=== PATIENT | female | born 1960 | race Caucasian/White ===

== ENCOUNTER 2022-04-14 08:03 | Outpatient (CLI) | payer OTHER, SELFPAY | END 2022-04-14 08:04 | disposition home or self-care (01) | LOC: WOUND 08:04 | PROVIDERS: PCP Nurse Practitioner; Visit Provider Nurse Practitioner Family | DX: L59.9 Disorder of the skin and subcutaneous tissue related to radiation, unspecified (principal) | CPT/HCPCS: 11042; 97597 ==

== ENCOUNTER 2022-04-28 08:00 | Outpatient (CLI) | payer OTHER, SELFPAY | END 2022-04-28 08:01 | disposition home or self-care (01) | LOC: WOUND 08:00 | PROVIDERS: Visit Provider Nurse Practitioner Family | DX: L59.8 Other specified disorders of the skin and subcutaneous tissue related to radiation (principal); L03.115 Cellulitis of right lower limb | CPT/HCPCS: 11042 ==

== ENCOUNTER 2022-05-05 07:59 | Outpatient (CLI) | payer OTHER, SELFPAY | END 2022-05-05 08:00 | disposition home or self-care (01) | LOC: WOUND 07:59 | PROVIDERS: Visit Provider Nurse Practitioner Family | DX: L59.9 Disorder of the skin and subcutaneous tissue related to radiation, unspecified (principal); L03.115 Cellulitis of right lower limb | CPT/HCPCS: 97597 ==

== ENCOUNTER 2022-05-19 08:28 | Outpatient (CLI) | payer OTHER, SELFPAY | END 2022-05-19 08:29 | disposition home or self-care (01) | LOC: WOUND 08:29 | PROVIDERS: Visit Provider Nurse Practitioner Family | DX: L59.9 Disorder of the skin and subcutaneous tissue related to radiation, unspecified (principal); L03.115 Cellulitis of right lower limb | CPT/HCPCS: 97597 ==

== ENCOUNTER 2022-06-02 08:30 | Outpatient (CLI) | payer OTHER, SELFPAY | END 2022-06-02 08:31 | disposition home or self-care (01) | LOC: WOUND 08:30 | PROVIDERS: Visit Provider Nurse Practitioner Family | DX: L59.9 Disorder of the skin and subcutaneous tissue related to radiation, unspecified (principal); I87.311 Chronic venous hypertension (idiopathic) with ulcer of right lower extremity; L97.812 Non-pressure chronic ulcer of other part of right lower leg with fat layer exposed | CPT/HCPCS: 99212 ==

== ENCOUNTER 2022-06-16 12:28 | Outpatient (CLI) | payer OTHER, SELFPAY | END 2022-06-16 12:29 | disposition home or self-care (01) | LOC: WOUND 12:28 | PROVIDERS: Visit Provider Nurse Practitioner Family | DX: I87.311 Chronic venous hypertension (idiopathic) with ulcer of right lower extremity (principal); L97.812 Non-pressure chronic ulcer of other part of right lower leg with fat layer exposed; L59.9 Disorder of the skin and subcutaneous tissue related to radiation, unspecified | CPT/HCPCS: 99212 ==

== ENCOUNTER 2022-06-30 08:28 | Outpatient (CLI) | payer OTHER, SELFPAY ==
--- OUTSIDE RECORDS SUMMARY | 2022-06-30 08:29 | XMS_ITS | Clinical Summary ---
:1960 Author Organization [facility] Address [address] [place] [address] Care Team Providers Name Role Phone Allyson Resendiz APRN, C.N.P. Primary Care Provider [phone] Source Comments Patient records contain information from all sites at [facility]. For routine questions regarding patient records, call [phone] during business hours, M-F 8:00 AM - 5:00 PM Central Time. Record requests for emergency care only can be directed to [phone] at any time.[facility] Allergies Active Allergy Reactions Severity Noted Date Comments Adhesive Other (see comments) 01/21/2021 Skin it tay, bumpy and skin reddened in are a covered by bandaid Medications Medication Sig Dispensed Refills Start Date End Date Status B complex-vitamins (B Take 1 tablet 0 07/09/2014 Active COMPLEX 1) tablet by mouth daily. FSH/FLX/PRIM/CUR/BOR/OM3,6 Take 1 0 01/21/2014 Active ,9 5 (OMEGA 3-6-9 FATTY capsule by ACIDS ORAL) mouth daily. UNABLE TO FIND daily. 0 09/30/2013 Acti ve Amberen calcium carbonate-vitamin Take 1 tablet 0 04/04/2012 Active D3 (CALCIUM 600 + D,3,) by mouth 600 mg calcium- 200 unit daily. capsule tcniilvcpifm-Gh-adfw-quartz miner blasting Take 1 tablet 0 0 Active als tablet by mouth daily. verapamiL (VERELAN) 180 mg Take 1 30 capsule 1 04/14/2021 Active 24 hr capsuleIndications: capsule (180 Raynaud's Disease mg total) by mouth daily as needed (Reynaud's disease). atorvastatin (LIPITOR) 20 TAKE 1 90 tablet 3 08/29/2021 Active mg tabletIndications: TABLET(20 MG) Hypercholesterolemia BY MOUTH AT BEDTIME Active Problems Patient Care Coordination Note Formatting of this note might be differe nt from the original. 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 Last Assessment & Plan: Amanda is here for wound care of a cancer excision that was removed from her mid tibial shaft of the right leg. The area of the wound is 2 cm x 2 cm. There is no open area. The wound is healed. She has a dark staining on 2% of the wound from s ilver dressing. The wound was cleansed with saline and Hibiclens rinse well and dried. Skin prep was applied with a small medical legs border light. She will keep the area covered so the new skin well r ub on her pants. She is discharged from wound care and wi ll return only if needed Acne Rosacea 09/30/2014 Nodule Thyroid 04/28/2014 Overview: Per chest CT Hyperplasia Complex Endometrial Without Atypia 014 Nodule Pulmonary 01/27/2014 Overview: Right upper lobe /CT: benign appearing c alcification repeat CT in 3 months for stability Depression/Mireya/Bipolar NOS 12/13/2013 Overview: Mood disorder NOS. Hypercholesterolemia 03/23/2010 Raynaud's Disease 03/23/2010 Resolved Problems Problem Noted Date Resolved Date Varicose Vein Lower Extremity 06/11/2010 09/19/2017 Immunizations Name Administration Dates Next Due Influenza, Injectable, Quadrivalent 07/11/2019, 07/13/2017, 07/08/2015 Influenza, Unspecified 07/29/2016, 08/05/2015, 07/22/2014, 08/05/2013, 09/25/2012 Tdap 03/23/2010 influenza vaccine quad 09/18/2018 (FLUZONE/FLUARIX) (6 months and older)(PF) Family History Medical History Relation Name Comments Skin cancer Father Brain Tumor Mother Hyperlipidemia Mother Relation Name Status Comments Father Mother Social History Tobacco Use Types Packs/Day Years Used Date Smoking Tobacco: Never Smokeless Tobacco: Never Tobacco Cessation: Counseling Given: Yes Alcohol Use Standard Drinks/Week Comments Yes 0 (1 standard drink = 0.6 oz pure alcoho l) occassionally Alcohol Habits Answer Date Recorded How often do you have a drink containing alcohol? Never 02/02/2021 How many drinks containing alcohol do you have on a Not aske d typical day when you are drinking? How often do you have six or more drinks on one occasion? No t asked Comment: occassionally 09/19/2017 Social Isolation Answer Date Recorded In a typical week, how many times do you Patient refused 02/02/2021 talk on the phone with family, friends, or neighbors? How often do you get together with friends Patient refused 02/02/2021 or relatives? How often do you attend worship or christianity More than 4 time s per year 02/02/2021 services? Do you belong to any clubs or organizations No 02/02/2021 such as worship groups, unions, fraternal or athletic groups, or school groups? How often do you attend meetings of the Never 02/02/2021 clubs or organizations you belong to? Are you now , , , 02/02/2021 , never or living with a partner? Stress Answer Date Recorded Do you feel stress - tense, restless, nervous, or Only a lit tle 01/14/2021 anxious, or unable to sleep at night because your mind is troubled all the time - these days? Financial Resource Strain Answer Date Recorded How hard is it for you to pay for the very basics like Not h miya at all 02/02/2021 food, housing, medical care, and heating? Intimate Partner Violence Answer Date Recorded Within the last year, have you been afraid of your partner o r No 02/02/2021 ex-partner? Within the last year, have you been humiliated or emotionall y No 02/02/2021 abused in other ways by your partner or ex-partner? Within the last year, have you been kicked, hit, slapped, or No 01/14/2021 otherwise physically hurt by your partner or ex-partner? Within the last year, have you been raped or forced to have any No 02/02/2021 kind of sexual activity by your partner or ex-partner? Food Insecurity Answer Date Recorded Within the past 12 months, you worried that your food would Never true 01/14/2021 run out before you got money to buy more. Within the past 12 months, the food you bought just didn't N ever true 01/14/2021 last and you didn't have money to get more. Transportation Needs Answer Date Recorded In the past 12 months, has lack of transportation kept you f rom No 02/02/2021 medical appointments or from getting medications? In the past 12 months, has lack of transportation kept you f rom No 02/02/2021 meetings, work, or getting things needed for daily living? Housing Stability Answer Date Recorded In the last 12 months, was there a time when you were not No t asked able to pay the mortgage or rent on time? In the last 12 months, how many places have you lived? 1 02/02/2021 In the last 12 months, was there a time when you did not hav e Yes 02/02/[address] or slept in a long term (including now)? Education Answer Date Recorded What is the highest level of school Associate degree: monica patel, 02/02/2021 you have completed or the highest technical, or vocational p dariusz degree you have received? Sex Assigned at Date Recorded Not on file Last Filed Vital Signs Vital Sign Reading Time Taken Comments Blood Pressure 113/65 04/14/2021 2:51 PM CDT Pulse 77 04/14/2021 2:51 PM CDT Temperature 35.8 ??C (96.4 ??F) 04/14/2021 2:51 PM CDT Respiratory Rate 16 04/14/2021 2:51 PM CDT Oxygen Saturation 100% 01/27/2021 11:12 AM CDT Inhaled Oxygen Concentration - - Weight 80.4 kg (177 lb 4 oz) 04/14/2021 2:51 PM CDT Height 179.5 cm (5' 10.67) 04/14/2021 2:51 PM CDT Body Mass Index 24.95 04/14/2021 2:51 PM CDT Plan of Treatment Health Maintenance Due Date Last Done Comments CT Colonography 1960 Cologuard 1960 HIV Screening 1960 Hepatitis B Vaccines (1 of 1960 3 - 3-dose series) Zoster Vaccines (1 of 2) 02/29/2012 DTaP,Tdap,and Td Vaccines 03/23/2020 03/23/2010 (2 - Td or Tdap) Depression Screening 10/16/2021 (Annual PHQ-2) COVID-19 Vaccine (2 - 11/19/2021 10/22/2021 Moderna series) Influenza Vaccine (#1) 2022 07/11/2019, 09/18/2018, 07/13/2017, Additional history exists Colonoscopy 09/25/2022 09/25/2017 (Performed elsewhere), 06/14/2012 Colorectal Cancer 09/25/2022 Surveillance Mammogram 10/26/2022 10/26/2021, 10/20/2020, 10/17/2019, Additional history exists Fasting Glucose for 09/22/2024 09/22/2021, 09/18/2018, Diabetes Screening 10/03/2016, Additional history exists Lipid (Cholesterol) 09/22/2026 09/22/2021, 09/18/2018, Screening 09/19/2017, Additional history exists Pneumococcal vaccine (0-64 Aged Out No lo nger eligible years) based on patient 's age to complete this topic Insurance Payer Benefit Plan / Subscriber ID Effective Phone Address T ype Group Dates [facility] [id number] 2015-Pres [phone] [address] PPO OPEN ACCESS ent [address] [place] [address] Care Teams Automotive Power Electronics Engineer Relationship Specialty Start Date End Date Allyson Resendiz, ASHIA, C.N.P. PCP - General 03/30/17 [address] [facility] [phone] (work)
--- OUTSIDE RECORDS SUMMARY | 2022-06-30 08:29 | XMS_ITS | Encounter Summary ---
:1960 Author Organization [facility] Address [address] [place] [address] Care Team Providers Name Role Phone Allyson Resendiz APRN, C.N.P. Primary Care Provider [phone] Encounter Details Date Type Department Care Team Description 09/22/2021 Orders Only Department of Family Allyson Resendiz APR N, Medicine, [facility], C.N. P. in [facility] [address] [address] [place] [address] [phone] Social History Tobacco Use Types Packs/Day Years Used Date Smoking Tobacco: Never Smokeless Tobacco: Never Alcohol Use Standard Drinks/Week Comments Yes 0 [...] or relatives? How often do you attend caodaism or christian More than 4 time s per year 02/02/2021 services? Do you belong to any clubs or organizations No 02/02/2021 such as caodaism groups, unions, fraternal or athletic groups, or [...] place to sleep or slept in a jail (including now)? Education Answer Date Recorded What is the highest level of school Associate degree: monica patel, 02/02/2021 you have completed or the highest technical, or vocational p dariusz degree you have received? Sex Assigned at Date Recorded Not on file documented as of this encounter Plan of Treatment Not on filedocumented as of this encounter Visit Diagnoses Not on filedocumented in this encounter Care Teams Yard Inspector Relationship Specialty Start Date End Date Allyson Resendiz, ASHIA, C.N.P. PCP - General 03/30/17 [address] [place] [phone] documented as of this encounter
--- OUTSIDE RECORDS SUMMARY | 2022-06-30 08:29 | XMS_ITS | Clinical Summary ---
:1960 Author Organization [facility] [place] [address] Care Team Providers Name Role Phone Ember Hebert GEAR REPAIR SUPERVISOR Unavailable Allyson Resendiz NP Unavailable Allyson Resendiz NP Primary Care Provider Allergies Active Allergy Reactions Severity Noted Date Comments Adhesive Rash 01/21/2021 Skin itchy, bum py and skin reddened in area covered by bandaid Medications Medication Sig Dispensed Refills Start Date End Date Status VERAPAMIL HCL Take 180 mg by 0 A ctive (VERAPAMIL ORAL) mouth once daily. MULTIVITAMIN ORAL Take 1 tablet by 0 Active mouth once daily. CALCIUM Take 1 tablet by 0 Act kenton CARBONATE/VITAMIN D3 mouth once daily. (CALCIUM + D ORAL) MAGNESIUM CITRATE ORAL Take 1 tablet by 0 Active mouth once daily. ibuprofen (ADVIL; Take 1 tablet by 60 tablet 0 07/30/2014 Active MOTRIN) 600 mg tablet mouth 4 times daily if needed. Maximum of 3200 mg in 24 hours. vitamin B complex (B Take 1 tablet by 0 Active COMPLEX 1) tablet mouth once daily. FSH/FLX/PRIM/CUR/BOR/OM Take 1 capsule by 0 Active 3,6,9 5 (OMEGA 3-6-9 mouth. FATTY ACIDS ORAL) atorvastatin (LIPITOR) TAKE 1 TABLET(20 0 09/14/2020 Active 20 mg tablet MG) BY MOUTH AT BEDTIME Active Problems Problem Noted Date Other acne Raynaud's syndrome Family History Medical History Relation Name Comments Cancer-breast Neg. Relation Name Status Comments Neg. Social History Tobacco Use Types Packs/Day Years Used Date Never Smoker Smokeless Tobacco: Never Used Alcohol Use Standard Drinks/Week Comments No 0 (1 standard drink = 0.6 oz pure alcoho l) rarely Alcohol Habits Answer Date Recorded How often do you have a drink containing alcohol? Not asked How many drinks containing alcohol do you have on a typical Not asked day when you are drinking? How often do you have six or more drinks on one occasion? No t asked Comment: rarely 07/29/2014 Sex Assigned at Date Recorded Not on file Obstetrics History Last Filed Vital Signs Vital Sign Reading Time Taken Comments Blood Pressure 122/63 08/19/2021 4:14 PM CDT Pulse 70 08/19/2021 5:37 PM CDT Temperature 37.1 ??C (98.7 ??F) 08/19/2021 4:14 PM CDT Respiratory Rate 16 08/19/2021 4:14 PM CDT Oxygen Saturation 100% 08/19/2021 5:37 PM CDT Inhaled Oxygen Concentration - - Weight 77.1 kg (169 lb 14.4 oz) 08/19/2021 5:37 PM CDT Height 177.8 cm (5' 10) 03/22/2019 1:48 PM CDT Body Mass Index 24.38 03/22/2019 1:48 PM CDT Plan of Treatment Health Maintenance Due Date Last Done Comments COVID-19 vaccine series (#1) 1960 Tdap 1973 Depression screening for age 12+ 1974 Hepatitis C screening for age 18-79 02/29/1980 Tetanus booster 1982 Pap test for age 21-65 1983 Lipids for age 45-75 2007 Mammogram for age 45-75 03/06/2010 03/06/2009, 02/20/2008 Zoster (shingles) series for age 50+ (1 of 02/29/2012 2) BMI (ht and wt on same day) for age 18+ 03/22/2020 03/22/20 19 Influenza for age 50-64 06/16/2022 Colonoscopy through age 75 09/25/2027 09/25/2017 Results Not on filefrom Last 3 Months Insurance Payer Benefit Plan / Subscriber ID Effective Dates Phone Addre ss Type Group [facility] [id number] 2015-en [address] [place] [address] BLUE CROSS BLUE CROSS OF [id number] 2013-Katie [address] [facility] [place] [address] Amanda Osorio Personal/Family Self 1960 [id number] (Home) [place] [id number] Advance Directives Latest Code Status on File Code Status Date Activated Date Inactivated Comments Full Code 09/25/2017 10:29 AM 09/25/2017 4:37 PM Full Code 07/28/2014 6:00 PM 07/30/2014 2:04 PM Care Teams Senior Sales Operations Analyst Relationship Specialty Start Date End Date Allyson Resendiz NP PCP - General Nurse Practitioner 03/17/16 Ember Hebert NP 06/21/[address] [place] [address] Allyson Resendiz NP Nurse Practitioner 12/16/13
--- OUTSIDE RECORDS SUMMARY | 2022-06-30 08:29 | XMS_ITS | Encounter Summary ---
:1960 Author Organization [facility] Address [address] [place] [address] Care Team Providers Name Role Phone Allyson Resendiz APRN C.N.PKarol Primary Care Provider [phone] Reason for Referral Outpatient (Routine) - Closed Specialty Diagnoses / Procedures Referred By Contact Refer red To Contact Diagnoses Screening Mammogram Breast Cancer Allyson Resendiz APRN, [facility] Region Procedures BI Breast Screening Bilateral with Tomosynthesis C.N.P. [address] [phone] Referral ID Status Reason Start Date Expiration Date Visits Requ ested Visits Authorized [id number] Closed 10/05/2021 10/05/2022 1 1 SAFETY COORDINATOR Reason for Visit Outpatient (Routine) - Closed Specialty Diagnoses / Procedures Referred By Contact Refer red To Contact Diagnoses Screening Mammogram Breast Cancer Allyson Resendiz APRN, [facility] Region Procedures BI Breast Screening Bilateral with Tomosynthesis C.N.P. [address] [place] [phone] Referral ID Status Reason Start Date Expiration Date Visits Requ ested Visits Authorized [id number] Closed 10/05/2021 10/05/2022 1 1 Encounter Details Date Type Department Care Team Description 10/26/2021 Hospital Encounter Department of Allyson Resendiz Mammogram Radiology john Luther APRN C.N.P. Breast Cancer [place], [place] [address] [place] [phone] Social History Tobacco Use Types Packs/Day Years [...] or relatives? How often do you attend sikhism or rastafari More than 4 time s per year 02/02/2021 services? Do you belong to any clubs or organizations No 02/02/2021 such as sikhism groups, unions, fraternal or athletic groups, or [...] on file documented as of this encounter Medications at Time of Discharge Medication Sig Dispensed Refills Start Date End Date atorvastatin (LIPITOR) 20 mg TAKE 1 TABLET(20 90 tablet 3 1 10/29/2020 tabletIndications: MG) BY MOUTH AT Hypercholesterolemia BEDTIME B complex-vitamins (B COMPLEX Take 1 tablet by 0 07/09/2014 1) tablet mouth daily. calcium carbonate-vitamin D3 Take 1 tablet by 0 0 04/04/2012 (CALCIUM 600 + D,3,) 600 mg mouth daily. calcium- 200 unit capsule FSH/FLX/PRIM/CUR/BOR/OM3,6,9 5 Take 1 capsule 0 0 01/21/2014 (OMEGA 3-6-9 FATTY ACIDS ORAL) by mouth daily. xwzekwuteenv-Ia-hsgr-minerals Take 1 tablet by 0 01/14/2010 tablet mouth daily. UNABLE TO FIND daily. Amberen 0 09/30/2013 verapamiL (VERELAN) 180 mg 24 Take 1 capsule 30 capsule 1 hr capsuleIndications: (180 mg total) Raynaud's Disease by mouth daily as needed (Reynaud's disease). documented as of this encounter Plan of Treatment Not on filedocumented as of this encounter Procedures Procedure Name Priority Date/Time Associated Comments Diagnosis BI BREAST SCREENING RAD - Routine 10/26/2021 9:53 Screening Resu lts for BILATERAL WITH (most inpatients AM SITE SAFETY COORDINATOR Mammogram Breast this procedure TOMOSYNTHESIS and all Cancer are in the outpatients) results section. documented in this encounter Results BI Breast Screening Bilateral with Tomosynthesis (10/26/2021 9:53 AM SITE SAFETY COORDINATOR) Anatomical Region Laterality Modality Breast, Breast Imaging [facility], Breast Imaging [facility], [place] Bilateral Mammography Imaging [facility] Specimen (Source) Anatomical Collection Method Collection Time Re ceived Time Location / / Volume Laterality 10/26/2021 10:00 AM SITE SAFETY COORDINATOR Impressions 10/26/2021 10:03 AM SITE SAFETY COORDINATOR Negative. RECOMMENDATION: ??Annual Screening Mammo gram ASSESSMENT: ??BI-RADS: 1: Negative. Narrative 10/26/2021 10:03 AM SITE SAFETY COORDINATOR EXAM: ??BI BREAST SCREENING BILATERAL WITH TOMOSYNTHESIS Current study was evaluated with a [employer] Aided Detection (CAD) system. INDICATION: ??Screening mammogram. COMPARISON: ??Prior exam(s) were availab le and reviewed for comparison. DENSITY: ??c. The breast(s) are heteroge neously dense, which may obscure small masses. FINDINGS: ??No findings of malignancy. ? ?No significant change since prior exam. Procedure Note Mark Brush M.D. - 10/26/2021Formattin g of this note might be different from the original. EXAM: BI BREAST SCREENING BILATERAL WITH TOMOSYNTHESIS Current study was evaluated with a [employer] Aided Detection (CAD) system. INDICATION: Screening mammogram. COMPARISON: Prior exam(s) were available and reviewed for comparison. DENSITY: c. The breast(s) are heterogene ously dense, which may obscure small masses. FINDINGS: No findings of malignancy. No significant change since prior exam. IMPRESSION: Negative. RECOMMENDATION: Annual Screening Mammogr am ASSESSMENT: BI-RADS: 1: Negative. Jose Maria Paz APRNNGertrudis IMG BI PROCEDURES documented in this encounter Visit Diagnoses Diagnosis Screening Mammogram Breast Cancer documented in this encounter Care Teams Internet Retailer Relationship Specialty Start Date End Date Allyson Resendiz APRN, C.N.P. PCP - General 03/30/17 [address] [place] [phone] documented as of this encounter
--- OUTSIDE RECORDS SUMMARY | 2022-06-30 08:30 | XMS_ITS | Encounter Summary ---
:1960 Author Organization [facility] Address [address] [place] [address] Care Team Providers Name Role Phone Allyson Resendiz APRN, C.N.P. Primary Care Provider [phone] Reason for Visit Reason Comments Med Refill Encounter Details Date Type Department Care Team Description 10/14/2020 Refill Department of Family Medicine, [place] Resendiz APRN, Med Refill [facility], in C.N.P. [place], [place] [address] [address] [place], [place] [address] [phone] Social History Tobacco Use Types Packs/Day Years [...] or relatives? How often do you attend cheondoism or episcopalian More than 4 time s per year 02/02/2021 services? Do you belong to any clubs or organizations No 02/02/2021 such as cheondoism groups, unions, fraternal or athletic groups, or [...] place to sleep or slept in a fdc (including now)? Sex Assigned at Date Recorded Not on file documented as of this encounter Plan of Treatment Not on filedocumented as of this encounter Visit Diagnoses Diagnosis Raynaud's Disease documented in this encounter Care Teams Manager Pediatric Relationship Specialty Start Date End Date Allyson Resendiz, ASHIA, C.N.P. PCP - General 03/30/[address] [place] [phone] documented as of this encounter
--- OUTSIDE RECORDS SUMMARY | 2022-06-30 08:30 | XMS_ITS | Encounter Summary ---
:1960 Author Organization [facility] Address [address] [place] [address] Care Team Providers Name Role Phone Allyson Resendiz APRN C.N.P. Primary Care Provider [phone] Encounter Details Date Type Department Care Team Description 02/25/2021 Orders Only Department of Replaced By [facility] Internal Medicine in Jose Maria ANGNAlfred Roberson [place], [place] [address] [facility] [address] [place] [phone] (Wo rk) Social History Tobacco Use Types Packs/Day Years [...] or relatives? How often do you attend adventism or pentecostal More than 4 time s per year 02/02/2021 services? Do you belong to any clubs or organizations No 02/02/2021 such as adventism groups, unions, fraternal or athletic groups, or [...] place to sleep or slept in a skilled nursing (including now)? Education Answer Date Recorded What [...] on filedocumented in this encounter Care Teams Inside Sales Person Relationship Specialty Start Date End Date Allyson Resendiz, ASHIA, C.N.P. PCP - General 03/30/17 [address] [place] [phone] documented as of this encounter
--- OUTSIDE RECORDS SUMMARY | 2022-06-30 08:30 | XMS_ITS | Encounter Summary ---
:1960 Author Organization [facility] Address [address] [place] [address] Care Team Providers Name Role Phone Allyson Resendiz APRN, C.N.P. Primary Care Provider [phone] Reason for Visit Reason Comments Med Refill Encounter Details Date Type Department Care Team Description 09/10/2020 Refill Department of Family Medicine, [place] Resendiz APRN, Med Refill [facility], in C.N.P. [place], [place] [address] [address] [place], [place] [phone] [phone] Social History Tobacco Use Types Packs/Day Years [...] How often do you attend worship or mandaen More than 4 time s per year [...] place to sleep or slept in a group home (including now)? Sex Assigned at Date Recorded Not on file documented as of this encounter Plan of Treatment Not on filedocumented as of this encounter Visit Diagnoses Diagnosis Hypercholesterolemia documented in this encounter Care Teams Medical Office Technologist Relationship Specialty Start Date End Date Allyson Resendiz, ASHIA, C.N.P. PCP - General 03/30/[address] [phone] documented as of this encounter
--- OUTSIDE RECORDS SUMMARY | 2022-06-30 08:30 | XMS_ITS | Encounter Summary ---
:1960 Author Organization [facility] Address [address] [place] [address] Care Team Providers Name Role Phone Allyson Resendiz APRN, C.N.P. Primary Care Provider [phone] Reason for Visit Reason Comments Med Refill Encounter Details Date Type Department Care Team Description 08/26/2021 Refill Department of Family Medicine, [place] Resendiz APRN, Med Refill [facility], in [place], [place] [address] [address] [place] [address] [phone] Social History Tobacco Use Types Packs/Day Years [...] or relatives? How often do you attend taoist or temple More than 4 time s per year 02/02/2021 services? Do you belong to any clubs or organizations No 02/02/2021 such as taoist groups, unions, fraternal or athletic groups, or [...] place to sleep or slept in a assisted (including now)? Education Answer Date Recorded What [...] Hypercholesterolemia documented in this encounter Care Teams Parts Designer Relationship Specialty Start Date End Date Allyson Resendiz, ASHIA, C.N.P. PCP - General 03/30/[address] [place] [address] documented as of this encounter
--- OUTSIDE RECORDS SUMMARY | 2022-06-30 08:30 | XMS_ITS | Encounter Summary ---
:1960 Author Organization [facility] Address [address] [place] [address] Care Team Providers Name Role Phone Allyson Resendiz APRN, C.N.P. Primary Care Provider [phone] Reason for Visit Reason Comments Other infection on right lower leg . Appointment Request (Routine) - Closed Specialty Diagnoses / Procedures Referred By Contact Refer red To Contact Family Medicine Referral ID Status Reason Start Date Expiration Date Visits Requ ested Visits Authorized [id number] Closed 01/14/2021 01/14/2022 1 1 Encounter Details Date Type Department Care Team Description 01/14/2021 Office Visit Department of Kimber Coy In[facility] ASHIA, C.N .P. Postoperative Initial Medicine in [address] [place] [address] (Primary Dx) [address] [address] [place], [place] [phone] [address] (Work) [phone] Social History Tobacco Use Types Packs/Day Years [...] or relatives? How often do you attend episcopalian or mu-ism More than 4 time s per year 02/02/2021 services? Do you belong to any clubs or organizations No 02/02/2021 such as episcopalian groups, unions, fraternal or athletic groups, or [...] place to sleep or slept in a retirement (including now)? Sex Assigned at Date Recorded Not on file documented as of this encounter Last Filed Vital Signs Vital Sign Reading Time Taken Comments Blood Pressure 111/55 01/14/2021 3:20 PM CDT Pulse 83 01/14/2021 3:20 PM CDT Temperature 37.2 ??C (99 ??F) 01/14/2021 3:20 PM CDT Respiratory Rate 16 01/14/2021 3:20 PM CDT Oxygen Saturation - - Inhaled Oxygen Concentration - - Weight - - Height - - Body Mass Index - - documented in this encounter Patient Instructions Patient InstructionsDuKimber clemens APRN, C.N.P. - 01/14/2021 3:00 PM CDT 1. Change the wound daily. 2. Cleanse the wound with Hibiclens and water. 3.Rinse well and pat dry. 4.Apply the santyl to the wound bed only and cover with 2 x 2 gauze. 5. Apply the skin prep to the periwound skin and allow to dry. Open over a sink or garbage 6 Apply the telfa island 7. Ok to leave the dressing on when you shower. 8. Go to the ER if the redness travels beyond the skin marker.Flu like symptoms: fever, chills, headache 9. Return in one week. documented in this encounter Progress Notes Kimber Coy APRN, C.N.P. - 01/14/2021 3:00 PM CDT SUBJECTIVE CHIEF COMPLAINT / REASON FOR VISIT Amanda Osorio is a 60 y.o. female who presents for evaluation of Other (infection on right lower leg.). HISTORY OF PRESENT ILLNESS Amanda is here for initial wound care visit. She had been getting wound care at [facility]. She is here for 2nd opinion. 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 She had 21 courses of radiation last July- August. She has had infections and has been on various antibiotics since October and November. She currentlyis on cephalexin starting yesterday as ordered by the patient ambassador. The following portions of the patient's history were reviewed and updated as appropriate: allergies, current medications, family history, medical history, social history, surgical history and problem list. OBJECTIVE BP 111/55 (BP Location: Left arm, Patient Position: Sitting, Cuff Size: Regular) Pulse 83 Temp 37.2 ??C (Temporal) Resp 16 All other systems reviewed and are negative. PHYSICAL EXAMINATION Constitutional: well nourished/hydrated/groomed, no acute distress Skin: See assessment and plan below ASSESSMENT / PLAN #1 Infection Wound Postoperative Initial Assessment & Plan: Amanda had a cancerous lesion removed with 21 radiation treatments. [facility] [place] She has been a a series of antibiotics since October and November. She is currently on cephalexin. She had wound culture done at the patient ambassador yesterday andresults are pending. She had EpiFix applied through the Dermatology office. EpiFix is amniotic tissue which stimulates cell growth. She states it did not do much for healing. The wound on the anterior mid tibial shaft area the right lower leg measures 2.5 cm x 2 cm x 0.1 cm.The wound is mostly slough with to bubbles of red granulating type tissue in the center of the wound. She has a large area of periwound erythema with a red streak running down her medial leg to below her inner malleolus. This area was outlined with a skin marker. The wound was cleansed with saline and Hibiclens, rinsed well with saline and dried. Due to the amount of slough within the wound bed, Santyl was applied to the wound bed only covered with a sterile 2 x 2. Skin prep was applied around the periwound skin allowed to dry and a Telfa island was applied. She was given 1 g Rocephin with lidocaine. She will continue taking her cephalexin oral medication. She will return 1 week for ongoing wound care. She has been experiencing chills. I requested that if the erythema goes beyond the skin markings of today that she present to the emergency department. She has cellulitis and the erythema has advanced quickly per her report today. I also did mention if she has any fevers or chills headaches any flu-like feeling or symptoms she needs to get to the ER for the cellulitis. She verbalized understanding. Orders: - cefTRIAXone 1 g in lidocaine 1%; 1 g, intramuscular, Once, [facility] 01/14/21 at 1615, For 1 doseFOR IM INJECTION ONLY DO NOT GIVE IF PATIENT HAS LIDOCAINE ALLERGY Reconstitute with lidocaine 1% to a concentration of 350 mg/mL: 500 mg vial: add 1 mL 1 g vial: add 2.1 mL 2 g vial: add 4.2 mL Lidocaine volume is the reconstitution volume - draw up appropriate dose Record configured for RN compounding, check math before compounding Drug Monitoring Program: Pharmacist to adjust medication dosing based on indication and drug clearance factors.Indications: Skin and soft tissue infection She will return in 1 week for ongoing wound care documented in this encounter Miscellaneous Notes Assessment & Plan Note - Kimber Coy APRN, C.N.P. - 01/14/2021 6:06 PM CDT Associated Problem(s): Infection Wound Postoperative Subsequent Amanda had a cancerous lesion removed with 21 radiation treatments. [facility] [place]. She has been a a series of antibiotics since October and November. She is currently on cephalexin. She had wound culture done at the patient ambassador yesterday andresults are pending. She had EpiFix applied through the Dermatology office. EpiFix is amniotic tissue which stimulates cell growth. She states it did not do much for healing. The wound on the anterior mid tibial shaft area the right lower leg measures 2.5 cm x 2 cm x 0.1 cm.The wound is mostly slough with to bubbles of red granulating type tissue in the center of the wound. She has a large area of periwound erythema with a red streak running down her medial leg to below her inner malleolus. This area was outlined with a skin marker. The wound was cleansed with saline and Hibiclens, rinsed well with saline and dried. Due to the amount of slough within the wound bed, Santyl was applied to the wound bed only covered with a sterile 2 x 2. Skin prep was applied around the periwound skin allowed to dry and a Telfa island was applied. She was given 1 g Rocephin with lidocaine. She will continue taking her cephalexin oral medication. She will return 1 week for ongoing wound care. She has been experiencing chills. I requested that if the erythema goes beyond the skin markings of today that she present to the emergency department. She has cellulitis and the erythema has advanced quickly per her report today. I also did mention if she has any fevers or chills headaches any flu-like feeling or symptoms she needs to get to the ER for the cellulitis. She verbalized understanding. documented in this encounter Plan of Treatment Not on filedocumented as of this encounter Visit Diagnoses Diagnosis Infection Wound Postoperative Initial - Primary documented in this encounter Administered Medications Inactive Administered Medications - up to 3 most recent administrations Medication Order MAR Action Action Date Dose Rate Site cefTRIAXone 1 g in Given 01/14/2021 4:18 PM 1 g Left Ventrogluteal lidocaine 1% CDT 1 g, intramuscular, Once, [place] 01/14/21 at 1615, For 1 dose, FOR IM INJECTION ONLY DO NOT GIVE IF PATIENT HAS LIDOCAINE ALLERGY Reconstitute with lidocaine 1% to a concentration of 350 mg/mL: 500 mg vial: add 1 mL 1 g vial: add 2.1 mL 2 g vial: add 4.2 mL Lidocaine volume is the reconstitution volume - draw up appropriate dose Record configured for RN compounding, check math before compounding , Drug Monitoring Program: Pharmacist to adjust medication dosing based on indication and drug clearance factors., Indications: Skin and soft tissue infection documented in this encounter Care Teams Buckle Assembler Relationship Specialty Start Date End Date Allyson Resendiz APRN, C.N.P. PCP - General 03/30/170 [address] [facility] [place] [address] documented as of this encounter
--- OUTSIDE RECORDS SUMMARY | 2022-06-30 08:30 | XMS_ITS | Encounter Summary ---
:1960 Author Organization [facility] Address [address] [place] [address] Care Team Providers Name Role Phone Astrid Allyosn Luther APRN, C.N.P. Primary Care Provider [phone] Encounter Details Date Type Department Care Team Description 02/02/2021 Orders Only [facility] PCP TH Sa torri Ramsay M.D. [address] [place], [place] [phone] (Wo rk) Social History Tobacco Use Types [...] or relatives? How often do you attend evangelical or moravian More than 4 time s per year 02/02/2021 services? Do you belong to any clubs or organizations No 02/02/2021 such as evangelical groups, unions, fraternal or athletic groups, or [...] place to sleep or slept in a senior living (including now)? Education Answer Date Recorded What is the highest level of school Associate degree: mnoica patel, 02/02/2021 you have completed or the highest technical, or vocational saeid arzola degree you have received? Sex Assigned at Date Recorded Not on file documented as of this encounter Plan of Treatment Not on filedocumented as of this encounter Visit Diagnoses Not on filedocumented in this encounter Care Teams Oiler Bander Relationship Specialty Start Date End Date Allyson Resendiz, ASHIA, C.N.P. PCP - General 03/30/[address] [address] documented as of this encounter
--- OUTSIDE RECORDS SUMMARY | 2022-06-30 08:30 | XMS_ITS | Encounter Summary ---
:1960 Author Organization [facility] Address [address] [place] [address] Care Team Providers Name Role Phone Allyson Resendiz APRN, C.N.P. Primary Care Provider [phone] Encounter Details Date Type Department Care Team Description 10/05/2017 Hospital Encounter Department of Allyson Resendiz Mammogram Radiology in [place] Luther, C.N.P. Average Risk Patient [place], [place] [address] [address] [phone] Social History Tobacco Use Types Packs/Day Years [...] or relatives? How often do you attend religion or yazidi More than 4 time s per year 02/02/2021 services? Do you belong to any clubs or organizations No 02/02/2021 such as religion groups, unions, fraternal or athletic groups, or [...] place to sleep or slept in a half-way (including now)? Sex Assigned at Date Recorded Not on file documented as of this encounter Medications at Time of Discharge Medication Sig Dispensed Refills Start Date End Date B complex-vitamins (B Take 1 tablet by 0 07/09/20 14 COMPLEX 1) tablet mouth daily. calcium Take 1 tablet by 0 04/04/2012 carbonate-vitamin D3 mouth daily. (CALCIUM 600 + D,3,) 600 mg calcium- 200 unit capsule FSH/FLX/PRIM/CUR/BOR/OM Take 1 capsule by 0 01/21 3,6,9 5 (OMEGA 3-6-9 mouth daily. FATTY ACIDS ORAL) iatqjyjymumx-Ex-pomy-mi Take 1 tablet by 0 2009 nerals tablet mouth daily. UNABLE TO FIND daily. Amberen 0 09/30/2013 atorvastatin Take 1 tablet (20 mg 90 tablet 3 09/19/2017 (for_LIPITOR) 20 mg total) by mouth at tablet bedtime. ketoconazole Apply 1 application 0 09/30/2014 (for_NIZORAL) 2 % topically 2 (two) shampoo times a week. metroNIDAZOLE Apply 1 application 0 09/30/2014 (for_ROSADAN) 0.75 % topically every gel morning. tretinoin (for_RETIN-A) Apply 1 application 0 04/05/2019 0.025 % cream topically at bedtime. verapamil (for_VERELAN) Take 1 capsule (180 90 capsule 3 02/201709/18/2018 180 mg 24 hr capsule mg total) by mouth daily. Uses only in winter months documented as of this encounter Plan of Treatment Not on filedocumented as of this encounter Procedures Procedure Name Priority Date/Time Associated Comments Diagnosis BI BREAST RAD - Routine 10/05/2017 9:06 Screening Results for this SCREENING (most inpatients AM SOLAR INSTALLER TECHNICIAN Mammogram Average proced ure are in BILATERAL and all Risk Patient the results outpatients) section. documented in this encounter Results BI Breast Screening Bilateral (10/05/2017 9:06 AM SOLAR INSTALLER TECHNICIAN) Anatomical Region Laterality Modality Breast Bilateral Mammography Specimen (Source) Anatomical Collection Method Collection Time Re ceived Time Location / / Volume Laterality 10/05/2017 11:07 AM SOLAR INSTALLER TECHNICIAN Impressions 10/05/2017 11:10 AM SOLAR INSTALLER TECHNICIAN IMPRESSION: ??Benign. RECOMMENDATION: ??Annual Screening Mammo gram ASSESSMENT: ??BI-RADS: 2: Benign. Narrative 10/05/2017 11:10 AM SOLAR INSTALLER TECHNICIAN EXAM: ??BI BREAST SCREENING BILATERAL Current study was evaluated with a Compu ter Aided Detection (CAD) system. INDICATION: ??Screening mammogram. COMPARISON: ??Prior exams were available for comparison dating to 2006. DENSITY: ??c. The breast(s) are heteroge neously dense, which may obscure small masses. FINDINGS: ??No findings of malignancy. ? ?No significant change since prior exam. Mole markers are placed on the left je[address]. Stable well-circumscribed asymmetries are also stable. No suspicio us changes are observed. Procedure Note Fredrick Walker [place] - 10/05/2017 EXAM: BI BREAST SCREENING BILATERAL Current study was evaluated with a Compu ter Aided Detection (CAD) system. INDICATION: Screening mammogram. COMPARISON: Prior exams were available f or comparison dating to 2006. DENSITY: c. The breast(s) are heterogene ously dense, which may obscure small masses. FINDINGS: No findings of malignancy. No significant change since prior exam. Mole markers are placed on the left je[address]. Stable well-circumscribed asymmetries are also stable. No suspicio us changes are observed. IMPRESSION: Benign. RECOMMENDATION: Annual Screening Mammogr am ASSESSMENT: BI-RADS: 2: Benign. Allyson Resendiz APRN, C.N.P. IMG BI PROCEDURES documented in this encounter Visit Diagnoses Diagnosis Screening Mammogram Average Risk Patient documented in this encounter Care Teams Mobile Sales Assistant Relationship Specialty Start Date End Date Allyson Resendiz APRN, C.N.P. PCP - General 03/30/17 [address] [place] [address] documented as of this encounter
--- OUTSIDE RECORDS SUMMARY | 2022-06-30 08:30 | XMS_ITS | Encounter Summary ---
:1960 Author Organization [facility] Address [address] [place] [address] Care Team Providers Name Role Phone Allyson Resendiz APRN, C.N.P. Primary Care Provider [phone] Reason for Visit Reason Comments Med Refill Encounter Details Date Type Department Care Team Description 09/30/2019 Refill Department of Family Medicine, [place] Resendiz APRN, Med Refill [facility], in [place], [place] [address] [address] [place], [place] [address] [phone] Social History Tobacco Use Types Packs/Day Years [...] or relatives? How often do you attend gnosticist or restorationist More than 4 time s per year 02/02/2021 services? Do you belong to any clubs or organizations No 02/02/2021 such as gnosticist groups, unions, fraternal or athletic groups, or [...] place to sleep or slept in a [place] [facility] [place] (including now)? Sex Assigned at Date Recorded Not on file documented as of this encounter Plan of Treatment Not on filedocumented as of this encounter Visit Diagnoses Diagnosis Hypercholesterolemia documented in this encounter Care Teams Rn Neonatal Relationship Specialty Start Date End Date Allyson Resendiz, ASHIA, C.N.P. PCP - General 03/30/[address] [address] documented as of this encounter
--- OUTSIDE RECORDS SUMMARY | 2022-06-30 08:30 | XMS_ITS | Encounter Summary ---
:1960 Author Organization [facility] Address [address] [place] [address] Care Team Providers Name Role Phone Allyson Resendiz APRN, C.N.PKarol Primary Care Provider [phone] Encounter Details Date Type Department Care Team Description 08/07/2018 Orders Only Department of Family Allyson Resendiz Scr eening Mammogram Medicine, [place] C.N.PKarol Average Risk Patient Clinic, in [place], [address] (Primary Dx) [address] [address] [place], [place] [phone] [address] (Work) [phone] Social History Tobacco Use Types Packs/Day Years [...] or relatives? How often do you attend bahai or mu-ism More than 4 time s per year 02/02/2021 services? Do you belong to any clubs or organizations No 02/02/2021 such as bahai groups, unions, fraternal or athletic groups, or [...] Not on filedocumented as of this encounter Results BI Breast Screening Bilateral (10/10/2018 9:20 AM TESTING CONSULTANT) Anatomical Region Laterality Modality Breast, Breast Imaging RST LOS, Breast Imaging ARZ LOS, Cee st Bilateral Mammography Imaging FLA LOS Specimen (Source) Anatomical Collection Method Collection Time Re ceived Time Location / / Volume Laterality 10/10/2018 9:58 AM TESTING CONSULTANT Impressions 10/10/2018 10:00 AM TESTING CONSULTANT IMPRESSION: ??Negative. RECOMMENDATION: ??Annual Screening Mammo gram ASSESSMENT: ??BI-RADS: 1: Negative. Narrative 10/10/2018 10:00 AM TESTING CONSULTANT EXAM: ??BI BREAST SCREENING BILATERAL Current study was evaluated with a Compu ter Aided Detection (CAD) system. INDICATION: ??Screening mammogram. COMPARISON: ??Prior exam(s) were availab le and reviewed for comparison. DENSITY: ??c. The breast(s) are heteroge neously dense, which may obscure small masses. FINDINGS: ??No mammographic findings of malignancy. Procedure Note Natalie Powell M.D. - 10/10/2018Forma tting of this note might be different from the original. EXAM: BI BREAST SCREENING BILATERAL Current study was evaluated with a Compu ter Aided Detection (CAD) system. INDICATION: Screening mammogram. COMPARISON: Prior exam(s) were available and reviewed for comparison. DENSITY: c. The breast(s) are heterogene ously dense, which may obscure small masses. FINDINGS: No mammographic findings of ma lignancy. IMPRESSION: Negative. RECOMMENDATION: Annual Screening Mammogr am ASSESSMENT: BI-RADS: 1: Negative. Allyson Resendiz APRN, C.N.P. IMG BI PROCEDURES documented in this encounter Visit Diagnoses Diagnosis Screening Mammogram Average Risk Patient - Primary Screening Mammogram Average Risk Patient documented in this encounter Care Teams Flood Control Engineer Relationship Specialty Start Date End Date Allyson Resendiz APRN, C.N.P. PCP - General 03/30/[address] [facility] [place] [address] documented as of this encounter
--- OUTSIDE RECORDS SUMMARY | 2022-06-30 08:30 | XMS_ITS | Encounter Summary ---
:1960 Author Organization [facility] Address [address] [place] [address] Care Team Providers Name Role Phone Allyson Resendiz APRN C.N.PKarol Primary Care Provider [phone] Reason for Referral Outpatient (Routine) - Closed Specialty Diagnoses / Procedures Referred By Contact Refer red To Contact Diagnoses Screening Mammogram Breast Cancer Allyson Resendiz APRN, [facility] [place] [facility] Procedures BI Breast Screening Bilateral C.N.P. [address] [place] [address] [phone] Referral ID Status Reason Start Date Expiration Date Visits Requ ested Visits Authorized [id number] Closed 09/24/2020 09/24/2021 1 1 CE SUPPORT CLERK Reason for Visit Outpatient (Routine) - Closed Specialty Diagnoses / Procedures Referred By Contact Refer red To Contact Diagnoses Screening Mammogram Breast Cancer Allyson Resendiz APRN, [facility] [place] [facility] Procedures BI Breast Screening Bilateral C.N.P. [address] [place] [address] [phone] Referral ID Status Reason Start Date Expiration Date Visits Requ ested Visits Authorized [id number] Closed 09/24/2020 09/24/2021 1 1 Encounter Details Date Type Department Care Team Description 10/20/2020 Hospital Encounter Department of Allyson Resendiz Mammogram Radiology john Luther APRN C.N.PKarol Breast Cancer [place], [place] [address] [place] [phone] Social History Tobacco Use Types Packs/Day [...] or relatives? How often do you attend alevism or moravian More than 4 time s per year 02/02/2021 services? Do you belong to any clubs or organizations No 02/02/2021 such as alevism groups, unions, fraternal or athletic groups, or [...] slept in a long term (including now)? Sex Assigned at Date Recorded Not on file documented as of this encounter Medications at Time of Discharge Medication Sig Dispensed Refills Start Date End Date B complex-vitamins (B COMPLEX Take 1 tablet 0 1) tablet by mouth daily. calcium carbonate-vitamin D3 Take 1 tablet 0 03/17 (CALCIUM 600 + D,3,) 600 mg by mouth daily. calcium- 200 unit capsule FSH/FLX/PRIM/CUR/BOR/OM3,6,9 Take 1 capsule 0 05/2014 5 (OMEGA 3-6-9 FATTY ACIDS by mouth daily. ORAL) jlwurtetjopj-Ju-pnjk-minerals Take 1 tablet 0 10/2009 tablet by mouth daily. UNABLE TO FIND daily. Amberen 0 09/30/2013 atorvastatin (LIPITOR) 20 mg TAKE 1 90 tablet 3 020 08/27/2021 tabletIndications: TABLET(20 MG) Hypercholesterolemia BY MOUTH AT BEDTIME verapamiL (VERELAN) 180 mg 24 TAKE 1 CAPSULE 90 capsule 3 04/14/2021 hr capsuleIndications: BY MOUTH EVERY Raynaud's Disease DAY documented as of this encounter Plan of Treatment Not on filedocumented as of this encounter Procedures Procedure Name Priority Date/Time Associated Comments Diagnosis BI BREAST RAD - Routine 10/20/2020 8:45 Screening Results for this SCREENING (most inpatients AM OFFICE SUPPORT CLERK Mammogram Breast procedu re are in BILATERAL and all Cancer the results outpatients) section. documented in this encounter Results BI Breast Screening Bilateral (10/20/2020 8:45 AM OFFICE SUPPORT CLERK) Anatomical Region Laterality Modality Breast, Breast Imaging RST LOS, Breast Imaging ARZ LOS, Cee st Bilateral Mammography Imaging FLA LOS Specimen (Source) Anatomical Collection Method Collection Time Re ceived Time Location / / Volume Laterality 10/20/2020 8:50 AM OFFICE SUPPORT CLERK Impressions 10/20/2020 8:51 AM OFFICE SUPPORT CLERK Negative. RECOMMENDATION: ??Annual Screening Mammo gram ASSESSMENT: ??BI-RADS: 1: Negative. Narrative 10/20/2020 8:51 AM OFFICE SUPPORT CLERK EXAM: ??BI BREAST SCREENING BILATERAL Current study was evaluated with a Compu ter Aided Detection (CAD) system. INDICATION: ??Screening mammogram. COMPARISON: ??Prior exam(s) were availab le and reviewed for comparison. DENSITY: ??c. The breast(s) are heteroge neously dense, which may obscure small masses. FINDINGS: ??No mammographic findings of malignancy. Procedure Note Salvador Turcios M.D. - 10/20/2020Forma tting of this note might be different [...] ASSESSMENT: BI-RADS: 1: Negative. Allyson Resendiz APRN, C.N.PKarol IMLeela BI PROCEDURES documented in this encounter Visit Diagnoses Diagnosis Screening Mammogram Breast Cancer documented in this encounter Care Teams Revenue Stamp Cutter Relationship Specialty Start Date End Date Allyson Resendiz, ASHIA, C.N.P. PCP - General 03/30/[address] [place] [address] documented as of this encounter
--- OUTSIDE RECORDS SUMMARY | 2022-06-30 08:30 | XMS_ITS | Encounter Summary ---
:1960 Author Organization [facility] Address [address] [place] [address] Care Team Providers Name Role Phone Allyson Resendiz APRN, C.N.P. Primary Care Provider [phone] Encounter Details Date Type Department Care Team Description 09/18/2018 Hospital Encounter Department of Allyson Resendiz Raynaud 's Disease; Laboratory Medicine ASHIA Luther C.N .PKarol Screening Examination Diabetes Mellitus in [facility] [address] [address] [place], [place] [phone] (Work) [phone] Social History Tobacco Use Types Packs/Day Years [...] or relatives? How often do you attend methodist or christianity More than 4 time s per year 02/02/2021 services? Do you belong to any clubs or organizations No 02/02/2021 such as methodist groups, unions, fraternal or athletic groups, or [...] place to sleep or slept in a mcc (including now)? Sex Assigned at Date Recorded Not on file documented as of this encounter Medications at Time of Discharge Medication Sig Dispensed Refills Start Date End Date B complex-vitamins (B Take 1 tablet by 0 07/09/20 14 COMPLEX 1) tablet mouth daily. calcium carbonate-vitamin Take 1 tablet by 0 03/17 D3 (CALCIUM 600 + D,3,) 600 mouth daily. mg calcium- 200 unit capsule FSH/FLX/PRIM/CUR/BOR/OM3,6, Take 1 capsule by 0 0 01/21/2014 9 5 (OMEGA 3-6-9 FATTY mouth daily. ACIDS ORAL) aiostiwrtiet-Ku-mxrb-minera Take 1 tablet by 0 ls tablet mouth daily. UNABLE TO FIND daily. Amberen 0 09/30/2013 atorvastatin (LIPITOR) 20 Take 1 tablet (20 90 tablet 3 01/201810/01/2019 mg tabletIndications: mg total) by mouth Hypercholesterolemia at bedtime. ketoconazole (for_NIZORAL) Apply 1 0 4 04/05/2019 2 % shampoo application topically 2 (two) times a week. metroNIDAZOLE (for_ROSADAN) Apply 1 0 09/30/20 14 04/05/2019 0.75 % gel application topically every morning. tretinoin (for_RETIN-A) Apply 1 0 02/03/2016 0 04/05/2019 0.025 % cream application topically at bedtime. verapamil (VERELAN) 180 mg Take 1 capsule 90 capsule 3 09/1810/17/2020 24 hr capsuleIndications: (180 mg total) by Raynaud's Disease mouth daily. Uses only in winter months documented as of this encounter Plan of Treatment Not on filedocumented as of this encounter Procedures Procedure Name Priority Date/Time Associated Diagnosis Comme nts GLUCOSE, FASTING, Routine 09/18/2018 8:54 AM Screening Resu lts for this S/P LABEL PRINTING MACHINIST Examination Diabetes procedu re are in Mellitus the results section. BASIC METABOLIC Routine 09/18/2018 8:54 AM Raynaud's Disease R esults for this PANEL, S/P LABEL PRINTING MACHINIST procedure are i n the results section. documented in this encounter Results (ABNORMAL) Glucose, Fasting (09/18/2018 8:54 AM LABEL PRINTING MACHINIST) athologist Signature Glucose, 104 (H) 70 - 99 09/18/2018 [facility] Fasting, S mg/dL 11:06 AM [facility] Specimen Anatomical Collection Method Collection Time Receive d Time (Source) Location / / Volume Laterality Blood (Blood, 09/18/2018 8:54 AM 09/18/20 18 Venous) LABEL PRINTING MACHINIST 10:37 AM LABEL PRINTING MACHINIST Allyson Resendiz APRN, C.N.P. LAB BLOOD NON ADD-ON Performing Organization Address City/State/ZIP Code Phon e Number [facility] [address] [place] [phone] LAB (ABNORMAL) BMP (Basic Metabolic Panel) (09/18/2018 8:54 AM LABEL PRINTING MACHINIST) athologist Signature Potassium, S 5.6 (H) 3.6 - 5.2 09/18/2018 [facility] mmol/L 11:06 AM [facility] Sodium, S 146 (H) 135 - 145 09/18/2018 [facility] mmol/L 11:06 AM [facility] Chloride, S 107 98 - 107 09/18/2018 [facility] mmol/L 11:06 AM [facility] Bicarbonate, S 31 (H) 22 - 29 09/18/2018 [facility] mmol/L 11:06 AM [facility] Anion Gap 8 7 - 15 09/18/2018 [facility] 11:06 AM [facility] BUN (Blood Urea 14 6 - 21 09/18/2018 [facility] Nitrogen), S mg/dL 11:06 AM [facility] Creatinine 0.78 0.59 - 09/18/2018 [facility] 1.04 mg/dL 11:06 AM [facility] eGFR-Non 85 >=60 09/18/2018 [facility] Black/ mL/min/BSA 11:06 AM [facility] LAB Comment: ----ADDITIONAL INFORMATION---- Estimated GFR calculated using the 2009 CKD_EPI creatinine equation. eGFR-Black/ >90 >=60 mL/min/BSA 2017 11:06 [facility] [place] [facility] Comment: ----ADDITIONAL INFORMATION---- Estimated GFR calculated using the 2009 CKD_EPI creatinine equation. Calcium, Total, S 10.5 (H) 8.6 - 10.0 mg/dL 09/18/2018 1 1:06 AM [facility] [place] [facility] Glucose, S CANCELED mg/dL 09/18/2018 10:38 AM [facility] [place] [facility] Comment: Test not performed. See Fasting Glucose result. Result canceled by the ancillary Specimen Anatomical Collection Method Collection Time Receive d Time (Source) Location / / Volume Laterality Blood (Blood, 09/18/2018 8:54 AM 09/18/20 18 Venous) LABEL PRINTING MACHINIST 10:37 AM LABEL PRINTING MACHINIST Allyson Resendiz APRN, C.N.P. LAB BLOOD ADD-ON Performing Organization Address City/State/ZIP Code Phon e Number [facility] [address] [place] [phone] LAB documented in this encounter Visit Diagnoses Diagnosis Raynaud's Disease Screening Examination Diabetes Mellitus documented in this encounter Care Teams Infusion Rn Relationship Specialty Start Date End Date Allyson Resendiz APRN, C.N.P. PCP - General 03/30/[address] [address] documented as of this encounter
--- OUTSIDE RECORDS SUMMARY | 2022-06-30 08:30 | XMS_ITS | Encounter Summary ---
:1960 Author Organization [facility] Address [address] [place] [address] Care Team Providers Name Role Phone Allyson Resendiz APRN, C.N.P. Primary Care Provider [phone] Reason for Visit Reason Comments Sinus Problem Was seen in Urgent care at [facility] on 03/[facility]/19 & prescribed Augmentin Still not getting better. Sore Throat Appointment Request (Routine) - Closed Specialty Diagnoses / Procedures Referred By Contact Refer red To Contact Family Medicine Referral ID Status Reason Start Date Expiration Date Visits Requ ested Visits Authorized [id number] Closed 04/05/2019 04/04/2020 1 Encounter Details Date Type Department Care Team Description 04/05/2019 Office Visit Department of Family Ruma Cason, Nish sawant's Disease (Primary Dx); Medicine, Adan Martin Sinusitis; Clinic, in [address] Other Allergic Rhinitis [place], [place] [address] [address] [place], [place] [phone] [address] (Work) [phone] Social History Tobacco Use Types Packs/Day Years [...] or relatives? How often do you attend congregation or restoration More than 4 time s per year 02/02/2021 services? Do you belong to any clubs or organizations No 02/02/2021 such as congregation groups, unions, fraternal or athletic groups, or [...] or slept in a assisted (including now)? 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 - 04/05/2019 10:00 AM CDT CHIEF COMPLAINT/REASON FOR VISIT Sinus pressure and congestion HISTORY OF PRESENT ILLNESS This 59-year old female presents to clinic secondary to sinus pressure and congestion. She started to become ill 03/13/2019 with a sore throat and a fever. The symptoms persisted and she tried to go towork 03/18/2019 but was sent home. By 03/22/2019 symptoms had progressed and she went to the urgent care clinic and was prescribed a 7 day course of Augmentin. She improved to a degree but the symptomsdid not fully resolve. She feels like there is some postnasal drip and she has had episodic yellowish nasal discharge. She does have a prescription for Flonase for her allergies but she has not utilized the product. She is having no palpitations. She does have a sensation of congestion in her chest with cough. She normally follows with she normally follows with SKarol Jimenezom,CHIEF SERVICE DISPATCHER. She is taking other medications as prescribed. EMR reviewed. CURRENT MEDICATIONS Current Outpatient Medications: ??? atorvastatin (LIPITOR) 20 mg tablet, Take 1 tablet (20 mg total) by mouth at bedtime., Disp: 90 tablet, Rfl: 3 ??? B complex-vitamins (B COMPLEX 1) tablet, Take 1 tablet by mouth daily., Disp: , Rfl: ??? calcium carbonate-vitamin D3 (CALCIUM 600 + D,3,) 600 mg calcium- 200 unit capsule, Take 1 tablet by mouth daily. , Disp: , Rfl: ??? FSH/FLX/PRIM/CUR/BOR/OM3,6,9 5 (OMEGA 3-6-9 FATTY ACIDS ORAL), Take 1 capsule by mouth daily., Disp: , Rfl: ??? UNABLE TO FIND, daily. Alejandra, Disp: , Rfl: ??? verapamil (VERELAN) 180 mg 24 hr capsule, Take 1 capsule (180 mg total) by mouth daily. Uses only in winter months, Disp: 90 capsule, Rfl: 3 ??? amoxicillin-pot clavulanate (AUGMENTIN) 875-125 mg per tablet, Take 1 tablet by mouth 2 (two) times a day for 7 days., Disp: 20 tablet, Rfl: 0 No Known Allergies REVIEW OF SYSTEMS Negative review of major organ systems apart from that noted in the HPI and past medical surgical history. Past Medical History: Diagnosis Date ??? Acne Rosacea 09/30/2014 ??? Hypercholesterolemia 03/23/2010 ??? Nodule Thyroid 04/28/[address] ??? Raynaud's Disease 03/23/2010 Past Surgical History: Procedure Laterality Date ??? BIOPSY THYROID, PERCUTANEOUS CORE NEEDLE.. 06/12/2015 Negative for malignancy, benign thyroid nodule with degenerative changes. [facility] ??? COLONOSCOPY 06/14/2012 ??? COLONOSCOPY 09/25/2017 KIM/Randall Mallory, Wan miralax prep, quality good. repeat in 5yrs ??? COLPOSCOPY 03/31/2010 ??? HYSTERECTOMY ??? LAPAROSCOPIC TOTAL HYSTERECTOMY N/A 07/29/2014 Total laparoscopic hysterectomy ??? REMOVAL OF OVARIAN CYST N/A 03/30/1987 Ovarian cystectomy ??? VARICOSE VEIN STRIPPING N/A 03/30/2006 Varicose vein stripping PREVENTIVE SERVICES Tobacco use: None. Mammogram: 10/10/2018. Pap smear: 04/04/2012 Chlamydia: Non applicable secondary to stated age. Colon screenin09/25/2007 recheck plan for 5 years-Dr. Blas at [address] Depression: No Asthma: No Lipids: 09/18/2018, elevated Tdap booster: 03/23/2010. Influenza 09/18/2018 ?? SOCIAL HISTORY Alcohol monthly. No other social drugs. Caffeine weekly soda. Family History Problem Relation Age of Onset ??? Brain Tumor Mother ??? Hyperlipidemia Mother ??? Skin cancer Father Vitals: 04/05/19 0956 BP: 108/68 Pulse: 82 Resp: 20 Temp: 37.4 ??C TempSrc: Temporal SpO2: 96% Weight: 83.8 kg PHYSICAL EXAM General: Neatly dressed well groomed. HEENT: . Ears: TMs are welch, good visualization of landmarks. Nose: Mucosal membranes pink and moistbut boggy. Oral: No exudates. Teeth in good condition. No pharyngeal erythema. Neck: Range of motionconsistent with patient's stated age body habitus. Trachea midline. Lymph nodes: No cervical adenopathy. Thyroid: No thyroid masses, tenderness or enlargement. Heart: Regular rate and rhythm. No clicks, rubs or murmurs. Lungs: Clear to auscultation. No palpable chest wall masses. ASSESSMENT/PLAN 1. Sinusitis with treatment in process 2. Other allergic rhinitis with treatment to be restarted 3. Raynaud's disease currently stable Supportive measures discussed in detail. Will recommend a repeat course of generic Augmentin and newRx is sent to her pharmacy. Would recommend she restart her Flonase. She does not want a new prescription for this product. She will continue her other's prescription medications. Risks and benefits ofmedications discussed. All questions answered. Signs and symptoms to lead to emergent evaluation arereviewed. See the medication reconciliation and preventive services. She is comfortable with plan. documented in this encounter Plan of Treatment Not on filedocumented as of this encounter Visit Diagnoses Diagnosis Raynaud's Disease - Primary Sinusitis Other Allergic Rhinitis documented in this encounter Care Teams Rock Wool Insulator Relationship Specialty Start Date End Date Allyson Resendiz, ASHIA, C.N.P. PCP - General 03/30/[address] [place] [address] documented as of this encounter
--- OUTSIDE RECORDS SUMMARY | 2022-06-30 08:30 | XMS_ITS | Encounter Summary ---
:1960 Author Organization [facility] Address [address] [place] [address] Care Team Providers Name Role Phone Allyson Resendiz APRN, C.N.P. Primary Care Provider [phone] Reason for Visit Reason Comments Wound Care right lower leg Appointment Request (Routine) - Closed Specialty Diagnoses / Procedures Referred By Contact Refer red To Contact Community Internal Medicine Referral ID Status Reason Start Date Expiration Date Visits Requ ested Visits Authorized [id number] Closed 01/21/2021 01/21/2022 1 1 Encounter Details Date Type Department Care Team Description 01/27/2021 Office Visit Department of Kimber Coy Infection [place] Community Internal V., ASHIA, C.N .P. Postoperative Initial Medicine in [address] [place] [address] (Primary Dx) [address] [address] [place], [place] [phone] [address] (Work) [phone] Social History Tobacco Use Types Packs/Day Years [...] or relatives? How often do you attend anglican or jew More than 4 time s per year 02/02/2021 services? Do you belong to any clubs or organizations No 02/02/2021 such as anglican groups, unions, fraternal or athletic groups, or [...] place to sleep or slept in a custodial (including now)? Sex Assigned at Date Recorded Not on file documented as of this encounter Last Filed Vital Signs Vital Sign Reading Time Taken Comments Blood Pressure 111/61 01/27/2021 11:12 AM CDT Pulse 69 01/27/2021 11:12 AM CDT Temperature 36.7 ??C (98.1 ??F) 01/27/2021 11:12 AM CDT Respiratory Rate 16 01/27/2021 11:12 AM CDT Oxygen Saturation 100% 01/27/2021 11:12 AM CDT Inhaled Oxygen Concentration - - Weight - - Height - - Body Mass Index - - documented in this encounter Patient Instructions Patient InstructionsDuKimber clemens APRN, C.N.P. - 01/27/2021 11:00 AM CDT Continue current wound care documented in this encounter Progress Notes Kimber Coy APRN, C.N.P. - 01/27/2021 11:00 AM CDT SUBJECTIVE CHIEF COMPLAINT / REASON FOR VISIT Amanda Osorio is a 60 y.o. female who presents for evaluation of Wound Care (right lower leg). 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 [facility] [place] She is currently on antibiotic. She also sees chiropractic treatment. The following portions of the patient's history were reviewed and updated as appropriate: allergies,current medications, family history, medical history, social history, surgical history and problem list. OBJECTIVE BP 111/61 (BP Location: Left arm, Patient Position: Sitting, Cuff Size: Regular) Pulse 69 Temp 36.7 ??C (Temporal) Resp 16 SpO2 100% All other systems reviewed and are negative. PHYSICAL EXAMINATION Constitutional: well nourished/hydrated/groomed, no acute distress Skin: See assessment and plan below ASSESSMENT / PLAN #1 Infection Wound Postoperative Initial Assessment & Plan: Wound care of excisional wound right mid tibial shaft for cancerous lesion removal. She is currentlytaking Cipro 500 mg twice a day for 2 weeks. She was under the care of [facility] in [place]. She also sees a chiropractor who does laser treatments to increase circulation. She went on Monday and will go back on . The wound measures 3.5 x 2 x 0.1 deep. The wound bed shows 20% granulation 80% slough. There is a deeper area of erythema in the periwound area. This is not warm to touch. It does not streak. She feelsit is from the laser treatment she is receiving from the chiropractor to stimulate healing The wounds cleansed with saline and Hibiclens rinse well and dried. Santyl was applied to the wound bed covered with sterile 2 x 2 and a Telfa island dressing. She will continue daily dressing changes at home and return 1 week. documented in this encounter Miscellaneous Notes Assessment & Plan Note - Kimber Coy APRN, C.N.P. - 01/27/2021 2:06 PM CDT Associated Problem(s): Infection Wound Postoperative Subsequent Wound care of excisional wound right mid tibial shaft for cancerous lesion removal. She is currentlytaking Cipro 500 mg twice a day for 2 weeks. She was under the care of [facility] in [place]. She also sees a chiropractor who does laser treatments to increase circulation. She went on Monday and will go back on . The wound measures 3.5 x 2 x 0.1 deep. The wound bed shows 20% granulation 80% slough. There is a deeper area of erythema in the periwound area. This is not warm to touch. It does not streak. She feelsit is from the laser treatment she is receiving from the chiropractor to stimulate healing The wounds cleansed with saline and Hibiclens rinse well and dried. Santyl was applied to the wound bed covered with sterile 2 x 2 and a Telfa island dressing. She will continue daily dressing changes at home and return 1 week. documented in this encounter Plan of Treatment Not on filedocumented as of this encounter Visit Diagnoses Diagnosis Infection Wound Postoperative Initial - Primary documented in this encounter Care Teams Chain Pegger Relationship Specialty Start Date End Date Allyson Resendiz APRN, C.N.P. PCP - General 03/30/172[address] [address] documented as of this encounter
--- OUTSIDE RECORDS SUMMARY | 2022-06-30 08:30 | XMS_ITS | Encounter Summary ---
:1960 Author Organization [facility] Address [address] [place] [address] Care Team Providers Name Role Phone Allyson Resendiz APRN, C.N.P. Primary Care Provider [phone] Encounter Details Date Type Department Care Team Description 09/22/2021 Hospital Department of Allyson Resendiz Screening Exa mination Diabetes Mellitus; Encounter Laboratory ASHIA Luther, Hypercholestero lemia Medicine in C.N.P. [place], [address] [phone] Social History Tobacco Use Types Packs/Day Years [...] or relatives? How often do you attend orthodoxy or zoroastrian More than 4 time s per year 02/02/2021 services? Do you belong to any clubs or organizations No 02/02/2021 such as orthodoxy groups, unions, fraternal or athletic groups, or [...] place to sleep or slept in a snf (including now)? Education Answer Date Recorded What [...] 3-6-9 FATTY ACIDS ORAL) by mouth daily. exphjyzprini-Vi-sxtb-minerals Take 1 tablet by 0 01/14/2010 tablet [...] Name Priority Date/Time Associated Diagnosis Comme nts LIPID PANEL, S Routine 09/22/2021 8:16 Hypercholesterolemia Re sults for this AM DIRECTOR CORPORATE SALES procedure are i n the results section. GLUCOSE, FASTING, Routine 09/22/2021 8:16 Screening Examinatio n Results for this S/P AM DIRECTOR CORPORATE SALES Diabetes Mellitus procedure are in the results section. documented in this encounter Results Lipid Panel (09/22/2021 8:16 AM DIRECTOR CORPORATE SALES) P athologist Signature Cholesterol, 162 mg/dL 09/22/2021 OWAT Total 1:50 PM DIRECTOR CORPORATE SALES Comment: ----REFERENCE VALUE---- Desirable: < 200 Borderline high: 200 - 239 High: > or = 240 Triglycerides 70 mg/dL 09/22/2021 1:50 PM DIRECTOR CORPORATE SALES OWA T Comment: ----REFERENCE VALUE---- Normal: <150 Borderline high: 150-199 High: 200-499 Very high: > or =500 Cholesterol, HDL 61 >=50 mg/dL 09/22/2021 1:50 PM DIRECTOR CORPORATE SALES OWAT Calculated LDL 87 mg/dL 09/22/2021 1:50 PM DIRECTOR CORPORATE SALES OW AT Comment: ----REFERENCE VALUE---- Desirable: <100 mg/dL Above Desirable: 100-129 mg/dL Borderline High: 130-159 mg/dL High: 160-189 mg/dL Very High: >=190 mg/dL Cholesterol, Non-HDL, Calculated 101 mg/dL 021 1:50 PM DIRECTOR CORPORATE SALES [place] Comment: ----REFERENCE VALUE---- Desirable: <130 Above Desirable: 130-159 Borderline high: 160-189 High: 190-219 Very high: > or =220 Specimen Anatomical Collection Method Collection Time Receive d Time (Source) Location / / Volume Laterality Blood (Blood, 09/22/2021 8:16 AM 09/22/20 Venous) DIRECTOR CORPORATE SALES 10:39 AM DIRECTOR CORPORATE SALES Allyson Resendiz APRN, C.N.P. LAB BLOOD ADD-ON Performing Organization Address City/State/ZIP Code Phon e Number [facility]- [address] [place] [address] [facility] [place] [address] System in [place] [address] Glucose, Fasting (09/22/2021 8:16 AM DIRECTOR CORPORATE SALES) P athologist Signature Glucose, P 93 70 - 100 09/22/2021 OW[place] mg/dL 2:03 PM DIRECTOR CORPORATE SALES Last Intake 13 hr 09/22/2021 OWAT 10:36 AM DIRECTOR CORPORATE SALES Specimen Anatomical Collection Method Collection Time Receive d Time (Source) Location / / Volume Laterality Blood (Blood, 09/22/2021 8:16 AM 09/22/20 21 Venous) DIRECTOR CORPORATE SALES 10:36 AM DIRECTOR CORPORATE SALES Allyson Resendiz APRN, C.N.P. LAB BLOOD NON ADD-ON Performing Organization Address City/State/ZIP Code Phon e Number [facility]- [address] [place] [address] [place] [place] [address] System in [place] [address] [facility] documented in this encounter Visit Diagnoses Diagnosis Screening Examination Diabetes Mellitus Hypercholesterolemia documented in this encounter Care Teams Hand Presser Relationship Specialty Start Date End Date Allyson Resnediz APRN, C.N.P. PCP - General 03/30/[address]199 [place] [address] documented as of this encounter
--- OUTSIDE RECORDS SUMMARY | 2022-06-30 08:30 | XMS_ITS | Encounter Summary ---
:1960 Author Organization [facility] Address [address] [place] [address] Care Team Providers Name Role Phone Allyson Resendiz APRN, C.N.P. Primary Care Provider [phone] Encounter Details Date Type Department Care Team Description 10/17/2019 Hospital Encounter Department of Allyson Resendiz Mammogram Radiology in ASHIA Luther C.N.PKarol Breast Cancer [place], [place] [address] [phone] Social History Tobacco Use Types Packs/Day Years [...] or relatives? How often do you attend buddhism or amish More than 4 time s per year 02/02/2021 services? Do you belong to any clubs or organizations No 02/02/2021 such as buddhism groups, unions, fraternal or athletic groups, or [...] place to sleep or slept in a longterm (including now)? Sex Assigned at Date Recorded [...] 3-6-9 FATTY ACIDS by mouth daily. ORAL) xyfnavhtvjjs-Zq-bqwj-minerals Take 1 tablet 0 10/2009 tablet by mouth daily. UNABLE TO FIND daily. Amberen 0 09/30/2013 atorvastatin (LIPITOR) 20 mg TAKE 1 90 tablet 3 019 09/14/2020 tabletIndications: TABLET(20 MG) Hypercholesterolemia BY MOUTH AT BEDTIME verapamil (VERELAN) 180 mg 24 Take 1 capsule 90 capsule 3 10/17/2020 hr capsuleIndications: (180 mg total) Raynaud's Disease by mouth daily. Uses only in winter months documented as of this encounter Plan of Treatment Not on filedocumented as of this encounter Procedures Procedure Name Priority Date/Time Associated Comments Diagnosis BI BREAST RAD - Routine 10/17/2019 8:51 Screening Results for this SCREENING (most inpatients AM TRANSPORT ANALYST Mammogram Breast procedu re are in BILATERAL and all Cancer the results outpatients) section. documented in this encounter Results BI Breast Screening Bilateral (10/17/2019 8:51 AM TRANSPORT ANALYST) Anatomical Region Laterality Modality Breast, Breast Imaging RST LOS, Breast Imaging ARZ LOS, Cee st Bilateral Mammography Imaging FLA LOS Specimen (Source) Anatomical Collection Method Collection Time Re ceived Time Location / / Volume Laterality 10/17/2019 8:55 AM TRANSPORT ANALYST Impressions 10/17/2019 8:56 AM TRANSPORT ANALYST Negative. RECOMMENDATION: ??Annual Screening Mammo gram ASSESSMENT: ??BI-RADS: 1: Negative. Narrative 10/17/2019 8:56 AM TRANSPORT ANALYST EXAM: ??BI BREAST SCREENING BILATERAL Current study was evaluated with a Compu ter Aided Detection (CAD) system. INDICATION: ??Screening mammogram. COMPARISON: ??Prior exam(s) were availab le and reviewed for comparison. DENSITY: ??c. The breast(s) are heteroge neously dense, which may obscure small masses. FINDINGS: ??No mammographic findings of malignancy. Procedure Note Salvador Turcios M.D. - 10/17/2019Forma tting of this note might be different from the original. EXAM: BI BREAST SCREENING BILATERAL Current study was evaluated with a NoPaperForms.comu ter Aided Detection (CAD) system. INDICATION: Screening [...] Cancer documented in this encounter Care Teams Biology Tutor Relationship Specialty Start Date End Date Allyson Resendiz APRN, C.N.P. PCP - General 03/30/17 [address] [place] [address] documented as of this encounter
--- OUTSIDE RECORDS SUMMARY | 2022-06-30 08:30 | XMS_ITS | Encounter Summary ---
:1960 Author Organization [facility] Address [address] [place] [address] Care Team Providers Name Role Phone Allyson Resendiz APRN, C.N.P. Primary Care Provider [phone] Encounter Details Date Type Department Care Team Description 07/20/2021 Orders Only [facility] PCP [facility] MNT Allyson Resendiz S creening Examination ASHIA, C.N.P. Diabetes Mellitus [address] [place] [address] Social History Tobacco Use Types Packs/Day Years [...] or relatives? How often do you attend synagogue or mormon More than 4 time s per year 02/02/2021 services? Do you belong to any clubs or organizations No 02/02/2021 such as synagogue groups, unions, fraternal or athletic groups, or [...] place to sleep or slept in a penitentiary (including now)? Education Answer Date Recorded What is the highest level of school Associate degree: monica patel, 02/02/2021 you have completed or the highest technical, or vocational saeid arzola degree you have received? Sex Assigned at Date Recorded Not on file documented as of this encounter Plan of Treatment Not on filedocumented as of this encounter Results Glucose, Fasting (09/22/2021 8:16 AM SECONDARY ART TEACHER) P athologist Signature Glucose, P 93 70 - 100 09/22/2021 OWAT mg/dL 2:03 PM SECONDARY ART TEACHER Last Intake 13 hr 09/22/2021 OWAT 10:36 AM SECONDARY ART TEACHER Specimen Anatomical Collection Method Collection Time Receive d Time (Source) Location / / Volume Laterality Blood (Blood, 09/22/2021 8:16 AM 09/22/20 21 Venous) SECONDARY ART TEACHER 10:36 AM SECONDARY ART TEACHER Allyson Resendiz APRN, C.N.P. LAB BLOOD NON ADD-ON Performing Organization Address City/State/ZIP Code Phon e Number [facility]- [address] [place] [address] [facility] [place] [place] [address] System in [place] [address] [facility] [facility] documented in this encounter Visit Diagnoses Diagnosis Screening Examination Diabetes Mellitus documented in this encounter Care Teams Case Resource Manager Relationship Specialty Start Date End Date Allyson Resendiz APRN, C.N.P. PCP - General 03/30/[address], [place] [phone] documented as of this encounter
--- OUTSIDE RECORDS SUMMARY | 2022-06-30 08:30 | XMS_ITS | Encounter Summary ---
:1960 Author Organization [facility] Address [address] [place] [address] Care Team Providers Name Role Phone Allyson Resendiz APRN, C.N.P. Primary Care Provider [phone] Reason for Visit Reason Comments Ear Drainage Earache Encounter Details Date Type Department Care Team Description 08/19/2021 Nurse Triage Department of [facility] Esperanza Murcia ar Drainage; Earache Medicine, Juliaetta Jus RNatalee [facility], [facility], [address] [place] [address] [place] [address] Social History Tobacco Use Types Packs/Day [...] or relatives? How often do you attend holiness or cheondoism More than 4 time s per year 02/02/2021 services? Do you belong to any clubs or organizations No 02/02/2021 such as holiness groups, unions, fraternal or athletic groups, or [...] or slept in a half-way (including now)? Education Answer Date Recorded What is the highest level of school Associate degree: monica patel, 02/02/2021 you have completed or the highest technical, or vocational p dariusz degree you have received? Sex Assigned at Date Recorded Not on file documented as of this encounter Miscellaneous Notes Telephone Encounter - Esperanza Murcia R.N. - 08/19/2021 3:16 PM CDT Chief Complaint / Reason for Call Patient is a 61 y.o. female calling regarding Ear Drainage and Earache. Assessment Concern: Patient was having ear congestion. She took decongestant. She felt a pop in her ear 3 hoursago. She has develped ear pain for the past 2 hours. She says the pain is a nuisance more than anything with sharp jabs of pain reaching 7/10. She has ear surgery in April 2021. Present for: 3 hours Home cares tried: Applying tissue in ear Calling to request: Appointment The recommended disposition is See a health care provider within 24 hours. Plans on going to [facility] for further assistance. Patient was warm transferred to [facility] at the clinic for further assistance. No appointments available today Reason for Disposition ??? Ear pain Protocols used: EAR - [id number] Care Advice Patient/Caregiver understands and will follow care advice?: Yes, able to teach back SEE PCP WITHIN 24 HOURS: You need to be examined within the next 24 hours. Call your doctor (or ANIMAL HUSBANDRY TEACHER/PA) when the office opens and make an appointment. REASSURANCE AND EDUCATION: * The discharge is probably from a draining ear infection. * The discharge should be wiped away with a wet cotton ball as necessary. (Reason: discharge can cause skin irritation). PAIN MEDICINES: * For pain relief, you can take either acetaminophen, ibuprofen, or naproxen. * They are papq-idv-oobllmo (OTC) pain drugs. You can buy them at the drugstore. CALL BACK IF: * You become worse. documented in this encounter Plan of Treatment Not on filedocumented as of this encounter Visit Diagnoses Not on filedocumented in this encounter Care Teams Equipment Maint Tech Relationship Specialty Start Date End Date Allyson Resendiz, ASHIA, C.N.P. PCP - General [address] [place] [phone] documented as of this encounter
--- OUTSIDE RECORDS SUMMARY | 2022-06-30 08:30 | XMS_ITS | Encounter Summary ---
:1960 Author Organization [facility] Address [address] [place] [address] Care Team Providers Name Role Phone Allyson Resendiz APRN, C.N.P. Primary Care Provider [phone] Encounter Details Date Type Department Care Team Description 10/10/2018 Hospital Encounter Department of Allyson Resendiz Mammogram Radiology in ASHIA Luther, C.N.P. Average Risk Patient [place], [place] [address] [address] [phone] Social History Tobacco Use Types Packs/Day Years [...] or relatives? How often do you attend rastafarian or anabaptism More than 4 time s per year 02/02/2021 services? Do you belong to any clubs or organizations No 02/02/2021 such as rastafarian groups, unions, fraternal or athletic groups, or [...] place to sleep or slept in a care home (including now)? Sex Assigned at Date [...] (OMEGA 3-6-9 FATTY mouth daily. ACIDS ORAL) snqcsnaalzma-Tp-ywmk-minera Take 1 tablet by 0 ls tablet [...] Comments Diagnosis BI BREAST RAD - Routine 10/10/2018 9:20 Screening Results for this SCREENING (most inpatients AM VELVET CUTTER Mammogram Average proced ure are in BILATERAL and all Risk Patient the results outpatients) section. documented in this encounter Results BI Breast Screening Bilateral (10/10/2018 9:20 AM VELVET CUTTER) Anatomical Region Laterality Modality Breast, Breast Imaging RST LOS, Breast Imaging ARZ LOS, Cee st Bilateral Mammography Imaging FLA LOS Specimen (Source) Anatomical Collection Method Collection Time Re ceived Time Location / / Volume Laterality 10/10/2018 9:58 AM VELVET CUTTER Impressions 10/10/2018 10:00 AM VELVET CUTTER IMPRESSION: ??Negative. RECOMMENDATION: ??Annual Screening Mammo gram ASSESSMENT: ??BI-RADS: 1: Negative. Narrative 10/10/2018 10:00 AM VELVET CUTTER EXAM: ??BI BREAST SCREENING BILATERAL Current study was evaluated with a CrossFiberu Quture Aided Detection (CAD) system. INDICATION: ??Screening mammogram. [...] BILATERAL Current study was evaluated with a CrossFiberu Quture Aided Detection (CAD) system. INDICATION: Screening mammogram. [...] Patient documented in this encounter Care Teams Computer Lab Para Professional Relationship Specialty Start Date End Date Allyson Resendiz APRN, C.N.P. PCP - General 03/30/17 [address] [facility] [place] [address] documented as of this encounter
--- OUTSIDE RECORDS SUMMARY | 2022-06-30 08:30 | XMS_ITS | Encounter Summary ---
:1960 Author Organization [facility] Address [address] [place] [address] Care Team Providers Name Role Phone Allyson Resendiz APRN C.N.PKarol Primary Care Provider Reason for Visit Reason Comments Wound Infection Encounter Details Date Type Department Care Team Description 02/25/2021 Clinical Communication Department of [place] [facility], Adan Luther APRN C.N .PKarol Clinic, in [address] [address] [place], [place] [phone] (Work) [phone] Social History Tobacco Use Types Packs/Day Years [...] or relatives? How often do you attend christianity or scientologist More than 4 time s per year 02/02/2021 services? Do you belong to any clubs or organizations No 02/02/2021 such as christianity groups, unions, fraternal or athletic groups, or [...] place to sleep or slept in a fpc (including now)? Education Answer Date Recorded What is the highest level of school Associate degree: mnoica patel, 02/02/2021 you have completed or the highest technical, or vocational p dariusz degree you have received? Sex Assigned at Date Recorded Not on file documented as of this encounter Miscellaneous Notes Telephone Encounter - Nazanin Moreno R.N. - 02/25/2021 11:33 AM CDT Noted. Telephone Encounter - Montserrat Vizcarra - 02/25/2021 11:13 AM CDT Kibmer MORRELL did end up calling in an RX for her, patient is aware. Telephone Encounter - Aura Vu - 02/25/2021 10:11 AM CDT Reason for Communication: Patient called back wanting to speak with a nurse to see if she can get a antibiotic since she is going out of town. There were no open appts today in FB to make for her. Current Phone Number: [phone] Can Nursing/Provider leave a detailed message?: no Did the patient refuse triage through Nurse line? (for symptom based concerns): na Action Needed: Please call Amanda back. Name of Medication (if relevant): antibiotic for her leg documented in this encounter Plan of Treatment Not on filedocumented as of this encounter Visit Diagnoses Not on filedocumented in this encounter Care Teams Meat Hostess Relationship Specialty Start Date End Date Allyson Resendiz, ASHIA, C.N.P. PCP - General 03/30/[address] [place] [phone] documented as of this encounter
--- OUTSIDE RECORDS SUMMARY | 2022-06-30 08:30 | XMS_ITS | Encounter Summary ---
:1960 Author Organization [facility] Address [address] [place] [address] Care Team Providers Name Role Phone Allyson Resendiz APRN, C.N.P. Primary Care Provider [phone] Encounter Details Date Type Department Care Team Description 02/24/2021 Clinical Communication [facility] ASHIA C.N.PKarol [facility], [address] [address] [place], [place] [phone] [address] (Work) [phone] Social History Tobacco Use Types Packs/Day Years [...] How often do you attend worship or anglican More than 4 time s per year [...] place to sleep or slept in a fci (including now)? Education Answer Date Recorded What is the highest level of school Associate degree: monica patel, 02/02/2021 you have completed or the highest technical, or vocational p nicolásram degree you have received? Sex Assigned at Date Recorded Not on file documented as of this encounter Miscellaneous Notes Telephone Encounter - Montserrat Vizcarra - 02/25/2021 11:12 AM CDT Kimber called in an antibiotic to [facility], message was left on patient's phone in regards to that and to schedule an appointment for end of the month. Telephone Encounter - Kimber Coy APRN, C.N.P. - 02/24/2021 4:12 PM CDT Please have her make an appointment with an open proviser Telephone Encounter - Batsheva Walker - 02/24/2021 1:22 PM CDT Reason for Communication: Patient is calling in and stated that her infection is back in her right lower leg. Patient is wanting to see Kimber for wound care. Next available is 03/09/21. Patient is wanting to bee seen before then. Please advise. Current Can Nursing/Provider leave a detailed message?: yes Did the patient refuse triage through Nurse line? (for symptom based concerns): na Action Needed: Please call patient back Name of Medication (if relevant): na documented in this encounter Plan of Treatment Not on filedocumented as of this encounter Visit Diagnoses Not on filedocumented in this encounter Care Teams Incident Response Specialist Relationship Specialty Start Date End Date Allyson Resendiz APRN, C.N.P. PCP - General 03/30/[address] [place] [address] documented as of this encounter
--- OUTSIDE RECORDS SUMMARY | 2022-06-30 08:30 | XMS_ITS | Encounter Summary ---
:[address] [facility] Address [address] [place] [address] Care Team Providers Name Role Phone Allyson Resendiz APRN C.N.PKarol Primary Care Provider [phone] Reason for Visit Reason Comments Form Review [facility] Encounter Details Date Type Department Care Team Description 01/22/2021 Clinical Communication Department of Allyson Resendiz Review ([facility]) Family Medicine, ASHIA Luther, C.N.PKarol [facility], [address] [facility] [phone] [place] [address] [place], [place] (Work) [phone] Social History Tobacco Use Types Packs/Day [...] or relatives? How often do you attend latter day or baptism More than 4 time s per year 02/02/2021 services? Do you belong to any clubs or organizations No 02/02/2021 such as latter day groups, unions, fraternal or athletic groups, or [...] this encounter Miscellaneous Notes Telephone Encounter - Odalys Davis - 01/22/2021 10:57 AM CDT [facility] outside records have been uploaded into patient's chart under Chart Review tab / Encounters - Document Viewer Routed to Allyson Resendiz APRN, C.N.P.. documented in this encounter Plan of Treatment Not on filedocumented as of this encounter Visit Diagnoses Not on filedocumented in this encounter Care Teams Water Filterer Relationship Specialty Start Date End Date Allyson Resendiz APRN, C.N.P. PCP - General 03/30/17 [address] [place] [phone] documented as of this encounter
--- OUTSIDE RECORDS SUMMARY | 2022-06-30 08:30 | XMS_ITS | Encounter Summary ---
:1960 Author Organization [facility] Address [address] [place] [address] Care Team Providers Name Role Phone Allyson Resendiz APRN, C.N.P. Primary Care Provider [phone] Encounter Details Date Type Department Care Team Description 09/06/2021 Clinical Communication Department of [facility] [place] Resendiz, Medicine, [place] ASHIA, C.N.PKarol [facility], in [facility] [address] [address] [place], [place] [phone] (Work) [phone] Social History Tobacco Use Types Packs/Day Years [...] or relatives? How often do you attend baptist or jewish More than 4 time s per year 02/02/2021 services? Do you belong to any clubs or organizations No 02/02/2021 such as baptist groups, unions, fraternal or athletic groups, or [...] a [place] [facility] (including now)? Education Answer Date Recorded What is the highest level of school Associate degree: monica patel, 02/02/2021 you have completed or the highest technical, or vocational saeid arzola degree you have received? Sex Assigned at Date Recorded Not on file documented as of this encounter Plan of Treatment Not on filedocumented as of this encounter Results Lipid Panel (09/22/2021 8:16 AM SURVEY ASSOCIATE) athologist Signature Cholesterol, 162 mg/dL 09/22/2021 OWAT Total 1:50 PM SURVEY ASSOCIATE Comment: ----REFERENCE VALUE---- Desirable: < 200 Borderline high: 200 - 239 High: > or = 240 Triglycerides 70 mg/dL 09/22/2021 1:50 PM SURVEY ASSOCIATE [place] T Comment: ----REFERENCE VALUE---- Normal: <150 Borderline high: 150-199 High: 200-499 Very high: > or =500 Cholesterol, HDL 61 >=50 mg/dL 09/22/2021 1:50 PM SURVEY ASSOCIATE OWAT Calculated LDL 87 mg/dL 09/22/2021 1:50 PM SURVEY ASSOCIATE OW AT Comment: ----REFERENCE VALUE---- Desirable: <100 mg/dL Above Desirable: 100-129 mg/dL Borderline High: 130-159 mg/dL High: 160-189 mg/dL Very High: >=190 mg/dL Cholesterol, Non-HDL, Calculated 101 mg/dL 021 1:50 PM SURVEY ASSOCIATE OWAT Comment: ----REFERENCE VALUE---- Desirable: <130 Above Desirable: 130-159 Borderline high: 160-189 High: 190-219 Very high: > or =220 Specimen Anatomical Collection Method Collection Time Receive d Time (Source) Location / / Volume Laterality Blood (Blood, 09/22/2021 8:16 AM 09/22/20 21 Venous) SURVEY ASSOCIATE 10:39 AM SURVEY ASSOCIATE Allyson Resendiz APRN, C.N.P. LAB BLOOD ADD-ON Performing Organization Address City/State/ZIP Code Phon e Number [facility]- [address] [place] [address] [place] [address] System in [place] [address] documented in this encounter Visit Diagnoses Diagnosis Hypercholesterolemia - Primary documented in this encounter Care Teams Stock Wetter Relationship Specialty Start Date End Date Allyson Resendiz, ASHIA, C.N.P. PCP - General 03/30/[address] [place] [address] documented as of this encounter
--- OUTSIDE RECORDS SUMMARY | 2022-06-30 08:30 | XMS_ITS | Encounter Summary ---
:1960 Author Organization [facility] Address [address] [place] [address] Care Team Providers Name Role Phone Allyson Resendiz APRN, C.N.P. Primary Care Provider [phone] Reason for Visit Reason Comments COVID Inquiry Encounter Details Date Type Department Care Team Description 01/14/2021 Clinical Communication Department of [facility] [place] Resendiz, COVID Inquiry [facility] ASHIA, C.N.PKarol [facility], [facility], [address] [place] [address] [place], [place] [phone] (Work) [phone] Social History Tobacco Use Types Packs/Day Years [...] or relatives? How often do you attend denominational or hoahaoism More than 4 time s per year 02/02/2021 services? Do you belong to any clubs or organizations No 02/02/2021 such as denominational groups, unions, fraternal or athletic groups, or [...] or slept in a jail (including now)? Sex Assigned at Date Recorded Not on file documented as of this encounter Miscellaneous Notes Telephone Encounter - Naya Bustos - 01/14/2021 9:01 AM CDT What is the purpose of the call?: Standard Appointment Process Standard Appointment Process Have you tested positive for COVID-19 in the last 20 days OR do you have a pending COVID-19 test because you had symptoms?: No, neither apply What region is the appointment being requested?: Less than 20 days RST, SW[facility]I or [facility]N In the past 14 days are any of the following symptoms new to you and not related to an existing health condition?: No symptoms noted In the past 14 days have you had close contact* with a person who has a LABORATORY CONFIRMED case ofCOVID-19?: No exposure noted, follow appt process (End Screening) Testing Recommendation Endpoint Is testing recommended? : Not recommended to test Plan: Endpoint recommendation: Followed regional OTG *Reminder if sending patient for testing in [facility] or [facility], route encounter to the correct testing pool. documented in this encounter Plan of Treatment Not on filedocumented as of this encounter Visit Diagnoses Not on filedocumented in this encounter Care Teams Analytic Programmer Relationship Specialty Start Date End Date Allyson Resendiz, ENTERPRISE INTEGRATION ARCHITECT, C.N.P. PCP - General 03/30/[address] [place] [address] documented as of this encounter
--- OUTSIDE RECORDS SUMMARY | 2022-06-30 08:30 | XMS_ITS | Encounter Summary ---
:1960 Author Organization [facility] Address [address] [place] [address] Care Team Providers Name Role Phone Allyson Resendiz APRN, C.N.P. Primary Care Provider [phone] Reason for Visit Reason Comments Annual Exam Fasting. Wants lipids done t linda. Will do flu shot today. States she does not feel right in the vagina l. No discharge or urgency with urination. Appointment Request (Routine) - Closed Specialty Diagnoses / Procedures Referred By Contact Refer red To Contact Family Medicine Referral ID Status Reason Start Date Expiration Date Visits Requ ested Visits Authorized [id number] Closed 09/05/2018 09/05/2019 1 Encounter Details Date Type Department Care Team Description 09/18/2018 Comprehensive Visit Department of Allyson Resendiz Medical Examination Adult (Primary Dx); Family MedicineHoma APRN, C.N.P. Hypercholesterolemia; [facility], [address] Raynaud's Disease; in [place], [place] Vaginitis; [place] [address] Nodule Thyroid; [facility] [address] [phone] Need Vaccine Immunization In [facility]; [place], [place] (Work) Screening Examination Diabetes Mellitus [phone] Social History Tobacco Use Types Packs/Day [...] or relatives? How often do you attend buddhist or quaker More than 4 time s per year 02/02/2021 services? Do you belong to any clubs or organizations No 02/02/2021 such as buddhist groups, unions, fraternal or athletic groups, or [...] Sign Reading Time Taken Comments Blood Pressure 95/55 09/18/2018 7:51 AM HEAD INSPECTOR AND CENTER MARKER Pulse 76 09/18/2018 7:51 AM HEAD INSPECTOR AND CENTER MARKER Temperature 36.7 ??C (98.1 ??F) 09/18/2018 7:51 AM HEAD INSPECTOR AND CENTER MARKER Respiratory Rate 20 09/18/2018 7:51 AM HEAD INSPECTOR AND CENTER MARKER Oxygen Saturation - - Inhaled Oxygen Concentration - - Weight 81.3 kg (179 lb 2 oz) 09/18/2018 7:51 AM HEAD INSPECTOR AND CENTER MARKER Height 179 cm (5' 10.47) 09/18/2018 7:51 AM HEAD INSPECTOR AND CENTER MARKER Body Mass Index 25.36 09/18/2018 7:51 AM HEAD INSPECTOR AND CENTER MARKER documented in this encounter Patient Instructions AttachmentsThe following attachments cannot be sent through Care Everywhere. Eating to Improve Your Cholesterol and Triglyceride Levels (French)documented in this encounter H&P Notes Allyson Resendiz, ASHIA, C.N.P. - 09/18/2018 8:00 AM CST CHIEF COMPLAINT: Chief Complaint Patient presents with ??? Annual Exam Fasting. Wants lipids done today. Will do flu shot today. States she does not feel right in the vaginal. No discharge or urgency with urination. HISTORY OF PRESENT ILLNESS: Amanda is here for health care maintenance exam. She is fasting for lab. She has hyperlipidemia stable on atorvastatin 20 mg daily without adverse effects. Raynaud's disease is treated with verapamil 180 mg daily. She needs refill. She has mammogram scheduled next week. She would like influenza immunization today. She states she has been having some vaginal irritation for the past 2 weeks. She deniesdischarge, minimal itching. MEDICATIONS: Current Outpatient Prescriptions: ??? atorvastatin (LIPITOR) 20 mg tablet, Take [...] months, Disp: 90 capsule, Rfl: 3 ??? ketoconazole (for_NIZORAL) 2 % shampoo, Apply 1 application topically 2 (two) times a week., Disp: , Rfl: ??? metroNIDAZOLE (for_ROSADAN) 0.75 % gel, Apply 1 application topically every morning., Disp: , Rfl: ??? tretinoin (for_RETIN-A) 0.025 % cream, Apply 1 application topically at bedtime., Disp: , Rfl: ALLERGIES: No Known Allergies REVIEW OF SYSTEMS: GENERAL: No weight gain, no weight loss, no fever in past month, no chills, no sweats, no fatigue EENT: No blurred vision, no double vision, no eye pain, no sinus problems, no hoarseness, no difficulty swallowing, no mouth sores, no diminished hearing, no ringing in ears, no enlarged glands PULMONARY: No shortness of breath, no cough, no wheezing, no sputum, no hemoptysis CARDIAC: No valve problems, no Chest pain, no Chest pressure, no rapid beating, no irregular beating, no dependent edema, pain in calves or with walking, no difficulty moving arms and legs GI: No heartburn, no nausea, no vomiting, no stomach trouble, no constipation, no diarrhea, no blood in BM, no change in BM BREAST: No lumps of breast, no nipple discharge, no pain in breast : No vaginal discharge, no burning/pain with urination, no difficulty starting stream, no difficulty emptying bladder, no excessive urination MUSCULOSKELETAL: No joint pain, no joint swelling, no joint stiffness, no muscle pain, no muscle stiffness, no back pain, no back stiffness SKIN: No skin rashes, no skin sores, no change in moles NEURO: No significant headaches, no slurred speech, no seizures, no dizziness, no loss of consciousness, no memory loss ENDOCRINE: No excessive thirst, no excessive bruising Answers for HPI/ROS submitted by the patient on 09/18/2018 No general issues: Yes No eye issues: Yes No ENT issues: Yes No heart issues: Yes No respiratory issues: Yes No GI issues: Yes No muscle/bone issues: Yes No skin issues: Yes No neurologic issues: Yes No mental health issues: Yes No blood/lymph issues: Yes No urinary/reproductive issues: Yes PAST MEDICAL HISTORY: Past Medical History: Diagnosis Date ??? Acne Rosacea 09/30/2014 ??? Hypercholesterolemia 03/23/2010 ??? Nodule Thyroid 04/28/[address] ??? Raynaud's Disease 03/23/2010 PAST SURGICAL HISTORY: Past Surgical History: Procedure Laterality Date ??? BIOPSY THYROID, PERCUTANEOUS CORE NEEDLE.. 06/12/2015 Negative for malignancy, benign thyroid nodule with degenerative changes. [facility] ??? COLONOSCOPY 06/14/2012 ??? COLONOSCOPY 09/25/2017 KIM/Randall Mallory, Wan miralax prep, quality good. repeat in 5yrs ??? COLPOSCOPY 03/31/2010 ??? LAPAROSCOPIC TOTAL HYSTERECTOMY N/A 07/29/2014 Total laparoscopic hysterectomy ??? REMOVAL OF OVARIAN CYST N/A 03/30/1987 Ovarian cystectomy ??? VARICOSE VEIN STRIPPING N/A 03/30/2006 Varicose vein stripping SOCIAL HISTORY: Social History Substance Use Topics ??? Smoking status: Never Smoker ??? Smokeless tobacco: Never Used ??? Alcohol use Yes Comment: occassionally FAMILY HISTORY: Family History Problem Relation Age of Onset ??? Brain Tumor Mother ??? Hyperlipidemia Mother ??? Skin cancer Father VITALS: Temperature: [36.7 ??C] 36.7 ??C Resp Rate: [20] 20 Blood Pressure: (95)/(55) 95/55 Pulse Rate: [76] 76 LABS and DIAGNOSTICS: Results for orders placed or performed in visit on 09/18/18 Vaginitis Panel - [facility] Result Value Ref Range Dejah species, DNA Negative Negative Gardnerella vaginalis, DNA Negative Negative Trichomonas vaginalis, DNA Negative Negative BMP, TSH, Lipids and AST are pending. PHYSICAL EXAM: GENERAL: In general, the patient is a pleasant female who appears her stated age. SKIN: Without lesion. EYES: PERRLA. EOMI intact. Fundi sharp discs. Conjunctiva and lids normal. ENT: Tympanic membranes clear bilaterally. Nasal mucosa without erythema or congestion. Mouth without erythema or exudate. LYMPH NODES: Neck: Supple without adenopathy, no thyromegaly. Carotid pulses are equal bilaterally. BREASTS: No skin or nipple retraction. No palpable mass. No axillary adenopathy. No nipple discharge. PERIPHERAL VESSELS: Femoral, dorsal, pedal and posterior tibial pulses are equal. HEART: Regular rate and rhythm without murmur. LUNGS: Clear to auscultation, good inspiratory effort. ABDOMEN: Soft, nontender, no palpable mass, no hepatosplenomegaly. GENITALIA: Bartholin, urethra, vagina without lesion. Bimanual examination reveals no masses or tenderness in the uterine or adnexal areas. Vaginitis panel obtained. SPINE: Normal range of motion. No CVA tenderness. JOINTS: Normal range of motion. EXTREMITIES: Warm, dry, no cyanosis or peripheral edema. MENTAL: Alert and oriented times three. NEUROLOGIC: Deep tendon reflexes are +2 and symmetrical. ASSESSMENT/PLAN: #1 General Medical Examination Adult Continue to work on healthy diet and regular exercise program. I will contact her with laboratory results. Return for complete physical exam in one year. #2 Hypercholesterolemia Continue atorvastatin 20 mg daily. Checking fasting lipids and AST today. #3 Raynaud's Disease Verapamil 180 mg 24 hr capsule, 1 daily. Refill provided. #4 Vaginitis Vaginitis panel revealed no evidence for yeast or bacterial infection. Watchful waiting. Recheck if symptoms do not improve. #5 Nodule Thyroid Checking TSH today. #6 Need Vaccine Immunization Influenza Influenza immunization given today. HEALTH MAINTENANCE: Up-to-date. INSPECTOR AND CENTER MARKER documented in this encounter Plan of Treatment Not on filedocumented as of this encounter Procedures Procedure Name Priority Date/Time Associated Diagnosis Comme nts LIPID PANEL, S Routine 09/18/2018 8:54 Hypercholesterolemia Re sults for this AM HEAD INSPECTOR AND CENTER MARKER procedure are i n the results section. ASPARTATE Routine 09/18/2018 8:54 Hypercholesterolemia Resu lts for this AMINOTRANSFERASE (AST), AM HEAD INSPECTOR AND CENTER MARKER proc edure are in S/P the results section. THYROID-STIMULATING Routine 09/18/2018 8:54 Nodule Thyroid Res ults for this HORMONE-SENSITIVE AM HEAD INSPECTOR AND CENTER MARKER procedure are in (S-TSH) the results section. VAGINITIS PANEL Routine 09/18/2018 8:14 Vaginitis Results f or this AM HEAD INSPECTOR AND CENTER MARKER procedure are i n the results section. documented in this encounter Results S-TSH (Thyroid-Stimulating Hormone - Sensitive) (09/18/2018 8:54 AM HEAD INSPECTOR AND CENTER MARKER) athologist Signature TSH, Sensitive 0.8 0.3 - 4.2 09/18/2018 [facility] mIU/L 11:13 AM HEAD INSPECTOR AND CENTER MARKER [facility] Comment: Biotin has been identified by the jill moon as a potential interfering substance. ??Higher concentr ations of biotin may be found in multivitamins, hair/nail supple ments, and workout supplements. ??If the result does not ma tch clinical observations, repeat testing after patient refrains fr om the use of supplements for at least 12 hours. Specimen Anatomical Collection Method Collection Time Receive d Time (Source) Location / / Volume Laterality Blood (Blood, 09/18/2018 8:54 AM 09/18/20 18 Venous) HEAD INSPECTOR AND CENTER MARKER 10:39 AM HEAD INSPECTOR AND CENTER MARKER Allyson Resendiz APRN, C.N.P. LAB BLOOD ADD-ON Performing Organization Address City/State/ZIP Code Phon e Number [facility] [address] [place] [address] LAB AST (Aspartate Aminotransferase) (09/18/2018 8:54 AM HEAD INSPECTOR AND CENTER MARKER) Patholo gist Method Time Signature Aspartate 27 8 - 43 09/18/2018 [facility] Aminotransferase U/L 11:13 AM [facility] [place] [facility] Specimen Anatomical Collection Method Collection Time Receive d Time (Source) Location / / Volume Laterality Blood (Blood, 09/18/2018 8:54 AM 09/18/20 18 Venous) HEAD INSPECTOR AND CENTER MARKER 10:39 AM HEAD INSPECTOR AND CENTER MARKER Allyson Resendiz APRN, C.N.P. LAB BLOOD ADD-ON Performing Organization Address City/State/ZIP Code Phon e Number [facility] [address], [place] [address] LAB (ABNORMAL) Lipid Panel (09/18/2018 8:54 AM HEAD INSPECTOR AND CENTER MARKER) P athologist Signature Cholesterol, 212 (H) mg/dL 09/18/2018 [facility] Total 11:13 AM [facility] [place] [facility] Comment: ----REFERENCE VALUE---- Desirable: < 200 Borderline high: 200 - 239 High: > or = 240 Triglycerides 71 mg/dL 09/18/2018 11:13 AM [facility] [place] [facility] Comment: ----REFERENCE VALUE---- Normal: <150 Borderline high: 150-199 High: 200-499 Very high: > or =500 Cholesterol, HDL, S 82 >=50 mg/dL 09/18/2018 11:13 AM [facility] [place] [facility] Calculated LDL 116 mg/dL 09/18/2018 11:13 AM [facility] [place] [facility] Comment: ----REFERENCE VALUE---- Desirable: <100 Above Desirable: 100-129 Borderline high: 130-159 High: 160-189 Very high: > or =190 Cholesterol, Non-HDL, 130 mg/dL 09/18/2018 11:13 A [facility] [place] B Comment: ----REFERENCE VALUE---- Desirable: <130 Above Desirable: 130-159 Borderline high: 160-189 High: 190-219 Very high: > or =220 Specimen Anatomical Collection Method Collection Time Receive d Time (Source) Location / / Volume Laterality Blood (Blood, 09/18/2018 8:54 AM 09/18/20 18 Venous) HEAD INSPECTOR AND CENTER MARKER 10:39 AM HEAD INSPECTOR AND CENTER MARKER Jose Maria Paz APRNNGertrudis LAB BLOOD ADD-ON Performing Organization Address City/[facility]/ZIP Code Phon [facility] Number [facility] [address], [place] [address] LAB (ABNORMAL) Glucose, Fasting (09/18/2018 8:54 AM HEAD INSPECTOR AND CENTER MARKER) athologist Signature Glucose, 104 (H) 70 - 99 09/18/2018 [facility] Fasting, S mg/dL 11:06 AM [facility] LAB Specimen Anatomical Collection Method Collection Time Receive d Time (Source) Location / / Volume Laterality Blood (Blood, 09/18/2018 8:54 AM 09/18/20 18 Venous) HEAD INSPECTOR AND CENTER MARKER 10:37 AM HEAD INSPECTOR AND CENTER MARKER Michael Paz APRNPKarol LAB BLOOD NON ADD-ON Performing Organization Address City/[facility]/ZIP Code [facility] [address], [place] [address] LAB (ABNORMAL) BMP (Basic Metabolic Panel) (09/18/2018 8:54 AM HEAD INSPECTOR AND CENTER MARKER) athologist Signature Potassium, S 5.6 (H) 3.6 - 5.2 09/18/2018 [facility] mmol/L 11:06 AM [facility] LAB Sodium, S 146 (H) 135 - 145 09/18/2018 [facility] mmol/L 11:06 AM [facility] Chloride, S 107 98 - 107 09/18/2018 [facility] mmol/L 11:06 AM [facility] Bicarbonate, S 31 (H) 22 - 29 09/18/2018 [facility] mmol/L 11:06 AM [facility] Anion Gap 8 7 - 15 09/18/2018 [facility] 11:06 AM [facility] BUN (Blood Urea 14 6 - 21 09/18/2018 [facility] Nitrogen), S mg/dL 11:06 AM [facility] Creatinine 0.78 0.59 - 09/18/2018 [facility] 1.04 mg/dL 11:06 AM [facility] LAB eGFR-Non 85 >=60 09/18/2018 [facility] Black/ mL/min/BSA 11:06 AM [facility] [place] [facility] Comment: ----ADDITIONAL INFORMATION---- Estimated GFR calculated using the 2009 CKD_EPI creatinine equation. eGFR-Black/ >90 >=60 mL/min/BSA 2017 11:06 [facility] AM [facility] [place] [facility] Comment: ----ADDITIONAL INFORMATION---- Estimated GFR calculated using the 2009 CKD_EPI creatinine equation. Calcium, Total, S 10.5 (H) 8.6 - 10.0 mg/dL 09/18/2018 1 1:06 AM [facility] [place] [facility] Glucose, S CANCELED mg/dL 09/18/2018 10:38 AM [facility] [place] [facility] Comment: Test not performed. See Fasting Glucose result. Result canceled by the ancillary Specimen Anatomical Collection Method Collection Time Receive d Time (Source) Location / / Volume Laterality Blood (Blood, 09/18/2018 8:54 AM 09/18/20 Venous) HEAD INSPECTOR AND CENTER MARKER 10:37 AM HEAD INSPECTOR AND CENTER MARKER Allyson Resendiz APRN, C.N.P. LAB BLOOD ADD-ON Performing Organization Address City/State/ZIP Code Phon e Number [facility] [address] [place] [address] LAB Vaginitis Panel - [facility] (09/18/2018 8:14 AM HEAD INSPECTOR AND CENTER MARKER) [facility] gist Method Time Signature Dejah species, Negative Negative 09/18/2018 [facility] DNA 9:30 AM [email or web address] Gardnerella Negative Negative 09/18/2018 [facility] vaginalis, DNA 9:30 AM [facility] [employer] LAB Trichomonas Negative Negative 09/18/2018 [facility] vaginalis, DNA 9:30 AM [facility] Specimen Anatomical Collection Method Collection Time Receive d Time (Source) Location / / Volume Laterality Swab (Vagina) 09/18/2018 8:14 AM 09/18/20 18 8:27 HEAD INSPECTOR AND CENTER MARKER AM HEAD INSPECTOR AND CENTER MARKER Allyson Resendiz APRN, C.N.P. LAB MICROBIOLOGY - GENERAL ORDERABLES Performing Organization Address City/State/ZIP Code Phon e Number [facility]- [address] [address] LAB documented in this encounter Visit Diagnoses Diagnosis General Medical Examination Adult - Prim scarlett Hypercholesterolemia Raynaud's Disease Vaginitis Nodule Thyroid Need Vaccine Immunization Influenza Screening Examination Diabetes Mellitus documented in this encounter Care Teams Cras Relationship Specialty Start Date End Date Allyson Resendiz APRN, C.N.P. PCP - General 03/30/17 [address] [place] [phone] documented as of this encounter
--- OUTSIDE RECORDS SUMMARY | 2022-06-30 08:30 | XMS_ITS | Encounter Summary ---
:1960 Author Organization [facility] Address [address] [place] [address] Care Team Providers Name Role Phone Allyson Resendiz APRN, C.N.P. Primary Care Provider [phone] Encounter Details Date Type Department Care Team Description 08/05/2021 Clinical Communication Department of [facility] [place] Resendiz, Medicine, [place] ASHIA, C.N.PKarol [facility], in [facility] [address] [address] [place], [place] [phone] [phone] (Work) [phone] Social History Tobacco Use Types Packs/Day Years [...] or relatives? How often do you attend roman catholic or taoism More than 4 time s per year 02/02/2021 services? Do you belong to any clubs or organizations No 02/02/2021 such as roman catholic groups, unions, fraternal or athletic groups, or [...] slept in a group home (including now)? Education Answer Date Recorded What is the highest level of school Associate degree: monica patel, 02/02/2021 you have completed or the highest technical, or vocational p dariusz degree you have received? Sex Assigned at Date Recorded Not on file documented as of this encounter Miscellaneous Notes Telephone Encounter - Raegan Trevizo L.PKarolN. - 08/05/2021 1:17 PM CDT [facility] form sent to [facility] for scanning. documented in this encounter Plan of Treatment Not on filedocumented as of this encounter Visit Diagnoses Not on filedocumented in this encounter Care Teams Shade Bander Relationship Specialty Start Date End Date Allyson Resendiz, ASHIA, C.N.P. PCP - General 03/30/17 [address], [place] [address] documented as of this encounter
--- OUTSIDE RECORDS SUMMARY | 2022-06-30 08:30 | XMS_ITS | Encounter Summary ---
:1960 Author Organization [facility] Address [address] [place] [address] Care Team Providers Name Role Phone Allyson Resendiz APRN, C.N.P. Primary Care Provider [phone] Reason for Visit Reason Comments Wound Care right lower leg Encounter Details Date Type Department Care Team Description 01/21/2021 Office Visit Department of [facility], Kimber Infection [facility] V., ASHIA, C.N .P. Postoperative Initial Medicine in [facility] [address] (Primary Dx) [place], [place] [address] [address] [place], [place] [phone] (Work) [phone] Social History Tobacco Use Types Packs/Day Years [...] or relatives? How often do you attend jehovah's witness or cheondoism More than 4 time s per year 02/02/2021 services? Do you belong to any clubs or organizations No 02/02/2021 such as jehovah's witness groups, unions, fraternal or athletic groups, or [...] Sign Reading Time Taken Comments Blood Pressure 108/64 01/21/2021 3:41 PM CDT Pulse 75 01/21/2021 3:41 PM CDT Temperature 37.7 ??C (99.9 ??F) 01/21/2021 3:41 PM states richards ving hot CDT flash Respiratory Rate 18 01/21/2021 3:41 PM CDT Oxygen Saturation - - Inhaled Oxygen - - Concentration Weight - - Height - - Body Mass Index - - documented in this encounter Patient Instructions Patient InstructionsDuntKimber lizarraga APRN, C.N.P. - 01/21/2021 3:30 PM CDT Continue santyl for another week. Return in another week documented in this encounter Progress Notes Kimber Coy APRN, C.N.P. - 01/21/2021 3:30 PM CDT SUBJECTIVE CHIEF COMPLAINT / REASON FOR VISIT Amanda Osorio is a 60 y.o. female who presents for evaluation of Wound Care (right lower leg). HISTORY OF PRESENT ILLNESS Amanda is here for wound care of a surgical excision of a cancerous lesion. The lesion was excised inOctober she had radiation treatments. She had been under the care of [facility]. She feels that the wound is ???moving the right direction ???. The following portions of the patient's history were reviewed and updated as appropriate: allergies,current medications, family history, medical history, social history, surgical history and problem list. OBJECTIVE BP 108/64 (BP Location: Left arm, Patient Position: Sitting, Cuff Size: Regular) Pulse 75 Temp 37.7 ??C (Temporal) Comment: states having hot flash Resp 18 All other systems reviewed and are negative. 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 She got the wound culture results from [facility]. The wound is growing Pseudomonas and Serratia. She also has scattered yeast. She was placed on Cipro 500 twice a day for 7 days. She is also seeing the chiropractor who was doing a laser treatment on her leg to promote blood flowand healing. She states he does not touch the wound at all. She has been using Santyl on the wound daily. She presents today with much less erythema in the leg. The wound measures 2.9 cm by 2 cm and superficial. The wound is mostly slough. There is good granulating buds seen at the lower edge at 5:00 o'clock. There is an area in the middle of the wound where the slough is and the wound bed is beefy red. The wound was cleansed with saline and Hibiclens rinse well and dried. Santyl was applied to the wound bed covered with sterile 2 x 2. Skin prep was applied around the periwound skin and a Telfa islanddressing was applied. The plan is to use Santyl for 1 more week and then convert to a silver dressing. She is wearing compression stockings. She has no edema in the leg. She will return in 1 week. documented in this encounter Miscellaneous Notes Assessment & Plan Note - Kimber Coy APRN, C.N.P. 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 She got the wound culture results from [facility]. The wound is growing Pseudomonas and Serratia. She also has scattered yeast. She was placed on Cipro 500 twice a day for 7 days. She is also seeing the chiropractor who was doing a laser treatment on her leg to promote blood flowand healing. She states he does not touch the wound at all. She has been using Santyl on the wound daily. She presents today with much less erythema in the leg. The wound measures 2.9 cm by 2 cm and superficial. The wound is mostly slough. There is good granulating buds seen at the lower edge at 5:00 o'clock. There is an area in the middle of the wound where the slough is and the wound bed is beefy red. The wound was cleansed with saline and Hibiclens rinse well and dried. Santyl was applied to the wound bed covered with sterile 2 x 2. Skin prep was applied around the periwound skin and a Telfa islanddressing was applied. The plan is to use Santyl for 1 more week and then convert to a silver dressing. She is wearing compression stockings. She has no edema in the leg. She will return in 1 week. documented in this encounter Plan of Treatment Not on filedocumented as of this encounter Visit Diagnoses Diagnosis Infection Wound Postoperative Initial - Primary documented in this encounter Care Teams Bleach Maker Relationship Specialty Start Date End Date Allyson Resendiz APRN, C.N.P. PCP - General 03/30/17 [address] [place] [phone] documented as of this encounter
--- OUTSIDE RECORDS SUMMARY | 2022-06-30 08:30 | XMS_ITS | Encounter Summary ---
:1960 Author Organization [facility] Address [address] [place] [address] Care Team Providers Name Role Phone Allyson Resendiz APRN C.N.P. Primary Care Provider [phone] Encounter Details Date Type Department Care Team Description 02/05/2021 [facility] in [facility] [place], [place] [address] [facility] [address] [place] [phone] (Wo rk) Social History Tobacco Use Types [...] How often do you attend holiness or church More than 4 time s per year [...] to sleep or slept in a senior care (including now)? Education Answer Date Recorded What [...] on filedocumented in this encounter Care Teams Conservation Science Officer Relationship Specialty Start Date End Date Allyson Resendiz, ASHIA, C.N.P. PCP - General 03/30/[address] [place] [phone] documented as of this encounter
--- OUTSIDE RECORDS SUMMARY | 2022-06-30 08:30 | XMS_ITS | Encounter Summary ---
:1960 Author Organization [facility] Address [address] [place] [address] Care Team Providers Name Role Phone Allyson Resendiz APRN, C.N.P. Primary Care Provider [phone] Reason for Visit Reason Comments Follow-up 1 week recheck Appointment Request (Routine) - Closed Specialty Diagnoses / Procedures Referred By Contact Refer red To Contact Community Internal Medicine Referral ID Status Reason Start Date Expiration Date Visits Requ ested Visits Authorized [id number] Closed 01/27/2021 01/27/2022 1 1 Encounter Details Date Type Department Care Team Description 02/03/2021 Office Visit Department of Kimber Coy Infection [facility] V., ASHIA, C.N .P. Postoperative Initial Medicine in [address] [place] [address] (Primary Dx) [address] [address] [place], [place] [phone] (Work) [phone] Social History Tobacco Use Types Packs/Day Years [...] or relatives? How often do you attend scientologist or cheondoism More than 4 time s per year 02/02/2021 services? Do you belong to any clubs or organizations No 02/02/2021 such as scientologist groups, unions, fraternal or athletic groups, or [...] place to sleep or slept in a [facility] (including now)? Education Answer Date Recorded What is the highest level of school Associate degree: monica patel, 02/02/2021 you have completed or the highest technical, or vocational p dariusz degree you have received? Sex Assigned at Date Recorded Not on file documented as of this encounter Last Filed Vital Signs Vital Sign Reading Time Taken Comments Blood Pressure 108/66 02/03/2021 11:33 AM CDT Pulse 73 02/03/2021 11:33 AM CDT Temperature 36.8 ??C (98.2 ??F) 02/03/2021 11:33 AM CDT Respiratory Rate - - Oxygen Saturation - - Inhaled Oxygen Concentration - - Weight - - Height - - Body Mass Index - - documented in this encounter Patient Instructions Patient InstructionsDuntKimber lizarraga APRN, C.N.P. - 02/03/2021 11:00 AM CDT Wound culture done. Stop the Santyl. Change the dressing every other day. Apply a thin layer of Mupirocin to the silver and apply to the wound Use skin prep and telfa island dressing documented in this encounter Progress Notes Kimber Coy APRN, C.N.P. - 02/03/2021 11:00 AM CDT SUBJECTIVE CHIEF COMPLAINT / REASON FOR VISIT Amanda Osorio is a 60 y.o. female who presents for evaluation of Follow-up (1 week recheck). 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 The following portions of the patient's history were reviewed and updated as appropriate: allergies,medication, past medical history, past surgical history, social history and family history. OBJECTIVE BP 108/66 (BP Location: Left arm, Patient Position: Sitting, Cuff Size: Regular) Pulse 73 Temp 36.8 ??C (Temporal) REVIEW OF SYSTEMS All other systems reviewed and are negative. PHYSICAL EXAM General: She is well groomed and in no acute distress Skin: See assessment and plan below ASSESSMENT / PLAN #1 Infection Wound Postoperative Initial Assessment & Plan: The wound on her right into mid shaft area from excision for a cancer is healing. She still has erythema in the periwound skin. She visits a chiropractor twice a week who does laser treatments. She states the purposes to increase blood flow to the leg. I asked her to inquire of the chiropractor if it could leave residual redness. The wound measures 2.1 cm x 1.9 cm there is marked epithelialization on the lateral upper edge of the wound from 9-12 on a clock face. The rest of the wound has slough with buds of granulation. The wound was cleansed with saline and dried and wound culture was obtained. This is a follow-up wound culture. The wound culture was also done because of the erythema. The was cleansed with saline and Hibiclens rinse well with saline and dried. KerraCel AG was appliedwith a thin layer of me pie rescind. Skin prep was applied around the periwound skin and Telfa island dressing was applied. She will do every other dressing changes and return in 2 weeks for ongoing wound care Orders: - Bacterial Culture, Aerobic + Susc documented in this encounter Miscellaneous Notes Assessment & Plan Note - Kimber Coy APRN, C.N.P. - 02/03/2021 4:02 PM CDT Associated Problem(s): Infection Wound Postoperative Subsequent The wound on her right into mid shaft area from excision for a cancer is healing. She still has erythema in the periwound skin. She visits a chiropractor twice a week who does laser treatments. She states the purposes to increase blood flow to the leg. I asked her to inquire of the chiropractor if it could leave residual redness. The wound measures 2.1 cm x 1.9 cm there is marked epithelialization on the lateral upper edge of the wound from 9-12 on a clock face. The rest of the wound has slough with buds of granulation. The wound was cleansed with saline and dried and wound culture was obtained. This is a follow-up wound culture. The wound culture was also done because of the erythema. The was cleansed with saline and Hibiclens rinse well with saline and dried. KerraCel AG was appliedwith a thin layer of me pie rescind. Skin prep was applied around the periwound skin and Telfa island dressing was applied. She will do every other dressing changes and return in 2 weeks for ongoing wound care documented in this encounter Plan of Treatment Not on filedocumented as of this encounter Procedures Procedure Name Priority Date/Time Associated Diagnosis Comme nts BACTERIAL CULTURE, Routine 02/03/2021 12:18 Infection Wound Re sults for this AEROBIC + SUSC PM CDT Postoperative Initial proc edure are in the results section. documented in this encounter Results (ABNORMAL) Bacterial Culture, Aerobic + Susc (02/03/2021 12:18 PM CDT) [facility] gist Method Time Signature Bacterial PSEUDOMONAS AERUGINOSA 02/05/2021 MK[facility] Culture, 2+ 8:10 AM CDT Aerobic + (A) Susc Specimen Anatomical Collection Method Collection Time Receive d Time (Source) Location / / Volume Laterality Skin (Leg, [place] 02/03/2021 12:18 02/04/20 6:56 Right) PM CDT PM CDT Comment: Specimen Source Site: Skin Organism Antibiotic Method Susceptibility Pseudomonas aeruginosa Piperacillin + SUSCEPTIBILITY, 8 mcg/mL: Susceptible Tazobactam RICK (MCG/ML) Pseudomonas aeruginosa Ceftazidime SUSCEPTIBILITY, 4 mcg/mL: Susceptible RICK (MCG/ML) Pseudomonas aeruginosa Cefepime SUSCEPTIBILITY, 4 mcg/mL: Susceptible RICK (MCG/ML) Pseudomonas aeruginosa Meropenem SUSCEPTIBILITY, 1 mcg/mL: Susceptible RICK (MCG/ML) Pseudomonas aeruginosa Gentamicin SUSCEPTIBILITY, 4 mcg/mL: Susceptible RICK (MCG/ML) Pseudomonas aeruginosa Tobramycin SUSCEPTIBILITY, <=1 mcg/m L: Susceptible RICK (MCG/ML) Pseudomonas aeruginosa Levofloxacin SUSCEPTIBILITY, 4 mcg/mL: Resistant RICK (MCG/ML) Jose Maria Pham APRNN.P. LAB MICROBIOLOGY - GENERA L ORDERABLES Performing Organization Address City/State/ZIP Code Phon e Number [facility]- [address] [place] [phone] [place] [address] [place] [address] System in [address] documented in this encounter Visit Diagnoses Diagnosis Infection Wound Postoperative Initial - Primary documented in this encounter Care Teams Potato Loader Relationship Specialty Start Date End Date Allyson Resendiz APRN, C.N.P. PCP - General 03/30/17 [address] [place] [phone] documented as of this encounter
--- OUTSIDE RECORDS SUMMARY | 2022-06-30 08:30 | XMS_ITS | Encounter Summary ---
:1960 Author Organization [facility] Address [address] [place] [address] Care Team Providers Name Role Phone Allyson Resendiz APRN, C.N.P. Primary Care Provider [phone] Reason for Visit Reason Comments Results Encounter Details Date Type Department Care Team Description 02/05/2021 Clinical Communication Department of Kimber Coy V., Results [facility] Internal ASHIA, C.N.P. Medicine in [address] [address] [place], [place] [phone] (Work) [phone] Social History Tobacco Use Types Packs/Day Years [...] or relatives? How often do you attend christian or church More than 4 time s per year 02/02/2021 services? Do you belong to any clubs or organizations No 02/02/2021 such as christian groups, unions, fraternal or athletic groups, or [...] this encounter Miscellaneous Notes Telephone Encounter - Mona Warner C.M.A. - 02/05/2021 9:49 AM CDT SUBJECTIVE CHIEF COMPLAINT / REASON FOR CALL Results Information Discussed The patient called the clinic. She was informed of the information as below, per Kimber. She is extremely grateful that Kimber cultured the wound and she is very happy to have found a provider that will take care of her. 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 PLAN Disposition/Recommendation: antibiotics Information/Education: patient/caller able to teach back Caller agreeable to plan of care: yes The following references were used: provider Kimber Coy CNP Telephone Encounter - Mona Warner C.M.A. - 02/05/2021 9:39 AM CDT Images from the original note were not included. Left message for patient to return call to clinic. Does the patient need to speak to nursing? yes Action needed: please inform patient of the following Kimber Coy APRN, C.N.P. 02/05/2021 ??9:15 AM CDT Please call the patient regarding her abnormal result. She still has pseudomonas in her wound. Please tell her to stop the Cipro if she is still taking it. I have ordered Cefdinir 300 mg every 12 hoursfor 10 days. ?? documented in this encounter Plan of Treatment Not on filedocumented as of this encounter Visit Diagnoses Not on filedocumented in this encounter Care Teams Bridge Engineer Relationship Specialty Start Date End Date Allyson Resendiz, AHSIA, C.N.P. PCP - General 03/30/17 [address] [place] [phone] documented as of this encounter
--- OUTSIDE RECORDS SUMMARY | 2022-06-30 08:31 | XMS_ITS | Encounter Summary ---
:1960 Author Organization [facility] Address [address] [place] [address] Care Team Providers Name Role Phone Allyson Resendiz APRN, C.N.P. Primary Care Provider [phone] Encounter Details Date Type Department Care Team Description 09/29/2017 Abstract Department of Family Medicine, Provider, Historical [facility], in [place], [place] [address] [place] [address] Social History Tobacco Use Types Packs/Day Years [...] or relatives? How often do you attend presybeterian or samaritan More than 4 time s per year 02/02/2021 services? Do you belong to any clubs or organizations No 02/02/2021 such as presybeterian groups, unions, fraternal or athletic groups, or [...] place to sleep or slept in a correction (including now)? Sex Assigned at Date Recorded Not on file documented as of this encounter Plan of Treatment Not on filedocumented as of this encounter Visit Diagnoses Not on filedocumented in this encounter Care Teams Bead Wire Insulator Relationship Specialty Start Date End Date Allyson Resendiz, ASHIA, C.N.P. PCP - General 03/30/[address] [place] [phone] documented as of this encounter
--- OUTSIDE RECORDS SUMMARY | 2022-06-30 08:31 | XMS_ITS | Encounter Summary ---
:1960 Author Organization [facility] Address [address] [place] [address] Care Team Providers Name Role Phone Unavailable Primary Care Provider Unavailable Encounter Details Date Type Department Care Team Description 10/02/2015 Hospital Encounter HX [facility] Felix Santos, Alejandra DE LA GARZA, C.N.P. [address] [place], [place] [address] (Wo rk) Social History Tobacco Use Types Packs/Day Years Used Date Smoking Tobacco: Never Assessed Alcohol Habits Answer Date Recorded How often do you have a drink containing alcohol? Never 02/02/2021 How many drinks containing alcohol do you have on a typical Not asked day when you are drinking? How often do you have six or more drinks on one occasion? No t asked Comment: Not asked Social Isolation Answer Date Recorded In a typical week, how many times do you Patient refused 02/02/2021 talk on the phone with family, friends, or neighbors? How often do you get together with friends Patient refused 02/02/2021 or relatives? How often do you attend shinto or yazidism More than 4 time s per year 02/02/2021 services? Do you belong to any clubs or organizations No 02/02/2021 such as shinto groups, unions, fraternal or athletic groups, or [...] place to sleep or slept in a usp (including now)? Sex Assigned at Date Recorded Not on file documented as of this encounter Last Filed Vital Signs Vital Sign Reading Time Taken Comments Blood Pressure - - Pulse - - Temperature - - Respiratory Rate - - Oxygen Saturation - - Inhaled Oxygen Concentration - - Weight - - Height 178 cm (5' 10.08) 10/02/2015 8:26 AM MANAGER REGULATORY Body Mass Index - - documented in this encounter Medications at Time of Discharge Medication Sig Dispensed Refills Start Date End Date B complex-vitamins (B Take 1 tablet by 0 07/09/20 14 COMPLEX 1) tablet mouth daily. calcium Take 1 tablet by 0 04/04/2012 carbonate-vitamin D3 mouth daily. (CALCIUM 600 + D,3,) 600 mg calcium- 200 unit capsule FSH/FLX/PRIM/CUR/BOR/OM3 Take 1 capsule by 0 /05/2014 ,6,9 5 (OMEGA 3-6-9 mouth daily. FATTY ACIDS ORAL) ckqequqtxyxa-Ck-adwq-min Take 1 tablet by 0 01/14 erals tablet mouth daily. UNABLE TO FIND daily. Amberen 0 09/30/2013 ketoconazole Apply 1 application 0 09/30/2014 (for_NIZORAL) 2 % topically 2 (two) shampoo times a week. metroNIDAZOLE Apply 1 application 0 09/30/2014 (for_ROSADAN) 0.75 % gel topically every morning. documented as of this encounter Miscellaneous Notes Telephone Encounter - Conversion, Historical Provider Ser - 09/27/2016 11:29 AM CST *Phone Message Document Contains Addenda Addendum by WHITNEY ZABALA LPN on September 27, 2016 13:04:09 MANAGER REGULATORY Caller is: ( _X) Patient ( _ ) Parent ( _ ) Spouse ( _ ) Child ( ) Other: _ Call back telephone number: _ Reason for Call: -Contacted Yamel and questions answered. Transferred to scheduling to reschedule lab appointment Chief Complaint: _ Disposition of Call/Coordination of Care: ( _ ) Recommend immediate attention call 911 ( _ ) Report to nearest Emergency Department ( _ ) Recommend patient does not drive to the Emergency Department ( _ ) Recommend patient/caller schedule an appointment ( _ ) Transfer patient/caller to the appointment desk ( _ ) Notified Provider _ ( _ ) Awaiting provider recommendations ( _ ) Referral to services or providers: _ ( _ ) Self-care appropriate at this time: _ Patient/Caller response to Education/Information given: ( _ ) Verbalizes understanding of instructions ( _ ) Provide intervention per provider instruction ( _ ) Reinforce information already given ( _ ) Reinforce Plan of Care ( _ ) Provide preprinted information by mail (if applicable) Patient/Caller response to follow the plan of care: ( _ ) Willing and able to follow recommendation (Plan of Care). ( _ ) Not able to follow recommendations. Enter the recommended level of care and patients response to the recommendation: Source/References used (if applicable): _ OK to leave message on voice mail? _ OK to send message via patient portal? _ Patient told to expect return call: ( _ ) today ( _ ) tomorrow ( _ ) next work day Callers preferred language: _ Was an money order clerk used for this call? _ Other ( --_ ) From: CASSANDRA RILEY ([facility] 2W Nurse) To: NORMAN Santos Nurse; Sent: 09/27/2016 11:29:06 MANAGER REGULATORY Subject: *Phone Message Caller is: ( x ) Patient ( ) Mother ( ) Father ( ) Spouse ( ) Daughter ( ) Son ( ) Pharmacy ( ) Other: Physician: Patient MRN #: Reason for Call: Message: Patient would like a call about getting some lab work. She can be reached at [phone] Advice/Action: Source used: ( ) Verbalizes understanding of instructions ( ) Instructed to call back if symptoms worsen or do not resolve ( ) Refused to see provider ( ) Appointment Scheduled ( ) OK to leave message on voice mail ( ) Patient told to expect return call: ( ) today ( ) tomorrow ( ) next work day ( ) Patient's email ( ) Patient told physician out of office, will call upon return call on ( ) ( ) Patient told physician out of office, routed to other physician ( ) Other ( ) Call back telephone number ( ) Call back cell phone number ( ) Source: [facility] POWERCHART Document Id: [id number] Miscellaneous - Felix Santos APRN, C.N.P. - 10/05/2015 8:31 AM CST From: FELIX SANTOS EXECUTIVE COMMUNICATIONS MANAGER To: FOZIAYAMEL RHONDA Sent: 10/05/2015 08:31:43 MANAGER REGULATORY Yamel, Labs are all normal. Felix Results: Date Result Name Ind Value Ref Range 10/02/2015 08:44 Sodium Lvl 141 mmol/L (135 - 145) 10/02/2015 08:44 Potassium Lvl 4.3 mmol/L (3.6 - 5.2) 10/02/2015 08:44 Chloride 102 mmol/L (98 - 107) 10/02/2015 08:44 CO2 (H) 30 mmol/L (22 - 29) 10/02/2015 08:44 AGAP 9 mmol/L (7 - 15) 10/02/2015 08:44 Glucose Fasting (H) 101 mg/dL (70 - 99) 10/02/2015 08:44 Creatinine 0.9 mg/dL (0.6 - 1.1) 10/02/2015 08:44 EGFR (MDRD) >60 mL/min/1.73m2 (>=60 - ) 10/02/2015 08:44 EGFR (MDRD) >60 mL/min/1.73m2 (>=60 - ) 10/02/2015 08:44 BUN 14 mg/dL (6 - 21) 10/02/2015 08:44 Calcium Lvl 10.1 mg/dL (8.0 - 10.3) 10/02/2015 08:44 AST 27 unit/L (8 - 43) 10/02/2015 08:44 Cholesterol 194 mg/dL ( - <=199) 10/02/2015 08:44 Trig 70 mg/dL ( - <=149) 10/02/2015 08:44 HDL 77 mg/dL (>=50 - ) 10/02/2015 08:44 LDL Calculated 103 mg/dL ( - <=129) 10/02/2015 08:44 Chol/HDL Ratio 2.52 10/02/2015 08:44 LDL/HDL 1 10/02/2015 08:44 TSH 0.65 mIU/L (0.27 - 4.20) 10/02/2015 08:44 Hgb 12.3 g/dL (12.0 - 15.5) 10/02/2015 08:44 Hct 38.6 % (34.9 - 44.5) 10/02/2015 08:44 WBC 4.2 x10(9)/L (3.4 - 10.5) 10/02/2015 08:44 RBC 4.17 x10(12)/L (3.90 - 5.03) 10/02/2015 08:44 MCV 92.6 fL (82.0 - 98.0) 10/02/2015 08:44 RDW 13.3 % (11.9 - 15.5) 10/02/2015 08:44 Platelet 152 x10(9)/L (150 - 450) 10/02/2015 08:44 HCV Ab [facility] Negative (Negative - ) Source: [facility] POWERCHART Document Id: [id number] Electronically signed by Conversion, [facility] [employer] Conduit Installer [id number] at 03/13/2017 10:32 AM CDT documented in this encounter Plan of Treatment Not on filedocumented as of this encounter Procedures Procedure Name Priority Date/Time Associated Comments Diagnosis LIPID PANEL, S Routine 10/02/2015 8:44 Results fo r this AM MANAGER REGULATORY procedure are i n the results section. CBC WITHOUT Routine 10/02/2015 8:44 Results for this DIFFERENTIAL, B AM MANAGER REGULATORY procedure ar e in the results section. ASPARTATE Routine 10/02/2015 8:44 Results for this AMINOTRANSFERASE (AST), AM MANAGER REGULATORY proc edure are in S/P the results section. THYROID-STIMULATING Routine 10/02/2015 8:44 Resul ts for this HORMONE-SENSITIVE AM MANAGER REGULATORY procedure are in (S-TSH) the results section. BASIC METABOLIC PANEL, Routine 10/02/2015 8:44 Re sults for this S/P AM MANAGER REGULATORY procedure are i n the results section. documented in this encounter Results CBC without Differential (10/02/2015 8:44 AM MANAGER REGULATORY) P athologist Signature Leukocytes 4.2 3.4 - 10.5 POWERCHART X109L Erythrocytes 4.17 3.90 - 5.03 POWERCHART [id number] Hemoglobin 12.3 12.0 - 15.5 POWERCHART GDL Hematocrit 38.6 34.9 - 44.5 POWERCHART MCV 92.6 82.0 - 98.0 POWERCHART FL Platelet Count 152 150 - 450 POWERCHART X109L HX RDW 13.3 11.9 - 15.5 POWERCHART Specimen (Source) Anatomical Collection Method Collection Time Re ceived Time Location / / Volume Laterality Blood 10/02/2015 8:44 AM MANAGER REGULATORY Felix Luther Astrid ANG, C.N.P. LAB BLOOD ADD-ON Performing Organization Address City/State/ZIP Code Phon e Number POWERCHART Thyroid-Stimulating Hormone-Sensitive (s-TSH) (10/02/2015 8:44 AM MANAGER REGULATORY) athologist Signature TSH 0.65 0.27 - 4.20 POWERCHART (Thyrotropin) MIUL Specimen (Source) Anatomical Collection Method Collection Time Re ceived Time Location / / Volume Laterality Blood 10/02/2015 8:44 AM MANAGER REGULATORY Felix Jimenezzion ANG, C.N.P. LAB BLOOD ADD-ON Performing Organization Address City/State/ZIP Code Phon e Number POWERCHART Lipid Panel (10/02/2015 8:44 AM MANAGER REGULATORY) athologist Signature Calculated LDL 103 <=129 MGDL POWERCHART Comment: 2014 National Lipid Association recommen dations for LDL-C in adults ages 18 and up: Desirable <100 mg/dL Above desirable 100-129 mg/dL Borderline high 130-159 mg/dL High 160-189 mg/dL Very High 190 mg/dL 2014 National Lipid Association recommen dations for LDL-C in children ages 2 to 17. Acceptable <110 mg/dL Borderline High 110-129mg/dL High 130 mg/dL LDL-C >190mg/dL: The markedly elevated LDL level is suggestive of a genetic condition such as familial hypercholesterolemia(FH) or familial defective apolipoprotein B-100 (FDB). Molecular genetic t esting for FH and FDB is available throu [facility]: FH/ADH Genetic Reflex Gonzalez el (test ADHP). Acquired (non-genetic) causes of markedly increased LDL cholesterol include cholestatic liver disease due to the presence of LpX. If a genetic form of hypercholesterolemia is suspected, family studies including biochemical testing fo r lipids (total cholesterol,triglycerides, LDL cholesterol and HDL cholesterol) are recommended. ??Please contact the laboratory at or the on-line test catalog at [facility] for information about how to order these milton ts or to speak with a genetic counselor. Further interpretation would require clinical information. Total Cholesterol/HDL Ratio 2.52 PO WERCHART Cholesterol, Total 194 <=199 MGDL POWERCHART Comment: 2013 National Lipid Association recommen dations for Total Cholesterol in adults ages 18 and up: Desirable <200 mg/dL Borderline high 200-239 mg/dL High 240 mg/dL 2014 National Lipid Association recommen dations for Total Cholesterol in children ages 2 to 17. Acceptable <170 mg/dL Borderline High 170-199 mg/dL High 200 mg/dL HX HDL 77 >=50 MGDL POWERCHART Comment: 2013 National Lipid Association recommen dations for HDL-C in adults ages 18 and up: Low <40 mg/dL (Men) Low <50 mg/dL (Women) 2014 National Lipid Association recommen dations for HDL-C in children ages 2 to 17. Low <40 mg/dL Borderline Low 40-45 mg/dL Acceptable >45 mg/dL Triglycerides 70 <=149 MGDL POWERCHART Comment: 2013 National Lipid Association recommen dations for Triglycerides in adults ages 18 and up: Normal <150 mg/dL Borderline High 150-199 mg/dL High 200-499 mg/dL Very High 500 mg/dL 2014 National Lipid Association recommen dations for Triglycerides in children ages 2 to 9. Acceptable <75 mg/dL Borderline High 75-99 mg/dL High 100 mg/dL 2014 National Lipid Association recommen dations for Triglycerides in children ages 10 to 17. Acceptable <90 mg/dL Borderline High 90-129 mg/dL High 130 mg/dL Trigs >400mg/dL: Triglycerides >400 mg/ dL. Calculated LDL cholesterol is not valid. Non-HDL cholesterol may be used for risk assessment when triglycerides are >400mg/dL. HXLDL/HDL 1 POWERCHART Specimen (Source) Anatomical Collection Method Collection Time Re ceived Time Location / / Volume Laterality Blood 10/02/2015 8:44 AM MANAGER REGULATORY Felix Santos APRN, C.N.P. LAB BLOOD ADD-ON Performing Organization Address City/State/ZIP Code Phon e Number POWERCHART (ABNORMAL) BMP (Basic Metabolic Panel) (10/02/2015 8:44 AM MANAGER REGULATORY) P athologist Signature Anion Gap 9 7 - 15 POWERCHART MMOLL BUN (Blood Urea 14 6 - 21 POWERCHART Nitrogen), S MGDL Chloride, S 102 98 - 107 POWERCHART MMOLL CO2 Total 30 (H) 22 - 29 POWERCHART MMOLL Creatinine 0.9 0.6 - 1.1 POWERCHART MGDL Glucose, 101 (H) 70 - 99 POWERCHART Fasting, S MGDL Calcium, Total, 10.1 8.0 - 10.3 POWERCHART S MGDL Sodium, S 141 135 - 145 POWERCHART MMOLL Potassium, S 4.3 3.6 - 5.2 POWERCHART MMOLL HXeGFR (MDRD) >60 >=60 POWERCHART [id number] eGFR >60 >=60 POWERCHART Black/ [id number] Haitian Specimen (Source) Anatomical Collection Method Collection Time Re ceived Time Location / / Volume Laterality Blood 10/02/2015 8:44 AM MANAGER REGULATORY Felix Santos APRN, C.N.P. LAB BLOOD ADD-ON Performing Organization Address City/State/ZIP Code Phon e Number POWERCHART AST (Aspartate Aminotransferase) (10/02/2015 8:44 AM MANAGER REGULATORY) Patholo gist Method Time Signature Aspartate 27 8 - 43 POWERCHART Aminotransferase UNITL (AST), S Specimen (Source) Anatomical Collection Method Collection Time Re ceived Time Location / / Volume Laterality Blood 10/02/2015 8:44 AM MANAGER REGULATORY Felix Santos APRN, C.N.P. LAB BLOOD ADD-ON Performing Organization Address City/State/ZIP Code Phon e Number POWERCHART documented in this encounter Visit Diagnoses Not on filedocumented in this encounter Additional Health Concerns Assessment Noted Time PHQ-9 Depression Total Score: 3 09/15/2015 10:56 AM CS T documented as of this encounter
--- OUTSIDE RECORDS SUMMARY | 2022-06-30 08:31 | XMS_ITS | Encounter Summary ---
:1960 Author Organization [facility] Address [address] [place] [address] Care Team Providers Name Role Phone Allyson Resendiz APRN, C.N.P. Primary Care Provider [phone] Encounter Details Date Type Department Care Team Description 09/19/2017 Orders Only Department of Family Allyson Resendiz APR N, Medicine, [facility], C.N. P. in [facility] [address] [address] [place], [place] [phone] Social History Tobacco Use Types Packs/Day Years [...] or relatives? How often do you attend yazidism or islam More than 4 time s per year 02/02/2021 services? Do you belong to any clubs or organizations No 02/02/2021 such as yazidism groups, unions, fraternal or athletic groups, or [...] on filedocumented in this encounter Care Teams Ribbon Hand Relationship Specialty Start Date End Date Allyson Resendiz, ASHIA, C.N.P. PCP - General 03/30/[address] [address] documented as of this encounter
--- OUTSIDE RECORDS SUMMARY | 2022-06-30 08:31 | XMS_ITS | Encounter Summary ---
:1960 Author Organization [facility] Address [address] [place] [address] Care Team Providers Name Role Phone Unavailable Primary Care Provider Unavailable Encounter Details Date Type Department Care Team Description 02/03/2016 Hospital Encounter HX [facility] MyrRula donovan, MIXER BLENDER, C.N.P. [address] [place] [address] (Wo rk) Social History Tobacco Use Types [...] How often do you attend bahai or anglican More than 4 time s [...] Sign Reading Time Taken Comments Blood Pressure 102/58 02/03/2016 7:57 AM CDT Pulse 68 02/03/2016 7:57 AM CDT Temperature - - Respiratory Rate 12 02/03/2016 7:57 AM CDT Oxygen Saturation - - Inhaled Oxygen Concentration - - Weight 80.5 kg (177 lb 7.5 oz) 02/03/2016 7:57 AM CDT Height 177 cm (5' 9.69) 02/03/2016 7:57 AM CDT Body Mass Index 25.7 02/03/2016 7:57 AM CDT documented in this encounter Medications at Time of Discharge Medication Sig Dispensed Refills Start Date End Date B complex-vitamins (B Take 1 tablet by 0 07/09/20 14 COMPLEX 1) tablet mouth daily. calcium Take 1 tablet by 0 04/04/2012 carbonate-vitamin D3 mouth daily. (CALCIUM 600 + D,3,) 600 mg calcium- 200 unit capsule FSH/FLX/PRIM/CUR/BOR/OM3 Take 1 capsule by 0 05/2014 ,6,9 5 (OMEGA 3-6-9 mouth daily. FATTY ACIDS ORAL) rwplpdtxflxk-Xg-xcxy-min Take 1 tablet by 0 01/14 erals tablet mouth daily. UNABLE TO FIND daily. Amberen 0 09/30/2013 ketoconazole Apply 1 application 0 09/30/2014 (for_NIZORAL) 2 % topically 2 (two) shampoo times a week. metroNIDAZOLE Apply 1 application 0 09/30/2014 (for_ROSADAN) 0.75 % gel topically every morning. tretinoin (for_RETIN-A) Apply 1 application 0 04/05/2019 0.025 % cream topically at bedtime. documented as of this encounter Progress Notes Felix Santos, ASHIA, C.N.P. - 02/03/2016 8:25 AM CDT Clinic Full Note CHIEF COMPLAINT/REASON FOR VISIT Needs refills of tretinion cream. Has what she thought was a boil on right side of abdomen. Drained. Still red. Recently tested for food allergy. Wants test done because she is not feeling well. HISTORY OF PRESENT ILLNESS Amanda states she developed a sore on her right mid abdomen 3 weeks ago. It got progressively biggerand more painful. She could tell there was pus in it so she opened it with a sterile pin. She removed a significant amount of purulent drainage. It has improved over the past 2 weeks. There is still anarea of scab and induration with minimal redness. She thought she should have it checked. She has acne rosacea. She saw Dr. John in April and has been using metronidazole topical gel with good results. She would like a refill. She has been seeing a chiropractor who recently told her she has food sensitivities based on muscletesting he did. She has a list of labs she is wondering if she should have checked. Reviewing the list we agreed to check a CBC and Sedimentation rate today. She had normal TSH and BMP in September 2015. MEDICATIONS atorvastatin 20 mg oral tablet, 20 mg, 1 tab(s), PO, Bedtime, 3 refills B-Complex 50, 1 tab(s), PO, Daily Calcium 600+D, 1 tab(s), PO, 2xDay Fish Oil 1000 mg oral capsule, 1,000 mg, 1 cap(s), PO, Daily ketoconazole 2% topical shampoo, 1 wayne, Topical, 2xWeek, 3 refills metronidazole 0.75% topical gel, 1 wayne, cheeks, nose folds, and chin 2x daily, Topical, Daily AM, 3refills Misc Prescription, amberen, Daily tretinoin 0.025% topical cream, 1 wayne, forehead, Topical, Bedtime, 5 refills verapamil 180 mg/24 hours oral capsule, extended release, 180 mg, 1 cap(s), for Reynaud's disease, PO, Daily, 3 refills ALLERGIES NKA PAST MEDICAL HISTORY Chronic Acne Rosacea Dermatitis Seborrheic NOS Hypercholesterolemia Hyperplasia Complex Endometrial Without Atypia Lesion Skin Leg Menorrhagia moderately atypical mole left lower leg- Mood disorder NOS. Nodule Lung Nodule Thyroid NOS Perimenopausal Raynaud's disease Sun Damaged Skin Varicose veins Historical Abnormal Pap smear of cervix with low-grade squamous intraepithelial lesion Raynaud's Phenomena Without Gangrene PROCEDURES/SURGICAL HISTORY Total laparoscopic hysterectomy (07/29/2014), CT scan (04/24/2014), Colonoscopy, flexible, proximal to splenic flexure; diagnostic, with or without collection of specimen(s) by brushing or washing, with or without colon decompression (separate procedure).. (06/14/2012), Colposcopy of the entire vagina, with cervix if present;.. (03/31/2010), Cytopathology, cervical or vaginal (any reporting system), collected in preservative fluid, automated thin layer preparation; manual screening under physician supervision.. (03/23/2010), Screening mammography, bilateral (2-view film study of each breast).. (03/23/2010), Skin cancer (01/28/2010), Lipid panel This panel must include the following: Cholesterol, serum, total (78213) Lipoprotein, direct measurement, high density cholesterol (HDL cholesterol) (45027) Triglycerides (60478). (01/15/2010), Varicose vein stripping (03/30/2006), Ovarian cystectomy (03/30/1987). SOCIAL HISTORY Date Time: 02/03/2016 07:57 Tobacco: Smoking Status: Never smoker Exposure: Other: Never Alcohol: Use: No Results Found Recreational Drugs: Use: None Type: No Results Found FAMILY HISTORY Mother ( at 69 year(s)):Positive: Brain tumor; Hyperlipidemia Father:Positive: Skin cancer Sister: Negative: Brother: Negative: Sister: Negative: Brother: Negative: HEALTH MAINTENANCE Up to date. SYSTEMS REVIEW Positive for that mentioned in the History of Present Illness and Past Medical History. All other systems were reviewed and were negative. VITAL SIGNS T: 37.3 ??C (Core) HR: 68 RR: 12 BP: 102 / 58 HT: 177 cm WT: 80.5 kg BMI: 25.7 PHYSICAL EXAMINATION GENERAL: Well-developed, well-nourished, in no acute distress. SKIN: Warm and dry. HEENT: TMs clear. Throat clear. NECK: Supple. No lymphadenopathy or thyromegaly. HEART: Regular rate and rhythm. S1, S2. No murmur. LUNGS: Clear to auscultation. No wheezes or rales. ABDOMEN: Soft, nontender. No hepatosplenomegaly. EXTREMITIES: Warm, dry. No peripheral edema. LAB RESULTS CBC and Sedimentation rate are pending. IMPRESSION/REPORT/PLAN Abscess Abdominal Wall Improving, at this point I do not think an antibiotic is indicated. The abscess is healing following I&D. Warm packs may still be helpful. Continue to observe and recheck if any signs of infectionreturning. Ordered: CBC (includes Auto Differential) OV Est Pt Level 4 - 90807 - 25 min Acne Rosacea Stable on metronidazole topical gel. Refill provided. She will be following up with Dr. John again in April. She can discuss further food sensitivity testing with her at that time. Ordered: OV Est Pt Level 4 - 96731 - 25 min Sedimentation Rate Orders: tretinoin topical, 1 wayne, Topical, Bedtime, wash hands before applying, # 30 gm, 5 Refill(s), Maintenance, Pharmacy: [facility] Electronically Signed By: FELIX SANTOS APRN, CNP On: 02/03/2016 08:35 AM Source: [facility] POWERCHART Document Id: [id number] documented in this encounter Nursing Notes Felix Santos APRN, C.N.P. - 02/03/2016 8:20 AM CDT Ambulatory Patient Education The following Patient Education Materials have been given to the patient: Patient Education Materials: Dermatology (Common Skin Disorders) Treating Rosacea Dermatology (Common Skin Disorders) Treating Rosacea There is no cure for rosacea, but it can be controlled in most cases, particularly with but medical treatment to manage your symptoms. Your health care provider may prescribe one or more topical treatments to apply to your skin daily. You may also be given oral medications (taken by mouth) if you havemore severe rosacea symptoms. To relieve rosacea eye symptoms, you may need prescription eyedrops. Avoid things that can easily cause your rosacea to flare, such as spicy foods, alcohol, getting embarrassed, and going from a cold environment to a warm environment. Surgery can be done to correct the more severe forms of scarring rosacea of the nose, called rhinophyma (when redness and swelling causes the nose to enlarge). Your Role in Medical Treatment How well your treatment works depends partly on you. Follow your health care providers treatment plan. Rosacea symptoms often get better with medications. But they tend to worsen again if medications are stopped. If your symptoms persist or worsen, ask about other treatment options, including combinations of treatments. Rosacea Self-Care Besides sticking with your treatment plan, follow these tips to care for your skin: ?? Wash your face twice a day with a gentle facial cleanser. Rinse your skin well with warm (not hot) water. Pat your skin dry with a cotton towel. ?? Dont scrub your skin or use sponges, brushes, or other abrasive tools. Doing so can irritate yourskin. ?? Avoid harsh scrubs or astringents. These products can irritate your skin. ?? If you shave your face, use an electric razor. ?? Apply sunscreen with at least SPF 15 daily. Sun exposure can make rosacea symptoms worse. ?? Choose skin care products and cosmetics that are nonirritating, oil-free, and fragrance-free. ?? Avoid applying topical steroids to the skin lesions. Steroids can worsen rosacea. Getting Good Results Learning about rosacea is the first step toward controlling this disease. With proper treatment and self-care, you can manage your symptoms and feel better about your skin. The National Rosacea Society is a great resource for patient education. What Causes Rosacea Flare-Ups? Its often hard to pinpoint the factors that cause rosacea flare-ups. Common triggers include weatherextremes, sun exposure, alcoholic or hot beverages, spicy food, physical exertion, stress, illness, some skin products, and medications. To prevent flare-ups, keep a list of things that seem to make your rosacea worse. Then try to avoid these triggers. ?? [phone], [place] [address]. All rights reserved. This information is not intended as a substitute for professional medical care. Always follow your healthcare professional's instructions. This document has images extracted. Please consider using [employer] for all your patient education needs. Source: [facility] POWERCHART Document Id: [id number] documented in this encounter Miscellaneous Notes Telephone Encounter - Conversion, Historical Provider Ser - 09/22/2016 2:03 PM CST *Phone Message Document Contains Addenda Addendum by DAMON GONZALEZ LPN on September 26, 2016 12:44:30 REFRIGERATION TECH Spoke with: ( _ ) Patient ( _ ) Parent ( _ ) Spouse ( _ ) Child ( ) Other: _ Call back telephone number: _ Reason for Call: Left message informing patient that lab orders are in and she can call to schedule. Chief Complaint: _ Patient/Caller response to Education/Information given: ( _ ) Verbalizes understanding of instructions ( _ ) Provide intervention per provider instruction ( _ ) Reinforce information already given ( _ ) Reinforce Plan of Care ( _ ) Provide preprinted information by mail (if applicable) Source/Reference used (if applicable): _ OK to leave message on voice mail? _ OK to send message via patient portal? _ Patient told to expect return call: ( _ ) today ( _ ) tomorrow ( _ ) next work day Callers preferred language for Healthcare discussion: _ Was an academic director used for this call? _ Other ( --_ ) Addendum by FELIX SANTOS APRN, CNP on September 26, 2016 10:58:18 REFRIGERATION TECH From: FELIX SANTOS APRN WATER ATTENDANT To: Astrid Nurse; Sent: 09/26/2016 10:58:18 REFRIGERATION TECH Subject: RE: *Phone Message Let her know orders are in. Addendum by DAMON GONZALEZ LPN on September 22, 2016 14:16:13 REFRIGERATION TECH From: DAMON GONZALEZ LPN ([facility] Nurse) To: FELIX SANTOS APRN WATER ATTENDANT; Sent: 09/22/2016 14:16:13 REFRIGERATION TECH Subject: FW: *Phone Message From: JASON SANCHEZ ([facility] [employer] [facility]) To: Tony Nurse; Sent: 09/22/2016 14:03:49 REFRIGERATION TECH Subject: *Phone Message Caller is: ( x ) Patient ( ) Mother ( ) Father ( ) Spouse ( ) Daughter ( ) Son ( ) Pharmacy ( ) Other: Physician: Patient MRN #: Reason for Call: Message: S: Patient called B: We have scheduled an appointment and would like to do any labs if needed prior to their appointment so you can discuss results at their appointment. A: Patients appointment is on 10-05 R: Patient has been notified that they will receive an automated call when the orders have been entered. Advice/Action: Source used: ( ) Verbalizes understanding [...] back cell phone number ( ) Source: [facility] [employer] Document Id: [id number] Miscellaneous - Felix Santos APRN, C.N.P. - 02/03/2016 1:32 PM CDT From: FELIX SANTOS APRN WATER ATTENDANT To: AMANDA MARCELO Sent: 02/03/2016 13:32:26 CDT Amanda, Complete blood count is stable, no anemia. Sed rate is normal. Felix Results: Date Result Name Ind Value Ref Range 02/03/2016 08:33 Hgb 12.3 g/dL (12.0 - 15.5) 02/03/2016 08:33 Hct 36.8 % (34.9 - 44.5) 02/03/2016 08:33 WBC 4.5 x10(9)/L (3.4 - 10.5) 02/03/2016 08:33 RBC 4.00 x10(12)/L (3.90 - 5.03) 02/03/2016 08:33 MCV 92.0 fL (82.0 - 98.0) 02/03/2016 08:33 RDW 13.7 % (11.9 - 15.5) 02/03/2016 08:33 Platelet (L) 140 x10(9)/L (150 - 450) 02/03/2016 08:33 Neutro Absolute 2.54 10(9)/L (1.70 - 7.00) 02/03/2016 08:33 Lymph Absolute 1.30 x10(9)/L (0.90 - 2.90) 02/03/2016 08:33 [place] Absolute 0.52 x10(9)/L (0.30 - 0.90) 02/03/2016 08:33 Eos Absolute 0.11 x10(9)/L (0.05 - 0.50) 02/03/2016 08:33 Baso Absolute 0.03 x10(9)/L (0.00 - 0.30) 02/03/2016 08:33 Sed Rate 21 mm/hr (0 - 29) Source: [facility] POWERCHART Document Id: [id number] Electronically signed by Conversion, [facility] Care Team Assistant [id number] at 03/11/2017 12:50 PM CDT Miscellaneous - Felix Santos APRN, C.N.P. - 02/03/2016 8:20 AM CDT Ambulatory Patient Summary [address] [id number] Visit Information Name: FOZIAAMANDAN [facility] Number: [id number] Current Date: 02/03/2016 08:20:54 Physicians Attending Provider: FELIX SANTOS APRN WATER ATTENDANT Primary Care Provider: FELIX SANTOS APRN WATER ATTENDANT AMANDA MARCELO has been given the following list of follow-up instructions, medication list, andpatient education materials: Follow-up Instructions Your Medications Here is a list of your medications. It is important to take your medications as directed. Use a pillbox or chart to help remind you to take your medications. Please let your doctor or nurse know if you have problems taking your medications. Medication/Strength How to Take Indications/Special Instructions/Comments/Notes for Patient Medication Changes/Routing atorvastatin (atorvastatin 20 mg oral tablet) 1 Tablet(s), Oral, once a day (at bedtime) calcium-vitamin D (Calcium 600+D) 1 Tablet(s), Oral, two times a day ketoconazole topical (ketoconazole 2% topical shampoo) 1 wayne, Topical, 2 times a week metroNIDAZOLE topical (metroNIDAZOLE 0.75% topical gel) 1 wayne, Topical, once a day (in the morning) cheeks, nose folds, and chin 2x daily Misc Prescription (Misc Prescription) amberen, once a day multivitamin (B-Complex 50) 1 Tablet(s), Oral, once a day omega-3 polyunsaturated fatty acids (Fish Oil 1000 mg oral capsule) 1 cap, Oral, once a day tretinoin topical (tretinoin 0.025% topical cream) 1 wayne, Topical, once a day (at bedtime) wash hands before applying This is a CHANGE Routed to [address] [id number] verapamil (verapamil 180 mg/24 hours oral capsule, extended release) 1 cap, Oral, once a day for Reynaud's disease Stop Taking the Following Medications: Medication list as of 02-03-16 08:20 Attention: If you have any medications at home that are not on this list, DO NOT take them until youcontact your provider for clarification. Give a copy of your medication list to your primary care provider. Update your medication list any time medications or doses are changed and carry your medication list at all times in case of emergency. Electronically Signed By: FELIX SANTOS APRN, CNP Signed On:03-FEB-2016 08:19:57 Your Allergies & Intolerances Substance Reaction Symptoms Category Comments No Known Allergies Drug Your Problem List Problem Status Onset Comments Raynaud's disease Active Hypercholesterolemia Active 03/23/2010 Varicose veins Active Menorrhagia Active moderately atypical mole left lower leg- Active 01/28/2010 06/11/10 left lower leg Perimenopausal Active 12/13/2013 Mood disorder NOS. Active 12/13/2013 Nodule Lung Active 01/24/2014 01/27/14 Right upper lobe /CT: benign appearing calcification repeat CT in 3 months for stability Hyperplasia Complex Endometrial Without Atypia Active Nodule Thyroid NOS Active 04/24/2014 04/28/[address] Dermatitis Seborrheic NOS Active Sun Damaged Skin Active Acne Rosacea Active Lesion Skin Leg Active Your Upcoming Appointments Date Time Location Provider No Appointments found Attention: Contact your local Clinic if further appointment detail needed. Treating Rosacea There is no cure for rosacea, but it can be controlled in most cases, particularly with but medical treatment to manage your symptoms. Your health care provider may prescribe one or more topical treatments to apply to your skin daily. You may also be given oral medications (taken by mouth) if you havemore severe rosacea symptoms. To relieve rosacea eye symptoms, you may need prescription eyedrops. Avoid things that can easily cause your rosacea to flare, such as spicy foods, alcohol, getting embarrassed, and going from a cold environment to a warm environment. Surgery can be done to correct the more severe forms of scarring rosacea of the nose, called rhinophyma (when redness and swelling causes the nose to enlarge). Your Role in Medical Treatment How well your treatment works depends partly on you. Follow your health care providers treatment plan. Rosacea symptoms often get better with medications. But they tend to worsen again if medications are stopped. If your symptoms persist or worsen, ask about other treatment options, including combinations of treatments. Rosacea Self-Care Besides sticking with your treatment plan, follow these tips to care for your skin: ?? Wash your face twice a day with a gentle facial cleanser. Rinse your skin well with warm (not hot) water. Pat your skin dry with a cotton towel. ?? Dont scrub your skin or use sponges, brushes, or other abrasive tools. Doing so can irritate yourskin. ?? Avoid harsh scrubs or astringents. These products can irritate your skin. ?? If you shave your face, use an electric razor. ?? Apply sunscreen with at least SPF 15 daily. Sun exposure can make rosacea symptoms worse. ?? Choose skin care products and cosmetics that are nonirritating, oil-free, and fragrance-free. ?? Avoid applying topical steroids to the skin lesions. Steroids can worsen rosacea. Getting Good Results Learning about rosacea is the first step toward controlling this disease. With proper treatment and self-care, you can manage your symptoms and feel better about your skin. The National Rosacea Society is a great resource for patient education. What Causes Rosacea Flare-Ups? Its often hard to pinpoint the factors that cause rosacea flare-ups. Common triggers include weatherextremes, sun exposure, alcoholic or hot beverages, spicy food, physical exertion, stress, illness, some skin products, and medications. To prevent flare-ups, keep a list of things that seem to make your rosacea worse. Then try to avoid these triggers. ?? [id number] [employer], [address] [place] [address], [place] [address]. All rights reserved. This information is not intended as a substitute for professional medical care. Always follow your healthcare professional's instructions. Consider Using Patient Online Services Patient Online Services is a secure online and Mobile application that lets you: ?? View lab and test results ?? View portions of your medical record including clinical notes, immunizations and discharge summaries ?? Request an appointment or medication refill ?? Review your appointment schedule ?? Send secure messages to your care team Its easy to create an account if you dont have one. Go to [email or web address] and click on Create Your Account. Then, follow the directions to complete the online form. Youll be asked for your [facility] number which you can find at the top of this document. Your Goals/Additional instructions: This document has images extracted. Please consider using [employer] for all your patient education needs. Source: [facility] POWERCHART Document Id: [id number] Miscellaneous - Felix Santos APRN, C.N.P. - 02/03/2016 8:20 AM CDT Ambulatory Discharge Medication List [address] [id number] Visit Information Name: FOZIA AMANDA RHONDA [facility] Number: [id number] Visit Date: 02/03/2016 08:20:54 Attending Provider: FELIX SANTOS APRN WATER ATTENDANT Primary Care Provider: FELIX SANTOS APRN WATER ATTENDANT MARCELINA MARCELOOLIVA HIGGINSN has been given the following list of medications: Your Medications It is important to take your medications as directed. Use a pill box or chart to help remind you to take your medications. Please let your doctor or nurse know if you have problems taking your medications. Medication/Strength How to Take Indications/Special Instructions/Comments/Notes for Patient Medication Changes/Routing atorvastatin (atorvastatin 20 mg oral tablet) 1 Tablet(s), Oral, once a day (at bedtime) calcium-vitamin D (Calcium 600+D) 1 Tablet(s), Oral, two times a day ketoconazole topical (ketoconazole 2% topical shampoo) 1 wayne, Topical, 2 times a week metroNIDAZOLE topical (metroNIDAZOLE 0.75% topical gel) 1 wayne, Topical, once a day (in the morning) cheeks, nose folds, and chin 2x daily Misc Prescription (Misc Prescription) amberen, once a day multivitamin (B-Complex 50) 1 Tablet(s), Oral, once a day omega-3 polyunsaturated fatty acids (Fish Oil 1000 mg oral capsule) 1 cap, Oral, once a day tretinoin topical (tretinoin 0.025% topical cream) 1 wayne, Topical, once a day (at bedtime) wash hands before applying This is a CHANGE Routed to [address] [id number] verapamil (verapamil 180 mg/24 hours oral capsule, extended release) 1 cap, Oral, once a day for Reynaud's disease Stop Taking the Following Medications: Medication list as of 02-03-16 08:20 Attention: If you have any medications at home that are not on this list, DO NOT take them until youcontact your provider for clarification. Give a copy of your medication list to your primary care provider. Update your medication list any time medications or doses are changed and carry your medication list at all times in case of emergency. Electronically Signed By: FELIX SANTOS APRN WATER ATTENDANT Signed On:03-FEB-2016 08:19:57 Additional Information: Source: [facility] POWERCHART Document Id: [id number] Miscellaneous - Dori Zabala L.PKarolNKarol - 02/03/2016 7:57 AM CDT Adult Seat Scooper Machine Intake/History Adult Seat Scooper Machine Intake/History Entered On: 02/03/2016 8:01 CDT Performed On: 02/03/2016 7:57 CDT by DORI ZABALA LPN Intake Chief Complaint : Needs refills of tretinion cream. Has what she thought was a boil on right side ofabdomen. Drained. Still red. Recently tested for food allergy. Wants test done because she is not feeling well. Temperature Core : 37.3 DegC(Converted to: 99.1 DegF) Peripheral Pulse Rate : 68 /min Respiratory Rate : 12 /min (LOW) Heart Rhythm : Regular Systolic Blood Pressure : 102 mmHg Diastolic Blood Pressure : 58 mmHg NIBP Mean : 73 mmHg BP Location : Right upper extremity Blood Pressure Cuff Size : Regular Height : 177 cm(Converted to: 5 ft 10 inch(es), 70 inch(es)) Actual Weight : 80.5 kg(Converted to: 177 lb 8 oz) Weight Source : Standing scale Dosing Weight Clinic : 80.5 kg Clinic BSA : 1.99 Body Mass Index : 25.7 kg/m2 DORI ZABALA LPN - 02/03/2016 7:57 CDT General Info Information Given By : Patient Preferred Communication Mode : Verbal Languages : Mauritanian Is Patient Female and 13-50 no hysterectomy : No DORI ZABALA LPN - 02/03/2016 7:57 CDT Subjective Pain Symptoms : No DORI ZABALA LPN - 02/03/2016 7:57 CDT Dependent Habits Exposure to Tobacco Smoke : Other: Never Smoking Status : Never smoker Tobacco 2A : No Tobacco Use/Currently Using : No Tobacco Use/Last 30 Days : No Tobacco Use/Last 12 months : No DORI ZABALA LPN - 02/03/2016 7:57 CDT Caffeine Use Grid Caffeine Use : Current Type : Soft drinks Frequency : Occasionally DORI ZABALA LPN - 02/03/2016 7:57 CDT Recreational Drug Use Grid Drug Use : None DORI ZABALA LPN - 02/03/2016 7:57 CDT Source: [facility] POWERCHART Document Id: [id number] CDT!40 documented in this encounter Plan of Treatment Not on filedocumented as of this encounter Procedures Procedure Name Priority Date/Time Associated Comments Diagnosis AUTOMATED Routine 02/03/2016 8:33 AM Results f or this DIFFERENTIAL, B CDT procedure ar e in the results section. SEDIMENTATION RATE, B Routine 02/03/2016 8:33 AM Results for this CDT procedure are i n the results section. CBC WITH DIFFERENTIAL, Routine 02/03/2016 8:33 AM Results for this B CDT procedure are i n the results section. documented in this encounter Results Automated Differential (02/03/2016 8:33 AM CDT) athologist Signature Absolute 2.54 1.70 - POWERCHART Neutrophils 7.00 109L Lymphocytes 1.30 0.90 - POWERCHART 2.90 X109L Monocytes 0.52 0.30 - POWERCHART 0.90 X109L Eosinophils 0.11 0.05 - POWERCHART 0.50 X109L Absolute 0.03 0.00 - POWERCHART Basophil 0.30 X109L Specimen Anatomical Collection Method Collection Time Receive d Time (Source) Location / / Volume Laterality Blood 02/03/2016 8:33 AM 6 8:33 CDT AM CDT Felix Santos APRN, C.N.P. LAB BLOOD ADD-ON Performing Organization Address City/State/ZIP Code Phon e Number POWERCHART (ABNORMAL) CBC with Differential (02/03/2016 8:33 AM CDT) athologist Signature Leukocytes 4.5 3.4 - 10.5 POWERCHART X109L Erythrocytes 4.00 3.90 - POWERCHART 5.03 [id number] Hemoglobin 12.3 12.0 - POWERCHART 15.5 GDL Hematocrit 36.8 34.9 - POWERCHART 44.5 MCV 92.0 82.0 - POWERCHART 98.0 FL Platelet Count 140 (L) 150 - 450 POWERCHART X109L HX RDW 13.7 11.9 - POWERCHART 15.5 Specimen (Source) Anatomical Collection Method Collection Time Re ceived Time Location / / Volume Laterality Blood 02/03/2016 8:33 AM CDT Felix J Myrom MIXER BLENDER, C.N.P. LAB BLOOD ADD-ON Performing Organization Address City/State/ZIP Code Phon e Number POWERCHART Sedimentation Rate (02/03/2016 8:33 AM CDT) Analysis Performed At [facility] Time Signature Sedimentation 21 0 - 29 POWERCHART Rate, B MMHR Specimen (Source) Anatomical Collection Method Collection Time Re ceived Time Location / / Volume Laterality Blood 02/03/2016 8:33 AM CDT Felix Santos APRN, C.N.P. LAB BLOOD ADD-ON Performing Organization Address City/[facility] Phon e Number POWERCHART documented in this encounter Visit Diagnoses Not on filedocumented in this encounter Additional Health Concerns Assessment Noted Time PHQ-9 Depression Total Score: 3 09/15/2015 10:56 AM CS T documented as of this encounter
--- OUTSIDE RECORDS SUMMARY | 2022-06-30 08:31 | XMS_ITS | Encounter Summary ---
:1960 Author Organization [facility] Address [address] [place] [address] Care Team Providers Name Role Phone Allyson Resendiz APRN, C.N.P. Primary Care Provider [phone] Encounter Details Date Type Department Care Team Description 09/13/2017 Abstract Department of General Surgery in [facility] , [address] [address] Social History Tobacco Use Types Packs/Day Years Used Date Smoking Tobacco: Never Alcohol Habits Answer Date Recorded How often [...] or relatives? How often do you attend jainism or nondenominational More than 4 time s per year 02/02/2021 services? Do you belong to any clubs or organizations No 02/02/2021 such as jainism groups, unions, fraternal or athletic groups, or [...] on filedocumented in this encounter Care Teams Estate Conservator Relationship Specialty Start Date End Date Allyson Resendiz, ASHIA, C.N.P. PCP - General 03/30/17 [address] [place] [address] documented as of this encounter
--- OUTSIDE RECORDS SUMMARY | 2022-06-30 08:31 | XMS_ITS | Encounter Summary ---
:1960 Author Organization [facility] Address [address] [place] [address] Care Team Providers Name Role Phone Unavailable Primary Care Provider Unavailable Encounter Details Date Type Department Care Team Description 05/12/2015 Hospital Encounter HX NO MAPPING Amador John M.D. [address] [facility], [address] [place], [place] [address] (Wo rk) Social History Tobacco Use Types [...] How often do you attend shinto or restoration More than 4 time s [...] (OMEGA 3-6-9 mouth daily. FATTY ACIDS ORAL) vqnoepwhddqj-Td-nheo-min Take 1 tablet by 0 01/14 erals tablet mouth daily. UNABLE TO FIND daily. Amberen 0 09/30/2013 ketoconazole Apply 1 application 0 09/30/2014 (for_NIZORAL) 2 % topically 2 (two) shampoo times a week. metroNIDAZOLE Apply 1 application 0 09/30/2014 (for_ROSADAN) 0.75 % gel topically every morning. documented as of this encounter Miscellaneous Notes Miscellaneous - Conversion, Historical Provider Ser - 05/12/2015 11:59 PM CDT Coding Summary-Paper Based CODING DATE: 05/28/2015 FINAL [facility] STATUS: * Discharged to Home or Self Care PAYOR: Blue enEvolv ADMIT DX: REASON FOR VISIT DX: FINAL DX: PRINCIPAL: 692.9 Dermatitis / Eczema NOS SECONDARY: PROCEDURES DOCTOR NAME DATE NOTE: The code number assigned matches the documented diagnosis and / or procedure in the patient's chart. However, the narrative phrase printed from the coding software may appear abbreviated, or result in slightly different terminology. Revised Coded By: GILBERTO BURTON Revised Date Saved: 05/26/2015 06:29 pm [facility] Document Id: [id number] documented in this encounter Plan of Treatment Not on filedocumented as of this encounter Visit Diagnoses Not on filedocumented in this encounter
--- OUTSIDE RECORDS SUMMARY | 2022-06-30 08:31 | XMS_ITS | Encounter Summary ---
:1960 Author Organization [facility] Address [address] [place] [address] Care Team Providers Name Role Phone Unavailable Primary Care Provider Unavailable Encounter Details Date Type Department Care Team Description 10/02/2015 Hospital Encounter HX [facility] Allyson Trinh, SALES PERSON, C.N.P. [address] [place], [place] [phone] (Wo rk) Social History [...] How often do you attend jainism or religion More than 4 time s per year [...] - Height 178 cm (5' 10.08) 10/02/2015 8:00 AM AITCHBONE BREAKER Body Mass Index - - documented in [...] (OMEGA 3-6-9 mouth daily. FATTY ACIDS ORAL) hnyuneosbwtd-Px-ylom-min Take 1 tablet by 0 01/14 erals tablet mouth daily. UNABLE TO FIND daily. Amberen 0 09/30/2013 ketoconazole Apply 1 application 0 09/30/2014 (for_NIZORAL) 2 % topically 2 (two) shampoo times a week. metroNIDAZOLE Apply 1 application 0 09/30/2014 (for_ROSADAN) 0.75 % gel topically every morning. documented as of this encounter Plan of Treatment Not on filedocumented as of this encounter Procedures Procedure Name Priority Date/Time Associated Diagnosis Comme nts BI BREAST SCREENING Routine 10/02/2015 8:43 AM Re sults for this BILATERAL AITCHBONE BREAKER procedure are i n the results section. documented in this encounter Results BI Breast Screening Bilateral (10/02/2015 8:43 AM AITCHBONE BREAKER) Anatomical Region Laterality Modality Breast Bilateral Mammography Specimen (Source) Anatomical Collection Method Collection Time Re ceived Time Location / / Volume Laterality 10/02/2015 8:43 AM AITCHBONE BREAKER Impressions 10/02/2015 1:18 PM AITCHBONE BREAKER No mammographic findings for malignancy in either breast. Recommendations: ??I recommend a follow- up mammogram in 1 year, self breast exams at least once per month and clinical breast exam at least once per year. ??Of note, benign f indings should not deter biopsy in the setting of a palpable abno rmality. ??The false negative rate of mammography is approximately 10% . CODE: 1-NEGATIVE Appropriate letter sent. Full field digital mammography is used a nd Computer Aided Detection is performed on the digital mammogram im ages. Narrative 10/02/2015 1:18 PM AITCHBONE BREAKER EXAM: [place] Mammo Screening w/ CADD INDICATION: screen COMPARISON: 10/01/2014, 09/30/2013, 04/04, 03/30/2011, 03/23/2010 FINDINGS: Extremely dense breast parench yma bilaterally. Breast density diminishes mammographic sensitiv ity for detection of malignancy. Procedure Note Salvador Turcios M.D. / Provider, Aimee knowles M.D. - 02/23/2017 EXAM: MA Mammo Screening w/ CADD INDICATION: screen COMPARISON: 10/01/2014, 09/30/2013, 04/04, 03/30/2011, 03/23/2010 FINDINGS: Extremely dense breast parench yma bilaterally. Breast density diminishes mammographic sensitiv ity for detection of malignancy. IMPRESSION: No mammographic findings for malignancy in either breast. Recommendations: I recommend a follow-up mammogram in 1 year, self breast exams at least once per month and clinical breast exam at least once per year. Of note, benign fin dings should not deter biopsy in the setting of a palpable abno rmality. The false negative rate of mammography is approximately 10% . CODE: 1-NEGATIVE Appropriate letter sent. Full field digital mammography is used a nd Computer Aided Detection is performed on the digital mammogram im ages. Historical Provider IMG BI PROCEDURES documented in this encounter Visit Diagnoses Not on filedocumented in this encounter Additional Health Concerns Assessment Noted Time PHQ-9 Depression Total Score: 3 09/15/2015 10:56 AM CS T documented as of this encounter
--- OUTSIDE RECORDS SUMMARY | 2022-06-30 08:31 | XMS_ITS | Encounter Summary ---
:1960 Author Organization [facility] Address [address] [place] [address] Care Team Providers Name Role Phone Allyson Resendiz APRN, C.N.P. Primary Care Provider [phone] Encounter Details Date Type Department Care Team Description 07/31/2017 Orders Only Department of Family Allyson Resendiz, Hypercholesterolemia Medicine, [place] ASHIA C.N.PKarol [facility], in [facility] [address] [address] [place], [place] [phone] [address] (Work) [phone] Social History Tobacco Use Types Packs/Day Years [...] or relatives? How often do you attend religious or shinto More than 4 time s per year 02/02/2021 services? Do you belong to any clubs or organizations No 02/02/2021 such as religious groups, unions, fraternal or athletic groups, or [...] Hypercholesterolemia documented in this encounter Care Teams Child And Family Services Worker Relationship Specialty Start Date End Date Allyson Resendiz, ASHIA, C.N.P. PCP - General [address] [place] [phone] documented as of this encounter
--- OUTSIDE RECORDS SUMMARY | 2022-06-30 08:31 | XMS_ITS | Encounter Summary ---
:1960 Author Organization [facility] Address [address] [place] [address] Care Team Providers Name Role Phone Allyson Resendiz APRN, C.N.P. Primary Care Provider [phone] Reason for Referral Outpatient (Routine) - Closed Specialty Diagnoses / Procedures Referred By Contact Refer red To Contact Family Medicine Allyson Resendiz APRN, [facility] C.N.P. [address] [place] [address] Referral ID Status Reason Start Date Expiration Date Visits Requ ested Visits Authorized [id number] Closed 09/05/2017 03/04/2018 1 1 Scheduling Instructions Preop for Colonoscopy LTER Reason for Visit Reason Comments Communication Encounter Details Date Type Department Care Team Description 09/05/2017 Clinical Communication Department of [place] [facility], [place] ASHIA, C.N.P. [facility], in [facility] [address] [place], [place] [address] [address] [place], [place] [phone] [address] (Work) [phone] Social History Tobacco Use Types Packs/Day Years [...] or relatives? How often do you attend muslim or protestant More than 4 time s per year 02/02/2021 services? Do you belong to any clubs or organizations No 02/02/2021 such as muslim groups, unions, fraternal or athletic groups, or [...] this encounter Miscellaneous Notes Telephone Encounter - Silvia Diamond - 09/05/2017 4:28 PM REMELTER Patient is scheduled. LTER Telephone Encounter - Deirdre Cha CKarolMKarolAKarol - 09/05/2017 3:06 PM REMELTER Order in schedule please. LTER Telephone Encounter - Deirdre Cha CKarolMKarolAKarol - 09/05/2017 1:46 PM REMELTER Please put order in so scheduling can schedule patient for pre op. LTER Telephone Encounter - Silvia Diamond - 09/05/2017 12:44 PM REMELTER I don't see an order for a pre-op. Please have provider order a pre-op. LTER Telephone Encounter - Deirdre Cha C.MAnita - 09/05/2017 10:20 AM REMELTER Please schedule patient. LTER Telephone Encounter - Cheyenne Cutler - 09/05/2017 10:09 AM CST Patient has a colonoscopy on 09/25/[address] Blas. She needs to have a pre-op ordered before we can schedule. LTER documented in this encounter Plan of Treatment Scheduled Referrals Name Type Priority Associated Diagnoses Order S [facility] Family Medicine Outpatient Referral Routine Expec cheryl: office visit 09/05/2017 (clinic) - Self (Approximate ), Expires: 09/05/2020 documented as of this encounter Visit Diagnoses Not on filedocumented in this encounter Care Teams Polishing Pad Mounter Relationship Specialty Start Date End Date Allyson Resendiz, COPY PREPARER, C.N.P. PCP - General [address] [place] [address] documented as of this encounter
--- OUTSIDE RECORDS SUMMARY | 2022-06-30 08:31 | XMS_ITS | Encounter Summary ---
:1960 Author Organization [facility] Address [address] [place] [address] Care Team Providers Name Role Phone Unavailable Primary Care Provider Unavailable Encounter Details Date Type Department Care Team Description 10/03/2016 Hospital Encounter HX [facility] Allyson Resendiz, Alejandra DE LA GARZA, C.N.P. [address] [place], [place] [phone] (Wo rk) Social History [...] How often do you attend religion or pentecostalism More than 4 time s per year [...] or slept in a fpc (including now)? Sex Assigned at Date Recorded Not on file documented as of this encounter Last Filed Vital Signs Vital Sign Reading Time Taken Comments Blood Pressure - - Pulse - - Temperature - - Respiratory Rate - - Oxygen Saturation - - Inhaled Oxygen Concentration - - Weight - - Height 177 cm (5' 9.69) 10/03/2016 8:24 AM OUTSOLE SPLICER Body Mass Index - - documented in [...] (OMEGA 3-6-9 mouth daily. FATTY ACIDS ORAL) gfyshtwftjaj-Pu-nwfn-min Take 1 tablet by 0 01/14 erals [...] at bedtime. documented as of this encounter Plan of Treatment Not on filedocumented as of this encounter Procedures Procedure Name Priority Date/Time Associated Comments Diagnosis LIPID PANEL, S Routine 10/03/2016 8:37 Results fo r this AM OUTSOLE SPLICER procedure are i n the results section. AUTOMATED DIFFERENTIAL, Routine 10/03/2016 8:37 R esults for this B AM OUTSOLE SPLICER procedure are i n the results section. CBC WITH DIFFERENTIAL, B Routine 10/03/2016 8:37 Results for this AM OUTSOLE SPLICER procedure are i n the results section. ASPARTATE Routine 10/03/2016 8:37 Results for this AMINOTRANSFERASE (AST), AM OUTSOLE SPLICER proc edure are in S/P the results section. THYROID-STIMULATING Routine 10/03/2016 8:37 Resul ts for this HORMONE-SENSITIVE AM OUTSOLE SPLICER procedure are in (S-TSH) the results section. documented in this encounter Results Automated Differential (10/03/2016 8:37 AM OUTSOLE SPLICER) P athologist Signature Absolute 3.22 1.70 - POWERCHART Neutrophils 7.00 109L Lymphocytes 1.45 0.90 - POWERCHART 2.90 X109L Monocytes 0.64 0.30 - POWERCHART 0.90 X109L Eosinophils 0.11 0.05 - POWERCHART 0.50 X109L Absolute 0.04 0.00 - POWERCHART Basophil 0.30 X109L Specimen Anatomical Collection Method Collection Time Receive d Time (Source) Location / / Volume Laterality Blood 10/03/2016 8:37 AM 6 8:37 OUTSOLE SPLICER AM OUTSOLE SPLICER Allyson Resendiz APRN, C.N.P. LAB BLOOD ADD-ON Performing Organization Address City/State/ZIP Code Phon e Number POWERCHART CBC with Differential (10/03/2016 8:37 AM OUTSOLE SPLICER) P athologist Signature Leukocytes 5.5 3.4 - 10.5 POWERCHART X109L Erythrocytes 4.09 3.90 - 5.03 POWERCHART [id number] Hemoglobin 12.5 12.0 - 15.5 POWERCHART GDL Hematocrit 38.4 34.9 - 44.5 POWERCHART MCV 93.9 82.0 - 98.0 POWERCHART FL HX RDW 13.3 11.9 - 15.5 POWERCHART Platelet Count 178 150 - 450 POWERCHART X109L Specimen (Source) Anatomical Collection Method Collection Time Re ceived Time Location / / Volume Laterality Blood 10/03/2016 8:37 AM OUTSOLE SPLICER Allyson Resendiz APRN, C.N.P. LAB BLOOD ADD-ON Performing Organization Address City/[facility] Code Phon e Number POWERCHART Thyroid-Stimulating Hormone-Sensitive (s-TSH) (10/03/2016 8:37 AM OUTSOLE SPLICER) P athologist Signature TSH 1.07 0.27 - 4.20 POWERCHART (Thyrotropin) NAYELI Comment: Biotin has been identified by the jill giangurer as a potential interfering substance. Higher concentrations of biotin may be found in multivitamins, hair/nail supplements, and workout supplements. If the result does not match clinical observat ions, repeat testing after patient refrains from the use of supplements for at least 12 hours. Specimen (Source) Anatomical Collection Method Collection Time Re ceived Time Location / / Volume Laterality Blood 10/03/2016 8:37 AM OUTSOLE SPLICER Allyson Resendiz APRN, C.N.P. LAB BLOOD ADD-ON Performing Organization Address City/State/ZIP Code Phon e Number POWERCHART AST (Aspartate Aminotransferase) (10/03/2016 8:37 AM OUTSOLE SPLICER) Patholo gist Method Time Signature Aspartate 25 8 - 43 POWERCHART Aminotransferase UNITL (AST), S Specimen (Source) Anatomical Collection Method Collection Time Re ceived Time Location / / Volume Laterality Blood 10/03/2016 8:37 AM OUTSOLE SPLICER Allyson Homa Klaudia Resendiz APRN.N.P. LAB BLOOD ADD-ON Performing Organization Address City/State/ZIP Code Phon e Number POWERCHART (ABNORMAL) Lipid Panel (10/03/2016 8:37 AM OUTSOLE SPLICER) P athologist Signature Cholesterol, 206 (H) <=199 MGDL POWERCHART Total Comment: 2014 National Lipid Association recommen dations for Total Cholesterol in adults ages 18 and up: Desirable <200 mg/dL Borderline high 200-239 mg/dL High 240 mg/dL 2014 National Lipid Association recommen dations for Total Cholesterol in children ages 2 to 17. Acceptable <170 mg/dL Borderline High 170-199 mg/dL High 200 mg/dL HX HDL 78 >=50 MGDL POWERCHART Comment: 2014 National Lipid Association recommen dations for HDL-C in adults ages 18 and up: Low <40 mg/dL (Men) Low <50 mg/dL (Women) 2014 National Lipid Association recommen dations for HDL-C in children ages 2 to 17. Low <40 mg/dL Borderline Low 40-45 mg/dL Acceptable >45 mg/dL Triglycerides 83 <=149 MGDL POWERCHART Comment: 2014 National Lipid Association [...] for risk assessment when triglycerides are >400mg/dL. Calculated LDL 111 <=129 MGDL POWERCHART Comment: 2013 National Lipid Association recommen dations for LDL-C [...] esting for FH and FDB is available [facility]: FH/ADH Genetic Reflex Gonzalez el (test ADHP). Acquired (non-genetic) causes of markedly increased LDL cholesterol include cholestatic liver disease due to the presence of LpX. If a genetic form of hypercholesterolemia is suspected, family studies including biochemical testing fo r lipids (total cholesterol,triglycerides, LDL cholesterol and HDL cholesterol) are recommended. ??Please contact the laboratory at or the on-line test catalog at [employer] for information about how to order these milton ts or to speak with a genetic counselor. Further interpretation would require clinical information. Total Cholesterol/HDL Ratio 3.00 PO WERCHART HXLDL/HDL 1 POWERCHART Specimen (Source) Anatomical Collection Method Collection Time Re ceived Time Location / / Volume Laterality Blood 10/03/2016 8:37 AM OUTSOLE SPLICER Allyson Resendiz APRN, C.N.P. LAB BLOOD ADD-ON Performing Organization Address City/State/ZIP Code Phon e Number POWERCHART documented in this encounter Visit Diagnoses Not on filedocumented in this encounter Additional Health Concerns Assessment Noted Time PHQ-9 Depression Total Score: 3 09/15/2015 10:56 AM CS T documented as of this encounter
--- OUTSIDE RECORDS SUMMARY | 2022-06-30 08:31 | XMS_ITS | Encounter Summary ---
:1960 Author Organization [facility] Address [address] [place] [address] Care Team Providers Name Role Phone Unavailable Primary Care Provider Unavailable Encounter Details Date Type Department Care Team Description 10/04/2016 Hospital Encounter HX [facility]ALIAO Allyson Resendiz, NECK CUTTER, C.N.P. [address] [place], [place] [address] (Wo rk) Social History [...] or relatives? How often do you attend pentecostal or mu-ism More than 4 time s per year 02/02/2021 services? Do you belong to any clubs or organizations No 02/02/2021 such as pentecostal groups, unions, fraternal or athletic groups, or [...] - - Height 177 cm (5' 9.69) 10/04/2016 8:02 AM ADMINISTRATIVE OFFICE CLERK Body Mass Index - - documented in [...] (OMEGA 3-6-9 mouth daily. FATTY ACIDS ORAL) [id number]-[id number]-min Take 1 tablet by 0 01/14 erals [...] Diagnosis Comme nts BI BREAST SCREENING Routine 10/04/2016 8:10 AM Re sults for this BILATERAL ADMINISTRATIVE OFFICE CLERK procedure are i n the results section. documented in this encounter Results BI Breast Screening Bilateral (10/04/2016 8:10 AM ADMINISTRATIVE OFFICE CLERK) Anatomical Region Laterality Modality Breast Bilateral Mammography Specimen (Source) Anatomical Collection Method Collection Time Re ceived Time Location / / Volume Laterality 10/04/2016 8:10 AM ADMINISTRATIVE OFFICE CLERK Addenda Addendum by Provider, Mario Philip 10/04/2016 8:10 AM ADMINISTRATIVE OFFICE CLERK RAD^^^OW MA Mammo Screening w ??CADD 10/04/2016 08:10:31 Impressions 10/04/2016 9:09 AM ADMINISTRATIVE OFFICE CLERK 1. Negative, heterogeneously dense breas t tissue study. 2. Because of the dense nature of the br easts, yearly mammograms are considered extremely important. BREAST MAMMOGRAPHY-GENERAL OBSERVATIONS: The false negative rate for mammography is 15 to 20%. It cannot be u sed, therefore, to replace regular physical examination. A normal o r noncontributory mammogram report should also not deter the aggress kenton further workup of any suspected palpable masses. ACR Code 1 (negative) Narrative 10/04/2016 9:09 AM ADMINISTRATIVE OFFICE CLERK EXAM: [place] Mammo Screening w/ CADD Bilateral craniocaudal and oblique views of the breasts were obtained digitally, and compared to the patient's prior studies of 10/02/2015 and prior. Computer Aided Detection was utilized during the interpretation of this exam The breasts remain heterogeneously dense , and therefore a noncalcified lesion may easily be obscur ed. However, there are no suspicious groupings of calcifications, dominant nodules, areas of skin thickening or nipple retraction not ed on this study to suggest malignancy. Procedure Note Spencer Bearden D.O. / ProviderPeggy M.D. - 02/18/2017 EXAM: [place] Mammo Screening w/ CADD Bilateral craniocaudal and oblique views of the breasts were obtained digitally, and compared to the patient's prior studies of 10/02/2015 and prior. Computer Aided Detection was utilized during the interpretation of this exam The breasts remain heterogeneously dense , and therefore a noncalcified lesion may easily be obscur ed. However, there are no suspicious groupings of calcifications, dominant nodules, areas of skin thickening or nipple retraction not ed on this study to suggest malignancy. IMPRESSION: 1. Negative, heterogeneously dense breas t tissue study. 2. Because of the dense nature of the br easts, yearly mammograms are considered extremely important. BREAST MAMMOGRAPHY-GENERAL OBSERVATIONS: The false negative rate for mammography is 15 to 20%. It cannot be u sed, therefore, to replace regular physical examination. A normal o r noncontributory mammogram report should also not deter the aggress kenton further workup of any suspected palpable masses. ACR Code 1 (negative) Naya Crowe R.T.(R), R.T.(R)(M) IMG BI PROCEDURES documented in this encounter Visit Diagnoses Not on filedocumented in this encounter Additional Health Concerns Assessment Noted Time PHQ-9 Depression Total Score: 3 09/15/2015 10:56 AM CS T documented as of this encounter
--- OUTSIDE RECORDS SUMMARY | 2022-06-30 08:31 | XMS_ITS | Encounter Summary ---
:1960 Author Organization [facility] Address [address] [place] [address] Care Team Providers Name Role Phone Allyson Resendiz APRN, C.N.PKarol Primary Care Provider [phone] Reason for Visit Reason Onset Date Comments Pre-op Exam 09/19/2017 Faxed pre[facility]op to [facility]. Encounter Details Date Type Department Care Team Description 09/19/2017 Documentation Department of Family Dori Zamorano e-op Exam (Faxed Medicine, Adan Cartagena L.P.N. pre-op to [facility], in [place], [address] [place], [place] [facility].) [address] [address] [place], [place] [phone] [address] (Work) [phone] Social History Tobacco Use Types Packs/Day Years [...] or relatives? How often do you attend judaism or yazidism More than 4 time s per year 02/02/2021 services? Do you belong to any clubs or organizations No 02/02/2021 such as judaism groups, unions, fraternal or athletic groups, or [...] place to sleep or slept in a long-term (including now)? Sex Assigned at Date Recorded Not on file documented as of this encounter Progress Notes Dori Zamorano L.P.N. - 09/19/2017 10:20 AM CST . 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 PCP - General 03/30/[address] [phone] documented as of this encounter
--- OUTSIDE RECORDS SUMMARY | 2022-06-30 08:31 | XMS_ITS | Encounter Summary ---
:1960 Author Organization [facility] Address [address] [place] [address] Care Team Providers Name Role Phone Unavailable Primary Care Provider Unavailable Encounter Details Date Type Department Care Team Description 10/05/2015 Hospital Encounter HX [facility] MyrRula donovan, RETANNED LEATHER ROLLER, C.N.P. [address] [place] [address] (Wo rk) Social History Tobacco [...] or relatives? How often do you attend pentecostalism or pentecostalism More than 4 time s per year 02/02/2021 services? Do you belong to any clubs or organizations No 02/02/2021 such as pentecostalism groups, unions, fraternal or athletic groups, or [...] place to sleep or slept in a intermediate (including now)? Sex Assigned at Date Recorded Not on file documented as of this encounter Last Filed Vital Signs Vital Sign Reading Time Taken Comments Blood Pressure 112/58 10/05/2015 7:53 AM TABLE HAND Pulse 78 10/05/2015 7:53 AM TABLE HAND Temperature - - Respiratory Rate 20 10/05/2015 7:53 AM TABLE HAND Oxygen Saturation - - Inhaled Oxygen Concentration - - Weight 83 kg (182 lb 15.7 oz) 10/05/2015 7:53 AM TABLE HAND Height 178 cm (5' 10.08) 10/05/2015 7:53 AM TABLE HAND Body Mass Index 26.2 10/05/2015 7:53 AM TABLE HAND documented in this encounter Medications at Time [...] (OMEGA 3-6-9 mouth daily. FATTY ACIDS ORAL) nmidamnzqrjn-Qm-sjvq-min Take 1 tablet by 0 01/14 erals tablet mouth daily. UNABLE TO FIND daily. Amberen 0 09/30/2013 ketoconazole Apply 1 application 0 09/30/2014 (for_NIZORAL) 2 % topically 2 (two) shampoo times a week. metroNIDAZOLE Apply 1 application 0 09/30/2014 (for_ROSADAN) 0.75 % gel topically every morning. documented as of this encounter H&P Notes Felix Santos, ASHIA, C.N.P. - 10/05/2015 8:13 AM CST Clinic Full Note CHIEF COMPLAINT/REASON FOR VISIT Physical- Did labs and mammogram last Monday. Needs refill of atorvastatin. HISTORY OF PRESENT ILLNESS Amanda is here for a Health Care Maintenance Exam. She had labs and mammogram done last week. We reviewed labs. She has hypercholesterolemia, lipids are within normal range. Atorvastatin will be refilled for the year. MEDICATIONS atorvastatin 20 mg oral tablet, 20 mg, 1 tab(s), PO, Bedtime, 3 refills B-Complex 50, 1 tab(s), PO, Daily Calcium 600+D, 1 tab(s), PO, 3xDay Fish Oil 1000 mg oral capsule, 1,000 mg, 1 cap(s), PO, Daily ketoconazole 2% topical shampoo, 1 wayne, Topical, 2xWeek, 3 refills magnesium citrate, 300 mL, PO, Once metroNIDAZOLE 0.75% topical gel, 1 wayne, cheeks, nose [...] must include the following: Cholesterol, serum, total (54082) Lipoprotein, direct measurement, high density cholesterol (HDL cholesterol) (48623) Triglycerides (61794). (01/15/2010), Varicose vein stripping (03/30/2006), Ovarian cystectomy (03/30/1987). SOCIAL HISTORY Date Time: 10/05/2015 07:53 Tobacco: Smoking Status: Never smoker Exposure: Other: Never Alcohol: Use: Yes Recreational Drugs: Use: None Type: No Results Found FAMILY HISTORY Mother ( at 69 year(s)):Positive: Brain tumor; Hyperlipidemia Father:Positive: Skin cancer Sister: Negative: Brother: Negative: Sister: Negative: Brother: Negative: HEALTH MAINTENANCE Up to date. SYSTEMS REVIEW GENERAL: No weight gain, no weight loss, [...] no constipation, no diarrhea, no blood in BMs, no change in BMs BREAST: No lumps of breast, no nipple [...] ENDOCRINE: No excessive thirst, no excessive bruising VITAL SIGNS T: 37.2 ??C (Core) HR: 78 RR: 20 BP: 112 / 58 HT: 178 cm WT: 83 kg BMI: 26.2 PHYSICAL EXAMINATION GENERAL: In general, the patient is a pleasant female who appears her stated age. SKIN: Without lesion. EYES: PERRLA. EOMs intact. Fundi sharp discs. Conjunctiva and lids [...] palpable mass, no hepatosplenomegaly. GENITALIA: Bartholin, urethra, Kingfisher's, vagina without lesion. Bimanual examination reveals no masses or tenderness in the uterine or adnexal areas. SPINE: Normal range of motion. No CVA tenderness. JOINTS: Normal range of motion. EXTREMITIES: Warm, dry, no cyanosis or peripheral edema. MENTAL: Alert and oriented times three. NEUROLOGIC: Deep tendon reflexes are +2 and symmetrical. IMPRESSION/REPORT/PLAN Exam General Medical NOS (GME) Continue to work on healthy diet and regular exercise program. Return for complete physical exam and mammogram in one year. Ordered: OV Est Pt Prev 40-64 - 86569 Hypercholesterolemia Well controlled. No change in medication. Atorvastatin refilled. Ordered: OV Est Pt Level 3 - 79700 - 15 min Orders: atorvastatin, 20 mg = 1 tab(s), PO, Bedtime, # 90 tab(s), 3 Refill(s), Maintenance, [facility] Neew dose, does not need refill today. Electronically Signed By: FELIX SANTOS CNP On: 10/05/2015 08:22 AM Source: [facility] POWERCHART Document Id: [id number] E HAND documented in this encounter Nursing Notes Felix Santos APRN, C.N.P. - 10/05/2015 8:11 AM CST Ambulatory Patient Education The following Patient Education Materials have been given to the patient: Patient Education Materials: Ambulatory DIET, Low Cholesterol Ambulatory Diet: Low Cholesterol Cholesterol is needed by the body to build new cells and create certain hormones. There are two kinds of cholesterol in the blood: ?? Good cholesterol prevents fat deposits (plaque) from building up in the arteries. In this way it protects against heart disease and stroke. ?? Bad cholesterol stays in the body and sticks to artery partida. It may eventually block blood flow to the heart and brain causing heart attack or stroke. 75% of the bodys cholesterol is made in the liver. Only 25% of the bodys cholesterol comes from the food you eat. While the amount of cholesterol in your diet should be limited, it is the cholesterol that your body makes that creates the greatest disease risk. The biggest influence on cholesterol madeby your body is the mixture of fat types in your diet. There are two kinds of fats you can eat: ?? Good Fats are the unsaturated fats (mono-saturated and poly-unsaturated). They raise the level ofgood cholesterol and lower the level of bad cholesterol. Good fats are found in vegetable oils such as olive, sunflower, corn and soybean oils, and in nuts and seeds. ?? Bad Fats are the saturated fats (including foods high in cholesterol) and trans fats. These increase the risk of disease. They lower the good cholesterol and raise the level of bad cholesterol. Bad fats are found in meat and whole- milk dairy products. Some plants are also high in bad fats (coconut and palm plants). Trans fats are found in hard (stick) margarines and many fast foods and commercially baked goods. Soft margarine sold in tubs has less trans fats and are safer to use. High blood cholesterol usually is a result of a diet high in saturated fat combined with an inactivelifestyle. In some cases, genetics plays a role in causing high cholesterol. The following tips willhelp you create healthy eating habits that will help lower your blood cholesterol level. Steps To Creating A Diet High In Good Fat, Low In Bad Fats (And Low In Cholesterol) Consult with your doctor before starting a low cholesterol diet or weight loss program. Learn to read nutrition labels and select appropriate portion sizes. When cooking, use plant-based unsaturated vegetable oils (sunflower, corn, soybean, canola, peanut, and olive oils). Avoid saturated oils found in animal products such as meat, dairy (whole-milk, cheese and ice cream), poultry skin, and egg yolks. Plants high in saturated oils include coconut and coconut oil, palm oil and palm kernel oil. If you eat meat, choose smaller portions and lean cuts. Replace meat with fish at least two times a week. Fish is an important source of the unsaturated fatcalled omega-3 fatty acids. This fat has potential to lower the risk of heart disease. Replace whole-milk dairy products with low-fat or nonfat products. Try soy products. Soy helps to reduce total cholesterol. Supplement your diet with protective fibers. Eat nuts, seeds, and whole grains rather than white rice and bread. These foods lower both cholesterol and triglyceride levels. (Triglycerides are another fat found in the blood.) Walnuts are one of the best sources of an omega-3 fatty acid. Eat plenty of fresh fruits and vegetables daily. Avoid fast foods and commercial baked goods. Assume they contain saturated fat unless labeled otherwise. ?? [id number] [facility], [address] [place] [address]. All rights reserved. This information is not intended as a substitute for professional medical care. Always follow your healthcare professional's instructions. This document has images extracted. Please consider using [employer] for all your patient education needs. Source: [facility] POWERCHART Document Id: [id number] E HAND documented in this encounter Miscellaneous Notes Miscellaneous - Felix Santos APRN, C.N.P. - 10/05/2015 8:11 AM CST Ambulatory Patient Summary [address] [id number] Visit Information Name: AMANDA MARCELO RHONDA [facility] Number: [id number] Current Date: 10/05/2015 08:11:55 Physicians Attending Provider: FELIX SANTOS CNP Primary Care Provider: FELIX SANTOS CNP MARCELINA MARCELOOLIVA ELLIS has been given the following list of [...] Tablet(s), Oral, once a day (at bedtime) Routed to [facility] [address] [place], [place] [id number] calcium-vitamin D (Calcium 600+D) 1 Tablet(s), Oral, three times a day ketoconazole topical (ketoconazole 2% topical shampoo) 1 wayne, Topical, 2 times a week magnesium citrate (magnesium citrate) 300 Milliliter, Oral, once metroNIDAZOLE topical (metroNIDAZOLE 0.75% topical gel) 1 [...] wayne, Topical, once a day (at bedtime) forehead verapamil (verapamil 180 mg/24 hours oral capsule, extended release) 1 cap, Oral, once a day for Reynaud's disease Stop Taking the Following Medications: Medication list as of 10-05-15 08:11 Attention: If you have any medications at [...] of emergency. Electronically Signed By: FELIX SANTOS CNP Signed On:05-OCT-2015 08:11:33 Your Allergies & Intolerances Substance Reaction Symptoms [...] local Clinic if further appointment detail needed. Diet: Low Cholesterol Cholesterol is needed by the body to build new cells and create certain hormones. There are two kinds of cholesterol in the blood: ?? Good cholesterol prevents fat deposits (plaque) from building up in the arteries. In this way it protects against heart disease and stroke. ?? Bad cholesterol stays in the body and sticks to artery partida. It may eventually block blood flow to the heart and brain causing heart attack or stroke. 75% of the bodys cholesterol is made in the liver. Only 25% of the bodys cholesterol comes from the food you eat. While the amount of cholesterol in your diet should be limited, it is the cholesterol that your body makes that creates the greatest disease risk. The biggest influence on cholesterol madeby your body is the mixture of fat types in your diet. There are two kinds of fats you can eat: ?? Good Fats are the unsaturated fats (mono-saturated and poly-unsaturated). They raise the level ofgood cholesterol and lower the level of bad cholesterol. Good fats are found in vegetable oils such as olive, sunflower, corn and soybean oils, and in nuts and seeds. ?? Bad Fats are the saturated fats (including foods high in cholesterol) and trans fats. These increase the risk of disease. They lower the good cholesterol and raise the level of bad cholesterol. Bad fats are found in meat and whole- milk dairy products. Some plants are also high in bad fats (coconut and palm plants). Trans fats are found in hard (stick) margarines and many fast foods and commercially baked goods. Soft margarine sold in tubs has less trans fats and are safer to use. High blood cholesterol usually is a result of a diet high in saturated fat combined with an inactivelifestyle. In some cases, genetics plays a role in causing high cholesterol. The following tips willhelp you create healthy eating habits that will help lower your blood cholesterol level. Steps To Creating A Diet High In Good Fat, Low In Bad Fats (And Low In Cholesterol) Consult with your doctor before starting a low cholesterol diet or weight loss program. Learn to read nutrition labels and select appropriate portion sizes. When cooking, use plant-based unsaturated vegetable oils (sunflower, corn, soybean, canola, peanut, and olive oils). Avoid saturated oils found in animal products such as meat, dairy (whole-milk, cheese and ice cream), poultry skin, and egg yolks. Plants high in saturated oils include coconut and coconut oil, palm oil and palm kernel oil. If you eat meat, choose smaller portions and lean cuts. Replace meat with fish at least two times a week. Fish is an important source of the unsaturated fatcalled omega-3 fatty acids. This fat has potential to lower the risk of heart disease. Replace whole-milk dairy products with low-fat or nonfat products. Try soy products. Soy helps to reduce total cholesterol. Supplement your diet with protective fibers. Eat nuts, seeds, and whole grains rather than white rice and bread. These foods lower both cholesterol and triglyceride levels. (Triglycerides are another fat found in the blood.) Walnuts are one of the best sources of an omega-3 fatty acid. Eat plenty of fresh fruits and vegetables daily. Avoid fast foods and commercial baked goods. Assume they contain saturated fat unless labeled otherwise. ?? [id number] [facility], [address] [place] [address]. All rights reserved. This information is not [...] if you dont have one. Go to [email or web address] and click on Create Your Account. Then, follow the directions to complete the online form. Youll be asked for your [facility] number which you can find at the top of this document. Your Goals/Additional instructions: This document has images extracted. Please consider using ProfStream for all your patient education needs. Source: [facility] POWERCHART Document Id: [id number] E HAND Miscellaneous - Felix Santos APRN, C.N.P. - 10/05/2015 8:11 AM CST Ambulatory Discharge Medication List [address], [place] [id number] Visit Information Name: AMANDA MARCELO [facility] Number: [id number] Visit Date: 10/05/2015 08:11:53 Attending Provider: FELIX SANTOS CNP Primary Care Provider: FELIX SANTOS CNP AMANDA MARCELO has been given the following [...] Tablet(s), Oral, once a day (at bedtime) [facility] [address] [facility] [place] [phone] calcium-vitamin D (Calcium 600+D) 1 Tablet(s), Oral, three times a day ketoconazole topical (ketoconazole 2% topical shampoo) 1 wayne, Topical, 2 times a week magnesium citrate (magnesium citrate) 300 Milliliter, Oral, once metroNIDAZOLE topical (metroNIDAZOLE 0.75% topical gel) 1 [...] wayne, Topical, once a day (at bedtime) forehead verapamil (verapamil 180 mg/24 hours oral capsule, extended release) 1 cap, Oral, once a day for Reynaud's disease Stop Taking the Following Medications: Medication list as of 10-05-15 08:11 Attention: If you have any medications at [...] of emergency. Electronically Signed By: FELIX SANTOS CNP Signed On:05-OCT-2015 08:11:33 Additional Information: Source: [facility] POWERCHART Document Id: [id number] E HAND Miscellaneous - Dori Zabala L.P.N. 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 Needs refill of atorvastatin. LMP Date : Hysterectomy Temperature Core : 37.2 DegC(Converted to: 99.0 DegF) Peripheral Pulse Rate : 78 /min Respiratory Rate : 20 /min Heart Rhythm : Regular Systolic Blood Pressure : 112 mmHg Diastolic Blood Pressure : 58 mmHg NIBP Mean : 76 mmHg BP Location : Right upper extremity Blood Pressure Cuff Size : Regular Height : 178 cm(Converted to: 5 ft 10 inch(es), 70 inch(es)) Actual Weight : 83 kg(Converted to: 183 lb 0 oz) Weight Source : Standing scale Dosing Weight Clinic : 83 kg Clinic BSA : 2.03 Body Mass Index : 26.2 kg/m2 DORI ZABALA LPN - 10/05/2015 7:53 TABLE HAND General Info Information Given By : Patient Preferred Communication Mode : Verbal Languages : Botswanan Is Patient Female and 13-50 no hysterectomy : DORI Bateman LPN - 10/05/2015 7:53 TABLE HAND Subjective Pain Symptoms : DORI Bateman LPN - 10/05/2015 7:53 TABLE HAND Dependent Habits Exposure to Tobacco Smoke : Other: Never Smoking Status : Never smoker Tobacco 2A : No DORI ZABALA LPN - 10/05/2015 7:53 TABLE HAND Caffeine Use Grid Caffeine Use : Current Type : Soft drinks Frequency : Occasionally DORI ZABALA AMI KAUR - 10/05/2015 7:53 TABLE HAND Recreational Drug Use Grid Drug Use : None DORI ZABALA NATASHA - 10/05/2015 7:53 TABLE HAND Source: [facility] POWERCHART Document Id: [id number] TABLE HAND!38 E HAND Miscellaneous - Dori Zabala L.P.N. - 10/05/2015 7:52 AM CST Health Assessment Health Assessment Entered On: 10/05/2015 7:53 TABLE HAND Performed On: 10/05/2015 7:52 TABLE HAND by ODRI ZAABLA LPN Health Assessment Complete Health Assessment Complete or Modified : Annual Health Assessment Annual Health Assessment Completed : Yes VJ DORIPAUL MUELLER LPN - 10/05/2015 7:52 TABLE HAND Nutrition Nutrition Risk Factors by History Adult : None EARNESTINEASHLEYDORI Weber AMI KAUR - 10/05/2015 7:52 TABLE HAND Functional Current Daily Living Assistance : None EARNESTINEJEFFCHANDANDORIPAUL MUELLER LPN - 10/05/2015 7:52 TABLE HAND Dependent Habits Exposure to Tobacco Smoke : Other: Never Smoking Status : Never smoker Tobacco 2A : No EARNESTINEASHLEYDORI Weber AMI KAUR - 10/05/2015 7:52 TABLE HAND Caffeine Use Grid Caffeine Use : Current Type : Soft drinks Frequency : Occasionally VJCHANDANDORIPAUL MUELLER LPN - 10/05/2015 7:52 TABLE HAND Alcohol Use : Yes EARNESTINEASHLEYCHANDAN WeberDORIPAUL MUELLER LPN - 10/05/2015 7:52 TABLE HAND Recreational Drug Use Grid Drug Use : None EARNESTINEASHLEYCHANDAN WeberDORIPAUL MUELLER LPN - 10/05/2015 7:52 TABLE HAND AUDIT Tool How Often Do You Have A Drink : Monthly or less How Many Drinks in a Day When Drinking : 1 or 2 Six or More Drinks On One Occassion : Never Audit Phase 1 Score : 1 DORI ZABALA AMI KAUR - 10/05/2015 7:52 TABLE HAND Psychosocial Domestic Abuse Concerns : None Behavioral Health Screen/Safety Assmt : No Denominational Preference : Unknown EARNESTINEASHLEYDORI Weber LPN - 10/05/2015 7:52 TABLE HAND Advance Directive Advanced Directives : No Advance Directive Additional Information : Yes DORI ZABALA LPN - 10/05/2015 7:52 TABLE HAND Educ Needs Learning Style Preference Adult Grid Patient : Printed materials, Verbal explanation Family : Verbal explanation, Printed materials DORI ZABALA LPN - 10/05/2015 7:52 TABLE HAND Source: [facility] POWERCHART Document Id: [id number] TABLE HAND!37 E HAND documented in this encounter Plan of Treatment Not on filedocumented as of this encounter Visit Diagnoses Not on filedocumented in this encounter Additional Health Concerns Assessment Noted Time PHQ-9 Depression Total Score: 3 09/15/2015 10:56 AM CS T documented as of this encounter
--- OUTSIDE RECORDS SUMMARY | 2022-06-30 08:31 | XMS_ITS | Encounter Summary ---
:1960 Author Organization [facility] Address [address] [place] [address] Care Team Providers Name Role Phone Allyson Resendiz APRN, C.N.P. Primary Care Provider [phone] Encounter Details Date Type Department Care Team Description 03/30/2017 Hospital Encounter HX [facility] Misty Bullock APRN, C.N.P., M.S.N. [address] [place] [address] (Wo rk) Social History Tobacco [...] place to sleep or slept in a nursing home (including now)? Sex Assigned at Date Recorded Not on file documented as of this encounter Last Filed Vital Signs Vital Sign Reading Time Taken Comments Blood Pressure 121/56 03/30/2017 3:44 PM CDT Pulse 87 03/30/2017 3:44 PM CDT Temperature - - Respiratory Rate 16 03/30/2017 3:44 PM CDT Oxygen Saturation - - Inhaled Oxygen Concentration - - Weight 77.6 kg (171 lb 1.2 oz) 03/30/2017 3:44 PM CDT Height 180 cm (5' 10.87) 03/30/2017 3:44 PM CDT Body Mass Index 23.95 03/30/2017 3:44 PM CDT documented in this encounter Medications at Time of Discharge Medication Sig Dispensed Refills Start Date End Date B complex-vitamins (B Take 1 tablet by 0 07/09/20 14 COMPLEX 1) tablet mouth daily. calcium Take 1 tablet by 0 04/04/2012 carbonate-vitamin D3 mouth daily. (CALCIUM 600 + D,3,) 600 mg calcium- 200 unit capsule FSH/FLX/PRIM/CUR/BOR/OM3 Take 1 capsule by 0 04/0 05/2014 ,6,9 5 (OMEGA 3-6-9 mouth daily. FATTY ACIDS ORAL) snicbbjiacro-Sa-qqin-min Take 1 tablet by 0 01/14 erals tablet mouth daily. UNABLE TO FIND daily. Amberen 0 09/30/2013 atorvastatin Take 1 tablet by 0 10/05/20162016 (for_LIPITOR) 20 mg mouth at bedtime. tablet ketoconazole Apply 1 application 0 09/30/2014 (for_NIZORAL) 2 % topically 2 (two) shampoo times a week. metroNIDAZOLE Apply 1 application 0 09/30/2014 (for_ROSADAN) 0.75 % gel topically every morning. tretinoin (for_RETIN-A) Apply 1 application 0 04/05/2019 0.025 % cream topically at bedtime. verapamil (for_VERELAN) Take 1 capsule by 0 10/0509/19/2017 180 mg 24 hr capsule mouth daily. Uses only in winter months documented as of this encounter Progress Notes Misty Bullock APRN, M.S.N., R.N. - 03/30/2017 3:38 PM CDT [id number] CHIEF COMPLAINT/REASON FOR VISIT Sinus infection. HISTORY OF PRESENT ILLNESS Amanda is a very pleasant 57-year-old female who presents for concerns with sinus infection. She states that for the past 4 days she has had some pain and sinus pressure. She started with left ear pain with a few little twinging and jabbing pain on the left ear. It has progressed to severe sinus pressure, particularly on the frontal sinuses and feels that her teeth are even painful. Even when she is eating and swallowing she feels some pain. She has a history of allergies and has been using the generic version of Zyrtec and a decongestant that she has tried to relieve some of the congestion. Does not really have anything coming out. Just seems to be more of a postnasal drainage which has caused some throat irritation. Denies any fevers chills, just feels as if she has a head cold and a lot of fullness in her head. She is otherwise doing well. Denies any other concerns today. MEDICATIONS Reviewed per ambulatory workflow in the EMR. ALLERGIES No known drug allergies. VITAL SIGNS Her temperature is 36.8, heart rate is 87, respiratory rate is 16, blood pressure is 121/56. Height is 180, weight is 77.6, BMI is 23.95. Pain intensity 10 out of 10. PHYSICAL EXAMINATION GENERAL: Alert and in no acute distress. Well groomed and appropriately dressed. SKIN: No rashes. EYES: Conjunctivae normal bilaterally. Pupils equal, round, and reactive to light and accommodation. EAR, NOSE, MOUTH AND THROAT: External ears normal bilaterally. TMs slightly distended bilaterally. No erythema. Hearing grossly normal. Nasal mucosa normal. Lips normal. No oropharyngeal exudate or erythema. The patient does have some evidence of postnasal drainage. Patient does also have some pain topalpation over the frontal maxillary sinus. NECK EXAM: Supple. LYMPHATIC EXAM: No anterior or posterior cervical lymphadenopathy. RESPIRATORY: Normal respiratory effort. Lungs clear to auscultation bilaterally. CARDIOVASCULAR: Normal rate. Regular rhythm. EXTREMITIES: No peripheral edema noted. ABDOMINAL EXAM: Soft, nontender, nondistended. No masses, hepatosplenomegaly or hernias noted. PSYCHIATRIC: Oriented to person, place and time. Memory is intact for remote and recent events. IMPRESSION/REPORT/PLAN Allergic sinusitis. PLAN: Discussed with patient that I feel her symptoms are most likely related to allergic sinusitis.She also has some serous otitis media present she feels related to her allergies. I recommend initiating Flonase nasal spray 2 sprays each nostril as well as discontinuing the decongestant and using Zyrtec up to 2 times a day. Given the severity of her pain, I did send a prescription for Augmentin to the pharmacy. Advised patient not to fill this unless her symptoms fail to improve or worsen. She does not have any evidence of anterior cervical lymphadenopathy. She will inform us if she has any concerning symptoms. Otherwise will start the antibiotics if her symptoms persist. Also advised patient touse ibuprofen or Tylenol as needed to help with her pain. PATIENT EDUCATION Ready to learn, no apparent learning barriers were identified; learning preferences include listening. Explained diagnosis and treatment plan; patient expressed understanding of the content. Misty Bullock APRN, M.S.N., R.N./rui Electronically Signed By: MISTY BULLOCK APRN, MSN, RN On: 03/31/2017 02:16 PM Source: [facility] MHSDOLBEYNONRADSYS Document Id: [id number] documented in this encounter Miscellaneous Notes Miscellaneous - Mignon Cedillo, L.P.N. 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 Intake/History Entered On: 03/30/2017 15:47 CDT Performed On: 03/30/2017 15:44 CDT by MIGNON CEDILLO [facility]NAL[facility] Intake Chief Complaint : possible sinus infection started with an ear ache (left ear) moved to sinus Temperature Oral : 36.8 DegC(Converted to: 98.2 DegF) Peripheral Pulse Rate : 87 /min Respiratory Rate : 16 /min Heart Rhythm : Regular Systolic Blood Pressure : 121 mmHg Diastolic Blood Pressure : 56 mmHg NIBP Mean : 78 mmHg BP Location : Right upper extremity Blood Pressure Cuff Size : Regular Height : 180 cm(Converted to: 5 ft 11 inch(es), 71 inch(es)) Actual Weight : 77.6 kg(Converted to: 171 lb 1 oz) Weight Source : Standing scale Dosing Weight Clinic : 77.6 kg Clinic BSA : 1.97 Body Mass Index : 23.95 kg/m2 MIGNON CEDILLO [facility] - 03/30/2017 15:44 CDT General Info Information Given By : Patient Preferred Communication Mode : Verbal Languages : Colombian Is Patient Female and 13-50 no hysterectomy : No MIGNON CEDILLO [facility] 03/30/2017 15:44 CDT Subjective Pain Symptoms : Yes MIGNON CEDILLO [facility] - 03/30/2017 15:44 CDT Pain Scale Pain Scale Verbal 0-10 : Open MIGNON CEDILLO [facility] 03/30/2017 15:44 CDT Pain Pain Assessment Grid Pain 1 Location : Sinus Intensity : 10 MIGNON CEDILLO [facility] 03/30/2017 15:44 CDT Dependent Habits Exposure to Tobacco Smoke : Other: Never Smoking Status : Never smoker Tobacco 2A : No Tobacco Use/Currently Using : No Tobacco Use/Last 30 Days : No Tobacco Use/Last 12 months : No MIGNON CEDILLO [facility] 03/30/2017 15:44 CDT Caffeine Use Grid Caffeine Use : Current Type : Soft drinks Frequency : Occasionally MIGNON CEDILLO [facility] - 03/30/2017 15:44 CDT Recreational Drug Use Grid Drug Use : None MIGNON CEDILLO [facility] 03/30/2017 15:44 CDT Source: [employer] Document Id: [id number]!47 documented in this encounter Plan of Treatment Not on filedocumented as of this encounter Visit Diagnoses Not on filedocumented in this encounter Care Teams Guitar Maker Hand Relationship Specialty Start Date End Date Allyson Resendiz, DOCK ATTENDANT, C.N.P. PCP - General [address] [place] [address] documented as of this encounter
--- OUTSIDE RECORDS SUMMARY | 2022-06-30 08:31 | XMS_ITS | Encounter Summary ---
:1960 Author Organization [facility] Address [address] [place] [address] Care Team Providers Name Role Phone Allyson Resendiz APRN, C.N.P. Primary Care Provider [phone] Reason for Visit Reason Comments Pre-op Exam Colnonoscopy on 09/25/17. Dr Karol arias at [facility]. Outpatient (Routine) - Closed Specialty Diagnoses / Procedures Referred By Contact Refer red To Contact Family Medicine Allyson Resendiz APRN, [facility] C.N.P. [address] [place] [address] Referral ID Status Reason Start Date Expiration Date Visits Requ ested Visits Authorized [id number] Closed 09/05/2017 03/04/2018 1 1 Encounter Details Date Type Department Care Team Description 09/19/2017 Office Visit Department of Family Allyson Resendiz, Pre operative Exam (Primary Dx); [facility] ASHIA, C.N.P. Hypercholesterolemia; Clinic, in [place], [address] Nodule Thyroid; [place], [place] Raynaud's Disease [address] [address] [place], [place] [phone] [address] (Work) [phone] Social History Tobacco Use Types Packs/Day Years [...] or relatives? How often do you attend uatsdin or tenriism More than 4 time s per year 02/02/2021 services? Do you belong to any clubs or organizations No 02/02/2021 such as uatsdin groups, unions, fraternal or athletic groups, or [...] or slept in a penitentiary (including now)? Sex Assigned at Date Recorded Not on file documented as of this encounter Last Filed Vital Signs Vital Sign Reading Time Taken Comments Blood Pressure 116/68 09/19/2017 8:25 AM SIDE SPLITTER Pulse 80 09/19/2017 8:25 AM SIDE SPLITTER Temperature 36.8 ??C (98.2 ??F) 09/19/2017 8:25 AM SIDE SPLITTER Respiratory Rate 16 09/19/2017 8:25 AM SIDE SPLITTER Oxygen Saturation 99% 09/19/2017 8:25 AM SIDE SPLITTER Inhaled Oxygen Concentration - - Weight 82.7 kg (182 lb 6.9 oz) 09/19/2017 8:25 AM SIDE SPLITTER Height 177 cm (5' 9.69) 09/19/2017 8:25 AM SIDE SPLITTER Body Mass Index 26.41 09/19/2017 8:25 AM SIDE SPLITTER documented in this encounter Patient Instructions Patient InstructionsAllyson Resendiz APRN, C.N.P. - 09/19/2017 8:15 AM SIDE SPLITTER It was a pleasure seeing you in the clinic! My goal is to always provide excellent care for my patients. If you receive a clinic survey in the mail and felt you received great care, I would sure appreciate you filling it out and sending it in. Thanks and take care! SPLITTER AttachmentsThe following attachments cannot be sent through Care Everywhere. Eating to Improve Your Cholesterol and Triglyceride Levels (Korean)documented in this encounter H&P Notes Allyson Resendiz, ASHIA, C.N.P. - 09/19/2017 8:15 AM CST SUBJECTIVE CHIEF COMPLAINT: Chief Complaint Patient presents with ??? Pre-op Exam Colnonoscopy on 09/25/17. Dr. Blas doing at [facility]. . Requesting provider: Dr. Blas Diagnosis: Screening colonoscopy Planned Procedure: Colonoscopy Planned Date of Procedure: 09/25/2017 Facility/Hospital for Procedure: [facility] HISTORY OF PRESENT ILLNESS: Amanda is being seen at the request of Dr. lee for medical evaluation prior to surgery. She is scheduled for colonoscopy on 09/25/2017 at [facility]. She has hyperlipidemia stable on atorvastatin without adverse effects. Raynaud's is stable on verapamil 180 mg daily in the winter months. Thyroid nodule, due for ultrasound. REVIEW OF SYSTEMS: GENERAL: No weight gain, [...] ENDOCRINE: No excessive thirst, no excessive bruising ALLERGIES: No Known Allergies MEDICATIONS: Current Outpatient Prescriptions: ??? atorvastatin (for_LIPITOR) 20 mg tablet, Take 1 tablet by mouth at bedtime., Disp: , Rfl: ??? B complex-vitamins (B COMPLEX 1) tablet, [...] daily. Alejandra, Disp: , Rfl: ??? verapamil (for_VERELAN) 180 mg 24 hr capsule, Take 1 capsule (180 mg total) by mouth daily. Usesonly in winter months, Disp: 90 capsule, Rfl: 3 ??? ketoconazole (for_NIZORAL) 2 % shampoo, Apply 1 application topically 2 (two) times a week., Disp: , Rfl: ??? metroNIDAZOLE (for_ROSADAN) 0.75 % gel, Apply 1 application topically every morning., Disp: , Rfl: ??? tretinoin (for_RETIN-A) 0.025 % cream, Apply 1 application topically at bedtime., Disp: , Rfl: PAST MEDICAL/SURGICAL HISTORY: Past Medical History: Diagnosis Date ??? Acne Rosacea 09/30/2014 ??? Hypercholesterolemia 03/23/2010 ??? Nodule Thyroid 04/28/[address] ??? Raynaud's Disease 03/23/2010 Past Surgical History: Procedure Laterality Date ??? COLONOSCOPY 06/14/2012 ??? COLPOSCOPY 03/31/2010 ??? LAPAROSCOPIC TOTAL HYSTERECTOMY N/A 07/29/2014 Total laparoscopic hysterectomy ??? REMOVAL OF OVARIAN CYST N/A 03/30/1987 Ovarian cystectomy ??? VARICOSE VEIN STRIPPING N/A 03/30/2006 Varicose vein stripping FAMILY HISTORY: Family History Problem Relation Age of Onset ??? Brain Tumor Mother ??? Hyperlipidemia Mother ??? Skin cancer Father SOCIAL HISTORY: Social History Substance Use Topics ??? Smoking status: Never Smoker ??? Smokeless tobacco: Never Used ??? Alcohol use Yes Comment: occassionally OBJECTIVE VITALS: Vitals: 09/19/17 0825 BP: 116/68 Pulse: 80 Resp: 16 Temp: 36.8 ??C SpO2: 99% PHYSICAL EXAM: GENERAL: In general, the patient is a pleasant female who appears to be stated age. SKIN: Without lesion. EYES: PERRLA, EOMI. Conjunctiva and lids normal. ENT: Tympanic membranes clear bilaterally. Nasal mucosa without erythema or congestion. Mouth without erythema or exudate. LYMPH NODES: Neck: Supple, without adenopathy, no thyromegaly. Carotid pulses are equal bilaterally. THYROID: No thyromegaly. PERIPHERAL VESSELS: Femoral, dorsal, pedal and posterior tibial pulses are equal. HEART: Regular rate and rhythm without murmur. LUNGS: Clear to auscultation, there is good inspiratory effort. ABDOMEN: Soft, nontender, no palpable mass, no hepatosplenomegaly. SPINE: Back straight without CVA tenderness. No cervical, thoracic or lumbar tenderness. JOINTS: Normal range of motion. EXTREMITIES: Warm, dry, no cyanosis or peripheral edema. MENTAL: Alert and oriented times three. Grossly nonfocal. NEUROLOGIC: Reflexes are +2 and symmetrical. OBSTRUCTIVE SLEEP APNEA SCREEN: Score: 2 ASSESSMENT / PLAN #1 Preoperative Exam Patient's active problems diagnostically and therapeutically optimized for planned procedure. Do not use any aspirin, nonsteroidal antiinflammatory medications or fish oil prior to surgery. NPO after midnight the night before surgery. Restart all medications after surgery. Appropriate paperwork will be completed and faxed to the hospital. All questions were answered. Class [place] [employer]est[employer] 2. #2 Hypercholesterolemia Stable on atorvastatin without adverse effects. #3 Nodule Thyroid Stable, due for ultrasound. We will schedule. #4 Raynaud's Disease Stable on verapamil 180 mg daily in the winter months. SPLITTER documented in this encounter Plan of Treatment Not on filedocumented as of this encounter Procedures Procedure Name Priority Date/Time Associated Diagnosis Comme nts LIPID PANEL, S Routine 09/19/2017 9:02 Hypercholesterolemia Re sults for this AM SIDE SPLITTER procedure are i n the results section. ASPARTATE Routine 09/19/2017 9:02 Hypercholesterolemia Resu lts for this AMINOTRANSFERASE (AST), AM SIDE SPLITTER proc edure are in S/P the results section. documented in this encounter Results US Head Neck Soft Tissue (10/03/2017 3:32 PM SIDE SPLITTER) Anatomical Region Laterality Modality Head and Neck N/A Ultrasound Specimen (Source) Anatomical Collection Method Collection Time Re ceived Time Location / / Volume Laterality 10/03/2017 4:02 PM SIDE SPLITTER Impressions 10/03/2017 4:07 PM SIDE SPLITTER IMPRESSION: 1. Stable multiple thyroid nodules. ?? Narrative 10/03/2017 4:07 PM SIDE SPLITTER EXAM: US HEAD NECK SOFT TISSUE COMPARISON: Ultrasound 05/07/15 FINDINGS: The right thyroid lobe measures: 6.1 x 2 .0 x 2.1 cm The left thyroid lobe measures: 5.3 x 1. 5 x 2.2 cm The isthmus measures: 0.[address] Thyroid parenchymal evaluation shows: Mu ltiple thyroid nodules. A dominant nodule in the right inferior pole towards the isthmus measures unchanged at 3.0 x 2.3 x 2.0 cm. This pr edominantly solid (0) nodule is hypoechoic (1) and parallel (not taller than wide) (0) with smooth margins (0) and no echogenic foci (0). The ultrasoun d score is 1. Based on stability, the nodule has low suspicion for malignancy (1-10%). Several other smaller thyroid nodules ar e stable. Other: No pathologically enlarged or luz marina picious lymph nodes are seen in the vicinity of the thyroid. The thyroid nodule descriptions and leyda gories are based on the Thyroid Nodule Care Process Model established by the [facility] [place]. [email or web address]-answers/[email or web address] Procedure Note Demetrius Quiñones M.D. - 10/03/2017 EXAM: US HEAD NECK SOFT TISSUE COMPARISON: Ultrasound 05/07/15 FINDINGS: The right thyroid lobe measures: 6.1 x 2 .0 x 2.1 cm The left thyroid lobe measures: 5.3 x 1. 5 x 2.2 cm The isthmus measures: 0.[address] Thyroid parenchymal evaluation shows: Mu ltiple thyroid nodules. A dominant nodule in the right inferior pole towards the isthmus measures unchanged at 3.0 x 2.3 x 2.0 cm. This pr edominantly solid (0) nodule is hypoechoic (1) and parallel (not taller than wide) (0) with smooth margins (0) and no echogenic foci (0). The ultrasoun d score is 1. Based on stability, the nodule has low suspicion for malignancy (1-10%). Several other smaller thyroid nodules ar e stable. Other: No pathologically enlarged or luz marina picious lymph nodes are seen in the vicinity of the thyroid. The thyroid nodule descriptions and leyda gories are based on the Thyroid Nodule Care Process Model established by the [facility] [place]. [email or web address]-answers/[email or web address] IMPRESSION: 1. Stable multiple thyroid nodules. Allyson Resendiz APRN, C.N.P. IMG US PROCEDURES AST (Aspartate Aminotransferase) (09/19/2017 9:02 AM SIDE SPLITTER) [facility] gist Method Time Signature Aspartate 28 8 - 43 09/19/2017 [facility] Aminotransferase U/L 12:00 PM SIDE SPLITTER [place] (AST)[facility] Specimen Anatomical Collection Method Collection Time Receive d Time (Source) Location / / Volume Laterality Blood (Blood, 09/19/2017 9:02 AM 09/19/20 17 Venous) SIDE SPLITTER 11:03 AM SIDE SPLITTER Allyson Resendiz APRN, C.N.P. LAB BLOOD ADD-ON Performing Organization Address City/State/ZIP Code Phon e Number [facility] [address] [place] [address] LAB (ABNORMAL) Lipid Panel (09/19/2017 9:02 AM SIDE SPLITTER) athologist Signature Cholesterol, 220 (H) mg/dL 09/19/2017 [facility] Total 12:00 PM [facility] LAB Comment: ----REFERENCE VALUE---- Desirable: < 200 Borderline high: 200 - 239 High: > or = 240 Triglycerides 80 mg/dL 09/19/2017 12:00 PM SIDE SPLITTER [facility] [place] LAB Comment: ----REFERENCE VALUE---- Normal: <150 Borderline high: 150-199 High: 200-499 Very high: > or =500 Cholesterol, HDL, S 77 >=50 mg/dL 09/19/2017 12:00 PM SIDE SPLITTER [facility] [place] [facility] Calculated LDL 127 mg/dL 09/19/2017 12:00 PM SIDE SPLITTER [facility] [place] LAB Comment: ----REFERENCE VALUE---- Desirable: <100 Above Desirable: 100-129 Borderline high: 130-159 High: 160-189 Very high: > or =190 Cholesterol, Non-HDL, 143 mg/dL 09/19/2017 12:00 P M SIDE SPLITTER [facility] [place] [facility] B Comment: ----REFERENCE VALUE---- Desirable: <130 Above Desirable: 130-159 Borderline high: 160-189 High: 190-219 Very high: > or =220 Specimen Anatomical Collection Method Collection Time Receive d Time (Source) Location / / Volume Laterality Blood (Blood, 09/19/2017 9:02 AM 09/19/20 17 Venous) SIDE SPLITTER 11:03 AM SIDE SPLITTER Allyson Resendiz APRN, C.N.P. LAB BLOOD ADD-ON Performing Organization Address City/State/ZIP Code Phon e Number [facility] [address] [place] [address] LAB documented in this encounter Visit Diagnoses Diagnosis Preoperative Exam - Primary Hypercholesterolemia Nodule Thyroid Raynaud's Disease Nodule Thyroid documented in this encounter Care Teams Radiologic Technology Teacher Relationship Specialty Start Date End Date Allyson Resendiz APRN, C.N.P. PCP - General 03/30/17 [address], [place] [address] documented as of this encounter
--- OUTSIDE RECORDS SUMMARY | 2022-06-30 08:31 | XMS_ITS | Encounter Summary ---
:1960 Author Organization [facility] Address [address] [place] [address] Care Team Providers Name Role Phone Felix Santos APRN, C.N.P. Primary Care Provider [phone] Encounter Details Date Type Department Care Team Description 05/04/2017 Hospital Encounter HX [facility] FAMILYPRA Braeden Whalen M.D. [address] [place], [place] [phone] (Wo rk) Social History [...] How often do you attend gnosticist or jewish More than 4 time s [...] Reading Time Taken Comments Blood Pressure 112/58 05/04/2017 3:23 PM CDT Pulse 64 05/04/2017 3:23 PM CDT Temperature - - Respiratory Rate 18 05/04/2017 3:23 PM CDT Oxygen Saturation - - Inhaled Oxygen Concentration - - Weight 78.9 kg (173 lb 15.1 oz) 05/04/2017 3:23 PM CDT Height 180 cm (5' 10.87) 05/04/2017 3:23 PM CDT Body Mass Index 24.35 05/04/2017 3:23 PM CDT documented in this encounter Medications [...] (OMEGA 3-6-9 mouth daily. FATTY ACIDS ORAL) yrildmohudyt-Nw-awdj-min Take 1 tablet by 0 01/14 erals [...] documented as of this encounter Progress Notes Braeden Clement M.D. - 05/04/2017 2:58 PM CDT [id number] CHIEF COMPLAINT/ REASON FOR VISIT Facial pain with pressure and bump on gums. HISTORY OF PRESENT ILLNESS Amanda is a 57 year old female who presents to the clinic today for above concerns. She was seen at the [facility] in [place] on 03/30/2017 for sinus pain and pressure. She was treated for sinusitis with a 7-day course of Augmentin. Amanda completed the course of antibiotics as prescribed however continues to have pain and fullness over her face. On 05/02/2017 she noticed a bump on her gums. Amanda noticed this when she was brushing her teeth and the bump looked similar to a white head. She is not having any dental pain. The patient denies any additional questions or concerns at this time. MEDICATIONS Post-visit Medication Reconciliation Reviewed and are as outlined in the EMR includin. Penicillin V Potassium 500 mg, 1 tablet, PO, b.i.d. for 10 days, prescribed today. ALLERGIES No known drug allergies. SYSTEMS REVIEW Please see HPI for pertinent positives, otherwise rest of ROS negative. PAST MEDICAL/SURGICAL HISTORY Reviewed and updated per the EMR dated 05/04/2017. 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 She is from [place], [place]. She moved to [place] in 2008when she got . PREVENTIVE SERVICES Tobacco use: none, never smoker. VITAL SIGNS HEIGHT: 180 cm. WEIGHT: 78.9 kg. BMI: 24.35 kg/m2. TEMP: 36.8 Deg C. PULSE: 64 /min. RESP: 18 /min. SYSTOLIC: 112 mmHg. DIASTOLIC: 58 mmHg. PHYSICAL EXAMINATION GENERAL: Patient is alert and oriented times three, in no acute distress, good hygiene and is dressed appropriately. MOUTH: On the gumline, just above the 4th upper right tooth (4th from midline) is a yellowish soft nodule. ENT: Tympanic membranes are normal bilaterally. Oropharynx is without erythema or exudate. Nasal mucosa is without injection. Tenderness over frontal sinuses and maxillary sinuses, right greater than left. NECK: Is without lymphadenopathy. HEART: Regular rate and rhythm without murmur. LUNGS: Clear to auscultation. IMPRESSION/REPORT/PLAN 1. Probable mucocele possible intraoral abscess. As I am unable to rule out abscess prescription wasgiven today for Penicillin, as above. If this does not improve I recommended that she have this evaluated by her dentist. 2. Follow up. The patient will contact the clinic with any new or worsening symptoms. This document serves as a record of services personally performed by Braeden Jiang MD. It was created on their behalf by Bee Mohan, a trained medical legal investigator. The creation of this record is based on the scribe's personal observations and the provider's statements to them. This document has been trudy cked and approved by the attending provider. Braeden Maria M.D./ananth Electronically Signed By: BRAEDEN CLEMENT MD On: 05/04/2017 10:41 PM Source: [facility] MHSDOLBEYNONRADSYS Document Id: [id number] documented in this encounter Nursing Notes Hai Zhong L.PKarolN. - 07/11/2017 9:06 AM CDT colonoscopy Second attempt made to schedule colonoscopy Electronically Signed By: HAI ZHONG LPN On: 07/11/2017 09:06 AM Source: [facility] POWERCHART Document Id: [id number] documented in this encounter Miscellaneous Notes Miscellaneous - Mel Baker - 08/03/2017 10:04 AM CDT A message from your Primary Care Provider and your Care Team From: MEL BAKER LPN To: AMANDA MARCELO Sent: 08/03/2017 10:04:16 CDT Subject: A message from your Primary Care Provider and your Care Team Amanda Marcelo [facility] Number: [phone] [id number] [place] [address] : 1960 Mrs. Marcelo, We have developed a six-month overview of preventive and recommended services that apply to your unique health care needs. Some may be past due or may be coming due in the next three months. If youhave already scheduled any or all of these services, thank you. We recognize that this may or may not include all of your individualized health care needs; however, we are happy to help you with any and all primary care concerns you may have. Coming Due (in the next three months) Fasting Lipid Panel (on or soon after Oct 04, 2017) Mammogram for Breast Cancer Screening (on or soon after Oct 05, 2017) It may be possible to bundle some of the above services together to make your visit with us more convenient. Please call [phone] to schedule services that are past due or that may shortly become due (thank you if you have already done so). We will follow up in three to six months should you have more services to schedule at that time. If you have already received any of the listed past due or upcoming services outside of [facility], please call [phone] to add them to your medical record. You may want to consider contacting your health insurance company to make sure these services are covered and find out if there will be any iyi-cv-hrhxgg expense. If you have any questions about the services listed above, or if you are no longer receiving care from [facility], please contact us at [phone]. Thank you for partnering to provide you with the best care possible. Thank you for choosing the Felix Santos APRN, C.N.P. care team for your health care needs! You are receiving this notice based on [facility]'s recommended standard for preventive care and ongoing condition-specific services you may need. If you have completed or do not believe you need these services, please contact your provider or care team to discuss this further. Source: [facility] POWERCHART Document Id: [id number] Miscellaneous - Braeden Clement M.D. - 05/04/2017 10:38 PM CDT Ambulatory Discharge Medication List [address] [id number] Visit Information Name: AMANDA MARCELO [facility] Number: [id number] Current Date: 05/04/2017 22:38:32 Attending Provider: BRAEDEN CLEMENT MD Primary Care Provider: FELIX SANTOS APRN [facility] AMANDA MARCELO has been given the following [...] capsule) 1 cap, Oral, once a day penicillin V potassium (penicillin V potassium 500 mg oral tablet) 1 Tablet(s), Oral, two times a day x 10 day(s) New Routed to [address] [id number] tretinoin topical (tretinoin 0.025% topical cream) 1 [address], Topical, once a day (at bedtime) wash hands before applying verapamil (verapamil 180 mg/24 hours oral capsule, extended release) 1 cap, Oral, once a day for Reynaud's disease Stop Taking the Following Medications: Medication list as of 05-04-17 22:38 Attention: If you have any medications at home that are not on this list, DO NOT take them until youcontact your provider for clarification. Give a copy of your medication list to your primary care provider. Update your medication list any time medications or doses are changed and carry your medication list at all times in case of emergency. Electronically Signed By: BRAEDEN CLEMENT MD Signed On:04-MAY-2017 22:38:29 Additional Information: Source: [facility] POWERCHART Document Id: [id number] Miscellaneous - Braeden Clement M.D. - 05/04/2017 10:38 PM CDT Ambulatory Patient Summary [address] [id number] Visit Information Name: RAHEEMKYLAHAMANDA [facility] Number: [id number] Current Date: 05/04/2017 22:38:33 Physicians Attending Provider: BRAEDEN CLEMENT MD Primary Care Provider: FELIX SANTOS APRN [facility] FOZIA AMANDA ELLIS has been given the following list [...] capsule) 1 cap, Oral, once a day penicillin V potassium (penicillin V potassium 500 mg oral tablet) 1 Tablet(s), Oral, two times a day x 10 day(s) New Routed to [place] [address] [place], [place] [id number] tretinoin topical (tretinoin 0.025% topical cream) 1 [address], Topical, once a day (at bedtime) wash hands before applying verapamil (verapamil 180 mg/24 hours oral capsule, extended release) 1 cap, Oral, once a day for Reynaud's disease Stop Taking the Following Medications: Medication list as of 05-04-17 22:38 Attention: If you have any medications at home that are not on this list, DO NOT take them until youcontact your provider for clarification. Give a copy of your medication list to your primary care provider. Update your medication list any time medications or doses are changed and carry your medication list at all times in case of emergency. Electronically Signed By: BRAEDEN CLEMENT MD Signed On:04-MAY-2017 22:38:29 Your Allergies & Intolerances Substance Reaction Symptoms [...] local Clinic if further appointment detail needed. Consider Using Patient Online Services Patient Online [...] if you dont have one. Go to [email or web address] and click on Create Your Account. Then, follow the directions to complete the online form. Youll be asked for your [facility] number which you can find at the top of this document. Your Goals/Additional instructions: Source: [facility] POWERCHART Document Id: [id number] Miscellaneous - Dom Frank C.M.A. - 05/04/2017 3:23 PM CDT Adult Dump Grader Intake/History Adult Dump Grader Intake/History Entered On: 05/04/2017 15:27 CDT Performed On: 05/04/2017 15:23 CDT by DOM FRANK [facility] Intake Chief Complaint : Sores in mouth x 2 days ago and possible sinus infection Temperature Core : 36.8 DegC(Converted to: 98.2 DegF) Peripheral Pulse Rate : 64 /min Respiratory Rate : 18 /min Heart Rhythm : Regular Systolic Blood Pressure : 112 mmHg Diastolic Blood Pressure : 58 mmHg NIBP Mean : 76 mmHg BP Location : Left upper extremity Blood Pressure Cuff Size : Regular Height : 180 cm(Converted to: 5 ft 11 inch(es), 71 inch(es)) Actual Weight : 78.90 kg(Converted to: 173 lb 15 oz) Weight Source : Standing scale Dosing Weight Clinic : 78.9 kg Clinic BSA : 1.99 Body Mass Index : 24.35 kg/m2 DOM FRANK [facility] - 05/04/2017 15:23 CDT General Info Information Given By : Patient Preferred Communication Mode : Verbal Languages : Cameroonian Is Patient Female and 13-50 no hysterectomy : No DOM FRANK [facility] - 05/04/2017 15:23 CDT Subjective Pain Symptoms : Yes DOM FRANK [facility] - 05/04/2017 15:23 CDT Pain Scale Pain Scale Verbal 0-10 : Open DOM FRANK [facility] 05/04/2017 15:23 CDT Pain Pain Assessment Grid Pain 1 Location : Frontal Laterality : Bilateral Intensity : 4 DOM FRANK [facility] - 05/04/2017 15:23 CDT Dependent Habits Exposure to Tobacco Smoke : Other: Never Smoking Status : Never smoker Tobacco 2A : No Tobacco Use/Currently Using : No Tobacco Use/Last 30 Days : No Tobacco Use/Last 12 months : No ZACDOM [facility] - 05/04/2017 15:23 CDT Caffeine Use Grid Caffeine Use : Current Type : Soft drinks Frequency : Occasionally DOM FRANK [facility] - 05/04/2017 15:23 CDT Recreational Drug Use Grid Drug Use : None DOM FRANK [facility] 05/04/2017 15:23 CDT Source[facility] Document Id: [id number] documented in this encounter Plan of Treatment Not on filedocumented as of this encounter Visit Diagnoses Not on filedocumented in this encounter Care Teams Rope Making Machine Operator Relationship Specialty Start Date End Date Felix Santos APRN, C.N.P. PCP - General 03/30/17 [address] [place] [phone] documented as of this encounter
--- OUTSIDE RECORDS SUMMARY | 2022-06-30 08:31 | XMS_ITS | Encounter Summary ---
:1960 Author Organization [facility] Address [address] [place] [address] Care Team Providers Name Role Phone Unavailable Primary Care Provider Unavailable Encounter Details Date Type Department Care Team Description 10/02/2015 Hospital Encounter HX [facility] Allyson Resendiz, Alejandra DE LA GARZA, C.N.P. [address] [place], [place] [phone] (Wo rk) Social History [...] or relatives? How often do you attend baptism or shinto More than 4 time s per year 02/02/2021 services? Do you belong to any clubs or organizations No 02/02/2021 such as baptism groups, unions, fraternal or athletic groups, or [...] - Height 178 cm (5' 10.08) 10/02/2015 8:25 AM ACID CUTTER Body Mass Index - - documented in [...] (OMEGA 3-6-9 mouth daily. FATTY ACIDS ORAL) pvowfadxkztr-Qy-bamj-min Take 1 tablet by 0 01/14 erals [...] Name Priority Date/Time Associated Diagnosis Comme nts HCV AB W/REFLEX TO Routine 10/02/2015 8:44 AM Res ults for this HCV PCR, S ACID CUTTER procedure are i n the results section. documented in this encounter Results HCV Ab w/Reflex to HCV PCR, S (10/02/2015 8:44 AM ACID CUTTER) athologist Signature HXHCV Ab Negative Negative POWERCHART [facility] Comment: Ebwhyk-hr-oinhnj ratio is <1.00. Test Performed by: [place] [address] Store Clerk Checker: Oscar Minor II, M.D., Ph.D. Specimen (Source) Anatomical Collection Method Collection Time Re ceived Time Location / / Volume Laterality Blood 10/02/2015 8:44 AM ACID CUTTER Allyson Resendiz APRN C.N.P. LAB MICROBIOLOGY - BLOOD O RDERABLES Performing Organization Address City/State/ZIP Code Phon e Number POWERCHART documented in this encounter Visit Diagnoses Not on filedocumented in this encounter Additional Health Concerns Assessment Noted Time PHQ-9 Depression Total Score: 3 09/15/2015 10:56 AM CS T documented as of this encounter
--- OUTSIDE RECORDS SUMMARY | 2022-06-30 08:31 | XMS_ITS | Encounter Summary ---
:1960 Author Organization [facility] Address [address] [place] [address] Care Team Providers Name Role Phone Allyson Resendiz APRN, C.NKarolPKarol Primary Care Provider [phone] Encounter Details Date Type Department Care Team Description 10/03/2017 Hospital Encounter Department of Allyson Resendiz [facility] Thyroid Radiology in [place], [place] [address] [facility] [address] [phone] Social History Tobacco Use Types Packs/Day Years [...] How often do you attend sikhism or hoahaoism More than 4 time s [...] (OMEGA 3-6-9 mouth daily. FATTY ACIDS ORAL) ujpvwklrklcx-Wn-cfnp-mi Take 1 tablet by 0 2009 nerals [...] Procedure Name Priority Date/Time Associated Comments Diagnosis US HEAD NECK SOFT RAD - Routine 10/03/2017 3:32 Nodule Thyroid Resu lts for this TISSUE (most inpatients PM ORNAMENTER procedure a re in and all the results outpatients) section. documented in this encounter Results US Head Neck Soft Tissue (10/03/2017 3:32 PM ORNAMENTER) Anatomical Region Laterality Modality Head and Neck N/A Ultrasound Specimen (Source) Anatomical Collection Method Collection Time Re ceived Time Location / / Volume Laterality 10/03/2017 4:02 PM ORNAMENTER Impressions 10/03/2017 4:07 PM ORNAMENTER IMPRESSION: 1. Stable multiple thyroid nodules. ?? Narrative 10/03/2017 4:07 PM ORNAMENTER EXAM: US HEAD NECK SOFT TISSUE COMPARISON: [...] Nodule Care Process Model established by the [facility] [place]. [email or web address].[email or web address]/top ic/clinical-answers/[email or web address]/sec-203 7778 Procedure Note Demetrius Quiñones M.D. - [...] Nodule Care Process Model established by the [facility] [place]. [email or web address]://askmayoexpert.[email or web address].org/top ic/clinical-answers/cnt-53737816/sec-203 7778 IMPRESSION: 1. Stable multiple thyroid nodules. Allyson Resendiz APRN C.N.PKarol IMG US PROCEDURES documented in this encounter Visit Diagnoses Diagnosis Nodule Thyroid documented in this encounter Care Teams Stock Counter Relationship Specialty Start Date End Date Allyson Resendiz APRN, C.N.P. PCP - General 03/30/17 [address], [place] [address] documented as of this encounter
--- OUTSIDE RECORDS SUMMARY | 2022-06-30 08:31 | XMS_ITS | Encounter Summary ---
:1960 Author Organization [facility] Address [address] [place] [address] Care Team Providers Name Role Phone Unavailable Primary Care Provider Unavailable Encounter Details Date Type Department Care Team Description 10/03/2016 Hospital Encounter HX [facility] Felix Santos, Alejandra DE LA GARZA, C.N.P. [address] [place], [place] [phone] (Wo rk) Social History [...] or relatives? How often do you attend zoroastrianism or restoration More than 4 time s per year 02/02/2021 services? Do you belong to any clubs or organizations No 02/02/2021 such as zoroastrianism groups, unions, fraternal or athletic groups, or [...] place to sleep or slept in a alf (including now)? Sex Assigned at Date Recorded Not on file documented as of this encounter Last Filed Vital Signs Vital Sign Reading Time Taken Comments Blood Pressure - - Pulse - - Temperature - - Respiratory Rate - - Oxygen Saturation - - Inhaled Oxygen Concentration - - Weight - - Height 177 cm (5' 9.69) 10/03/2016 8:24 AM MATRIX BATH ATTENDANT Body Mass Index - - documented in [...] (OMEGA 3-6-9 mouth daily. FATTY ACIDS ORAL) olfmdqkpcquv-Ga-utrk-min Take 1 tablet by 0 01/14 erals [...] at bedtime. documented as of this encounter Miscellaneous Notes Miscellaneous - Felix Santos APRN, C.N.P. - 10/03/2016 12:53 PM MATRIX BATH ATTENDANT From: FELIX SANTOS APRN WOOL HAT FORMING MACHINE TENDER To: YAMEL MARCELO Sent: 10/03/2016 12:53:27 MATRIX BATH ATTENDANT [facility] Labs are stable. I'll see you at your upcoming appointment. Felix Results: Date Result Name Ind Value Ref Range 10/03/2016 08:37 Sodium Lvl 144 mmol/L (135 - 145) 10/03/2016 08:37 Potassium Lvl (H) 5.6 mmol/L (3.6 - 5.2) 10/03/2016 08:37 Chloride 104 mmol/L (98 - 107) 10/03/2016 08:37 CO2 29 mmol/L (22 - 29) 10/03/2016 08:37 AGAP 11 mmol/L (7 - 15) 10/03/2016 08:37 Glucose Fasting (H) 106 mg/dL (70 - 99) 10/03/2016 08:37 Creatinine 0.87 mg/dL (0.60 - 1.10) 10/03/2016 08:37 EGFR (MDRD) >60 mL/min/1.73m2 (>=60 - ) 10/03/2016 08:37 EGFR (MDRD) >60 mL/min/1.73m2 (>=60 - ) 10/03/2016 08:37 BUN 17 mg/dL (6 - 21) 10/03/2016 08:37 Calcium Lvl 10.0 mg/dL (8.0 - 10.3) 10/03/2016 08:37 AST 25 unit/L (8 - 43) 10/03/2016 08:37 Cholesterol (H) 206 mg/dL ( - <=199) 10/03/2016 08:37 Trig 83 mg/dL ( - <=149) 10/03/2016 08:37 HDL 78 mg/dL (>=50 - ) 10/03/2016 08:37 LDL Calculated 111 mg/dL ( - <=129) 10/03/2016 08:37 Chol/HDL Ratio 3.00 10/03/2016 08:37 LDL/HDL 1 10/03/2016 08:37 TSH 1.07 mIU/L (0.27 - 4.20) 10/03/2016 08:37 Hgb 12.5 g/dL (12.0 - 15.5) 10/03/2016 08:37 Hct 38.4 % (34.9 - 44.5) 10/03/2016 08:37 WBC 5.5 x10(9)/L (3.4 - 10.5) 10/03/2016 08:37 RBC 4.09 x10(12)/L (3.90 - 5.03) 10/03/2016 08:37 MCV 93.9 fL (82.0 - 98.0) 10/03/2016 08:37 RDW 13.3 % (11.9 - 15.5) 10/03/2016 08:37 Platelet 178 x10(9)/L (150 - 450) 10/03/2016 08:37 Neutro Absolute 3.22 10(9)/L (1.70 - 7.00) 10/03/2016 08:37 Lymph Absolute 1.45 x10(9)/L (0.90 - 2.90) 10/03/2016 08:37 Churchill Absolute 0.64 x10(9)/L (0.30 - 0.90) 10/03/2016 08:37 Eos Absolute 0.11 x10(9)/L (0.05 - 0.50) 10/03/2016 08:37 Baso Absolute 0.04 x10(9)/L (0.00 - 0.30) Source: [facility] POWERCHART Document Id: [id number] Electronically signed by Conversion, [facility] Senior Pensions Administrator [id number] at 03/12/2017 12:39 PM CDT documented in this encounter Plan of Treatment Not on filedocumented as of this encounter Procedures Procedure Name Priority Date/Time Associated Diagnosis Comme nts BASIC METABOLIC Routine 10/03/2016 8:37 AM Result s for this PANEL, S/P MATRIX BATH ATTENDANT procedure are i n the results section. documented in this encounter Results (ABNORMAL) BMP (Basic Metabolic Panel) (10/03/2016 8:37 AM MATRIX BATH ATTENDANT) P athologist Signature Sodium, S 144 135 - 145 POWERCHART [facility] Potassium, S 5.6 (H) 3.6 - 5.2 POWERCHART [facility] Chloride, S 104 98 - 107 POWERCHART [facility] CO2 Total 29 22 - 29 POWERCHART [facility] Glucose, 106 (H) 70 - 99 POWERCHART Fasting, S MGDL BUN (Blood Urea 17 6 - 21 POWERCHART Nitrogen), S MGDL Creatinine 0.87 0.60 - POWERCHART 1.10 MGDL Calcium, Total, 10.0 8.0 - 10.3 POWERCHART S MGDL Anion Gap 11 7 - 15 POWERCHART [facility] HXeGFR (MDRD) >60 >=60 POWERCHART [id number] eGFR >60 >=60 POWERCHART Black/ [id number] Gambian Specimen (Source) Anatomical Collection Method Collection Time Re ceived Time Location / / Volume Laterality Blood 10/03/2016 8:37 AM MATRIX BATH ATTENDANT Felix Santos APRN, C.N.P. LAB BLOOD ADD-ON Performing Organization Address City/State/ZIP Code Phon e Number POWERCHART documented in this encounter Visit Diagnoses Not on filedocumented in this encounter Additional Health Concerns Assessment Noted Time PHQ-9 Depression Total Score: 3 09/15/2015 10:56 AM CS T documented as of this encounter
--- OUTSIDE RECORDS SUMMARY | 2022-06-30 08:31 | XMS_ITS | Encounter Summary ---
:1960 Author Organization [facility] Address [address] [place] [address] Care Team Providers Name Role Phone Allyson Resendiz APRN, C.N.P. Primary Care Provider [phone] Encounter Details Date Type Department Care Team Description 08/25/2017 Orders Only Department of General Em Boyle S creening Cancer Colon Surgery in [place] (Primary Dx) [address] [phone] Social History Tobacco Use Types Packs/Day Years [...] How often do you attend pentecostalism or baptist More than 4 time s per year [...] slept in a senior care (including now)? Sex Assigned at Date Recorded Not on file documented as of this encounter Plan of Treatment Not on filedocumented as of this encounter Visit Diagnoses Diagnosis Screening Cancer Colon - Primary documented in this encounter Care Teams Mutuel Department Manager Relationship Specialty Start Date End Date Allyson Resendiz, ASHIA, C.N.P. PCP - General 03/30/[address] [phone] documented as of this encounter
--- OUTSIDE RECORDS SUMMARY | 2022-06-30 08:31 | XMS_ITS | Encounter Summary ---
:1960 Author Organization [facility] Address [address] [place] [address] Care Team Providers Name Role Phone Unavailable Primary Care Provider Unavailable Encounter Details Date Type Department Care Team Description 10/05/2016 Hospital Encounter HX [facility]ILY[facility] MyrFelix donoavn, RN TRAVEL, C.N.P. [address] [place], [place] [phone] (Wo rk) Social History [...] How often do you attend congregation or quaker More than 4 time s [...] Reading Time Taken Comments Blood Pressure 102/58 10/05/2016 8:24 AM MULTIFOCAL BUTTON INSPECTOR Pulse 68 10/05/2016 8:24 AM MULTIFOCAL BUTTON INSPECTOR Temperature - - Respiratory Rate 18 10/05/2016 8:24 AM MULTIFOCAL BUTTON INSPECTOR Oxygen Saturation - - Inhaled Oxygen Concentration - - Weight 77.5 kg (170 lb 13.7 oz) 10/05/2016 8:24 AM MULTIFOCAL BUTTON INSPECTOR Height 180 cm (5' 10.87) 10/05/2016 8:24 AM MULTIFOCAL BUTTON INSPECTOR Body Mass Index 23.92 10/05/2016 8:24 AM MULTIFOCAL BUTTON INSPECTOR documented in this encounter Medications at Time of Discharge Medication Sig Dispensed Refills Start Date End Date B complex-vitamins (B Take 1 tablet by 0 07/09/20 14 COMPLEX 1) tablet mouth daily. calcium Take 1 tablet by 0 04/04/2012 carbonate-vitamin D3 mouth daily. (CALCIUM 600 + D,3,) 600 mg calcium- 200 unit capsule FSH/FLX/PRIM/CUR/BOR/OM3 Take 1 capsule by 0 04/05/2014 ,6,9 5 (OMEGA 3-6-9 mouth daily. FATTY ACIDS ORAL) drepgdkvnsqc-Qf-cmcu-min Take 1 tablet by 0 01/14 erals [...] winter months documented as of this encounter H&P Notes Felix Santos, RN TRAVEL, C.N.P. - 10/05/2016 9:46 AM CST Clinic Full Note CHIEF COMPLAINT/REASON FOR VISIT Physical HISTORY OF PRESENT ILLNESS Yamel is here for Health Care Maintenance Exam. She was in for fasting labs last week. We reviewed those. Mammogram was done yesterday and was normal. She has Raynaud's disease, she takes Verapamil 180 mg XR daily in the Winter. Lipids are stable on atorvastatin without adverse effects. MEDICATIONS atorvastatin 20 mg oral tablet, 20 mg, 1 tab(s), PO, Bedtime, 3 refills B-Complex 50, 1 tab(s), PO, Daily Calcium 600+D, 1 tab(s), PO, 2xDay Fish Oil 1000 mg oral capsule, 1,000 mg, 1 cap(s), PO, Daily ketoconazole 2% topical shampoo, 1 wayne, Topical, 2xWeek, 3 refills metroNIDAZOLE 0.75% topical gel, 1 wayne, cheeks, nose folds, and chin 2x daily, Topical, Daily AM, 3refills Misc Prescription, amberen, Daily tretinoin 0.025% topical cream, 1 wayne, wash hands before applying, Topical, Bedtime, 5 refills verapamil 180 mg/24 [...] must include the following: Cholesterol, serum, total (05982) Lipoprotein, direct measurement, high density cholesterol (HDL cholesterol) (36262) Triglycerides (99610). (01/15/2010), Varicose vein stripping (03/30/2006), Ovarian cystectomy (03/30/1987). SOCIAL HISTORY Date Time: 10/05/2016 08:27 Tobacco: Smoking Status: Never smoker Exposure: Other: Never Alcohol: Use: No Recreational Drugs: Use: None Type: No Results Found FAMILY HISTORY Mother ( at 69 year(s)):Positive: Brain tumor; Hyperlipidemia Father:Positive: Skin cancer Sister: Negative: Brother: Negative: Sister: Negative: Brother: Negative: HEALTH MAINTENANCE up to date. SYSTEMS REVIEW GENERAL: No weight [...] thirst, no excessive bruising VITAL SIGNS T: 37.0 ??C (Core) HR: 68 RR: 18 BP: 102 / 58 HT: 180 cm WT: 77.50 kg BMI: 23.92 PHYSICAL EXAMINATION GENERAL: In general, the patient [...] tendon reflexes are +2 and symmetrical. IMPRESSION/REPORT/PLAN General Medical Exam Adult (GME) Continue to work on healthy diet and regular exercise program. I will mail laboratory results. Return for complete physical exam and mammogram in one year. Ordered: OV Est Pt Prev 40-64 - 73391 Hypercholesterolemia Stable on atorvastatin without adverse effects. Ordered: OV Est Pt Level 3 - 23444 - 15 min Raynaud's disease Stable, continue Verapamil. Refill provided. Ordered: OV Est Pt Level 3 - 05040 - 15 min Orders: atorvastatin, 20 mg = 1 tab(s), PO, Bedtime, # 90 tab(s), 3 Refill(s), Maintenance, Pharmacy: [email or web address] [id number], Neew dose, does not need refill today. 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 - 10/05/2016 8:41 AM CST Ambulatory Patient Education The following [...] contain saturated fat unless labeled otherwise. ?? [id number] [place] [address]. All rights reserved. This information is not intended as a substitute for professional medical care. Always follow your healthcare professional's instructions. This document has images extracted. Please consider using [employer] for all your patient education needs. Source: [facility] POWERCHART Document Id: [id number] IFOCAL BUTTON INSPECTOR documented in this encounter Miscellaneous Notes Miscellaneous - Dom Lewis, C.M.A. - 10/05/2016 8:43 AM CST PHQ-9 PHQ-9 Entered On: 10/05/2016 8:44 MULTIFOCAL BUTTON INSPECTOR Performed On: 10/05/2016 8:43 MULTIFOCAL BUTTON INSPECTOR by DOM FRANK CMA PHQ-9 Little interest or pleasure in doing things : Not at all Feeling down, depressed, or hopeless : Not at all Trouble falling or staying asleep, or sleeping too much : Not at all Feeling tired or having little energy : Not at all Poor appetite or overeating : Not at all Feeling bad about yourself or that you are a failure : Not at all Trouble concentrating on things : Not at all Moving or speaking slowly; restless or fidgety : Not at all Thoughts that you would be better off /hurting self : Not at all PHQ-9 Calculated Score : 0 Problems make work, home, or dealing with others : Not difficult at all DOM FRANK [facility] - 10/05/2016 8:43 MULTIFOCAL BUTTON INSPECTOR [facility] Document Id: [id number] MULTIFOCAL BUTTON INSPECTOR!13 IFOCAL BUTTON INSPECTOR Miscellaneous - Felix Santos APRN, C.N.P. - 10/05/2016 8:41 AM CST Ambulatory Patient Summary [address] [id number] Visit Information Name: YAMEL MARCELO [facility] Number: [id number] Current Date: 10/05/2016 08:41:54 Physicians Attending Provider: FELIX SANTOS APRN, CNP Primary Care Provider: FELIX SANTOS APRN [facility] MARCELINA MARCELOOLIVA ELLIS has been given the [...] once a day (at bedtime) Routed to [address] [id number] calcium-vitamin D (Calcium 600+D) 1 Tablet(s), Oral, [...] Oral, once a day for Reynaud's disease Routed to [address] [id number] Stop Taking the Following Medications: Medication list as of 10-05-16 08:41 Attention: If you have any medications at [...] Signed By: FELIX SANTOS APRN, CNP Signed On:05-OCT-2016 08:41:41 Your Allergies & Intolerances Substance Reaction Symptoms [...] contain saturated fat unless labeled otherwise. ?? [id number] [place] [address]. All rights reserved. This information is not [...] if you dont have one. Go to [email or web address] and click on Create Your Account. Then, follow the directions to complete the online form. Youll be asked for your [facility] number which you can find at the top of this document. Your Goals/Additional instructions: This document has images extracted. Please consider using [employer] for all your patient education needs. Source: [facility] POWERCHART Document Id: [id number] IFOCAL BUTTON INSPECTOR Miscellaneous - Felix Santos APRN, C.N.P. - 10/05/2016 8:41 AM CST Ambulatory Discharge Medication List [address], [place] [id number] Visit Information Name: YAMEL MARCELO [facility] Number: [id number] Current Date: 10/05/2016 08:41:53 Attending Provider: FELIX SANTOS APRN, CNP Primary Care Provider: FELIX SANTOS APRN [employer] YAMEL MARCELO has been given the following list [...] once a day (at bedtime) Routed to [address] [id number] calcium-vitamin D (Calcium 600+D) 1 Tablet(s), Oral, [...] Oral, once a day for Reynaud's disease Routed to [address] [id number] Stop Taking the Following Medications: Medication list as of 10-05-16 08:41 Attention: If you have any medications at [...] emergency. Electronically Signed By: FELIX SANTOS APRN [employer] Signed On:05-OCT-2016 08:41:41 Additional Information: Source: [facility] POWERCHART Document Id: [id number] IFOCAL BUTTON INSPECTOR Miscellaneous - Dom Lewis C.MAnita - 10/05/2016 8:27 AM CST Health Assessment Health Assessment Entered On: 10/05/2016 8:27 MULTIFOCAL BUTTON INSPECTOR Performed On: 10/05/2016 8:27 MULTIFOCAL BUTTON INSPECTOR by DOM FRANK [facility] Health Assessment Complete Health Assessment Complete or Modified : Annual Health Assessment Annual Health Assessment Completed : Yes DOM FRANK [facility] 10/05/2016 8:27 MULTIFOCAL BUTTON INSPECTOR Nutrition Nutrition Risk Factors by History Adult : None DOM FRANK [facility] 10/05/2016 8:27 MULTIFOCAL BUTTON INSPECTOR Functional Current Daily Living Assistance : None DOM FRANK [facility] 10/05/2016 8:27 MULTIFOCAL BUTTON INSPECTOR Dependent Habits Exposure to Tobacco Smoke : Other: Never Smoking Status : Never smoker Tobacco 2A : No Tobacco Use/Currently Using : No Tobacco Use/Last 30 Days : No Tobacco Use/Last 12 months : No Alcohol Use : No DOM FRANK [facility] 10/05/2016 8:27 MULTIFOCAL BUTTON INSPECTOR Caffeine Use Grid Caffeine Use : Current Type : Soft drinks Frequency : Occasionally DOM FRANK [facility] 10/05/2016 8:27 MULTIFOCAL BUTTON INSPECTOR Recreational Drug Use Grid Drug Use : None DOM FRANK [facility] 10/05/2016 8:27 MULTIFOCAL BUTTON INSPECTOR Psychosocial Domestic Abuse Concerns : None Behavioral Health Screen/Safety Assmt : No Sikhism Preference : Unknown DOM FRANK [facility] 10/05/2016 8:27 MULTIFOCAL BUTTON INSPECTOR Advance Directive Advanced Directives : No Advance Directive Additional Information : No DOM FRANK [facility] 10/05/2016 8:27 MULTIFOCAL BUTTON INSPECTOR Educ Needs Learning Style Preference Adult Grid Patient : Verbal explanation Family : None ZAC, DOM M [facility] - 10/05/2016 8:27 MULTIFOCAL BUTTON INSPECTOR Source: [facility] POWERCHART Document Id: [id number] MULTIFOCAL BUTTON INSPECTOR!35 IFOCAL BUTTON INSPECTOR Miscellaneous - Dom Lewis, C.M.A. - 10/05/2016 8:24 AM CST Adult Concrete Pointer Intake/History Adult [place] [employer] Intake/History Entered On: 10/05/2016 8:27 MULTIFOCAL BUTTON INSPECTOR Performed On: 10/05/2016 8:24 MULTIFOCAL BUTTON INSPECTOR by DOM FRANK [facility] Intake Chief Complaint : Physical Temperature Core : 37.0 DegC(Converted to: 98.6 DegF) Peripheral Pulse Rate : 68 /min Respiratory Rate : 18 /min Heart Rhythm : Regular Systolic Blood Pressure : 102 mmHg Diastolic Blood Pressure : 58 mmHg NIBP Mean : 73 mmHg BP Location : Right upper extremity Blood Pressure Cuff Size : Regular Height : 180 cm(Converted to: 5 ft 11 inch(es), 71 inch(es)) Actual Weight : 77.50 kg(Converted to: 170 lb 14 oz) Dosing Weight Clinic : 77.5 kg Clinic BSA : 1.97 Body Mass Index : 23.92 kg/m2 ZACROYA BORJABrandyn Cartagena [facility] 10/05/2016 8:24 MULTIFOCAL BUTTON INSPECTOR General Info Information Given By : Patient Preferred Communication Mode : Verbal Languages : Gren[place] Is Patient Female and 13-50 no hysterectomy : No DOM FRANK [facility] 10/05/2016 8:24 MULTIFOCAL BUTTON INSPECTOR Subjective Pain Symptoms : No DOM FRANK [facility] 10/05/2016 8:24 MULTIFOCAL BUTTON INSPECTOR Dependent Habits Exposure to Tobacco Smoke : Other: Never Smoking Status : Never smoker Tobacco 2A : No Tobacco Use/Currently Using : No Tobacco Use/Last 30 Days : No Tobacco Use/Last 12 months : No DOM FRANK [facility] 10/05/2016 8:24 MULTIFOCAL BUTTON INSPECTOR Caffeine Use Grid Caffeine Use : Current Type : Soft drinks Frequency : Occasionally DOM FRANK [facility] 10/05/2016 8:24 MULTIFOCAL BUTTON INSPECTOR Recreational Drug Use Grid Drug Use : None DOM FRANK [employer] - 10/05/2016 8:24 MULTIFOCAL BUTTON INSPECTOR Source: [facility] POWERCHART Document Id: [id number] MULTIFOCAL BUTTON INSPECTOR!39 IFOCAL BUTTON INSPECTOR documented in this encounter Plan of Treatment Not on filedocumented as of this encounter Visit Diagnoses Not on filedocumented in this encounter
--- OUTSIDE RECORDS SUMMARY | 2022-06-30 08:31 | XMS_ITS | Encounter Summary ---
:1960 Author Organization [facility] Address [address] [place] [address] Care Team Providers Name Role Phone Unavailable Primary Care Provider Unavailable Encounter Details Date Type Department Care Team Description 09/15/2015 Hospital Encounter HX [facility] MyrRula donovan, WATERPROOFER, C.N.P. [address] [place] [address] (Wo rk) Social History Tobacco [...] How often do you attend yazidism or congregational More than 4 time s per year [...] Sign Reading Time Taken Comments Blood Pressure 110/74 09/15/2015 10:31 AM EXTENSION PROFESSOR Pulse 80 09/15/2015 10:31 AM EXTENSION PROFESSOR Temperature - - Respiratory Rate 16 09/15/2015 10:31 AM EXTENSION PROFESSOR Oxygen Saturation - - Inhaled Oxygen Concentration - - Weight 82.8 kg (182 lb 8.7 oz) 09/15/2015 10:31 AM EXTENSION PROFESSOR Height 178 cm (5' 10.08) 09/15/2015 10:31 AM EXTENSION PROFESSOR Body Mass Index 26.13 09/15/2015 10:31 AM EXTENSION PROFESSOR documented in this encounter Medications at Time [...] (OMEGA 3-6-9 mouth daily. FATTY ACIDS ORAL) srenumnoudpq-Td-ogya-min Take 1 tablet by 0 01/14 erals tablet mouth daily. UNABLE TO FIND daily. Amberen 0 09/30/2013 ketoconazole Apply 1 application 0 09/30/2014 (for_NIZORAL) 2 % topically 2 (two) shampoo times a week. metroNIDAZOLE Apply 1 application 0 09/30/2014 (for_ROSADAN) 0.75 % gel topically every morning. documented as of this encounter Progress Notes Felix Santos, ASHIA, CKarolNKarolP. - 09/15/2015 10:53 AM CST Clinic Full Note CHIEF COMPLAINT/REASON FOR VISIT Both ears hurts. left one has a shooting pain and right one has a throbbing. Started about 10 days ago. Having facial pain. Monday night had issues with sinus but ok now. Needs refill on verapamil. Wants order for labs for upcoming physical. HISTORY OF PRESENT ILLNESS Amanda states she has had pressure and pain in her ears for the past week. She has nasal congestion and has been using an OTC sinus medication. She has Raynaud's disease and is on Verapamil. She feels symptoms are pretty well controlled. She needs refill. She plans to come in later in the month for delfino taylor, physical exam and labs. She would like orders placed. MEDICATIONS atorvastatin 20 mg oral tablet, 20 [...] extended release, 180 mg, 1 cap(s), for Raynaud's disease, PO, Daily, 3 refills ALLERGIES NKA [...] must include the following: Cholesterol, serum, total (85375) Lipoprotein, direct measurement, high density cholesterol (HDL cholesterol) (22112) Triglycerides (77480). (01/15/2010), Varicose vein stripping (03/30/2006), Ovarian cystectomy (03/30/1987). SOCIAL HISTORY Date Time: 09/15/2015 10:31 Tobacco: Smoking Status: No Results Found Exposure: No Results Found Alcohol: Use: No Results Found Recreational Drugs: Use: None Type: No Results Found FAMILY HISTORY Mother ( at 69 year(s)):Positive: Brain tumor; Hyperlipidemia Father:Positive: Skin cancer Sister: Negative: Brother: Negative: Sister: Negative: Brother: Negative: HEALTH MAINTENANCE Will check Hepatitis C screen with next lab draw. SYSTEMS REVIEW Positive for that mentioned in the History of Present Illness and Past Medical History. All other systems were reviewed and were negative. VITAL SIGNS T: 36.7 ??C (Core) HR: 80 RR: 16 BP: 110 / 74 HT: 178 cm WT: 82.8 kg BMI: 26.13 PHYSICAL EXAMINATION GENERAL: Well-developed, well-nourished, in no acute distress. SKIN: Warm and dry. HEENT: TMs dull with serous fluid in the middle ear. Throat clear. Nares congested with yellow mucus. NECK: Supple. Mild anterior cervical lymphadenopathy. No thyromegaly. HEART: Regular rate and rhythm. S1, S2. No murmur. LUNGS: Clear to auscultation. No wheezes or rales. ABDOMEN: Soft, nontender. No hepatosplenomegaly. EXTREMITIES: Warm, dry. No peripheral edema. IMPRESSION/REPORT/PLAN Hypercholesterolemia Stable on atorvastatin. Will return for fasting lipids and AST. Ordered: OV Est Pt Level 4 - 56152 - 25 min Nodule Thyroid NOS Stable. Will check TSH with next lab draw. Ordered: OV Est Pt Level 4 - 05133 - 25 min Otitis Media (OM) Serous Blake Take antibiotic as prescribed. Encourage fluids, acetaminophen or ibuprofen for fever and discomfort. Rest. Recheck if symptoms do not improve. Ordered: OV Est Pt Level 4 - 89773 - 25 min Raynaud's disease Well controlled on verapamil. Refill provided. 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 - 09/15/2015 10:49 AM CST Ambulatory Patient Education The following Patient Education Materials have been given to the patient: Patient Education Materials: Ambulatory OTITIS MEDIA, Abx Tx (Adult) Ambulatory Middle Ear Infection (Adult) You have an infection of the middle ear (the space behind the eardrum). It can occur as a result of the common cold. This is because congestion can block the internal passage (eustachian tube) that drains fluid from the middle ear. When the middle ear fills with fluid, bacteria can grow there and cause an infection. Oral antibiotics are used to treat this illness, not ear drops. Symptoms usually start to improve within 1-2 days of treatment. Home Care: ?? Finish all of the antibiotic medicine prescribed, even though you may feel better after the firstfew days. ?? You may use acetaminophen (Tylenol) or ibuprofen (Motrin, Advil) to control pain, unless something else was prescribed. [NOTE: If you have chronic liver or kidney disease or have ever had a stomach ulcer or GI bleeding, talk with your doctor before using these medicines.] (Do not give aspirin to anyone under 18 years of age who is ill with a fever. It may cause severe liver damage.) Follow Up with your doctor or this facility in two weeks if all symptoms have not cleared, or if hearing does not return to normal within one month. Get Prompt Medical Attention if any of the following occur: ?? Ear pain gets worse or does not improve after three days of treatment ?? Unusual drowsiness or confusion ?? Neck pain, stiff neck or headache ?? Fluid or blood draining from the ear canal ?? Fever of 100.4??F (38??C) or higher after 3 days of antibiotics, or as directed by your healthcare provider ?? Convulsion (seizure) ?? [id number] [facility], [address] [place] [address], [place] [address]. All rights reserved. This information is not intended as a substitute for professional medical care. Always follow your healthcare professional's instructions. This document has images extracted. Please consider using [employer] for all your patient education needs. Source: [facility] POWERCHART Document Id: [id number] NSION PROFESSOR documented in this encounter Miscellaneous Notes Miscellaneous - Dori Zabala L.P.N. - 09/15/2015 10:56 AM CST PHQ-9 PHQ-9 Entered On: 09/15/2015 10:57 EXTENSION PROFESSOR Performed On: 09/15/2015 10:56 EXTENSION PROFESSOR by DORI ZABALA LPN PHQ-9 Little interest or pleasure in doing things : Several days Feeling down, depressed, or hopeless : Several days Trouble falling or staying asleep, or sleeping too much : Not at all Feeling tired or having little energy : Not at all Poor appetite or overeating : Several days Feeling bad about yourself or that you are a failure : Not at all Trouble concentrating on things : Not at all Moving or speaking slowly; restless or fidgety : Not at all Thoughts that you would be better off /hurting self : Not at all PHQ-9 Calculated Score : 3 Problems make work, home, or dealing with others : Somewhat difficult DORI ZABALA LPN - 09/15/2015 10:56 EXTENSION PROFESSOR Source: [facility] POWERCHART Document Id: [id number] EXTENSION PROFESSOR!13 NSION PROFESSOR Miscellaneous - Felix Santos APRN, C.N.P. - 09/15/2015 10:49 AM EXTENSION PROFESSOR Ambulatory Patient Summary [place] [id number] [facility] [place] [id number] Visit Information Name: AMANDA MARCELO [facility] Number: [id number] Current Date: 09/15/2015 10:49:49 Physicians Attending Provider: FELIX SANTOS CNP Primary Care Provider: FELIX SANTOS CNP RAHEEMAMANDA MONTERO has been given the following list of [...] 1 Tablet(s), Oral, three times a day cefuroxime (cefuroxime 500 mg oral tablet) 1 Tablet(s), Oral, two times a day x 10 day(s) [facility] [place] [address] [place] [id number] *fluorouracil topical (fluorouracil 5% topical cream) [address], Topical, once a day (at bedtime) 4 weeks to the chest (apply with gloves) ketoconazole topical (ketoconazole 2% topical shampoo) 1 [...] a day for Reynaud's disease Routed to [place] [address] [place], [place] [phone] * You have let us know that you are not taking this medication as listed. Please talk with your primary care provider or the health care provider who prescribed the medication as soon as possible. Stop Taking the Following Medications: Medication list as of 09-15-15 10:49 Attention: If you have any medications at [...] Electronically Signed By: FELIX SANTOS CNP Signed On:15-SEP-2015 10:49:11 Your Allergies & Intolerances Substance Reaction Symptoms [...] local Clinic if further appointment detail needed. Middle Ear Infection (Adult) You have an infection of the middle ear (the space behind the eardrum). It can occur as a result of the common cold. This is because congestion can block the internal passage (eustachian tube) that drains fluid from the middle ear. When the middle ear fills with fluid, bacteria can grow there and cause an infection. Oral antibiotics are used to treat this illness, not ear drops. Symptoms usually start to improve within 1-2 days of treatment. Home Care: ?? Finish all of the antibiotic medicine prescribed, even though you may feel better after the firstfew days. ?? You may use acetaminophen (Tylenol) or ibuprofen (Motrin, Advil) to control pain, unless something else was prescribed. [NOTE: If you have chronic liver or kidney disease or have ever had a stomach ulcer or GI bleeding, talk with your doctor before using these medicines.] (Do not give aspirin to anyone under 18 years of age who is ill with a fever. It may cause severe liver damage.) Follow Up with your doctor or this facility in two weeks if all symptoms have not cleared, or if hearing does not return to normal within one month. Get Prompt Medical Attention if any of the following occur: ?? Ear pain gets worse or does not improve after three days of treatment ?? Unusual drowsiness or confusion ?? Neck pain, stiff neck or headache ?? Fluid or blood draining from the ear canal ?? Fever of 100.4?F (38?C) or higher after 3 days of antibiotics, or as directed by your healthcare provider ?? Convulsion (seizure) ?? [id number] [place] [address]. All rights reserved. This information is not [...] if you dont have one. Go to [email or web address] and click on Create Your Account. Then, follow the directions to complete the online form. Youll be asked for your [facility] number which you can find at the top of this document. Your Goals/Additional instructions: This document has images extracted. Please consider using [employer] for all your patient education needs. Source: [facility] POWERCHART Document Id: [id number] NSION PROFESSOR Miscellaneous - Felix Santos APRN, C.N.P. - 09/15/2015 10:49 AM EXTENSION PROFESSOR Ambulatory Discharge Medication List [address] [phone] Visit Information Name: AMANDA MARCELO [facility] Number: [id number] Visit Date: 09/15/2015 10:49:48 Attending Provider: FELIX SANTOS CNP Primary Care Provider: FELIX SANTOS CNP FOZIA AMANDA ELLIS has been given the [...] 1 Tablet(s), Oral, three times a day cefuroxime (cefuroxime 500 mg oral tablet) 1 Tablet(s), Oral, two times a day x 10 day(s) [facility] [address] [place], [place] [phone] *fluorouracil topical (fluorouracil 5% topical cream) 1 wayne, Topical, once a day (at bedtime) 4 weeks to the chest (apply with gloves) ketoconazole topical (ketoconazole 2% topical shampoo) 1 [...] a day for Reynaud's disease Routed to [address] [id number] * You have let us know that you are not taking this medication as listed. Please talk with your primary care provider or the health care provider who prescribed the medication as soon as possible. Stop Taking the Following Medications: Medication list as of 09-15-15 10:49 Attention: If you have any medications at [...] of emergency. Electronically Signed By: FELIX SANTOS JACKSCREW MAN Signed On:15-SEP-2015 10:49:11 Additional Information: Source: [facility] POWERCHART Document Id: [id number] NSION PROFESSOR Miscellaneous - Dori Zabala L.P.N. - 09/15/2015 10:31 AM CST Adult Administrator Pesticide Intake/History Adult Administrator Pesticide Intake/History Entered On: 09/15/2015 10:35 EXTENSION PROFESSOR Performed On: 09/15/2015 10:31 EXTENSION PROFESSOR by DORI ZABALA LPN Intake Chief Complaint : Both ears hurts. left one has a shooting pain and right one has a throbbing. Started about 10 days ago. Having facial pain. Monday night had issues with sinus but ok now. Needs refillon verapamil. Wants order for labs for upcoming physical. Temperature Core : 36.7 DegC(Converted to: 98.1 DegF) Peripheral Pulse Rate : 80 /min Respiratory Rate : 16 /min Heart Rhythm : Regular Systolic Blood Pressure : 110 mmHg Diastolic Blood Pressure : 74 mmHg NIBP Mean : 86 mmHg BP Location : Left upper extremity Blood Pressure Cuff Size : Regular Height : 178 cm(Converted to: 5 ft 10 inch(es), 70 inch(es)) Actual Weight : 82.8 kg(Converted to: 182 lb 9 oz) Weight Source : Standing scale Dosing Weight Clinic : 82.8 kg Clinic BSA : 2.02 Body Mass Index : 26.13 kg/m2 DORI ZABALA LPN - 09/15/2015 10:31 EXTENSION PROFESSOR General Info Information Given By : Patient Preferred Communication Mode : Verbal Languages : Greek Is Patient Female and 13-50 no hysterectomy : No DORI ZABALA LPN - 09/15/2015 10:31 EXTENSION PROFESSOR Subjective Pain Symptoms : Yes DORI ZABALA LPN - 09/15/2015 10:31 EXTENSION PROFESSOR Pain Scale Pain Scale Verbal 0-10 : Open DORI ZABALA LPN - 09/15/2015 10:31 EXTENSION PROFESSOR Pain Pain Assessment Grid Pain 1 Location : Ear Laterality : Bilateral Intensity : 9 Time Pattern : Intermittent DORI ZABALA LPN - 09/15/2015 10:31 EXTENSION PROFESSOR Dependent Habits Exposure to Tobacco Smoke : Other: Never Smoking Status : Never smoker Tobacco 2A : No DORI ZABALA LPN - 09/15/2015 10:31 EXTENSION PROFESSOR Caffeine Use Grid Caffeine Use : Current Type : Soft drinks Frequency : Occasionally DORI ZABALA LPN - 09/15/2015 10:31 EXTENSION PROFESSOR Recreational Drug Use Grid Drug Use : None DORI ZABALA LPN - 09/15/2015 10:31 EXTENSION PROFESSOR [facility] POWERCHART Document Id: [id number] EXTENSION PROFESSOR!46 NSION PROFESSOR documented in this encounter Plan of Treatment Not on filedocumented as of this encounter Visit Diagnoses Not on filedocumented in this encounter Additional Health Concerns Assessment Noted Time PHQ-9 Depression Total Score: 3 09/15/2015 10:56 AM CS T documented as of this encounter
--- OUTSIDE RECORDS SUMMARY | 2022-06-30 08:32 | XMS_ITS | Encounter Summary ---
:1960 Author Organization [facility] Address [address] [place] [address] Care Team Providers Name Role Phone Unavailable Primary Care Provider Unavailable Encounter Details Date Type Department Care Team Description 10/27/2014 Hospital Encounter HX [facility] Rell Fields M.D. [address], [place] [phone] (Wo rk) Social History [...] How often do you attend rastafarian or samaritan More than 4 time s [...] slept in a senior living (including now)? Sex Assigned at Date Recorded Not on file documented as of this encounter Last Filed Vital Signs Vital Sign Reading Time Taken Comments Blood Pressure 116/82 10/27/2014 4:20 PM NUMERICAL CONTROL MACHINE MACHINIST Pulse 76 10/27/2014 4:20 PM NUMERICAL CONTROL MACHINE MACHINIST Temperature - - Respiratory Rate 16 10/27/2014 4:20 PM NUMERICAL CONTROL MACHINE MACHINIST Oxygen Saturation - - Inhaled Oxygen Concentration - - Weight 82 kg (180 lb 12.4 oz) 10/27/2014 4:20 PM NUMERICAL CONTROL MACHINE MACHINIST Height 178 cm (5' 10.08) 10/27/2014 4:20 PM NUMERICAL CONTROL MACHINE MACHINIST Body Mass Index 25.88 10/27/2014 4:20 PM NUMERICAL CONTROL MACHINE MACHINIST documented in this encounter Medications at Time [...] (OMEGA 3-6-9 mouth daily. FATTY ACIDS ORAL) hwcqezzhelnk-Wg-puwk-min Take 1 tablet by 0 01/14 erals tablet mouth daily. UNABLE TO FIND daily. Amberen 0 09/30/2013 ketoconazole Apply 1 application 0 09/30/2014 (for_NIZORAL) 2 % topically 2 (two) shampoo times a week. metroNIDAZOLE Apply 1 application 0 09/30/2014 (for_ROSADAN) 0.75 % gel topically every morning. documented as of this encounter Progress Notes Kina Barber M.D. - 10/27/2014 4:16 PM CST [id number] CHIEF COMPLAINT/REASON FOR VISIT Postop check. HISTORY OF PRESENT ILLNESS Yamel is a 54-year-old nulliparous female who is 12 weeks postop status post total laparoscopic hysterectomy, bilateral salpingectomy and cystoscopy who presents for postop followup today. Yamel has done well overall except that she has had occasional vaginal bleeding in the postoperative period. WhenI saw her last on 10/06/2014 she continued to have brownish colored discharge requiring her to wear a pad each day. It seemed to be gradually decreasing and she reports that over the last 3 weeks she has had no vaginal bleeding. Otherwise, she is voiding, ambulating, and tolerating a regular diet without difficulty and having normal bowel movements. MEDICATIONS See EMR. ALLERGIES See EMR. SYSTEMS REVIEW GENERAL: No fevers, chills, fatigue, unintentional weight loss or weight gain. HEENT: No changes in vision or hearing, no sore throat or nasal congestion. CARDIOVASCULAR: No chest pain, irregular heartbeat or racing heart. RESPIRATORY: No shortness of breath, cough or wheeze. GASTROINTESTINAL: No nausea, vomiting, diarrhea, constipation or abdominal pain. GENITOURINARY: No pain or burning with urination, no irregular vaginal bleeding, heavy periods, painful periods, abnormal vaginal discharge, leaking urine, leaking stool or gas. SKIN: No rashes or skin lesions. BREASTS: No masses or lumps, no discharge from the nipples. NEUROLOGIC: No difficulty with memory, numbness, tingling, falls. PSYCHIATRIC: No anxiety, depression, or difficulty sleeping. ENDOCRINE: No heat intolerance, cold intolerance, excessive thirst or hair loss. VITAL SIGNS See EMR. PHYSICAL EXAMINATION GENERAL: Well-nourished female, in no acute distress. PELVIC: Normal pubic hair distribution. Urethral meatus normal location and appearance without masses. Vaginal mucosa pink and moist with a small amount of thin white discharge present at the vaginal cuff apex with absolutely no evidence of bleeding noted at this time. The vaginal cuff apex appears maggie healed well. On there are no lesions or nodularity. Externally there is a 4 x 4 mm elevated acrochordon on the right posterior labium majus. This is stable in appearance. LOWER EXTREMITIES: Nontender, no edema. IMPRESSION/REPORT/PLAN A 54-year-old nulliparous female who is 12 weeks postop status post total laparoscopic hysterectomy,bilateral salpingectomy and cystoscopy, who presents for postop check as she had prolonged vaginal bleeding post procedure. 1. Postoperative progress: The patient has made excellent postoperative progress and her vaginal bleeding has resolved at this time. The vaginal cuff apex appears to be healed well. She was counseled that she can resume her normal activities. 2. Followup: As needed. Kina Barber M.D./rui Electronically Signed By: KINA BARBER MD On: 10/28/2014 10:57 AM Source: [facility] MHSDOLBEYNONRADSYS Document Id: [id number] RICAL CONTROL MACHINE MACHINIST documented in this encounter Miscellaneous Notes Miscellaneous - Kina Barber M.D. - 10/27/2014 5:38 PM CST Ambulatory Patient Summary [address] [id number] Visit Information Name: YAMEL MARCELO [facility] Number: [id number] Visit Date: 10/27/2014 17:38:00 Attending Provider: KINA BARBER MD Primary Care Provider: FELIX SANTOS FLIGHT SURGEON YAMEL MARCELO has been given the following [...] 1 Tablet(s), Oral, three times a day fluorouracil topical (fluorouracil 5% topical cream) 1 wayne, Topical, once a day (at bedtime) 4 weeksto the chest (apply with gloves) ketoconazole topical (ketoconazole 2% topical shampoo) 1 wayne, Topical, 2 times a week magnesium citrate (magnesium citrate) 300 Milliliter, Oral, once metroNIDAZOLE topical (metroNIDAZOLE 0.75% topical gel) 1 wayne, Topical, once a day (in the morning) to whole face Misc Prescription (Misc Prescription) amberen, once a day multivitamin (B-Complex 50) 1 Tablet(s), Oral, once a day omega-3 polyunsaturated fatty acids (Fish Oil 1000 mg oral capsule) 1 cap, Oral, once a day tretinoin topical (tretinoin 0.025% topical cream) 1 wayne, Topical, once a day (at bedtime) triamcinolone topical (triamcinolone 0.1% topical ointment) 1 wayne, Topical, two times a day as needed for Itching to itchy areas during flourouracil treatment verapamil (verapamil 180 mg/24 hours oral capsule, extended release) 1 cap, Oral, once a day for Reynaud's disease Stop Taking the Following Medications: Medication list as of 10-27-14 17:38 Attention: If you have any medications at home that are not on this list, DO NOT take them until youcontact your provider for clarification. Give a copy of your medication list to your primary care provider. Update your medication list any time medications or doses are changed and carry your medication list at all times in case of emergency. Electronically Signed By: KINA BARBER MD Signed On:27-OCT-2014 17:37:50 Additional Information: Source: [facility] POWERCHART Document Id: [id number] RICAL CONTROL MACHINE MACHINIST Miscellaneous - Kina Barber M.D. - 10/27/2014 5:37 PM CST Ambulatory Discharge Medication List [address] [id number] Visit Information Name: YAMEL MARCELO [facility] Number: [id number] Visit Date: 10/27/2014 17:37:58 Attending Provider: KINA BARBER MD Primary Care Provider: FELIX SANTOS FLIGHT SURGEON MARCELINA MARCELOOLIVA HIGGINSN has been given the [...] 1 Tablet(s), Oral, three times a day fluorouracil topical (fluorouracil 5% topical cream) 1 wayne, Topical, once a day (at bedtime) 4 weeksto the chest (apply with gloves) ketoconazole topical (ketoconazole 2% topical shampoo) 1 wayne, Topical, 2 times a week magnesium citrate (magnesium citrate) 300 Milliliter, Oral, once metroNIDAZOLE topical (metroNIDAZOLE 0.75% topical gel) 1 wayne, Topical, once a day (in the morning) to whole face Misc Prescription (Misc Prescription) amberen, once a day multivitamin (B-Complex 50) 1 Tablet(s), Oral, once a day omega-3 polyunsaturated fatty acids (Fish Oil 1000 mg oral capsule) 1 cap, Oral, once a day tretinoin topical (tretinoin 0.025% topical cream) 1 wayne, Topical, once a day (at bedtime) triamcinolone topical (triamcinolone 0.1% topical ointment) 1 wayne, Topical, two times a day as needed for Itching to itchy areas during flourouracil treatment verapamil (verapamil 180 mg/24 hours oral capsule, extended release) 1 cap, Oral, once a day for Reynaud's disease Stop Taking the Following Medications: Medication list as of 10-27-14 17:37 Attention: If you have any medications at home that are not on this list, DO NOT take them until youcontact your provider for clarification. Give a copy of your medication list to your primary care provider. Update your medication list any time medications or doses are changed and carry your medication list at all times in case of emergency. Electronically Signed By: KINA BARBER MD Signed On:27-OCT-2014 17:37:50 Additional Information: Source: [facility] POWERCHART Document Id: [id number] RICAL CONTROL MACHINE MACHINIST Miscellaneous - Griselda Fishman L.P.N. 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 Warehouse Consultant Intake/History Adult Data Warehouse Consultant Intake/History Entered On: 10/27/2014 16:22 NUMERICAL CONTROL MACHINE MACHINIST Performed On: 10/27/2014 16:20 NUMERICAL CONTROL MACHINE MACHINIST by GRISELDA FISHMAN Intake Chief Complaint : post op visit Peripheral Pulse Rate : 76 /min Respiratory Rate : 16 /min Heart Rhythm : Regular Systolic Blood Pressure : 116 mmHg Diastolic Blood Pressure : 82 mmHg NIBP Mean : 93 mmHg BP Location : Left upper extremity Blood Pressure Cuff Size : Regular Height : 178 cm(Converted to: 5 ft 10 inch(es), 70 inch(es)) Actual Weight : 82.0 kg(Converted to: 180 lb 12 oz) Weight Source : Standing scale Dosing Weight Clinic : 82 kg Clinic BSA : 2.01 Body Mass Index : 25.88 kg/m2 GRISELDA FISHMAN 10/27/2014 16:20 NUMERICAL CONTROL MACHINE MACHINIST General Info Languages : Filipino Is Patient Female and 13-50 no hysterectomy : No GRISELDA FISHMAN 10/27/2014 16:20 NUMERICAL CONTROL MACHINE MACHINIST Subjective Pain Symptoms : No GRISELDA IFSHMAN 10/27/2014 16:20 NUMERICAL CONTROL MACHINE MACHINIST Dependent Habits Tobacco Use/Currently Using : No Exposure to Tobacco Smoke : Other: Never Smoking Status : Never smoker GRISELDA FISHMAN 10/27/2014 16:20 NUMERICAL CONTROL MACHINE MACHINIST Caffeine Use Grid Caffeine Use : Current Type : Soft drinks Frequency : Occasionally GRISELDA FISHMAN 10/27/2014 16:20 NUMERICAL CONTROL MACHINE MACHINIST Recreational Drug Use Grid Drug Use : None GRISELDA FISHMAN 10/27/2014 16:20 NUMERICAL CONTROL MACHINE MACHINIST ID Screen Travel Within Last 21 Days : No GRISELDA FISHMAN 10/27/2014 16:20 NUMERICAL CONTROL MACHINE MACHINIST Source: [facility] Document Id: [id number] NUMERICAL CONTROL MACHINE MACHINIST!36 RICAL CONTROL MACHINE MACHINIST documented in this encounter Plan of Treatment Not on filedocumented as of this encounter Visit Diagnoses Not on filedocumented in this encounter
--- OUTSIDE RECORDS SUMMARY | 2022-06-30 08:32 | XMS_ITS | Encounter Summary ---
:1960 Author Organization [facility] Address [address] [place] [address] Care Team Providers Name Role Phone Unavailable Primary Care Provider Unavailable Encounter Details Date Type Department Care Team Description 04/28/2015 Hospital Encounter HX [facility] FAMILYPRA Shana John M.D. [address] [facility], [address] [place], [place] [address] (Wo rk) Social History [...] or relatives? How often do you attend sikh or church More than 4 time s per year 02/02/2021 services? Do you belong to any clubs or organizations No 02/02/2021 such as sikh groups, unions, fraternal or athletic groups, or [...] Sign Reading Time Taken Comments Blood Pressure 124/74 04/28/2015 3:29 PM CDT Pulse 80 04/28/2015 3:29 PM CDT Temperature - - Respiratory Rate 12 04/28/2015 3:29 PM CDT Oxygen Saturation - - Inhaled Oxygen Concentration - - Weight 81 kg (178 lb 9.2 oz) 04/28/2015 3:29 PM CDT Height 178 cm (5' 10.08) 04/28/2015 3:23 PM CDT Body Mass Index 25.56 04/28/2015 3:23 PM CDT documented in this encounter [...] (OMEGA 3-6-9 mouth daily. FATTY ACIDS ORAL) cehrdyqqnmxm-Yy-qivk-min Take 1 tablet by 0 01/14 erals tablet mouth daily. UNABLE TO FIND daily. Amberen 0 09/30/2013 ketoconazole Apply 1 application 0 09/30/2014 (for_NIZORAL) 2 % topically 2 (two) shampoo times a week. metroNIDAZOLE Apply 1 application 0 09/30/2014 (for_ROSADAN) 0.75 % gel topically every morning. documented as of this encounter Progress Notes Toni John M.D. - 04/28/2015 3:34 PM CDT Clinic Full Note CHIEF COMPLAINT/REASON FOR VISIT Spot on L leg, below knee HISTORY OF PRESENT ILLNESS She has had some dry spot on the face, mainly in the posterior right cheek and some flaking in the right nasal labial fold. Her skin in general well is quite oily. She uses xael-spm-qfckzfj clearasil.She has not been consistently using the metronidazole gel or tretinoin. Left masters - inflamed round circular area for 3 to 4 months. At first it felt dry, then it became red and inflamed with raised edges. MEDICATIONS atorvastatin 20 mg oral tablet, 20 mg, 1 tab(s), PO, Bedtime, 3 refills B-Complex 50, 1 tab(s), PO, Daily Calcium 600+D, 1 tab(s), PO, 3xDay Fish Oil 1000 mg oral capsule, 1,000 mg, 1 cap(s), PO, Daily fluorouracil 5% topical cream, 1 wayne, 4 weeks to the chest (apply with gloves), Topical, Bedtime, 0refills, * ketoconazole 2% topical shampoo, 1 wayne, Topical, 2xWeek, 3 refills magnesium citrate, 300 mL, PO, Once metroNIDAZOLE 0.75% topical gel, 1 wayne, to whole face, Topical, Daily AM, 3 refills Misc Prescription, amberen, Daily tretinoin 0.025% topical cream, 1 wayne, Topical, Bedtime, 5 refills verapamil 180 mg/24 hours oral capsule, extended release, 180 mg, 1 cap(s), for Reynaud's disease, PO, Daily, 3 refills * indicates non-compliance ALLERGIES NKA PAST MEDICAL HISTORY Chronic Acne Rosacea Dermatitis Seborrheic NOS Hypercholesterolemia 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 (01/15/2010), Varicose vein stripping (03/30/2006), Ovarian cystectomy (03/30/1987). SOCIAL HISTORY Date Time: 04/28/2015 15:29 Tobacco: Smoking Status: No Results Found Exposure: No Results Found Alcohol: Use: No Results Found Recreational Drugs: Use: None Type: No Results Found FAMILY HISTORY Mother ( at 69 year(s)):Positive: Brain tumor; Hyperlipidemia Father:Positive: Skin cancer Sister: Negative: Brother: Negative: Sister: Negative: Brother: Negative: SYSTEMS REVIEW otherwise negative VITAL SIGNS T: 37.2 ??C (Core) HR: 80 RR: 12 BP: 124 / 74 HT: 178 cm WT: 81 kg PHYSICAL EXAMINATION General- No Acute Distress Skin- cracked skin crease of right ear closed comedones on the forehead- left leg- 15mmx 9mm raised red edged lesion with normal skin in the middle- IMPRESSION/REPORT/PLAN Acne Rosacea For cracked skin on the ear or around it- use aquaphor for a couple days. Avoid metronidazole gel in those areas when irritated. AM: Metronidazole to the whole face (including forehead). BEDTIME: Tretinoin to forehead and metronidazole to the rest of the face. Ordered: OV Est Pt Level 3 - 72827 - 15 min Lesion Skin Leg Leg- try lotrisone for 2 weeks. See me if not gone- ask for 30 min. biopsy time Ordered: OV Est Pt Level 3 - 77277 - 15 min Orders: clotrimazole-betamethasone topical, 1 wayne, Topical, 2xDay, 2 weeks to spot on left leg, # 15 gm, 0 Refill(s), Acute, Pharmacy: [facility] [id number] metroNIDAZOLE topical, 1 wayne, Topical, Daily AM, cheeks, nose folds, and chin 2x daily, # 1 bottle(s), 3 Refill(s), Maintenance, Pharmacy: [facility] [address] tretinoin topical, 1 wayne, Topical, Bedtime, forehead, # 30 gm, 5 Refill(s), Maintenance, Pharmacy: [facility] [id number] Electronically Signed By: TONI JOHN MD On: 04/28/2015 03:55 PM Source: [facility] POWERCHART Document Id: [id number] documented in this encounter Nursing Notes Whitney Zabala L.P.N. - 05/07/2015 12:03 PM CDT On line referral to [facility] Completed on line referral to [facility] to Endocrinology for fine needle aspiration right thyroid nodule. Electronically Signed By: WHITNEY ZABALA LPN On: 05/07/2015 12:05 PM Source: [facility] POWERCHART Document Id: [id number] documented in this encounter Miscellaneous Notes Miscellaneous - Toni John M.D. - 04/28/2015 3:51 PM CDT Ambulatory Patient Summary [address] [id number] Visit Information Name: YAMEL MARCELO [facility] Number: [id number] Current Date: 04/28/2015 15:51:48 Physicians Attending Provider: TONI JOHN MD Primary Care Provider: FELIX SANTOS [facility] YAMEL MARCELO has been given the following [...] 1 Tablet(s), Oral, three times a day clotrimazole-betamethasone topical (Lotrisone 1%-0.05% topical cream) 1 wayne, Topical, two times a day 2 weeks to spot on left leg New Routed to [facility] [address] [place], [place] [phone] *fluorouracil topical (fluorouracil 5% topical cream) 1 [...] cheeks, nose folds, and chin 2x daily This is a CHANGE Misc Prescription (Mis Prescription) amberen, once a day multivitamin (B-Complex 50) 1 Tablet(s), Oral, once a day omega-3 polyunsaturated fatty acids (Fish Oil 1000 mg oral capsule) 1 cap, Oral, once a day tretinoin topical (tretinoin 0.025% topical cream) 1 wayne, Topical, once a day (at bedtime) forehead This is a CHANGE verapamil (verapamil 180 mg/24 hours oral capsule, extended release) 1 cap, Oral, once a day for Reynaud's disease * You have let us know that you are not taking this medication as listed. Please talk with your primary care provider or the health care provider who prescribed the medication as soon as possible. Stop Taking the Following Medications: Medication list as of 04-28-15 15:51 Attention: If you have any medications at home that are not on this list, DO NOT take them until youcontact your provider for clarification. Give a copy of your medication list to your primary care provider. Update your medication list any time medications or doses are changed and carry your medication list at all times in case of emergency. Electronically Signed By: TONI JOHN MD Signed On:28-APR-2015 15:42:58 Your Allergies & Intolerances Substance Reaction Symptoms [...] Sun Damaged Skin Active Acne Rosacea Active Your Upcoming Appointments Date Time Location Provider 05/07/2015 08:15 [facility] Lab [facility] Lab 05/07/2015 08:30 [facility] Ultrasound [facility] US Room 1 Attention: Contact your local Clinic if further [...] if you dont have one. Go to [email or web address] and click on Create Your Account. Then, follow the directions to complete the online form. Youll be asked for your [facility] number which you can find at the top of this document. Your Goals/Additional instructions: Source: [facility] POWERCHART Document Id: [id number] Miscellaneous - Toni John M.D. - 04/28/2015 3:51 PM CDT Ambulatory Discharge Medication List [address] [id number] Visit Information Name: YAMEL MARCELO [facility] Number: [id number] Visit Date: 04/28/2015 15:51:46 Attending Provider: TONI JOHN MD Primary Care Provider: FELIX SANTOS CNP [facility] YAMEL ELLIS has been given the following list [...] 1 Tablet(s), Oral, three times a day clotrimazole-betamethasone topical (Lotrisone 1%-0.05% topical cream) 1 wayne, Topical, two times a day 2 weeks to spot on left leg New Routed to [address] [phone] *fluorouracil topical (fluorouracil 5% topical cream) 1 [...] cheeks, nose folds, and chin 2x daily This is a CHANGE Misc Prescription (Misc Prescription) amberen, once a day multivitamin (B-Complex 50) 1 Tablet(s), Oral, once a day omega-3 polyunsaturated fatty acids (Fish Oil 1000 mg oral capsule) 1 cap, Oral, once a day tretinoin topical (tretinoin 0.025% topical cream) 1 wayne, Topical, once a day (at bedtime) forehead This is a CHANGE verapamil (verapamil 180 mg/24 hours oral capsule, extended release) 1 cap, Oral, once a day for Reynaud's disease * You have let us know that you are not taking this medication as listed. Please talk with your primary care provider or the health care provider who prescribed the medication as soon as possible. Stop Taking the Following Medications: Medication list as of 04-28-15 15:51 Attention: If you have any medications at home that are not on this list, DO NOT take them until youcontact your provider for clarification. Give a copy of your medication list to your primary care provider. Update your medication list any time medications or doses are changed and carry your medication list at all times in case of emergency. Electronically Signed By: TONI JOHN MD Signed On:28-APR-2015 15:42:58 Additional Information: 1. For cracked skin on the ear or around it- use aquaphor for a couple days.Avoid metronidazole gel in those areas when irritated. 2. AM: Metronidazole to the whole face (including forehead). BEDTIME: Tretinoin to forehead and metronidazole to the rest of the face. 3. Leg- try lotrisone for 2 weeks. See me if not gone- ask for 30 min. 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 Intake/History Adult Fuel Handler Intake/History Entered On: 04/28/2015 15:31 CDT Performed On: 04/28/2015 15:29 CDT by EM ZHONG LPN Intake Chief Complaint : Spot on L leg, below knee Temperature Core : 37.2 DegC(Converted to: 99.0 DegF) Peripheral Pulse Rate : 80 /min Respiratory Rate : 12 /min (LOW) Systolic Blood Pressure : 124 mmHg Diastolic Blood Pressure : 74 mmHg NIBP Mean : 91 mmHg BP Location : Right upper extremity Blood Pressure Cuff Size : Regular Actual Weight : 81 kg(Converted to: 178 lb 9 oz) Weight Source : Standing scale Dosing Weight Clinic : 81 kg EM ZHONG LPN - 04/28/2015 15:29 CDT General Info Information Given By : Patient Languages : Lao Is Patient Female and 13-50 no hysterectomy : No EM ZHONG LPN - 04/28/2015 15:29 CDT Subjective Pain Symptoms : No EM ZHONG LPN - 04/28/2015 15:29 CDT Dependent Habits Tobacco Use/Currently Using : No Exposure to Tobacco Smoke : Other: Never Smoking Status : Never smoker EM ZHONG LPN - 04/28/2015 15:29 CDT Caffeine Use Grid Caffeine Use : Current Type : Soft drinks Frequency : Occasionally EM ZHONG LPN - 04/28/2015 15:29 CDT Recreational Drug Use Grid Drug Use : None EM ZHONG LPN - 04/28/2015 15:29 CDT Source: [facility] [employer] Document Id: [id number] CDT!32 documented in this encounter Plan of Treatment Not on filedocumented as of this encounter Visit Diagnoses Not on filedocumented in this encounter
--- OUTSIDE RECORDS SUMMARY | 2022-06-30 08:32 | XMS_ITS | Encounter Summary ---
:1960 Author Organization [facility] Address [address] [place] [address] Care Team Providers Name Role Phone Unavailable Primary Care Provider Unavailable Encounter Details Date Type Department Care Team Description 08/15/2014 Hospital Encounter HX [facility] Rell Fields M.D. [address], [place] [phone] (Wo rk) Social History [...] How often do you attend scientologist or latter-day More than 4 time s per year [...] Sign Reading Time Taken Comments Blood Pressure 98/62 08/15/2014 11:03 AM CDT Pulse 58 08/15/2014 11:03 AM CDT Temperature - - Respiratory Rate 14 08/15/2014 11:03 AM CDT Oxygen Saturation - - Inhaled Oxygen Concentration - - Weight 81.5 kg (179 lb 10.8 oz) 08/15/2014 11:03 AM CDT Height 179 cm (5' 10.47) 08/15/2014 11:03 AM CDT Body Mass Index 25.44 08/15/2014 11:03 AM CDT documented in this encounter Medications at Time of Discharge Medication Sig Dispensed Refills Start Date End Date B complex-vitamins (B Take 1 tablet by mouth 0 COMPLEX 1) tablet daily. calcium carbonate-vitamin Take 1 tablet by mouth 0 04/04/2012 D3 (CALCIUM 600 + D,3,) daily. 600 mg calcium- 200 unit capsule FSH/FLX/PRIM/CUR/BOR/OM3, Take 1 capsule by 0 05/2014 6,9 5 (OMEGA 3-6-9 FATTY mouth daily. ACIDS ORAL) xzxyeipdolql-Gx-nzav-mine Take 1 tablet by mouth 0 01/14/2010 rals tablet daily. UNABLE TO FIND daily. Amberen 0 09/30/2013 documented as of this encounter Progress Notes Raven Barber M.D. - 08/15/2014 10:51 AM CDT [id number] CHIEF COMPLAINT/REASON FOR VISIT Vaginal bleeding posthysterectomy. HISTORY OF PRESENT ILLNESS Amanda is a 54-year-old, nulliparous female, who is postoperative day #17, status post total laparoscopic hysterectomy, bilateral salpingectomy and cystoscopy, who presents for evaluation of vaginal bleeding in the postoperative period. Amanda reports that she had an episode of bleeding 2 nights ago, inwhich she passed a clot per her vagina but was unable to see the size of it. She has had fairly persistent vaginal bleeding since that time, but has been able to wear a pad all day each day. She has had no increasing pain. She denies fevers or chills, and otherwise she is doing well. She is voiding, ambulating, and having normal bowel movements without difficulty. This did occur after she had gone bal[place] k to work for half a day. MEDICATIONS See EMR. ALLERGIES See EMR. SYSTEMS [...] Well-nourished female, in no acute distress. PELVIC: External genitalia without lesions or abnormalities. Normal pubic hair distribution. Urethral meatus normal in location and appearance, without masses. Vaginal mucosa pink and moist with a small amount of bright red blood noted at the vaginal cuff apex. When examined with a speculum, there is a small amount of mucosal separation with a small amount of bleeding noted from the anterior aspect of the separation in the midline. I cannot see into the right corner. There also appears to be a smallamount of bleeding from the right corner. Once the area was swabbed, silver nitrate was applied to the mucosal edge in the midline. However, this could not be applied into the right corner because it co uld not be visualized completely. Following application of silver nitrate in the midline, the bleeding was extremely scant. A dime-sized amount of Premarin cream was applied to the vaginal cuff apex with a Q-tip. Prior to that application, the vaginal cuff apex was probed and was noted to be intact. ABDOMEN: Soft, nondistended, nontender. Normoactive bowel sounds. Infraumbilical and right lower quadrant port sites are healing well. LOWER EXTREMITIES: Nontender, no edema. IMPRESSION/REPORT/PLAN A 54-year-old, nulliparous female, who is postoperative day #17, status post total laparoscopic hysterectomy, bilateral salpingectomy and cystoscopy, who presents for followup of vaginal bleeding todayand was noted to have a small amount of mucosal edge separation at the vaginal cuff apex, in which silver nitrate was applied to control the bleeding. 1. Vaginal bleeding posthysterectomy. As noted above, there is a small amount of bleeding noted fromthe mucosal edge. Where this could be visualized in the midline, silver nitrate was applied. Premarin cream was then applied to the vaginal cuff apex. The bleeding is very minimal. At this point, I recommend that the patient apply Estrace cream 0.5 g nightly until I am in contact with her again on Monday, which is in 3 days. I will plan probably a week-long course at minimum, possibly 2 weeks. Once Daniel in touch with her on Monday to find out how the bleeding is going, we will figure out a followup plan at that point. If the bleeding gets heavier prior to that time, to the point where she is passing large clots as she did two nights ago and this is persistent, then she will need to come in over the weekend. However, I do not anticipate this. The vaginal cuff was probed and noted to be intact. Otherwise, the patient is doing well postoperatively. 2. Followup. The patient will call my nurse in 3 days to let us know how she is doing. Raven Barber M.D./rui Electronically Signed By: RAVEN BARBER MD On: 08/19/2014 02:32 PM Source: [facility] MHSDOLBEYNONRADSYS Document Id: [id number] ER GRADER documented in this encounter Miscellaneous Notes Telephone Encounter - Forrest Fishman LKarolPKarolN. - 08/26/2014 10:52 AM OYSTER GRADER *Phone Message Document Contains Addenda Addendum by FORREST FISHMAN on 26 August 2014 13:19:41 OYSTER GRADER Patient notified. Addendum by RAVEN BARBER MD on 26 August 2014 13:00:04 OYSTER GRADER From: RAVEN BARBER MD To: Obstetrics/Gynecology Nurse; Sent: 08/26/2014 13:00:04 OYSTER GRADER Subject: RE: *Phone Message Please let Amanda know that as long as the bleeding is light, it is not worry some. Occasional bleeding from the top of the vagina where it was stitched together and is healing can occur as the stitchesstart to dissolve. If the bleeding becomes heavy like a period, she has associated pain, or fevers or chills, then I would need to know about this immediately. From: FORREST FISHMAN ( Obstetrics/Gynecology Nurse) To: RAVEN BARBER MD; Sent: 08/26/2014 10:52:04 OYSTER GRADER Subject: *Phone Message Caller is: ( X ) Patient ( ) Mother ( ) Father ( ) Spouse ( ) Daughter ( ) Son ( ) Pharmacy ( ) Other: Physician: Patient MRN #: Reason for Call: Patient called and stated that on Monday afternoon, she had some bleeding that was bright red and it was not heavy. She stated that the only thing she did that day was a load of laundry. She stated that Monday there was no bleeding and none since. She wanted to know if this was normal and what could of caused this? Her follow up appt. is 09/09/14. Ok to leave a message. Message: Advice/Action: Source used: ( ) Verbalizes understanding [...] back cell phone number ( ) Source: [facility] POWERCHART Document Id: [id number] Electronically signed by [facility] Driver License Technician [id number] at 03/14/2017 3:01 AM CDT Telephone Encounter - Forrest Fishman LKarolPKarolN. - 08/18/2014 8:46 AM OYSTER GRADER *Phone Message Document Contains Addenda Addendum by FORREST FISHMAN on 18 August 2014 14:32:50 OYSTER GRADER Patient notified. Addendum by FORREST FISHMAN on 18 August 2014 13:12:59 OYSTER GRADER Left message for patient to return call. Addendum by RAVEN BARBER MD on 18 August 2014 13:06:33 OYSTER GRADER From: RAVEN BARBER MD To: Obstetrics/Gynecology Nurse; Sent: 08/18/2014 13:06:33 OYSTER GRADER Subject: RE: *Phone Message She can go back to work now, but only for half days until she is sure she will do OK with that. Then, she can go to full days. I would like to see her in 2 weeks and she should continue to use the estrogen cream nightly until then. From: FORREST FISHMAN ( Obstetrics/Gynecology Nurse) To: RAVEN BARBER MD; Sent: 08/18/2014 08:46:20 OYSTER GRADER Subject: *Phone Message Caller is: ( X ) Patient ( ) Mother ( ) Father ( ) Spouse ( ) Daughter ( ) Son ( ) Pharmacy ( ) Other: Physician: Patient MRN #: Reason for Call: Patient called and wanted to update you on her status. Pt. stated that the only bleeding she has had since Monday was light spotting on Sat. and nothing on Monday. Pt. wanted to know when you would like to see her next and when she is able to go back to work. Message: Advice/Action: Source used: ( ) Verbalizes understanding [...] back cell phone number ( ) Source: [facility] POWERCHART Document Id: [id number] Electronically signed by Sven [facility] Driver License Technician [id number] at 03/14/2017 3:01 AM CDT Miscellaneous - Raven Barber M.D. - 08/17/2014 12:13 PM CST Ambulatory Patient Summary [address] [id number] Visit Information Name: AMANDA MARCELO [facility] Number: [id number] Visit Date: 08/17/2014 12:13:27 Attending Provider: RAVEN BARBER MD Primary Care Provider: FELIX SANTOS COMMUNICATION SIGNALS INTELLIGENCE AMANDA MARCELO has been given the following list of medications: Your Medications It is important to take your medications as directed. Use a pill box or chart to help remind you to take your medications. Please let your doctor or nurse know if you have problems taking your medications. Medication/Strength How to Take Indications/Special Instructions/Comments/Notes for Patient Medication Changes/Routing atorvastatin (atorvastatin 10 mg oral tablet) 1 Tablet(s), Oral, once a day (at bedtime) calcium-vitamin D (Calcium 600+D) 1 Tablet(s), Oral, three times a day estradiol topical (Estrace Vaginal 0.1 mg/g vaginal cream) 0.5 gram, Vaginal, once a day (at bedtime) New Routed to [address] [id number] ibuprofen (ibuprofen 600 mg oral tablet) 1 Tablet(s), Oral, four times a day as needed for Pain magnesium citrate (magnesium citrate) 300 Milliliter, Oral, once metroNIDAZOLE topical (metroNIDAZOLE 0.75% topical gel) 1 wayne, Topical, two times a day to whole face Misc Prescription (Misc Prescription) amberen, once a day multivitamin (Vitamin B Complex oral tablet) 1 Tablet(s), Oral, once a day multivitamin (B-Complex 50) 1 Tablet(s), Oral, once a day ofloxacin otic (Floxin Otic 0.3% otic solution) 5 Drops, Ear(Right), two times a day omega-3 polyunsaturated fatty acids (Fish Oil 1000 mg oral capsule) 1 cap, Oral, once a day spironolactone (spironolactone 25 mg oral tablet) 1 Tablet(s), Oral, two times a day verapamil (verapamil 180 mg/24 hours oral capsule, extended release) 1 cap, Oral, once a day for Reynaud's disease Stop Taking the Following Medications: Medication list as of 08-17-14 12:13 Attention: If you have any medications at home that are not on this list, DO NOT take them until youcontact your provider for clarification. Give a copy of your medication list to your primary care provider. Update your medication list any time medications or doses are changed and carry your medication list at all times in case of emergency. Electronically Signed By: RAVEN BARBER MD Signed On:17-AUG-2014 12:13:17 Additional Information: Source: [facility] POWERCHART Document Id: [id number] ER GRADER Miscellaneous - Raven Barber M.D. - 08/17/2014 12:13 PM CST Ambulatory Discharge Medication List [address] [id number] Visit Information Name: FOZIA AMANDA ELLIS [facility] Number: [id number] Visit Date: 08/17/2014 12:13:25 Attending Provider: RAVEN BARBER MD Primary Care Provider: FELIX SANTOS COMMUNICATION SIGNALS INTELLIGENCE AMANDA MARCELO has been given the following list of medications: Your Medications It is important to take your medications as directed. Use a pill box or chart to help remind you to take your medications. Please let your doctor or nurse know if you have problems taking your medications. Medication/Strength How to Take Indications/Special Instructions/Comments/Notes for Patient Medication Changes/Routing atorvastatin (atorvastatin 10 mg oral tablet) 1 Tablet(s), Oral, once a day (at bedtime) calcium-vitamin D (Calcium 600+D) 1 Tablet(s), Oral, three times a day estradiol topical (Estrace Vaginal 0.1 mg/g vaginal cream) 0.5 gram, Vaginal, once a day (at bedtime) New Routed to [place] [address] [place], [place] [phone] ibuprofen (ibuprofen 600 mg oral tablet) 1 Tablet(s), Oral, four times a day as needed for Pain magnesium citrate (magnesium citrate) 300 Milliliter, Oral, once metroNIDAZOLE topical (metroNIDAZOLE 0.75% topical gel) 1 wayne, Topical, two times a day to whole face Misc Prescription (Misc Prescription) amberen, once a day multivitamin (Vitamin B Complex oral tablet) 1 Tablet(s), Oral, once a day multivitamin (B-Complex 50) 1 Tablet(s), Oral, once a day ofloxacin otic (Floxin Otic 0.3% otic solution) 5 Drops, Ear(Right), two times a day omega-3 polyunsaturated fatty acids (Fish Oil 1000 mg oral capsule) 1 cap, Oral, once a day spironolactone (spironolactone 25 mg oral tablet) 1 Tablet(s), Oral, two times a day verapamil (verapamil 180 mg/24 hours oral capsule, extended release) 1 cap, Oral, once a day for Reynaud's disease Stop Taking the Following Medications: Medication list as of 08-17-14 12:13 Attention: If you have any medications at home that are not on this list, DO NOT take them until youcontact your provider for clarification. Give a copy of your medication list to your primary care provider. Update your medication list any time medications or doses are changed and carry your medication list at all times in case of emergency. Electronically Signed By: RAVEN BARBER MD Signed On:17-AUG-2014 12:13:17 Additional Information: [facility] POWER[facility] Document Id: [id number] ER GRADER Miscellaneous - Forrest Fishman L.PKarolNKarol - 08/15/2014 11:03 AM CDT Adult Loading Dock Helper Intake/History Adult Loading Dock Helper Intake/History Entered On: 08/15/2014 11:04 CDT Performed On: 08/15/2014 11:03 CDT by FORREST FISHMAN Intake Chief Complaint : Recheck- post op vaginal bleeding Peripheral Pulse Rate : 58 /min (LOW) Respiratory Rate : 14 /min Heart Rhythm : Regular Systolic Blood Pressure : 98 mmHg Diastolic Blood Pressure : 62 mmHg NIBP Mean : 74 mmHg BP Location : Left upper extremity Blood Pressure Cuff Size : Regular Height : 179 cm(Converted to: 5 ft 10 inch(es), 70 inch(es)) Actual Weight : 81.5 kg(Converted to: 179 lb 11 oz) Weight Source : Standing scale Dosing Weight Clinic : 81.5 kg Clinic BSA : 2.01 Body Mass Index : 25.44 kg/m2 KADIMARIFORREST L - 08/15/2014 11:03 CDT General Info Languages : Sinhala Is Patient Female and 13-50 no hysterectomy : No FORREST FISHMAN - 08/15/2014 11:03 CDT Subjective Pain Symptoms : No FORREST FISHMAN - 08/15/2014 11:03 CDT Dependent Habits Tobacco Use/Currently Using : No Exposure to Tobacco Smoke : Other: Never Smoking Status : Never smoker FORREST FISHMAN - 08/15/2014 11:03 CDT Caffeine Use Grid Caffeine Use : Current Type : Soft drinks Frequency : Occasionally FORREST FISHMAN 08/15/2014 11:03 CDT Recreational Drug Use Grid Drug Use : None FORREST FISHMAN 08/15/2014 11:03 CDT ID Screen Travel Within Last 21 Days : No FORREST FISHMAN 08/15/2014 11:03 CDT [facility] POWERCH[facility] Document Id: [id number] CDT!36 documented in this encounter Plan of Treatment Not on filedocumented as of this encounter Visit Diagnoses Not on filedocumented in this encounter
--- OUTSIDE RECORDS SUMMARY | 2022-06-30 08:32 | XMS_ITS | Encounter Summary ---
:1960 Author Organization [facility] Address [address] [place] [address] Care Team Providers Name Role Phone Unavailable Primary Care Provider Unavailable Encounter Details Date Type Department Care Team Description 08/28/2014 Hospital Encounter [facility]X [facility] Shana John M.D. [address] [facility], [address] [place], [place] [address] (Wo rk) Social History [...] or relatives? How often do you attend catholic or jainism More than 4 time s per year 02/02/2021 services? Do you belong to any clubs or organizations No 02/02/2021 such as catholic groups, unions, fraternal or athletic groups, [...] place to sleep or slept in a halfway (including now)? Sex Assigned at Date Recorded Not on file documented as of this encounter Last Filed Vital Signs Vital Sign Reading Time Taken Comments Blood Pressure - - Pulse - - Temperature - - Respiratory Rate - - Oxygen Saturation - - Inhaled Oxygen Concentration - - Weight - - Height 179 cm (5' 10.47) 08/28/2014 9:15 AM HAND SEWER Body Mass Index - - documented in [...] (OMEGA 3-6-9 FATTY mouth daily. ACIDS ORAL) kqmpfifxnfsj-Yv-taza-mine Take 1 tablet by mouth 0 01/14/2010 rals tablet daily. UNABLE TO FIND daily. Amberen 0 09/30/2013 documented as of this encounter Miscellaneous Notes Miscellaneous - Toni John M.D. - 08/29/2014 3:08 PM CST lab From: TONI JOHN MD To: YAMEL MARCELO Sent: 08/29/2014 15:08:56 HAND SEWER Subject: lab normal potassium Results: Date Result Name Value Ref Range 08/28/2014 09:20 Potassium Lvl 4.8 mmol/L (3.5 - 4.8) Source: [facility] POWERCHART Document Id: [id number] Electronically signed by Conversion, [facility] Assistant Passenger Locomotive Engineer [id number] at 03/15/2017 12:05 AM CDT documented in this encounter Plan of Treatment Not on filedocumented as of this encounter Procedures Procedure Name Priority Date/Time Associated Diagnosis Comme nts POTASSIUM, S/P Routine 08/28/2014 9:20 AM Results for this HAND SEWER procedure are i n the results section . documented in this encounter Results Potassium (08/28/2014 9:20 AM HAND SEWER) P athologist Signature Potassium, S 4.8 3.5 - 4.8 POWERCHART MMOLL Specimen (Source) Anatomical Collection Method Collection Time Re ceived Time Location / / Volume Laterality Blood 08/28/2014 9:20 AM HAND SEWER Toni John M.D. LAB BLOOD ADD-ON Performing Organization Address City/State/ZIP Code Phon e Number POWERCHART documented in this encounter Visit Diagnoses Not on filedocumented in this encounter
--- OUTSIDE RECORDS SUMMARY | 2022-06-30 08:32 | XMS_ITS | Encounter Summary ---
:1960 Author Organization [facility] Address [address] [place] [address] Care Team Providers Name Role Phone Unavailable Primary Care Provider Unavailable Encounter Details Date Type Department Care Team Description 11/28/2014 Hospital Encounter HX [facility] Felix Santos, Alejandra DE LA GARZA, C.N.P. [address] [place], [place] [phone] (Wo rk) Social History [...] or relatives? How often do you attend mosque or temple More than 4 time s per year 02/02/2021 services? Do you belong to any clubs or organizations No 02/02/2021 such as mosque groups, unions, fraternal or athletic groups, or [...] - - Height 178 cm (5' 10.08) 11/28/2014 8:19 AM TECHNICAL ILLUSTRATIONS MAP INKER Body Mass Index - - documented in [...] (OMEGA 3-6-9 mouth daily. FATTY ACIDS ORAL) wstpmipsxbom-Ka-hfxu-min Take 1 tablet by 0 01/14 erals tablet mouth daily. UNABLE TO FIND daily. Amberen 0 09/30/2013 ketoconazole Apply 1 application 0 09/30/2014 (for_NIZORAL) 2 % topically 2 (two) shampoo times a week. metroNIDAZOLE Apply 1 application 0 09/30/2014 (for_ROSADAN) 0.75 % gel topically every morning. documented as of this encounter Miscellaneous Notes Miscellaneous - Felix Santos, ASHIA, C.N.P. - 12/02/2014 9:20 AM CST Normal Results Letter 02 December 2014 YAMEL MARCELO [address] [facility] [id number] Dear YAMEL MARCELO, I am pleased to report that your results from the following diagnostic test(s) are normal. Please follow up with us as we discussed during your visit or sooner if you have any concerns. If you have questions or concerns, please do not hesitate to call our office. Result Name Current Result Previous Result Normal Range AST (unit/L) 25 11/28/2014 24 09/29/2014 8 - 43 Cholesterol (mg/dL) 195 11/28/2014 194 09/29/2014 0 - 200 Trig (mg/dL) 91 11/28/2014 72 09/29/2014 0 - 150 HDL (mg/dL) (H) 63.0 11/28/2014 (H) 66.0 09/29/2014 40.0 - 60.0 LDL Calculated (mg/dL) (H) 114 11/28/2014 (H) 114 09/29/2014 0 - 100 Chol/HDL Ratio 3 11/28/2014 3 09/29/2014 Sincerely, FELIX SANTOS [address] [place], [place] [phone] Electronic Signature Electronically Signed By: FELIX SANTOS EDITOR & CO FOUNDER On: 02 December 2014 This document has images extracted. Source: [facility] NetIQ Document Id: [id number] Electronically signed by Conversion, [facility] Project Development Engineer [id number] at 03/12/2017 9:02 PM CDT Miscellaneous - Felix Santos, ASHIA, C.N.P. - 12/02/2014 9:19 AM CST From: FELIX SANTOS EDITOR & CO FOUNDER To: YAMEL MARCELO Sent: 12/02/2014 09:19:52 TECHNICAL ILLUSTRATIONS MAP INKER Yamel, Cholesterol looks good. Felix Results: Date Result Name Ind Value Ref Range 11/28/2014 08:38 AST 25 unit/L (8 - 43) 11/28/2014 08:38 Cholesterol 195 mg/dL (0 - 200) 11/28/2014 08:38 Trig 91 mg/dL (0 - 150) 11/28/2014 08:38 HDL (H) 63.0 mg/dL (40.0 - 60.0) 11/28/2014 08:38 LDL Calculated (H) 114 mg/dL (0 - 100) 11/28/2014 08:38 Chol/HDL Ratio 3 Source: [facility] NetIQ Document Id: [id number] Electronically signed by Conversion, [facility] Project Development Engineer [id number] at 03/12/2017 9:02 PM CDT documented in this encounter Plan of Treatment Not on filedocumented as of this encounter Procedures Procedure Name Priority Date/Time Associated Comments Diagnosis LIPID PANEL, S Routine 11/28/2014 8:38 Results fo r this AM TECHNICAL ILLUSTRATIONS MAP INKER procedure are i n the results section. ASPARTATE Routine 11/28/2014 8:38 Results for this AMINOTRANSFERASE (AST), AM TECHNICAL ILLUSTRATIONS MAP INKER proc edure are in S/P the results section. documented in this encounter Results AST (Aspartate Aminotransferase) (11/28/2014 8:38 AM TECHNICAL ILLUSTRATIONS MAP INKER) [facility] gist Method Time Signature Aspartate 25 8 - 43 POWERCHART Aminotransferase UNITL (AST), S Specimen (Source) Anatomical Collection Method Collection Time Re ceived Time Location / / Volume Laterality Blood 11/28/2014 8:38 AM TECHNICAL ILLUSTRATIONS MAP INKER Klaudia Paz APRN.N.P. LAB BLOOD ADD-ON Performing Organization Address City/State/ZIP Code Phon e Number POWERCHART (ABNORMAL) Lipid Panel (11/28/2014 8:38 AM TECHNICAL ILLUSTRATIONS MAP INKER) [facility] gist Method Time Signature Cholesterol, 195 0 - 200 POWERCHART Total MGDL HX HDL 63.0 (H) 40.0 - POWERCHART 60.0 MGDL Triglycerides 91 0 - 150 POWERCHART MGDL Calculated LDL 114 (H) 0 - 100 POWERCHART MGDL Total 3 POWERCHART Cholesterol/HDL Ratio Specimen (Source) Anatomical Collection Method Collection Time Re ceived Time Location / / Volume Laterality Blood 11/28/2014 8:38 AM TECHNICAL ILLUSTRATIONS MAP INKER Felix Santos APRN, C.N.P. LAB BLOOD ADD-ON Performing Organization Address City/State/ZIP Code Phon e Number POWERCHART documented in this encounter Visit Diagnoses Not on filedocumented in this encounter
--- OUTSIDE RECORDS SUMMARY | 2022-06-30 08:32 | XMS_ITS | Encounter Summary ---
:1960 Author Organization [facility] Address [address] [place] [address] Care Team Providers Name Role Phone Unavailable Primary Care Provider Unavailable Encounter Details Date Type Department Care Team Description 08/12/2014 Hospital Encounter HX [facility] Rell Fields M.D. [address] [place], [place] [phone] (Wo rk) Social History [...] or relatives? How often do you attend hoahaoism or tenriism More than 4 time s per year 02/02/2021 services? Do you belong to any clubs or organizations No 02/02/2021 such as hoahaoism groups, unions, fraternal or athletic groups, or [...] slept in a skilled nursing (including now)? Sex Assigned at Date Recorded Not on file documented as of this encounter Last Filed Vital Signs Vital Sign Reading Time Taken Comments Blood Pressure 82/50 08/12/2014 4:06 PM CDT Pulse 62 08/12/2014 4:06 PM CDT Temperature - - Respiratory Rate 14 08/12/2014 4:06 PM CDT Oxygen Saturation - - Inhaled Oxygen Concentration - - Weight 82.6 kg (182 lb 1.6 oz) 08/12/2014 4:06 PM CDT Height 179 cm (5' 10.47) 08/12/2014 4:06 PM CDT Body Mass Index 25.78 08/12/2014 4:06 PM CDT documented in this encounter Medications [...] (OMEGA 3-6-9 FATTY mouth daily. ACIDS ORAL) qqpnnoirvuif-Uy-jtab-mine Take 1 tablet by mouth 0 01/14/2010 rals tablet daily. UNABLE TO FIND daily. Amberen 0 09/30/2013 documented as of this encounter Progress Notes Kina Barber M.D. - 08/12/2014 3:53 PM CDT [id number] CHIEF COMPLAINT/REASON FOR VISIT Postop incision check. HISTORY OF PRESENT ILLNESS Yamel is a 54-year-old, nulliparous female, who is postoperative day #14 status post total laparoscopic hysterectomy, bilateral salpingectomy, cystoscopy, who presents for incision check today. Yamel is doing very well. She is voiding, ambulating, and tolerating a regular diet without difficulty and having normal bowel movements. She denies any incisional pain or pain otherwise. She has had occasional minimal vaginal spotting since the surgery. MEDICATIONS See EMR. ALLERGIES See EMR. SYSTEMS [...] GENERAL: Well-nourished female, in no acute distress. ABDOMEN: Soft, nondistended, nontender, normoactive bowel sounds. The infraumbilical and right lowerquadrant port sites are clean, dry, intact, and healing well and they are without erythema, drainage, or other signs of infection. LOWER EXTREMITIES: Nontender, no edema. IMPRESSION/REPORT/PLAN A 54-year-old year old nulliparous female, who is postoperative day #14 status post total laparoscopic hysterectomy, bilateral salpingectomy and cystoscopy, who presents for incision check today. 1. Postoperative progress: The patient is making excellent postoperative progress. 2. Followup: One month. Kina Barber M.D./rui Electronically Signed By: KINA BARBER MD On: 08/17/2014 02:00 PM Source: [facility] MHSDOLBEYNONRADSYS Document Id: [id number] SING MACHINE TENDER documented in this encounter Miscellaneous Notes Telephone Encounter - Conversion, Historical Provider Ser - 08/14/2014 9:54 AM CDT *Phone Message/dr barber Document Contains Addenda Addendum by GRISELDA FISHMAN on 15 August 2014 09:06:28 CDT Patient added to schedule. Addendum by KINA BARBER MD on 14 August 2014 18:46:42 CDT From: KINA BARBER MD To: Obstetrics/Gynecology Nurse; Sent: 08/14/2014 18:46:42 CDT Subject: RE: *Phone Message/dr barber Please add her in at 11:00 am for a visit to assess the bleeding. Addendum by GRISELDA FISHMAN on 14 August 2014 10:20:57 CDT From: GRISELDA FISHMAN ( Obstetrics/Gynecology Nurse) To: KINA BARBER MD; Sent: 08/14/2014 10:20:57 CDT Subject: FW: *Phone Message/dr barber Spoke with patient. She stated that last night around 8pm, she felt a gush come out of her vagina. She stated that a lot of bright red blood came out along with a couple of blood clots. She also c/o blood in her stool. Along with the bleeding, she had some sharp pains in her stomach. 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 She also walked up some stairs at work. Pt. wanted to know what could have caused this and to see if she can still go back to work. She stated that she would like to go in tomorrow for a couple of hours but if you suggest that she stays home to rest she will. Please advise. From: AYAAN DE LA TORRE ( [place] [employer] Technician) To: Obstetrics/Gynecology Nurse; Sent: 08/14/2014 09:54:01 CDT Subject: *Phone Message/dr barber Caller is: ( x ) Patient ( ) Mother ( ) Father ( ) Spouse ( ) Daughter ( ) Son ( ) Pharmacy ( ) Other: Physician: Patient MRN #: Reason for Call: S had hysterectomy a couple of weeks ago B started bleeding last night A R please [phone] Message: Advice/Action: Source used: ( ) Verbalizes [...] back cell phone number ( ) Source: [facility] POWERCHART Document Id: [id number] Miscellaneous - Kina Barber M.D. - 08/12/2014 4:25 PM CDT Ambulatory Patient Summary [address] [id number] Visit Information Name: YAMEL MARCELO [facility] Number: [id number] Visit Date: 08/12/2014 16:25:21 Attending Provider: KINA BARBER MD Primary Care Provider: FELIX SANTOS [facility] FOZIA YAMEL ELLIS has been given the following [...] 1 Tablet(s), Oral, three times a day ibuprofen (ibuprofen 600 mg oral tablet) 1 [...] the Following Medications: Medication list as of 08-12-14 16:25 Attention: If you have any medications at [...] Electronically Signed By: KINA BARBER MD Signed On:12-AUG-2014 16:25:12 Additional Information: Source: [facility] POWERCHART Document Id: [id number] Miscellaneous - Kina Barber M.D. - 08/12/2014 4:25 PM CDT Ambulatory Discharge Medication List [address] [id number] Visit Information Name: FOZIA YAMEL ELLIS [facility] Number: [id number] Visit Date: 08/12/2014 16:25:19 Attending Provider: KINA BARBER MD Primary Care Provider: FELIX SANTOS CNP FOZIA YAMEL ELLIS has been given the following [...] 1 Tablet(s), Oral, three times a day ibuprofen (ibuprofen 600 mg oral tablet) 1 [...] the Following Medications: Medication list as of 08-12-14 16:25 Attention: If you have any medications at [...] Electronically Signed By: KINA BARBER MD Signed On:12-AUG-2014 16:25:12 Additional Information: Source: [facility] POWERCHART Document Id: [id number] Miscellaneous - Griselda Fishman, L.P.N. - 08/12/2014 4:06 PM CDT Adult Patient Safety Officer Intake/History Adult Patient Safety Officer Intake/History Entered On: 08/12/2014 16:07 CDT Performed On: 08/12/2014 16:06 CDT by GRISELDA FISHMAN Intake Chief Complaint : 2 week post op check Peripheral Pulse Rate : 62 /min Respiratory Rate : 14 /min Heart Rhythm : Regular Systolic Blood Pressure : 82 mmHg (<LLOW) Diastolic Blood Pressure : 50 mmHg (LOW) NIBP Mean : 61 mmHg BP Location : Right upper extremity Blood Pressure Cuff Size : Regular Height : 179 cm(Converted to: 5 ft 10 inch(es), 70 inch(es)) Actual Weight : 82.6 kg(Converted to: 182 lb 2 oz) Weight Source : Standing scale Dosing Weight Clinic : 82.6 kg Clinic BSA : 2.03 Body Mass Index : 25.78 kg/m2 GRISELDA FISHMAN Brandyn 08/12/2014 16:06 CDT General Info Languages : [place] Rican Is Patient Female and 13-50 no hysterectomy : No GRISELDA FISHMAN Brandyn 08/12/2014 16:06 CDT Subjective Pain Symptoms : No GRISELDA FISHMAN Brandyn 08/12/2014 16:06 CDT Dependent Habits Tobacco Use/Currently Using : No Exposure to Tobacco Smoke : Other: Never Smoking Status : Never smoker GRISELDA FISHMAN Brandyn 08/12/2014 16:06 CDT Caffeine Use Grid Caffeine Use : Current Type : Soft drinks Frequency : Occasionally GRISELDA FISHMAN Brandyn 08/12/2014 16:06 CDT Recreational Drug Use Grid Drug Use : None GRISELDA FISHMAN Brandyn 08/12/2014 16:06 CDT ID Screen Travel Within Last 21 Days : No GRISELDA FISHMAN Brandyn 08/12/2014 16:06 CDT Source: [employer] Document Id: [id number] CDT!36 documented in this encounter Plan of Treatment Not on filedocumented as of this encounter Visit Diagnoses Not on filedocumented in this encounter
--- OUTSIDE RECORDS SUMMARY | 2022-06-30 08:32 | XMS_ITS | Encounter Summary ---
:1960 Author Organization [facility] Address [address] [place] [address] Care Team Providers Name Role Phone Unavailable Primary Care Provider Unavailable Encounter Details Date Type Department Care Team Description 09/30/2014 Hospital Encounter HX [facility] FAMILYPRA Shana John M.D. [address] [facility], [address] [place], [place] [address] (Wo rk) Social History [...] How often do you attend scientologist or rastafarian More than 4 time s per year [...] Sign Reading Time Taken Comments Blood Pressure 98/64 09/30/2014 4:00 PM COPY LATHE OPERATOR Pulse 68 09/30/2014 4:00 PM COPY LATHE OPERATOR Temperature - - Respiratory Rate 16 09/30/2014 4:00 PM COPY LATHE OPERATOR Oxygen Saturation - - Inhaled Oxygen Concentration - - Weight 83 kg (182 lb 15.7 oz) 09/30/2014 4:00 PM COPY LATHE OPERATOR Height 179 cm (5' 10.47) 09/30/2014 4:00 PM COPY LATHE OPERATOR Body Mass Index 25.9 09/30/2014 4:00 PM COPY LATHE OPERATOR documented in this encounter Medications at Time [...] (OMEGA 3-6-9 mouth daily. FATTY ACIDS ORAL) refjapzxujpx-Cz-igmw-min Take 1 tablet by 0 01/14 erals tablet mouth daily. UNABLE TO FIND daily. Amberen 0 09/30/2013 ketoconazole Apply 1 application 0 09/30/2014 (for_NIZORAL) 2 % topically 2 (two) shampoo times a week. metroNIDAZOLE Apply 1 application 0 09/30/2014 (for_ROSADAN) 0.75 % gel topically every morning. documented as of this encounter Progress Toni Chowdhury M.D. - 09/30/2014 4:12 PM CST Clinic Full Note CHIEF COMPLAINT/REASON FOR VISIT no change with oily skin HISTORY OF PRESENT ILLNESS From last visit: Nose- nirmal hyperplasia- large pores scalp- flakey MEDICATIONS atorvastatin 20 mg oral tablet, 20 mg, 1 tab(s), PO, Bedtime, 3 refills B-Complex 50, 1 tab(s), PO, Daily Calcium 600+D, 1 tab(s), PO, 3xDay Estrace Vaginal 0.1 mg/g vaginal cream, 0.5 gm, Vaginal, Bedtime, 0 refills Fish Oil 1000 mg oral capsule, 1,000 mg, 1 cap(s), PO, Daily Floxin Otic 0.3% otic solution, 5 drop(s), Ear(Right), 2xDay, 0 refills, * ibuprofen 600 mg oral tablet, 600 mg, 1 tab(s), PO, 4xDay, PRN, * magnesium citrate, 300 mL, PO, Once metroNIDAZOLE 0.75% topical gel, 1 wayne, to whole face, Topical, 2xDay, 0 refills Misc Prescription, amberen, Daily spironolactone 25 mg oral tablet, 25 mg, 1 tab(s), PO, 2xDay, 0 refills, * verapamil 180 mg/24 hours oral capsule, extended release, 180 mg, 1 cap(s), for Reynaud's disease, PO, Daily, 3 refills Vitamin B Complex oral tablet, 1 tab(s), PO, Daily * indicates non-compliance ALLERGIES NKA PAST MEDICAL HISTORY Chronic Dermatitis Seborrheic NOS Hypercholesterolemia 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 Nodule Lung Nodule Thyroid NOS Perimenopausal Raynaud's disease Varicose veins Historical Abnormal Pap smear of cervix with low-grade squamous intraepithelial lesion Raynaud's Phenomena Without Gangrene PROCEDURES/SURGICAL HISTORY Total laparoscopic hysterectomy (07/29/2014), CT scan (04/24/2014), Colonoscopy, flexible, proximal to splenic flexure; diagnostic, with or without collection of specimen(s) by brushing or washing, with or without colon decompression (separate procedure) (06/14/2012), Colposcopy of the entire vagina, with cervix if present; (03/31/2010), Cytopathology, cervical or vaginal (any reporting system), collected in preservative fluid, automated thin layer preparation; manual screening under physician supervision (03/23/2010), Screening mammography, bilateral (2-view film study of each breast) (03/23/2010), Skin cancer (01/28/2010), Lipid panel This panel must include the following: Cholesterol, serum, total (04449) Lipoprotein, direct measurement, high density cholesterol (HDL cholesterol) (36270) Triglycerides (82653). (01/15/2010), Varicose vein stripping (03/30/2006), Ovarian cystectomy (03/30/1987). SOCIAL HISTORY Date Time: 09/30/2014 16:00 Tobacco: Smoking Status: Never smoker Exposure: Other: Never Alcohol: Use: No Results Found Recreational Drugs: Use: None Type: No Results Found FAMILY HISTORY Mother ( at 69 year(s)):Positive: Brain tumor; Hyperlipidemia Father:Positive: Skin cancer Sister: Negative: Brother: Negative: Sister: Negative: Brother: Negative: SYSTEMS REVIEW otherwise negative VITAL SIGNS T: 37.4 ??C (Core) RR: 16 BP: 98 / 64 HT: 179 cm WT: 83 kg BMI: 25.9 PHYSICAL EXAMINATION General: No acute distress Skin: + inflammatory acne noted on the forehead, large pores scalp- no flaking today Chest- sun damaged skin noted. IMPRESSION/REPORT/PLAN Dermatitis Seborrheic NOS 1. Recheck scalp and face- 3-6 months. 2. Yearly skin checks- Sunblock spf 30 every 2 hours to skinwhile in the sun. moderately atypical mole left lower leg- [1] IMPRESSION/REPORT/PLAN Acne Rosacea . Face: Start with every other night (tretinoin) for a couple weeks, then it not itchy or really red it is ok to try nightly. Ordered: OV Est Pt Level 4 - 59840 - 25 min Dermatitis Seborrheic NOS continue ketoconazole shampoo 2x weekly Ordered: OV Est Pt Level 4 - 25235 - 25 min Sun Damaged Skin, Sun Damaged Skin 25 minutes spent with patient more than half of that on counseling on medications and plan on flourouracil, 1. Chest: Recheck 2 weeks after starting medication and at 4 weeks after. Orders: fluorouracil topical, 1 wayne, Topical, Bedtime, 4 weeks to the chest (apply with gloves), # 40 gm, 0Refill(s), Maintenance, Pharmacy: [facility] [address] ketoconazole topical, 1 wayne, Topical, 2xWeek, # 120 mL, 3 Refill(s), Maintenance, Pharmacy: [facility] [address] metroNIDAZOLE topical, 1 wayne, Topical, Daily AM, to whole face, # 1 bottle(s), 3 Refill(s), Maintenance, Pharmacy: [facility] [address] tretinoin topical, 1 wayne, Topical, Bedtime, # 30 gm, 5 Refill(s), Maintenance, Pharmacy: [facility] [address] triamcinolone topical, 1 wayne, Topical, 2xDay, PRN Itching, to itchy areas during flourouracil treatment, # 60 gm, 0 Refill(s), Acute, Pharmacy: [facility] [address] Return Visit Fam Med 15 Min Return Visit Fam Med 15 Min FOOTNOTES [1] Clinic Progress Note; TONI JOHN MD 07/09/2014 17:18 CDT Electronically Signed By: TONI JOHN MD On: 09/30/2014 04:49 PM Source: [facility] POWERCHART Document Id: [id number] LATHE OPERATOR documented in this encounter Miscellaneous Notes Miscellaneous - Toni John M.D. - 09/30/2014 4:47 PM CST Ambulatory Patient Summary [address] [id number] Visit Information Name: YAMEL MARCELO [facility] Number: [id number] Current Date: 09/30/2014 16:47:52 Physicians Attending Provider: TONI JOHN MD Primary Care Provider: FELIX SANTOS SLIP COVER MAKER YAMEL MARCELO has been given the [...] gram, Vaginal, once a day (at bedtime) fluorouracil topical (fluorouracil 5% topical cream) 1 wayne, Topical, once a day (at bedtime) 4 weeksto the chest (apply with gloves) New Routed to [address] [phone] ketoconazole topical (ketoconazole 2% topical shampoo) 1 wayne, Topical, 2 times a week New Routed to [address] [phone] magnesium citrate (magnesium citrate) 300 Milliliter, Oral, once metroNIDAZOLE topical (metroNIDAZOLE 0.75% topical gel) 1 wayne, Topical, once a day (in the morning) to whole face This is a CHANGE Routed to [address] [phone] [facility] Prescription ([facility] Prescription) amberen, once a day multivitamin (Vitamin B Complex oral tablet) 1 Tablet(s), Oral, once a day multivitamin (B-Complex 50) 1 Tablet(s), Oral, once a day omega-3 polyunsaturated fatty acids (Fish Oil 1000 mg oral capsule) 1 cap, Oral, once a day tretinoin topical (tretinoin 0.025% topical cream) 1 wayne, Topical, once a day (at bedtime) New Routed to [facility] [address] [place], [place] [phone] triamcinolone topical (triamcinolone 0.1% topical ointment) 1 wayne, Topical, two times a day as needed for Itching to itchy areas during flourouracil treatment New Routed to [facility] [address] [place], [place] [phone] verapamil (verapamil 180 mg/24 hours oral capsule, extended release) 1 cap, Oral, once a day for Reynaud's disease Stop Taking the Following Medications: ibuprofen (ibuprofen 600 mg oral tablet) ofloxacin otic (Floxin Otic 0.3% otic solution) spironolactone (spironolactone 25 mg oral tablet) Medication list as of 09-30-14 16:47 Attention: If you have any medications at [...] Electronically Signed By: TONI JOHN MD Signed On:30-SEP-2014 16:36:46 Your Allergies & Intolerances Substance Reaction Symptoms [...] Your Upcoming Appointments Date Time Location Provider 10/01/2014 08:00 [facility] Mammo FB MA Room 1 10/01/2014 08:30 [facility] FamilyPrac Felix Santos CNP 10/06/2014 16:15 FBCV SCROLL SHEAR OPERATOR Lydia LUNATatianaa 10/13/2014 09:15 [facility] Toni Crespo MD 10/29/2014 15:45 [facility] Toni Crespo MD 11/28/2014 08:30 FB[facility] Lab [facility] Lab Attention: Contact your local Clinic if further appointment detail needed. Your Goals/Additional instructions: Source: [facility] POWERCHART Document Id: [id number] LATHE OPERATOR Miscellaneous - Toni John M.D. - 09/30/2014 4:47 PM CST Ambulatory Discharge Medication List [address] [id number] Visit Information Name: YAMEL MARCELO [facility] Number: [id number] Visit Date: 09/30/2014 16:47:50 Attending Provider: TONI JOHN MD Primary Care Provider: FELIX SANTOS SLIP COVER MAKER YAMEL MARCELO has been given the [...] gram, Vaginal, once a day (at bedtime) fluorouracil topical (fluorouracil 5% topical cream) 1 wayne, Topical, once a day (at bedtime) 4 weeksto the chest (apply with gloves) New Routed to [address] [phone] ketoconazole topical (ketoconazole 2% topical shampoo) 1 wayne, Topical, 2 times a week New Routed to [address] [phone] magnesium citrate (magnesium citrate) 300 Milliliter, Oral, once metroNIDAZOLE topical (metroNIDAZOLE 0.75% topical gel) 1 wayne, Topical, once a day (in the morning) to whole face This is a CHANGE Routed to [address] [phone] [facility] Prescription ([facility] Prescription) amberen, once a day multivitamin (Vitamin B Complex oral tablet) 1 Tablet(s), Oral, once a day multivitamin (B-Complex 50) 1 Tablet(s), Oral, once a day omega-3 polyunsaturated fatty acids (Fish Oil 1000 mg oral capsule) 1 cap, Oral, once a day tretinoin topical (tretinoin 0.025% topical cream) 1 wayne, Topical, once a day (at bedtime) New Routed to [address] [phone] triamcinolone topical (triamcinolone 0.1% topical ointment) 1 wayne, Topical, two times a day as needed for Itching to itchy areas during flourouracil treatment New Routed to [address] [phone] verapamil (verapamil 180 mg/24 hours oral capsule, extended release) 1 cap, Oral, once a day for Reynaud's disease Stop Taking the Following Medications: ibuprofen (ibuprofen 600 mg oral tablet) ofloxacin otic (Floxin Otic 0.3% otic solution) spironolactone (spironolactone 25 mg oral tablet) Medication list as of 09-30-14 16:47 Attention: If you have any medications at [...] Electronically Signed By: TONI JOHN MD Signed On:30-SEP-2014 16:36:46 Additional Information: 1. Chest: Recheck 2 weeks after starting medication and at 4 weeks after. 2.Face: Start with every other night (tretinoin) for a couple weeks, then it not itchy or really red it is ok to try nightly. Source: [facility] POWERCHART Document Id: [id number] LATHE OPERATOR Miscellaneous - Ramila Paul L.PKarolN. - 09/30/2014 4:00 PM CST Adult Garbage Man Intake/History Adult Garbage Man Intake/History Entered On: 09/30/2014 16:03 COPY LATHE OPERATOR Performed On: 09/30/2014 16:00 COPY LATHE OPERATOR by RAMILA PAUL Intake Chief Complaint : no change with oily skin Temperature Core : 37.4 DegC(Converted to: 99.3 DegF) Peripheral Pulse Rate : 68 /min Respiratory Rate : 16 /min Systolic Blood Pressure : 98 mmHg Diastolic Blood Pressure : 64 mmHg NIBP Mean : 75 mmHg BP Location : Right upper extremity Height : 179 cm(Converted to: 5 ft 10 inch(es), 70 inch(es)) Actual Weight : 83 kg(Converted to: 183 lb 0 oz) Weight Source : Standing scale Dosing Weight Clinic : 83 kg Clinic BSA : 2.03 Body Mass Index : 25.9 kg/m2 RAMILA PAUL - 09/30/2014 16:00 COPY LATHE OPERATOR General Info Information Given By : Patient Languages : Nepali Is Patient Female and 13-50 no hysterectomy : No RAMILA PAUL - 09/30/2014 16:00 COPY LATHE OPERATOR Subjective Pain Symptoms : No RAMILA PAUL - 09/30/2014 16:00 COPY LATHE OPERATOR Dependent Habits Tobacco Use/Currently Using : No Exposure to Tobacco Smoke : Other: Never Smoking Status : Never smoker RAMILA PAUL - 09/30/2014 16:00 COPY LATHE OPERATOR Caffeine Use Grid Caffeine Use : Current Type : Soft drinks Frequency : Occasionally RAMILA PAUL - 09/30/2014 16:00 COPY LATHE OPERATOR Recreational Drug Use Grid Drug Use : None RAMILA PAUL - 09/30/2014 16:00 COPY LATHE OPERATOR ID Screen Travel Within Last 21 Days : No RAMILA PAUL - 09/30/2014 16:00 COPY LATHE OPERATOR Source: [facility] POWERCHART Document Id: [id number] COPY LATHE OPERATOR!36 LATHE OPERATOR documented in this encounter Plan of Treatment Not on filedocumented as of this encounter Visit Diagnoses Not on filedocumented in this encounter
--- OUTSIDE RECORDS SUMMARY | 2022-06-30 08:32 | XMS_ITS | Encounter Summary ---
:1960 Author Organization [facility] Address [address] [place] [address] Care Team Providers Name Role Phone Unavailable Primary Care Provider Unavailable Encounter Details Date Type Department Care Team Description 10/01/2014 Hospital Encounter HX [facility]ILY[facility] MyrRula donovan, SKIFF OPERATOR, C.N.P. [address] [place] [address] (Wo rk) Social History Tobacco [...] or relatives? How often do you attend episcopal or synagogue More than 4 time s per year 02/02/2021 services? Do you belong to any clubs or organizations No 02/02/2021 such as episcopal groups, unions, fraternal or athletic groups, or [...] place to sleep or slept in a residential (including now)? Sex Assigned at Date Recorded Not on file documented as of this encounter Last Filed Vital Signs Vital Sign Reading Time Taken Comments Blood Pressure 108/60 10/01/2014 8:36 AM VENEER DRIER Pulse 72 10/01/2014 8:36 AM VENEER DRIER Temperature - - Respiratory Rate 20 10/01/2014 8:36 AM VENEER DRIER Oxygen Saturation - - Inhaled Oxygen Concentration - - Weight 82 kg (180 lb 12.4 oz) 10/01/2014 8:36 AM VENEER DRIER Height 177.5 cm (5' 9.88) 10/01/2014 8:36 AM VENEER DRIER Body Mass Index 26.03 10/01/2014 8:36 AM VENEER DRIER documented in this encounter Medications at Time [...] (OMEGA 3-6-9 mouth daily. FATTY ACIDS ORAL) bqbhkwnxfdud-Zh-srtc-min Take 1 tablet by 0 01/14 erals tablet mouth daily. UNABLE TO FIND daily. Amberen 0 09/30/2013 ketoconazole Apply 1 application 0 09/30/2014 (for_NIZORAL) 2 % topically 2 (two) shampoo times a week. metroNIDAZOLE Apply 1 application 0 09/30/2014 (for_ROSADAN) 0.75 % gel topically every morning. documented as of this encounter H&P Notes Felix Santos, ASHIA, C.N.P. - 10/01/2014 8:25 AM CST [id number] CHIEF COMPLAINT/REASON FOR VISIT 1. Healthcare maintenance exam. 2. Hypercholesterolemia. 3. Follow up lung nodule. 4. Raynaud's disease. 5. Follow up thyroid nodule. HISTORY OF PRESENT ILLNESS 1. Amanda is here for physical exam. She had mammogram performed this morning. She had fasting labs last week. 2. Hypercholesterolemia. LDL came back elevated at 114. She is currently on atorvastatin 10 mg daily. We are going to increase that to 20 mg daily and plan to recheck fasting lipids again in 2 months. 3. She has history of lung nodules being followed by CT scan. She had CT on 09/24/2014 at [facility]. Radiologist notes no change in the bilateral apical nodular densities and surrounding areas of fibrosis. Again, this most likely represents scarring associated with the old granulomatous dis ease. However followup CT in 1 year is recommended. That will be scheduled for her. 4. Raynaud's disease. She has problems primarily in the winter and uses verapamil. She needs refill.It works well. 5. She has history of thyroid nodule and she will be due for repeat thyroid ultrasound for followup for stability. Orders are in for that for her to schedule. MEDICATIONS See depart summary from today. ALLERGIES None. SYSTEMS REVIEW Positive for that mentioned in the history of present illness and noted in the past medical history in the EMR. All other systems were reviewed and were negative. PAST MEDICAL/SURGICAL HISTORY PAST MEDICAL HISTORY: Acne rosacea. Raynaud's disease. Menorrhagia. Seborrheic dermatitis. Hypercholesterolemia. Lung nodule. Thyroid nodule. PAST SURGICAL HISTORY: Varicose vein stripping. Ovarian cystectomy. Colposcopy. Total laparoscopic hysterectomy. PREVENTATIVE: Up to date. SOCIAL HISTORY She does not smoke. FAMILY HISTORY Reviewed per EMR on 10/01. VITAL SIGNS See EMR. PHYSICAL EXAMINATION GENERAL: In general, the patient is a pleasant female appears her stated age. SKIN: Without lesion. [...] palpable mass, no hepatosplenomegaly. GENITALIA: Bartholin, urethra, Skenes, vagina without lesion. Bimanual examination reveals no massesor tenderness in the uterine or adnexal areas. SPINE: Normal range of motion. No CVA tenderness. JOINTS: Normal range of motion. EXTREMITIES: Warm, dry, no cyanosis or peripheral edema. MENTAL: Alert and oriented times three. NEUROLOGIC: Deep tendon reflexes are +2 and symmetrical. SKIN: Multiple seborrheic keratoses on chest. IMPRESSION/REPORT/PLAN 1. Healthcare maintenance exam, encouraged to continue working on healthy diet and regular exercise program. 2. Hypercholesterolemia. Increase Lipitor to 20 mg daily. Recheck fasting lipids and AST in 2 months. 3. Lung nodule. Follow up CT scan in 1 year. 4. Raynaud's disease. Refill on verapamil. 5. Thyroid nodules. She will be due for followup ultrasound in April. 6. Return for physical exam and mammogram in 1 year. Felix Santos CNP/rui Electronically Signed By: FELIX SANTOS CNP On: 10/01/2014 11:00 AM Source: [facility] MHSDOLBEYNONRADSYS Document Id: [id number] ER DRIER documented in this encounter Nursing Notes Felix Santos APRN, C.N.P. - 10/01/2014 8:45 AM CST Ambulatory Patient Education The following [...] contain saturated fat unless labeled otherwise. ?? 3398-7819 [employer], [address] [place] [address], [place] [address]. All rights reserved. This information is not intended as a substitute for professional medical care. Always follow your healthcare professional's instructions. This document has images extracted. Please consider using [employer] for all your patient education needs. Source: [employer] Document Id: [id number] ER DRIER Dori Zabala L.P.N. - 09/17/2014 12:[address] of chest PA completed and routed to Arely Coy for insurance approval. Order form filled out for CT of chest for right upper lobe nodule. Electronically Signed By: DORI ZABALA LPN On: 09/17/2014 12:04 PM Source: [employer] Document Id: [id number] ER DRIER documented in this encounter Miscellaneous Notes Miscellaneous - Dori Zabala L.P.N. - 10/01/2014 10:12 AM CST PHQ-9 PHQ-9 Entered On: 10/01/2014 10:12 VENEER DRIER Performed On: 10/01/2014 10:12 VENEER DRIER by DORI ZABALA LPN PHQ-9 Little interest [...] at all PHQ-9 Calculated Score : 0 DORI ZABALA LPN - 10/01/2014 10:12 VENEER DRIER Source: [employer] Document Id: [id number] VENEER DRIER!12 ER DRIER Miscellaneous - Felix Santos APRN, C.NAlfred. - 10/01/2014 8:45 AM CST Ambulatory Patient Summary [address] [id number] Visit Information Name: AMANDA MARCELO [facility] Number: [id number] Current Date: 10/01/2014 08:45:21 Physicians Attending Provider: FELIX SANTOS CNP Primary [...] a day for Reynaud's disease Routed to [facility] [address] [place], [place] [id number] Stop Taking the Following Medications: estradiol topical (Estrace Vaginal 0.1 mg/g vaginal cream) multivitamin (Vitamin B Complex oral tablet) Medication list as of 10-01-14 08:45 Attention: If you have any medications at [...] Electronically Signed By: FELIX SANTOS CNP Signed On:01-OCT-2014 08:44:59 Your Allergies & Intolerances Substance Reaction Symptoms [...] Your Upcoming Appointments Date Time Location Provider 10/06/2014 16:15 [facility] BONDING AGENT Raven Freeman MD 10/13/2014 09:15 [facility] Kellie Crespo MD 10/29/2014 15:45 FBKellie Castro MD 11/28/2014 08:30 [facility] Lab [facility] Lab [...] contain saturated fat unless labeled otherwise. ?? 2034-0524 [facility], [address] [place] [address]. All rights reserved. This information is not intended as a substitute for professional medical care. Always follow your healthcare professional's instructions. Your Goals/Additional instructions: This document has images extracted. Please consider using [employer] for all your patient education needs. Source: [facility] POWERCHART Document Id: [id number] ER DRIER Miscellaneous - Felix Santos APRN, C.N.P. - 10/01/2014 8:45 AM CST Ambulatory Discharge Medication List [address] [id number] Visit Information Name: FOZIAMARCELINANE RHONDA [facility] Number: [id number] Visit Date: 10/01/2014 08:45:19 Attending Provider: FELIX SANTOS CNP Primary Care Provider: FELIX SANTOS CNP FOZIA AMANDA HIGGINSN has been given the following list [...] a day for Reynaud's disease Routed to [address] [id number] Stop Taking the Following Medications: estradiol topical (Estrace Vaginal 0.1 mg/g vaginal cream) multivitamin (Vitamin B Complex oral tablet) Medication list as of 10-01-14 08:45 Attention: If you have any medications at [...] Electronically Signed By: FELIX SANTOS CNP Signed On:01-OCT-2014 08:44:59 Additional Information: Source: [facility] POWERCHART Document Id: [id number] ER DRIER Miscellaneous - SarahtiaDori L.P.N. - 10/01/2014 8:36 AM CST Adult Embossing Calender Operator Intake/History Adult Embossing Calender Operator Intake/History Entered On: 10/01/2014 8:38 VENEER DRIER Performed On: 10/01/2014 8:36 VENEER DRIER by DORI ZABALA LPN Intake Chief Complaint : Physical-No concerns. Had mammogram. Had labs done on Monday. Temperature Core : 37.0 DegC(Converted to: 98.6 DegF) Peripheral Pulse Rate : 72 /min Respiratory Rate : 20 /min Heart Rhythm : Regular Systolic Blood Pressure : 108 mmHg Diastolic Blood Pressure : 60 mmHg NIBP Mean : 76 mmHg BP Location : Right upper extremity Blood Pressure Cuff Size : Regular Height : 177.5 cm(Converted to: 5 ft 10 inch(es), 70 inch(es)) Actual Weight : 82 kg(Converted to: 180 lb 12 oz) Weight Source : Standing scale Dosing Weight Clinic : 82 kg Clinic BSA : 2.01 Body Mass Index : 26.03 kg/m2 DORI ZABALA AMI KAUR - 10/01/2014 8:36 VENEER DRIER General Info Information Given By : Patient Preferred Communication Mode : Verbal Languages : Nepalese Is Patient Female and 13-50 no hysterectomy : No DORI ZABALA AMI KAUR - 10/01/2014 8:36 VENEER DRIER Subjective Pain Symptoms : No VJCHANDANDORIPAUL MUELLER LPN - 10/01/2014 8:36 VENEER DRIER Dependent Habits Tobacco Use/Currently Using : No Exposure to Tobacco Smoke : Other: Never Smoking Status : Never smoker DORI ZABALA AMI KAUR - 10/01/2014 8:36 VENEER DRIER Caffeine Use Grid Caffeine Use : Current Type : Soft drinks Frequency : Occasionally DORI ZABALA LPN - 10/01/2014 8:36 VENEER DRIER Recreational Drug Use Grid Drug Use : None DORI ZABALA LPN - 10/01/2014 8:36 VENEER DRIER ID Screen Travel Within Last 21 Days : No VJCHANDANDORIPAUL MUELLER LPN - 10/01/2014 8:36 VENEER DRIER Source: [employer] Document Id: [id number] VENEER DRIER!39 ER DRIER Miscellaneous - Dori Zabala L.PKarolNKarol - 10/01/2014 8:34 AM CST Health Assessment Health Assessment Entered On: 10/01/2014 8:36 VENEER DRIER Performed On: 10/01/2014 8:34 VENEER DRIER by DORI ZABALA LPN Health Assessment Complete Health Assessment Complete or Modified : Annual Health Assessment Annual Health Assessment Completed : Yes DORI ZABALA LPN - 10/01/2014 8:34 VENEER DRIER Nutrition Nutrition Risk Factors by History Adult : None DORI ZABALA LPN - 10/01/2014 8:34 VENEER DRIER Functional Current Daily Living Assistance : None DORI ZABALA LPN - 10/01/2014 8:34 VENEER DRIER Dependent Habits Tobacco Use/Currently Using : No Exposure to Tobacco Smoke : Other: Never Smoking Status : Never smoker DORI ZABALA LPN - 10/01/2014 8:34 VENEER DRIER Caffeine Use Grid Caffeine Use : Current Type : Soft drinks Frequency : Occasionally DORI ZABALA LPN - 10/01/2014 8:34 VENEER DRIER Recreational Drug Use Grid Drug Use : None DORI ZABALA LPN - 10/01/2014 8:34 VENEER DRIER Psychosocial Domestic Abuse Concerns : None Taoism Preference : Unknown EARNESTINEASHLEYTia DORIPAUL MUELLER LPN - 10/01/2014 8:34 VENEER DRIER Advance Directive Advanced Directives : No Advance Directive Additional Information : Yes VJ DORIPAUL MUELLER LPN - 10/01/2014 8:34 VENEER DRIER Educ Needs Learning Style Preference Adult Grid Patient : Printed materials, Verbal explanation Family : Verbal explanation, Printed materials VJDORI AMI KAUR - 10/01/2014 8:34 VENEER DRIER Source: [facility] POWERCHART Document Id: [id number] VENEER DRIER!30 ER DRIER documented in this encounter Plan of Treatment Not on filedocumented as of this encounter Visit Diagnoses Not on filedocumented in this encounter
--- OUTSIDE RECORDS SUMMARY | 2022-06-30 08:32 | XMS_ITS | Encounter Summary ---
:1960 Author Organization [facility] Address [address] [place] [address] Care Team Providers Name Role Phone Unavailable Primary Care Provider Unavailable Encounter Details Date Type Department Care Team Description 10/01/2014 Hospital Encounter HX [facility] Allyson Trinh, METER INSTALLER, C.N.P. [address] [place], [place] [address] (Wo rk) Social History [...] How often do you attend baptist or voodoo More than 4 time s per year [...] - - Height 179 cm (5' 10.47) 10/01/2014 7:58 AM PORTER SAMPLE CASE Body Mass Index - - documented in [...] (OMEGA 3-6-9 mouth daily. FATTY ACIDS ORAL) uwhocxncgkfd-Ww-fgsb-min Take 1 tablet by 0 01/14 erals [...] Diagnosis Comme nts BI BREAST SCREENING Routine 10/01/2014 8:00 AM Re sults for this BILATERAL PORTER SAMPLE CASE procedure are i n the results section. documented in this encounter Results BI Breast Screening Bilateral (10/01/2014 8:00 AM PORTER SAMPLE CASE) Anatomical Region Laterality Modality Breast Bilateral Mammography Specimen (Source) Anatomical Collection Method Collection Time Re ceived Time Location / / Volume Laterality 10/01/2014 8:00 AM PORTER SAMPLE CASE Impressions 10/01/2014 9:57 AM PORTER SAMPLE CASE Benign findings, BIRADS 2. Yearly mammograms are recommended. MAMMOGRAPHY - GENERAL OBSERVATIONS: The reported false negative rate for mammography is 15-20%. It cannot be used, therefore, to replace the regular physical examination. A norm al or noncontributory mammogram report also should not deter t he aggressive further workup of any suspected palpable masses. Narrative 10/01/2014 9:57 AM PORTER SAMPLE CASE HISTORY: Screening mammogram. Technique: Bilateral digital mammograms were obtained in the CC and MLO projections. COMPARISON: 09/30/2013 and prior. FINDINGS: There has been no significant interval change (mild diffuse bilateral but left more than right benig n microcalcifications are once again observed). The breast parench ymal pattern remains heterogeneously dense which decreases ma mmographic sensitivity while increasing the importance of physical ex ams. There is no definite evidence of a new dominant spiculated ma ss, concerning clustered pleomorphic microcalcifications, or arch itectural distortion. No new skin thickening or nipple retraction / i nversion. No other definite concerning mammogram findings. CAD was utilized. Procedure Note Jerman Calvillo M.D. / Provider, Baldemar cordoba M.D. - 02/25/2017 HISTORY: Screening mammogram. Technique: Bilateral digital mammograms were obtained in the CC and MLO projections. COMPARISON: 09/30/2013 and prior. FINDINGS: There has been no significant interval change (mild diffuse bilateral but left more than right benig n microcalcifications are once again observed). The breast parench ymal pattern remains heterogeneously dense which decreases ma mmographic sensitivity while increasing the importance of physical ex ams. There is no definite evidence of a new dominant spiculated ma ss, concerning clustered pleomorphic microcalcifications, or arch itectural distortion. No new skin thickening or nipple retraction / i nversion. No other definite concerning mammogram findings. CAD was utilized. IMPRESSION: Benign findings, BIRADS 2. Yearly mammograms are recommended. MAMMOGRAPHY - GENERAL OBSERVATIONS: The reported false negative rate for mammography is 15-20%. It cannot be used, therefore, to replace the regular physical examination. A norm al or noncontributory mammogram report also should not deter t he aggressive further workup of any suspected palpable masses. Historical Provider IMG BI PROCEDURES documented in this encounter Visit Diagnoses Not on filedocumented in this encounter
--- OUTSIDE RECORDS SUMMARY | 2022-06-30 08:32 | XMS_ITS | Encounter Summary ---
:1960 Author Organization [facility] Address [address] [place] [address] Care Team Providers Name Role Phone Unavailable Primary Care Provider Unavailable Encounter Details Date Type Department Care Team Description 09/09/2014 Hospital Encounter [facility]X [facility] Rell Fields M.D. [address], [place] [phone] (Wo rk) Social History [...] How often do you attend evangelical or tenriism More than 4 time s [...] Sign Reading Time Taken Comments Blood Pressure 98/60 09/09/2014 4:09 PM ASPHALT RAKER Pulse 74 09/09/2014 4:09 PM ASPHALT RAKER Temperature - - Respiratory Rate 16 09/09/2014 4:09 PM ASPHALT RAKER Oxygen Saturation - - Inhaled Oxygen Concentration - - Weight 81.5 kg (179 lb 10.8 oz) 09/09/2014 4:09 PM ASPHALT RAKER Height 179 cm (5' 10.47) 09/09/2014 4:09 PM ASPHALT RAKER Body Mass Index 25.44 09/09/2014 4:09 PM ASPHALT RAKER documented in this encounter Medications at Time [...] (OMEGA 3-6-9 FATTY mouth daily. ACIDS ORAL) sklxqqkbjkit-Uf-krac-mine Take 1 tablet by mouth 0 01/14/2010 rals tablet daily. UNABLE TO FIND daily. Raeganen 0 09/30/2013 documented as of this encounter Progress Notes Raven Barber M.D. - 09/09/2014 4:04 PM CST [id number] CHIEF COMPLAINT/REASON FOR VISIT Postop check. HISTORY OF PRESENT ILLNESS Amanda is a 54-year-old, nulliparous female, who is 6 weeks postop, status post total laparoscopic hysterectomy, bilateral salpingectomy, and cystoscopy, who presents for postop check today. Amanda has had some occasional vaginal bleeding in the postoperative period and she continues to have brownish colored thin discharge requiring her to wear a pad each day. This does not seem to be decreasing significantly. Otherwise, she is voiding, ambulating, and having normal bowel movements. She is tolerating a regular diet without difficulty. 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 She does occasionally feel a twinge at her infraumbilical incision, but this is not persistent or frequent. MEDICATIONS See EMR. ALLERGIES See EMR. SYSTEMS [...] GENERAL: Well-nourished female, in no acute distress. HEAD: Normocephalic, atraumatic. EENT: Vision and hearing grossly intact. CARDIOVASCULAR: Regular rate and rhythm. No murmurs, rubs, or gallops. CHEST: Clear to auscultation bilaterally. No wheezes or rales. ABDOMEN: Soft, nondistended, and nontender. Normoactive bowel sounds. Infraumbilical and right lowerquadrant port sites are well healed and without surrounding erythema, increased warmth, or purulent drainage. PELVIC EXAMINATION: External genitalia without lesions or abnormalities. Normal pubic hair distribution. Urethral meatus normal location in appearance without masses. Vaginal mucosa pink and moist witha moderate amount of thin brownish discharge noted in the vagina and at the vaginal cuff apex. When examined with a speculum, there is a very minute mucosal separation just to the left of the midline with a very tiny amount of bright red blood present at the anterior aspect. I cannot see into the corners. The vaginal cuff apex appears to be healing well and without signs of separation or dehiscence. The vaginal cuff apex was probed and noted to be intact. LOWER EXTREMITIES: Nontender. No edema. IMPRESSION/REPORT/PLAN A 54-year-old, nulliparous female, who is 6 weeks postop, status post total laparoscopic hysterectomy, bilateral salpingectomy, and cystoscopy, who presents for postop check today and continues to havea moderate amount of brownish- colored discharge. 1. Postoperative progress: Other than the vaginal discharge, the patient has made excellent postoperative progress and has nearly made a full recovery. 2. Brownish discharge: There is a very small area at the vaginal cuff apex, where it may be a very small amount of bleeding. I assume that over the next several weeks this will resolve and heal spontaneously. The patient has used Estrace cream and has used it for about 3 weeks and has stopped using it. The vaginal mucosa appears healthy and so I think she can discontinue use of the Estrace cream at this time. 3. Followup: Two weeks. Raven Barber M.D./rui Electronically Signed By: RAVEN BARBER MD On: 09/13/2014 05:14 PM Source: [facility] MHSDOLBEYNONRADSYS Document Id: [id number] ALT RAKER documented in this encounter Miscellaneous Notes Telephone Encounter - Conversion, Historical Provider Ser - 09/16/2014 11:41 AM CST *Phone Message Document Contains Addenda Addendum by WHITNEY ZABALA LPN on 16 September 2014 14:23:53 ASPHALT RAKER Noted. Addendum by FELIX SANTOS CNP on 16 September 2014 14:12:43 ASPHALT RAKER From: FELIX SANTOS CNP To: NORMAN Santos Nurse; Sent: 09/16/2014 14:12:43 ASPHALT RAKER Subject: RE: *Phone Message Orders for lipids are in. Addendum by WHITNEY ZABALA LPN on 16 September 2014 14:01:04 ASPHALT RAKER From: WHITNEY ZABALA LPN (FB Astrid Nurse) To: FELIX SANTOS CNP; Sent: 09/16/2014 14:01:04 ASPHALT RAKER Subject: FW: *Phone Message Addendum by WHITNEY ZABALA LPN on 16 September 2014 14:00:57 ASPHALT RAKER Would like orders in for lipids and also needs to schedule a [address] scan for nodule in lung. Informed her to call back in a day to schedule appointment for lab and that [facility] will contact her with appointment for CT Scan. Addendum by SHANDRA CORONA on 16 September 2014 12:08:39 ASPHALT RAKER patient returned call - try her at work at [phone] or her cell at [phone] Addendum by WHITNEY ZABALA LPN on 16 September 2014 11:52:42 ASPHALT RAKER Attempted to contact Amanda. Message left to return my call. From: SHANDRA CORONA ( Myr Nurse) To: Astrid Nurse; Sent: 09/16/2014 11:41:40 ASPHALT RAKER Subject: *Phone Message Caller is: ( x ) Patient ( ) Mother ( ) Father ( ) Spouse ( ) Daughter ( ) Son ( ) Pharmacy ( ) Other: Physician: Patient MRN #: Reason for Call: Message: s: patient called to talk to nurse b: has a physical scheduled for 10/01/14 and wants to have her labs done before that appointment a: wants call back r: [phone] Advice/Action: Source used: ( ) Verbalizes understanding [...] back cell phone number ( ) Source: [facility] [employer] Document Id: [id number] Miscellaneous - Raven Barber M.D. - 09/09/2014 7:21 PM CST Ambulatory Patient Summary [address] [id number] Visit Information Name: AMANDA MARCELO [facility] Number: [id number] Visit Date: 09/09/2014 19:21:46 Attending Provider: RAVEN BARBER MD Primary Care Provider: FELIX SANTOS MACHINE CAPTAIN AMANDA MARCELO has been given the following [...] gram, Vaginal, once a day (at bedtime) ibuprofen (ibuprofen 600 mg oral tablet) 1 [...] the Following Medications: Medication list as of 09-09-14 19:21 Attention: If you have any medications at [...] Electronically Signed By: RAVEN BARBER MD Signed On:09-SEP-2014 19:21:36 Additional Information: Source: [facility] POWERCHART Document Id: [id number] ALT RAKER Miscellaneous - Raven Barber M.D. - 09/09/2014 7:21 PM CST Ambulatory Discharge Medication List [address] [id number] Visit Information Name: AMANDA MARCELO [facility] Number: [id number] Visit Date: 09/09/2014 19:21:44 Attending Provider: RAVEN BARBER MD Primary Care Provider: FELIX SANTOS CNP AMANDA MARCELO RHONDA has been given the following list of [...] gram, Vaginal, once a day (at bedtime) ibuprofen (ibuprofen 600 mg oral tablet) 1 [...] the Following Medications: Medication list as of 09-09-14 19:21 Attention: If you have any medications at [...] Electronically Signed By: RAVEN BARBER MD Signed On:09-SEP-2014 19:21:36 Additional Information: Source: [facility] POWERCHART Document Id: [id number] ALT RAKER Miscellaneous - Forrest Fishman LKarolP.N. - 09/09/2014 4:09 PM CST Adult Websphere Consultant Intake/History Adult Websphere Consultant Intake/History Entered On: 09/09/2014 16:11 ASPHALT RAKER Performed On: 09/09/2014 16:09 ASPHALT RAKER by FORREST FISHMAN Intake Chief Complaint : post op Peripheral Pulse Rate : 74 /min Respiratory Rate : 16 /min Heart Rhythm : Regular Systolic Blood Pressure : 98 mmHg Diastolic Blood Pressure : 60 mmHg NIBP Mean : 73 mmHg BP Location : Left upper extremity Blood Pressure Cuff Size : Regular Height : 179 cm(Converted to: 5 ft 10 inch(es), 70 inch(es)) Actual Weight : 81.5 kg(Converted to: 179 lb 11 oz) Weight Source : Standing scale Dosing Weight Clinic : 81.5 kg Clinic BSA : 2.01 Body Mass Index : 25.44 kg/m2 FORREST FISHMAN - 09/09/2014 16:09 ASPHALT RAKER General Info Languages : Mongolian Is Patient Female and 13-50 no hysterectomy : No FORREST FISHMAN - 09/09/2014 16:09 ASPHALT RAKER Subjective Pain Symptoms : No FORREST FISHMAN 09/09/2014 16:09 ASPHALT RAKER Dependent Habits Tobacco Use/Currently Using : No Exposure to Tobacco Smoke : Other: Never Smoking Status : Never smoker FORREST FISHMAN 09/09/2014 16:09 ASPHALT RAKER Caffeine Use Grid Caffeine Use : Current Type : Soft drinks Frequency : Occasionally FORREST FISHMAN 09/09/2014 16:09 ASPHALT RAKER Recreational Drug Use Grid Drug Use : None FORREST FISHMAN 09/09/2014 16:09 ASPHALT RAKER ID Screen Travel Within Last 21 Days : No FORREST FISHMAN 09/09/2014 16:09 ASPHALT RAKER [facility] Document Id: [id number] ASPHALT RAKER!36 ALT RAKER documented in this encounter Plan of Treatment Not on filedocumented as of this encounter Visit Diagnoses Not on filedocumented in this encounter
--- OUTSIDE RECORDS SUMMARY | 2022-06-30 08:32 | XMS_ITS | Encounter Summary ---
:1960 Author Organization [facility] Address [address] [place] [address] Care Team Providers Name Role Phone Unavailable Primary Care Provider Unavailable Encounter Details Date Type Department Care Team Description 08/07/2014 Hospital Encounter HX [facility] Allyson Resendiz, Alejandra DE LA GARZA, C.N.P. [address] [place], [place] [phone] (Wo rk) Social History [...] or relatives? How often do you attend anabaptist or congregational More than 4 time s per year 02/02/2021 services? Do you belong to any clubs or organizations No 02/02/2021 such as anabaptist groups, unions, fraternal or athletic groups, or [...] - - Height 179 cm (5' 10.47) 08/07/2014 1:55 PM CDT Body Mass Index - - documented in [...] (OMEGA 3-6-9 FATTY mouth daily. ACIDS ORAL) uadloxwyvags-Op-zbfj-mine Take 1 tablet by mouth 0 01/14/2010 rals tablet daily. UNABLE TO FIND daily. Amberen 0 09/30/2013 documented as of this encounter Miscellaneous Notes Miscellaneous - Toni John M.D. - 08/08/2014 9:55 AM CDT Spironolactone labs From: TONI JOHN MD To: YAMEL MARCELO Sent: 08/08/2014 09:55:01 CDT Subject: Spironolactone labs Labs february start meds Results: Date Result Name Ind Value Ref Range 08/07/2014 14:00 Sodium Lvl 144 mmol/L (135 - 145) 08/07/2014 14:00 Potassium Lvl 4.6 mmol/L (3.5 - 4.8) 08/07/2014 14:00 Chloride 102 mmol/L (100 - 108) 08/07/2014 14:00 CO2 (H) 31 mmol/L (22 - 30) 08/07/2014 14:00 Glucose Lvl 106 08/07/2014 14:00 Creatinine 0.8 mg/dL (0.7 - 1.2) 08/07/2014 14:00 EGFR (MDRD) >60 mL/min 08/07/2014 14:00 EGFR (MDRD) >60 mL/min 08/07/2014 14:00 BUN 19 mg/dL (6 - 20) 08/07/2014 14:00 Calcium Lvl 9.6 mg/dL (8.5 - 10.5) Source: [facility] POWERCHART Document Id: [id number] Electronically signed by Conversion, [facility] Whiskey Regauger [id number] at 03/14/2017 3:01 AM CDT documented in this encounter Plan of Treatment Not on filedocumented as of this encounter Procedures Procedure Name Priority Date/Time Associated Diagnosis Comme nts BASIC METABOLIC Routine 08/07/2014 2:00 PM Result s for this PANEL, S/P CDT procedure are i n the results section. documented in this encounter Results (ABNORMAL) BMP (Basic Metabolic Panel) (08/07/2014 2:00 PM CDT) P athologist Signature BUN (Blood Urea 19 6 - 20 POWERCHART Nitrogen), S MGDL Creatinine 0.8 0.7 - 1.2 POWERCHART MGDL Glucose 106 POWERCHART Potassium, S 4.6 3.5 - 4.8 POWERCHART MMOLL Sodium, S 144 135 - 145 POWERCHART MMOLL Chloride, S 102 100 - 108 POWERCHART MMOLL CO2 Total 31 (H) 22 - 30 POWERCHART MMOLL Calcium, Total, 9.6 8.5 - 10.5 POWERCHART S MGDL HXeGFR (MDRD) >60 MLMIN POWERCHART eGFR >60 MLMIN POWERCHART Black/ Specimen (Source) Anatomical Collection Method Collection Time Re ceived Time Location / / Volume Laterality Blood 08/07/2014 2:00 PM CDT Toni John M.D. LAB BLOOD ADD-ON Performing Organization Address City/State/ZIP Code Phon e Number POWERCHART documented in this encounter Visit Diagnoses Not on filedocumented in this encounter
--- OUTSIDE RECORDS SUMMARY | 2022-06-30 08:32 | XMS_ITS | Encounter Summary ---
:1960 Author Organization [facility] Address [address] [place] [address] Care Team Providers Name Role Phone Unavailable Primary Care Provider Unavailable Encounter Details Date Type Department Care Team Description 09/29/2014 Hospital Encounter HX [facility] Felix Santos, Alejandra DE LA GARZA, C.N.P. [address] [place], [place] [phone] (Wo rk) Social History [...] or relatives? How often do you attend mormon or pentecostal More than 4 time s per year 02/02/2021 services? Do you belong to any clubs or organizations No 02/02/2021 such as mormon groups, unions, fraternal or athletic groups, or [...] place to sleep or slept in a chcf (including now)? Sex Assigned at Date Recorded Not on file documented as of this encounter Last Filed Vital Signs Vital Sign Reading Time Taken Comments Blood Pressure - - Pulse - - Temperature - - Respiratory Rate - - Oxygen Saturation - - Inhaled Oxygen Concentration - - Weight - - Height 179 cm (5' 10.47) 09/29/2014 8:09 AM ASSISTANT PROFESSOR IN FAMILY STUDIES Body Mass Index - - documented in [...] (OMEGA 3-6-9 FATTY mouth daily. ACIDS ORAL) yvlybqwhllnf-Rb-zrht-mine Take 1 tablet by mouth 0 01/14/2010 rals tablet daily. UNABLE TO FIND daily. Amberen 0 09/30/2013 documented as of this encounter Miscellaneous Notes Miscellaneous - Felix Santos APRN, C.N.P. - 09/29/2014 12:16 PM ASSISTANT PROFESSOR IN FAMILY STUDIES From: FELIX SANTOS DRY SAND MOLDER To: YAMEL MARCELO Sent: 09/29/2014 12:16:30 ASSISTANT PROFESSOR IN FAMILY STUDIES CHRISTIANO Patel is elevated. Increase attorvastatin to 20mg daily and recheck fastin lipids in 2 months. Results: Date Result Name Ind Value Ref Range 09/29/2014 08:12 AST 24 unit/L (8 - 43) 09/29/2014 08:12 Cholesterol 194 mg/dL (0 - 200) 09/29/2014 08:12 Trig 72 mg/dL (0 - 150) 09/29/2014 08:12 HDL (H) 66.0 mg/dL (40.0 - 60.0) 09/29/2014 08:12 LDL Calculated (H) 114 mg/dL (0 - 100) 09/29/2014 08:12 Chol/HDL Ratio 3 Source: [facility] POWERCHART Document Id: [id number] Electronically signed by Conversion, [facility] Restaurant Crew [id number] at 03/14/2017 9:42 PM CDT Miscellaneous - Felix Santos APRN, C.N.P. - 09/29/2014 12:15 PM ASSISTANT PROFESSOR IN FAMILY STUDIES From: FELIX SANTOS CNP Sent: 09/29/2014 12:15:36 ASSISTANT PROFESSOR IN FAMILY STUDIES Phone call with lipid results. LDL elevated. Increase atorvastatin to 20mg daily. Receck fasting lipids and ast in 2 months. Source: [facility] POWERCHART Document Id: [id number] Electronically signed by Conversion, [facility] Restaurant Crew [id number] at 03/14/2017 9:42 PM CDT documented in this encounter Plan of Treatment Not on filedocumented as of this encounter Procedures Procedure Name Priority Date/Time Associated Comments Diagnosis LIPID PANEL, S Routine 09/29/2014 8:12 Results fo r this AM ASSISTANT PROFESSOR IN FAMILY STUDIES procedure are i n the results section. ASPARTATE Routine 09/29/2014 8:12 Results for this AMINOTRANSFERASE (AST), AM ASSISTANT PROFESSOR IN FAMILY STUDIES proc edure are in S/P the results section. documented in this encounter Results AST (Aspartate Aminotransferase) (09/29/2014 8:12 AM ASSISTANT PROFESSOR IN FAMILY STUDIES) [facility] gist Method Time Signature Aspartate 24 8 - 43 POWERCHART Aminotransferase UNITL (AST), S Specimen (Source) Anatomical Collection Method Collection Time Re ceived Time Location / / Volume Laterality Blood 09/29/2014 8:12 AM ASSISTANT PROFESSOR IN FAMILY STUDIES Felix Santos APRN, C.N.P. LAB BLOOD ADD-ON Performing Organization Address City/State/ZIP Code Phon e Number POWERCHART (ABNORMAL) Lipid Panel (09/29/2014 8:12 AM ASSISTANT PROFESSOR IN FAMILY STUDIES) [facility] gist Method Time Signature Cholesterol, 194 0 - 200 POWERCHART Total MGDL HX HDL 66.0 (H) 40.0 - POWERCHART 60.0 MGDL Triglycerides 72 0 - 150 POWERCHART MGDL Calculated LDL 114 (H) 0 - 100 POWERCHART MGDL Total 3 POWERCHART Cholesterol/HDL Ratio Specimen (Source) Anatomical Collection Method Collection Time Re ceived Time Location / / Volume Laterality Blood 09/29/2014 8:12 AM ASSISTANT PROFESSOR IN FAMILY STUDIES Felix Santos APRN, C.N.P. LAB BLOOD ADD-ON Performing Organization Address City/State/ZIP Code Phon e Number POWERCHART documented in this encounter Visit Diagnoses Not on filedocumented in this encounter
--- OUTSIDE RECORDS SUMMARY | 2022-06-30 08:32 | XMS_ITS | Encounter Summary ---
:1960 Author Organization [facility] Address [address] [place] [address] Care Team Providers Name Role Phone Unavailable Primary Care Provider Unavailable Encounter Details Date Type Department Care Team Description 10/13/2014 Hospital Encounter HX [facility] FAMILY[facility] Shana John M.D. [address] [facility], [address] [place], [place] [address] (Wo rk) Social History [...] or relatives? How often do you attend sabianism or gnosticism More than 4 time s per year 02/02/2021 services? Do you belong to any clubs or organizations No 02/02/2021 such as sabianism groups, unions, fraternal or athletic groups, or [...] Sign Reading Time Taken Comments Blood Pressure 106/52 10/13/2014 9:21 AM TRANSFORMER MAKER Pulse 72 10/13/2014 9:21 AM TRANSFORMER MAKER Temperature - - Respiratory Rate 16 10/13/2014 9:21 AM TRANSFORMER MAKER Oxygen Saturation - - Inhaled Oxygen Concentration - - Weight - - Height 178 cm (5' 10.08) 10/13/2014 9:21 AM TRANSFORMER MAKER Body Mass Index - - documented in [...] (OMEGA 3-6-9 mouth daily. FATTY ACIDS ORAL) llempqosleum-Gu-hjwt-min Take 1 tablet by 0 01/14 erals tablet mouth daily. UNABLE TO FIND daily. Amberen 0 09/30/2013 ketoconazole Apply 1 application 0 09/30/2014 (for_NIZORAL) 2 % topically 2 (two) shampoo times a week. metroNIDAZOLE Apply 1 application 0 09/30/2014 (for_ROSADAN) 0.75 % gel topically every morning. documented as of this encounter Progress Notes Tnoi John M.D. - 10/13/2014 9:24 AM CST Clinic Full Note CHIEF COMPLAINT/REASON FOR VISIT follow up HISTORY OF PRESENT ILLNESS She started the Carac treatment on October 01. has had a nice, erythematous reaction on the chest.It is not as strong as when she treated her forehead. has used the Tcm ointment a few times- necklaces bother the area on chest being treated and some shirts. Discomfort a 1/10 Her forehead is still oily- we did add the 0.025% tretinoin last time (2 weeks ago). So needs more time to work. MEDICATIONS atorvastatin 20 mg oral tablet, 20 mg, 1 tab(s), PO, Bedtime, 3 refills B-Complex 50, 1 tab(s), PO, Daily Calcium 600+D, 1 tab(s), PO, 3xDay Fish Oil 1000 mg oral capsule, 1,000 mg, 1 cap(s), PO, Daily fluorouracil 5% topical cream, 1 wayne, 4 weeks to the chest (apply with gloves), Topical, Bedtime, 0refills ketoconazole 2% topical shampoo, 1 wayne, Topical, 2xWeek, 3 refills magnesium citrate, 300 mL, PO, Once metroNIDAZOLE 0.75% topical gel, 1 wayne, to whole face, Topical, Daily AM, 3 refills Misc Prescription, amberen, Daily tretinoin 0.025% topical cream, 1 wayne, Topical, Bedtime, 5 refills triamcinolone 0.1% topical ointment, 1 wayne, to itchy areas during flourouracil treatment, Topical, 2xDay, PRN, 0 refills verapamil 180 mg/24 hours oral capsule, [...] must include the following: Cholesterol, serum, total (88045) Lipoprotein, direct measurement, high density cholesterol (HDL cholesterol) (31660) Triglycerides (05516). (01/15/2010), Varicose vein stripping (03/30/2006), Ovarian cystectomy (03/30/1987). SOCIAL HISTORY No Data Available FAMILY HISTORY Mother ( at 69 year(s)):Positive: Brain tumor; Hyperlipidemia Father:Positive: Skin cancer Sister: Negative: Brother: Negative: Sister: Negative: Brother: Negative: SYSTEMS REVIEW otherwise negative VITAL SIGNS T: 37.0 ??C (Core) RR: 16 BP: 106 / 52 HT: 178 cm PHYSICAL EXAMINATION General: No acute distress Skin: Chest- erythematous patches- see Pictures taken of this skin lesion and will be uploaded to [facility] IMPRESSION/REPORT/PLAN Acne Rosacea continue meds-= give tretinoin a couple months to work Sun Damaged Skin 1. For now, use something unscented and hypoallergenic for a soap such as Dove. Continue another 2 weeks and recheck then. Electronically Signed By: TONI JOHN MD On: 10/13/2014 09:38 AM Source: [facility] POWERCHART Document Id: [id number] SFORMER MAKER documented in this encounter Miscellaneous Notes Miscellaneous - Toni John M.D. - 10/13/2014 9:37 AM CST Ambulatory Patient Summary [address] [id number] Visit Information Name: YAMEL MARCELO [facility] Number: [id number] Current Date: 10/13/2014 09:37:58 Physicians Attending Provider: TONI JOHN MD Primary Care Provider: FELIX SANTOS BOTTOM SANDER FOZIA YAMEL ELLIS has been given the [...] the Following Medications: Medication list as of 10-13-14 09:37 Attention: If you have any medications at [...] Electronically Signed By: TONI JOHN MD Signed On:13-OCT-2014 09:29:38 Your Allergies & Intolerances Substance Reaction Symptoms [...] Your Upcoming Appointments Date Time Location Provider 10/20/2014 16:00 [facility] GLASS MAKER Raven Freeman MD 10/29/2014 15:45 [facility] FamilyPrac Toni John MD 11/28/2014 08:30 [facility] Lab Attention: Contact your local Clinic if further appointment detail needed. Your Goals/Additional instructions: Source: [facility] POWERCHART Document Id: [id number] SFORMER MAKER Miscellaneous - Toni John M.D. - 10/13/2014 9:37 AM CST Ambulatory Discharge Medication List [address] [id number] Visit Information Name: YAMEL MARCELO [facility] Number: [id number] Visit Date: 10/13/2014 09:37:57 Attending Provider: TONI JOHN MD Primary Care Provider: FELIX SANTOS BOTTOM SANDER MARCELINA MARCELOOLIVA HIGGINSN has been given the [...] the Following Medications: Medication list as of 10-13-14 09:37 Attention: If you have any medications at [...] Electronically Signed By: TONI JOHN MD Signed On:13-OCT-2014 09:29:38 Additional Information: 1. For now, use something unscented and hypoallergenic for a soap such as Dove. Continue another 2 weeks and recheck then. Source: [facility] POWERCHART Document Id: [id number] SFORMER MAKER Miscellaneous - Ramila Paul, LKarolP.N. - 10/13/2014 9:21 AM CST Adult Line Decorator Intake/History Adult Line Decorator Intake/History Entered On: 10/13/2014 9:24 TRANSFORMER MAKER Performed On: 10/13/2014 9:21 TRANSFORMER MAKER by RAMILA PAUL Intake Chief Complaint : follow up Temperature Core : 37.0 DegC(Converted to: 98.6 DegF) Peripheral Pulse Rate : 72 /min Respiratory Rate : 16 /min Systolic Blood Pressure : 106 mmHg Diastolic Blood Pressure : 52 mmHg NIBP Mean : 70 mmHg BP Location : Left upper extremity Blood Pressure Cuff Size : Regular Height : 178 cm(Converted to: 5 ft 10 inch(es), 70 inch(es)) Weight Source : Other: refused RAMILA PAUL - 10/13/2014 9:21 TRANSFORMER MAKER General Info Information Given By : Patient Languages : Belarusian Is Patient Female and 13-50 no hysterectomy : No RAMILA PUAL - 10/13/2014 9:21 TRANSFORMER MAKER Subjective Pain Symptoms : No RAMILA PAUL - 10/13/2014 9:21 TRANSFORMER MAKER Dependent Habits Tobacco Use/Currently Using : No Exposure to Tobacco Smoke : Other: Never Smoking Status : Never smoker RAMILA PAUL - 10/13/2014 9:21 TRANSFORMER MAKER Caffeine Use Grid Caffeine Use : Current Type : Soft drinks Frequency : Occasionally RAMILA PAUL - 10/13/2014 9:21 TRANSFORMER MAKER Recreational Drug Use Grid Drug Use : None RAMILA PAUL - 10/13/2014 9:21 TRANSFORMER MAKER ID Screen Travel Within Last 21 Days : No RAMILA PAUL 10/13/2014 9:21 TRANSFORMER MAKER Source: [facility] POWERCHART Document Id: [id number] TRANSFORMER MAKER!33 SFORMER MAKER documented in this encounter Plan of Treatment Not on filedocumented as of this encounter Visit Diagnoses Not on filedocumented in this encounter
--- OUTSIDE RECORDS SUMMARY | 2022-06-30 08:32 | XMS_ITS | Encounter Summary ---
:1960 Author Organization [facility] Address [address] [place] [address] Care Team Providers Name Role Phone Unavailable Primary Care Provider Unavailable Encounter Details Date Type Department Care Team Description 05/12/2015 Hospital Encounter HX [facility] FAMILYPRA Shana John M.D. [address] [facility], [address] [place], [place] [address] (Wo rk) Social History [...] or relatives? How often do you attend mandaen or baptist More than 4 time s per year 02/02/2021 services? Do you belong to any clubs or organizations No 02/02/2021 such as mandaen groups, unions, fraternal or athletic groups, or [...] Sign Reading Time Taken Comments Blood Pressure 96/62 05/12/2015 4:56 PM CDT Pulse 76 05/12/2015 4:56 PM CDT Temperature - - Respiratory Rate 16 05/12/2015 4:56 PM CDT Oxygen Saturation - - Inhaled Oxygen Concentration - - Weight 80.4 kg (177 lb 4 oz) 05/12/2015 4:56 PM CDT Height 178 cm (5' 10.08) 05/12/2015 4:56 PM CDT Body Mass Index 25.38 05/12/2015 4:56 PM CDT documented in this encounter Medications [...] (OMEGA 3-6-9 mouth daily. FATTY ACIDS ORAL) poyrflldjjuj-Ne-swrb-min Take 1 tablet by 0 01/14 erals tablet mouth daily. UNABLE TO FIND daily. Amberen 0 09/30/2013 ketoconazole Apply 1 application 0 09/30/2014 (for_NIZORAL) 2 % topically 2 (two) shampoo times a week. metroNIDAZOLE Apply 1 application 0 09/30/2014 (for_ROSADAN) 0.75 % gel topically every morning. documented as of this encounter Progress Notes Toni John M.D. - 05/12/2015 4:57 PM CDT Clinic Full Note CHIEF COMPLAINT/REASON FOR VISIT biopsy of the left lower leg. HISTORY OF PRESENT ILLNESS Here for a biopsy if the topical medication did not resolve the lesion on her left masters. IT did not. She also has an irritated lesion on her back. IT bled. From last visit: --- left leg- 15mmx 9mm raised red edged lesion with normal skin in the middle- [1] Lesion Skin Leg Leg- try lotrisone for 2 weeks. See me if not gone- ask for 30 min. biopsy time [2] Left masters - inflamed round circular area for 3 to 4 months. At first it felt dry, then it became red and inflamed with raised edges. [3] MEDICATIONS atorvastatin 20 mg oral tablet, 20 [...] shampoo, 1 wayne, Topical, 2xWeek, 3 refills Lotrisone 1%-0.05% topical cream, 1 wayne, 2 weeks to spot on left leg, Topical, 2xDay, 0 refills magnesium citrate, 300 mL, PO, Once [...] must include the following: Cholesterol, serum, total (51332) Lipoprotein, direct measurement, high density cholesterol (HDL cholesterol) (31978) Triglycerides (19460). (01/15/2010), Varicose vein stripping (03/30/2006), Ovarian cystectomy (03/30/1987). SOCIAL HISTORY Date Time: 05/12/2015 16:56 Tobacco: Smoking Status: No Results Found Exposure: No Results Found Alcohol: Use: No Results Found Recreational Drugs: Use: None Type: No Results Found FAMILY HISTORY Mother ( at 69 year(s)):Positive: Brain tumor; Hyperlipidemia Father:Positive: Skin cancer Sister: Negative: Brother: Negative: Sister: Negative: Brother: Negative: SYSTEMS REVIEW otherwise negative VITAL SIGNS T: 37.5 ??C (Core) HR: 76 RR: 16 BP: 96 / 62 HT: 178 cm WT: 80.4 kg BMI: 25.38 PHYSICAL EXAMINATION General- No Acute Distress Skin - left masters circular area about 15mm x 9mm Area prepped with alcohol, and injected with 5 milliliters of lidocaine with epinephrine mixed withsodium bicarbonate in 9:1 ratio. Lesion then prepped with hibiclens, steriley draped, and a 3 mm punch biopsy was obtained of part of the lesion at medial edge. 2 suture of 4.0 ethilon placed. Bacitracin and a bandaid applied. Estimated blood loss less than 1 cc. also irritated SK left back- Area frozen with liquid nitrogen for 10 seconds x 2. IMPRESSION/REPORT/PLAN Keratosis Seborrheic Inflamed Post biopsy/lesion removal instructions: Gently wash with an unscented soap like Dove and pat area dry daily. Then apply vaseline or bacitracin and a bandaid daily. Keep the area moist- we want it to heal from the inside out. No pools, hot tubs or lakes until sutures out. Showers are fine. Return for suture removal in 10-14 days (If on face, then 5 days max). We discussed we may need to do a wider excision depending on the results. We will call you with results if we see them before your scheduled suture removal Post-surgical areas may be left with a little scarring. Sun will deepen and chica the scars. Avoidsun and use a good sunscreen with titanium or zinc on these areas for 6-12 months to help this. Lesion Skin Leg FOOTNOTES [1]Clinic Full Note; TONI JOHN MD 04/28/2015 15:34 CDT [2]Clinic Full Note; TONI JOHN MD 04/28/2015 15:34 CDT [3]Clinic Full Note; TONI JOHN MD 04/28/2015 15:34 CDT Electronically Signed By: TONI JOHN MD On: 05/13/2015 05:33 PM Source: [facility] POWERCHART Document Id: [id number] documented in this encounter Miscellaneous Notes Telephone Encounter - Dori Zabala L.PKarolNKarol - 06/15/2015 3:17 PM CDT *Phone Message Document Contains Addenda Addendum by DORI ZABALA LPN on 15 June 2015 15:42:33 CDT Noted Addendum by FELIX RESENDIZ CNP on 15 June 2015 15:38:50 CDT From: FELIX RESENDIZ CNP To: NORMAN Resendiz Nurse; Sent: 06/15/2015 15:38:50 CDT Subject: RE: *Phone Message Confirmed, results were sent to Dr. John who did the biopsy. From: DORI ZABALA LPN ( Tony Nurse) To: FELIX RESENDIZ CNP; Sent: 06/15/2015 15:17:25 CDT Subject: *Phone Message Caller is: ( ) Patient ( ) Mother ( ) Father ( ) Spouse ( ) Daughter ( ) Son ( ) Pharmacy ( [facility] ) Other: Physician: Patient MRN #: Reason for Call: Message: They need confirmation that you have received biopsy results. Call back to confirm [phone]. Advice/Action: Source used: ( ) Verbalizes understanding [...] back cell phone number ( ) Source: [facility] POWERCHART Document Id: [id number] Miscellaneous - Toni John M.D. - 05/19/2015 11:36 AM CDT Results Notification Document Contains Addenda Addendum by WESLEY PAUL on 19 May 2015 14:19:28 CDT Patient was called and notified. From: TONI JOHN MD To: NORMAN John Nurse; Sent: 05/19/2015 11:36:05 CDT Show up: 05/19/2015 11:36:00 CDT Subject: Results Notification Biopsy of leg is benign- no cancer! Area shows inflamed skin called stasis dermatitis and also is negativ for fungal testing. There was a blister there. Would recommend good moisturization 2x daily SKIN, LEFT LOWER LEG, BIOPSY: --- BENIGN SKIN WITH FEATURES OF STASIS DERMATITIS WITH SUBEPIDERMAL BLISTER. --- PAS STAIN FOR FUNGAL ORGANISMS IS NEGATIVE. Results: Date Result Type Result Name 05/14/2015 14:25 Document - DOC Pathology-Surg Path Source: [facility] POWERCHART Document Id: [id number] Electronically signed by Conversion, [facility] [employer] [id number] at 03/12/2017 11:50 PM CDT Miscellaneous - Toni John M.D. - 05/13/2015 5:33 PM CDT Ambulatory Patient Summary [address] [id number] Visit Information Name: MARCELINA MARCELOOLIVA HIGGINSN [facility] Number: [id number] Current Date: 05/13/2015 17:33:25 Physicians Attending Provider: TONI JOHN MD Primary Care Provider: FELIX RESENDIZ [facility] AMANDA MARCELO RHONDA has been given the [...] the Following Medications: Medication list as of 05-13-15 17:33 Attention: If you have any medications at [...] Electronically Signed By: TONI JOHN MD Signed On:12-MAY-2015 17:05:18 Your Allergies & Intolerances Substance Reaction Symptoms [...] if you dont have one. Go to [email or web address] and click on Create Your Account. Then, follow the directions to complete the online form. Youll be asked for your [facility] number which you can find at the top of this document. Your Goals/Additional instructions: Source: [facility] POWERCHART Document Id: [id number] Miscellaneous - Toni John M.D. - 05/13/2015 5:33 PM CDT Ambulatory Discharge Medication List [address] [id number] Visit Information Name: FOZIAAMANDAN [facility] Number: [id number] Visit Date: 05/13/2015 17:33:24 Attending Provider: TONI JOHN MD Primary Care Provider: FELIX RESENDIZ CNP AMANDA MARCELO has been given the [...] the Following Medications: Medication list as of 05-13-15 17:33 Attention: If you have any medications at [...] Electronically Signed By: TONI JOHN MD Signed On:12-MAY-2015 17:05:18 Additional Information: Post biopsy/lesion removal instructions: Gently wash with an unscented soap like Dove and pat area dry daily. Then apply vaseline or bacitracin and a bandaid daily. Keep the area moist- we want it to heal from the inside out. No pools, hot tubs or lakes until sutures out. Showers are fine. Return for suture removal in 10-14 days (If on face, then 5 days max). We discussed we may need to do a wider excision depending on the results. We will call you with results if we see them before your scheduled suture removal Post-surgical areas may be left with a little scarring. Sun will deepen and chica the scars. Avoidsun and use a good sunscreen with titanium or zinc on these areas for 6-12 months to help this. Source: [facility] POWERCHART Document Id: [id number] Miscellaneous - Wesley Paul L.PKarolNKarol - 05/12/2015 4:56 PM CDT Adult Director Learning Services Intake/History Document Has Been Updated Adult Director Learning Services Intake/History Entered On: 05/12/2015 16:57 CDT Performed On: 05/12/2015 16:56 CDT by WESLEY PAUL Intake Chief Complaint : biopsy of the left lower leg. WESLEY PAUL - 05/12/2015 16:59 CDT Temperature Core : 37.5 DegC(Converted to: 99.5 DegF) Peripheral Pulse Rate : 76 /min Respiratory Rate : 16 /min Systolic Blood Pressure : 96 mmHg Diastolic Blood Pressure : 62 mmHg NIBP Mean : 73 mmHg BP Location : Left upper extremity Blood Pressure Cuff Size : Regular Height : 178 cm(Converted to: 5 ft 10 inch(es), 70 inch(es)) Actual Weight : 80.4 kg(Converted to: 177 lb 4 oz) Weight Source : Standing scale Dosing Weight Clinic : 80.4 kg Clinic BSA : 1.99 Body Mass Index : 25.38 kg/m2 WESLEY PAUL - 05/12/2015 16:56 CDT General Info Information Given By : Patient Languages : Senegalese Is Patient Female and 13-50 no hysterectomy : No WESLEY PAUL - 05/12/2015 16:56 CDT Subjective Pain Symptoms : No WESLEY PAUL - 05/12/2015 16:56 CDT Dependent Habits Tobacco Use/Currently Using : No Exposure to Tobacco Smoke : Other: Never Smoking Status : Never smoker WESLEY PAUL - 05/12/2015 16:56 CDT Caffeine Use Grid Caffeine Use : Current Type : Soft drinks Frequency : Occasionally WESLEY PAUL - 05/12/2015 16:56 CDT Recreational Drug Use Grid Drug Use : None WESLEY PAUL - 05/12/2015 16:56 CDT [facility] POWER[facility] Document Id: [id number] CDT!3 documented in this encounter Plan of Treatment Not on filedocumented as of this encounter Procedures Procedure Name Priority Date/Time Associated Diagnosis Comme nts SURGICAL PATHOLOGY Routine 05/12/2015 11:47 AM Re sults for this CDT procedure are i n the results section. documented in this encounter Results Pathology Surgical Pathology (05/12/2015 11:47 AM CDT) Specimen (Source) Anatomical Collection Method Collection Time Re ceived Time Location / / Volume Laterality 05/12/2015 11:47 AM CDT Narrative [facility] - 05/14/2015 2:25 PM CDT [facility] in [address] [place] [address] Patient Name: AMANDA MARCELO Patient ID #: [id number] Collected: 05/12/2015 Address: [facility]/State/Zip: [address] [place], [place] ??[id number] Received: Reported: 05/13/2015 05/14/2015 Soc. Sec. #: ?/Age/Sex 1960 (Age: 55) ??F Physician(s): WM JOHN Copy To: ? [facility] ??[id number] [address] [place] [address], ??[place] ??[id number] SURGICAL PATHOLOGY REPORT FINAL DIAGNOSIS: SKIN, LEFT LOWER LEG, BIOPSY: --- BENIGN SKIN WITH FEATURES OF STASIS DERMATITIS WITH SUBEPIDERMAL BLISTER. --- PAS STAIN FOR FUNGAL ORGANISMS IS NE GATJENNIFER. [facility]/05/14/2015 NEGRO OROZCO M.D. Report electronically released. Interpretation by NEGRO OROZCO M.D. SPECIMEN(S) RECEIVED: LEFT LOWER LEG CLINICAL HISTORY: RED LESION UNRESPONSIVE TO LOTRISONE ??R ULE OUT BASAL CELL CARCINOMA GROSS DESCRIPTION: Consists of a 2 mm skin punch. Sectioned . ESB, one cassette. ([id number], [id number]) DDG/DEIDRE/05/13/2015 MICROSCOPIC DESCRIPTION: CONTROLS REVIEWED; RESULTS ACCEPTABLE Reviewed by Negro Orozco M.D.; Path ologist DEIDRE/05/14/2015 Toni John M.D. LAB SURG PATH ORDERABLES Performing Organization Address [facility] Code Phon e Number [facility] documented in this encounter Visit Diagnoses Not on filedocumented in this encounter
--- OUTSIDE RECORDS SUMMARY | 2022-06-30 08:32 | XMS_ITS | Encounter Summary ---
:1960 Author Organization [facility] Address [address] [place] [address] Care Team Providers Name Role Phone Unavailable Primary Care Provider Unavailable Encounter Details Date Type Department Care Team Description 07/29/2014 Hospital Encounter HX NO MAPPING Marty Freeman M.D. [address] [place], [place] [phone] (Wo rk) Social History [...] or relatives? How often do you attend hindu or confucianist More than 4 time s per year 02/02/2021 services? Do you belong to any clubs or organizations No 02/02/2021 such as hindu groups, unions, fraternal or athletic groups, or [...] (OMEGA 3-6-9 FATTY mouth daily. ACIDS ORAL) kzmcbefwpuai-Gd-zeig-mine Take 1 tablet by mouth 0 01/14/2010 rals tablet daily. UNABLE TO FIND daily. Raeganen 0 09/30/2013 documented as of this encounter Plan of Treatment Not on filedocumented as of this encounter Visit Diagnoses Not on filedocumented in this encounter
--- OUTSIDE RECORDS SUMMARY | 2022-06-30 08:32 | XMS_ITS | Encounter Summary ---
:1960 [facility] Address [address] [place] [address] Care Team Providers Name Role Phone Unavailable Primary Care Provider Unavailable Encounter Details Date Type Department Care Team Description 05/07/2015 Hospital Encounter [facility]X [facility] ULTRASOUN Rula Santos, UPHOLSTERER ASSEMBLY LINE, C.N.P. [address] [place] [address] (Wo rk) Social History Tobacco [...] How often do you attend jainism or zoroastrianism More than 4 time s per year [...] - - Height 178 cm (5' 10.08) 05/07/2015 8:28 AM CDT Body Mass Index - - documented [...] (OMEGA 3-6-9 mouth daily. FATTY ACIDS ORAL) kdacotjcijkl-Nj-bnxx-min Take 1 tablet by 0 01/14 erals tablet mouth daily. UNABLE TO FIND daily. Amberen 0 09/30/2013 ketoconazole Apply 1 application 0 09/30/2014 (for_NIZORAL) 2 % topically 2 (two) shampoo times a week. metroNIDAZOLE Apply 1 application 0 09/30/2014 (for_ROSADAN) 0.75 % gel topically every morning. documented as of this encounter Miscellaneous Notes Miscellaneous - Felix Santos, ASHIA, C.N.P. - 05/07/2015 10:51 AM CDT From: FELIX SANTOS COMMUNITY ARTIST Sent: 05/07/2015 10:51:58 CDT Phone call with thyroid ultrasound results. Radiologist recommends biopsy. Patient would like to go to [place]. Online referral will be sent. Source: [facility] POWERCHART Document Id: [id number] Electronically signed by Conversion, [facility] Flux Core Welder [id number] at 03/12/2017 11:50 PM CDT documented in this encounter Plan of Treatment Not on filedocumented as of this encounter Procedures Procedure Name Priority Date/Time Associated Diagnosis Comme nts US THYROID Routine 05/07/2015 8:35 AM Results f or this CDT procedure are i n the results section . documented in this encounter Results Ultrasound thyroid (05/07/2015 8:35 AM CDT) Anatomical Region Laterality Modality Head and Neck Ultrasound Specimen (Source) Anatomical Collection Method Collection Time Re ceived Time Location / / Volume Laterality 05/07/2015 8:35 AM CDT Impressions 05/07/2015 10:37 AM CDT Multinodular thyroid. Dominant inferior medial right thyroid lobe/isthmus nodule with solid and cysti c components as well as internal vascular flow and questionable punctate echogenic calcification measuring up to 2.8 cm. Gi araceli size, fine needle aspiration should be considered. If this is not performed, six-month followup ultrasound recommended. Narrative 05/07/2015 10:37 AM CDT Sonographic evaluation of the thyroid pe rformed utilizing color Doppler and grayscale imaging. COMPARISON: May 06, 2014 FINDINGS: Right lobe of the thyroid measures 5.8 x 1.4 x 2.0 cm providing a volume of 8.5 cc. Left lobe of the thyroid measures 5.5 x 1.4 x 2.2 cm providing a volume of 8.9 cc. Isthmus measures 4 mm in thickness. Multiple bilateral partially cystic thyr oid lobe nodules. Some containing thin septation. Nodules withi n the right lobe measuring less than 1 cm. Multiple left lobe nodul es measuring between 1.3-1.4 cm maximal dimension. These are nearly c ompletely cystic with thin septations. Involving the inferior medial right lobe and right isthmus is a heterogeneous predominantly solid nodule with cystic components. This measures 2.1 x 2.8 x 1.8 cm. Vascular fl ow present. This nodule was not present or was not clearly delineate d on the prior comparison examination. Procedure Note Thomas Keyes M.D. / Provider, Aimee knowles M.D. - 02/22/2017 Sonographic evaluation of the thyroid pe rformed utilizing color Doppler and grayscale imaging. COMPARISON: May 06, 2014 FINDINGS: Right lobe of the thyroid measures 5.8 x 1.4 x 2.0 cm providing a volume of 8.5 cc. Left lobe of the thyroid measures 5.5 x 1.4 x 2.2 cm providing a volume of 8.9 cc. Isthmus measures 4 mm in thickness. Multiple bilateral partially cystic thyr oid lobe nodules. Some containing thin septation. Nodules withi n the right lobe measuring less than 1 cm. Multiple left lobe nodul es measuring between 1.3-1.4 cm maximal dimension. These are nearly c ompletely cystic with thin septations. Involving the inferior medial right lobe and right isthmus is a heterogeneous predominantly solid nodule with cystic components. This measures 2.1 x 2.8 x 1.8 cm. Vascular fl ow present. This nodule was not present or was not clearly delineate d on the prior comparison examination. IMPRESSION: Multinodular thyroid. Dominant inferior medial right thyroid lobe/isthmus nodule with solid and cysti c components as well as internal vascular flow and questionable punctate echogenic calcification measuring up to 2.8 cm. Gi araceli size, fine needle aspiration should be considered. If this is not performed, six-month followup ultrasound recommended. Delaney Jasso R.V.T., R.Alis.M.S. IMG US PROCEDURES documented in this encounter Visit Diagnoses Not on filedocumented in this encounter
--- OUTSIDE RECORDS SUMMARY | 2022-06-30 08:32 | XMS_ITS | Encounter Summary ---
:1960 Author Organization [facility] Address [address] [place] [address] Care Team Providers Name Role Phone Unavailable Primary Care Provider Unavailable Encounter Details Date Type Department Care Team Description 10/06/2014 Hospital Encounter HX [facility] Rell Fields M.D. [address], [place] [address] (Wo rk) Social History [...] or relatives? How often do you attend hinduism or sikhism More than 4 time s per year 02/02/2021 services? Do you belong to any clubs or organizations No 02/02/2021 such as hinduism groups, unions, fraternal or athletic groups, or [...] [place] Time Taken Comments Blood Pressure 108/60 10/06/2014 4:21 PM COMPLIANCE MGR Pulse 78 10/06/2014 4:21 PM COMPLIANCE MGR Temperature - - Respiratory Rate 16 10/06/2014 4:21 PM COMPLIANCE MGR Oxygen Saturation - - Inhaled Oxygen Concentration - - Weight 82 kg (180 lb 12.4 oz) 10/06/2014 4:21 PM COMPLIANCE MGR Height 178 cm (5' 10.08) 10/06/2014 4:21 PM COMPLIANCE MGR Body Mass Index 25.88 10/06/2014 4:21 PM COMPLIANCE MGR documented in this encounter Medications at Time [...] (OMEGA 3-6-9 mouth daily. FATTY ACIDS ORAL) llputvykfjav-Mx-sveb-min Take 1 tablet by 0 01/14 erals tablet mouth daily. UNABLE TO FIND daily. Amberen 0 09/30/2013 ketoconazole Apply 1 application 0 09/30/2014 (for_NIZORAL) 2 % topically 2 (two) shampoo times a week. metroNIDAZOLE Apply 1 application 0 09/30/2014 (for_ROSADAN) 0.75 % gel topically every morning. documented as of this encounter Progress Notes Raven Barber M.D. - 10/06/2014 4:10 PM CST [id number] CHIEF COMPLAINT/REASON FOR VISIT Postop check HISTORY OF PRESENT ILLNESS Amanda is a 54-year-old, nulliparous female, who is approximately 10 weeks postop status post total laparoscopic hysterectomy, bilateral salpingectomy and cystoscopy, who presents for postop follow up today. Amanda has had occasional bleeding in the postoperative period and continues have brownish colored discharge requiring her wear a pad each day. This does seem to be gradually decreasing and she reports that over the last week it has decreased a lot more so than in the past. Otherwise, she is voiding, ambulating, and tolerating a regular diet without difficulty and having normal bowel movements. She does report that her last episode of bright red bleeding occurred on 09/23/2014 but twice now in September she has had this bright red bleeding lasting for about 12 hours. This is usually followed with the typical brownish discharge. Each time she was either bending or reaching. MEDICATIONS See EMR. ALLERGIES See EMR. SYSTEMS [...] GENITOURINARY: No pain or burning with urination, heavy periods, painful periods, abnormal vaginal discharge, leaking urine, leaking stool or gas.Positive for irregular vaginal bleeding SKIN: No rashes or skin lesions. BREASTS: No masses or lumps, no discharge from the nipples. NEUROLOGIC: No difficulty with memory, numbness, tingling, falls. PSY CHIATRIC: No anxiety, depression, or difficulty sleeping. ENDOCRINE: No heat intolerance, cold intolerance, excessive thirst or hair loss. VITAL SIGNS See EMR. PHYSICAL EXAMINATION GENERAL: Well-nourished female, in no acute distress. PELVIC EXAM: External genitalia without lesions or abnormalities, normal pubic hair distribution, urethral meatus normal location and appearance, without masses. Vaginal mucosa pink and moist with a small amount of thin, brownish discharge noted at the vaginal cuff apex. The mucosal separation just tothe left of the midline, but I had noted the bright red blood present at the time of the last examination was no longer present. I could not see any evidence of bright red bleeding at this time. The vaginal cuff has excellent support and appears to be healing well and without signs of separation or dehiscence. Externally there is an approximately 4 x 4 mm, elevated skin tag in the right groin posteriorly. LOWER EXTREMITIES: Nontender, no edema. IMPRESSION/REPORT/PLAN A 54-year-old, nulliparous female, who is approximately 10 weeks postop status post total laparoscopic hysterectomy, bilateral salpingectomy and cystoscopy, who presents for follow up postoperatively and continues to have brownish discharge and has had 2 episodes of bright red bleeding in September. 1. Postoperative progress: Other than this bleeding issue the patient has made excellent postoperative progress. 2. Brownish discharge: This has gradually improved. I note no areas of active bleeding today and no bright red blood. I think the area is healing slowly. I am not able to visualize any evidence of separation today. I will see the patient back in 2 weeks and would expect this to be mostly resolved in that time. 3. Followup: Two weeks. Raven Barber M.D./rui Electronically Signed By: RAVEN BARBER MD On: 10/11/2014 12:03 PM Modified by and Electronically Signed by: RAVEN BARBER MD On: 10/11/2014 12:03 PM Source: [facility] MHSDOLBEYNONRADSYS Document Id: [id number] LIANCE MGR documented in this encounter Miscellaneous Notes Miscellaneous - Raven Barber M.D. - 10/06/2014 4:39 PM CST Ambulatory Patient Summary [address] [id number] Visit Information Name: AMANDA MARCELO [facility] Number: [id number] Visit Date: 10/06/2014 16:39:37 Attending Provider: RAVEN BARBER MD Primary Care Provider: FELIX SANTOS TELECASTING ENGINEER AMANDA MARCELO has been given the following [...] the Following Medications: Medication list as of 10-06-14 16:39 Attention: If you have any medications at [...] Electronically Signed By: RAVEN BARBER MD Signed On:06-OCT-2014 16:39:27 Additional Information: Source: [facility] POWERCHART Document Id: [id number] LIANCE MGR Miscellaneous - Raven Barber M.D. - 10/06/2014 4:39 PM CST Ambulatory Discharge Medication List [address] [id number] Visit Information Name: AMANDA MARCELO [facility] Number: [id number] Visit Date: 10/06/2014 16:39:35 Attending Provider: RAVEN BARBER MD Primary Care Provider: FELIX SANTOS TELECASTING ENGINEER FOZIA AMANDA RHONDA has been given the following list [...] the Following Medications: Medication list as of 10-06-14 16:39 Attention: If you have any medications at [...] Electronically Signed By: RAVEN BARBER MD Signed On:06-OCT-2014 16:39:27 Additional Information: Source: [facility] Elastic IntelligenceCHART Document Id: [id number] LIANCE MGR Miscellaneous - Forrest Fishman LKarolP.N. - 10/06/2014 4:21 PM CST Adult Scale Balancer Intake/History Adult Scale Balancer Intake/History Entered On: 10/06/2014 16:23 COMPLIANCE MGR Performed On: 10/06/2014 16:21 COMPLIANCE MGR by FORREST FISHMAN Intake Chief Complaint : Post op Peripheral Pulse Rate : 78 /min Respiratory Rate : 16 /min Heart [...] 2.01 Body Mass Index : 25.88 kg/m2 KADIMARIFORREST L - 10/06/2014 16:21 COMPLIANCE MGR General Info Languages : [place]ese Is Patient Female and 13-50 no hysterectomy : Yes Status : Patient denies Are you ? : No KADIMARIFORREST L - 10/06/2014 16:21 COMPLIANCE MGR Subjective Pain Symptoms : No KADIMARIFORREST L - 10/06/2014 16:21 COMPLIANCE MGR Dependent Habits Tobacco Use/Currently Using : No Exposure to Tobacco Smoke : Other: Never Smoking Status : Never smoker KADI FORREST Ahumada - 10/06/2014 16:21 COMPLIANCE MGR Caffeine Use Grid Caffeine Use : Current Type : Soft drinks Frequency : Occasionally KADIMARIFORREST L - 10/06/2014 16:21 COMPLIANCE MGR Recreational Drug Use Grid Drug Use : None FORREST FISHMAN - 10/06/2014 16:21 COMPLIANCE MGR ID Screen Travel Within Last 21 Days : No KADIMARIFORREST L 10/06/2014 16:21 COMPLIANCE MGR Source: [facility] POWERCHART Document Id: [id number] COMPLIANCE MGR!38 LIANCE MGR documented in this encounter Plan of Treatment Not on filedocumented as of this encounter Visit Diagnoses Not on filedocumented in this encounter
--- OUTSIDE RECORDS SUMMARY | 2022-06-30 08:32 | XMS_ITS | Encounter Summary ---
:1960 Author Organization [facility] Address [address] [place] [address] Care Team Providers Name Role Phone Unavailable Primary Care Provider Unavailable Encounter Details Date Type Department Care Team Description 08/21/2014 Hospital Encounter HX [facility] LAB Shana John M.D. [address] [facility], [address] [place], [place] [address] (Wo rk) Social [...] or relatives? How often do you attend confucianism or latter day More than 4 time s per year 02/02/2021 services? Do you belong to any clubs or organizations No 02/02/2021 such as confucianism groups, unions, fraternal or athletic groups, or [...] place to sleep or slept in a prison (including now)? Sex Assigned at Date Recorded Not on file documented as of this encounter Last Filed Vital Signs Vital Sign Reading Time Taken Comments Blood Pressure - - Pulse - - Temperature - - Respiratory Rate - - Oxygen Saturation - - Inhaled Oxygen Concentration - - Weight - - Height 179 cm (5' 10.47) 08/21/2014 9:22 AM GRINDING MACHINE OPERATOR Body Mass Index - - documented in [...] (OMEGA 3-6-9 FATTY mouth daily. ACIDS ORAL) qxwavfwuouac-Bi-gmum-mine Take 1 tablet by mouth 0 01/14/2010 rals tablet daily. UNABLE TO FIND daily. Amberen 0 09/30/2013 documented as of this encounter Miscellaneous Notes Miscellaneous - Toni John M.D. - 08/22/2014 5:33 PM CST meds From: TONI JOHN MD To: YAMEL MARCELO Sent: 08/22/2014 17:33:36 GRINDING MACHINE OPERATOR Subject: meds Tried calling you but no answer- Your potassium is high- this can cause heart rhythm issues if it goes higher- recommend you stop thespironolactone. We should recheck potassium Monday then at a lab visit. Source: [facility] Viss Document Id: [id number] Electronically signed by Conversion, [facility] Infantry Assaultman [id number] at 03/15/2017 12:05 AM CDT documented in this encounter Plan of Treatment Not on filedocumented as of this encounter Procedures Procedure Name Priority Date/Time Associated Diagnosis Comme nts BASIC METABOLIC Routine 08/21/2014 9:43 AM Result s for this PANEL, S/P GRINDING MACHINE OPERATOR procedure are i n the results section. documented in this encounter Results (ABNORMAL) BMP (Basic Metabolic Panel) (08/21/2014 9:43 AM GRINDING MACHINE OPERATOR) P athologist Signature BUN (Blood Urea 16 6 - 20 POWERCHART Nitrogen), S MGDL Creatinine 0.9 0.7 - 1.2 POWERCHART MGDL Glucose 111 POWERCHART Potassium, S 5.5 (H) 3.5 - 4.8 POWERCHART MMOLL Sodium, S 144 135 - 145 POWERCHART MMOLL Chloride, S 102 100 - 108 POWERCHART MMOLL CO2 Total 30 22 - 30 POWERCHART MMOLL Calcium, Total, 10.0 8.5 - 10.5 POWERCHART S MGDL HXeGFR (MDRD) >60 MLMIN POWERCHART eGFR >60 MLMIN POWERCHART Black/ Specimen (Source) Anatomical Collection Method Collection Time Re ceived Time Location / / Volume Laterality Blood 08/21/2014 9:43 AM GRINDING MACHINE OPERATOR Toni John M.D. LAB BLOOD ADD-ON Performing Organization Address City/State/ZIP Code Phon e Number POWERCHART documented in this encounter Visit Diagnoses Not on filedocumented in this encounter
--- OUTSIDE RECORDS SUMMARY | 2022-06-30 08:32 | XMS_ITS | Encounter Summary ---
:1960 Author Organization [facility] Address [address] [place] [address] Care Team Providers Name Role Phone Unavailable Primary Care Provider Unavailable Encounter Details Date Type Department Care Team Description 11/12/2014 Hospital Encounter HX [facility] FAMILYPRA Shana John M.D. [address] [facility], [address] [place], [place] [address] (Wo rk) Social History [...] How often do you attend sabianism or confucianism More than 4 time s per year [...] - - Height 178 cm (5' 10.08) 11/12/2014 3:57 PM FILM CASTING OPERATOR Body Mass Index - - documented [...] (OMEGA 3-6-9 mouth daily. FATTY ACIDS ORAL) euxvbewabaxm-By-umjm-min Take 1 tablet by 0 01/14 erals tablet mouth daily. UNABLE TO FIND daily. Amberen 0 09/30/2013 ketoconazole Apply 1 application 0 09/30/2014 (for_NIZORAL) 2 % topically 2 (two) shampoo times a week. metroNIDAZOLE Apply 1 application 0 09/30/2014 (for_ROSADAN) 0.75 % gel topically every morning. documented as of this encounter Progress Notes Toni John M.D. - 11/12/2014 4:07 PM CST Clinic Full Note HISTORY OF PRESENT ILLNESS She started the [...] must include the following: Cholesterol, serum, total (45143) Lipoprotein, direct measurement, high density cholesterol (HDL cholesterol) (99734) Triglycerides (92184). (01/15/2010), Varicose vein stripping (03/30/2006), Ovarian cystectomy (03/30/1987). SOCIAL HISTORY No Data Available FAMILY HISTORY Mother ( at 69 year(s)):Positive: Brain tumor; Hyperlipidemia Father:Positive: Skin cancer Sister: Negative: Brother: Negative: Sister: Negative: Brother: Negative: SYSTEMS REVIEW otherwise negative SYSTEMS REVIEW otherwise negative VITAL SIGNS T: 37.0 ??C (Core) RR: 16 BP: 106 / 52 HT: 178 cm VITAL SIGNS HT: 178 cm PHYSICAL EXAMINATION General: No acute distress Skin: Chest- erythematous patches- see Pictures taken of this skin lesion and will be uploaded to [employer] PHYSICAL EXAMINATION General- No Acute Distress SKin- chest erythematous in spots- Pictures taken of this skin lesion and will be uploaded to [employer] Noted a 3 mm area on the left upper arm IMPRESSION/REPORT/PLAN Acne Rosacea continue meds-= give tretinoin a couple months to work Sun Damaged Skin 1. For now, use something unscented and hypoallergenic for a soap such as Dove. Continue another 2 weeks and recheck then. [1] TODAY: completed 2.5 weeks carac then had quite a reaction and took a week break. Then did 10 more days. Still red, sometimes itchy, TCM helps has a new spot on left upper arm- IMPRESSION/REPORT/PLAN Lesion Skin Arm recheck 6 months Sun Damaged Skin recheck carack treated chest in 6 months Orders: Return Visit [facility] Med 15 Min FOOTNOTES [1] Clinic Full Note; TONI JOHN MD 10/13/2014 09:24 FILM CASTING OPERATOR Electronically Signed By: TONI JOHN MD On: 11/12/2014 04:19 PM Source: [facility] POWERCHART Document Id: [id number] CASTING OPERATOR documented in this encounter Plan of Treatment Not on filedocumented as of this encounter Visit Diagnoses Not on filedocumented in this encounter
--- OUTSIDE RECORDS SUMMARY | 2022-06-30 08:33 | XMS_ITS | Encounter Summary ---
:1960 Author Organization [facility] Address [address] [place] [address] Care Team Providers Name Role Phone Unavailable Primary Care Provider Unavailable Encounter Details Date Type Department Care Team Description 01/27/2014 Hospital Encounter HX [facility] MyrRula donovan, GEOPHYSICS TEACHER, C.N.P. [address] [place] [address] (Wo rk) Social History Tobacco [...] or relatives? How often do you attend advent or rastafari More than 4 time s per year 02/02/2021 services? Do you belong to any clubs or organizations No 02/02/2021 such as advent groups, unions, fraternal or athletic groups, or [...] Sign Reading Time Taken Comments Blood Pressure 102/68 01/27/2014 10:30 AM CDT Pulse 68 01/27/2014 10:30 AM CDT Temperature - - Respiratory Rate 16 01/27/2014 10:30 AM CDT Oxygen Saturation - - Inhaled Oxygen Concentration - - Weight 84.8 kg (186 lb 15.2 oz) 01/27/2014 10:30 AM CDT Height - - Body Mass Index 26.47 01/21/2014 8:13 AM CDT documented in this encounter Medications at Time of Discharge Medication Sig Dispensed Refills Start Date End Date calcium carbonate-vitamin Take 1 tablet by mouth 0 04/04/2012 D3 (CALCIUM 600 + D,3,) daily. 600 mg calcium- 200 unit capsule FSH/FLX/PRIM/CUR/BOR/OM3, Take 1 capsule by 0 05/2014 6,9 5 (OMEGA 3-6-9 FATTY mouth daily. ACIDS ORAL) bdmyzcgvftgk-Cf-fcsc-mine Take 1 tablet by mouth 0 01/14/2010 rals tablet daily. UNABLE TO FIND daily. Amberen 0 09/30/2013 documented as of this encounter Progress Notes Felix Santos, ASHIA, C.N.P. - 01/27/2014 10:20 AM CDT [id number] CHIEF COMPLAINT/REASON FOR VISIT CT scan results. HISTORY OF PRESENT ILLNESS Yamel was in for a preop. Chest x-ray showed right lung nodule with radiologist recommending a CT scan which she had on 01/24 at [facility]. Results appear benign, however radiologist is recommending a followup again in 3 months for stability and that will be ordered. Otherwise she should be fine for her planned surgery. MEDICATIONS See depart summary from today. ALLERGIES None. REVIEW OF SYSTEMS Positive for that mentioned. PREVENTIVE: Up to date. VITAL SIGNS See EMR. PHYSICAL EXAMINATION GENERAL: Well-developed, well-nourished female, in no acute distress. SKIN: Warm and dry. HEART: Regular rate and rhythm. LUNGS: Clear to auscultation. IMPRESSION/REPORT/PLAN CT scan chest results appear negative however we will be following up with a CT again in 3 months for the stability per radiology's recommendation, and she has that on her calendar and a put a reminderin the EMR. Felix Santos CNP/rui Electronically Signed By: FELIX SANTOS CNP On: 01/28/2014 10:19 AM Source: [facility] MHSDOLBEYNONRADSYS Document Id: [id number] documented in this encounter Miscellaneous Notes Miscellaneous - Felix Santos APRN, C.N.P. - 04/28/2014 2:11 PM CDT From: FELIX SANTOS CNP Sent: 04/28/2014 14:11:22 CDT Phone call with chest CT results. Radiologist recommends follow up CT in 6 months to assess stability of left apex nodule. Also found a new 6mm thyroid nodule on the right. Recommends thyroid US. Orders put in for her to schedule US. Source: [facility] POWERCHART Document Id: [id number] Electronically signed by Sven [facility] [employer] Team Member [id number] at 03/14/2017 10:43 AM CDT Miscellaneous - Felix Santos APRN, C.N.P. - 01/27/2014 11:47 AM CDT Ambulatory Patient Summary [address] [id number] Visit Information Name: YAMEL MARCELO [facility] Number: [id number] Current Date: 01/27/2014 11:47:46 Physicians Attending Provider: FELIX SANTOS CNP Primary Care Provider: FELIX SANTOS CNP FOZIAYAMEL has been given the following list of [...] 1 Tablet(s), Oral, three times a day magnesium citrate (magnesium citrate) 300 Milliliter, Oral, once Misc Prescription (Misc Prescription) amberen, once a day multivitamin (Vitamin B Complex oral tablet) 1 Tablet(s), Oral, once a day omega-3 polyunsaturated fatty acids (Fish Oil 1000 mg oral capsule) 1 cap, Oral, once a day verapamil (verapamil 180 mg/24 hours oral capsule, extended release) 1 cap, Oral, once a day for Reynaud's disease Stop Taking the Following Medications: Medication list as of 01-27-14 11:47 Attention: If you have any medications at [...] Electronically Signed By: FELIX SANTOS CNP Signed On:27-JAN-2014 11:47:14 Your Allergies & Intolerances Substance Reaction Symptoms Category Comments No Known Allergies Drug Your Problem List Problem Status Onset Comments Raynaud's disease Active Hypercholesterolemia Active 03/23/2010 Varicose veins Active Menorrhagia Active Skin cancer Active 01/28/2010 06/11/10 left lower leg Perimenopausal Active 12/13/2013 Mood disorder NOS. Active 12/13/2013 Nodule Lung Active 01/24/2014 01/27/14 Right upper lobe /CT: benign appearing calcification repeat CT in 3 months for stability Your Upcoming Appointments Date Time Location Reason Provider No Appointments found Attention: Contact your local Clinic if further appointment detail needed. [id number] PULMONARY NODULE A pulmonary nodule is a finding on a chest x-ray. It is usually found on an x- ray taken for other reasons. It is a single lesion up to about an inch in size, surrounded by normal lung tissue. Most nodules are benign (non-cancerous). However, a nodule could be an early stage of primary lung cancer; or, it may be a sign of cancer that has spread from another part of the body (metastatic). Once a nodule is found on a chest x- ray, further testing is needed to determine if it is benign or malignant (cancerous). The following studies may be scheduled as an outpatient to diagnose your nodule. ?? Comparison of todays x-ray to prior x-rays ?? Chest CT scan ?? Bronchoscopy (a procedure that allows the doctor to see the air passages inside the lung) ?? Needle biopsy Test Results: ?? If your nodule proves to be benign, continued follow up over the next five years is usually advised. ?? If the tests cannot tell if your nodule is benign or malignant, then, surgery may be advised. ?? If your tests show your nodule is definitely malignant, surgery will probably be advised. The best survival rates from lung cancer occur when the primary tumor is small (less than one inch).Follow your doctor's advice regarding the timing of further testing. Prompt treatment gives the bestchance for curing lung cancer. Prevention Smoking remains one of the greatest risk factors for lung cancer. If you smoke, it is essential thatyou quit in order to lower your risk of lung cancer. Talk to your doctor about ways to help you quit. Visit the following links for more information: ?? www.smokefree.gov/pubs/clearing_the_air.pdf ?? www.smokefree.gov ?? www.quitnet.com HOME CARE: Most patients with a pulmonary nodule will have no symptoms. Therefore, no special home care is required. You may resume your usual activities and diet. FOLLOW UP with your doctor or as advised by our staff. Keep your appointments for further testing. You can get more information about lung cancer from the following: ?? [place] Lung Association 949-716-8475 lung.org ?? National Cancer [place] 808-434-0227 www.cancer.gov RETURN PROMPTLY or contact your doctor if any of the following occur: ?? Fever of 100.4??F (38??C) or higher, or as directed by your healthcare provider ?? Coughing up blood ?? Chest pain or shortness of breath Unintended weight change ?? [id number] [facility], [address] [place] [address], [place] [address]. All rights reserved. This information is not intended as a substitute for professional medical care. Always follow your healthcare professional's instructions. Your Goals/Additional instructions: Source: [facility] POWERCHART Document Id: [id number] Miscellaneous - Felix Santos APRN, C.N.P. - 01/27/2014 11:47 AM CDT Ambulatory Discharge Medication List [id number] [place], [place] [phone] Visit Information Name: YAMEL MARCELO [facility] Number: [id number] Visit Date: 01/27/2014 11:47:44 Attending Provider: FELIX SANTOS CNP Primary Care Provider: FELIX SANTOS CNP YAMEL MARCELO has been given the following [...] 1 Tablet(s), Oral, three times a day magnesium citrate (magnesium citrate) 300 Milliliter, Oral, once Misc Prescription (Misc Prescription) amberen, once a day multivitamin (Vitamin B Complex oral tablet) 1 Tablet(s), Oral, once a day omega-3 polyunsaturated fatty acids (Fish Oil 1000 mg oral capsule) 1 cap, Oral, once a day verapamil (verapamil 180 mg/24 hours oral capsule, extended release) 1 cap, Oral, once a day for Reynaud's disease Stop Taking the Following Medications: Medication list as of 01-27-14 11:47 Attention: If you have any medications at [...] Electronically Signed By: FELIX SANTOS CNP Signed On:27-JAN-2014 11:47:14 Additional Information: Source: [facility] POWERCHART Document Id: [id number] Miscellaneous - Felix Santos APRN, C.N.P. - 01/27/2014 10:56 AM CDT Reminder Msg Document Contains Addenda Addendum by WHITNEY ZABALA LPN on 22 April 2014 10:20:43 CDT Creatinine completed today was 0.9. Results called to [facility] scheduling. Will have CT scan of chest done on 04/24/14. Addendum by WHITNEY ZABALA LPN on 15 April 2014 13:26:50 CDT Informed Yamel to schedule a lab only appointment for BUN and creatinine. scheduled for 04/22/14. Prior Auth has been approved for CT of the chest. Addendum by WHITNEY ZABALA LPN on 14 April 2014 14:28:15 CDT Noted. Addendum by FELIX SANTOS CNP on 14 April 2014 13:54:24 CDT From: FELIX SANTOS CNP To: WHITNEY ZABALA LPN; Sent: 04/14/2014 13:54:24 CDT Show up: 04/14/2014 13:53:00 CDT Subject: RE: Reminder Msg done Addendum by WHITNEY ZABALA LPN on 14 April 2014 13:30:45 CDT Felix Ulloa completed the Diagnostic requisition and Prior Auth. for CT of the chest. Please put orderin for BUN and creatinine. From: FELIX SANTOS CNP To: WHITNEY ZABALA LPN; Sent: 01/27/2014 10:56:38 CDT Show up: 04/14/2014 10:56:00 CDT Subject: Reminder Msg Due Date/Time: 04/25/2014 10:55:00 CDT Please Remember to: Needs follow up CT chest for right lung nodule / order BUN and creatinine. 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 [employer] Document Id: [id number] Electronically signed by [facility] [employer] Agent Team Member [id number] at 03/14/2017 10:43 AM CDT Miscellaneous - Whitney Zabala L.P.N. 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 Temperature Core : 36.7 DegC(Converted to: 98.1 DegF) Peripheral Pulse Rate : 68 /min Respiratory Rate : 16 /min Heart Rhythm : Regular Systolic Blood Pressure : 102 mmHg Diastolic Blood Pressure : 68 mmHg NIBP Mean : 79 mmHg BP Location : Left upper extremity Blood Pressure Cuff Size : Regular Actual Weight : 84.8 kg(Converted to: 186 lb 15 oz) Weight Source : Standing scale Dosing Weight Clinic : 84.8 kg WHITNEY ZABALA LPN - 01/27/2014 10:30 CDT General Info Information Given By : Patient Languages : Japanese CHANDAN ZABALAPAUL MUELLER LPN - 01/27/2014 10:30 CDT Subjective Pain Symptoms : No WHITNEY ZABALA LPN - 01/27/2014 10:30 CDT Dependent Habits Tobacco Use/Currently Using : No Smoking Status : Never smoker WHITNEY ZABALA LPN - 01/27/2014 10:30 CDT Caffeine Use Grid Caffeine Use : Current Type : Soft drinks Frequency : Occasionally WHITNEY ZABALA LPN - 01/27/2014 10:30 CDT Recreational Drug Use Grid Drug Use : None WHITNEY ZABALA LPN - 01/27/2014 10:30 CDT Source: [facility] [employer] Document Id: [id number] CDT!31 documented in this encounter Plan of Treatment Not on filedocumented as of this encounter Procedures Procedure Name Priority Date/Time Associated Diagnosis Comme nts SURGICAL PATHOLOGY Routine 01/28/2014 12:00 AM Re sults for this CDT procedure are i n the results section. documented in this encounter Results Pathology Surgical Pathology (01/28/2014 12:00 AM CDT) Specimen (Source) Anatomical Location Collection Method / Collectio n Time Received Time / Laterality Volume 01/28/2014 Narrative [facility] - 01/31/20 14 1:24 PM CDT PATIENT IMAGES Choose the Image button to view related documents. Historical Provider LAB SURG PATH ORDERABLES Performing Organization Address City/State/ZIP Code Phon e Number [facility] documented in this encounter Visit Diagnoses Not on filedocumented in this encounter
--- OUTSIDE RECORDS SUMMARY | 2022-06-30 08:33 | XMS_ITS | Encounter Summary ---
:1960 Author Organization [facility] Address [address] [place] [address] Care Team Providers Name Role Phone Unavailable Primary Care Provider Unavailable Encounter Details Date Type Department Care Team Description 12/25/2013 Hospital Encounter HX [facility] Rell Fields M.D. [address], [place] [phone] (Wo rk) Social History [...] How often do you attend orthodoxy or mu-ism More than 4 time s [...] Sign Reading Time Taken Comments Blood Pressure 100/62 12/25/2013 3:37 PM CDT Pulse 72 12/25/2013 3:37 PM CDT Temperature - - Respiratory Rate - - Oxygen Saturation - - Inhaled Oxygen Concentration - - Weight 79 kg (174 lb 2.6 oz) 12/25/2013 3:37 PM CDT Height - - Body Mass Index 24.38 09/30/2013 7:49 AM TEACHER ADVISOR documented in this encounter Medications at Time of Discharge Medication Sig Dispensed Refills Start Date End Date calcium carbonate-vitamin Take 1 tablet by mouth 0 04/04/2012 D3 (CALCIUM 600 + D,3,) daily. 600 mg calcium- 200 unit capsule xjkftetojfbt-Xi-bxbx-mine Take 1 tablet by mouth 0 01/14/2010 rals tablet daily. UNABLE TO FIND daily. Raeganen 0 09/30/2013 documented as of this encounter Progress Notes Raven Barber M.D. - 12/25/2013 3:34 PM CDT [id number] CHIEF COMPLAINT/REASON FOR VISIT Follow up of pelvic ultrasound and endometrial biopsy. HISTORY OF PRESENT ILLNESS Amanda is a 53-year-old nulliparous female who presented in consultation for menorrhagia on 12/13/2013 as well as with some mood symptoms over the last few years. Amanda has had menstrual irregularities over the last several months going for 3 months at a time without a period and then having an extremely heavy period with passage of clots lasting 9 days. Following that she had frequent menses. The bleeding at times has been heavy enough to require her to change a super tampon and a pad every hour. Amanda was on oral contraceptive pills from age 40 to 51 for regulation of menses and she did well with that until she went off the oral contraceptive pills. However she also states that during that time she had mood symptoms including symptoms of depression. She also has a history of going to a hormone replacement clinic in [place] and going on a 1-year program with pellets inserted into her body. She did that after stopping the oral contraceptive pills. At the last visit I ordered a pelvic ultrasound to evaluate her uterus given her symptoms. Her uterus was normal in size and the endometrium measured 13mm. The myometrium was homogeneous. She had a 3.6 cm right ovarian cyst. Essentially, the ultrasound did not reveal an etiology for this bleeding. MEDICATIONS See EMR. ALLERGIES See EMR. SYSTEMS REVIEW GENERAL: No fevers, chills, fatigue, unintentional weight loss or weight gain. HEENT: No changes in vision or hearing, no sore throat or nasal congestion. CARDIOVASCULAR: No chest pain, irregular heartbeat or racing heart. RESPIRATORY: No shortness of breath, cough or wheeze. GASTROINTESTINAL: No nausea, vomiting, diarrhea, constipation or abdominal pain. GENITOURINARY: Positive for irregular vaginalbleeding, heavy periods, painful periods and abnormal vaginal discharge - see HPI. No pain or burning with urination, leaking urine, leaking stool or gas. SKIN: No rashes or skin lesions. BREASTS: No masses or lumps, no discharge from the nipples. NEURO: No difficulty with memory, numbness, tingling, falls. PSYCHE: Positive for anxiety, depression, and difficulty sleeping - see HPI. ENDOCRINE: Positive for cold intolerance. No heat intolerance, excessive thirst or hair loss. VITAL SIGNS See EMR. GENERAL: Well-nourished female in no acute distress. PELVIC EXAM: External genitalia with normal pubic hair distribution, the patient has a 1 x 1 cm fleshy colored lesion on the left inner groin that is slightly raised, no other lesions or abnormalities are noted, urethral meatus is normal in location and appearance, without masses. The vaginal mucosa is pink and moist with a small amount of thin clear discharge present in the posterior vaginal fornix,the cervix appears nulliparous and is without lesions or abnormalities. On bimanual examination the uterus is retroverted and normal in size, no adnexal masses or tenderness are noted. LOWER EXTREMITIES: Nontender, no edema. IMPRESSION/REPORT/PLAN Nzbxa-jme-djmd-old nulliparous female with irregular menses, menorrhagia and mood symptoms. 1. Perimenopausal symptoms: The patient has abnormal bleeding and mood symptoms as well as vasomotorsymptoms. Given the bleeding abnormalities endometrial biopsy was recommended. This was performed today without difficulty. See the procedure note. Pelvic ultrasound was essentially normal other than the ovarian cyst but did not reveal an etiology for the patient's abnormal bleeding. Given this history of hormone therapy I think ruling out hyperplasia or malignancy is important. Patient's hemoglobin was checked at the last visit and was normal. Patient's thyroid was last checked in September and it was within normal limits as well. If biopsy returns benign we could consider initiating oral contracept kenton pills for management of the bleeding, possibly for the mood symptoms and for the vasomotor symptoms. Also, hysteroscopy and endometrial ablation could be considered for the bleeding abnormalities. As far as the mood symptoms are concerned, I have discussed increasing exercise. Thirty minutes most days is recommended. Patient states that she has a history of a very active lifestyle but over the last year this has decreased significantly. We also discussed the option of therapy. We will discuss this further at the next visit. The patient is hesitant to proceed with any sort of medication to treather mood symptoms. 2. Right ovarian cyst: This is a simple likely follicular cyst. We will repeat ultrasound in 6 to 8 weeks to assess this cyst. The patient was counseled that usually cysts resolve over this time. 3. Followup: Patient will return in 2 weeks for followup of the biopsy result and for treatment planning. She will return for pelvic ultrasound in 5-1/2 weeks. If she has any questions or concerns prior to that time she should call the clinic. Raven Barber M.D./[employer]ar Electronically Signed By: RAVEN BARBER MD On: 01/04/2014 04:27 PM Source: [facility] MHSDOLBEYNONRADSYS Document Id: [id number] documented in this encounter Procedure Notes Raven Barber M.D. - 12/25/2013 12:00 AM CDT 2RPT INDICATIONS: A 53-year-old nulliparous female with irregular menses and menorrhagia. She also has a history of hormone therapy with pellets at an [facility], [place]. Given this history, I have recommended endometrial biopsy to rule out hyperplasia or malignancy. PROCEDURE: Patient was placed on the examination table in the dorsolithotomy position. A speculum was inserted into her vagina and the cervix visualized. The cervix was swabbed 3 times with Betadine. The endometrial biopsy Pipelle was advanced through the cervix to 9cm without difficulty to the uterine fundus. The suction was activated and the device rotated in a clockwise fashion and removed. A second pass was made in a similar fashion. An adequate sample was obtained. The speculum was then removedfrom the patient's vagina. The patient tolerated the procedure well. Raven Barber M.D./[facility] Electronically Signed By: RAVEN BARBRE MD On: 01/04/2014 04:27 PM Source: [facility] MHSDOLBEYNONRADSYS Document Id: [id number] documented in this encounter Miscellaneous Notes Miscellaneous - Raven Barber M.D. - 12/25/2013 4:30 PM CDT Ambulatory Patient Summary [address] [id number] Visit Information Name: AMANDA MARCELO [facility] Number: [id number] Visit Date: 12/25/2013 16:30:25 Attending Provider: RAVEN BARBER MD Primary Care Provider: FELIX SANTOS DIVISION MANAGER AMANDA MARCELO has been given the following [...] tablet) 1 Tablet(s), Oral, once a day verapamil (verapamil 180 mg/24 hours oral capsule, extended release) 1 cap, Oral, once a day for Reynaud's disease Stop Taking the Following Medications: Medication list as of 12-25-13 16:30 Attention: If you have any medications at home that are not on this list, DO NOT take them until youcontact your provider for clarification. Give a copy of your medication list to your primary care provider. Update your medication list any time medications or doses are changed and carry your medication list at all times in case of emergency. Additional Information: Source: [facility] POWERCHART Document Id: [id number] Miscellaneous - Raven Barber M.D. - 12/25/2013 4:30 PM CDT Ambulatory Discharge Medication List [address] [id number] Visit Information Name: FOZIA AMANDA ELLIS [facility] Number: [id number] Visit Date: 12/25/2013 16:30:23 Attending Provider: RAVEN BARBER MD Primary Care Provider: FELIX SANTOS [facility] AMANDA MARCELO RHONDA has been given the [...] tablet) 1 Tablet(s), Oral, once a day verapamil (verapamil 180 mg/24 hours oral capsule, extended release) 1 cap, Oral, once a day for Reynaud's disease Stop Taking the Following Medications: Medication list as of 12-25-13 16:30 Attention: If you have any medications at home that are not on this list, DO NOT take them until youcontact your provider for clarification. Give a copy of your medication list to your primary care provider. Update your medication list any time medications or doses are changed and carry your medication list at all times in case of emergency. 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 Intake/History Adult Ceramic Worker Intake/History Entered On: 12/25/2013 15:38 CDT Performed On: 12/25/2013 15:37 CDT by SANDER ROBB Intake Chief Complaint : ultrasound results and EMB Peripheral Pulse Rate : 72 /min Systolic Blood Pressure : 100 mmHg Diastolic Blood Pressure : 62 mmHg NIBP Mean : 75 mmHg BP Location : Left upper extremity Blood Pressure Cuff Size : Regular Actual Weight : 79.0 kg(Converted to: 174 lb 3 oz) Dosing Weight Clinic : 79 kg SANDER ROBB - 12/25/2013 15:37 CDT General Info Languages : Persian SANDER ROBB - 12/25/2013 15:37 CDT Subjective Pain Symptoms : No SANDER ROBB - 12/25/2013 15:37 CDT Dependent Habits Tobacco Use/Currently Using : No Smoking Status : Unknown if ever smoke SANDER ROBB - 12/25/2013 15:37 CDT Caffeine Use Grid Caffeine Use : Current Type : Soft drinks Frequency : Occasionally SANDER ROBB - 12/25/2013 15:37 CDT Recreational Drug Use Grid Drug Use : None SANDER ROBB - 12/25/2013 15:37 CDT [facility] Document Id: [id number] CDT!26 documented in this encounter Plan of Treatment Not on filedocumented as of this encounter Procedures Procedure Name Priority Date/Time Associated Diagnosis Comme nts SURGICAL PATHOLOGY Routine 12/25/2013 4:00 PM Res ults for this CDT procedure are i n the results section. documented in this encounter Results Pathology Anatpath Wet Tissue (12/25/2013 4:00 PM CDT) [facility] gist Method Time Signature HXSurg IV [id number] POWERCHART [facility] HXSurg IV See Comment POWERCHART [facility] Comment: RESULT: Kyung Stewart HXSurg IV [facility] See Comment POWERCHA RT Comment: [facility] [address] [place] [address] SLIDE DISPOSITION: HXSurg IV [facility] See Comment POWER CHART Comment: [id number] A1 A. ??Received in formalin labeled with t he patients name and and lab eled as endometrium are multiple oliavs-brown soft tissue fragments admixed with mucus, 2.8 x 2.5 x 0.3 cm in aggregate. The specimens are submitted en toto in cassette A1. Part A: ??Endometrium Biopsy 1 Endometrium XRSR Path [facility] See Comment POWER CHART Comment: Endometrium, biopsy: ??Polypoid fragment s of proliferative endometrium. Participated in interpretation: ??HECTOR Saini [phone]. [facility] See Comment POWER CHART Comment: RESULT: 12/30/2013 15:47 Interpreted by: Adiel Hopper M.D. Report electronically signed by Adiel Esquivel M.D. Transcribed by: [email or web address] 12/30/2013 15:39:10 Test Performed by: [facility] [address] [place] [address] Legal Manager: Mikael quinonez III, M.D. Specimen (Source) Anatomical Collection Method Collection Time Re ceived Time Location / / Volume Laterality Tissue 12/25/2013 4:00 PM CDT Raven Barber M.D. LAB SURG PATH ORDERABLES Performing Organization Address City/State/ZIP Code Phon e Number POWERCHART documented in this encounter Visit Diagnoses Not on filedocumented in this encounter
--- OUTSIDE RECORDS SUMMARY | 2022-06-30 08:33 | XMS_ITS | Encounter Summary ---
:1960 Author Organization [facility] Address [address] [place] [address] Care Team Providers Name Role Phone Unavailable Primary Care Provider Unavailable Encounter Details Date Type Department Care Team Description 02/24/2014 Hospital Encounter HX [facility] Rell Fields M.D. [address] [phone] (Wo rk) Social History Tobacco [...] or relatives? How often do you attend mormonism or jew More than 4 time s per year 02/02/2021 services? Do you belong to any clubs or organizations No 02/02/2021 such as mormonism groups, unions, fraternal or athletic groups, or [...] or slept in a [facility] (including now)? Sex Assigned at Date Recorded Not on file documented as of this encounter Last Filed Vital Signs Vital Sign Reading Time Taken Comments Blood Pressure 98/62 02/24/2014 11:03 AM CDT Pulse - - Temperature - - Respiratory [...] (OMEGA 3-6-9 FATTY mouth daily. ACIDS ORAL) wsxgbykawfoc-Lw-qomr-mine Take 1 tablet by mouth 0 01/14/2010 rals tablet daily. UNABLE TO FIND daily. Amberen 0 09/30/2013 documented as of this encounter Progress Notes Kina Barber M.D. - 02/24/2014 10:58 AM CDT OBGYN-SV CHIEF COMPLAINT/REASON FOR VISIT Postoperative check and followup with pathology results. HISTORY OF PRESENT ILLNESS Yamel is a 53-year-old, nulliparous female, who underwent hysteroscopy, D&C, and endometrial polypectomy and endometrial ablation on 01/28/2014 for menorrhagia and endometrial polyp. The pathology from the procedure returned showing complex hyperplasia without atypia in fragments of endometrial polyp, and in the background endometrium there was focal simple mucinous papillary proliferation (Nuccitype A lesion). Comment on this mucinous papillary proliferation within the pathology report states In addition to the fragments of proliferative endometrium, the sample contains rare tissue demonstrating a proliferation of mucinous glands with micropapillary architecture in small deric.) No cribrifor neha or complex structural changes are seen. Such lesions were termed by Suki et al (reference 1) as type A proliferative mucinous lesions. Due to low number of reported cases in the literature, the precise significance of such lesions is not clear. However, the little data suggests that such lesionsmay carry a very small risk of progression to carcinoma (in the range of 1% to 2%). Therefore, closesurveillance and consideration for interval repeat endometrial tissue sampling is advised. These results were discussed with the patient. The patient states that she has done well postprocedure thoughshe states that she did need to recover after the procedure as it took a lot out of her. She has also had discharge and states that this has decreased over the last couple of days. Otherwise, at this time, she is voiding, ambulating and tolerating a regular diet without difficulty, and she is having normal bowel movements. She also has a history of a 3.6 cm cyst on her right ovary that appeared simple. Ultrasound was repeated 7 days ago, and the right ovary contained a cyst that measured 1.5 x 1.6 x2 cm. Overall, Yamel is doing well at this time. MEDICATIONS See EMR. ALLERGIES See EMR. SYSTEMS [...] GENERAL: Well-nourished female, in no acute distress. HEENT: Head: Normocephalic, atraumatic. EENT: Vision and hearing grossly intact. CARDIOVASCULAR: Regular rate and rhythm, no murmurs, rubs, or gallops. CHEST: Clear to auscultation bilaterally, no wheezes or rales. ABDOMEN: Soft, nondistended, nontender, normoactive bowel sounds. PELVIC: External genitalia with normal pubic hair distribution, she has a 1 x 1 cm fleshy colored lesion on the left inner groin that is slightly raised, no other lesions or abnormalities are noted. The urethral meatus is normal in location and appearance, without masses. The vaginal mucosa is pink and moist with a small amount of thin, clear discharge present in the posterior vaginal fornix. The cervix appears nulliparous and is without lesions or abnormalities. On bimanual examination, the uterus is retroverted, nontender and normal in size, no adnexal masses or tenderness are noted. LOWER EXTREMITIES: Nontender, no edema. IMPRESSION/REPORT/PLAN A 53-year-old, nulliparous female, who is 3 weeks 6 days postoperative, status post hysteroscopy, D&C, endometrial polypectomy, and endometrial ablation who presents for postoperative check and followup of ultrasound today and has abnormal pathology noted. 1. Postoperative progress: The patient has made excellent postoperative progress and is doing well at this time. 2. Abnormal pathology: Pathology results are as noted in HPI. Given these results, I have offered tosend an eConsult to [facility] at [place] in [place]. The patient is in agreement with this. Once Ihave these results back, we will discuss the recommendations and move forward. At this time, I am leaning towards recommending hysterectomy given the difficulty following the endometrium postablation, but I will wait for recommendations from IMPLEMENTATION ANALYST Oncology to make further recommendations. 3. Ovarian cyst: Resolved. The small cyst noted 1 week ago does not need to be followed. 4. Followup: I will be in touch with the patient at [phone] once I receive the recommendations from the eConsult. The patient has given me permission to leave a message. ADMINISTRATIVE BILLING: Greater than 50% of this 30-minute visit was spent in counseling the patient. Kina Barber M.D./rui Electronically Signed By: KINA BARBER MD On: 04/29/2014 01:46 PM Source: [facility] MHSDOLBEYNONRADSYS Document Id: [id number] documented in this encounter Miscellaneous Notes Miscellaneous - Kina Barber M.D. - 03/07/2014 1:39 PM CDT Ambulatory Patient Summary [address] [id number] Visit Information Name: YAMEL MARCELO [facility] Number: [id number] Visit Date: 03/07/2014 13:39:51 Attending Provider: KINA BARBER MD Primary Care Provider: FELIX SANTOS CNP YAMEL MARCELO has been given the following list of medications: Your Medications It is important to take your medications as directed. Use a pill box or chart to help remind you to take your medications. Please let your doctor or nurse know if you have problems taking your medications. 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 - 03/07/2014 1:39 PM CDT Ambulatory Discharge Medication List [address] [id number] Visit Information Name: FOZIA YAMELOLIVA ELLIS [facility] Number: [id number] Visit Date: 03/07/2014 13:39:50 Attending Provider: KINA BARBER MD Primary Care Provider: FELIX SANTOS TIPPING MACHINE OPERATOR AUTOMATIC FOZIA YAMEL RHONDA has been given the following list of medications: Your Medications It is important to take your medications as directed. Use a pill box or chart to help remind you to take your medications. Please let your doctor or nurse know if you have problems taking your medications. 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 Intake/History Entered On: 02/24/2014 11:05 CDT Performed On: 02/24/2014 11:03 CDT by DALIA JURADO Intake Chief Complaint : 2 week post op Ambulatory Intake Additional Information : refulsed Systolic Blood Pressure : 98 mmHg Diastolic Blood Pressure : 62 mmHg NIBP Mean : 74 mmHg DALIA JURADO - 02/24/2014 11:03 CDT General Info Information Given By : Patient Languages : Turkmen DALIA JURADO - 02/24/2014 11:03 CDT Subjective Pain Symptoms : No DALIA JURADO - 02/24/2014 11:03 CDT Dependent Habits Tobacco Use/Currently Using : No Smoking Status : Never smoker DALIA JURADO - 02/24/2014 11:03 CDT Caffeine Use Grid Caffeine Use : Current Type : Soft drinks Frequency : Occasionally DALIA JURADO - 02/24/2014 11:03 CDT Recreational Drug Use Grid Drug Use : None DALIA JURADO - 02/24/2014 11:03 CDT [facility] Document Id: [id number] CDT!23 documented in this encounter Plan of Treatment Not on filedocumented as of this encounter Visit Diagnoses Not on filedocumented in this encounter
--- OUTSIDE RECORDS SUMMARY | 2022-06-30 08:33 | XMS_ITS | Encounter Summary ---
:1960 Author Organization [facility] Address [address] [place] [address] Care Team Providers Name Role Phone Unavailable Primary Care Provider Unavailable Encounter Details Date Type Department Care Team Description 04/17/2014 Hospital Encounter HX [facility] Rell Fields M.D. [address], [place] [phone] (Wo rk) Social History [...] How often do you attend congregation or jewish More than 4 time s [...] or slept in a fci (including now)? Sex Assigned at Date Recorded Not on file documented as of this encounter Last Filed Vital Signs Vital Sign Reading Time Taken Comments Blood Pressure 100/58 04/17/2014 4:16 PM CDT Pulse 66 04/17/2014 4:16 PM CDT Temperature - - Respiratory Rate - - Oxygen Saturation - - Inhaled Oxygen Concentration - - Weight - - Height 179 cm (5' 10.47) 04/17/2014 4:16 PM CDT Body Mass Index - - documented in this encounter Medications at Time of Discharge Medication Sig Dispensed Refills Start Date End Date calcium carbonate-vitamin Take 1 tablet by mouth 0 04/04/2012 D3 (CALCIUM 600 + D,3,) daily. 600 mg calcium- 200 unit capsule FSH/FLX/PRIM/CUR/BOR/OM3, Take 1 capsule by 0 05/2014 6,9 5 (OMEGA 3-6-9 FATTY mouth daily. ACIDS ORAL) cwksmllekurs-Gb-tlbr-mine Take 1 tablet by mouth 0 01/14/2010 rals tablet daily. UNABLE TO FIND daily. Amberen 0 09/30/2013 documented as of this encounter Progress Notes Kina Barber M.D. - 04/17/2014 3:53 PM CDT OBGYN-SV CHIEF COMPLAINT/REASON FOR VISIT Surgery planning. HISTORY OF PRESENT ILLNESS Yamel is a 54-year-old, nulliparous female, who underwent hysteroscopy, D and C, endometrial polypectomy, and endometrial ablation on 01/28/2014 for menorrhagia and endometrial polyp, and pathology returned showing complex hyperplasia without atypia in fragments of the endometrial polyp and in the background endometrium, there was focal, simple, mucinous papillary proliferation (nucci- type A lesion). A consult was obtained given these abnormalities and due to a history of ablation and lack of ability to follow the patient appropriately, hysterectomy is recommended. Yamel presents for hysterectomy planning today. We discussed that this is not urgent since we have recently evaluated her endometrium and does not need to be performed in the next several days. However, it should be performed in the near future. Yamel is thinking mid July since that would be a good time for her to be off of work, as well as a nice time of the year for her to recover. I think this is appropriate. MEDICATIONS See EMR. ALLERGIES See EMR. SYSTEMS [...] cold intolerance, excessive thirst or hair loss. PHYSICAL EXAMINATION VITAL SIGNS: See EMR. GENERAL: Well-nourished female, in no acute distress. IMPRESSION/REPORT/PLAN A 54-year-old, nulliparous female, who is planning a total laparoscopic hysterectomy in mid July due to a history of endometrial pathology abnormalities that were obtained on hysteroscopy D and C, endometrial polypectomy prior to endometrial ablation. 1. Abnormal uterine pathology: Due to the ablation that was performed, the patient will not be able to be followed appropriately for these abnormalities. Therefore, we will plan hysterectomy. Given hernulliparity and fairly normal sized uterus, we will plan total laparoscopic hysterectomy. This procedure was discussed with the patient today and the recovery expectations discussed. Given these expectations, the patient would like to proceed with surgery in mid July. 2. Followup: The patient will return at the end of June for preoperative planning. Kina Barber M.D./rui Electronically Signed By: KINA BARBER MD On: 04/29/2014 02:00 PM Modified by and Electronically Signed by: KINA BARBER MD On: 04/29/2014 02:00 PM Source: [facility] MHSDOLBEYNONRADSYS Document Id: [id number] documented in this encounter Miscellaneous Notes Miscellaneous - Kina Barber M.D. - 04/27/2014 8:16 PM CDT Ambulatory Patient Summary [place] [facility] [address] [place], [place] [phone] Visit Information Name: YAMEL MARCELO [facility] Number: [id number] Visit Date: 04/27/2014 20:16:08 Attending Provider: KINA BARBER MD; KINA BARBER MD Primary Care Provider: FELIX SANTOS SEATING CAPTAIN YAMEL MARCELO has been given the following [...] Electronically Signed By: KINA BARBER MD Signed On:27-APR-2014 20:16:01 Additional Information: Source: [facility] POWER[facility] Document Id: [id number] Miscellaneous - Kina Barber M.D. - 04/27/2014 8:16 PM CDT Ambulatory Discharge Medication List [address] [id number] Visit Information Name: YAMEL MARCELO [facility] Number: [id number] Visit Date: 04/27/2014 20:16:07 Attending Provider: KINA BARBER MD; KINA BARBER MD Primary Care Provider: FELIX SANTOS SEATING CAPTAIN YAMEL MARCELO has been given the following [...] Electronically Signed By: KINA BARBER MD Signed On:27-APR-2014 20:16:01 Additional Information: Source: [facility] POWER[facility] Document Id: [id number] Xenacellkareen - Batsheva Kuo R.N. - 04/17/2014 4:16 PM CDT Adult Demo Coordinator Intake/History Adult Demo Coordinator Intake/History Entered On: 04/17/2014 16:16 CDT Performed On: 04/17/2014 16:16 CDT by BATSHEVA ROBB Intake Chief Complaint : hysterectomy planning Peripheral Pulse Rate : 66 /min Systolic Blood Pressure : 100 mmHg Diastolic Blood Pressure : 58 mmHg NIBP Mean : 72 mmHg BP Location : Left upper extremity Blood Pressure Cuff Size : Regular Height : 179 cm(Converted to: 5 ft 10 inch(es), 70 inch(es)) BATSHEVA ROBB - 04/17/2014 16:16 CDT General Info Languages : Gibraltarian BATSHEVA ROBB - 04/17/2014 16:16 CDT Subjective Pain Symptoms : No BATSHEVA ROBB - 04/17/2014 16:16 CDT Dependent Habits Tobacco Use/Currently Using : No Smoking Status : Never smoker BATSHEVA ROBB - 04/17/2014 16:16 CDT Caffeine Use Grid Caffeine Use : Current Type : Soft drinks Frequency : Occasionally BATSHEVA ROBB - 04/17/2014 16:16 CDT Recreational Drug Use Grid Drug Use : None BATSHEVA ROBB - 04/17/2014 16:16 CDT Source: [email or web address] Document Id: [id number] CDT!25 documented in this encounter Plan of Treatment Not on filedocumented as of this encounter Visit Diagnoses Not on filedocumented in this encounter
--- OUTSIDE RECORDS SUMMARY | 2022-06-30 08:33 | XMS_ITS | Encounter Summary ---
:1960 Author Organization [facility] Address [address] [place] [address] Care Team Providers Name Role Phone Unavailable Primary Care Provider Unavailable Encounter Details Date Type Department Care Team Description 09/30/2013 Hospital Encounter HX [facility] MyrRula donovan, DIELECTRIC EMBOSSING MACHINE OPERATOR, C.N.P. [address] [place] [address] (Wo rk) Social History Tobacco [...] often do you attend jehovah's witness or oriental orthodox More than 4 time s per year [...] Sign Reading Time Taken Comments Blood Pressure 104/62 09/30/2013 7:49 AM PRODUCT LINE MANAGER Pulse 80 09/30/2013 7:49 AM PRODUCT LINE MANAGER Temperature - - Respiratory Rate 20 09/30/2013 7:49 AM PRODUCT LINE MANAGER Oxygen Saturation - - Inhaled Oxygen Concentration - - Weight 79 kg (174 lb 2.6 oz) 09/30/2013 7:49 AM PRODUCT LINE MANAGER Height 180 cm (5' 10.87) 09/30/2013 7:49 AM PRODUCT LINE MANAGER Body Mass Index 24.38 09/30/2013 7:49 AM PRODUCT LINE MANAGER documented in this encounter Medications at Time of Discharge Medication Sig Dispensed Refills Start Date End Date calcium carbonate-vitamin Take 1 tablet by mouth 0 04/04/2012 D3 (CALCIUM 600 + D,3,) daily. 600 mg calcium- 200 unit capsule buqxukbvvamp-Tf-sqqi-mine Take 1 tablet by mouth 0 01/14/2010 rals tablet daily. UNABLE TO FIND daily. Amberen 0 09/30/2013 documented as of this encounter H&P Notes Felix Santos, ASHIA, CKarolN.P. - 09/30/2013 7:35 AM CST [id number] CHIEF COMPLAINT/REASON FOR VISIT 1. Healthcare maintenance exam. 2. Hypercholesterolemia. 3. Raynaud's syndrome. 4. Menorrhagia. 5. Keratoses. HISTORY OF PRESENT ILLNESS Amanda is here for physical exam. She came in a few days ago for labs. CBC and electrolytes were all within normal limits . She does have elevated cholesterol with total cholesterol 247 and LDL 167. TSHwas normal. She has had an elevated cholesterol in the past. We did discuss options today. She is going to start atorvastatin 10 mg and we will have her come back in 2 months for fasting lipids. She has a history of Raynaud's symptoms. She takes verapamil 180 mg extended release daily in the winter. She needs a refill on that. She states she went 3 months with no period and then had an extremely heavy period with clots a few weeks ago. We talked about irregular periods during perimenopause being norm al. However, if she has another extremely heavy period I would have her see SUPERVISOR WINTER for a consultation and possible endometrial ablation. She has multiple keratoses on her back. She has had them examined by Dermatology approximately a year and a half ago when she lived in [place]. She can see Dr. Kellie John here for reevaluation. MEDICATIONS See depart summary from today. ALLERGIES None. SYSTEMS REVIEW Positive for that mentioned in the history present illness and noted in the past medical history in the EMR. All other systems reviewed and are negative. PAST MEDICAL/SURGICAL HISTORY Hypercholesterolemia. Menorrhagia. Raynaud's disease. Skin cancer left lower leg. Varicose veins. Keratosis on the back. PAST SURGICAL HISTORY Varicose vein stripping. Ovarian cystectomy. Colposcopy. Excision of skin cancer left lower leg. PREVENTIVE: Up-to-date. Mammogram will be done today. SOCIAL HISTORY She is . She has 6 stepchildren. 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 She does not smoke. Rare alcohol. FAMILY HISTORY See EMR. VITAL SIGNS See EMR. PHYSICAL EXAMINATION GENERAL: In general, the patient is a pleasant female appears her stated age. SKIN: Multiple seborrheic keratoses on back and chest. EYES: PERRLA. EOMs intact. Fundi sharp discs. [...] palpable mass, no hepatosplenomegaly. GENITALIA: Bartholin, urethra, [place]-Bacavi's, vagina and cervix are without lesion. Bimanual examination reveals uterus is midline, mobile, nontender. No adnexal masses. SPINE: Normal range of motion. No CVA tenderness. JOINTS: Normal range of motion. EXTREMITIES: Warm, dry, no cyanosis or peripheral edema. MENTAL: Alert and oriented times three. NEURO: Deep tendon reflexes are +2 and symmetrical. IMPRESSION/REPORT/PLAN 1. Healthcare maintenance exam. Encouraged to continue working on healthy diet and regular exercise program. Mammogram was done today; she will be mailed results. She should return for physical exam and mammogram in 1 year. 2. Hypercholesterolemia. Starting Atorvastatin 10 mg 1 daily. Recheck fasting lipids in 2 months. 3. Raynaud's syndrome. Refill on verapamil 180 mg extended release 1 daily in the winter. 4. Menorrhagia. She is going to wait another month and see how period is. If it is extremely heavy we will have her do a consult with SUPERVISOR WINTER. 5. Seborrheic keratoses on back with history of skin cancer on leg. I am going to have her see Dr. John for skin evaluation. Felix Santos CNP/danika Electronically Signed By: FELIX SANTOS CNP On: 10/01/2013 08:58 AM Source: [facility] MHSDOLBEYNONRADSYS Document Id: [id number] UCT LINE MANAGER documented in this encounter Miscellaneous Notes Miscellaneous - Felix Santos APRN, C.N.P. - 09/30/2013 8:08 AM CST Ambulatory Patient Summary [address] [id number] Visit Information Name: AMANDA MARCELO [facility] Number: [id number] Current Date: 09/30/2013 08:08:04 Physicians Attending Provider: FELIX SANTOS CNP Primary [...] Tablet(s), Oral, once a day (at bedtime) New Routed to [facility] , calcium-vitamin D (Calcium 600+D) 1 Tablet(s), Oral, three times a day magnesium citrate (magnesium citrate) 300 Milliliter, Oral, once Misc Prescription (Misc Prescription) amberen, once a day multivitamin (multivitamin) Oral, once a day multivitamin (Vitamin B Complex oral tablet) 1 Tablet(s), Oral, once a day verapamil (verapamil 180 mg/24 hours oral capsule, extended release) 1 cap, Oral, once a day for Reynaud's disease Routed to [facility] , Stop Taking the Following Medications: Medication list as of 09-30-13 08:08 Attention: If you have any medications at home that are not on this list, DO NOT take them until youcontact your provider for clarification. Give a copy of your medication list to your primary care provider. Update your medication list any time medications or doses are changed and carry your medication list at all times in case of emergency. Your Allergies & Intolerances Substance Reaction Symptoms Category Comments No Known Allergies Drug Your Problem List Problem Status Onset Comments Raynaud's disease Active Hypercholesterolemia Active 03/23/2010 Varicose veins Active Menorrhagia Active Skin cancer Active 01/28/2010 06/11/10 left lower leg Your Upcoming Appointments Date Time Location Reason Provider 09/30/2013 08:30 [facility] Attention: Contact your local Clinic if further appointment detail needed. Your Goals/Additional instructions: Source: [facility] POWERCHART Document Id: [id number] UCT LINE MANAGER Miscellaneous - Felix Santos APRN, C.N.P. - 09/30/2013 8:08 AM CST Ambulatory Depart Summary [address] [id number] Visit Information Name: AMANDA MARCELO [facility] Number: [id number] Visit Date: 09/30/2013 08:07:31 Attending Provider: FELIX SANTOS CNP Primary Care [...] Tablet(s), Oral, once a day (at bedtime) New Routed to [facility] [address] [place], [place] [phone] calcium-vitamin D (Calcium 600+D) 1 Tablet(s), Oral, three times a day magnesium citrate (magnesium citrate) 300 Milliliter, Oral, once Misc Prescription (Misc Prescription) amberen, once a day multivitamin (multivitamin) Oral, once a day multivitamin (Vitamin B Complex oral tablet) 1 Tablet(s), Oral, once a day verapamil (verapamil 180 mg/24 hours oral capsule, extended release) 1 cap, Oral, once a day for Reynaud's disease Routed to [facility] , Stop Taking the Following Medications: Medication list as of 09-30-13 08:08 Attention: If you have any medications at home that are not on this list, DO NOT take them until youcontact your provider for clarification. Give a copy of your medication list to your primary care provider. Update your medication list any time medications or doses are changed and carry your medication list at all times in case of emergency. Additional Information: Source: [facility] POWERCHART Document Id: [id number] UCT LINE MANAGER Miscellaneous - Sixto Bentley L.PKarolN. - 09/30/2013 7:51 AM CST Health Assessment Health Assessment Entered On: 09/30/2013 7:51 PRODUCT LINE MANAGER Performed On: 09/30/2013 7:51 PRODUCT LINE MANAGER by SIXTO BENTLEY LPN Health Assessment Complete Health Assessment Complete or Modified : Annual Health Assessment Annual Health Assessment Completed : Yes SIXTO BENTLEY LPN - 09/30/2013 7:51 PRODUCT LINE MANAGER Nutrition Nutrition Risk Factors by History Adult : None SIXTO BENTLEY LPN - 09/30/2013 7:51 PRODUCT LINE MANAGER Functional Current Daily Living Assistance : None SIXTO BENTLEY LPN - 09/30/2013 7:51 PRODUCT LINE MANAGER Dependent Habits Tobacco Use/Currently Using : No Smoking Status : Never smoker FRIEDA BENTLEYRUDOLPH BETH LPN - 09/30/2013 7:51 PRODUCT LINE MANAGER Caffeine Use Grid Caffeine Use : Current Type : Soft drinks Frequency : Occasionally SIXTO BENTLEY IGNACIA KAUR - 09/30/2013 7:51 PRODUCT LINE MANAGER Recreational Drug Use Grid Drug Use : None SIXTO BENTLEY IGNACIA KAUR - 09/30/2013 7:51 PRODUCT LINE MANAGER Psychosocial Domestic Abuse Concerns : None FRIEDA BENTELYRUDOLPH BETH LPN - 09/30/2013 7:51 PRODUCT LINE MANAGER Advance Directive Advanced Directives : No SIXTO BENTLEY IGNACIA KAUR - 09/30/2013 7:51 PRODUCT LINE MANAGER Educ Needs Learning Style Preference Adult Grid Patient : Verbal explanation, Printed materials Family : Verbal explanation, Printed materials DEMIANFRIEDASIXTORUDOLPH BETH LPN - 09/30/2013 7:51 PRODUCT LINE MANAGER Source: [facility] POWERCHART Document Id: [id number] PRODUCT LINE MANAGER!27 UCT LINE MANAGER Miscellaneous - Sixto Bentley L.PKarolNKarol - 09/30/2013 7:49 AM CST Adult Commercial Maintenance Technician Intake/History Adult Commercial Maintenance Technician Intake/History Entered On: 09/30/2013 7:51 PRODUCT LINE MANAGER Performed On: 09/30/2013 7:49 PRODUCT LINE MANAGER by SIXTO BENTLEY LPN Intake Chief Complaint : annual exam Temperature Core : 37 DegC(Converted to: 98.6 DegF) Peripheral Pulse Rate : 80 /min Respiratory Rate : 20 /min Heart Rhythm : Regular Systolic Blood Pressure : 104 mmHg Diastolic Blood Pressure : 62 mmHg NIBP Mean : 76 mmHg BP Location : Left upper extremity Blood Pressure Cuff Size : Large Height : 180 cm(Converted to: 5 ft 11 inch(es), 70.87 inch(es)) Actual Weight : 79 kg(Converted to: 174 lb 3 oz) Weight Source : Standing scale Dosing Weight Clinic : 79 kg Clinic BSA : 1.99 Body Mass Index : 24.38 kg/m2 SIXTO BENTLEY LPN - 09/30/2013 7:49 PRODUCT LINE MANAGER General Info Information Given By : Patient Languages : Maltese SIXTO BENTLEY MODERN LANGUAGES PROFESSOR - 09/30/2013 7:49 PRODUCT LINE MANAGER Subjective Pain Symptoms : No SIXTO BENTLEY MODERN LANGUAGES PROFESSOR - 09/30/2013 7:49 PRODUCT LINE MANAGER Dependent Habits Tobacco Use/Currently Using : No Smoking Status : Never smoker Alcohol Use : Yes SIXTO BENTLEY MODERN LANGUAGES PROFESSOR - 09/30/2013 7:49 PRODUCT LINE MANAGER Caffeine Use Grid Caffeine Use : Current Type : Soft drinks Frequency : Occasionally SIXTO BENTLEY MODERN LANGUAGES PROFESSOR - 09/30/2013 7:49 PRODUCT LINE MANAGER Recreational Drug Use Grid Drug Use : None SIXTO BENTLEY MODERN LANGUAGES PROFESSOR - 09/30/2013 7:49 PRODUCT LINE MANAGER [facility] Document Id: [id number] PRODUCT LINE MANAGER!35 UCT LINE MANAGER documented in this encounter Plan of Treatment Not on filedocumented as of this encounter Visit Diagnoses Not on filedocumented in this encounter
--- OUTSIDE RECORDS SUMMARY | 2022-06-30 08:33 | XMS_ITS | Encounter Summary ---
:1960 Author Organization [facility] Address [address] [place] [address] Care Team Providers Name Role Phone Unavailable Primary Care Provider Unavailable Encounter Details Date Type Department Care Team Description 07/29/2014 Hospital Encounter HX NO MAPPING David Khan Jr., M.D. [address] [place], [place] [phone] (Wo rk) Social History [...] or relatives? How often do you attend oriental orthodox or presybeterian More than 4 time s per year 02/02/2021 services? Do you belong to any clubs or organizations No 02/02/2021 such as oriental orthodox groups, unions, fraternal or athletic groups, or [...] (OMEGA 3-6-9 FATTY mouth daily. ACIDS ORAL) fbkhoeehrtas-Ug-rukg-mine Take 1 tablet by mouth 0 01/14/2010 rals tablet daily. UNABLE TO FIND daily. Amberen 0 09/30/2013 documented as of this encounter Plan of Treatment Not on filedocumented as of this encounter Visit Diagnoses Not on filedocumented in this encounter
--- OUTSIDE RECORDS SUMMARY | 2022-06-30 08:33 | XMS_ITS | Encounter Summary ---
:1960 Author Organization [facility] Address [address] [place] [address] Care Team Providers Name Role Phone Unavailable Primary Care Provider Unavailable Encounter Details Date Type Department Care Team Description 07/07/2014 Hospital Encounter HX [facility] Rell Fields M.D. [address], [place] [phone] (Wo rk) Social History [...] How often do you attend synagogue or anabaptism More than 4 time s [...] Reading Time Taken Comments Blood Pressure 108/60 07/07/2014 4:02 PM CDT Pulse 78 07/07/2014 4:02 PM CDT Temperature - - Respiratory Rate 16 07/07/2014 4:02 PM CDT Oxygen Saturation - - Inhaled Oxygen Concentration - - Weight 85.7 kg (188 lb 15 oz) 07/07/2014 4:02 PM CDT Height 179 cm (5' 10.47) 07/07/2014 4:02 PM CDT Body Mass Index 26.75 07/07/2014 4:02 PM CDT documented in this encounter Medications at Time of Discharge Medication Sig Dispensed Refills Start Date End Date calcium carbonate-vitamin Take 1 tablet by mouth 0 04/04/2012 D3 (CALCIUM 600 + D,3,) daily. 600 mg calcium- 200 unit capsule FSH/FLX/PRIM/CUR/BOR/OM3, Take 1 capsule by 0 05/2014 6,9 5 (OMEGA 3-6-9 FATTY mouth daily. ACIDS ORAL) jiswytwoldlg-Kn-sopg-mine Take 1 tablet by mouth 0 01/14/2010 rals tablet daily. UNABLE TO FIND daily. Amberen 0 09/30/2013 documented as of this encounter Progress Notes Kina Barber M.D. - 07/07/2014 3:58 PM CDT [id number] CHIEF COMPLAINT/REASON FOR VISIT Preop planning. 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 Yamel did not want to proceed with hysterectomy in the spring or summer, and therefore returns today for hysterectomy planning. She would like her surgery on July 29. MEDICATIONS See EMR. ALLERGIES See EMR. SYSTEMS [...] loss. VITAL SIGNS See EMR. PHYSICAL EXAMINATION Well-nourished female, no acute distress. IMPRESSION/REPORT/PLAN A 54-year-old, nulliparous female with history of complex endometrial hyperplasia and a focal simplemucinous papillary proliferation, with a history of endometrial ablation, therefore we cannot followher endometrial stripe and hysterectomy is recommended. 1. Abnormal uterine pathology. The patient desires hysterectomy on 07/29/2014. The risks, benefits and alternatives of the procedure were discussed with her and informed consent was obtained. Felix Santos CNP, will perform her preoperative history and physical. Will plan for surgery on 07/29/2014. 2. Followup. With Felix Santos CNP, in the near future and on July 29 for hysterectomy. Kina Barber M.D./rui Electronically Signed By: KIAN BARBER MD On: 07/08/2014 12:23 PM Source: [facility] MHSDOLBEYNONRADSYS Document Id: [id number] documented in this encounter Miscellaneous Notes Miscellaneous - Kina Barber M.D. - 08/01/2014 2:14 PM CDT Results Notification Document Contains Addenda Addendum by GRISELDA FISHMAN on 01 August 2014 15:48:57 CDT Patient notified. From: KINA BARBER MD Sent: 08/01/2014 14:14:14 CDT ! Show up: 08/01/2014 14:14:14 CDT Subject: Results Notification Actions: Note to Nurse Reminder Comments: Please call Yamel and let her know that the path from her hysterectomy returned completely benign. Results: Date Result Type Result Name 07/31/2014 9:22 Document - mdoc Surgical Pathology Report Source: [facility] POWERCHART Document Id: [id number] Electronically signed by Conversion, [facility] Sales Receptionist [id number] at 03/14/2017 7:23 PM CDT Miscellaneous - Kina Barber M.D. - 07/07/2014 4:34 PM CDT Ambulatory Patient Summary [address] [id number] Visit Information Name: YAMEL MARCELO [facility] Number: [id number] Visit Date: 07/07/2014 16:34:47 Attending Provider: KINA BARBER MD Primary Care Provider: FELIX SANTOS [employer] OPERATOR YAMEL MARCELO has been given the following [...] tablet) 1 Tablet(s), Oral, once a day ofloxacin otic (Floxin Otic 0.3% otic solution) 5 Drops, Ear(Right), two times a day omega-3 polyunsaturated fatty acids (Fish Oil 1000 mg oral capsule) 1 cap, Oral, once a day verapamil (verapamil 180 mg/24 hours oral capsule, extended release) 1 cap, Oral, once a day for Reynaud's disease Stop Taking the Following Medications: Medication list as of 07-07-14 16:34 Attention: If you have any medications at [...] Electronically Signed By: KINA BARBER MD Signed On:07-JUL-2014 16:34:42 Additional Information: Source: [facility] POWERCHART Document Id: [id number] Miscellaneous - Kina Barber M.D. - 07/07/2014 4:34 PM CDT Ambulatory Discharge Medication List [address] [id number] Visit Information Name: YAMEL MARCELO [facility] Number: [id number] Visit Date: 07/07/2014 16:34:45 Attending Provider: KINA BARBER MD Primary Care Provider: FELIX SANTOS [facility] YAMEL MARCELO has been given the [...] tablet) 1 Tablet(s), Oral, once a day ofloxacin otic (Floxin Otic 0.3% otic solution) 5 Drops, Ear(Right), two times a day omega-3 polyunsaturated fatty acids (Fish Oil 1000 mg oral capsule) 1 cap, Oral, once a day verapamil (verapamil 180 mg/24 hours oral capsule, extended release) 1 cap, Oral, once a day for Reynaud's disease Stop Taking the Following Medications: Medication list as of 07-07-14 16:34 Attention: If you have any medications at [...] Electronically Signed By: KINA BARBER MD Signed On:07-JUL-2014 16:34:42 Additional Information: Source: [facility] POWERCHART Document Id: [id number] Miscellaneous - Griselda Fishman, L.P.N. - 07/07/2014 4:02 PM CDT Adult Cheese Packer Intake/History Document Has Been Updated Adult Cheese Packer Intake/History Entered On: 07/07/2014 16:03 CDT Performed On: 07/07/2014 16:02 CDT by GRISELDA FISHMAN Intake Chief Complaint : TLH planning Peripheral Pulse Rate : 78 /min Respiratory Rate : 16 /min Heart Rhythm : Regular Systolic Blood Pressure : 108 mmHg Diastolic Blood Pressure : 60 mmHg NIBP Mean : 76 mmHg BP Location : Right upper extremity Blood Pressure Cuff Size : Regular Height : 179 cm(Converted to: 5 ft 10 inch(es), 70 inch(es)) Actual Weight : 85.7 kg(Converted to: 188 lb 15 oz) Weight Source : Standing scale Dosing Weight Clinic : 85.7 kg Clinic BSA : 2.06 Body Mass Index : 26.75 kg/m2 GRISELDA FISHMAN - 07/07/2014 16:02 CDT General Info Languages : Turkish Is Patient Female and 13-50 no hysterectomy : No GRISELDA FISHMAN - 07/07/2014 16:02 CDT Subjective Pain Symptoms : No GRISELDA FISHMAN - 07/07/2014 16:02 CDT Dependent Habits Tobacco Use/Currently Using : No Exposure to Tobacco Smoke : Other: Never Smoking Status : Never smoker GRISELDA FISHMAN - 07/07/2014 16:02 CDT Caffeine Use Grid Caffeine Use : Current Type : Soft drinks Frequency : Occasionally GRISELDA FISHMAN - 07/07/2014 16:02 CDT Recreational Drug Use Grid Drug Use : None GRISELDA FISHMAN - 07/07/2014 16:02 CDT Allergy (As Of: 07/07/2014 16:03:42 CDT) Allergies (Active) NKA Estimated Onset Date: Unspecified ; Created By: JAMIE LOMAS LPN; Reaction Status: Active ; Category: Drug ; Substance: NKA ; Type: Allergy ; Updated By: JAMIE LOMAS LPN; Source: Patient ; Reviewed Date: 07/07/2014 16:01 CDT Source: [employer] Document Id: [id number] documented in this encounter Plan of Treatment Not on filedocumented as of this encounter Procedures Procedure Name Priority Date/Time Associated Diagnosis Comme [facility] SURGICAL PATHOLOGY Routine 07/29/2014 12:00 AM Re sults for this CDT procedure are i n the results section. documented in this encounter Results Pathology Surgical Pathology (07/29/2014 12:00 AM CDT) Specimen (Source) Anatomical Location Collection Method / Collectio n Time Received Time / Laterality Volume 07/29/2014 Narrative [facility] - 08/01/20 14 2:14 PM CDT PATIENT IMAGES Choose the Image button to view related documents. Historical Provider LAB SURG PATH ORDERABLES Performing Organization Address City/State/ZIP Code Phon e Number [facility] documented in this encounter Visit Diagnoses Not on filedocumented in this encounter
--- OUTSIDE RECORDS SUMMARY | 2022-06-30 08:33 | XMS_ITS | Encounter Summary ---
:1960 Author Organization [facility] Address [address] [place] [address] Care Team Providers Name Role Phone Unavailable Primary Care Provider Unavailable Encounter Details Date Type Department Care Team Description 09/30/2013 Hospital Encounter HX [facility] Allyson Trinh, INSULATION HELPER, C.N.P. [address] [place], [place] [phone] (Wo rk) Social History [...] or relatives? How often do you attend restorationism or latter-day More than 4 time s per year 02/02/2021 services? Do you belong to any clubs or organizations No 02/02/2021 such as restorationism groups, unions, fraternal or athletic groups, or [...] daily. 600 mg calcium- 200 unit capsule wbekfwgjqzmp-Dr-gdgk-mine Take 1 tablet by mouth 0 01/14/2010 rals tablet daily. UNABLE TO FIND daily. Amberen 0 09/30/2013 documented as of this encounter Plan of Treatment Not on filedocumented as of this encounter Procedures Procedure Name Priority Date/Time Associated Diagnosis Comme nts BI BREAST SCREENING Routine 09/30/2013 8:56 AM Re sults for this BILATERAL AUTO DAMAGE APPRAISER procedure are i n the results section. documented in this encounter Results BI Breast Screening Bilateral (09/30/2013 8:56 AM AUTO DAMAGE APPRAISER) Anatomical Region Laterality Modality Breast Bilateral Mammography Specimen (Source) Anatomical Collection Method Collection Time Re ceived Time Location / / Volume Laterality 09/30/2013 8:56 AM AUTO DAMAGE APPRAISER Impressions 09/30/2013 10:13 AM AUTO DAMAGE APPRAISER BI-RADS 1. ??NEGATIVE. RECOMMENDATION: Routine yearly mammogram . BREAST MAMMOGRAPHY - GENERAL OBSERVATION S: ??The false negative rate for mammography is 15-20%. ??It cannot b e used, therefore, to replace the regular physical examination. ??A no rmal or noncontributory mammogram report also should not deter t he aggressive further workup of any suspected palpable masses. Narrative 09/30/2013 10:13 AM AUTO DAMAGE APPRAISER Bilateral digital screening Mammography with computer-aided detection, CAD. COMPARISON: 04/04/2012. HISTORY: 53 -year-old female with no brenda ast complaints or breast problems on today's screening mammogram. FINDINGS: Tissue density is extremely de nse. There has been no interval change. Procedure Note Alvaro Arevalo M.D. / Provider, Daniella harris M.D. - 03/03/2017 Bilateral digital screening Mammography with computer-aided detection, CAD. COMPARISON: 04/04/2012. HISTORY: 53 -year-old female with no brenda ast complaints or breast problems on today's screening mammogram. FINDINGS: Tissue density is extremely de nse. There has been no interval change. IMPRESSION: BI-RADS 1. NEGATIVE. RECOMMENDATION: Routine yearly mammogram . BREAST MAMMOGRAPHY - GENERAL OBSERVATION S: The false negative rate for mammography is 15-20%. It cannot be used, therefore, to replace the regular physical examination. A norm al or noncontributory mammogram report also should not deter t he aggressive further workup of any suspected palpable masses. Geovanna L Corey RKarolT.(R), R.TKarol(R)(M) [facility] documented in this encounter Visit Diagnoses Not on filedocumented in this encounter
--- OUTSIDE RECORDS SUMMARY | 2022-06-30 08:33 | XMS_ITS | Encounter Summary ---
:1960 Author Organization [facility] Address [address] [place] [address] Care Team Providers Name Role Phone Unavailable Primary Care Provider Unavailable Encounter Details Date Type Department Care Team Description 05/27/2014 Hospital Encounter HX [facility] MyrRula donovan, FUR PLUCKER, C.N.P. [address] [place] [address] (Wo rk) Social History Tobacco [...] How often do you attend mormon or methodist More than 4 time s per year [...] Sign Reading Time Taken Comments Blood Pressure 118/68 05/27/2014 4:28 PM CDT Pulse 64 05/27/2014 4:28 PM CDT Temperature - - Respiratory Rate 16 05/27/2014 4:28 PM CDT Oxygen Saturation - - Inhaled Oxygen Concentration - - Weight 85.7 kg (188 lb 15 oz) 05/27/2014 4:28 PM CDT Height 179 cm (5' 10.47) 05/27/2014 4:28 PM CDT Body Mass Index 26.75 05/27/2014 4:28 PM CDT documented in this encounter Medications at Time of Discharge Medication Sig Dispensed Refills Start Date End Date calcium carbonate-vitamin Take 1 tablet by mouth 0 04/04/2012 D3 (CALCIUM 600 + D,3,) daily. 600 mg calcium- 200 unit capsule FSH/FLX/PRIM/CUR/BOR/OM3, Take 1 capsule by 0 05/2014 6,9 5 (OMEGA 3-6-9 FATTY mouth daily. ACIDS ORAL) ujgefziislmr-Ur-izuf-mine Take 1 tablet by mouth 0 01/14/2010 rals tablet daily. UNABLE TO FIND daily. Amberen 0 09/30/2013 documented as of this encounter Progress Notes Felix Santos, ASHIA, C.N.P. - 05/27/2014 4:18 PM CDT [id number] CHIEF COMPLAINT/REASON FOR VISIT Right ear drainage. HISTORY OF PRESENT ILLNESS Yamel states she wears ear plugs to bed. Yesterday when she woke up, she had blood in her ear canal.She states it took several Q-tips to remove the blood. She now has some discomfort in the right ear and down into her neck. No fever. No other upper respiratory symptoms. MEDICATIONS See depart summary from today. ALLERGIES None. SYSTEMS REVIEW Positive for that mentioned in the history of present illness and noted in the past medical history in the EMR. All other systems were reviewed and were negative. PREVENTIVE Up to date. VITAL SIGNS See EMR. PHYSICAL EXAMINATION GENERAL: Well-developed, well-nourished female in no acute distress. SKIN: Warm and dry. ENT: Left TM clear. Right ear canal, no evidence of blood. Serous fluid in the middle ear. Nares congested with clear mucous. Throat clear. NECK: Supple. No lymphadenopathy. HEART: Regular rate and rhythm. LUNGS: Clear to auscultation. IMPRESSION/REPORT/PLAN Right otitis externa. Floxin Otic 5 drops to right ear 2 times daily for 7 to 10 days, and recheck if symptoms do not improve. Felix Santos CNP/rui Electronically Signed By: FELIX SANTOS CNP On: 05/28/2014 07:51 AM Source: [facility] [id number] Document Id: [id number] documented in this encounter Nursing Notes Felix Santos APRN C.N.P. - 05/27/2014 4:36 PM CDT Ambulatory Patient Education The following Patient Education Materials have been given to the patient: Patient Education Materials: Ambulatory EXTERNAL EAR INFECTION (Adult) Ambulatory External Ear Infection [Adult] This is an infection in the ear canal due to an overgrowth of bacteria or fungus. This often occurs a few days after water gets trapped in the ear canal (swimming or bathing). It may also occur after cleaning too deeply in the ear canal with a cotton swab or other object. Sometimes hair care products get into the ear canal and cause this problem. There may be itching, redness, drainage, or swelling of the ear canal and temporary loss of hearing. Home Care: ?? Do not try to clean the ear canal. That could push pus and bacteria deeper into the canal. ?? Use the drops prescribed to reduce swelling and fight the infection. If an EAR WICK was placed inthe ear canal, apply drops right onto the end of the wick. The wick will draw the medicine into the ear canal even if it is swollen closed. ?? Do not allow water to get into your ear when bathing. No swimming during this time. ?? A cotton ball may be loosely placed in the outer ear to absorb any drainage. ?? You may use acetaminophen (Tylenol) or ibuprofen (Motrin, Advil) to control pain, unless another medicine was prescribed. [NOTE: If you have chronic liver or kidney disease or ever had a stomach ulcer or GI bleeding, talk with your doctor before using these medicines.] Preventing Future Infections: You can usually avoid this problem by using an eardrop that removes the water from your ear canal when you feel there is water trapped there. You can get these drops over the counter (Swim Ear, Aqua Ear and other brands). Follow Up with your doctor or this facility in one week or as instructed by our staff. Get Prompt Medical Attention if any of the following occur: ?? Ear pain becomes worse or does not begin to improve after 3 days of treatment ?? Redness or swelling of the outer ear occurs or gets worse ?? Headache, painful or stiff neck, ?? Feeling drowsy or confused ?? Fever of 100.4??F (38??C) or higher, or as directed by your healthcare provider ?? Seizure ?? [phone] [facility], [address] [place] [address], [place] [address]. All rights reserved. This information is not intended as a substitute for professional medical care. Always follow your healthcare professional's instructions. This document has images extracted. Please consider using [employer] for all your patient education needs. Source: [facility] POWERCHART Document Id: [id number] documented in this encounter Miscellaneous Notes Miscellaneous - Felix Santos APRN, C.N.P. - 05/27/2014 4:36 PM CDT Ambulatory Patient Summary [address] [id number] Visit Information Name: YAMEL MARCELO [facility] Number: [id number] Current Date: 05/27/2014 16:36:48 Physicians Attending Provider: FELIX SANTOS CNP Primary [...] 5 Drops, Ear(Right), two times a day New Routed to [facility] [address] [place], [place] [id number] omega-3 polyunsaturated fatty acids (Fish Oil 1000 mg oral capsule) 1 cap, Oral, once a day *verapamil (verapamil 180 mg/24 hours oral capsule, extended release) 1 cap, Oral, once a day for Reynaud's disease * You have let us know that you are not taking this medication as listed. Please talk with your primary care provider or the health care provider who prescribed the medication as soon as possible. Stop Taking the Following Medications: Medication list as of 05-27-14 16:36 Attention: If you have any medications at [...] Electronically Signed By: FELIX SANTOS CNP Signed On:27-MAY-2014 16:35:47 Your Allergies & Intolerances Substance Reaction Symptoms [...] NOS Active 04/24/2014 04/28/[address] Your Upcoming Appointments Date Time Location Reason Provider 07/18/2014 16:00 [facility] [employer] [facility] planning Raven Freeman MD Attention: Contact your local Clinic if further appointment detail needed. External Ear Infection [Adult] This is an infection in the ear canal due to an overgrowth of bacteria or fungus. This often occurs a few days after water gets trapped in the ear canal (swimming or bathing). It may also occur after cleaning too deeply in the ear canal with a cotton swab or other object. Sometimes hair care products get into the ear canal and cause this problem. There may be itching, redness, drainage, or swelling of the ear canal and temporary loss of hearing. Home Care: ?? Do not try to clean the ear canal. That could push pus and bacteria deeper into the canal. ?? Use the drops prescribed to reduce swelling and fight the infection. If an EAR WICK was placed inthe ear canal, apply drops right onto the end of the wick. The wick will draw the medicine into the ear canal even if it is swollen closed. ?? Do not allow water to get into your ear when bathing. No swimming during this time. ?? A cotton ball may be loosely placed in the outer ear to absorb any drainage. ?? You may use acetaminophen (Tylenol) or ibuprofen (Motrin, Advil) to control pain, unless another medicine was prescribed. [NOTE: If you have chronic liver or kidney disease or ever had a stomach ulcer or GI bleeding, talk with your doctor before using these medicines.] Preventing Future Infections: You can usually avoid this problem by using an eardrop that removes the water from your ear canal when you feel there is water trapped there. You can get these drops over the counter (Swim Ear, Aqua Ear and other brands). Follow Up with your doctor or this facility in one week or as instructed by our staff. Get Prompt Medical Attention if any of the following occur: ?? Ear pain becomes worse or does not begin to improve after 3 days of treatment ?? Redness or swelling of the outer ear occurs or gets worse ?? Headache, painful or stiff neck, ?? Feeling drowsy or confused ?? Fever of 100.4?F (38?C) or higher, or as directed by your healthcare provider ?? Seizure ?? [phone] [facility], [address] [place] [address], [place] [address]. All rights reserved. This information is not intended as a substitute for professional medical care. Always follow your healthcare professional's instructions. Your Goals/Additional instructions: This document has images extracted. Please consider using [employer] for all your patient education needs. Source: [facility] POWERCHART Document Id: [id number] Miscellaneous - Felix Santos APRN, C.N.P. - 05/27/2014 4:36 PM CDT Ambulatory Discharge Medication List [address] [id number] Visit Information Name: FOZIAYAMELN [facility] Number: [id number] Visit Date: 05/27/2014 16:36:46 Attending Provider: FELIX SANTOS CNP Primary Care [...] 5 Drops, Ear(Right), two times a day New Routed to [facility] [address] [place], [place] [phone] omega-3 polyunsaturated fatty acids (Fish Oil 1000 mg oral capsule) 1 cap, Oral, once a day *verapamil (verapamil 180 mg/24 hours oral capsule, extended release) 1 cap, Oral, once a day for Reynaud's disease * You have let us know that you are not taking this medication as listed. Please talk with your primary care provider or the health care provider who prescribed the medication as soon as possible. Stop Taking the Following Medications: Medication list as of 05-27-14 16:36 Attention: If you have any medications at [...] Electronically Signed By: FELIX SANTOS CNP Signed On:27-MAY-2014 16:35:47 Additional Information: Source: [facility] POWERCHART Document Id: [id number] Miscellaneous - Whitney Zabala L.PKarolN. - 05/27/2014 4:28 PM CDT Adult Service Desk Analyst Intake/History Adult Service Desk Analyst Intake/History Entered On: 05/27/2014 16:30 CDT Performed On: 05/27/2014 16:28 CDT by WHITNEY ZABALA LPN Intake Chief Complaint : Right ear pain. Started bothering last night. Bloody drainage. Temperature Core : 36.7 DegC(Converted to: 98.1 DegF) Peripheral Pulse Rate : 64 /min Respiratory Rate : 16 /min Heart Rhythm : Regular Systolic Blood Pressure : 118 mmHg Diastolic Blood Pressure : 68 mmHg NIBP Mean : 85 mmHg BP Location : Right upper extremity Blood Pressure Cuff Size : Regular Height : 179 cm(Converted to: 5 ft 10 inch(es), 70 inch(es)) Actual Weight : 85.7 kg(Converted to: 188 lb 15 oz) Weight Source : Standing scale Dosing Weight Clinic : 85.7 kg Clinic BSA : 2.06 Body Mass Index : 26.75 kg/m2 WHITNEY ZABALA LPN - 05/27/2014 16:28 CDT General Info Information Given By : Patient Languages : Slovak Is Patient Female and 13-50 no hysterectomy : No WHITNEY ZABALA BASIC ACOUSTIC ANALYST - 05/27/2014 16:28 CDT Subjective Pain Symptoms : Yes WHITNEY ZABALA BASIC ACOUSTIC ANALYST - 05/27/2014 16:28 CDT Pain Pain Assessment Grid Pain 1 Location : Ear Laterality : Right Intensity : 7 WHITNEY ZABALA [facility] - 05/27/2014 16:28 CDT Dependent Habits Tobacco Use/Currently Using : No Exposure to Tobacco Smoke : Other: Never Smoking Status : Never smoker WHITNEY ZABALA [facility] - 05/27/2014 16:28 CDT Caffeine Use Grid Caffeine Use : Current Type : Soft drinks Frequency : Occasionally WHITNEY ZABALA [facility] - 05/27/2014 16:28 CDT Recreational Drug Use Grid Drug Use : None WHITNEY ZABALA [facility] - 05/27/2014 16:28 CDT Source: [employer] Document Id: [id number] CDT!42 documented in this encounter Plan of Treatment Not on filedocumented as of this encounter Visit Diagnoses Not on filedocumented in this encounter
--- OUTSIDE RECORDS SUMMARY | 2022-06-30 08:33 | XMS_ITS | Encounter Summary ---
:1960 Author Organization [facility] Address [address] [place] [address] Care Team Providers Name Role Phone Unavailable Primary Care Provider Unavailable Encounter Details Date Type Department Care Team Description 01/21/2014 Hospital Encounter HX [facility]ILY[facility] MyrRula donovan, R AND D LAB TECHNICIAN, C.N.P. [address] [place] [address] (Wo rk) Social History Tobacco [...] or relatives? How often do you attend quaker or mandaen More than 4 time s per year 02/02/2021 services? Do you belong to any clubs or organizations No 02/02/2021 such as quaker groups, unions, fraternal or athletic groups, or [...] Sign Reading Time Taken Comments Blood Pressure 112/74 01/21/2014 8:13 AM CDT Pulse 68 01/21/2014 8:13 AM CDT Temperature - - Respiratory Rate 16 01/21/2014 8:13 AM CDT Oxygen Saturation - - Inhaled Oxygen Concentration - - Weight 84.5 kg (186 lb 4.6 oz) 01/21/2014 8:13 AM CDT Height 179 cm (5' 10.47) 01/21/2014 8:13 AM CDT Body Mass Index 26.37 01/21/2014 8:13 AM CDT documented in this encounter Medications at Time of Discharge Medication Sig Dispensed Refills Start Date End Date calcium carbonate-vitamin Take 1 tablet by mouth 0 04/04/2012 D3 (CALCIUM 600 + D,3,) daily. 600 mg calcium- 200 unit capsule FSH/FLX/PRIM/CUR/BOR/OM3, Take 1 capsule by 0 05/2014 6,9 5 (OMEGA 3-6-9 FATTY mouth daily. ACIDS ORAL) shubargeunmm-Bp-voud-mine Take 1 tablet by mouth 0 01/14/2010 rals tablet daily. UNABLE TO FIND daily. Amberen 0 09/30/2013 documented as of this encounter H&P Notes Felix Santos, ASHIA, C.N.P. - 01/21/2014 8:00 AM CDT [id number] CHIEF COMPLAINT/REASON FOR VISIT Preop for hysteroscopy, D&C, and endometrial ablation. HISTORY OF PRESENT ILLNESS Amanda is being seen at request of Dr. Freeman, for medical evaluation prior to surgery. She is scheduled for hysteroscopy, D&C with endometrial ablation at [facility] on 01/28/2014. She has no history of bleeding tendency or blood transfusions. MEDICATIONS Lipitor 10 mg 1 every day Verapamil 180 mg 24 hour capsule 1 daily for Raynaud disease. Multivitamin 1 daily. Calcium with vitamin D 1 daily. Magnesium citrate 1 daily. ALLERGIES None. SYSTEMS REVIEW The patient denies any visual changes. Denies any changes in hearing. No nasal discharge. No sores in the mouth or difficulty swallowing. No adenopathy in the neck or elsewhere. Denies shortness of breath or palpitations. No angina or pressure in the chest. No nausea or vomiting. No change in bowel orbladder habits. No blood in urine or stool. No pelvic symptoms or complaints. No significant arthritis. No neurologic symptoms. No concern about any skin lesions. PAST MEDICAL/SURGICAL HISTORY MEDICAL HISTORY: Hypercholesterolemia. Menorrhagia. Mood disorder. Perimenopausal symptoms. Raynaud's disease. Basal cell skin cancer, left lower leg. Varicose veins. SURGICAL HISTORY: Varicose vein stripping. Ovarian cystectomy. Excision of skin cancer left leg. PREVENTIVE Up to date. SOCIAL HISTORY She does not smoke. Rare alcohol. FAMILY HISTORY Mother age 69, cause of brain tumor. VITAL SIGNS Temperature 37.1, pulse 68, respirations 16, blood pressure 112/74, O2 saturation 98%, height 179 cm, weight 84.5 kg, BMI 26.37. PHYSICAL EXAMINATION GENERAL: The patient is a pleasant female who appears her stated age. SKIN: Without lesion. EYES: PERRLA, EOMs intact. Fundi sharp discs. Conjunctiva and [...] nonfocal. NEUROLOGIC: Reflexes are +2 and symmetrical. IMPRESSION/REPORT/PLAN Preoperative medical evaluation. Patient's active problems diagnostically and therapeutically optimized for planned procedure. Preanesthesia screening for obstructive sleep apnea completed; she is low risk with a score of 1. She will not use any aspirin, NSAIDs or fish oil prior to surgery. She will be nothing by mouth after midnight the night before surgery. She will resume all of her medications after surgery. LABORATORY: CBC and BMP. DIAGNOSTICS: Chest x-ray shows a right upper lobe nodule. CT scan ordered. EKG: Normal sinus rhythm Appropriate paperwork will be completed and faxed to [facility]. All of her questions were answered. She is class ASA 1. Felix Santos, SONIA/aos Electronically Signed By: FELIX SANTOS CNP On: 01/21/2014 10:12 AM Modified by and Electronically Signed by: FELIX SANTOS CNP On: 01/21/2014 10:12 AM Source: [facility] MHSDOLBEYNONRADSYS Document Id: [id number] documented in this encounter Miscellaneous Notes Miscellaneous - Felix Santos APRN, C.N.P. - 01/21/2014 9:17 AM CDT General Message From: FELIX SANTOS CNP Sent: 01/21/2014 09:17:50 CDT Subject: General Message Pre-op chest x-ray shows a right upper lobe nodule. CT scan ordered. Source: [facility] POWERCHART Document Id: [id number] Electronically signed by [facility] Clothing Sales Assistant [id number] at 03/14/2017 10:43 AM CDT Miscellaneous - Felix Santos APRN, C.N.P. - 01/21/2014 8:18 AM CDT Ambulatory Patient Summary [address] [id number] Visit Information Name: AMANDA MARCELO [facility] Number: [id number] Current Date: 01/21/2014 08:18:56 Physicians Attending Provider: FELIX SANTOS CNP Primary [...] the Following Medications: Medication list as of 01-21-14 08:18 Attention: If you have any medications at [...] Electronically Signed By: FELIX SANTOS CNP Signed On:21-JAN-2014 08:18:35 Your Allergies & Intolerances Substance Reaction Symptoms Category Comments No Known Allergies Drug Your Problem List Problem Status Onset Comments Raynaud's disease Active Hypercholesterolemia Active 03/23/2010 Varicose veins Active Menorrhagia Active Skin cancer Active 01/28/2010 06/11/10 left lower leg Perimenopausal Active 12/13/2013 Mood disorder NOS. Active 12/13/2013 Your Upcoming Appointments Date Time Location Reason Provider No Appointments found Attention: Contact your local Clinic if further appointment detail needed. [id number] HEAVY MENSTRUAL BLEEDING In this condition (also called menorrhagia), the menstrual periods are heavier or longer than usual. You may pass large, dark clots. If you have frequent, heavy periods, you may become anemic (low blood count). Severe anemia may cause you to look pale and feel weak or fatigued. You might become short of breath with minimal exertion. Heavy or prolonged bleeding may be due to female hormones being out of balance. Other causes includepelvic infection, benign fibroid tumors, use of an IUD or low thyroid function. It may occur in girls soon after they start to have their periods. Older women close to the age of menopause may also have this type of bleeding. If heavy bleeding does not stop, further evaluation will be needed to find out the exact cause. HOME CARE: 1. If you tire easily, get plenty of rest. Avoid heavy exertion. 2. Do not take aspirin-containing products and anti-inflammatory medicines like ibuprofen (Advil, Motrin), which thin the blood and may cause more bleeding. You may take acetaminophen (Tylenol) for pain unless another pain medicine was prescribed. 3. If iron was prescribed for anemia, it will take about 4-6 weeks to rebuild your blood and correctthe anemia. Take the iron as directed. 4. If hormones were prescribed to control your bleeding, take them just as instructed. If you stop too soon or miss doses, the bleeding may begin again. If you were prescribed a medicine called Provera(medroxyprogesterone), the bleeding should stop while you are taking it. Another period will start afew days after you finish the medicine. FOLLOW UP: You should see your doctor within the next 1-2 days if your bleeding does not begin to improve. Otherwise, schedule an appointment within the next 1- 2 weeks. GET PROMPT MEDICAL ATTENTION if any of the following occur: ?? Heavier bleeding (soaking one pad an hour for three hours) ?? Heavy bleeding for more than one week ?? Fever of 100.4??F (38??C) or higher, or as directed by your healthcare provider ?? Increase in abdominal pain Feeling weak or dizzy, fainting ?? [id number] [place] [address]. All rights reserved. This information is not intended as a substitute for professional medical care. Always follow your healthcare professional's instructions. Your Goals/Additional instructions: This document has images extracted. Please consider using [employer] for all your patient education needs. Source: [facility] POWERCHART Document Id: [id number] Miscellaneous - Felix Santos APRN, C.N.P. - 01/21/2014 8:18 AM CDT Ambulatory Discharge Medication List [address] [id number] [facility] [place] [phone] Visit Information Name: AMANDA MARCELO [facility] Number: [id number] Visit Date: 01/21/2014 08:18:55 Attending Provider: FELIX SANTOS CNP Primary Care [...] the Following Medications: Medication list as of 01-21-14 08:18 Attention: If you have any medications at [...] Electronically Signed By: FELIX SANTOS CNP Signed On:21-JAN-2014 08:18:35 Additional Information: Source: [facility] POWERCHART Document Id: [id number] Miscellaneous - Dori Zabala L.P.N. - 01/21/2014 8:14 AM CDT Obstructive Sleep Apnea Obstructive Sleep Apnea Entered On: 01/21/2014 8:15 CDT Performed On: 01/21/2014 8:14 CDT by DORI ZABALA LPN GREGORY Screening Known Obstructive Sleep Apnea : No - NOT diagnosed with GREGORY DORI ZABALA LPN - 01/21/2014 8:14 CDT GREGORY Assessment Do you have high blood pressure or have you been told to take medication for high blood pressure? : No Frequency of Snoring : Often (1-2 times per week) Frequency of Gasping, Choking, Snorting : Often (1-2 times per week) Total Number of Historical Features : 0 Neck Circumference (cm) : 36/37 Total Sleep Apnea Clinical Score Calc : 1 DORI ZABALA LPN - 01/21/2014 8:14 CDT Source: [place] Document Id: [id number] CDT!10 Miscellaneous - Dori Zabala L.P.N. - 01/21/2014 8:13 AM CDT Adult Tomography Technologist Intake/History Adult Tomography Technologist Intake/History Entered On: 01/21/2014 8:14 CDT Performed On: 01/21/2014 8:13 CDT by DORI ZABALA LPN Intake Chief Complaint : Pre-op on 01/28/2014. Lydia doing ablation. Temperature Core : 37.1 DegC(Converted to: 98.8 DegF) Peripheral Pulse Rate : 68 /min Respiratory Rate : 16 /min Heart Rhythm : Regular Systolic Blood Pressure : 112 mmHg Diastolic Blood Pressure : 74 mmHg NIBP Mean : 87 mmHg BP Location : Right upper extremity Blood Pressure Cuff Size : Regular SpO2 : 98 % Oxygen Therapy : Room air Height : 179 cm(Converted to: 5 ft 10 inch(es), 70 inch(es)) Actual Weight : 84.5 kg(Converted to: 186 lb 5 oz) Weight Source : Standing scale Dosing Weight Clinic : 84.5 kg Clinic BSA : 2.05 Body Mass Index : 26.37 kg/m2 DORI ZABALA SENIOR FINANCIAL ANALYST - 01/21/2014 8:13 CDT General Info Information Given By : Patient Languages : Ukrainian DORI ZABALA [facility] - 01/21/2014 8:13 CDT Subjective Pain Symptoms : No DORI ZABALA SENIOR FINANCIAL ANALYST - 01/21/2014 8:13 CDT Dependent Habits Tobacco Use/Currently Using : No Smoking Status : Never smoker DORI ZABALA [facility] - 01/21/2014 8:13 CDT Caffeine Use Grid Caffeine Use : Current Type : Soft drinks Frequency : Occasionally DORI ZABALA [facility] - 01/21/2014 8:13 CDT Recreational Drug Use Grid Drug Use : None DORI ZABALA [facility] - 01/21/2014 8:13 CDT Source: [place] Document Id: [id number] CDT!36 documented in this encounter Plan of Treatment Not on filedocumented as of this encounter Procedures Procedure Name Priority Date/Time Associated Diagnosis Comme nts AUTOMATED Routine 01/21/2014 9:15 AM Results f or this DIFFERENTIAL, B CDT procedure ar e in the results section. CBC WITH Routine 01/21/2014 9:15 AM Results f or this DIFFERENTIAL, B CDT procedure ar e in the results section. BASIC METABOLIC Routine 01/21/2014 9:15 AM Result s for this PANEL, S/P CDT procedure are i n the results section. DX CHEST AP OR PA Routine 01/21/2014 8:15 AM Resu lts for this AND LATERAL 2 VIEWS CDT procedur e are in the results section. documented in this encounter Results Automated Differential (01/21/2014 9:15 AM CDT) P athologist Signature Neutro % 59.3 34.0 - POWERCHART 71.1 Lymphocytes % 26.9 19.3 - POWERCHART 51.7 HX [place] % 10.3 4.7 - 12.5 POWERCHART HX Eos % 3.0 0.7 - 5.8 POWERCHART HX Baso % 0.5 0.1 - 1.2 POWERCHART Absolute 2.53 1.70 - POWERCHART Neutrophils 7.00 109L Lymphocytes 1.15 0.90 - POWERCHART 2.90 X109L Monocytes 0.44 0.30 - POWERCHART 0.90 X109L Eosinophils 0.13 0.05 - POWERCHART 0.50 X109L Absolute 0.02 0.00 - POWERCHART Basophil 0.30 X109L Specimen Anatomical Collection Method Collection Time Receive d Time (Source) Location / / Volume Laterality Blood 01/21/2014 9:15 AM 4 9:15 CDT AM CDT Felix Santos APRN, C.N.P. LAB BLOOD ADD-ON Performing Organization Address City/State/ZIP Code Phon e Number POWERCHART CBC with Differential (01/21/2014 9:15 AM CDT) athologist Signature Leukocytes 4.3 3.4 - 10.5 POWERCHART X109L Erythrocytes 4.40 3.90 - POWERCHART 5.03 [id number] Hemoglobin 13.3 12.0 - POWERCHART 15.5 GDL Hematocrit 40.7 34.9 - POWERCHART 44.5 MCV 92.5 82.0 - POWERCHART 98.0 FL Platelet Count 154 150 - 450 POWERCHART X109L HX RDW 12.8 11.9 - POWERCHART 15.5 HXDifferential? Auto POWERCHART Specimen (Source) Anatomical Collection Method Collection Time Re ceived Time Location / / Volume Laterality Blood 01/21/2014 9:15 AM CDT Felix Santos APRN, C.N.P. LAB BLOOD ADD-ON Performing Organization Address City/State/ZIP Code Phon e Number POWERCHART (ABNORMAL) BMP (Basic Metabolic Panel) (01/21/2014 9:15 AM CDT) P athologist Signature BUN (Blood Urea 18 6 - 20 POWERCHART Nitrogen), S MGDL Creatinine 0.8 0.7 - 1.2 POWERCHART MGDL Glucose 98 POWERCHART Potassium, S 5.5 (H) 3.5 - 4.8 POWERCHART MMOLL Sodium, S 141 135 - 145 POWERCHART MMOLL Chloride, S 103 100 - 108 POWERCHART MMOLL CO2 Total 28 22 - 30 POWERCHART MMOLL Calcium, Total, 9.5 8.5 - 10.5 POWERCHART S MGDL HXeGFR (MDRD) >60 MLMIN POWERCHART eGFR >60 MLMIN POWERCHART Black/ Specimen (Source) Anatomical Collection Method Collection Time Re ceived Time Location / / Volume Laterality Blood 01/21/2014 9:15 AM CDT Felix Santos APRN, C.N.P. LAB BLOOD ADD-ON Performing Organization Address City/State/ZIP Code Phon e Number POWERCHART DX Chest AP or PA and Lateral 2 Views (01/21/2014 8:15 AM CDT) Anatomical Region Laterality Modality Chest N/A Radiographic Imaging Specimen (Source) Anatomical Collection Method Collection Time Re ceived Time Location / / Volume Laterality 01/21/2014 8:15 AM CDT Impressions 01/21/2014 8:47 AM CDT Right upper lobe nodule. Would recommend a chest CT scan for further evaluation. Narrative 01/21/2014 8:47 AM CDT EXAM: XR Chest 2 Views INDICATION: Pre-Op COMPARISON: None. FINDINGS: The heart is normal in size. T here is a 8.6 x 8 18 mm uncalcified nodule in the right apex. Th e lungs are otherwise clear. Procedure Note Demetrius Ramos M.D. / Provider, Aimee knowles M.D. - 02/24/2017 EXAM: XR Chest 2 Views INDICATION: Pre-Op COMPARISON: None. FINDINGS: The heart is normal in size. T here is a 8.6 x 8 18 mm uncalcified nodule in the right apex. Th e lungs are otherwise clear. IMPRESSION: Right upper lobe nodule. Wou ld recommend a chest CT scan for further evaluation. Anibal Joaquin(Tia)(M) IMG DIAGNOSTIC IMAGING PROCE DURES documented in this encounter Visit Diagnoses Not on filedocumented in this encounter
--- OUTSIDE RECORDS SUMMARY | 2022-06-30 08:33 | XMS_ITS | Encounter Summary ---
:1960 Author Organization [facility] Address [address] [place] [address] Care Team Providers Name Role Phone Unavailable Primary Care Provider Unavailable Encounter Details Date Type Department Care Team Description 01/09/2014 Hospital Encounter HX [facility] Rell Fields M.D. [address], [place] [address] (Wo rk) Social History [...] How often do you attend advent or episcopal More than 4 time s per year [...] or slept in a snf (including now)? 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 600 mg calcium- 200 unit capsule epyczfmyffoe-Tl-lftj-mine Take 1 tablet by mouth 0 01/14/2010 rals tablet daily. UNABLE TO FIND daily. Amberen 0 09/30/2013 documented as of this encounter Progress Notes Kina Barber M.D. - 01/09/2014 3:50 PM CDT [id number] CHIEF COMPLAINT/REASON FOR VISIT Followup of endometrial biopsy results and treatment planning. HISTORY OF PRESENT ILLNESS Amanda is a 53-year-old nulliparous female, who presented in consultation initially on 12/13/2013 formenorrhagia and mood symptoms. Her menstrual irregularity had been going on over the last several months, and she had gone for 3 months at a time without having a period and then had extremely heavy ble eding with passage of clots lasting for 9 days. She had been on oral contraceptive pills from age 32to 51 for regulation of menses and did well with that until she went off the oral contraceptive pills. She does state that she had mood symptoms during that time, including symptoms of depression. She also was seen at a hormone replacement clinic in [place] and was on a 1-year program of inserting pellets into her body. She did that after stopping the oral contraceptive pills. She underwent pelvic ultrasound to evaluate her uterus, and this showed a normal-appearing uterus with an endometriumthat measured 13 mm. The myometrium was homogeneous, and she had a 3.6 cm cyst on her right ovary jonathan t appeared simple. Endometrial biopsy was performed at the time of her last visit and showed polypoid fragments of proliferative endometrium. MEDICATIONS See EMR. ALLERGIES See EMR. SYSTEMS REVIEW GENERAL: No fevers, chills, fatigue, unintentional weight loss or weight gain. HEENT: No changes in vision or hearing, no sore throat or nasal congestion. CARDIOVASCULAR: No chest pain, irregular heartbeat or racing heart. RESPIRATORY: No shortness of breath, cough or wheeze. GASTROINTESTINAL: No nausea, vomiting, diarrhea, constipation or abdominal pain. GENITOURINARY: Positive for irregular vaginalbleeding and heavy periods/see HPI. No pain or burning with urination, abnormal vaginal discharge, leaking urine, leaking stool or gas. SKIN: No rashes or skin lesions. BREASTS: No masses or lumps, no discharge from the nipples. NEURO: No difficulty with memory, numbness, tingling, falls. PSYCHIATRIC:No anxiety, depression, or difficulty sleeping. ENDOCRINE: No heat intolerance, cold intolerance, excessive thirst or hair loss. VITAL SIGNS See EMR. PHYSICAL EXAMINATION GENERAL: Well-nourished female, in no acute distress. IMPRESSION/REPORT/PLAN A 53-year-old, nulliparous female with irregular menses, menorrhagia and mood symptoms, with polypoid endometrium on endometrial biopsy. 1. Menorrhagia: The patient has polypoid endometrium on biopsy and her endometrial stripe was quite thick early in her cycle at 13 mm. Therefore, at this time I have recommended hysteroscopy, D&C, and endometrial polypectomy. We have also discussed the option of endometrial ablation during the hysteroscopy. The patient would like to proceed with this. The risks, benefits, and alternatives of the procedure were discussed with the patient, and informed consent was obtained. We will plan to proceedwith this procedure on January 21. The patient's partner has had a vasectomy and, therefore, she is not in need of another permanent method of contraception. The patient's thyroid was last checked in September and it was within normal limits, and her hemoglobin was normal at the time of the last check as well. 2. Perimenopausal symptoms: The patient has had mood symptoms associated with this abnormal bleeding. However, her mood symptoms seem to have preceded this. She also complains of vasomotor symptoms. Following her procedure, we could consider initiation of oral contraceptive pills for 1 year to see howshe does with this in terms of her vasomotor symptoms and mood symptoms. 3. Right ovarian cyst. This is a simple, likely follicular cyst. We will plan to repeat the ultrasound 6 to 8 weeks after the initial ultrasound to assess for resolution. The patient has been counseledthat these cysts usually resolve over time. 4. Followup: The patient will see her primary provider, Felix Santos, in the near future for a preoperative history and physical. She will return on January 21, to [facility] for hysteroscopy, D&C, and hydrothermal endometrial ablation. If she has any questions prior to that time, she should call the clinic. Administrative Billing: Please note that greater than 50% of this 30-minute visit was spent in counseling the patient. Kina Barber M.D./rui cc: Felix Santos CNP Electronically Signed By: KINA BARBER MD On: 01/26/2014 02:49 PM Source: [facility] MHSDOLBEYNONRADSYS Document Id: [id number] documented in this encounter Miscellaneous Notes Miscellaneous - Kina Barber M.D. - 01/11/2014 5:05 PM CDT Ambulatory Patient Summary [address] [id number] Visit Information Name: AMANDA MARCELO [facility] Number: [id number] Visit Date: 01/11/2014 17:05:20 Attending Provider: KINA BARBER MD Primary Care [...] the Following Medications: Medication list as of 01-11-14 17:05 Attention: If you have any medications at home that are not on this list, DO NOT take them until youcontact your provider for clarification. Give a copy of your medication list to your primary care provider. Update your medication list any time medications or doses are changed and carry your medication list at all times in case of emergency. Additional Information: Source: [facility] POWERCHART Document Id: [id number] Miscellaneous - Kina Barber M.D. - 01/11/2014 5:05 PM CDT Ambulatory Discharge Medication List [address] [id number] Visit Information Name: AMANDA MARCELO [facility] Number: [id number] Visit Date: 01/11/2014 17:05:19 Attending Provider: KINA BARBER MD Primary Care [...] the Following Medications: Medication list as of 01-11-14 17:05 Attention: If you have any medications at [...] emergency. Additional Information: [facility] Document Id: [id number] Miscellaneous - Batsheva Kuo, R.N. - 01/09/2014 3:59 PM CDT Adult Sap Bpc Architect Intake/History Adult Sap Bpc Architect Intake/History Entered On: 01/09/2014 16:01 CDT Performed On: 01/09/2014 15:59 CDT by BATSHEVA ROBB Intake Chief Complaint : results and planning Peripheral Pulse Rate : 63 /min Systolic Blood Pressure : 100 mmHg Diastolic Blood Pressure : 64 mmHg NIBP Mean : 76 mmHg BP Location : Left upper extremity Blood Pressure Cuff Size : Regular Actual Weight : 79.0 kg(Converted to: 174 lb 3 oz) Dosing Weight Clinic : 79 kg BATSHEVA ROBB - 01/09/2014 15:59 CDT General Info Languages : Surinamese BATSHEVA ROBB - 01/09/2014 15:59 CDT Subjective Pain Symptoms : No BATSHEVA ROBB - 01/09/2014 15:59 CDT Dependent Habits Tobacco Use/Currently Using : No Smoking Status : Unknown if ever smoke BATSHEVA ROBB - 01/09/2014 15:59 CDT Caffeine Use Grid Caffeine Use : Current Type : Soft drinks Frequency : Occasionally BATSHEVA ROBB - 01/09/2014 15:59 CDT Recreational Drug Use Grid Drug Use : None BATSHEVA ROBB - 01/09/2014 15:59 CDT [facility] Document Id: [id number] CDT!26 documented in this encounter Plan of Treatment Not on filedocumented as of this encounter Visit Diagnoses Not on filedocumented in this encounter
--- OUTSIDE RECORDS SUMMARY | 2022-06-30 08:33 | XMS_ITS | Encounter Summary ---
:1960 Author Organization [facility] Address [address] [place] [address] Care Team Providers Name Role Phone Unavailable Primary Care Provider Unavailable Encounter Details Date Type Department Care Team Description 04/22/2014 Hospital Encounter [facility]X [facility] Allyson Resendiz, Alejandra DE LA GARZA, C.N.P. [address] [place], [place] [phone] (Wo rk) Social History [...] How often do you attend denominational or mormonism More than 4 time s per year [...] - - Height 179 cm (5' 10.47) 04/22/2014 8:37 AM CDT Body Mass Index - - documented in this encounter Medications at Time of Discharge Medication Sig Dispensed Refills Start Date End Date calcium carbonate-vitamin Take 1 tablet by mouth 0 04/04/2012 D3 (CALCIUM 600 + D,3,) daily. 600 mg calcium- 200 unit capsule FSH/FLX/PRIM/CUR/BOR/OM3, Take 1 capsule by 0 05/2014 6,9 5 (OMEGA 3-6-9 FATTY mouth daily. ACIDS ORAL) puiltkbywisb-Mq-ruek-mine Take 1 tablet by mouth 0 01/14/2010 rals tablet daily. UNABLE TO FIND daily. Amberen 0 09/30/2013 documented as of this encounter Plan of Treatment Not on filedocumented as of this encounter Procedures Procedure Name Priority Date/Time Associated Comments Diagnosis BUN (BLOOD UREA Routine 04/22/2014 8:38 AM Result s for this NITROGEN), S/P CDT procedure are in the results section. CREATININE WITH Routine 04/22/2014 8:38 AM Result s for this EGFR, S/P CDT procedure are i n the results section. documented in this encounter Results Creatinine with eGFR (04/22/2014 8:38 AM CDT) P athologist Signature Creatinine 0.9 0.7 - 1.2 POWERCHART MGDL eGFR >60 MLMIN POWERCHART Black/ HXeGFR (MDRD) >60 MLMIN POWERCHART Specimen (Source) Anatomical Collection Method Collection Time Re ceived Time Location / / Volume Laterality Blood 04/22/2014 8:38 AM CDT Allyson Resendiz APRN, C.N.P. LAB BLOOD ADD-ON Performing Organization Address City/State/ZIP Code Phon e Number POWERCHART BUN (Blood Urea Nitrogen) (04/22/2014 8:38 AM CDT) P athologist Signature BUN (Blood Urea 12 6 - 20 MGDL POWERCHART Nitrogen), S Specimen (Source) Anatomical Collection Method Collection Time Re ceived Time Location / / Volume Laterality Blood 04/22/2014 8:38 AM CDT Allyson Resendiz APRN, C.N.P. LAB BLOOD ADD-ON Performing Organization Address City/State/ZIP Code Phon e Number POWERCHART documented in this encounter Visit Diagnoses Not on filedocumented in this encounter
--- OUTSIDE RECORDS SUMMARY | 2022-06-30 08:33 | XMS_ITS | Encounter Summary ---
:1960 Author Organization [facility] Address [address] [place] [address] Care Team Providers Name Role Phone Unavailable Primary Care Provider Unavailable Encounter Details Date Type Department Care Team Description 01/28/2014 Hospital Encounter HX NO MAPPING Marty Freeman M.D. [address] [employer], [place] [phone] (Wo rk) Social History [...] or relatives? How often do you attend samaritan or religion More than 4 time s per year 02/02/2021 services? Do you belong to any clubs or organizations No 02/02/2021 such as samaritan groups, unions, fraternal or athletic groups, or [...] (OMEGA 3-6-9 FATTY mouth daily. ACIDS ORAL) qmpqifyhqlam-Rp-ybry-mine Take 1 tablet by mouth 0 01/14/2010 rals tablet daily. UNABLE TO FIND daily. Amberen 0 09/30/2013 documented as of this encounter Plan of Treatment Not on filedocumented as of this encounter Visit Diagnoses Not on filedocumented in this encounter
--- OUTSIDE RECORDS SUMMARY | 2022-06-30 08:33 | XMS_ITS | Encounter Summary ---
:1960 Author Organization [facility] Address [address] [place] [address] Care Team Providers Name Role Phone Unavailable Primary Care Provider Unavailable Encounter Details Date Type Department Care Team Description 11/29/2013 Hospital Encounter [facility]X [facility] Felix Santos, Alejandra DE LA GARZA, C.N.P. [address] [place], [place] [phone] (Wo rk) Social History [...] How often do you attend methodist or baptist More than 4 time s [...] daily. 600 mg calcium- 200 unit capsule vrdpjjrwzofo-Zj-sblw-mine Take 1 tablet by mouth 0 01/14/2010 rals tablet daily. UNABLE TO FIND daily. Amberen 0 09/30/2013 documented as of this encounter Miscellaneous Notes Miscellaneous - Felix Santos, ASHIA, C.N.P. - 12/03/2013 8:27 AM CST General Message From: FELIX SANTOS COPPERSMITH APPRENTICE To: YAMEL MARCELO Sent: 12/03/2013 08:27:12 INFORMATION SYSTEMS MANAGER Subject: General Message Yamel, Lipid panel and liver test look great. Felix Results: Date Result Name Ind Value Ref Range 11/29/2013 08:36 AST 24 unit/L (8 - 43) 11/29/2013 08:36 Cholesterol 177 mg/dL (0 - 200) 11/29/2013 08:36 Trig 83 mg/dL (0 - 150) 11/29/2013 08:36 HDL (H) 61.0 mg/dL (40.0 - 60.0) 11/29/2013 08:36 LDL Calculated 99 mg/dL (0 - 100) Source: [facility] [employer] Document Id: [id number] Electronically signed by Conversion, [facility] Blacksmith Apprentice [id number] at 03/14/2017 5:23 PM CDT documented in this encounter Plan of Treatment Not on filedocumented as of this encounter Procedures Procedure Name Priority Date/Time Associated Comments Diagnosis LIPID PANEL, S Routine 11/29/2013 8:36 Results fo r this AM INFORMATION SYSTEMS MANAGER procedure are i n the results section. ASPARTATE Routine 11/29/2013 8:36 Results for this AMINOTRANSFERASE (AST), AM INFORMATION SYSTEMS MANAGER proc edure are in S/P the results section. documented in this encounter Results (ABNORMAL) Lipid Panel (11/29/2013 8:36 AM INFORMATION SYSTEMS MANAGER) [facility] Method Time Signature Cholesterol, 177 0 - 200 POWERCHART Total MGDL HX HDL 61.0 (H) 40.0 - POWERCHART 60.0 MGDL Triglycerides 83 0 - 150 POWERCHART MGDL Calculated LDL 99 0 - 100 POWERCHART MGDL Specimen (Source) Anatomical Collection Method Collection Time Re ceived Time Location / / Volume Laterality Blood 11/29/2013 8:36 AM INFORMATION SYSTEMS MANAGER Felix Santos APRN C.N.P. LAB BLOOD ADD-ON Performing Organization Address City/State/ZIP Code Phon e Number POWERCHART AST (Aspartate Aminotransferase) (11/29/2013 8:36 AM INFORMATION SYSTEMS MANAGER) [facility] gist Method Time Signature Aspartate 24 8 - 43 POWERCHART Aminotransferase UNITL (AST), S Specimen (Source) Anatomical Collection Method Collection Time Re ceived Time Location / / Volume Laterality Blood 11/29/2013 8:36 AM INFORMATION SYSTEMS MANAGER Felix Santos APRN, C.N.P. LAB BLOOD ADD-ON Performing Organization Address City/State/ZIP Code Phon e Number POWERCHART documented in this encounter Visit Diagnoses Not on filedocumented in this encounter
--- OUTSIDE RECORDS SUMMARY | 2022-06-30 08:33 | XMS_ITS | Encounter Summary ---
:1960 Author Organization [facility] Address [address] [place] [address] Care Team Providers Name Role Phone Unavailable Primary Care Provider Unavailable Encounter Details Date Type Department Care Team Description 12/13/2013 Hospital Encounter HX [facility] Rell Fields M.D. [address], [place] [phone] (Wo rk) Social History [...] or relatives? How often do you attend moravian or hinduism More than 4 time s per year 02/02/2021 services? Do you belong to any clubs or organizations No 02/02/2021 such as moravian groups, unions, fraternal or athletic groups, or [...] Sign Reading Time Taken Comments Blood Pressure 110/60 12/13/2013 3:28 PM ADULT HEALTH CLINICAL NURSE SPECIALIST Pulse 72 12/13/2013 3:28 PM ADULT HEALTH CLINICAL NURSE SPECIALIST Temperature - - Respiratory Rate - - [...] daily. 600 mg calcium- 200 unit capsule mvgkazmqbpyx-Nf-pcck-mine Take 1 tablet by mouth 0 01/14/2010 rals tablet daily. UNABLE TO FIND daily. Amberen 0 09/30/2013 documented as of this encounter Procedure Notes Forrest Fishman L.PKarolN. - 12/13/2013 4:56 PM CST Hemoglobin POC Hemoglobin POC Entered On: 12/13/2013 16:56 ADULT HEALTH CLINICAL NURSE SPECIALIST Performed On: 12/13/2013 16:56 ADULT HEALTH CLINICAL NURSE SPECIALIST by FORREST FISHMAN Hemoglobin POC Hgb POC : 13.4 gm/dL Site : Finger, Left FORREST FISHMAN - 12/13/2013 16:56 ADULT HEALTH CLINICAL NURSE SPECIALIST [facility] Document Id: [id number] ADULT HEALTH CLINICAL NURSE SPECIALIST!4 T HEALTH CLINICAL NURSE SPECIALIST documented in this encounter Consult Notes Raven Barber M.D. - 12/13/2013 3:24 PM CST [id number] CHIEF COMPLAINT/REASON FOR VISIT Patient was seen in consultation at the request of her primary provider Felix Santos, certified nurse practitioner, for menorrhagia. HISTORY OF PRESENT ILLNESS Amanda is a 53-year-old nulliparous female who presents in consultation for menorrhagia. Amanda was seen by her primary provider Felix Santos in September 2013 and at that time she described going for 3 months without a period and then she had an extremely heavy period with passage of clots. That period lasted for 9 days. Since then she had a period again at the end of September that lasted for 3 days. OnNovember 11 and on November 30 she had onset of bleeding, and on November 30 that period lasted for 7days with 4 days of heavy bleeding. She wore a super tampon and a pad and was soaking through that every hour. Amanda states that she was on oral contraceptive pills from age 40 until age 51 for regulation of menses. She has a history of heavy and painful periods. She did well until that time. Then shewent off of the oral contraceptive pills and went to a [facility] in [place].She states that her hormones were checked and that she was started on a 1-year program of hormonal pellets that were inserted into her body. She is unsure of what hormones were in the pellets but stated that she felt better initially but her hormones were initially very low and once she started the pellets they went very high. She states that they were really never in the normal range. By the end of a year's time on this program she was not feeling any better and so she stopped the program. Amanda rep orts that she has had night sweats since her early 30s. She also complains of mood swings and symptoms of depression. Currently, she describes feeling like she used to feel just before her period wouldstart, as far as her mood is concerned. She states that she has decreased energy and that it is a big effort for her to even do things with her family. This is very frustrating to her. She also describes bleeding between her periods recently. MEDICATIONS 1. Atorvastatin 10 mg by mouth at bedtime. 2. Verapamil 180 mg by mouth daily. 3. Calcium plus vitamin D 1 tablet by mouth 3 times a day. 4. Magnesium citrate 300 mg by mouth once. 5. Vitamin B complex 1 tablet by mouth daily. ALLERGIES No known drug allergies. SYSTEMS REVIEW GENERAL: Positive for fatigue. No fevers, chills, unintentional weight loss or weight gain. HEENT: No changes in vision or hearing, no sore throat or nasal congestion. CARDIOVASCULAR: No chest pain, irregular heartbeat or racing heart. RESPIRATORY: No shortness of breath, cough or wheeze. GASTROINTESTINAL: No nausea, vomiting, diarrhea, constipation or abdominal pain. GENITOURINARY: Positive for irregular vaginal bleeding, heavy and painful periods and abnormal vaginal discharge that is blood tingedbetween menses - see HPI. No pain or burning with urination, leaking urine, leaking stool or gas. SKIN: No rashes or skin lesions. BREASTS: No masses or lumps, no discharge from the nipples. NEURO: No difficulty with memory, numbness, tingling, falls. PSYCHE: Positive for anxiety, depression, and difficulty sleeping related to these perimenopausal symptoms - see HPI. ENDOCRINE: Positive for cold intolerance. No heat intolerance, excessive thirst or hair loss. PAST MEDICAL / SURGICAL HISTORY 1. Varicose veins. 2. Raynaud's phenomenon. 3. Hypercholesterolemia. 4. Atypical nevus. 5. Menorrhagia. 6. Seborrheic keratoses on her back. PAST MEDICAL/SURGICAL HISTORY 1. Varicose vein stripping. 2. Ovarian cystectomy. 3. Excision of atypical nevus on left lower leg. MOLD SHEET CLEANER HISTORY Patient is nulliparous, she underwent menarche at approximately age 14. She has no history of sexually transmitted diseases and a remote history of 1 abnormal Pap smear but no abnormal since and no treatment was required. She is sexually active and has no issues with intercourse. SOCIAL HISTORY The patient is and has 6 stepchildren. 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 No tobacco or drug use, rare alcohol use. FAMILY HISTORY Mother with hyperlipidemia and brain cancer. Father with partial colectomy though the reason for this is unclear. No breast, ovarian or colon cancer in the family. VITAL SIGNS Pulse 72, BLOOD PRESSURE: 110/60. PHYSICAL EXAMINATION GENERAL: Well-nourished female in no acute distress. HEAD: Normocephalic, atraumatic. ENT: Vision and hearing grossly intact. THYROID: No thyromegaly or nodularity. CARDIOVASCULAR: Regular rate and rhythm, no murmurs, rubs or gallops. CHEST: Clear to auscultation bilaterally, no wheezes or rales. ABDOMEN: Soft, nondistended, nontender, normoactive bowel sounds. LOWER EXTREMITIES: Nontender, trace edema bilateral lower extremities. SKIN: The patient has a hypopigmented area on the left knee inner aspect of her lower leg where she underwent excision of the atypical nevus, the area is well healed at this time. IMPRESSION/REPORT/PLAN A 53-year-old nulliparous female who presents in consultation for perimenopausal symptoms including menorrhagia. 1. Perimenopausal symptoms: The patient has abnormal bleeding and mood symptoms, as well as vasomotor symptoms. We discussed at length today that all of these symptoms are fairly common in the perimenopausal period. She recently had her thyroid checked in September and it was within normal limits. Alsohemoglobin was checked at that time and it was normal as well. The patient describes this history ofhormone therapy with pellets. We discussed at length that compounding pharmacies are not monitored the same as commercial pharmacies. The patient is not sure of what hormones were in the pellets but she states that her hormone levels went way above normal while she was on the pellets. The patient is having heavy bleeding and intermenstrual bleeding. An order to evaluate this at this time, particularly given this history of hormone therapy with compounded hormones, I would like to pelvic ultrasound to evaluate for structural abnormalities with the uterus that could be contributing to this bleeding, as well as to evaluate her endometrium. I also think endometrial biopsy is necessary given her age and symptoms. She will return for this. We have discussed the possible etiologies of these bleeding abnormalities include hormonal imbalances related to the perimenopause, structural etiologies such as fibroids or polyps. We will be able to talk in more detail about treatment once we have excluded hyperplasia or malignancy or other structural causes of abnormal bleeding. The patient also complains of mood symptoms. We discussed that mood symptoms are quite common in the perimenopausal period but they us ually improve once menopausal. However, in the meantime we could consider management with oral contraceptive pills once we have excluded hyperplasia or malignancy. The patient states that she does not want to go on an antidepressant for treating this. I will also discuss the option of psychotherapy and increasing her exercise at her next visit. Finally, the patient does have vasomotor symptoms as well, particularly night sweats. These could be addressed hormonally as well. I have checked the patient's hemoglobin with a finger stick check today and is normal at 13.4. 2. Followup: The patient will be seen for pelvic ultrasound in the near future and I would like to see her a day or two after that for endometrial biopsy. We should be able to begin discussing treatment plan once I have the pelvic ultrasound results but we will not be able to plan anything definitive until the biopsy results have returned. Raven Barber M.D./maricruz cc: Felix Santos, PRODUCTION TEAM MANAGER Electronically Signed By: RAVEN BARBER MD On: 01/04/2014 05:26 PM Modified by and Electronically Signed by: RAVEN BARBER MD On: 01/04/2014 05:26 PM Source: [facility] Document Id: [id number] documented in this encounter Miscellaneous Notes Miscellaneous - Raven Barber M.D. - 12/13/2013 6:45 PM CST Ambulatory Patient Summary [address] [id number] Visit Information Name: AMANDA MARCELO [facility] Number: [id number] Visit Date: 12/13/2013 18:45:31 Attending Provider: RAVEN BARBER MD Primary Care [...] the Following Medications: Medication list as of 12-13-13 18:45 Attention: If you have any medications at home that are not on this list, DO NOT take them until youcontact your provider for clarification. Give a copy of your medication list to your primary care provider. Update your medication list any time medications or doses are changed and carry your medication list at all times in case of emergency. Additional Information: Source: [facility] POWERCHART Document Id: [id number] T HEALTH CLINICAL NURSE SPECIALIST Miscellaneous - Raven Barber M.D. - 12/13/2013 6:45 PM CST Ambulatory Discharge Medication List [address] [id number] Visit Information Name: AMANDA MARCELO [facility] Number: [id number] Visit Date: 12/13/2013 18:45:29 Attending Provider: RAVEN BARBER MD Primary Care [...] the Following Medications: Medication list as of 12-13-13 18:45 Attention: If you have any medications at home that are not on this list, DO NOT take them until youcontact your provider for clarification. Give a copy of your medication list to your primary care provider. Update your medication list any time medications or doses are changed and carry your medication list at all times in case of emergency. Additional Information: Source: [facility] [employer] Document Id: [id number] T HEALTH CLINICAL NURSE SPECIALIST Miscellaneous - Alberto Andrade L.P.N. - 12/13/2013 3:28 PM CST Adult Veterinary Radiologist Intake/History Adult Veterinary Radiologist Intake/History Entered On: 12/13/2013 15:32 ADULT HEALTH CLINICAL NURSE SPECIALIST Performed On: 12/13/2013 15:28 ADULT HEALTH CLINICAL NURSE SPECIALIST by ALBERTO ANDRADE Intake Chief Complaint : gets period every 2 weeks LMP Date : 10/30/13 Peripheral Pulse Rate : 72 /min Systolic Blood Pressure : 110 mmHg Diastolic Blood Pressure : 60 mmHg NIBP Mean : 77 mmHg ALBERTO ANDRADE - 12/13/2013 15:28 ADULT HEALTH CLINICAL NURSE SPECIALIST General Info Information Given By : Patient Preferred Communication Mode : Verbal Languages : Tunisian ALBERTO ANDRADEYL - 12/13/2013 15:28 ADULT HEALTH CLINICAL NURSE SPECIALIST Subjective Pain Symptoms : Yes ALBERTO ANDRADE - 12/13/2013 15:28 ADULT HEALTH CLINICAL NURSE SPECIALIST Pain Pain Assessment Grid Pain 1 Location : Pelvic ALBERTO ANDRADE - 12/13/2013 15:28 ADULT HEALTH CLINICAL NURSE SPECIALIST Dependent Habits Tobacco Use/Currently Using : No Smoking Status : Never smoker ALBERTO ANDRADE - 12/13/2013 15:28 ADULT HEALTH CLINICAL NURSE SPECIALIST Caffeine Use Grid Caffeine Use : Current Type : Soft drinks Frequency : Occasionally [place]AUNA[place]icoALBERTO - 12/13/2013 15:28 ADULT HEALTH CLINICAL NURSE SPECIALIST Recreational Drug Use Grid Drug Use : None ALBERTO ANDRADE - 12/13/2013 15:28 ADULT HEALTH CLINICAL NURSE SPECIALIST Source: [facility] Document Id: [id number] ADULT HEALTH CLINICAL NURSE SPECIALIST!29 T HEALTH CLINICAL NURSE SPECIALIST documented in this encounter Plan of Treatment Not on filedocumented as of this encounter Procedures Procedure Name Priority Date/Time Associated Comments Diagnosis HEMOGLOBIN (HGB), Routine 12/13/2013 4:56 PM Resu lts for this POCT, B ADULT HEALTH CLINICAL NURSE SPECIALIST procedure are i n the results section. documented in this encounter Results Hemoglobin (HGB), POCT (12/13/2013 4:56 PM ADULT HEALTH CLINICAL NURSE SPECIALIST) P athologist Signature Hemoglobin 13.4 12.0 - 15.5 POWERCHART GMDL Specimen (Source) Anatomical Collection Method Collection Time Re ceived Time Location / / Volume Laterality 12/13/2013 4:56 PM ADULT HEALTH CLINICAL NURSE SPECIALIST Raven Barber M.D. LAB POCT ORDERABLES - DEVICE Performing Organization Address City/State/ZIP Code Phon e Number POWERCHART documented in this encounter Visit Diagnoses Not on filedocumented in this encounter
--- OUTSIDE RECORDS SUMMARY | 2022-06-30 08:33 | XMS_ITS | Encounter Summary ---
:1960 Author Organization [facility] Address [address] [place] [address] Care Team Providers Name Role Phone Unavailable Primary Care Provider Unavailable Encounter Details Date Type Department Care Team Description 05/06/2014 Hospital Encounter HX [facility] ULTRASOUN Rula Resendiz, FRONT END APPLICATION DEVELOPER, C.N.P. [address] [place] [phone] (Wo rk) Social History Tobacco [...] How often do you attend mandaen or episcopal More than 4 time s [...] - - Height 179 cm (5' 10.47) 05/06/2014 8:28 AM CDT Body Mass Index - - documented in this encounter Medications at Time of Discharge Medication Sig Dispensed Refills Start Date End Date calcium carbonate-vitamin Take 1 tablet by mouth 0 04/04/2012 D3 (CALCIUM 600 + D,3,) daily. 600 mg calcium- 200 unit capsule FSH/FLX/PRIM/CUR/BOR/OM3, Take 1 capsule by 0 05/2014 6,9 5 (OMEGA 3-6-9 FATTY mouth daily. ACIDS ORAL) nghzsubzalhv-Ux-hwqa-mine Take 1 tablet by mouth 0 01/14/2010 rals tablet daily. UNABLE TO FIND daily. Amberen 0 09/30/2013 documented as of this encounter Plan of Treatment Not on filedocumented as of this encounter Procedures Procedure Name Priority Date/Time Associated Diagnosis Comme nts US THYROID Routine 05/06/2014 8:30 AM Results f or this CDT procedure are i n the results section . documented in this encounter Results Ultrasound thyroid (05/06/2014 8:30 AM CDT) Anatomical Region Laterality Modality Head and Neck Ultrasound Specimen (Source) Anatomical Collection Method Collection Time Re ceived Time Location / / Volume Laterality 05/06/2014 8:30 AM CDT Impressions 05/06/2014 9:42 AM CDT Multinodular thyroid as detailed. If pat ient is considered high risk, 12 month followup ultrasound can be obta ined to document stability. Narrative 05/06/2014 9:42 AM CDT Sonographic evaluation of the thyroid pe rformed utilizing color Doppler and grayscale imaging. COMPARISON: No prior. FINDINGS: Right lobe of the thyroid measures 5.6 x 2.1 x 1.3 cm providing a volume of 8.0 cc. Left lobe of the thyroid measures 5.2 x 1.8 x 1.7 cm providing a volume of 8.3 cc. Isthmus measures 4 mm in thickness. Multiple bilateral hypoechoic primarily cystic nodules. Echogenic foci with suggested ringdown artifact fa voring colloid nodules. Largest on the right measuring 1.1 cm. L argest on the left measuring 1.0 cm. No associated vascularity within the nod ules. Procedure Note Thomas Keyes M.D. / Provider, Aimee knowles M.D. - 02/24/2017 Sonographic evaluation of the thyroid pe rformed utilizing color Doppler and grayscale imaging. COMPARISON: No prior. FINDINGS: Right lobe of the thyroid measures 5.6 x 2.1 x 1.3 cm providing a volume of 8.0 cc. Left lobe of the thyroid measures 5.2 x 1.8 x 1.7 cm providing a volume of 8.3 cc. Isthmus measures 4 mm in thickness. Multiple bilateral hypoechoic primarily cystic nodules. Echogenic foci with suggested ringdown artifact fa voring colloid nodules. Largest on the right measuring 1.1 cm. L argest on the left measuring 1.0 cm. No associated vascularity within the nod ules. IMPRESSION: Multinodular thyroid as detailed. If pat ient is considered high risk, 12 month followup ultrasound can be obta ined to document stability. August Nam Jr. RRene.M.S. IMG US PROCEDURES documented in this encounter Visit Diagnoses Not on filedocumented in this encounter
--- OUTSIDE RECORDS SUMMARY | 2022-06-30 08:33 | XMS_ITS | Encounter Summary ---
:1960 Author Organization [facility] Address [address] [place] [address] Care Team Providers Name Role Phone Unavailable Primary Care Provider Unavailable Encounter Details Date Type Department Care Team Description 07/09/2014 Hospital Encounter HX [facility] Shana John M.D. [address] [facility], [address] [place], [place] [address] (Wo rk) Social [...] or relatives? How often do you attend mandaeism or shinto More than 4 time s per year 02/02/2021 services? Do you belong to any clubs or organizations No 02/02/2021 such as mandaeism groups, unions, fraternal or athletic groups, or [...] Sign Reading Time Taken Comments Blood Pressure 100/66 07/09/2014 4:02 PM CDT Pulse 68 07/09/2014 4:02 PM CDT Temperature - - Respiratory Rate 16 07/09/2014 4:02 PM CDT Oxygen Saturation - - Inhaled Oxygen Concentration - - Weight 85.5 kg (188 lb 7.9 oz) 07/09/2014 4:02 PM CDT Height 179 cm (5' 10.47) 07/09/2014 3:54 PM CDT Body Mass Index 26.68 07/09/2014 3:54 PM CDT documented in this encounter Medications [...] (OMEGA 3-6-9 FATTY mouth daily. ACIDS ORAL) [id number]-Hb-bbfy-mine Take 1 tablet by mouth 0 01/14/2010 rals tablet daily. UNABLE TO FIND daily. Amberen 0 09/30/2013 documented as of this encounter Progress Notes Toni John M.D. - 07/09/2014 5:18 PM CDT Clinic Progress Note CHIEF COMPLAINT/REASON FOR VISIT full skin exam. Family Hx of skin cancer HISTORY OF PRESENT ILLNESS oily skin- since a teen. She has been on spironolactone and BenzaClin for oily skin past. She reports dry and cracking redness of the ears. Also, her scalp itches had a Moderately atypical mole on her left lower leg removed. Her father had melanoma. MEDICATIONS atorvastatin 10 mg oral tablet, 10 mg, 1 tab(s), PO, Bedtime, 3 refills B-Complex 50, 1 tab(s), PO, Daily Calcium 600+D, 1 tab(s), PO, 3xDay Fish Oil 1000 mg oral capsule, 1,000 mg, 1 cap(s), PO, Daily Floxin Otic 0.3% otic solution, 5 drop(s), Ear(Right), 2xDay, 0 refills, Not taking ketoconazole 2% topical shampoo, 1 wayne, Topical, 2xWeek, 0 refills magnesium citrate, 300 mL, PO, Once MetroLotion 0.75% topical lotion, 1 wayne, Topical, 2xDay, 0 refills Misc Prescription, amberen, Daily verapamil 180 mg/24 hours oral capsule, extended release, 180 mg, 1 cap(s), for Reynaud's disease, PO, Daily, 3 refills Vitamin B Complex oral tablet, 1 tab(s), PO, Daily ALLERGIES NKA PAST MEDICAL HISTORY Chronic Hypercholesterolemia 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 Nodule Lung Nodule Thyroid NOS Perimenopausal Raynaud's disease Varicose veins Historical Abnormal Pap smear of cervix with low-grade squamous intraepithelial lesion PROCEDURES/SURGICAL HISTORY CT scan (04/24/2014), Colonoscopy, flexible, proximal to [...] must include the following: Cholesterol, serum, total (86044) Lipoprotein, direct measurement, high density cholesterol (HDL cholesterol) (43496) Triglycerides (36514). (01/15/2010), Varicose vein stripping (03/30/2006), Ovarian cystectomy (03/30/1987). SOCIAL HISTORY Date Time: 07/09/2014 16:02 Tobacco: Smoking Status: Never smoker Exposure: Other: Never Alcohol: Use: No Results Found Recreational Drugs: Use: None Type: No Results Found FAMILY HISTORY Mother ( at 69 year(s)):Positive: Brain tumor; Hyperlipidemia Father:Positive: Skin cancer Sister: Negative: Brother: Negative: Sister: Negative: Brother: Negative: IMMUNIZATIONS --> SYSTEMS REVIEW otherwise negative VITAL SIGNS T: 37.6 ??C (Core) HR: 68 RR: 16 BP: 100/66 HT: 179 cm WT: 85.5 kg PHYSICAL EXAMINATION General: No acute distress Eyes- no abnormal pigmentation Oropharnyx- no oral lesions or changes in pigmentation Skin: Full skin check today of the scalp, face, neck, chest, breasts, back, arms, legs, buttocks, groin, hands and feet. Several scattered Seborrheic Keratoses with classic stuck on/waxy appearances Nose- nirmal hyperplasia- large pores scalp- flakey IMPRESSION/REPORT/PLAN Dermatitis Seborrheic NOS 1. Recheck scalp and face- 3-6 months. 2. Yearly skin checks- Sunblock spf 30 every 2 hours to skinwhile in the sun. moderately atypical mole left lower leg- Orders: ketoconazole topical, 1 wayne, Topical, 2xWeek, # 120 mL, 0 Refill(s), Maintenance, Pharmacy: [facility] [id number] metroNIDAZOLE topical, 1 wayne, Topical, 2xDay, # 60 mL, 0 Refill(s), Maintenance, Pharmacy: [facility] [id number] Billing Diagnoses --> Electronically Signed By: TONI JOHN MD On: 07/09/2014 05:21 PM [facility] Document Id: [id number] documented in this encounter Nursing Notes Toni John M.D. - 07/09/2014 4:33 PM CDT Ambulatory Patient Education The following Patient Education Materials have been given to the patient: Patient Education Materials: Oncology Recognizing Skin Cancer Oncology Recognizing Skin Cancer Doing monthly skin checkups is the best way to find new biswas or skin changes. During your skin checkups, be sure to follow the ABCDEs of skin checks. This means checking moles or growths for Asymmetry, Border, Color, Diameter, and Evolving (changing). Note, too, if your growths bleed, itch, or are painful. The ABCDEs of Skin Checks Check your moles or growths for signs of melanoma using ABCDE: ?? Asymmetry: the sides of the mole or growth dont match ?? Border: the edges are ragged, notched, or blurred ?? Color: the color within the mole or growth varies ?? Diameter: the mole or growth is larger than 6 mm (size of a pencil eraser) ?? Evolving: the size, shape, or color of the mole or growth is changing (evolving is not shown below.) Whos At Risk? Anyone can get skin cancer. But you are at greater risk if you have: ?? Fair skin, light-colored hair, or light-colored eyes ?? Many moles on your skin ?? A history of sunburns from sunlight or tanning beds ?? A family history of skin cancer ?? A history of exposure to radiation or chemicals ?? A weakened immune system Also, a personal history of skin cancer puts you at risk for recurring skin cancer. How to Check Your Skin Do your monthly skin checkups in front of a full-length mirror. Check all parts of your body, including your: ?? Head (ears, face, neck, and scalp) ?? Torso (front, back, and sides) ?? Arms (tops, undersides, upper, and lower) ?? Hands (palms, backs, and fingers) ?? Buttocks and genitals ?? Legs (front, back, and sides) ?? Feet (tops, soles, toes, and between toes) If you have a lot of moles, take digital photos of them each month. Make sure to take photos both upclose and from a distance. These can help you see if any moles change lead time. When to Seek Medical Treatment Most skin changes are not cancer. But if you see any changes in your skin, call your doctor right away. Only he or she can diagnose a problem. If you have skin cancer, seeing your doctor can be the first step toward getting the treatment that could save your life. ?? [phone], [place] [address]. All rights reserved. This information is not intended as a substitute for professional medical care. Always follow your healthcare professional's instructions. This document has images extracted. Please consider using [address] for all your patient education needs. Source: [facility] POWERCHART Document Id: [id number] documented in this encounter Miscellaneous Notes Miscellaneous - Toni John M.D. - 07/09/2014 4:33 PM CDT Ambulatory Patient Summary [place] [address] [facility] [place] [id number] Visit Information Name: YAMEL MARCELO [facility] Number: [id number] Current Date: 07/09/2014 16:33:49 Physicians Attending Provider: TONI JOHN MD Primary [...] 2 times a week New Routed to [address] [phone] magnesium citrate (magnesium citrate) 300 Milliliter, Oral, once metroNIDAZOLE topical (MetroLotion 0.75% topical lotion) 1 wayne, Topical, two times a day New Routed to [address] [phone] Mis Prescription ([facility] Prescription) amberen, once a day multivitamin (Vitamin B Complex oral tablet) 1 Tablet(s), Oral, once a day multivitamin (B-Complex 50) 1 Tablet(s), Oral, once a day *ofloxacin otic (Floxin Otic 0.3% otic solution) 5 [...] the Following Medications: Medication list as of 07-09-14 16:33 Attention: If you have any medications at [...] Electronically Signed By: TONI JOHN MD Signed On:09-JUL-2014 16:32:26 Your Allergies & Intolerances Substance Reaction Symptoms [...] CT Your Upcoming Appointments Date Time Location Provider 07/22/2014 08:00 [facility] Daniela LUNA, Cyril Rudolph Attention: Contact your local Clinic if further appointment detail needed. Recognizing Skin Cancer Doing monthly skin checkups is the best way to find new biswas or skin changes. During your skin checkups, be sure to follow the ABCDEs of skin checks. This means checking moles or growths for Asymmetry, Border, Color, Diameter, and Evolving (changing). Note, too, if your growths bleed, itch, or are painful. The ABCDEs of Skin Checks Check your moles or growths for signs of melanoma using ABCDE: ?? Asymmetry: the sides of the mole or growth dont match ?? Border: the edges are ragged, notched, or blurred ?? Color: the color within the mole or growth varies ?? Diameter: the mole or growth is larger than 6 mm (size of a pencil eraser) ?? Evolving: the size, shape, or color of the mole or growth is changing (evolving is not shown below.) Whos At Risk? Anyone can get skin cancer. But you are at greater risk if you have: ?? Fair skin, light-colored hair, or light-colored eyes ?? Many moles on your skin ?? A history of sunburns from sunlight or tanning beds ?? A family history of skin cancer ?? A history of exposure to radiation or chemicals ?? A weakened immune system Also, a personal history of skin cancer puts you at risk for recurring skin cancer. How to Check Your Skin Do your monthly skin checkups in front of a full-length mirror. Check all parts of your body, including your: ?? Head (ears, face, neck, and scalp) ?? Torso (front, back, and sides) ?? Arms (tops, undersides, upper, and lower) ?? Hands (palms, backs, and fingers) ?? Buttocks and genitals ?? Legs (front, back, and sides) ?? Feet (tops, soles, toes, and between toes) If you have a lot of moles, take digital photos of them each month. Make sure to take photos both upclose and from a distance. These can help you see if any moles change lead time. When to Seek Medical Treatment Most skin changes are not cancer. But if you see any changes in your skin, call your doctor right away. Only he or she can diagnose a problem. If you have skin cancer, seeing your doctor can be the first step toward getting the treatment that could save your life. ?? [phone] [facility], [address] [place] [address], [place] [address]. All rights reserved. This information is not intended as a substitute for professional medical care. Always follow your healthcare professional's instructions. Your Goals/Additional instructions: 1. Recheck scalp and face- 3-6 months. 2. Yearly skin checks- Sunblock spf 30 every 2 hours to skin while in the sun. This document has images extracted. Please consider using [address] for all your patient education needs. Source: [facility] POWERCHART Document Id: [id number] Miscellaneous - Toni John M.D. - 07/09/2014 4:33 PM CDT Ambulatory Discharge Medication List [address] [place], [place] [phone] Visit Information Name: YAMEL MARCELO [facility] Number: [id number] Visit Date: 07/09/2014 16:33:48 Attending Provider: TONI JOHN MD Primary Care Provider: FELIX SANTOS [employer] YAMEL MARCELO has been given the following [...] 2 times a week New Routed to [address] [phone] magnesium citrate (magnesium citrate) 300 Milliliter, Oral, once metroNIDAZOLE topical (MetroLotion 0.75% topical lotion) 1 wayne, Topical, two times a day New Routed to [address] [phone] [facility] Prescription ([facility] Prescription) amberen, once a day multivitamin (Vitamin B Complex oral tablet) 1 Tablet(s), Oral, once a day multivitamin (B-Complex 50) 1 Tablet(s), Oral, once a day *ofloxacin otic (Floxin Otic 0.3% otic solution) 5 [...] the Following Medications: Medication list as of 07-09-14 16:33 Attention: If you have any medications at [...] Electronically Signed By: TONI JOHN MD Signed On:09-JUL-2014 16:32:26 Additional Information: Source: [facility] POWERCHART Document Id: [id number] Miscellaneous - Ramila Paul L.P.N. - 07/09/2014 4:02 PM CDT Adult Chronic Care Nurse Intake/History Adult Chronic Care Nurse Intake/History Entered On: 07/09/2014 16:04 CDT Performed On: 07/09/2014 16:02 CDT by RAMILA APUL Intake Temperature Core : 37.6 DegC(Converted to: 99.7 DegF) RAMILA PAUL - 07/09/2014 16:06 CDT Chief Complaint : full skin exam. Family Hx of skin cancer Peripheral Pulse Rate : 68 /min Respiratory Rate : 16 /min Systolic Blood Pressure : 100 mmHg Diastolic Blood Pressure : 66 mmHg NIBP Mean : 77 mmHg BP Location : Right upper extremity Blood Pressure Cuff Size : Regular Actual Weight : 85.5 kg(Converted to: 188 lb 8 oz) Weight Source : Standing scale Dosing Weight Clinic : 85.5 kg RAMILA PAUL - 07/09/2014 16:02 CDT General Info Information Given By : Patient Languages : Belgian Is Patient Female and 13-50 no hysterectomy : No RAMILA PAUL - 07/09/2014 16:02 CDT Subjective Pain Symptoms : No RAMILA PAUL - 07/09/2014 16:02 CDT Dependent Habits Tobacco Use/Currently Using : No Exposure to Tobacco Smoke : Other: Never Smoking Status : Never smoker RAMILA PAUL - 07/09/2014 16:02 CDT Caffeine Use Grid Caffeine Use : Current Type : Soft drinks Frequency : Occasionally RAMILA PAUL - 07/09/2014 16:02 CDT Recreational Drug Use Grid Drug Use : None RAMILA PAUL - 07/09/2014 16:02 CDT Source: [facility] Document Id: [id number] CDT!3 documented in this encounter Plan of Treatment Not on filedocumented as of this encounter Visit Diagnoses Not on filedocumented in this encounter
--- OUTSIDE RECORDS SUMMARY | 2022-06-30 08:33 | XMS_ITS | Encounter Summary ---
:1960 Author Organization [facility] Address [address] [place] [address] Care Team Providers Name Role Phone Unavailable Primary Care Provider Unavailable Encounter Details Date Type Department Care Team Description 07/22/2014 Hospital Encounter HX [facility] FAMILY[facility]A Myles Suarez M.D. [address] [place], [place] [address] (Wo rk) Social History Tobacco Use Types [...] or relatives? How often do you attend spiritism or rastafari More than 4 time s per year 02/02/2021 services? Do you belong to any clubs or organizations No 02/02/2021 such as spiritism groups, unions, fraternal or athletic groups, or [...] Reading Time Taken Comments Blood Pressure 110/60 07/22/2014 8:01 AM CDT Pulse 90 07/22/2014 8:01 AM CDT Temperature - - Respiratory Rate - - Oxygen Saturation - - Inhaled Oxygen Concentration - - Weight 85 kg (187 lb 6.3 oz) 07/22/2014 8:01 AM CDT Height 179 cm (5' 10.47) 07/22/2014 8:01 AM CDT Body Mass Index 26.53 07/22/2014 8:01 AM CDT documented in this encounter Medications [...] (OMEGA 3-6-9 FATTY mouth daily. ACIDS ORAL) bqyahwndjjeh-Iu-wdkh-mine Take 1 tablet by mouth 0 01/14/2010 rals tablet daily. UNABLE TO FIND daily. Amberen 0 09/30/2013 documented as of this encounter H&P Notes Cyril Suarez M.D. - 07/22/2014 7:56 AM CDT [id number] A 54-year-old female, referred by Dr. Freeman for preoperative evaluation and approval prior to proposed hysterectomy July 29, 2014, at [facility]. This nulliparous female has, as of this year, undergone hysteroscopy, dilatation and curettage, endometrial polypectomy and endometrial ablation for menorrhagia. Return biopsies have shown endometrial polyp on pathology showing complex hyperplasia without atypia in fragments of the endometrial polyp and in the background endometrium there was focal simple mucinous papillary proliferation (NUICCI type A lesion) and due to the inability to follow this given the history of endometrial ablation, hysterectomy was recommended and accepted per patient. She had deferred hysterectomy during initial recommendation around January of thisyear until the summer was over. PAST MEDICAL/SURGICAL HISTORY PAST MEDICAL HISTORY: 1. Abnormal Pap smear with low-grade squamous intraepithelial lesion noted March 2010. 2. History of nontoxic single thyroid goiter. 3. Notation of pulmonary nodule, right upper lobe, with benign features on CT appearing to be calcified. Current plan is to repeat CT at 3 and then 6-month intervals to ensure stability. 4. Raynaud's syndrome. PAST SURGICAL HISTORY: 1. Status post colposcopy 2009. 2. Status post ovarian cystectomy in March of 1987. 3. Status post excision localized skin cancer January 2010. 4. Status post varicose vein stripping March 2006. 5. Status post colonoscopy June 14, 2012, with recommendation to rescope based on surveillance andfindings in 5 years. FAMILY HISTORY 1. Mother with brain tumor. 2. Father with a history of skin cancer. 3. Mother with history of hyperlipidemia. MEDICATIONS 1. Lipitor 10 mg by mouth at bedtime. 2. Ketoconazole topical liquid 1 application applied twice a week to the scalp. 3. Metronidazole lotion 0.75% strength applied twice a day. 4. Floxin otic solution 5 drops to the ear twice a day. 5. Verapamil 180 mg capsule daily as needed for Raynaud's phenomenon. 6. Calcium and vitamin D supplement. 7. Magnesium citrate as needed for constipation. 8. B complex vitamin daily. 9. Brewer-3 polyunsaturated fat 1000 mg daily. ALLERGIES No known drug allergies. SYSTEMS REVIEW GENERAL: Patient baseline medical status is noted for patient claiming to be in state of generally good baseline health. Review of systems today include the following: EYES: Patient wears contacts. Sheis told these on day of surgery and to use her regular glasses. EAR, NOSE, MOUTH, THROAT: Negative although there is some suspicion that the patient may benefit from a sleep apnea assessment. PULMONARY: Negative. CARDIOVASCULAR: Negative. GASTROINTESTINAL: Negative. NEUROLOGIC: Negative. MUSCULOSKELETAL: Some question in the past regarding whether or not the patient may qualify diagnostically for fibromyalgia. UROLOGIC: Negative. HEMATOLOGIC: Negative. PSYCHIATRIC: Negative. The patient denies any personal history of bleeding tendencies or prior history of blood clots. She also denies any family history of the same. The patient denies any personal or family history of adverse reaction to general anesthesia. Finally, patient also, when questioned, specifically denies any history of allergies to iodine/shellfish, latex, or adhesives. PHYSICAL EXAMINATION VITAL SIGNS: Patient afebrile at 37.4 degrees centigrade. Heart rate 90 beats per minute and regular. Blood pressure 110/60 for this patient with room air oxygen saturation at 98%, standing 179 cm, weighing 85 kg.Patient is a nonuser of tobacco. Total sleep apnea scoring done for this patient was a 1.0 today. HEENT: Head: Normocephalic and atraumatic. Pupils equal and reactive to light and accommodation. Posterior oropharynx is somewhat narrow due to a long hard palate, though she does not have any apparenttonsillar hypertrophy. Tongue is midline without lesion or deviations from midline. NECK: Supple. No palpable thyroid. No lymphadenopathy. CHEST: Lungs clear to auscultation. HEART: Regular rate and rhythm. Normal 1st and 2nd heart sounds are heard. No murmur or rub is appreciated. ABDOMEN: Soft, nontender, nondistended. There is no suprapubic fullness. There is no CVA tenderness. EXTREMITIES: There is no clubbing, cyanosis or edema. Capillary refill between 1 and 2 seconds throughout both upper and lower extremities, which is well within normal limits. NEUROLOGIC: Patient aware and oriented x3. Cranial nerves II through XII grossly intact and nonfocal. PSYCHIATRIC: Patient is euthymic. No psychomotor agitation present. There are no delusions or hallucinations. The patient does not express any violent ideation. Her insight is good. DIAGNOSTICS A 12-lead EKG performed for patient today; EKG noted to be in normal sinus rhythm, rate of 73 beats per minute with a normal corrected QT interval. There are no EKG changes suggestive for any acute, subacute or chronic coronary ischemia. IMPRESSION/REPORT/PLAN A 54-year-old female here with the following active medical issues: 1. Normal preoperative exam. Patient may proceed with proposed hysterectomy including up to the use of general anesthesia as proposed by Dr. Rody Freeman of [facility] at [facility] July 29, 2014. Patient has in the past used aspirin for headaches but has withheld aspirin for the last week and will continue to do so at this point. Patient otherwise to follow up postoperatively as directed. 2. At patient request, she receives an annual flu vaccination today, which was applied and toleratedwithout complication. Cyril Suarez M.D./rui Electronically Signed By: CYRIL SUAREZ MD On: 07/22/2014 10:17 AM Source: [facility] MHSDOLBEYNONRADSYS Document Id: [id number] documented in this encounter Nursing Notes Cyril Suarez M.D. - 07/22/2014 8:38 AM CDT Ambulatory Patient Education The following Patient Education Materials have been given to the patient: Patient Education Materials: ED/Trauma Pain Management ED/Trauma Pain Management Special Note: Be sure to follow any specific post-op instructions from your surgeon or nurse. Once youre home, you may have some pain, since even minor surgery causes swelling and breakdown of tissue. When it comes to effective pain management, the tips you learned in the hospital also work at home. To get the best pain relief possible, remember these points: Use your medication only as directed ?? If your pain is not relieved or if it gets worse, call your doctor. ?? If pain lessens, try taking your medication less often. Remember that medications need time to work ?? Most pain relievers taken by mouth need at least 20-30 minutes to take effect. ?? Take pain medication at regular times as directed. Dont wait until the pain gets bad to take it. Time your medication ?? Try to time your medication so that you take it before beginning an activity, such as dressing orsitting at the table for dinner. ?? Taking your medication at night may help you get a good nights rest. Eat lots of fruit and vegetables ?? Constipation is a common side effect with some pain medications. Eating fruit and vegetables can help. ?? Drink lots of fluids. ?? Talk to your doctor about taking a preventive bowel regiment. Avoid drinking alcohol while taking pain medication ?? Mixing alcohol and pain medication can cause dizziness and slow your respiratory system. It can even be fatal. ?? Avoid driving or operating machinery while taking pain medication. Avoid driving or operating machinery while taking pain medications that can cause drowsiness. ?? 4515-7559 [facility], [address] [place] [address], [place] [address]. All rights reserved. This information is not intended as a substitute for professional medical care. Always follow your healthcare professional's instructions. This document has images extracted. Please consider using [employer] for all your patient education needs. Source: [facility] POWERCHART Document Id: [id number] Cyril Suarez M.D. - 07/22/2014 8:38 AM CDT Ambulatory Patient Education The following Patient Education Materials have been given to the patient: Patient Education Materials: ED/Trauma Pain Management ED/Trauma Pain Management Special Note: Be sure to follow any specific post-op instructions from your surgeon or nurse. Once youre home, you may have some pain, since even minor surgery causes swelling and breakdown of tissue. When it comes to effective pain management, the tips you learned in the hospital also work at home. To get the best pain relief possible, remember these points: Use your medication only as directed ?? If your pain is not relieved or if it gets worse, call your doctor. ?? If pain lessens, try taking your medication less often. Remember that medications need time to work ?? Most pain relievers taken by mouth need at least 20-30 minutes to take effect. ?? Take pain medication at regular times as directed. Dont wait until the pain gets bad to take it. Time your medication ?? Try to time your medication so that you take it before beginning an activity, such as dressing orsitting at the table for dinner. ?? Taking your medication at night may help you get a good nights rest. Eat lots of fruit and vegetables ?? Constipation is a common side effect with some pain medications. Eating fruit and vegetables can help. ?? Drink lots of fluids. ?? Talk to your doctor about taking a preventive bowel regiment. Avoid drinking alcohol while taking pain medication ?? Mixing alcohol and pain medication can cause dizziness and slow your respiratory system. It can even be fatal. ?? Avoid driving or operating machinery while taking pain medication. Avoid driving or operating machinery while taking pain medications that can cause drowsiness. ?? [id number] [facility], [address] [place] [address]. All rights reserved. This information is not intended as a substitute for professional medical care. Always follow your healthcare professional's instructions. This document has images extracted. Please consider using [employer] for all your patient education needs. Source: [facility] POWERCHART Document Id: [id number] documented in this encounter Miscellaneous Notes Miscellaneous - Alberto Andrade L.P.N. - 07/22/2014 10:42 AM CDT pre op From: ALBERTO ANDRADE ( Daniela Nurse) Sent: 07/22/2014 10:42:49 CDT Subject: pre op Pre-op for 07/29/14 hysterectomy has been faxed. Source: [facility] POWERCHART Document Id: [id number] Miscellaneous - Cyril Suarez M.D. - 07/22/2014 8:38 AM CDT Ambulatory Patient Summary [address] [id number] Visit Information Name: AMANDA MARCELO [facility] Number: [id number] Current Date: 07/22/2014 08:38:14 Physicians Attending Provider: CYRIL SUAREZ MD Primary Care Provider: FELIX SANTOS CNP AMANDA MARCELO has been given the following list of follow-up instructions, medication list, andpatient education materials: Follow-up Instructions With: Address: When: Follow up with primary care provider , only if needed Comments: Your Medications Here is a list of [...] 1 wayne, Topical, two times a day Misc Prescription (Misc Prescription) amberen, once a [...] the Following Medications: Medication list as of 07-22-14 08:38 Attention: If you have any medications at home that are not on this list, DO NOT take them until youcontact your provider for clarification. Give a copy of your medication list to your primary care provider. Update your medication list any time medications or doses are changed and carry your medication list at all times in case of emergency. Electronically Signed By: CYRIL SUAREZ MD Signed On:22-JUL-2014 08:37:08 Your Allergies & Intolerances Substance Reaction Symptoms [...] Per chest CT Dermatitis Seborrheic NOS Active Your Upcoming Appointments Date Time Location Provider No Appointments found Attention: Contact your local Clinic if further appointment detail needed. Pain Management Special Note: Be sure to follow any specific post-op instructions from your surgeon or nurse. Once youre home, you may have some pain, since even minor surgery causes swelling and breakdown of tissue. When it comes to effective pain management, the tips you learned in the hospital also work at home. To get the best pain relief possible, remember these points: Use your medication only as directed ?? If your pain is not relieved or if it gets worse, call your doctor. ?? If pain lessens, try taking your medication less often. Remember that medications need time to work ?? Most pain relievers taken by mouth need at least 20--30 minutes to take effect. ?? Take pain medication at regular times as directed. Dont wait until the pain gets bad to take it. Time your medication ?? Try to time your medication so that you take it before beginning an activity, such as dressing orsitting at the table for dinner. ?? Taking your medication at night may help you get a good nights rest. Eat lots of fruit and vegetables ?? Constipation is a common side effect with some pain medications. Eating fruit and vegetables can help. ?? Drink lots of fluids. ?? Talk to your doctor about taking a preventive bowel regiment. Avoid drinking alcohol while taking pain medication ?? Mixing alcohol and pain medication can cause dizziness and slow your respiratory system. It can even be fatal. ?? Avoid driving or operating machinery while taking pain medication. Avoid driving or operating machinery while taking pain medications that can cause drowsiness. ?? 5734-1472 [place] [address]. All rights reserved. This information is not intended as a substitute for professional medical care. Always follow your healthcare professional's instructions. Your Goals/Additional instructions: This document has images extracted. Please consider using [employer] for all your patient education needs. Source: [facility] POWERCHART Document Id: [id number] Miscellaneous - Cyril Suarez M.D. - 07/22/2014 8:38 AM CDT Ambulatory Discharge Medication List [address] [id number] Visit Information Name: AMANDA MARCELO [facility] Number: [id number] Visit Date: 07/22/2014 08:38:12 Attending Provider: CYRIL SUAREZ MD Primary Care Provider: FELIX SANTOS CNP [...] 1 wayne, Topical, two times a day Misc Prescription (Misc Prescription) amberen, once a [...] the Following Medications: Medication list as of 07-22-14 08:38 Attention: If you have any medications at home that are not on this list, DO NOT take them until youcontact your provider for clarification. Give a copy of your medication list to your primary care provider. Update your medication list any time medications or doses are changed and carry your medication list at all times in case of emergency. Electronically Signed By: CYRIL SUAREZ MD Signed On:22-JUL-2014 08:37:08 Additional Information: Source: [facility] POWERCHART Document Id: [id number] Miscellaneous - Alberto Andrade L.P.N. - 07/22/2014 8:03 AM CDT Obstructive Sleep Apnea Obstructive Sleep Apnea Entered On: 07/22/2014 8:05 CDT Performed On: 07/22/2014 8:03 CDT by ALBERTO ANDRADE GREGORY Screening Known Obstructive Sleep Apnea : No - NOT diagnosed with GREGORY ALBERTO ANDRADE - 07/22/2014 8:03 CDT GREGORY Assessment Do you have high blood pressure or have you been told to take medication for high blood pressure? 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 Freeman. Temperature Core : 37.4 DegC(Converted to: 99.3 DegF) Peripheral Pulse Rate : 90 /min Heart Rhythm : Regular Systolic Blood Pressure : 110 mmHg Diastolic Blood Pressure : 60 mmHg NIBP Mean : 77 mmHg BP Location : Left upper extremity Blood Pressure Cuff Size : Regular SpO2 : 98 % Oxygen Therapy : Room air Height : 179 cm(Converted to: 5 ft 10 inch(es), 70 inch(es)) Actual Weight : 85.0 kg(Converted to: 187 lb 6 oz) Weight Source : Standing scale Dosing Weight Clinic : 85 kg Clinic BSA : 2.06 Body Mass Index : 26.53 kg/m2 ALBERTO ANDRADE - 07/22/2014 8:01 CDT General Info Information Given By : Patient Preferred Communication Mode : Verbal Languages : Botswanan Is Patient Female and 13-50 no hysterectomy : No ALBERTO ANDRADE - 07/22/2014 8:01 CDT Subjective Pain Symptoms : No ALBERTO ANDRADE - 07/22/2014 8:01 CDT Dependent Habits Tobacco Use/Currently Using : No Exposure to Tobacco Smoke : Other: Never Smoking Status : Never smoker ALBERTO ANDRADE - 07/22/2014 8:01 CDT Caffeine Use Grid Caffeine Use : Current Type : Soft drinks Frequency : Occasionally ALBERTO ANDRADE - 07/22/2014 8:01 CDT Recreational Drug Use Grid Drug Use : None ALBERTO ANDRADE - 07/22/2014 8:01 CDT Source: [facility] POWERCHART Document Id: [id number] CDT!38 documented in this encounter Plan of Treatment Not on filedocumented as of this encounter Procedures Procedure Name Priority Date/Time Associated Diagnosis Comme nts AUTOMATED Routine 07/22/2014 8:59 AM Results f or this DIFFERENTIAL, B CDT procedure ar e in the results section. CBC WITH Routine 07/22/2014 8:59 AM Results f or this DIFFERENTIAL, B CDT procedure ar e in the results section. documented in this encounter Results Automated Differential (07/22/2014 8:59 AM CDT) P athologist Signature Absolute 2.55 1.70 - POWERCHART Neutrophils 7.00 109L Lymphocytes 1.16 0.90 - POWERCHART 2.90 X109L Monocytes 0.53 0.30 - POWERCHART 0.90 X109L Eosinophils 0.11 0.05 - POWERCHART 0.50 X109L Absolute 0.02 0.00 - POWERCHART Basophil 0.30 X109L Specimen Anatomical Collection Method Collection Time Receive d Time (Source) Location / / Volume Laterality Blood 07/22/2014 8:59 AM 4 8:59 CDT AM CDT Cyril Suarez M.D. LAB BLOOD ADD-ON Performing Organization Address City/State/ZIP Code Phon e Number POWERCHART (ABNORMAL) CBC with Differential (07/22/2014 8:59 AM CDT) Analysis Performed At Patho logist Time Signature Leukocytes 4.4 3.4 - 10.5 POWERCHART X109L Erythrocytes 4.20 3.90 - POWERCHART 5.03 [id number] Hemoglobin 12.8 12.0 - POWERCHART 15.5 GDL Hematocrit 39.2 34.9 - POWERCHART 44.5 MCV 93.3 82.0 - POWERCHART 98.0 FL Platelet Count 144 (L) 150 - 450 POWERCHART X109L HX RDW 12.7 11.9 - POWERCHART 15.5 HXDifferential? Auto POWERCHART Specimen (Source) Anatomical Collection Method Collection Time Re ceived Time Location / / Volume Laterality Blood 07/22/2014 8:59 AM CDT Cyril Suarez M.D. LAB BLOOD ADD-ON Performing Organization Address City/State/ZIP Code Phon e Number POWERCHART documented in this encounter Visit Diagnoses Not on filedocumented in this encounter
--- OUTSIDE RECORDS SUMMARY | 2022-06-30 08:34 | XMS_ITS | Encounter Summary ---
:1960 Author Organization [facility] Address [address] [place] [address] Care Team Providers Name Role Phone Unavailable Primary Care Provider Unavailable Encounter Details Date Type Department Care Team Description 04/05/2012 Hospital Encounter HX [facility] ULTRASOUN Rula Resendiz, PEDIATRIC ALLERGIST, C.N.P. [address] [place] [address] (Wo rk) Social History Tobacco [...] How often do you attend caodaism or advent More than 4 time s per year [...] Date calcium carbonate-vitamin Take 1 tablet by 0 03/17 D3 (CALCIUM 600 + D,3,) mouth daily. 600 mg calcium- 200 unit capsule cmzlaserfeso-Wa-fazw-mineral engineer Take 1 tablet by 0 10/2009 als tablet mouth daily. documented as of this encounter Plan of Treatment Not on filedocumented as of this encounter Procedures Procedure Name Priority Date/Time Associated Comments Diagnosis BI ULTRASOUND BREAST Routine 04/05/2012 2:32 PM R esults for this FOCUSED RIGHT CDT procedure are in the results section. documented in this encounter Results BI Ultrasound Breast Focused Right (04/05/2012 2:32 PM CDT) Anatomical Region Laterality Modality Breast Right Ultrasound Specimen (Source) Anatomical Collection Method Collection Time Re ceived Time Location / / Volume Laterality 04/05/2012 2:32 PM CDT Narrative 04/05/2012 2:52 PM CDT History: New right breast mass, persiste nt on diagnostic mammography. Technique: Grayscale and Doppler imaging of the lateral right breast was performed at the site of the mammogr aphic abnormality. Findings: An 11 mm anechoic simple cyst with excellent through transmission and absence of Doppler vasc ularity explains the mammograms. There is no sonographic evid ence of a solid mass. There is no shadowing or abnormal Doppler bloo d flow. No other definite concerning findings. Impression: BIRADS 2, benign findings. R esume annual mammography. Procedure Note Jerman Calvillo M.D. / Provider, Baldemar cordoba M.D. - 03/08/2017 History: New right breast mass, persiste nt on diagnostic mammography. Technique: Grayscale and Doppler imaging of the lateral right breast was performed at the site of the mammogr aphic abnormality. Findings: An 11 mm anechoic simple cyst with excellent through transmission and absence of Doppler vasc ularity explains the mammograms. There is no sonographic evid ence of a solid mass. There is no shadowing or abnormal Doppler bloo d flow. No other definite concerning findings. Impression: BIRADS 2, benign findings. R esume annual mammography. August Nam Jr., RBridgetMKarolS. IMG BI PROCEDURES documented in this encounter Visit Diagnoses Not on filedocumented in this encounter
--- OUTSIDE RECORDS SUMMARY | 2022-06-30 08:34 | XMS_ITS | Encounter Summary ---
:1960 Author Organization [facility] Address [address] [place] [address] Care Team Providers Name Role Phone Unavailable Primary Care Provider Unavailable Encounter Details Date Type Department Care Team Description 04/04/2012 Hospital Encounter HX [facility] MyrRula donovan, SENIOR SALES ASSISTANT, C.N.P. [address] [place] [address] (Wo rk) Social History Tobacco [...] How often do you attend religious or methodist More than 4 time s [...] Sign Reading Time Taken Comments Blood Pressure 112/64 04/04/2012 10:47 AM CDT Pulse 76 04/04/2012 10:47 AM CDT Temperature - - Respiratory Rate 16 04/04/2012 10:47 AM CDT Oxygen Saturation - - Inhaled Oxygen Concentration - - Weight 81.5 kg (179 lb 10.8 oz) 04/04/2012 10:47 AM CDT Height 176.5 cm (5' 9.49) 04/04/2012 10:47 AM CDT Body Mass Index 26.16 04/04/2012 10:47 AM CDT documented in this encounter Medications at Time of Discharge Medication Sig Dispensed Refills Start Date End Date calcium carbonate-vitamin Take 1 tablet by 0 03/17 D3 (CALCIUM 600 + D,3,) mouth daily. 600 mg calcium- 200 unit capsule dbcpfbbcesyt-Um-estq-ampoule examiner Take 1 tablet by 0 10/2009 als tablet mouth daily. documented as of this encounter H&P Notes Felix Santos, ASHIA, CKarolN.P. - 04/04/2012 12:00 AM CDT [id number] CHIEF COMPLAINT/ REASON FOR VISIT 1. Health care maintenance. 2. History of abnormal Pap smear. 3. Hypercholesterolemia. 4. Nosebleeds from right nostril. HISTORY OF PRESENT ILLNESS 1. Amanda is here for physical exam. She had mammogram performed this morning. She is fasting. Will check screening labs. 2. She is due for a Pap smear. She has had abnormal Pap smear in the past. 3. She has history of hypercholesterolemia. She is not currently on medication. She has been trying to work on diet. She is fasting. Will check lipids today. 4. Nosebleeds. She states she occasionally gets nosebleeds from the right nostril. It feels like it starts quite high up in the nose. She does not think her nose is really dry. Nosebleeds subside quickly. CURRENT MEDICATIONS See depart summary from today. ALLERGIES None. SYSTEMS REVIEW Positive for that mentioned in history of present illness and noted in the past medical history in the EMR. All other systems were reviewed and were negative. PAST MEDICAL / SURGICAL HISTORY PAST MEDICAL HISTORY 1. Abnormal Pap smear. 2. Hypercholesterolemia. 3. Menorrhagia. 4. Raynaud's disease. 5. Skin cancer. 6. Varicose veins. PAST SURGICAL HISTORY 1. Ovarian cystectomy. 2. Excision of skin cancer. 3. Varicose vein stripping. PREVENTIVE: Due for colonoscopy; message sent to Dr. Blas's office to call and schedule. She is up-to-date on pertussis immunization. SOCIAL HISTORY She is with six step-children and works at [employer]. FAMILY HISTORY Mother: at age 69; cause of brain cancer. Mother also had hyperlipidemia. Father and siblings: Healthy. VITAL SIGNS See EMR. PHYSICAL EXAM GENERAL: In general, the patient is a pleasant female appears her stated age. SKIN: Without lesion. EYES: PERRLA. EOMs intact. Fundi sharp discs. Conjunctiva and lids normal. ENT: Tympanic membranes clear bilaterally. Nasal mucosa without erythema or congestion. Nares clear bilaterally. No evidence of bleeding. Mouth without erythema or exudate. LYMPH NODES: [...] Soft, nontender, no palpable mass, no hepatosplenomegaly. RECTUM: Normal perirectal area without skin tags or external hemorrhoids. Internal examination reveals a smooth rectal vault, no tenderness. Good rectal tone. GENITALIA: Bartholin, urethra, [place]'s, vagina and cervix are without lesion. Pap smear done with spatula and cytobrush. Bimanual examination reveals uterus is midline, mobile, nontender. No adnexal masses. SPINE: Normal range of motion. No CVA tenderness. JOINTS: Normal range of motion. EXTREMITIES: Warm, dry, no cyanosis or peripheral edema. MENTAL: Alert and oriented times three. NEURO: Deep tendon reflexes are +2 and symmetrical. IMPRESSION/REPORT/PLAN 1. Health care maintenance. Encouraged to continue working on healthy diet and regular exercise program. 2. Abnormal Pap smear. Pap was performed today. I will contact her with results. 3. Hypercholesterolemia. Will check fasting lipids today and make recommendations accordingly. 4. Epistaxis. Recommend using a very tiny amount of Vaseline on a Q-tip to the inside of the nostril daily to see if that helps with nosebleeds; if not, will have her see ENT. KARIN/andres Signed Felix Santos, MSN, MENTAL HEALTH CASE MANAGER, CDE Family Nurse Practitioner Electronically Signed By: FELIX SANTOS CNP On: 04/10/2012 07:58 AM Source: [facility] MHSDOLBEYNONRADSYS Document Id: [id number] documented in this encounter Nursing Notes Shyla Greenfield R.N. - 05/09/2012 8:55 AM CDT Colonoscopy rescheduled DATE: 05-09-12 SCHEDULED FOR: Colonoscopy (rescheduled) AT [facility] WITH DR. BLAS DATE of Procedure: 06-14-12 TIME of Procedure: 9am PER: DR. PEGUERO ORDERS. Electronically Signed By: SHYLA GREENFIELD On: 05/09/2012 08:56 AM Source: [facility] POWERCHART Document Id: [id number] Shyla Greenfield R.N. - 04/30/2012 11:10 AM CDT Prior Authorization [facility] [place] [address] Referral Authorization: Procedure or visit authorized for: Colonoscopy-screening Referred by: Felix Santos Contact Location: [facility] Contact Referred to: Dr. Blas Contact Location: [facility] Contact No Authorization Needed: yes or ___x___ no If yes, Referral valid: From: To: Number of visits approved for: Authorized by: [facility] pre-certification web page. Contact Number: [phone] Date Authorized: 04-30-12 Reference Number: or ___x__ not applicable per Assistant Professor Of Biochemistry. Individual that received the Referral Authorization: RC Electronically Signed By: SHYLA GREENFIELD On: 04/30/2012 11:11 AM Source: [facility] [employer]ore A/S Document Id: [id number] Forrest Wallis L.P.N. - 04/05/2012 9:09 AM CDT Colonoscopy scheduled DATE: 04-05-12 SCHEDULED FOR: Colonoscopy AT [facility] WITH DR. BLAS DATE OF PROCEDURE: 05-10-12 TIME OF PROCEDURE: 8:15am PER: Felix Santos CNP / DR. PEGUERO ORDERS - PREP INSTRUCTIONS HAVE BEEN SENT TO THE PATIENT. - PATIENT ADVISED TO NOT TAKE ASPIRIN OR IBUPROFEN FOR 10 DAYS PRIOR TO THE SCHEDULED PROCEDURE. - INSURANCE REFFERAL DONE _X__YES ___NO - COPIES OF REFERRING HEALTHCARE PROVIDER NOTES SENT TO [facility]. Electronically Signed By: FORREST WALLIS On: 04/05/2012 09:10 AM Source: [facility] [employer] A/S Document Id: [id number] documented in this encounter Miscellaneous Notes Miscellaneous - Felix Santos APRN, C.N.PKarol - 04/11/2012 8:46 AM CDT Results Notification From: FELIX SANTOS CNP To: COLTON HOLM Sent: 04/11/2012 08:46:20 CDT ! Show up: 04/11/2012 13:46:20 [facility] Subject: Results Notification Actions: Notify patient of results Source: [facility] [employer] A[employer]S Document Id: [id number] Miscellaneous - Felix Santos APRN, C.N.P. - 04/05/2012 5:15 PM CDT Results Notification From: FELIX SANTOS CNP To: COLTON HOLM Sent: 04/05/2012 17:15:02 CDT ! Show up: 04/05/2012 22:15:02 [facility] Subject: Results Notification Actions: Notify patient of results Source: [facility] [employer] A/S Document Id: [id number] Electronically signed by Conversion, [facility] Spray Gun Striper [id number] at 03/18/2017 7:10 PM CDT Miscellaneous - Felix Santos APRN, C.N.P. - 04/04/2012 1:11 PM CDT Results Notification From: FELIX SANTOS CNP To: COLTON HOLM Sent: 04/04/2012 13:11:15 CDT ! Show up: 04/04/2012 18:11:15 [facility] Subject: Results Notification Actions: Notify patient of results Source: [facility] DigitingCHART Document Id: [id number] Electronically signed by Conversion, [facility] Spray Gun Striper [id number] at 03/18/2017 7:10 PM CDT Miscellaneous - Felix Santos APRN, C.N.P. - 04/04/2012 11:45 AM CDT Results Notification From: FELIX SANTOS CNP To: COLTON HOLM Sent: 04/04/2012 11:45:19 CDT ! Show up: 04/04/2012 16:45:19 [facility] Subject: Results Notification Actions: Notify patient of results Source: [facility] POWERCHART Document Id: [id number] Electronically signed by [facility] Spray Gun Striper [id number] at 03/18/2017 7:10 PM CDT Miscellaneous - Felix Santos APRN, C.N.P. - 04/04/2012 11:02 AM CDT Ambulatory Depart Summary [address] [address] Visit Information Name: AMANDA OSORIO Visit Date: 04/04/2012 11:02:34 Attending Provider: FELIX SANTOS CNP Primary Care Provider: FELIX SANTOS CNP AMANDA OSORIO has been given the following list of medications: Your Medications It is important to take your medications as directed. Use a pill box or chart to help remind you to take your medications. Please let your doctor or nurse know if you have problems taking your medications. Medication/Strength Dose Route Frequency Indications/Special Instructions/Comments magnesium citrate (magnesium citrate) 300 mL Oral once multivitamin (Vitamin B Complex oral tablet) 1 tab(s) Oral once a day calcium-vitamin D (Calcium 600+D) 1 tab(s) Oral three times a day multivitamin (multivitamin) Oral once a day spironolactone (spironolactone 25 mg oral tablet) 25 mg Oral two times a day progesterone (progesterone 200 mg oral capsule) 200 mg Oral once a day verapamil (verapamil 180 mg/24 hours oral capsule, extended release) 180 mg Oral once a day for Reynaud's disease Attention: If you have any medications at home that are not on this list, DO NOT take them until youcontact your provider for clarification. Additional Information: Source: [facility] POWERCHART Document Id: [id number] Miscellaneous - Felix Santos APRN, C.N.P. - 04/04/2012 11:02 AM CDT Ambulatory Patient Summary [address] [address] Visit Information Name: AMANDA OSORIO Current Date: 04/04/2012 11:02:35 Physicians Attending Provider: FELIX SANTOS CNP Primary Care Provider: FELIX SANTOS CNP Your Medications Here is a list of your medications. It is important to take your medications as directed. Use a pillbox or chart to help remind you to take your medications. Please let your doctor or nurse know if you have problems taking your medications. Medication/Strength Dose Route Frequency Indications/Special Instructions/Comments magnesium citrate (magnesium citrate) 300 mL Oral once multivitamin (Vitamin B Complex oral tablet) 1 tab(s) Oral once a day calcium-vitamin D (Calcium 600+D) 1 tab(s) Oral three times a day multivitamin (multivitamin) Oral once a day spironolactone (spironolactone 25 mg oral tablet) 25 mg Oral two times a day progesterone (progesterone 200 mg oral capsule) 200 mg Oral once a day verapamil (verapamil 180 mg/24 hours oral capsule, extended release) 180 mg Oral once a day for Reynaud's disease Attention: If you have any medications at home that are not on this list, DO NOT take them until youcontact your provider for clarification. Your Allergies & Intolerances Substance Reaction Symptoms Category Comments No Known Allergies Drug Your Problem List Problem Status Onset Comments Raynaud's disease Active Hypercholesterolemia Active 03/23/2010 Abnormal Pap smear of cervix with low-grade squamous intraepithelial lesion Active 03/23/2010 Varicose veins Active Menorrhagia Active Skin cancer Active 01/28/2010 06/11/10 left lower leg Your Upcoming Appointments Date Time Location Reason Provider No Appointments found Your Goals/Additional instructions: Source: [facility] POWERCHART Document Id: [id number] Miscellaneous - Colton Holm L.P.N. - 04/04/2012 10:50 AM CDT Health Assessment Health Assessment Entered On: 04/04/2012 10:51 CDT Performed On: 04/04/2012 10:50 CDT by COLTON HOLM Health Assessment Complete Health Assessment Complete or Modified : Annual Health Assessment Annual Health Assessment Completed : Yes COLTON HOLM - 04/04/2012 10:50 CDT Nutrition Nutrition Risk Factors by History Adult : None COLTON HOLM - 04/04/2012 10:50 CDT Functional Current Daily Living Assistance : None COLTON HOLM - 04/04/2012 10:50 CDT Dependent Habits Tobacco Use/Currently Using : No Smoking Status : Never smoker COLTON HOLM - 04/04/2012 10:50 CDT Caffeine Use Grid Caffeine Use : Current Type : Soft drinks Frequency : Occasionally COLTON HOLM - 04/04/2012 10:50 CDT Recreational Drug Use Grid Drug Use : None COLTON HOLM - 04/04/2012 10:50 CDT Psychosocial Domestic Abuse Concerns : None COLTON HOLM - 04/04/2012 10:50 CDT Advance Directive Advanced Directives : No COLTON HOLM - 04/04/2012 10:50 CDT Educ Needs Learning Style Preference Adult Grid Patient : Verbal explanation Family : Verbal explanation COLTON HOLM - 04/04/2012 10:50 CDT Source: [facility] [employer] Document Id: [id number] Miscellaneous - Colton Holm L.P.N. 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 Operator Intake/History Entered On: 04/04/2012 10:50 CDT Performed On: 04/04/2012 10:47 CDT by COLTON HOLM Intake Chief Complaint : Physical LMP Date : 03/23/12 Temperature Core : 37.1C(Converted to: 98.8DegF) Peripheral Pulse Rate : 76/min Respiratory Rate : 16/min Systolic Blood Pressure : 112mmHg Diastolic Blood Pressure : 64mmHg NIBP Mean : 80mmHg Height : 176.5cm(Converted to: 5ft 9inch(es), 69.49inch(es)) Actual Weight : 81.5kg(Converted to: 179lb 11oz) Dosing Weight Clinic : 81.50kg Clinic BSA : 2.00 Body Mass Index : 26.16kg/m2 COLTON HOLM - 04/04/2012 10:47 CDT Subjective Pain Symptoms : No COLTON HOLM - 04/04/2012 10:47 CDT Dependent Habits Tobacco Use/Currently Using : No Smoking Status : Never smoker COLTON HOLM - 04/04/2012 10:47 CDT Caffeine Use Grid Caffeine Use : Current Type : Soft drinks Frequency : Occasionally COLTON HOLM - 04/04/2012 10:47 CDT Recreational Drug Use Grid Drug Use : None COLTON HOLM - 04/04/2012 10:47 CDT Allergy Allergies (Active) NKA Estimated Onset Date: Unspecified ; Created By: JAMIE LOMAS LPN; Reaction Status: Active ; Category: Drug ; Substance: NKA ; Type: Allergy ; Updated By: JAMIE LOMAS LPN; Source: Patient ; Reviewed Date: 03/31/2010 13:58 CDT Source: [facility] POWERCHART Document Id: [id number] documented in this encounter Plan of Treatment Not on filedocumented as of this encounter Procedures Procedure Name Priority Date/Time Associated Diagnosis Comme nts THINPREP SCREEN HPV Routine 04/04/2012 11:39 AM R esults for this REFLEX CDT procedure are i n the results section. LIPID PANEL, S Routine 04/04/2012 11:29 AM Result s for this CDT procedure are i n the results section. AUTOMATED Routine 04/04/2012 11:29 AM Results for this DIFFERENTIAL, B CDT procedure ar e in the results section. 25-HYDROXYVITAMIN Routine 04/04/2012 11:29 AM Res ults for this D2 AND D3, S CDT procedure are i n the results section. CBC WITH Routine 04/04/2012 11:29 AM Results for this DIFFERENTIAL, B CDT procedure ar e in the results section. BASIC METABOLIC Routine 04/04/2012 11:29 AM Resul ts for this PANEL, S/P CDT procedure are i n the results section. documented in this encounter Results Pathology ThinPrep Screen HPV Reflex (04/04/2012 11:39 AM CDT) [facility] Time Signature Interpretation [id number] POWERCHART HXThPrep Scrn See Comment POWERCHART [facility] Comment: A. ??ThinPrep Pap Test Screen (Cervical/ Endocervical HPV Reflex): Satisfactory for evaluation. Negative for intraepithelial lesion or m alignancy. Fungal organisms morphologically consist ent with Dejah species HXThPrep Scrn [facility] See Comment KERI RCHART Comment: Report electronically signed by COSME Stock (ASCP) 04/11/2012 08:27 Interpreted by: COSME Stock (ASCP) HX Spec [facility] See Comment POWERCHART Comment: A. ??ThinPrep Pap Test Screen (Cervical/ Endocervical HPV Reflex): Received cloudy specimen in ThinPrep via l. Test Performed by: [place] [address] Sewing Machine Bobbin Winder: Mikael quinonez III, M.D. Specimen (Source) Anatomical Collection Method Collection Time Re ceived Time Location / / Volume Laterality Cervix/Endocervix 04/04/2012 11:39 AM CDT Felix Santos APRN, C.N.P. LAB PAP PATHDX ORDERABLES Performing Organization Address City/State/ZIP Code Phon e Number POWERCHART Automated Differential (04/04/2012 11:29 AM CDT) athologist Signature Neutro % 66.3 34.0 - 71.1 POWERCHART Lymphocytes % 19.9 19.3 - 51.7 POWERCHART HX Martin % 11.3 4.7 - 12.5 POWERCHART HX Eos % 1.9 0.7 - 5.8 POWERCHART HX Baso % 0.6 0.1 - 1.2 POWERCHART Specimen Anatomical Collection Method Collection Time Receive d Time (Source) Location / / Volume Laterality Blood 04/04/2012 11:29 04/04/2012 AM CDT 11:29 AM CDT Jose Maria Paz APRNNGertrudis LAB BLOOD ADD-ON Performing Organization Address City/[facility]/ZIP Code Phon e Number POWERCHART CBC with Differential (04/04/2012 11:29 AM CDT) P athologist Signature Leukocytes 4.7 3.4 - 10.5 POWERCHART X109L Erythrocytes 4.54 3.90 - POWERCHART 5.03 [id number] Hemoglobin 13.9 12.0 - POWERCHART 15.5 GDL Hematocrit 41.5 34.9 - POWERCHART 44.5 MCV 91.4 82.0 - POWERCHART 98.0 FL Platelet Count 162 150 - 450 POWERCHART X109L HX RDW 13.4 11.9 - POWERCHART 15.5 HXDifferential? Auto POWERCHART Specimen (Source) Anatomical Collection Method Collection Time Re ceived Time Location / / Volume Laterality Blood 04/04/2012 11:29 AM CDT Jose Maria Paz APRNN.P. LAB BLOOD ADD-ON Performing Organization Address City/[facility] Code Phon e Number POWERCHART (ABNORMAL) Lipid Panel (04/04/2012 11:29 AM CDT) Patholo gist Method Time Signature Cholesterol, Total 203 (H) 0 - 200 POWERCHART MGDL HX HDL 59.0 40.0 - POWERCHART 60.0 MGDL Triglycerides 89 0 - 150 POWERCHART MGDL Calculated LDL 126 (H) 0 - 100 POWERCHART MGDL Specimen (Source) Anatomical Collection Method Collection Time Re ceived Time Location / / Volume Laterality Blood 04/04/2012 11:29 AM CDT Jose Maria Paz APRNN.P. LAB BLOOD ADD-ON Performing Organization Address City/[facility] Code Phon e Number POWERCHART BMP (Basic Metabolic Panel) (04/04/2012 11:29 AM CDT) P athologist Signature BUN (Blood Urea 13 6 - 20 POWERCHART Nitrogen), S MGDL Creatinine 0.8 0.7 - 1.2 POWERCHART MGDL Potassium, S 4.7 3.5 - 4.8 POWERCHART MMOLL Sodium, S 141 135 - 145 POWERCHART MMOLL Chloride, S 106 100 - 108 POWERCHART MMOLL CO2 Total 27 22 - 29 POWERCHART MMOLL Calcium, Total, 9.1 8.5 - 10.5 POWERCHART S MGDL BUN/Creatinine 16 POWERCHART Ratio HXeGFR (MDRD) >60 MLMIN POWERCHART eGFR >60 MLMIN POWERCHART Black/ Glucose, 97 70 - 99 POWERCHART Fasting, S MGDL Specimen (Source) Anatomical Collection Method Collection Time Re ceived Time Location / / Volume Laterality Blood 04/04/2012 11:29 AM CDT Felix Santos APRN, C.N.P. LAB BLOOD ADD-ON Performing Organization Address City/[facility]/ZIP Code Phon e Number POWERCHART 25-Hydroxyvitamin D2 and D3 (04/04/2012 11:29 AM CDT) athologist Signature HX25 HYDROXY D2 <4.0 NGML POWERCHART 25-Hydroxy D3 42 NGML POWERCHART Vitamin D, S 42 NGML POWERCHART Comment: -- REFERENCE VALUE -- 25-HYDROXY D TOTAL (D2+D3) Optimum levels in the normal population are 25-80 Test Performed by: [place] [address] [employer]ing Machine Bobbin Winder: Mikael quinonez III, M.D. Specimen (Source) Anatomical Collection Method Collection Time Re ceived Time Location / / Volume Laterality Blood 04/04/2012 11:29 AM CDT Felix Santos APRN, C.N.P. LAB BLOOD ADD-ON Performing Organization Address City/State/ZIP Code Phon e Number POWERCHART documented in this encounter Visit Diagnoses Not on filedocumented in this encounter
--- OUTSIDE RECORDS SUMMARY | 2022-06-30 08:34 | XMS_ITS | Encounter Summary ---
:1960 Author Organization [facility] Address [address] [place] [address] Care Team Providers Name Role Phone Unavailable Primary Care Provider Unavailable Encounter Details Date Type Department Care Team Description 03/30/2011 Hospital Encounter HX [facility] FAMILY[facility] MyrRula donovan, DRAGGER OUT, C.N.P. [address] [place] [address] (Wo rk) Social History Tobacco [...] or relatives? How often do you attend mu-ism or mandaen More than 4 time s per year 02/02/2021 services? Do you belong to any clubs or organizations No 02/02/2021 such as mu-ism groups, unions, fraternal or athletic groups, or [...] Sig Dispensed Refills Start Date End Date uypwdivuxjxk-Bh-shko-lead miner Take 1 tablet by 0 10/2009 als tablet mouth daily. documented as of this encounter H&P Notes Felix Santos APRN CKarolNKarolP. - 03/30/2011 12:00 AM CDT [id number] CHIEF COMPLAINT/ REASON FOR VISIT 1. Health care maintenance 2. Abnormal Pap. 3. Hypercholesterolemia HISTORY OF PRESENT ILLNESS 1. Yamel is here for physical exam she had mammogram done this morning. 2. She has history of abnormal Pap and Pap will be repeated today. 3. Hypercholesterolemia. Will check fasting lipids. CURRENT MEDICATIONS See depart summary from today ALLERGIES None SYSTEMS REVIEW Constitutional: no weight loss, fever, night sweats Nutrition: eats regular diet with adequate water intake Integumentary: no rashes, pigmentation changes or lesions of concern Head; eyes; ears; nose; throat: denies headache, ear pain or loss of hearing, blurred or double vision, nasal discharge or sore throat Breasts: denies breast pain, tenderness, discharge, lumps Respiratory: no cough or shortness of breath Cardiovascular: history of hypercholesterolemia Endocrine: no history of polyuria, polydipsia, skin or hair changes, heat or cold intolerance Lymphatic: denies lymph node tenderness or swelling Gastrointestinal: no dysphagia, abdominal pain, nausea, vomiting, change in bowel habits, melena, hematochezia Genitourinary: no change in urination or blood in urine Gynecology: no abnormal vaginal bleeding, pelvic pain or vaginal discharge, history of abnormal Pap smear Musculoskeletal: no joint pain or swelling Neuro: no history of focal neurological symptoms, spells, memory changes Psych: no significant anxiety, depression, or panic PAST MEDICAL/SURGICAL HISTORY Abnormal Pap smear, hypercholesterolemia, menorrhagia, Reynaud's disease, skin cancer, varicose veins PAST SURGICAL HISTORY: Colposcopy in March 2010, ovarian cyst cystectomy 1986, excision skin cancer left leg the 2009, varicose vein stripping 2005 PREVENTIVE: Up to date see EMR SOCIAL HISTORY She is with six step children and 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 SKIN Without lesion. EYES PERRLA. EOMs intact. Fundi sharp discs. Conjunctiva and lids normal. ENT Tympanic membranes clear bilaterally. Nasal mucosa without erythema or congestion. Mouth without erythema or exudate. LYMPH NODES Neck: Supple without adenopathy, no thyromegaly. Carotid pulses are equal bilaterally. BREASTS No skin or nipple retraction. No palpable mass. No axillary adenopathy. No nipple discharge. PERIPHERAL Femoral, dorsal, pedal and posterior tibial pulses are VESSELS equal. HEART Regular rate and rhythm without murmur. LUNGS Clear to auscultation, good inspiratory effort. ABDOMEN Soft, nontender, no palpable mass, no hepatosplenomegaly. RECTUM Normal perirectal area without skin tags or external hemorrhoids. Internal examination reveals a smooth rectal vault, no tenderness. Good rectal tone. GENITALIA Bartholin, urethra, Sekiu's, vagina and cervix are without lesion. Thin prep Pap smear done with spatula and cytobrush. Bimanual examination reveals uterus is midline, mobile, nontender. No adnexal masses. SPINE Normal range of motion. No CVA tenderness. JOINTS Normal range of motion. EXTREMITIES Warm, dry, no cyanosis or peripheral edema. MENTAL Alert and oriented times three. NEURO Deep tendon reflexes are +2 and symmetrical. IMPRESSION/REPORT/PLAN 1. Health care maintenance. Encouraged to work on healthy diet and regular exercise program. 2. History of abnormal Pap smear. Pap smear was repeated today and I will mail her results. 3. Hypercholesterolemia. Will check fasting lipids today SJM/clf Signed Felix Luther. Astrid, MSN, POWER TRANSFORMER REPAIRER, CDE Family Nurse Practitioner Electronically Signed By: FELIX SANTOS CNP On: 03/30/2011 03:35 PM Source: [facility] MHSDOLBEYNONILDA Document Id: [id number] documented in this encounter Miscellaneous Notes Miscellaneous - Felix Sanots APRN, C.N.P. - 03/30/2011 8:56 AM CDT Ambulatory Patient Summary [address] [id number] Visit Information Name: YAMEL MARCELON Current Date: 03/30/2011 08:56:38 Primary Care Provider: FELIX SANTOS CNP Your Medications Here is a list of your medications. It is important to take your medications as directed. Use a pillbox or chart to help remind you to take your medications. Please let your doctor or nurse know if you have problems taking your medications. Medication/Strength Dose Route Frequency Indications/Special Instructions/Comments levonorgestrel-ethinyl estradiol (Triphasil-28 oral tablet) 1 tab(s) Oral once a day Your Allergies & Intolerances Substance Reaction Symptoms Category Comments NKA Drug Your Problem List Problem Status Onset Comments Raynaud's disease Active Hypercholesterolemia Active 03/23/2010 Abnormal Pap smear of cervix with low-grade squamous intraepithelial lesion Active 03/23/2010 Varicose veins Active Menorrhagia Active Skin cancer Active 01/28/2010 left lower leg Your Recommendations We want to make sure you get the tests, immunizations, and guidance you need to stay healthy. Here is a customized list of recommendations, based on information we have in your medical record. Your doctor may have additional recommendations for you, based on your personal medical history and risk factors. You can help us by calling us to make an appointment when you are due for your tests. Additional information regarding recommendations: Test/Treatment Last Done Next Due Additional Information Vaccine: Tetanus every 10 years 03/23/2010 03/20/2020 Immunization to help prevent you from getting the serious disease Tetanus (Lockjaw). Your Upcoming Appointments Date Time Location Reason Provider No Appointments found Your Goals/Additional instructions: Source: [facility] POWERCHART Document Id: [id number] Miscellaneous - Felix Santos APRN, C.N.P. - 03/30/2011 8:56 AM CDT Ambulatory Depart Summary [address] [address] Visit Information Name: YAMEL MARCELO Current Date: 03/30/2011 08:56:37 Primary Care Provider: FELIX SANTOS POWER TRANSFORMER REPAIRER YAMEL MARCELO has been given the following list of medications: Your Medications It is important to take your medications as directed. Use a pill box or chart to help remind you to take your medications. Please let your doctor or nurse know if you have problems taking your medications. Medication/Strength Dose Route Frequency Indications/Special Instructions/Comments levonorgestrel-ethinyl estradiol (Triphasil-28 oral tablet) 1 tab(s) Oral once a day Additional Information: Yes - Current list of reconciled medications is provided and explained to the patient and/or family, guardian/caregiver. Source: [facility] Mint Document Id: [id number] Electronically signed by Conversion, [facility] Cloth Spreader [id number] at 03/19/2017 9:30 PM CDT Miscellaneous - Conversion, Historical Provider Ser - 03/30/2011 8:30 AM CDT Health Assessment Health Assessment Entered On: 03/30/2011 8:30 CDT Performed On: 03/30/2011 8:30 CDT by JAMIE LOMAS LPN Nutrition Nutrition Risk Factors by History Adult: None JAMIE LOMAS LPN - 03/30/2011 8:30 CDT Functional Current Daily Living Assistance: None JAMIE LOMAS LPN - 03/30/2011 8:30 CDT Dependent Habits Tobacco Use/Currently Using: No JAMIE LOMAS LPN - 03/30/2011 8:30 CDT Caffeine Use Grid Caffeine Use: Current Type: Soft drinks Frequency: Occasionally JAMIE LOMAS LPN - 03/30/2011 8:30 CDT Recreational Drug Use Grid Drug Use: None JAMIE LOMAS LPN - 03/30/2011 8:30 CDT Psychosocial Domestic Abuse Concerns: None JAMIE LOMAS LPN - 03/30/2011 8:30 CDT Advance Directive Advanced Directives: No JAMIE LOMAS LPN - 03/30/2011 8:30 CDT Educ Needs Learning Style Preference Adult Grid Patient: Verbal explanation Family: Verbal explanation JAMIE LOMAS LPN - 03/30/2011 8:30 CDT Source: [facility] Mint Document Id: [id number] CDT!23 Miscellaneous - Conversion, Historical Provider Ser - 03/30/2011 8:29 AM CDT Adult Route Jumper Intake/History Adult Route Jumper Intake/History Entered On: 03/30/2011 8:30 CDT Performed On: 03/30/2011 8:29 CDT by JAMIE LOMAS LPN Intake Chief Complaint: physical Temperature Core: 37.0C(Converted to: 98.6DegF) Peripheral Pulse Rate: 76/min Systolic Blood Pressure: 88mmHg (<LLOW) Diastolic Blood Pressure: 60mmHg NIBP Mean: 69mmHg BP Location: Right upper extremity Height: 175.00cm(Converted to: 5ft 9in, 68.90in) Actual Weight: 80.000kg(Converted to: 176lb 6oz) Dosing Weight Clinic: 80.00kg Clinic BSA: 1.97 Body Mass Index: 26.12kg/m2 JAMIE LOMAS LPN - 03/30/2011 8:29 CDT Subjective Pain Symptoms: No JAMIE LOMAS LPN - 03/30/2011 8:29 CDT Dependent Habits Tobacco Use/Currently Using: No Alcohol Use: No JAMIE LOMAS LPN - 03/30/2011 8:29 CDT Caffeine Use Grid Caffeine Use: Current Type: Soft drinks Frequency: Occasionally JAMIE LOMAS LPN - 03/30/2011 8:29 CDT Recreational Drug Use Grid Drug Use: None JAMIE LOMAS LPN - 03/30/2011 8:29 CDT Allergy Allergies (Active) NKA Estimated Onset Date: Unspecified ; Created By: JAMIE LOMAS LPN; Reaction Status: Active ; Category: Drug ; Substance: NKA ; Type: Allergy ; Updated By: JAMIE LOMAS LPN; Source: Patient ; Reviewed Date: 03/31/2010 13:58 CDT Source: [facility] [employer] Document Id: [id number] CDT!27 documented in this encounter Plan of Treatment Not on filedocumented as of this encounter Procedures Procedure Name Priority Date/Time Associated Diagnosis Comme nts THINPREP SCREEN HPV Routine 03/30/2011 8:53 AM Re sults for this REFLEX CDT procedure are i n the results section. documented in this encounter Results ThinPrep Screen HPV Reflex (03/30/2011 8:53 AM CDT) [facility] Method Time Signature Interpretation [id number] [facility] See [facility] POWERCHART [facility] Comment: A. ??ThinPrep Pap Test Screen (Cervical/ Endocervical HPV Reflex): Satisfactory for evaluation. Negative for intraepithelial lesion or m alignancy. Screened at [facility] Cytology Analysi s Office [address] [place] [address] [facility] See Comment KERI RCHART Comment: Report electronically signed by COSME Bourgeois(ASCP) 04/04/2011 14:22 Interpreted by: COSME Bourgeois(ASCP) HX Spec [facility] See Comment POWERCHART Comment: A. ??ThinPrep Pap Test Screen (Cervical/ Endocervical HPV Reflex): Received cloudy specimen in ThinPrep via l. Test Performed by: [facility] Dpt of Lab Med and Pathology [address] [place], [place] [id number] House Mover Helper: Mikael quinonez III, M.D. Specimen (Source) Anatomical Collection Method Collection Time Re ceived Time Location / / Volume Laterality Cervix/Endocervix 03/30/2011 8:53 AM CDT Felix Santos APRN C.NKarolP. LAB PAP PATHDX ORDERABLES Performing Organization Address City/State/ZIP Code Phon e Number POWERCHART documented in this encounter Visit Diagnoses Not on filedocumented in this encounter
--- OUTSIDE RECORDS SUMMARY | 2022-06-30 08:34 | XMS_ITS | Encounter Summary ---
:1960 Author Organization [facility] Address [address] [place] [address] Care Team Providers Name Role Phone Unavailable Primary Care Provider Unavailable Encounter Details Date Type Department Care Team Description 09/29/2011 Hospital Encounter HX [facility] NURSE ONRula Alvarenga, MEDICAL ASSISTING INSTRUCTOR, C.N.P. [address] [place] [address] (Wo rk) Social History Tobacco [...] or relatives? How often do you attend nondenominational or zoroastrianism More than 4 time s per year 02/02/2021 services? Do you belong to any clubs or organizations No 02/02/2021 such as nondenominational groups, unions, fraternal or athletic groups, or [...] Sig Dispensed Refills Start Date End Date pgduvrztuova-Ag-ghkv-textile examiner Take 1 tablet by 0 10/2009 als tablet mouth daily. documented as of this encounter Procedure Notes Conversion, Historical Provider Ser - 09/29/2011 3:40 PM CST PPD Reading PPD Reading Entered On: 09/29/2011 15:40 MEAT CARVER Performed On: 09/29/2011 15:40 MEAT CARVER by ELENO SHAIKH PPD Reading MM of Induration : 0mm PPD Interpretation : Negative PPD Placed On : Right inner forearm PPD Date/Time Administered : 09/27/2011 13:56 MEAT CARVER ELENO SHAIKH - 09/29/2011 15:40 MEAT CARVER Source: [facility] POWERCHART Document Id: [id number] MEAT CARVER!6 documented in this encounter Plan of Treatment Not on filedocumented as of this encounter Visit Diagnoses Not on filedocumented in this encounter
--- OUTSIDE RECORDS SUMMARY | 2022-06-30 08:34 | XMS_ITS | Encounter Summary ---
:1960 Author Organization [facility] Address [address] [place] [address] Care Team Providers Name Role Phone Unavailable Primary Care Provider Unavailable Encounter Details Date Type Department Care Team Description 06/14/2012 Hospital Encounter HX NO MAPPING Calvin Blas M. D. Social History Tobacco Use Types Packs/Day Years [...] How often do you attend hoahaoism or scientology More than 4 time s per year [...] daily. 600 mg calcium- 200 unit capsule hamlkitotuht-Zd-wfwj-salvage determiner Take 1 tablet by 0 10/2009 als tablet mouth daily. documented as of this encounter Plan of Treatment Not on filedocumented as of this encounter Visit Diagnoses Not on filedocumented in this encounter
--- OUTSIDE RECORDS SUMMARY | 2022-06-30 08:34 | XMS_ITS | Encounter Summary ---
:1960 Author Organization [facility] Address [address] [place] [address] Care Team Providers Name Role Phone Unavailable Primary Care Provider Unavailable Encounter Details Date Type Department Care Team Description 03/30/2011 Hospital Encounter HX [facility] Allyson Trinh, FRANKFURTER INSPECTOR, C.N.P. [address] [place], [place] [address] (Wo rk) Social History [...] or relatives? How often do you attend lutheran or jew More than 4 time s per year 02/02/2021 services? Do you belong to any clubs or organizations No 02/02/2021 such as lutheran groups, unions, fraternal or athletic groups, or [...] Sig Dispensed Refills Start Date End Date zapyfovrqiun-Xk-uyag-blasting miner Take 1 tablet by 0 10/2009 als tablet mouth daily. documented as of this encounter Plan of Treatment Not on filedocumented as of this encounter Procedures Procedure Name Priority Date/Time Associated Diagnosis Comme nts BI BREAST SCREENING Routine 03/30/2011 7:56 AM Re sults for this BILATERAL CDT procedure are i n the results section. documented in this encounter Results BI Breast Screening Bilateral (03/30/2011 7:56 AM CDT) Anatomical Region Laterality Modality Breast Bilateral Mammography Specimen (Source) Anatomical Collection Method Collection Time Re ceived Time Location / / Volume Laterality 03/30/2011 7:56 AM CDT Impressions 03/30/2011 11:52 AM CDT BI-RADS 1. Negative. Recommend routine s creening mammogram. ? BREAST MAMMOGRAPHY-GENERAL OBSERVATION: The false negative rate for mammography it is 15 to 20%. It cannot b e used, therefore, to replace regular physical examination. A normal o r noncontributory mammogram report should also not deter the aggress kenton further workup of any suspected palpable masses. Narrative 03/30/2011 11:52 AM CDT Screening Digital Mammogram MLO and CC v iews ? Clinical history: No current complaints ?? Comparison: 03/23/2010, 03/06/2009, 8, 01/19/2007, 12/19/2006. ?? Findings: The breast parenchyma is heter ogeneously dense. There is no suspicious microcalcification, ??focal m ass, or architectural distortion. ??There is no significant ch cathryn. ?? Computer Aided Detection was utilized du ring the interpretation of this exam. ?? Procedure Note Hasmukh Scott M.D. / ProviderMicheal M.D. - 03/08/2017 Screening Digital Mammogram MLO and CC v iews Clinical history: No current complaints Comparison: 03/23/2010, 03/06/2009, 8, 01/19/2007, 12/19/2006. Findings: The breast parenchyma is heter ogeneously dense. There is no suspicious microcalcification, focal mas s, or architectural distortion. There is no significant roman ge. Computer Aided Detection was utilized du ring the interpretation of this exam. IMPRESSION: BI-RADS 1. Negative. Recommend routine s creening mammogram. BREAST MAMMOGRAPHY-GENERAL OBSERVATION: The false negative rate for mammography it is 15 to 20%. It cannot b e used, therefore, to replace regular physical examination. A normal o r noncontributory mammogram report should also not deter the aggress kenton further workup of any suspected palpable masses. Anibal Joaquin(R)(M) IMG BI PROCEDURES documented in this encounter Visit Diagnoses Not on filedocumented in this encounter
--- OUTSIDE RECORDS SUMMARY | 2022-06-30 08:34 | XMS_ITS | Encounter Summary ---
:1960 Author Organization [facility] Address [address] [place] [address] Care Team Providers Name Role Phone Unavailable Primary Care Provider Unavailable Encounter Details Date Type Department Care Team Description 05/14/2012 Hospital Encounter [facility]X [facility] MyrRula donovan, FIRST CALENDER WORKER, C.N.P. [address] [place] [address] (Wo rk) Social History Tobacco [...] How often do you attend pentecostalism or quaker More than 4 time s [...] Sign Reading Time Taken Comments Blood Pressure 110/64 05/14/2012 1:09 PM CDT Pulse 88 05/14/2012 1:09 PM CDT Temperature - - Respiratory Rate 16 05/14/2012 1:09 PM CDT Oxygen Saturation - - Inhaled Oxygen Concentration - - Weight 81.6 kg (179 lb 14.3 oz) 05/14/2012 1:09 PM CDT Height 175 cm (5' 8.9) 05/14/2012 1:09 PM CDT Body Mass Index 26.64 05/14/2012 1:09 PM CDT documented in this encounter Medications at Time of Discharge Medication Sig Dispensed Refills Start Date End Date calcium carbonate-vitamin Take 1 tablet by 0 03/17 D3 (CALCIUM 600 + D,3,) mouth daily. 600 mg calcium- 200 unit capsule vhsfbxjjsmtm-Tn-mzky-lightout examiner Take 1 tablet by 0 10/2009 als tablet mouth daily. documented as of this encounter Progress Notes Felix Santos, ASHIA, C.N.P. - 05/14/2012 12:00 AM CDT [id number] CHIEF COMPLAINT/REASON FOR VISIT Preop for bilateral varicose vein stripping HISTORY OF PRESENT ILLNESS Amanda is being seen at the request of Dr. Hilario Stallings from [facility] for medical evaluation prior to surgery. She is scheduled for bilateral varicose vein stripping with Dr. Stallings at [facility] on 05/18/2012. She has no history of bleeding tendencyor blood transfusions. CURRENT MEDICATIONS 1. Calcium 600 mg with vitamin D 1 three times a day 2. Verapamil 180 mg extended release 1 daily for Raynaud's disease 3. Multivitamin 1 daily 4. Magnesium citrate 1 daily 5. Multivitamin B complex 1 daily 6. Spironolactone 25 mg 1 twice daily 7. Progesterone 20 mg 1 daily. ALLERGIES None. SYSTEMS REVIEW The patient denies any visual pain or blurring, no diplopia. Denies any changes in hearing or disequilibrium. No nosebleeds or nasal discharge. No sores in the mouth or difficulty swallowing. No adenopathy in the neck or elsewhere. Denies any shortness of breath or palpitation. No angina or pressure in the chest. No nausea or vomiting. No change in bowel or bladder habits. No blood in the urine or stool. No significant arthritis. No neurologic symptoms. No concern about any skin lesions. PAST MEDICAL HISTORY Abnormal Pap smear in 2009, hypercholesterolemia, menorrhagia, Raynaud's disease, skin cancer, varicose veins. PAST SURGICAL HISTORY: Colposcopy 2009, ovarian cystectomy 1986, excision of skin cancer left leg January 2010, varicose vein stripping 2005 PREVENTIVE: Up-to-date. SOCIAL HISTORY She is with 6 step children and works for [employer] services. She does not smoke rare alcohol. FAMILY HISTORY Mother age 69 cause of brain cancer. She also has hyperlipidemia. Father and siblingshealthy. VITAL SIGNS TEMPERATURE 37.6 PULSE 88 RESPIRATIONS 16 BLOOD PRESSURE 110/64 O2 sat 97% HEIGHT 175 cm WEIGHT 81.6 kg PHYSICAL EXAM GENERAL: In general, the patient [...] tenderness. JOINTS: Normal range of motion. EXTREMITIES: Erythematous and edematous hang nail, lateral aspect left thumb nail. MENTAL: Alert and oriented times three. Grossly nonfocal. NEURO: Reflexes are +2 and symmetrical. IMPRESSION/REPORT/PLAN 1. Preoperative medical evaluation. Patient's active problems diagnostically and therapeutically optimized for planned procedure. Preanesthesia screening completed for obstructive sleep apnea. She is low risk with a score of 0. She will not use any aspirin fish oil NSAIDs prior to surgery. She will beNPO after midnight the night before surgery. She will resume all medications after surgery. Appropriate paperwork will be completed and faxed to [facility] fax number [phone]. All of her questions were answered. She is class ASA 1 2. Infected hang nail left thumb. Cephalexin 500 mg 1 three times daily for 10 days warm Dreft soakstwice daily and recheck if symptoms are not improved in the next couple of days Felix Santos CNP/kwame Electronically Signed By: FELIX SANTOS CNP On: 05/14/2012 02:22 PM Source: [facility] MHSDOLBEYNCARLOSSYS Document Id: [id number] documented in this encounter Miscellaneous Notes Miscellaneous - Shyla Fu, RFrances. - 06/19/2012 11:02 AM CDT Reminder Msg for colonoscopy Document Contains Addenda Addendum by JENNIFER RO on May 29, 2017 09:29:07 CDT Letter mailed to patient to call back to schedule. Addendum by CARRI NIXON LPN on May 24, 2017 11:14:42 CDT Patient stated that she will check on her insurance and call us back. From: SHYLA FU To: FELIX SANTOS CNP; SHYLA FU; Sent: 06/19/2012 11:02:04 CDT Show up: 05/14/2017 11:01:00 CDT Subject: Reminder Msg for colonoscopy Due Date/Time: 06/14/2017 11:03:00 CDT Please Remember to: Call patient to schedule a colonoscopy. Last done on 06-14-12 rescope [place] [address] Blas. PATIENT: ( ) Call Patient ( ) Ask Patient to ( ) ( ) Call Relative ( ) Schedule Patient ( ) ( ) Call for Slope Hoist Operator ( ) Follow up on Results ( ) Other: PROVIDER: ( ) Call Physician ( ) Call Pharmacist ( ) Call Lab ( ) Other: Special Instructions: Comments: Source: [facility] POWERCHART Document Id: [id number] ORATE INTERN Miscellaneous - Felix Santos APRN, C.N.P. - 05/14/2012 1:26 PM CDT Obstructive Sleep Apnea Obstructive Sleep Apnea Entered On: 05/14/2012 13:28 CDT Performed On: 05/14/2012 13:26 CDT by FELIX SANTOS CNP GREGORY Screening Known Obstructive Sleep Apnea : No Risk for Sleep Apnea : No FELIX SANTOS CNP - 05/14/2012 13:26 CDT GREGORY Assessment Do you have high blood pressure or have you been told to take medication for high blood pressure? : No Frequency of Snoring : Rarely (1-2 times per year) Frequency of Gasping, Choking, Snorting : Never Neck Circumference (cm) : 32/33 Total Sleep Apnea Clinical Score : 0 Total Number of Historical Features : 0 FELIX SANTOS CNP - 05/14/2012 13:26 CDT [facility] Document Id: [id number] Miscellaneous - Felix Santos APRN, C.N.P. - 05/14/2012 1:21 PM CDT Ambulatory Patient Summary [address] [address] Visit Information Name: AMANDA MARCELO Current Date: 05/14/2012 13:21:28 Physicians Attending Provider: FELIX SANTOS CNP Primary [...] No Appointments found Your Goals/Additional instructions: Source: [facility] POWERCHART Document Id: [id number] Miscellaneous - Felix Santos APRN, C.N.P. - 05/14/2012 1:21 PM CDT Ambulatory Depart Summary [address] [address] Visit Information Name: AMANDA MARCELO Visit Date: 05/14/2012 13:21:27 Attending Provider: FELIX SANTOS CNP Primary Care [...] your provider for clarification. Additional Information: Source: [facility] POWERCHART Document Id: [id number] Miscellaneous - Colton Molina L.P.N. - 05/14/2012 1:09 PM CDT Adult Histology Tech Intake/History Adult Histology Tech Intake/History Entered On: 05/14/2012 13:13 CDT Performed On: 05/14/2012 13:09 CDT by COLTON MOLINA Intake Chief Complaint : Pre-op Temperature Core : 37.6C(Converted to: 99.7DegF) Peripheral Pulse Rate : 88/min Respiratory Rate : 16/min Systolic Blood Pressure : 110mmHg Diastolic Blood Pressure : 64mmHg NIBP Mean : 79mmHg SpO2 : 97% Height : 175cm(Converted to: 5ft 9inch(es), 68.90inch(es)) Actual Weight : 81.6kg(Converted to: 179lb 14oz) Dosing Weight Clinic : 81.60kg Clinic BSA : 1.99 Body Mass Index : 26.64kg/m2 COLTON MOLINA - 05/14/2012 13:09 CDT Subjective Pain Symptoms : No COLTON MOLINA - 05/14/2012 13:09 CDT Dependent Habits Tobacco Use/Currently Using : No Smoking Status : Never smoker COLTON MOLINA - 05/14/2012 13:09 CDT Caffeine Use Grid Caffeine Use : Current Type : Soft drinks Frequency : Occasionally COLTON MOLINA - 05/14/2012 13:09 CDT Recreational Drug Use Grid Drug Use : None COLTON MOLINA - 05/14/2012 13:09 CDT Allergy Allergies (Active) NKA Estimated Onset Date: Unspecified ; Created By: JAMIE LOMAS LPN; Reaction Status: Active ; Category: Drug ; Substance: NKA ; Type: Allergy ; Updated By: JAMIE LOMAS LPN; Source: Patient ; Reviewed Date: 04/04/2012 11:02 CDT [facility] Document Id: [id number] documented in this encounter Plan of Treatment Not on filedocumented as of this encounter Visit Diagnoses Not on filedocumented in this encounter
--- OUTSIDE RECORDS SUMMARY | 2022-06-30 08:34 | XMS_ITS | Encounter Summary ---
:1960 Author Organization [facility] Address [address] [place] [address] Care Team Providers Name Role Phone Unavailable Primary Care Provider Unavailable Encounter Details Date Type Department Care Team Description 06/11/2010 Hospital Encounter HX [facility] MyrRula donovan, POLICE AIDE, C.N.P. [address] [place] [address] (Wo rk) Social History Tobacco [...] How often do you attend episcopal or mandaeism More than 4 time s per year [...] Sig Dispensed Refills Start Date End Date ctwdctwvaebs-Hr-jxwl-sample examiner Take 1 tablet by 0 10/2009 als tablet mouth daily. documented as of this encounter Progress Notes Felix Santos APRN, CKarolNKarolP. - 06/11/2010 12:00 AM CDT [id number] IMPRESSION / REPORT / PLAN Preoperative medical evaluation. Patient's active problems diagnostically and therapeutically optimized for planned procedure. She will not use any aspirin or NSAID products prior to surgery. She will take her control pill on the morning of surgery. Will get EKG, CBC, and BMP. Also checking screening vitamin D per patient's request. Appropriate paperwork completed and faxed to [facility] phone number [phone]. All of her questions were answered. She is class ASA I. CHIEF COMPLAINT / REASON FOR VISIT Left leg varicose vein HISTORY OF PRESENT ILLNESS Yamel is being seen at the request of Dr. Raul Sosa for medical evaluation prior to surgery. She is scheduled for left varicose vein procedure with Dr. Sosa at [facility] on 06-28-10. CURRENT MEDICATIONS 1. Triphasil oral contraceptive pill 1 daily ALLERGIES None SYSTEMS REVIEW The patient denies any visual changes. Denies any changes in hearing. No nasal discharge. No sores in the mouth or difficulty swallowing. No adenopathy in the neck or elsewhere. Denies shortness of breath or palpitations. No angina or pressure in the chest. No nausea or vomiting. No change in bowel or bladder habits. No blood in urine or stool. No pelvic symptoms or complaints. No significant arthritis. No neurologic symptoms. Cancerous skin lesion left lower extremity. PAST MEDICAL / SURGICAL HISTORY 1. Hypercholesterolemia 2. Reynaud's disease 3. Varicose veins 4. Cancerous skin lesion left lower extremity Past surgical history 1. Excision cancerous skin lesion left lower extremity 2. Ovarian cystectomy 3. Varicose vein stripping 2005 PREVENTIVE SERVICES Up to date see EMR SOCIAL HISTORY FAMILY HISTORY Negative VITAL SIGNS See EMR PHYSICAL EXAM AREA EXAM TEXT GENERAL In general, the patient is a pleasant female who appears her stated age. SKIN Without lesion. EYES PERRLA, EOMs intact. Fundi sharp discs. Conjunctiva and lids normal. ENT Tympanic membranes clear bilaterally. Nasal mucosa without erythema or congestion. Mouth without erythema or exudate. LYMPH NODES Neck: Supple, without adenopathy, no thyromegaly. Carotid pulses are equal bilaterally. THYROID No thyromegaly. PERIPHERAL Femoral, dorsal, pedal and posterior tibial pulses are equal. VESSELS HEART Regular rate and rhythm without murmur. LUNGS Clear to auscultation, there is good inspiratory effort. ABDOMEN Soft, nontender, no palpable mass, no hepatosplenomegaly. SPINE Back straight without CVA tenderness. No cervical, thoracic or lumbar tenderness. JOINTS Normal range of motion. EXTREMITIES Warm, dry, no cyanosis or peripheral edema. MENTAL Alert and oriented times three. Grossly nonfocal. NEURO Reflexes are +2 and symmetrical. SJM/clf Signed Felix Luther. Astrid, MSN, TRADE UNION SECRETARY, CDE Family Nurse Practitioner Electronically Signed By:FELIX SANTOS CNP On 06/15/2010 08:28 AM Source: [facility] Document Id: [id number] documented in this encounter Miscellaneous Notes Miscellaneous - Felix Santos APRN, C.N.P. - 06/11/2010 10:26 AM CDT [place] [address] Visit Information Name: YAMEL MARCELO Current Date: 06/11/2010 10:26:51 Primary Care Provider: FELIX SANTOS CNP [id number] MARCELINA MARCELOOLIVA HIGGINSN has been given the following list of medications: Your Medications It is important to take your medications as directed. Use a pill box or chart to help remind you to take your medications. Please let your doctor or nurse know if you have problems taking your medications. Medication/Strength Dose Route Frequency Indications/Special Instructions/Comments ethinyl estradiol-levonorgestrel (Triphasil-28 oral tablet) 1 tab(s) Oral once a day Additional Information: Yes - Current list of reconciled medications is provided and explained to the patient and/or family, guardian/caregiver. Source: [facility] POWERCHART Document Id: [id number] Electronically signed by Sven [facility] Scoring Machine Operator [id number] at 03/20/2017 2:47 AM CDT Miscellaneous - Conversion, Historical Provider Ser - 06/11/2010 9:47 AM CDT Adult Ui Architect Intake/History Adult Ui Architect Intake/History Entered On: 06/11/2010 9:48 CDT Performed On: 06/11/2010 9:47 CDT by JAMIE LOMAS LPN Intake Chief Complaint: pre op for vein surgery left leg at [facility] Dr. Raul philip [facility] LMP Date: 06/02/2010 Temperature Core: 37.6DegC(Converted to: 99.7DegF) Peripheral Pulse Rate: 80bpm Respiratory Rate: 24br/min (HI) Systolic Blood Pressure: 94mmHg Diastolic Blood Pressure: 60mmHg NIBP Mean: 71mmHg BP Location: Left upper extremity Height: 177.00cm(Converted to: 5ft 10in, 5.81ft, 69.69in) Clinic BSA: 1.96 Actual Weight: 78.500kg(Converted to: 173.063lb) Body Mass Index: 25kg/m2 Dosing Weight Clinic: 78.50kg JAMIE LOMAS LPN - 06/11/2010 9:47 CDT Subjective Pain Symptoms: No JAMIE LOMAS LPN - 06/11/2010 9:47 CDT Dependent Habits Tobacco Use/Currently Using: No Alcohol Use: No JAMIE LOMAS LPN - 06/11/2010 9:47 CDT Caffeine Use Grid Caffeine Use: Current Type: Soft drinks Frequency: Occasionally JAMIE LOMAS LPN - 06/11/2010 9:47 CDT Recreational Drug Use Grid Drug Use: None JAMIE LOMAS LPN - 06/11/2010 9:47 CDT Allergies Latex Screening: No FELIX SANTOS CNP - 06/11/2010 10:34 CDT Allergies (Active) NKA Estimated Onset Date: Unspecified ; Created By: JAMIE LOMAS LPN; Reaction Status: Active ; Category: Drug ; Substance: NKA ; Type: Allergy ; Updated By: JAMIE LOMAS LPN; Source: Patient ; Reviewed Date: 03/31/2010 13:58 CDT Health History I Cardiovascular Past Medical History Grid Heart Attack: Grandparents High Cholesterol: Self FELIX SANTOS CNP - 06/11/2010 10:34 CDT Health History II Endocrine/Metabolic Past Med Hx Grid Diabetes: Grandparents FELIX SANTOS TRADE UNION SECRETARY - 06/11/2010 10:34 CDT Oncologic Past Medical History Grid Lymphoma: Mother Skin Cancer: Self FELIX SANTOS CNP - 06/11/2010 10:34 CDT Source: [facility] [employer] Document Id: [id number]!13 documented in this encounter Plan of Treatment Not on filedocumented as of this encounter Visit Diagnoses Not on filedocumented in this encounter
--- OUTSIDE RECORDS SUMMARY | 2022-06-30 08:34 | XMS_ITS | Encounter Summary ---
:1960 Author Organization [facility] Address [address] [place] [address] Care Team Providers Name Role Phone Unavailable Primary Care Provider Unavailable Encounter Details Date Type Department Care Team Description 10/06/2011 Hospital Encounter HX [facility] NURSE ONRula Alvarenga, CLINICAL LABORATORY DIRECTOR, C.N.P. [address] [place] [address] (Wo rk) Social History Tobacco [...] or relatives? How often do you attend islam or yazidism More than 4 time s per year 02/02/2021 services? Do you belong to any clubs or organizations No 02/02/2021 such as islam groups, unions, fraternal or athletic groups, or [...] Sig Dispensed Refills Start Date End Date lfleampfodsr-Wk-jfov-wrapper layer and examiner soft work Take 1 tablet by 0 10/2009 als tablet mouth daily. documented as of this encounter Procedure Notes Conversion, Historical Provider Ser - 10/06/2011 2:40 PM CST PPD Reading PPD Reading Entered On: 10/06/2011 14:41 ROTOR COIL TAPER Performed On: 10/06/2011 14:40 ROTOR COIL TAPER by ELENO SHAIKH PPD Reading MM of Induration : 0mm PPD Interpretation : Negative PPD Placed On : Right inner forearm PPD Date/Time Administered : 10/04/2011 13:40 ROTOR COIL TAPER PPD Reading Comment : Form for work signed and given to patient. ELENO SHAIKH - 10/06/2011 14:40 ROTOR COIL TAPER Source: [facility] [employer] Interactive Document Id: [id number] ROTOR COIL TAPER!7 documented in this encounter Plan of Treatment Not on filedocumented as of this encounter Visit Diagnoses Not on filedocumented in this encounter
--- OUTSIDE RECORDS SUMMARY | 2022-06-30 08:34 | XMS_ITS | Encounter Summary ---
:1960 Author Organization [facility] Address [address] [place] [address] Care Team Providers Name Role Phone Unavailable Primary Care Provider Unavailable Encounter Details Date Type Department Care Team Description 10/19/2012 Hospital Encounter HX [facility] FAMILYPRA Roberth Peace P.A.-C. [address] [place] [phone] (Wo rk) Social History Tobacco Use Types [...] or relatives? How often do you attend scientology or episcopalian More than 4 time s per year 02/02/2021 services? Do you belong to any clubs or organizations No 02/02/2021 such as scientology groups, unions, fraternal or athletic groups, or [...] Sign Reading Time Taken Comments Blood Pressure 102/62 10/19/2012 12:59 PM METAL BONDER Pulse 96 10/19/2012 12:59 PM METAL BONDER Temperature - - Respiratory Rate 16 10/19/2012 12:59 PM METAL BONDER Oxygen Saturation - - Inhaled Oxygen Concentration - - Weight 80 kg (176 lb 5.9 oz) 10/19/2012 12:59 PM METAL BONDER Height 180 cm (5' 10.87) 10/19/2012 12:59 PM METAL BONDER Body Mass Index 24.69 10/19/2012 12:59 PM METAL BONDER documented in this encounter Medications at Time of Discharge Medication Sig Dispensed Refills Start Date End Date calcium carbonate-vitamin Take 1 tablet by 0 03/17 D3 (CALCIUM 600 + D,3,) mouth daily. 600 mg calcium- 200 unit capsule jojoytmhxkif-Gy-acyl-mica miner blasting Take 1 tablet by 0 10/2009 als tablet mouth daily. documented as of this encounter Progress Notes Joseph Peace P.A.-C. - 10/19/2012 1:06 PM CST [id number] CHIEF COMPLAINT/REASON FOR VISIT Sinus congestion and ear pain. HISTORY OF PRESENT ILLNESS Yamel is a very pleasant 52-year-old female who has had some sinus congestion for about the last week. She thought this was going to get better on its own. Yesterday she blew her nose and since that time has had some fairly significant ear pain on the right side. VITAL SIGNS Noted in the electronic medical record. PHYSICAL EXAM GENERAL: She appears in no acute distress. ENT: TMs are nonerythematous bilaterally. Sinuses are tender to percussion in the maxillary sinus region. Throat no erythema. HEART: Regular rate and rhythm, no murmurs. LUNGS: Clear to auscultation. IMPRESSION/REPORT/PLAN 1. Sinusitis with eustachian tube dysfunction. PLAN: At this time I told her that her sinuses may be secondary to a viral etiology. They seem to beimproving but I think she has plugged up her eustachian tubes when she blew her nose yesterday. I recommend she use a nasal saline spray as a decongestant. She could also try some Sudafed. I would likeher to push fluids. If her symptoms worsen or do not improve with this therapy I gave her a prescription for amoxicillin to hang onto over the weekend and if her symptoms worsen or do not improve within the next 3 to 5 days she will get it filled, otherwise I will have her discard the prescription andfollow up as needed. Joseph Peace PA-C/andres Electronically Signed By: JOSEPH PEAEC PA-C On: 10/24/2012 09:51 AM Source: [facility] [id number] Document Id: [id number] L BONDER documented in this encounter Miscellaneous Notes Miscellaneous - Joseph Peace P.A.-C. - 10/19/2012 1:24 PM CST Ambulatory Patient Summary [address] [address] Visit Information Name: YAMEL MARCELO [facility] Number: [id number] Current Date: 10/19/2012 13:24:52 Physicians Attending Provider: JOSEPH PEACE PA-C Primary Care Provider: FELIX SANTOS SINGING WAITER OR WAITRESS Your Medications Here is a list of your medications. It is important to take your medications as directed. Use a pillbox or chart to help remind you to take your medications. Please let your doctor or nurse know if you have problems taking your medications. Medication/Strength Dose Route Frequency Indications/Special Instructions/Comments sodium chloride nasal (Nasal Saline 0.65% spray) two sprays Nostrils(Both) every 1-2 hours amoxicillin (amoxicillin 875 mg oral tablet) 875 mg Oral two times a day for 10 Days magnesium citrate (magnesium citrate) 300 mL Oral once multivitamin (Vitamin B Complex oral tablet) 1 tab(s) Oral once a day calcium-vitamin D (Calcium 600+D) 1 tab(s) Oral three times a day multivitamin (multivitamin) Oral once a day *spironolactone (spironolactone 25 mg oral tablet) 25 mg Oral two times a day progesterone (progesterone 200 mg oral capsule) 200 mg Oral once a day verapamil (verapamil 180 mg/24 hours oral capsule, extended release) 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 Please talk with your primary care provider or the health care provider who prescribed the medication as soon as possible. Attention: If you have any medications at [...] No Appointments found Your Goals/Additional instructions: Source: [facility] POWERCHART Document Id: [id number] L BONDER Miscellaneous - Joseph Peace P.A.-C. - 10/19/2012 1:24 PM CST Ambulatory Depart Summary [address] [address] Visit Information Name: YAMEL MARCELO [facility] Number: [id number] Visit Date: 10/19/2012 13:24:51 Attending Provider: JOSEPH PEACE PA-C Primary Care Provider: FELIX SANTOS SINGING WAITER OR WAITRESS YAMEL MARCELO RHONDA has been given the following list of medications: Your Medications It is important to take your medications as directed. Use a pill box or chart to help remind you to take your medications. Please let your doctor or nurse know if you have problems taking your medications. Medication/Strength Dose Route Frequency Indications/Special Instructions/Comments sodium chloride nasal (Nasal Saline 0.65% spray) two sprays Nostrils(Both) every 1-2 hours amoxicillin (amoxicillin 875 mg oral tablet) 875 mg Oral two times a day for 10 Days magnesium citrate (magnesium citrate) 300 mL Oral once multivitamin (Vitamin B Complex oral tablet) 1 tab(s) Oral once a day calcium-vitamin D (Calcium 600+D) 1 tab(s) Oral three times a day multivitamin (multivitamin) Oral once a day *spironolactone (spironolactone 25 mg oral tablet) 25 mg Oral two times a day progesterone (progesterone 200 mg oral capsule) 200 mg Oral once a day verapamil (verapamil 180 mg/24 hours oral capsule, extended release) 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 Please talk with your primary care provider or the health care provider who prescribed the medication as soon as possible. Attention: If you have any medications at home that are not on this list, DO NOT take them until youcontact your provider for clarification. Additional Information: Source: [facility] POWERCHART Document Id: [id number] L BONDER Miscellaneous - Gianna Moser L.P.N. - 10/19/2012 12:59 PM CST Adult Senior Service Aide Intake/History Adult Senior Service Aide Intake/History Entered On: 10/19/2012 13:04 METAL BONDER Performed On: 10/19/2012 12:59 METAL BONDER by GIANNA MOSER Intake Chief Complaint : both ears ache, mostly R ear and sinus Temperature Core : 37.4C(Converted to: 99.3DegF) Peripheral Pulse Rate : 96/min Respiratory Rate : 16/min Systolic Blood Pressure : 102mmHg Diastolic Blood Pressure : 62mmHg NIBP Mean : 75mmHg BP Location : Right upper extremity Blood Pressure Cuff Size : Regular Height : 180cm(Converted to: 5ft 11inch(es), 70.87inch(es)) Actual Weight : 80kg(Converted to: 176lb 6oz) Weight Source : Standing scale Dosing Weight Clinic : 80.00kg Clinic BSA : 2.00 Body Mass Index : 24.69kg/m2 GIANNA MOSER - 10/19/2012 12:59 METAL BONDER Subjective Pain Symptoms : Yes GIANNA MOSER - 10/19/2012 12:59 METAL BONDER Pain Pain Assessment Grid Pain 1 Location : Ear GIANNA MOSER - 10/19/2012 12:59 METAL BONDER Dependent Habits Tobacco Use/Currently Using : No Smoking Status : Never smoker GIANNA MOSER - 10/19/2012 12:59 METAL BONDER Caffeine Use Grid Caffeine Use : Current Type : Soft drinks Frequency : Occasionally GIANNA MOSER - 10/19/2012 12:59 METAL BONDER Recreational Drug Use Grid Drug Use : None GIANNA MOSER - 10/19/2012 12:59 METAL BONDER Allergy Allergies (Active) NKA Estimated Onset Date: Unspecified ; Created By: JAMIE LOMAS LPN; Reaction Status: Active ; Category: Drug ; Substance: NKA ; Type: Allergy ; Updated By: JAMIE LOMAS LPN; Source: Patient ; Reviewed Date: 10/19/2012 12:57 METAL BONDER Source: [facility] POWERCHART Document Id: [id number] L BONDER documented in this encounter Plan of Treatment Not on filedocumented as of this encounter Visit Diagnoses Not on filedocumented in this encounter
--- OUTSIDE RECORDS SUMMARY | 2022-06-30 08:34 | XMS_ITS | Encounter Summary ---
:1960 Author Organization [facility] Address [address] [place] [address] Care Team Providers Name Role Phone Unavailable Primary Care Provider Unavailable Encounter Details Date Type Department Care Team Description 03/23/2010 Hospital Encounter HX [facility] FBHB FAMILYPRA MyrRula donovan, PALLIATIVE CARE PHYSICIAN, C.N.P. 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 documented as of this encounter Miscellaneous Notes Miscellaneous - Myrom, Felix J, PALLIATIVE CARE PHYSICIAN, C.NGertrudis - 03/23/2010 9:12 AM CDT Ambulatory Depart Summary [address] [address] Visit Information Name: AMANDA MARCELO Current Date: 03/23/2010 09:12:47 Primary Care Provider: FELIX SANTOS [facility] [phone] AMANDA MARCELO has been given the following [...] to the patient and/or family, guardian/caregiver. Source: [facility] POWERCHART Document Id: [id number] Miscellaneous - Sven, Cedrick Provider Ser - 03/23/2010 8:35 AM CDT Health Assessment Health Assessment Entered On: 03/23/2010 8:36 CDT Performed On: 03/23/2010 8:35 CDT by JAMIE LOMAS LPN Nutrition Weight Change > 10lbs in 6 Months: No JAMIE LOMAS LPN - 03/23/2010 8:35 CDT Functional Current Daily Living Assistance: None JAMIE LOMAS LPN - 03/23/2010 8:35 CDT Dependent Habits Tobacco Use/Currently Using: No Alcohol Use: No JAMIE LOMAS LPN - 03/23/2010 8:35 CDT Caffeine Use Grid Caffeine Use: Current Type: Soft drinks Frequency: Occasionally JAMIE LOMAS LPN - 03/23/2010 8:35 CDT Psychosocial Domestic Concerns: None JAMIE LOMAS LPN - 03/23/2010 8:35 CDT Advance Directive Advanced Directives: No JAMIE LOMAS LPN - 03/23/2010 8:35 CDT Educ Needs Learning Style Preference Adult Grid Patient: Verbal explanation Family: Verbal explanation JAMIE LOMAS LPN - 03/23/2010 8:35 CDT Source: [facility] POWERCHART Document Id: [id number]!21 Miscellaneous - Conversion, Historical Provider Ser - 03/23/2010 8:34 AM CDT Adult Digital Strategy Specialist Intake/History Adult Digital Strategy Specialist Intake/History Entered On: 03/23/2010 8:35 CDT Performed On: 03/23/2010 8:34 CDT by JAMIE LOMAS LPN Intake Chief Complaint: est. care and pap LMP Date: Temperature Core: 37.4DegC(Converted to: 99.3DegF) Peripheral Pulse Rate: 72bpm Systolic Blood Pressure: 102mmHg Diastolic Blood Pressure: 70mmHg NIBP Mean: 81mmHg BP Location: Right upper extremity Height: 176.00cm(Converted to: 5ft 9in, 5.77ft, 69.29in) Clinic BSA: 1.96 Actual Weight: 78.500kg(Converted to: 173.063lb) Body Mass Index: 25kg/m2 Dosing Weight Clinic: 78.50kg JAMIE LOMAS LPN - 03/23/2010 8:34 CDT Subjective Pain Symptoms: No JAMIE LOMAS LPN - 03/23/2010 8:34 CDT Dependent Habits Tobacco Use/Currently Using: No Alcohol Use: Yes JAMIE LOMAS LPN - 03/23/2010 8:34 CDT Caffeine Use Grid Caffeine Use: Current Type: Soft drinks Frequency: Occasionally JAMIE LOMAS LPN - 03/23/2010 8:34 CDT Allergies Latex Screening: No FELIX SANTOS MANAGER OF DRILLING - 03/23/2010 8:48 CDT Allergies (Active) NKA Estimated Onset Date: Unspecified ; Created By: JAMIE LOMAS LPN; Reaction Status: Active ; Category: Drug ; Substance: NKA ; Type: Allergy ; Updated By: JAMIE LOMAS LPN; Source: Patient ; Reviewed Date: 03/23/2010 8:33 CDT Health History I Cardiovascular Past Medical History Grid High Cholesterol: Self FELIX SANTOS [facility] - 03/23/2010 8:48 CDT Health History II Endocrine/Metabolic Past Med Hx Grid Diabetes: Grandparents FELIX SANTOS [facility] - 03/23/2010 8:48 CDT Oncologic Past Medical History Grid Lymphoma: Mother FELIX SANTOS [facility] - 03/23/2010 8:48 CDT Source: [facility] POWERCHART Document Id: [id number]!11 documented in this encounter Plan of Treatment Not on filedocumented as of this encounter Procedures Procedure Name Priority Date/Time Associated Diagnosis Comme nts HXPHYS INTERP OF Routine 03/23/2010 11:55 AM Resu lts for this THIN PREP, PAP CDT procedure are in the results section. THINPREP SCREEN HPV Routine 03/23/2010 11:55 AM R esults for this REFLEX CDT procedure are i n the results section. documented in this encounter Results HX Hx phys Interp of Thin Prep, Pap (03/23/2010 11:55 AM CDT) [facility] [employer] Method Time Signature Interpretation Performed POWERCHART Comment: Test Performed by: [facility] Dpt of Lab Med and Pathology [address] [place] [address] Cloth Printing Inspector: Mikael quinonez III, M.D. Specimen Anatomical Collection Method Collection Time Receive d Time (Source) Location / / Volume Laterality Cervix/Endocervi 03/23/2010 11:55 010 6:31 x AM CDT PM CDT Historical Provider LAB HISTORICAL ORDERS Performing Organization Address City/State/ZIP Code Phon e Number POWERCHART ThinPrep Screen HPV Reflex (03/23/2010 11:55 AM CDT) [facility] [employer] Method Time Signature Interpretation [id number] POWERCHART HXThPrep Scrn See Comment POWERCHART [facility] Comment: A. ??ThinPrep Pap Test Screen (Cervical/ Endocervical HPV Reflex): Satisfactory for evaluation. Squamous epithelial cell abnormality Low grade squamous intraepithelial lesio n. 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 Fungal organisms morphologically consist ent with Dejah species HXThPrep Scrn [place] See Comment KERI MCKEON Comment: RESULT: Damaris Elder, CT( ASCP) [facility]Prep [facility] See Comment KERI MCKEON Comment: RESULT: 03/26/2010 14:44 Interpreted by: Oscar Villela M.D. Report electronically signed by Oscar Villela M.D. Transcribed by: zahira ??03/26/2010 11:51:50 HX Spec [place] See Comment POWERCHART Comment: A. ??ThinPrep Pap Test Screen (Cervical/ Endocervical HPV Reflex): Received cloudy specimen in ThinPrep via l. Test Performed by: [facility] Dpt of Lab Med and Pathology [address] [place] [address] Cloth Printing Inspector: Mikael quinonez III, M.D. Specimen (Source) Anatomical Collection Method Collection Time Re ceived Time Location / / Volume Laterality Cervix/Endocervix 03/23/2010 11:55 AM CDT Felix Santos APRN C.N.P. LAB PAP PATHDX ORDERABLES Performing Organization Address City/State/ZIP Code Phon e Number POWERCHART documented in this encounter Visit Diagnoses Not on filedocumented in this encounter
--- OUTSIDE RECORDS SUMMARY | 2022-06-30 08:34 | XMS_ITS | Encounter Summary ---
:1960 Author Organization [facility] Address [address] [place] [address] Care Team Providers Name Role Phone Unavailable Primary Care Provider Unavailable Encounter Details Date Type Department Care Team Description 04/05/2012 Hospital Encounter HX [facility] Allyson Trinh, SYSTEM SAFETY MANAGER, C.N.P. [address] [place], [place] [phone] (Wo rk) Social History [...] How often do you attend pentecostal or restorationist More than 4 time s [...] daily. 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 documented as of this encounter Plan of Treatment Not on filedocumented as of this encounter Procedures Procedure Name Priority Date/Time Associated Comments Diagnosis BI BREAST DIAGNOSTIC Routine 04/05/2012 1:57 PM R esults for this RIGHT WITH COMPUTER CDT procedur e are in AIDED DETECTION the results section. documented in this encounter Results BI Breast Diagnostic Right with Computer Aided Detection (04/05/2012 1:57 PM CDT) Anatomical Region Laterality Modality Breast Right Mammography Specimen (Source) Anatomical Collection Method Collection Time Re ceived Time Location / / Volume Laterality 04/05/2012 1:57 PM CDT Narrative 04/05/2012 2:41 PM CDT History: New round right breast mass on screening mammography. Technique: A digital diagnostic right br east mammogram was performed. Comparison: Screening mammograms from and prior. Findings: The round right breast mass (n ear 9:00) persists on diagnostic mammography, therefore sonogr aphic characterization is required. Impression: BIRADS 0, incomplete, needs additional imaging evaluation. Procedure Note Jerman Calvillo M.D. / Provider, Baldemar cordoba M.D. - 03/08/2017 History: New round right breast mass on screening mammography. Technique: A digital diagnostic right br east mammogram was performed. Comparison: Screening mammograms from and prior. Findings: The round right breast mass (n ear 9:00) persists on diagnostic mammography, therefore sonogr aphic characterization is required. Impression: BIRADS 0, incomplete, needs additional imaging evaluation. Anibal Joaquin(R)(M) IMG BI PROCEDURES documented in this encounter Visit Diagnoses Not on filedocumented in this encounter
--- OUTSIDE RECORDS SUMMARY | 2022-06-30 08:34 | XMS_ITS | Encounter Summary ---
:1960 Author Organization [facility] Address [address] [place] [address] Care Team Providers Name Role Phone Unavailable Primary Care Provider Unavailable Encounter Details Date Type Department Care Team Description 09/25/2013 Hospital Encounter [facility]X [facility] Felix Santos, Alejandra DE LA GARZA, C.N.P. [address] [place], [place] [phone] (Wo rk) Social History [...] How often do you attend worship or congregational More than 4 time s [...] daily. 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 documented as of this encounter Miscellaneous Notes Miscellaneous - Felix Santos APRN, C.N.P. - 09/29/2013 6:23 PM CST Schedule Follow-Up Visit 29 September 2013 YAMEL MARCELO [id number] [facility] [id number] Dear YAMEL MARCELO, Thank you for choosing [facility] for your health care needs. You recently had laboratory work performed to assess your overall health. This letter contains the results of your testing and standard ranges to help explain the results. If you have questions prior to our appointment, please contact our office. Result Name Current Result Normal Range Sodium Lvl (mmol/L) 144 09/25/2013 135 - 145 Potassium Lvl (mmol/L) 4.5 09/25/2013 3.5 - 4.8 Chloride (mmol/L) 106 09/25/2013 100 - 108 CO2 (mmol/L) 29 09/25/2013 22 - 30 Glucose Fasting (mg/dL) 94 09/25/2013 70 - 99 Creatinine (mg/dL) 0.8 09/25/2013 0.7 - 1.2 EGFR (MDRD) (mL/min) >60 09/25/2013 EGFR (MDRD) (mL/min) >60 09/25/2013 BUN (mg/dL) 16 09/25/2013 6 - 20 Calcium Lvl (mg/dL) 9.6 09/25/2013 8.5 - 10.5 Cholesterol (mg/dL) (H) 247 09/25/2013 0 - 200 Trig (mg/dL) 77 09/25/2013 0 - 150 HDL (mg/dL) (H) 65.0 09/25/2013 40.0 - 60.0 LDL Calculated (mg/dL) (H) 167 09/25/2013 0 - 100 TSH, Sensitive-Macy (mIU/L) 0.6 09/25/2013 0.3-5.0 - Hgb (g/dL) 13.1 09/25/2013 12.0 - 15.5 Hct (%) 39.9 09/25/2013 34.9 - 44.5 WBC (x10(9)/L) 4.2 09/25/2013 3.4 - 10.5 RBC (x10(12)/L) 4.33 09/25/2013 3.90 - 5.03 MCV (fL) 92.1 09/25/2013 82.0 - 98.0 RDW (%) 12.9 09/25/2013 11.9 - 15.5 60Platelet (x10(9)/L) 155 09/25/2013 150 - 450 Neutro % (%) 55.1 09/25/2013 34.0 - 71.1 Lymph % (%) 28.6 09/25/2013 19.3 - 51.7 Crane % (%) 12.4 09/25/2013 4.7 - 12.5 Eos % (%) 2.9 09/25/2013 0.7 - 5.8 Baso % (%) 1.0 09/25/2013 0.1 - 1.2 Neutro Absolute (10(9)/L) 2.32 09/25/2013 1.70 - 7.00 Lymph Absolute (x10(9)/L) 1.20 09/25/2013 0.90 - 2.90 Crane Absolute (x10(9)/L) 0.52 09/25/2013 0.30 - 0.90 Eos Absolute (x10(9)/L) 0.12 09/25/2013 0.05 - 0.50 Baso Absolute (x10(9)/L) 0.04 09/25/2013 0.00 - 0.30 Differential? Auto 09/25/2013 Sincerely, FELIX SANTOS [address] [place], [place] [id number] Electronic Signature Electronically Signed By: FELIX SANTOS CNP On: 29 September 2013 This document has images extracted. Source: [facility] POWERCHART Document Id: [id number] Electronically signed by Sven, [facility] Judicial Reporter [id number] at 03/15/2017 4:15 PM CDT documented in this encounter Plan of Treatment Not on filedocumented as of this encounter Procedures Procedure Name Priority Date/Time Associated Diagnosis Comme nts LIPID PANEL, S Routine 09/25/2013 8:29 AM Results for this INTERNET TECHNOLOGY MANAGER procedure are i n the results section. AUTOMATED Routine 09/25/2013 8:29 AM Results f or this DIFFERENTIAL, B INTERNET TECHNOLOGY MANAGER procedure ar e in the results section. CBC WITH Routine 09/25/2013 8:29 AM Results f or this DIFFERENTIAL, B INTERNET TECHNOLOGY MANAGER procedure ar e in the results section. THYROID-STIMULATING Routine 09/25/2013 8:29 AM Re sults for this HORMONE-SENSITIVE INTERNET TECHNOLOGY MANAGER procedure are in (S-TSH) the results section. BASIC METABOLIC Routine 09/25/2013 8:29 AM Result s for this PANEL, S/P INTERNET TECHNOLOGY MANAGER procedure are i n the results section. documented in this encounter Results Automated Differential (09/25/2013 8:29 AM INTERNET TECHNOLOGY MANAGER) athologist Signature Neutro % 55.1 34.0 - POWERCHART 71.1 Lymphocytes % 28.6 19.3 - POWERCHART 51.7 HX Crane % 12.4 4.7 - 12.5 POWERCHART HX Eos % 2.9 0.7 - 5.8 POWERCHART HX Baso % 1.0 0.1 - 1.2 POWERCHART Absolute 2.32 1.70 - POWERCHART Neutrophils 7.00 109L Lymphocytes 1.20 0.90 - POWERCHART 2.90 X109L Monocytes 0.52 0.30 - POWERCHART 0.90 X109L Eosinophils 0.12 0.05 - POWERCHART 0.50 X109L Absolute 0.04 0.00 - POWERCHART Basophil 0.30 X109L Specimen Anatomical Collection Method Collection Time Receive d Time (Source) Location / / Volume Laterality Blood 09/25/2013 8:29 AM 3 8:29 INTERNET TECHNOLOGY MANAGER AM INTERNET TECHNOLOGY MANAGER Felix Santos APRN, C.N.P. LAB BLOOD ADD-ON Performing Organization Address City/State/ZIP Code Phon e Number POWERCHART CBC with Differential (09/25/2013 8:29 AM INTERNET TECHNOLOGY MANAGER) athologist Signature Leukocytes 4.2 3.4 - 10.5 POWERCHART X109L Erythrocytes 4.33 3.90 - POWERCHART 5.03 [id number] Hemoglobin 13.1 12.0 - POWERCHART 15.5 GDL Hematocrit 39.9 34.9 - POWERCHART 44.5 MCV 92.1 82.0 - POWERCHART 98.0 FL Platelet Count 155 150 - 450 POWERCHART X109L HX RDW 12.9 11.9 - POWERCHART 15.5 HXDifferential? Auto POWERCHART Specimen (Source) Anatomical Collection Method Collection Time Re ceived Time Location / / Volume Laterality Blood 09/25/2013 8:29 AM INTERNET TECHNOLOGY MANAGER Felix Santos APRN C.N.P. LAB BLOOD ADD-ON Performing Organization Address City/State/ZIP Code Phon e Number POWERCHART Thyroid-Stimulating Hormone-Sensitive (s-TSH) (09/25/2013 8:29 AM INTERNET TECHNOLOGY MANAGER) P athologist Signature TSH, Sensitive 0.6 0.3 - 5.0 POWERCHART MIUL Comment: Test Performed by: [place] [address] Parts Advisor: Mikael quinonez III, M.D. Specimen (Source) Anatomical Collection Method Collection Time Re ceived Time Location / / Volume Laterality Blood 09/25/2013 8:29 AM INTERNET TECHNOLOGY MANAGER Felix Santos APRN, C.N.P. LAB BLOOD ADD-ON Performing Organization Address City/State/ZIP Code Phon e Number POWERCHART (ABNORMAL) Lipid Panel (09/25/2013 8:29 AM INTERNET TECHNOLOGY MANAGER) [facility] Method Time Signature Cholesterol, 247 (H) 0 - 200 POWERCHART Total MGDL HX HDL 65.0 (H) 40.0 - POWERCHART 60.0 MGDL Triglycerides 77 0 - 150 POWERCHART MGDL Calculated LDL 167 (H) 0 - 100 POWERCHART MGDL Specimen (Source) Anatomical Collection Method Collection Time Re ceived Time Location / / Volume Laterality Blood 09/25/2013 8:29 AM INTERNET TECHNOLOGY MANAGER Felix Santos APRN, C.N.P. LAB BLOOD ADD-ON Performing Organization Address City/State/ZIP Code Phon e Number POWERCHART BMP (Basic Metabolic Panel) (09/25/2013 8:29 AM INTERNET TECHNOLOGY MANAGER) P athologist Signature BUN (Blood Urea 16 6 - 20 POWERCHART Nitrogen), S MGDL Creatinine 0.8 0.7 - 1.2 POWERCHART MGDL Potassium, S 4.5 3.5 - 4.8 POWERCHART MMOLL Sodium, S 144 135 - 145 POWERCHART MMOLL Chloride, S 106 100 - 108 POWERCHART MMOLL Calcium, Total, 9.6 8.5 - 10.5 POWERCHART S MGDL HXeGFR (MDRD) >60 MLMIN POWERCHART eGFR >60 MLMIN POWERCHART Black/ Glucose, 94 70 - 99 POWERCHART Fasting, S MGDL CO2 Total 29 22 - 30 POWERCHART MMOLL Specimen (Source) Anatomical Collection Method Collection Time Re ceived Time Location / / Volume Laterality Blood 09/25/2013 8:29 AM INTERNET TECHNOLOGY MANAGER Felix Santos APRN, C.N.P. LAB BLOOD ADD-ON Performing Organization Address City/State/ZIP Code Phon e Number POWERCHART documented in this encounter Visit Diagnoses Not on filedocumented in this encounter
--- OUTSIDE RECORDS SUMMARY | 2022-06-30 08:34 | XMS_ITS | Encounter Summary ---
:[address] [facility] Address [address] [place] [address] Care Team Providers Name Role Phone Unavailable Primary Care Provider Unavailable Encounter Details Date Type Department Care Team Description 03/31/2010 Hospital Encounter HX [facility] [place] M .D. 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 documented as of this encounter Consult Roney Denise M.D. - 03/31/2010 12:00 AM CDT [id number] IMPRESSION/REPORT/PLAN Low grade MARK Pap smear 03/23/2010. Plan: 1. I discussed cervical dysplasia and abnormal Pap smear with the patient. I discussed low grade MARK and JOHN 1. I discussed human papilloma virus with the patient. 2. I briefly discussed management options for cervical dysplasia and HPV with the patient. 3. I reviewed the colposcopy findings with the patient showing normal cervix. ECC specimen is obtained. 4. I will contact the patient next week with the results of the ECC specimen. I will discuss specific management plan at that point after reviewing the pathology. 5. If the ECC specimen is benign I recommend a repeat Pap smear in 6 months. The patient agrees with this course of action. 6. STD prevention is discussed with the patient. 7. [place] protocol form is completed for this visit. PROCEDURE I reviewed the risks, benefits, alternatives and indications of colposcopy and possible biopsy with the patient. The patient verbalized understanding and desires to proceed. I performed colposcopy, which is satisfactory and adequate for evaluation. I cleaned the cervix with acetic acid solution. Squamocolumnar junction is visualized. Transformation zone is visualized at 360 degrees. There is no acetowhite epithelium. No mosaicism. No punctation. No abnormal blood vessels. An ECC specimen is obtained and this is sent to pathology for evaluation. The patient tolerated the procedure well. CHIEF COMPLAINT/REASON FOR VISIT Abnormal Pap smear HISTORY OF PRESENT ILLNESS This patient is a 50-year-old, G0, P0 female with LMP 03/10/2010 who presents for Parquetry Floor Layer consult from Allyson Resendiz. The patient had her first abnormal Pap smear on 03/23/2010. This returned as low grade MARK Pap with JOHN 1. The patient reports that she had an abnormal Pap smear when she was 22 with a repeat Pap smear 3 months later with normal findings. Otherwise, this is her first abnormal Pap smear. The patient reports regular menses every 28 days on control pills that last for 2-3 days. No menorrhagia. No intermenstrual bleeding. No dysmenorrhea. No dyspareunia or postcoital spotting. No vaginal itching, irritation or discharge. No difficulty urinating, dysuria, hematuria or flank pain. No nausea, vomiting, diarrhea, or change in bowel habits. The patient denies tobacco abuse. She reports history of gonorrhea at age 27, which was treated. She denies history of PID. No history of condyloma or sexual partner with condyloma. She denies high risk sexual behavior. She reports less than 10 lifetime sexual partners. CURRENT MEDICATIONS Post-visit Medication Reconciliation Trivora control pill 1 p.o. daily ALLERGIES No known drug allergies. PAST MEDICAL/SURGICAL HISTORY 1. Hypercholesterolemia 2. Raynaud's disease Past Surgical History: 1. Ovarian cystectomy 1986 2. Varicose vein stripping 2005 Past Obstetrical History: None PREVENTIVE SERVICES Tobacco use: None Pap smear: 03/23/2010 Mammogram: 03/23/2010 Bone density: Not indicated due to age. Colon screening: Not indicated due to age. Tetanus booster: 03/23/2010 Gardasil: Not indicated due to age. Depression: Denied Asthma: Denied Cholesterol: 01/15/2010 SOCIAL HISTORY The patient is . She denies tobacco or drug use. She reports rare alcohol use. No history of PID. No prior history of cervical dysplasia as mentioned above. No history of abuse. VITAL SIGNS DATE/TIME 03/31/10 WEIGHT 78.3 kg PULSE 72 SYSTOLIC 106 DIASTOLIC 64 PHYSICAL EXAM AREA EXAM TEXT GENERAL Well-developed, well-nourished female in no apparent distress. Alert and oriented x3. ABDOMEN Soft, nontender and nondistended. Positive bowel sounds. No hepatosplenomegaly. No rebound. No guarding. GENITALIA Normal external female genitalia. Normal BUS. Normal vaginal rugae without lesions. Normal nulliparous cervical os without lesions. No cervical motion tenderness. Uterus normal size, shape, consistency, midposition, mobile and nontender. No adnexal masses or tenderness bilaterally. EXTREMITIES No clubbing, cyanosis or edema. Nontender bilaterally. JTS/mgd Signed Roney Torres M.D. Obstetrics & Gynecology Electronically Signed By:RONEY TORRES MD On 04/01/2010 11:06 AM Source: [facility] MHSDOLBEYNCARLOSSYS Document Id: [id number] documented in this encounter Miscellaneous Notes Miscellaneous - Conversion, Historical Provider Ser - 04/09/2010 7:46 AM CDT Reminder Msg From: ANDERSON MOLINA LPN To: ANDERSON MOLINA LPN; Sent: 04/09/2010 07:46:17 CDT Show up: 09/29/2010 07:46:00 PROPOSAL LEAD WRITER Subject: Reminder Msg Please Remember to: repeat pap smear due 10-05-10 PATIENT: ( x) Call Patient ( ) Ask Patient to ( ) ( ) Call Relative ( ) Schedule Patient ( ) ( ) Call for Builder'S Labourer ( ) Follow up on Results ( ) Other: PROVIDER: ( ) Call Physician ( ) Call Pharmacist ( ) Call Lab ( ) Other: Special Instructions: Comments: [facility] Document Id: [id number] Miscellaneous - Roney Torres M.D. - 04/05/2010 8:18 AM CDT Reminder Msg From: RONEY TORRES MD To: ANDERSON MOLINA; Sent: 04/05/2010 08:18:18 CDT Show up: 04/05/2010 08:17:00 CDT Subject: Reminder Msg Please Remember to: PATIENT: ( ) Call Patient ( ) Ask Patient to ( ) ( ) Call Relative ( ) Schedule Patient ( ) ( ) Call for Builder'S Labourer ( x ) Follow up on Results ( ) Other: PROVIDER: ( ) Call Physician ( ) Call Pharmacist ( ) Call Lab ( ) Other: Special Instructions: Comments: ECC specimen is benign ( Fragments of benign endocervical mucosa and benign squamous epithelium ). See dictated note. I recommend repeat Pap in 6 months. Results: 03/31/2010 13:58 Surg IV [facility] [id number] 03/31/2010 13:58 Surg IV Addr[facility] See Comment 03/31/2010 13:58 Surg IV FnlDiag-[place] See Comment 03/31/2010 13:58 Surg IV Ref-[place] See Comment 03/31/2010 13:58 Surg IV SgnPath-[place] See Comment 03/31/2010 13:58 Surg IV Ts Desc-[place] See Comment Source: [facility] POWERCHART Document Id: [id number] Telephone Encounter - Roney Torres M.D. - 04/05/2010 12:00 AM CDT [id number] Phone number: [phone] I am calling the patient to discuss her test results. She is a 50-year-old female who had her first abnormal Pap smear on 03/23/2010 that returned as low grade MARK with JOHN 1. The patient then underwent a colposcopy evaluation, which was satisfactory and adequate for evaluation. There is no acetowhite epithelium or evidence of dysplasia. An ECC specimen was obtained and this returned as benign endocervical tissue. No evidence of dysplasia or abnormalities. I reviewed the findings of the colposcopy, as well as, the ECC specimen with the patient. She has normal colposcopy and benign ECC specimen. This does not explain the low grade MARK Pap from earlier this month. I recommend a repeat Pap smear in 6 months. I discussed this with the patient. She agrees with this course of action. The patient may go see her primary provider for this Pap smear in 6 months or I will be happy to see her if she would prefer to see me. If the repeat Pap smear in 6 months is normal then I feel the patient can return to regular screening. JTS/mgd Signed Roney Torres M.D. Obstetrics & Gynecology Source: [facility] MHSDOLBEYNONRADSYS Document Id: [id number] Miscellaneous - Conversion, Historical Provider Ser - 03/31/2010 1:29 PM CDT Adult Can Handler Intake/History Adult Can Handler Intake/History Entered On: 03/31/2010 13:30 CDT Performed On: 03/31/2010 13:29 CDT by ANDERSON MOLINA LPN Intake Chief Complaint: colposcopy LMP Date: Peripheral Pulse Rate: 72bpm Heart Rhythm: Regular Oxygen Therapy: Room air Systolic Blood Pressure: 106mmHg Diastolic Blood Pressure: 64mmHg NIBP Mean: 78mmHg BP Location: Left upper extremity Actual Weight: 78.300kg(Converted to: 172.622lb) Dosing Weight Clinic: 78.30kg ANDERSON MOLINA LPN - 03/31/2010 13:29 CDT Subjective Pain Symptoms: No ANDERSON MOLINA LPN - 03/31/2010 13:29 CDT Dependent Habits Tobacco Use/Currently Using: No ANDERSON MOLINA LPN - 03/31/2010 13:29 CDT Caffeine Use Grid Caffeine Use: Current Type: Soft drinks Frequency: Occasionally ANDERSON MOLINA LPN - 03/31/2010 13:29 CDT Allergies Allergies (Active) NKA Estimated Onset Date: Unspecified ; Created By: JAMIE LOMAS LPN; Reaction Status: Active ; Category: Drug ; Substance: NKA ; Type: Allergy ; Updated By: JAMIE LOMAS LPN; Source: Patient ; Reviewed Date: 03/31/2010 13:29 CDT Source: [email or web address] Document Id: [id number] documented in this encounter Plan of Treatment Not on filedocumented as of this encounter Procedures Procedure Name Priority Date/Time Associated Diagnosis Comme nts SURGICAL PATHOLOGY Routine 03/31/2010 1:58 PM Res ults for this CDT procedure are i n the results section. documented in this encounter Results Pathology Surgical Pathology, [facility] (03/31/2010 1:58 PM CDT) [facility] Method Time Signature HXSurg IV [id number] POWERCHART [facility] HXSurg IV See Comment POWERCHART [facility] Comment: RESULT: Roney Torres M.D. HXSurg IV [facility] See Comment POWERCHA RT Comment: [facility] [address] [place] [address] SLIDE DISPOSITION: HXSurg IV [facility] See Comment POWER CHART Comment: [id number] A1 A. Received in formalin labeled endocer vical curettings is a 0.2 x 0.2 x 0.1 cm area of olivas-brown soft tiss ue and mucus. Specimens are submitted in toto in cassette A1. Part A: ??Endocervical Curettings 1 Endocervical Curettings Oscar Villela M.D. XRSR Path [facility] See Comment POWER CHART Comment: A. ??Endocervix, curettage: ??Fragments of benign endocervical mucosa and benign squamous epithelium. Seen in consultation with Dr. MR Villela. HXSurg IV [facility] See Comment POWER CHART Comment: RESULT: 04/02/2010 14:59 Interpreted by: Jacqueline Damian M.D. Report electronically signed by Jacqueline Damian M.D. Transcribed by: [email or web address] 04/02/2010 14:47:35 Test Performed by: [facility] Dpt of Lab Med and Pathology [address] [place] [address] Office Inspector: Mikael quinonez III, M.D. Specimen (Source) Anatomical Collection Method Collection Time Re ceived Time Location / / Volume Laterality Tissue 03/31/2010 1:58 PM CDT Roney Torres M.D. LAB SURG PATH ORDERABLES Performing Organization Address City/State/ZIP Code Phon e Number POWERCHART documented in this encounter Visit Diagnoses Not on filedocumented in this encounter
--- OUTSIDE RECORDS SUMMARY | 2022-06-30 08:34 | XMS_ITS | Encounter Summary ---
:1960 Author Organization [facility] Address [address] [place] [address] Care Team Providers Name Role Phone Unavailable Primary Care Provider Unavailable Encounter Details Date Type Department Care Team Description 03/23/2010 Hospital Encounter HX [facility] Felix Trinh, PACKAGING COORDINATOR, C.N.P. 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 documented as of this encounter Progress Notes Felix Santos APRN, C.N.P. - 03/23/2010 12:00 AM CDT [id number] IMPRESSION/REPORT/PLAN 1. Pap smear with refill on oral contraceptive pills. She was updated today on tetanus with Adacel. I will mail her Pap smear results. CHIEF COMPLAINT/REASON FOR VISIT 1. Pap smear 2. Refill control pills HISTORY OF PRESENT ILLNESS Amanda needs refill on her oral contraceptive pills. She is due for Pap smear. She states she had physical examination in January. Her cholesterol was a little bit high. She is working on diet and exercise. She has history of Reynaud's disease. She is scheduled for mammogram today and is also due for update on tetanus. CURRENT MEDICATIONS See Depart Summary from today ALLERGIES See EMR PREVENTIVE SERVICES See EMR VITAL SIGNS See EMR PHYSICAL EXAM AREA EXAM TEXT GENERAL Well developed well nourished female in no acute distress. SKIN Warm and dry. HEAD HEENT unremarkable. HEART Heart regular rate and rhythm. LUNGS Lungs clear to auscultation. GENITALIA Bartholin's, urethra, [place]'s, vagina and cervix are without lesion. Thin prep Pap smear done with plastic spatula and cytobrush. Bimanual examination reveals uterus is midline, mobile, nontender. No adnexal masses. SJM/clf Signed Felix Luther. Astrid, MSN, COAL DIGGER, CDE Family Nurse Practitioner Electronically Signed By:FELIX SANTOS CNP On 03/24/2010 01:43 PM Source: [facility] MHSDOLBEYNCARLOSSYS Document Id: [id number] documented in this encounter Plan of Treatment Not on filedocumented as of this encounter Procedures Procedure Name Priority Date/Time Associated Diagnosis Comme nts BI BREAST SCREENING Routine 03/23/2010 10:22 AM R esults for this BILATERAL CDT procedure are i n the results section. documented in this encounter Results BI Breast Screening Bilateral (03/23/2010 10:22 AM CDT) Anatomical Region Laterality Modality Breast Bilateral Mammography Specimen (Source) Anatomical Collection Method Collection Time Re ceived Time Location / / Volume Laterality 03/23/2010 10:22 AM CDT Impressions 04/01/2010 9:29 AM CDT 1. Stable examination with no mammograph ic evidence of malignancy. 2. Annual screening mammography is recom mended. ?? BIRADS: Code 2, ??Benign Findings ?? BREAST MAMMOGRAPHY-GENERAL OBSERVATION: The false negative rate for mammography is 10 to 15%. It cannot be u sed, therefore, to replace regular physical examination. A normal o r noncontributory mammogram report should also not deter the aggress kenton further workup of any suspected palpable masses. Narrative 04/01/2010 9:29 AM CDT Bilateral craniocaudal and oblique views of the breasts were obtained digitally, and compared to the patient's prior studies of 03/06/2009 and prior dating back to 12/19/2006. ?? The breast parenchyma remains heterogene ously dense with a stable appearance relative to prior studies. Th ere are no new or suspicious grouping of calcifications, dominant nod ules, areas of skin thickening or nipple retraction to suggest malignan cy. Scattered monomorphic benign bilateral c alcifications. ?? Computer Aided Detection was utilized du ring the interpretation of this exam. ?? Procedure Note Wali, Thomas Cartagena M.D. - 03/09/2017Forma tting of this note might be different from the original. Bilateral craniocaudal and oblique views of the breasts were obtained digitally, and compared to the patient's prior studies of 03/06/2009 and prior dating back to 12/19/2006. The breast parenchyma remains heterogene ously dense with a stable appearance relative to prior studies. Th ere are no new or suspicious grouping of calcifications, dominant nod ules, areas of skin thickening or nipple retraction to suggest malignan cy. Scattered monomorphic benign bilateral c alcifications. Computer Aided Detection was utilized du ring the interpretation of this exam. IMPRESSION: 1. Stable examination with no mammograph ic evidence of malignancy. 2. Annual screening mammography is recom mended. BIRADS: Code 2, Benign Findings BREAST MAMMOGRAPHY-GENERAL OBSERVATION: The false negative rate for mammography is 10 to 15%. It cannot be u sed, therefore, to replace regular physical examination. A normal o r noncontributory mammogram report should also not deter the aggress kenton further workup of any suspected palpable masses. Naya Joaquin(R), R.TKarol(R)(M) IMG BI PROCEDURES documented in this encounter Visit Diagnoses Not on filedocumented in this encounter
--- OUTSIDE RECORDS SUMMARY | 2022-06-30 08:34 | XMS_ITS | Encounter Summary ---
:1960 Author Organization [facility] Address [address] [place] [address] Care Team Providers Name Role Phone Unavailable Primary Care Provider Unavailable Encounter Details Date Type Department Care Team Description 11/08/2010 Hospital Encounter HX [facility] FAMILYPRA MyrRula donovan, PASTRY CHEF, C.N.P. [address] [place] [address] (Wo rk) Social History Tobacco [...] How often do you attend buddhist or christianity More than 4 time s [...] Sig Dispensed Refills Start Date End Date yrvcmhumtrmj-Ue-rouj-insurance claims examiner Take 1 tablet by 0 10/2009 als tablet mouth daily. documented as of this encounter Progress Notes Felix Santos APRN, C.N.P. - 11/08/2010 12:00 AM CST [id number] CHIEF COMPLAINT/ REASON FOR VISIT Abnormal Pap smear in March 2010, low grade squamous intraepithelial lesion. HISTORY OF PRESENT ILLNESS Yamel is here for repeat Pap. She had abnormal Pap in April 04, 2010. Pap showed low grade squamous intraepithelial lesion. She is here for repeat she has no other concerns today. CURRENT MEDICATIONS See depart summary from today ALLERGIES None PREVENTIVE: Up to date see EMR Vitals see EMR PHYSICAL EXAM Well developed well nourished female in no acute distress. : Bartholin's, urethra, [place]'s, vagina and cervix are without lesion. Thin prep Pap smear done with plastic spatula and cytobrush. Bimanual examination reveals uterus is midline, mobile, nontender. No adnexal masses. IMPRESSION/REPORT/PLAN Abnormal Pap smear with repeat Pap done today. I will contact her with results. SJM/clf Signed Felix Luther. Astrid, MSN, BASKET MACHINE OPERATOR, CDE Family Nurse Practitioner Electronically Signed By:FELIX SANTOS CNP On 11/09/2010 09:25 AM Source: [facility] MHSDOLBEYNONRADSYS Document Id: [id number] IMEN COLLECTOR documented in this encounter Miscellaneous Notes Miscellaneous - Felix Santos APRN, C.N.P. - 11/08/2010 9:20 AM CST Ambulatory Patient Summary [address] [address] Visit Information Name: YAMEL MARCELO Current Date: 11/08/2010 09:20:05 Primary Care Provider: FELIX SANTOS CNP [phone] Your Medications Here is a list of [...] Test/Treatment Last Done Next Due Additional Information Screening Mammogram every 1 year Women 40-75 03/23/2010 03/23/2011 X-rays of breast to check for breast cancer. Lipid Panel every 5 years Age 20-75 01/15/2010 01/14/2015 Checks blood for good (HDL) and bad (LDL) cholesterol. Know your numbers, they are one indicator of your risk for heart attack and stroke. Vaccine: Tetanus every 10 years 03/23/2010 03/20/2020 Immunization to help prevent you from getting the serious disease Tetanus (Lockjaw). Your Upcoming Appointments Date Time Location Reason Provider No Appointments found Your Goals/Additional instructions: Source: [facility] POWERCHART Document Id: [id number] Electronically signed by [facility] Tongue Lining Stitcher [id number] at 03/19/2017 10:13 AM CDT Miscellaneous - Felix Santos APRN, C.N.P. - 11/08/2010 9:20 AM CST Ambulatory Depart Summary [address] [address] Visit Information Name: YAMEL MARCELO Current Date: 11/08/2010 09:20:04 Primary Care Provider: FELIX SANTOS [facility] [phone] YAMEL MARCELO has been given the following [...] to the patient and/or family, guardian/caregiver. Source: [facility] POWERCHART Document Id: [id number] Electronically signed by Sven, [facility] Tongue Lining Stitcher [id number] at 03/19/2017 10:13 AM CDT Miscellaneous - Conversion, Historical Provider Ser - 11/08/2010 9:05 AM SPECIMEN COLLECTOR Adult Tile Decorator Intake/History Adult Tile Decorator Intake/History Entered On: 11/08/2010 9:06 SPECIMEN COLLECTOR Performed On: 11/08/2010 9:05 SPECIMEN COLLECTOR by JAMIE LOMAS LPN Intake Chief Complaint: pap had abnormal one in March repeat Temperature Core: 37.6C(Converted to: 99.7DegF) Peripheral Pulse Rate: 80/min Systolic Blood Pressure: 110mmHg Diastolic Blood Pressure: 60mmHg NIBP Mean: 77mmHg BP Location: Left upper extremity Height: 177.00cm(Converted to: 5ft 10in, 69.69in) Actual Weight: 78.000kg(Converted to: 171lb 15oz) Dosing Weight Clinic: 78.00kg Clinic BSA: 1.96 Body Mass Index: 25kg/m2 JAMIE LOMAS LPN - 11/08/2010 9:05 SPECIMEN COLLECTOR Subjective Pain Symptoms: No JAMIE LOMAS LPN - 11/08/2010 9:05 SPECIMEN COLLECTOR Dependent Habits Tobacco Use/Currently Using: No Alcohol Use: No JAMIE LOMAS LPN - 11/08/2010 9:05 SPECIMEN COLLECTOR Caffeine Use Grid Caffeine Use: Current Type: Soft drinks Frequency: Occasionally JAMIE LOMAS LPN - 11/08/2010 9:05 SPECIMEN COLLECTOR Recreational Drug Use Grid Drug Use: None JAMIE LOMAS LPN - 11/08/2010 9:05 SPECIMEN COLLECTOR Allergies Allergies (Active) NKA Estimated Onset Date: Unspecified ; Created By: JAMIE LOMAS LPN; Reaction Status: Active ; Category: Drug ; Substance: NKA ; Type: Allergy ; Updated By: JAMIE LOMAS LPN; Source: Patient ; Reviewed Date: 03/31/2010 13:58 CDT Source: [facility] POWERCHART Document Id: [id number] SPECIMEN COLLECTOR!27 documented in this encounter Plan of Treatment Not on filedocumented as of this encounter Procedures Procedure Name Priority Date/Time Associated Diagnosis Comme nts THINPREP SCREEN HPV Routine 11/08/2010 9:29 AM Re sults for this REFLEX SPECIMEN COLLECTOR procedure are i n the results section. documented in this encounter Results ThinPrep Screen HPV Reflex (11/08/2010 9:29 AM SPECIMEN COLLECTOR) [facility] Method Time Signature Interpretation [id number] POWERCHART HXPre Scrn See Comment POWERCHART [facility] Comment: A. ??ThinPrep Pap Test Screen (Cervical/ Endocervical HPV Reflex): Satisfactory for evaluation. Inadequate endocervical/transformation z one component Negative for intraepithelial lesion or m alignancy. Comment: An inadequate endocervical/jones sformational zone component is not necessarily an indicati on for immediately repeating the pap. Correlation with the history an d clinical exam are required. Screened at [facility] Cytology Analysi s Office [address] [place] [id number] See Comment KERI RCHART Comment: Report electronically signed by COSME Bourgeois(ASCP) 11/12/2010 11:52 Interpreted by: COSME Bourgeois(ASCP) [facility] See Comment POWERCHART Comment: A. ??ThinPrep Pap Test Screen (Cervical/ Endocervical HPV Reflex): Received cloudy specimen in ThinPrep via l. Test Performed by: [facility] Dpt of Lab Med and Pathology [address] [place] [id number] Biochemist: Mikael quinonez III, M.D. Specimen (Source) Anatomical Collection Method Collection Time Re ceived Time Location / / Volume Laterality Cervix/Endocervix 11/08/2010 9:29 AM SPECIMEN COLLECTOR Jose Maria Paz APRNNGertrudis LAB PAP PATHDX ORDERABLES Performing Organization Address City/State/ZIP Code Phon e Number POWERCHART documented in this encounter Visit Diagnoses Not on filedocumented in this encounter
--- OUTSIDE RECORDS SUMMARY | 2022-06-30 08:34 | XMS_ITS | Encounter Summary ---
:1960 Author Organization [facility] Address [address] [place] [address] Care Team Providers Name Role Phone Unavailable Primary Care Provider Unavailable Encounter Details Date Type Department Care Team Description 09/27/2011 Hospital Encounter HX [facility] NURSE ONRula Alvarenga, COUNSELING PSYCHOLOGIST, C.N.P. [address] [place] [address] (Wo rk) Social History Tobacco [...] Sig Dispensed Refills Start Date End Date cmiuyphlmziq-Cz-pirt-hand cloth examiner Take 1 tablet by 0 10/2009 als tablet mouth daily. documented as of this encounter Plan of Treatment Not on filedocumented as of this encounter Visit Diagnoses Not on filedocumented in this encounter
--- OUTSIDE RECORDS SUMMARY | 2022-06-30 08:34 | XMS_ITS | Encounter Summary ---
:1960 Author Organization [facility] Address [address] [place] [address] Care Team Providers Name Role Phone Unavailable Primary Care Provider Unavailable Encounter Details Date Type Department Care Team Description 10/04/2011 Hospital Encounter HX [facility] NURSE ONRula Alvarenga, GRAIN ELEVATOR MOTOR STARTER, C.N.P. [address] [place] [address] (Wo rk) Social History Tobacco [...] How often do you attend mu-ism or orthodox More than 4 time s per [...] Sig Dispensed Refills Start Date End Date ouyogjdruszu-Cx-fejm-wrapper layer and examiner soft work Take 1 tablet by 0 10/2009 als tablet mouth daily. documented as of this encounter Plan of Treatment Not on filedocumented as of this encounter Visit Diagnoses Not on filedocumented in this encounter
--- OUTSIDE RECORDS SUMMARY | 2022-06-30 08:35 | XMS_ITS ---
:1960 Author Care Team Providers Name Role Phone Sushant Jama Primary Care Provider Unavailable Allergies Code Code System Name Reaction Severity Status Onset NKDA ? Medications Name Status Start Date Stop Date ? ? acetic acid 0.25 % irrigation solution Active ? Not available USE SOLUTION TO IRRIGATE DIRECTED amitriptyline 25 mg tablet Active ? Not a vailable TAKE 1 TABLET BY MOUTH DAILY AT BEDTIME ammonium lactate 12 % topical cream Active ? Not available APPLY TO DRY LESIONS ON BODY ONCE A DAY AFTER SHOWERING amoxicillin 875 mg-potassium clavulanate 125 mg tablet Active ? Not available TAKE 1 TABLET BY MOUTH TWICE DAILY FOR 10 DAYS atorvastatin 20 mg tablet Active ? Not av ailable cefdinir 300 mg capsule Active ? Not avai lable cephalexin 500 mg capsule Active ? Not av ailable ciprofloxacin 0.3 %-dexamethasone 0.1 % ear drops,suspension Act [place] ? Not available PLACE 4 DROPS INTO THE RIGHT EAR THREE TIMES DAILY AND 4 DROPS INTO THE LEFT EAR TWICE DAILY ciprofloxacin 500 mg tablet Active ? Not available TAKE 1 TABLET BY MOUTH TWICE DAILY FOR 14 DAYS clobetasol 0.05 % topical ointment Active ? Not available doxycycline hyclate 100 mg capsule Active ? Not available TAKE 1 CAPSULE BY MOUTH TWICE DAILY FOR 10 DAYS doxycycline monohydrate 100 mg capsule Active ? Not available TAKE ONE CAPSULE BY MOUTH TWICE DAILY FOR 14 DAYS doxycycline monohydrate 50 mg capsule Active ? Not available mupirocin 2 % topical ointment Active ? N ot available APPLY TO AFFECTED AREA TWICE DAILY FOR 7 DAYS pentoxifylline ER 400 mg tablet,extended release Active ? Not available TAKE 1 TABLET BY MOUTH EVERY DAY verapamil ER 180 mg 24 hr capsule,extended release Active ? Not available TAKE 1 CAPSULE BY MOUTH EVERY DAY Problems None recorded. Procedures None recorded. Results Lab Results Date Name Specimen Result Interpretation Description Value Range Status Address ? 11/15/2021 SARS CoV 2 RNA, Nose (nasal ? Result positive ? ? [facility], KEC[facility]+probe, passage) Urgent Care Nose [place]: [address] , [place] Past Encounters 11/15/2021 Exposure to SARS-CoV-2 [facility]ENT [facility]: [address], [place], [place] [address], Ph. Social History None recorded. Vaccine List Vaccine Type COVID-19, mRNA, LNP-S, PF, 100 mcg/0.5 m L dose (Moderna) 10/22/2021 influenza, injectable, quadrivalent 07/08/2015 07/28/2016 07/13/2017 07/11/2019 influenza, injectable, quadrivalent, pre servative free 09/18/2018 influenza, seasonal, injectable 09/25/2012 08/04/2013 influenza, unspecified formulation 07/22/2014 08/05/2015 Tdap 03/23/2010 Plan of Care Patient Instructions Covid 19 infx, patient doing well, no w orrisome findings seen, symptomatic cares advised. Patient verbally agrees to this plan. Discussed rapid covid results with nora gutierrez and recommended quarantine per CDC guidelines. Patient to follow up with work for further guidelines. Patient appears well, vitals stable and no immediate conc erns. Patient understands and agrees wit h treatment plan and instructions. Symptom management discussed. Medication side effects discussed. Discussed risks? benefits? alternatives? side effects of treatment. If symptoms p rogress or worsen, patient should proceed to the emergency room immediately. All questions answered. Push fluids and rest. Tylenol or Ibuprofen as needed for pain or fever. Contact PCP to discuss treatment (oral v s other) options if meeting criteria. See below: (How to Find Infusion Locations You can find infusion locations in your area: ? by visiting https://protect-public.hhs .gov/pages/therapeutics-distribution, OR ? by calling for British, or for [place]ian) See care instructions. PCP follow up in 4-5 days if not improvi ng, sooner if problems, to ED if worsening. Reminders Provider Appointments None recorded. ? ? Lab None recorded. ? ? Referral None recorded. ? ? Procedures None recorded. ? ? Surgeries None recorded. ? ? Imaging None recorded. ? ? Vitals Blood Pressure 125/83 mm[Hg]
== END 2022-06-30 08:29 | disposition home or self-care (01) ==
LOC: WOUND 08:28
PROVIDERS: Visit Provider Nurse Practitioner Family
DX: L59.9 Disorder of the skin and subcutaneous tissue related to radiation, unspecified (principal)
CPT/HCPCS: 99212

== ENCOUNTER 2024-08-22 07:54 | Outpatient (CLI) | payer OTHER, SELFPAY ==
--- OUTSIDE RECORDS SUMMARY | 2024-08-22 08:00 | XMS_ITS | Encounter Summary ---
Author Organization [facility] Address [address] [place] [address] Care Team Providers Care Box Turner Name Role Phone Britney Ramirez APRN, C.N.PKarol, D.N.P. P [facility] Care Provider Reason for Referral * Outpatient (Routine) - Authorized Specialty Diagnoses / Procedures Referred By Contac t Referred To Contact Dermatology Brittany Cazares M.D. [address] [place] [phone] Phone: tel: fax: [facility] Referral ID Status Reason Start Date Expiration Date V isits Requested Visits Authorized [id number] Authorized 08/20/2024 02/19/2026 1 1 Scheduling Instructions Recheck MMS to left masters CIATE DIRECTOR FINANCE Reason for Visit * Reason Comments Wound Check UNNA boot * Outpatient (Routine) - Closed Specialty Diagnoses / Procedures Referred By Contac t Referred To Contact Dermatology Brittany Cazares M.D. [address] [place] [phone] Phone: tel: fax: [facility] Referral ID Status Reason Start Date Expiration Date Visits Re quested Visits Authorized [id number] Closed 08/13/2024 02/12/2026 1 1 Encounter Details Date Type Department Care Team (Late st Contact Info) Description 08/20/2024 2:15 PM ASSOCIATE DIRECTOR FINANCE Nurse Only Department of Dermatology in [place], [place] [address] [place] [phone] Brittany Cazares M.D. [address] [place] [phone] Criss Malone M.S.N., R.N. Wound Check (UNNA boot) Social History Tobacco Use Types Packs/Day Years Used Date Smoking Tobacco: Never Smokeless Tobacco: Never Alcohol Use Standard Drinks/Week Comments Not Currently 0 (1 standard drink = 0.6 oz pur e alcohol) [facility] Utilities Answer Date Recorded In the past 12 months has e HOSTING, gas, oil, or water [employer] threatened to shut off services in your home? No 04/16/2024 Humiliation, Afraid, Rape, and Kick questionnair e Answer Date Recorded Within the last year, have y ou been afraid of your partner or ex-partner? No 10/28/2022 Within the last year, have y ou been humiliated or emotionally abused in other ways by your partner or ex-partner? No Within the last year, have y ou been kicked, hit, slapped, or otherwise physically hurt by your partner or ex-partner? No 10/28/2022 Within the last year, have y ou been raped or forced to have any kind of sexual activity by your partner or ex-partner? No 10/28/2022 Social Connection and Isolation Panel [NHANES] A nswer Date Recorded In a typical week, how many times do you talk on the phone with family, friends, or neighbors? Patient declined 10/28/2022 How often do you get togethe r with friends or relatives? Patient declined 10/28/2022 How often do you attend episcopalian or confucianism serv ices? Patient declined 10/28/2022 Do you belong to any clubs o r organizations such as episcopalian groups, unions, fraternal or athletic groups, or school groups? Patient declined 10/28/2022 How often do you attend meet ings of the clubs or organizations you belong to? Patient declined 10/28/2022 Are you , , di vorced, , never , or living with a partner? 10/28/2022 AUDIT-C Answer Date Recorded Q1: How often do you have a drink containing alc ohol? Never 10/28/2022 Average Number of Drinks Not on file 023 Frequency of Binge Drinking Not on file 10/16 Overall Financial Resource Strain (CARDIA) Answe r Date Recorded How hard is it for you to pa y for the very basics like food, housing, medical care, and heating? Patient declined 10/28/2022 PHQ-2 Answer Date Recorded PHQ-2 Score 0 11/07/2022 [facility] - Occupational Stress Questionnaire Answer Date Recorded Do you feel stress - tense, restless, nervous, or anxious, or unable to sleep at night because your mind is troubled all the time - these days? Patient declined 10/28/2022 Exercise Vital Sign Answer Date Recorde d On average, how many days pe r week do you engage in moderate to strenuous exercise (like a brisk walk)? 7 days 04/16/2024 On average, how many minutes do you engage in exercise at this level? 90 min 04/16/2024 Hunger Vital Sign Answer Date Recorded Within the past 12 months, y ou worried that your food would run out before you got the money to buy more. Never true 04/16/20 24 Within the past 12 months, t he food you bought just didn't last and you didn't have money to get more. Never true 04/16/2024 PRAPARE - Transportation Answer Date Re corded In the past 12 months, has l ack of transportation kept you from medical appointments or from getting medications? No 11/2023 In the past 12 months, has l ack of transportation kept you from meetings, work, or from getting things needed for daily living? No 04/16/2024 Nutrition Answer Date Recorded On average, how many serving s of fruits and vegetables do you eat per day (serving size is equal to 1 cup or approximately the size of a tennis ball)? 5 or more 04/16/2024 Dental Answer Date Recorded Dental: Regular Dentist Yes 10/12/20 Employment Answer Date Recorded Employment status Retired 04/16/2024 Housing Stability Answer Date Recorded What is your living situation today? I have a thong place to live 04/16/2024 Education Answer Date Recorded What is the highest level of school you have completed or the highest degree you have received? Associate degree: occupational, technical, or vocational program 02/02/2021 Comments No Sex and Gender Information Value Date Recorded Sex Assigned at Female 12/15/2022 12:54 PM ASSOCIATE DIRECTOR FINANCE Legal Sex Female 11:38 PM ASSOCIATE DIRECTOR FINANCE Gender Identity Female 09/19/2017 11:16 AM ASSOCIATE DIRECTOR FINANCE Sexual Orientation Straight 09/19/2017 11 :16 AM ASSOCIATE DIRECTOR FINANCE documented as of this encounter Progress Notes * Criss Malone M.S.N., R.N. 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 Patient denies any pain, fever or chills and admits to tolerating her doxycycline. UNNA boot removed and area cleansed with normal saline. Wound bed appears has slight erythema. Photos uploaded to [employer]. Dr. Cazares viewed the photos and recommends: - To apply Mupirocin/Telfa to wound and reapply UNNA boot - RTC in 1 week for wound check UNNA boot reapplied and patient advised to follow same instructions as last visit. All questions answered. CIATE DIRECTOR FINANCE documented in this encounter Plan of Treatment Upcoming Encounters Date Type Department Care Team (Late st Contact Info) Description 08/28/2024 3:00 PM ASSOCIATE DIRECTOR FINANCE Nurse Only Department of Dermatology in [place], [place] [address] [place] [phone] Brittany Cazares M.D. [address] [place] [address] Scheduled Referrals Name Type Priority Associated Diagnoses Order Schedule Dermatology nurse visit (clinic) Outpatient Referral Routine Expected: 08/27/2024 (Approximate), Expires: 11/18/2024 documented as of this encounter Visit Diagnoses Diagnosis Wound Care Skin Post Surgery [Z48.817]- Primary documented in this encounter Additional Health Concerns Assessment Noted Time PHQ-9 Depression Total Score: 0 09/19/20 17 8:32 AM ASSOCIATE DIRECTOR FINANCE documented as of this encounter Care Teams Box Turner Relationship Specialty Start Date End Date Jv-Britney Bass APRN, C.N.P., D.N.P. [address] [place] [address] PCP - General 04/10/23 documented as of this encounter
--- OUTSIDE RECORDS SUMMARY | 2024-08-22 08:00 | XMS_ITS | Encounter Summary ---
Author Organization [facility] Address [address] [place] [address] Care Team Providers Care Search Engine Optimization Strategist Name Role Phone Britney Ramirez APRN, C.N.P., D.N.P. P [facility] Care Provider Encounter Details Date Type Department Care Team (Late st Contact Info) Description 08/13/2024 11:35 AM CDT Ancillary Procedure Department of Dermatology Social History Tobacco Use Types Packs/Day Years Used Date Smoking Tobacco: Never Smokeless Tobacco: Never Alcohol Use Standard Drinks/Week Comments Not Currently 0 (1 standard drink = 0.6 oz pur e alcohol) [facility] Utilities Answer Date Recorded In the past 12 months has [employer], gas, oil, or water [email or web address] threatened to shut off services in your [...] declined 10/28/2022 How often do you attend restorationism or taoist serv ices? Patient declined 10/28/2022 Do you belong to any clubs o r organizations such as restorationism groups, unions, fraternal or [...] Answer Date Recorded PHQ-2 Score 0 11/07/2022 [facility] - Occupational Stress Questionnaire Answer Date Recorded [...] your living situation today? I have a [facility] place to live 04/16/2024 Education Answer Date Recorded What is the highest level of school you have completed or the highest degree you have received? Associate degree: occupational, technical, or vocational program 02/02/2021 Comments No Sex and Gender Information Value Date Recorded Sex Assigned at Female 12/15/2022 12:54 PM RAPID OUTSOLE STITCHER Legal Sex Female 11:38 PM RAPID OUTSOLE STITCHER Gender Identity Female 09/19/2017 11:16 AM RAPID OUTSOLE STITCHER Sexual Orientation Straight 09/19/2017 11 :16 AM RAPID OUTSOLE STITCHER documented as of this encounter Plan of Treatment Upcoming Encounters Date Type Department Care Team (Late st Contact Info) Description 08/28/2024 3:00 PM RAPID OUTSOLE STITCHER Nurse Only Department of Dermatology in [place], [place] [address] [place] [address] Brittany Cazares M.D. [address] [place] [phone] documented as of this encounter Procedures Procedure Name Priority Date/Time Associated Diagnosis Comments DERMATOLOGY IMAGE EXAM Routine 08/13/2024 11:35 AM CDT documented in this encounter Results * Leg left 528b-Dermatology Image Exam (08/13/2024 11:35 AM CDT) 08/13/2024 11:3 4 AM CDT Narrative [facility] - 08/13/2024 11:36 AM CDT This order has been created and auto-finalized to support the import of images acquired without order. The clinical documentation to support these images can be found on the encounter that produced images. us Provider Not In System IMG NON RAD IMAGING PROCE DURMAXIMINO Final Result [facility] NA documented in this encounter Visit Diagnoses Not on filedocumented in this encounter Additional Health Concerns Assessment Noted Time PHQ-9 Depression Total Score: 0 09/19/20 17 8:32 AM RAPID OUTSOLE STITCHER documented as of this encounter Care Teams Search Engine Optimization Strategist Relationship Specialty Start Date End Date Britney Ramirez APRN, C.N.P., D.N.P. [address] [address] PCP - General 04/10/23 documented as of this encounter
--- OUTSIDE RECORDS SUMMARY | 2024-08-22 08:00 | XMS_ITS ---
Author Organization [facility] Address [address] [place] [address] Care Team Providers Care Insurance Agent Name Role Phone Unavailable Unavailable Unavailable Surgery Details Not on file Complications Check Surgery Details section. Procedure Estimated Blood Loss Check Surgery Details section. Procedure Findings Check Surgery Details section. Procedure Specimens Taken Check Surgery Details section.
--- OUTSIDE RECORDS SUMMARY | 2024-08-22 08:00 | XMS_ITS | Clinical Summary ---
Author Organization [facility] Address [address] [place] [address] Care Team Providers Care Traffic Incident Management Manager Name Role Phone Britney Ramirez APRN, C.N.P., D.N.P. [facility] Care Provider Source Comments Patient records contain information from all sites at [facility]. For routine questions regarding patient records, call [phone] during business hours, M-F 8:00 AM - 5:00 PM Central Time. Record requests for emergency care only can be directed to [phone] at any time.[facility] Allergies Active Allergy Reactions Criticality Noted Date Comments Adhesive Other (see comments) 01/21/2021 Skin itchy, bumpy and skin reddened in area covered by bandaid Titanium Other (see comments) 02/21/2018 Medications * This document contains information received from the source organization and may not represent a complete record from that organization. B complex-vitami ns (BALANCE B-50) tablet Take 1 tablet by mouth daily. 07/09/20 14 Active FSH/FLX/PRIM/C UR/BOR/OM3,6,9 5 (OMEGA 3-6-9 FATTY ACIDS ORAL) Take 1 capsule by mouth daily. 01/22/20 14 Active calcium carbonate-ricky min D3 600 mg-5 mcg (200 unit) capsule Take 1 tablet by mouth daily. 04/04/20 12 Active multivitamin-C v-euyr-guvhesf s tablet Take 1 tablet by mouth daily. 01/15/20 10 Active verapamiL (VERELAN) 180 mg 24 hr capsuleIndicat ions:Raynaud's Disease Take 1 capsule (180 mg total) by mouth daily as needed (Reynaud's disease). 30 capsule 1 04/14/20 21 Active ammonium lactate (AMLACTIN) 12 % cream APPLY TO DRY LESIONS ON BODY ONCE A DAY AFTER SHOWERING 08/28/20 Active tretinoin (RETIN-A) 0.05 % cream APPLY SMALL AMOUNT TO FACE EVERY OTHER NIGHT, INCREASING TO NIGHTLY. MOISTURIZE AFTER. 08/29/20 22 Active fluticasone propionate (Flonase) 50 mcg/actuation nasal sprayIndicatio ns:Sinusitis Acute Maxillary ADMINISTER 1 SPRAY INTO EACH NOSTRIL TWICE DAILY. USE OVER THE NEXT 10-14 DAYS FOR SINUS AND EAR CONGESTION. 48 g 3 06/05/20 24 Active atorvastatin (Lipitor) 10 mg tabletIndicati ons:Hyperchole sterolemia take 1/2 tablet by mouth every day 30 tablet 07/30/20 24 Active ciclopirox (Loprox) 0.77 % cream Apply 1 Application topically 2 (two) times a day. Gently massage into affected areas and surrounding skin 30 g 2 08/06/20 24 024 Active doxycycline monohydrate (Monodox) 100 mg capsule Take 1 capsule (100 mg total) by mouth 2 (two) times a day before morning and evening meals for 14 days. 28 capsule 08/13/20 24 024 Active chlorhexidine (PERIDEX) 0.12 % mouthwash RINSE WITH 1 CAPFUL TWICE DAILY 12/09/19 23 024 Discontinued(T herapy completed) atorvastatin (LIPITOR) 10 mg tablet Take 0.5 tablets (5 mg total) by mouth daily. 90 tablet 01/17/20 24 024 Discontinued Active Problems Patient Care Coordination No te Formatting of this note migh t be different from the original. Authorization to Disclose Protected Health Information to Jake Osorio () Problem Noted Date Diagnosed Date Palpitations 12/23/2022 Overview (12/23/2022): Holter monitor completed Nov 2022 - sinus arrhythmia. Sclerosis Aortic Valve 12/23/2022 Fibromyalgia 11/07/2022 Overview (11/07/2022): She self- reports a diagnosis of Fibromyalgia. Infection Wound Postoperative Subsequent 021 Overview (01/14/2021): Infection and nonhealing surgical wound from removal of cancerous lesion anterior mid tibial shaft area right leg. Assessment & Plan (02/17/2021 8:49 AM CDT): Amanda is here for wound care of a cancer excision that was removed from her mid tibial shaft of the right leg. The area of the wound is 2 cm x 2 cm. There is no open area. The wound is healed. She has a dark staining on 2% of the wound from silver dressing. The wound was cleansed with saline and Hibiclens rinse well and dried. Skin prep was applied with a small medical legs border light. She will keep the area covered so the new skin well rub on her pants. She is discharged from wound care and will return only if needed Assessment & Plan (02/03/2021 4:04 PM CDT): The wound on her right into mid [...] with saline and dried. KerraCel AG was applied with a thin layer of me pie rescind. Skin prep was applied around the periwound skin and Telfa island dressing was applied. She will do every other dressing changes and return in 2 weeks for ongoing wound care Assessment & Plan (01/27/2021 2:10 PM CDT): Wound care of excisional wound right mid tibial shaft for cancerous lesion removal. She is currently taking Cipro 500 mg twice a day for 2 weeks. She was under the care of [facility] in [place]. She also sees a chiropractor who does laser treatments to increase circulation. She went on Monday and will go back on . The wound measures 3.5 x 2 x 0.1 deep. The wound bed shows 20% granulation 80% slough. There is a deeper area of erythema in the periwound area. This is not warm to touch. It does not streak. She feels it is from the laser treatment she is receiving from the chiropractor to stimulate healing The wounds cleansed with saline and Hibiclens rinse well and dried. Santyl was applied to the wound bed covered with sterile 2 x 2 and a Telfa island dressing. She will continue daily dressing changes at home and return 1 week. Assessment & Plan (01/21/2021 4:27 PM CDT): Amanda returns for wound care of surgical incision right cancers lesion mid tibial shaft. She got the wound culture results from [facility]. The wound is growing Pseudomonas and Serratia. She also has scattered yeast. She was placed on Cipro 500 twice a day for 7 days. She is also seeing the chiropractor who was doing a laser treatment on her leg to promote blood flow and healing. She states he does not touch [...] around the periwound skin and a Telfa island dressing was applied. The plan is to use Santyl for 1 more week and then convert to a silver dressing. She is wearing compression stockings. She has no edema in the leg. She will return in 1 week. Assessment & Plan (01/14/2021 6:06 PM CDT): Amanda had a cancerous lesion removed with 21 radiation treatments. She has been receiving wound care through [facility] in [place]. She has been a a series of antibiotics since October and November. She is currently on cephalexin. She had wound culture done at the emergency care attendant yesterday and results are pending. She had EpiFix applied through the Dermatology office. EpiFix is amniotic tissue which stimulates cell growth. She states it did not do much for healing. The wound on the anterior mid tibial shaft area the right lower leg measures 2.5 cm x 2 cm x 0.1 cm. The wound is mostly slough with to bubbles [...] ER for the cellulitis. She verbalized understanding. Acne Rosacea 09/30/2014 Nodule Thyroid 04/28/2014 Overview (12/23/2022): 04/24/[address] showed 2.1 cm nodule at the thyroid isthmus. 05/06/2014 thyroid ultrasound showed multinodular thyroid, largest on the right measuring 1.1 cm. Largest on the left measuring 1.0 cm. 05/07/2015 thyroid ultrasound showed multiple bilateral partially cystic thyroid lobe nodules. Nodules within the right lobe measuring less than 1 cm. Multiple left lobe nodules measuring between 1.3-1.4 cm maximal dimension. These are nearly completely cystic with thin inferior medial right lobe and right isthmus w heterogeneous predominantly solid nodule with cystic components 2.1 x 2.8 x 1.8 cm w vascular flow. 06/12/2015 FNA of the Thyroid, Midline Isthmus: Negative for malignancy. Cytologic features consistent with benign thyroid nodule with degenerative changes. Ultrasound Nov 2022: Intermediate suspicious nodules. Repeat in 1-3 years. Assessment & Plan (11/09/2022 12:36 PM STILL CLEANER): Based on the above history and the current thyroid nodule clinical pathway outlined in ROHAN, she is due for a repeat ultrasound of the thyroid. Also, consider repeating TSH to make sure the nodules aren't metabolically active/secreting thyroid hormone. 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 Varicose Vein Lower Extremity 06/11/2010 09/19/2017 Encounters Date Type Department Care Team Description 08/20/2024 2:40 PM STILL CLEANER Ancillary Procedure Department of Dermatology Arrived 08/20/2024 2:15 PM STILL CLEANER Nurse Only Department of Dermatology in [address] [phone] Brittany Cazares M.D. Criss Malone M.S.N., R.N. Wound Check (UNNA boot) 08/13/2024 11:35 AM CDT Ancillary Procedure Department of Dermatology 08/13/2024 11:30 AM CDT Procedure visit Department of Dermatology in [place], [place] [address] [place] [address] Brittany Cazares M.D. 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 08/08/2024 Clinical Communication Department of Dermatology in [place], [place] [address] [place] [address] Delaney Rivera M.D. 08/06/2024 11:15 AM CDT Ancillary Procedure Department of Dermatology 08/06/2024 10:45 AM CDT Comprehensive Visit Department of Dermatology in [place], [place] [address] [place] [address] Delaney Rivera M.D. Neoplasm Uncertain Behavior Skin (Primary Dx); Cancer Skin Squamous Cell Personal History; Keratosis Seborrheic; Lentigo; Angioma Gutierrez; Nevi Multiple; Dermatitis Seborrheic; Keratosis Seborrheic Inflamed 07/30/2024 Refill [facility] in [place], [place] [address] [place] [address] Britney Ramirez APRN, C.N.P., D.N.P. Med Refill 07/27/2024 Refill [facility] in [place], [place] [address] [place] [address] Jarrell Coronel, P.A.-C. Med Refill 06/05/2024 Refill [facility] in [place], [place] [address] [place] [address] Britney Ramirez APRN, C.N.P., D.N.P. Med Refill from Last 3 Months Immunizations Name Administration Dates Next Due Influenza, Injectable, Quadrivalent 07/11/2019,0 07/13/2017,07/08/2015 Influenza, Unspecified 07/29/2016,2014,07/22/2014,2012,09/25/2012 Tdap 11/07/2022,03/23/2010 influenza vaccine quad (FLUZONE/FLUARIX) (6 months and older)(PF) 09/12/2022,09/18/2018 Family History Medical History Relation Name Comments Melanoma Father Skin cancer Father Brain Tumor Mother Hyperlipidemia Mother Melanoma Sister Madelyn Relation Name Status Comments Father Mother Sister Madelyn Social History Tobacco Use Types Packs/Day Years Used Date Smoking Tobacco: Never Smokeless Tobacco: Never Tobacco Cessation:Counseling Given: Not Answered Alcohol Use Standard Drinks/Week Comments Not Currently 0 (1 standard drink = 0.6 oz pur e alcohol) [facility] Utilities Answer Date Recorded In the past 12 months has e [employer], gas, oil, or water [employer] threatened to shut off services in your [...] declined 10/28/2022 How often do you attend latter-day or congregational serv ices? Patient declined 10/28/2022 Do you belong to any clubs o r organizations such as latter-day groups, unions, fraternal or athletic groups, or [...] Answer Date Recorded PHQ-2 Score 0 11/07/2022 [facility] - Occupational [...] your living situation today? I have a [facility] place to live 04/16/2024 Education Answer Date Recorded What is the highest level of school you have completed or the highest degree you have received? Associate degree: occupational, technical, or vocational program 02/02/2021 Comments No Sex and Gender Information Value Date Recorded Sex Assigned at Female 12/15/2022 12:54 PM STILL CLEANER Legal Sex Female 11:38 PM STILL CLEANER Gender Identity Female 09/19/2017 11:16 AM STILL CLEANER Sexual Orientation Straight 09/19/2017 11 :16 AM STILL CLEANER Last Filed Vital Signs Vital Sign Reading Time Taken Comments Blood Pressure 127/85 08/13/2024 11:24 AM CDT Pulse 84 08/13/2024 11:24 AM CDT Temperature 37.2 ??C (99 ??F) 08/13/2024 11:24 AM CDT Respiratory Rate 18 08/13/2024 11:24 AM CDT Oxygen Saturation 100% 08/13/2024 11:24 AM CDT Inhaled Oxygen Concentration - - Weight 73.3 kg (161 lb 9.6 oz) 12/23/2022 11:00 AM STILL CLEANER Height 176.2 cm (5' 9.37) 12/23/2022 11:[address] Body Mass Index 23.61 12/23/2022 11:00 AM STILL CLEANER Plan of Treatment Upcoming Encounters Date Type Department Care Team (Late st Contact Info) Description 08/28/2024 3:00 PM STILL CLEANER Nurse Only Department of Dermatology in [place], [place] [address] [place] [address] Brittany Cazares M.D. [address] [place] [phone] Health Maintenance Due Date Last Done Comments CT Colonography 1960 Cologuard 1960 HIV Screening 1960 Zoster Vaccines (2 of 2) 03/06/2023 01/09/2023 Depression Screening (Annual PHQ-2) 10/16/2023 COVID-19 Vaccine ( season) 2024 10/22/2021 Influenza Vaccine (#1) 2024 , 07/11/2019, 09/18/2018, Additional history exists Mammogram 11/03/2024 11/03/2023, 10/16, 10/26/2021, Additional history exists Fasting Glucose for Diabetes Screening 12/15/2025 12/15/2022, 09/22/2021, 09/18/2018, Additional history exists Colonoscopy 01/05/2026 01/05/2023, 09/15 (Performed elsewhere), 06/14/2012 Colorectal Cancer Surveillance 01/05/2026 Lipid (Cholesterol) Screening 12/28/2028 12/29/2023, 09/27/2022, 08/17/2022, Additional history exists DTaP,Tdap,and Td Vaccines (3 - Td or Tdap) 11/07/2032 11/07/2022, 03/23/2010 IPV Vaccines Aged Out No longer eligi ble based on patient's age to complete this topic Pneumococcal vaccine (0-64 years) Aged Out No longer eligible based on patient's age to complete this topic Procedures Procedure Name Priority Date/Time Associated Diagnosis Comments DERMATOLOGY IMAGE EXAM Routine 4 2:39 PM STILL CLEANER DERMATOLOGY IMAGE EXAM Routine 4 11:35 AM CDT LEELEE MOHS SINGLE SITE Routine 08/13/2024 11:30 AM CDT 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 DERMATOPATHOLOGY Routine 08/06/2024 11:29 AM CDT Neoplasm Uncertain Behavior Skin DERMATOLOGY IMAGE EXAM Routine 4 11:15 AM CDT LIPID PANEL, S Routine 12/29/2023 8:58 AM CDT General Medical Examination Adult BI BREAST SCREENING BILATERAL WITH TOMOSYNTHESIS RAD - Routine (most inpatients and all outpatients) 11/03/2023 10:12 AM STILL CLEANER Screening Mammogram Breast Cancer GLUCOSE, FASTING, S/P Routine 12/15/2022 9:25 AM STILL CLEANER Screening Test Laboratory from Last 3 Months or Most Recently Relevant to Health Maintenance Results * Leg left 528b-Dermatology Image Exam (08/20/2024 2:39 PM STILL CLEANER) Only the most recent of3 resultswithin the time period is included. 08/20/2024 2:36 PM STILL CLEANER Narrative IIMS - 08/20/2024 2:39 PM STILL CLEANER This order has been created and auto-finalized to support the import of images acquired without order. The clinical documentation to support these images can be found on the encounter that produced images. us Provider Not In System IMG NON RAD IMAGING PROCE DURES Final Result [facility] NA * [facility] single site (08/13/2024 11:30 AM CDT) Narrative Brittany Cazares M.D. - 08/13/2024 11:30 AM CDT Brittany Cazares M.D. ? 08/14/2024 ??1:03 PM PREOP INDICATION: REMOVAL. Date of Surgery: 08/13/2024 Surgeon: Dr. Wilam Cazares M.D. Location: [facility] Visit Type: Outpatient PostOp Diagnosis: same Anatomic Location: left masters Preoperative size: 1.4 x 1.5 cm [facility] number: [id number] Indication(s) for Mohs Micrographic Surgery: anatomic location where tissue conservation is critical and ill-defined clinical margins Procedure(s): Mohs Micrographic Surgery with Second-Intention Wound Healing. Procedural pause conducted to verify: correct patient identity, procedure to be performed and as applicable, correct side and site, correct patient position, and availability of implants, special equipment or special requirements. INFORMED CONSENT Discussed the risks, benefits, alternatives, and the necessity of other members of the healthcare team participating in the procedure. ??All questions answered and consent given. PATIENT EDUCATION Ready to learn, no apparent learning barriers were identified; learning preferences include listening. ??Explained diagnosis and treatment plan; patient expressed understanding of the content. Preoperative medications: ?? - Acetaminophen 500-mg by mouth once The anesthesia used was 1% lidocaine with 1:100,000 epinephrine. ?? The skin was prepped in a sterile fashion with Hibiclens. Histologic tumor-free margins were obtained in 2 stages (1, 1 blocks) by standard Mohs micrographic techniques with the Mohs surgeon performing both the surgery and pathology. ??The final defect depth was down to level of: dermis. Postoperative size: 1.8x 2.0 cm. After discussing the options for wound management, it was decided to allow the wound to heal by second intention and assess the cosmetic and functional outcome at a later date. ?? Estimated blood loss: Minimal. ?? Complications: None. ?? Wound care: Routine. Postoperative medications: doxycycline 100-mg BID x 14 days - Additionally advised field therapy to the left masters using [id number]-[id number] twice daily for 14-21 days once the skin of the masters has completely healed from today's procedure. --- Wilma Cazares M.D. Delaney Rivera M.D. DERM PROCEDURE ORDERABLES F inal Result * Dermatopathology (08/06/2024 11:29 AM CDT) 08/08/2024 8:53 AM CDT MKTO Report Electronically Signed By Quinton Wallace M.D. I verify that I have examined all relevant slides/materials for the specimen(s) and rendered or confirmed the diagnosis. 08/08/2024 8:53 AM CDT MKTO Gross Description Submitted as left masters is a skin shave, 0.7 x 0.5 x 0.2 cm, inked black and bisected. ESB, one block. ?? af/eae/nm 08/08/2024 8:53 AM CDT MKTO Specimen Source A. Left masters 8:53 AM CDT MKTO Clinical Information Squamous cell carcinoma 08/08/2024 8:53 AM CDT MKTO Interpretation FINAL DIAGNOSIS A. Skin, left masters, shave biopsy: ??SQUAMOUS CELL CARCINOMA, WELL DIFFERENTIATED NOTE: ??The carcinoma extends to the deep margin. ??There are some features suggesting a resolving/partial ly resolved keratoacanthomato us type of squamous cell carcinoma. Digital imaging was used in the diagnostic assessment of this case. 08/08/2024 8:53 AM CDT MKTO Skin 08/06/2024 11:2 9 AM CDT 08/06/2024 2:38 PM CDT us Delaney Rivera M.D. LAB PATH DERM ORDERABLES Fi nal Result [facility] [address] [place] [address], [facility] MKTO [address] [facility] [address] [place] [id number] * Lipid Panel (12/29/2023 8:58 AM CDT) Triglycerides 52 mg/dL 12/29/2023 2:13 PM CDT OWAT Comment: ----REFERENCE VALUE---- Normal: <150 mg/dL Borderline High: 150-199 mg/dL High: 200-499 mg/dL Very High: > or =500 mg/dL Cholesterol, Total 175 mg/dL 2023 2:13 PM CDT OWAT Comment: ----REFERENCE VALUE---- Desirable: < 200 mg/dL Borderline High: 200 - 239 mg/dL High: > or = 240 mg/dL Cholesterol, LDL, Calculated 101 mg/dL 12/29/2023 2:13 PM CDT OWAT Comment: ----REFERENCE VALUE---- Desirable: <100 mg/dL Above Desirable: 100-129 mg/dL Borderline High: 130-159 mg/dL High: 160-189 mg/dL Very High: >=190 mg/dL ----ADDITIONAL INFORMATION---- LDL cholesterol calculated using the Witt/NIH equation. Cholesterol, HDL 64 >=50 mg/dL 12/29/19 2:13 PM CDT OWAT Cholesterol, Non-HDL, Calculated 111 mg/dL 12/29/2023 2:13 PM CDT OWAT Comment: ----REFERENCE VALUE---- Desirable: <130 mg/dL Above Desirable: 130-159 mg/dL Borderline High: 160-189 mg/dL High: 190-219 mg/dL Very High: > or =220 mg/dL Fasting (8 HR or more) yes 12/29/2023 1:08 PM CDT OW[facility] Blood (Blood, Venous) 12/29/2023 8:58 AM CDT 12/29/2023 1:08 PM CDT Janice SKINNER PKarolAArnold LAB BLOOD ADD-ON Final Result [facility] [address] [place] [address], [facility] [place] [address] [place] [address] * BI Breast Screening Bilateral with Tomosynthesis (11/03/2023 10:12 AM STILL CLEANER) Anatomical Region Laterality Modality Breast, Breast Imaging RST L OS, Breast Imaging ARZ LOS, Breast Imaging FLA LOS Bilateral Mammography Impressions 11/03/2023 10:34 AM STILL CLEANER Negative. RECOMMENDATION: ??Annual Screening Mammogram ASSESSMENT: ??BI-RADS: 1: Negative. Narrative 11/03/2023 10:34 AM STILL CLEANER EXAM: ??BI BREAST SCREENING BILATERAL WITH TOMOSYNTHESIS Current study was evaluated with a Computer Aided Detection (CAD) system. INDICATION: ??Screening mammogram. COMPARISON: ??Prior exam(s) were available and reviewed for comparison. DENSITY: ??c. The breast(s) are heterogeneously dense, which may obscure small masses. FINDINGS: ??No mammographic findings of malignancy. Procedure Note Oscar Valdivia M.D. - 11/03/2023 EXAM: BI BREAST SCREENING BILATERAL WITH TOMOSYNTHESIS Current study was evaluated with a Computer Aided Detection (CAD) system. INDICATION: Screening mammogram. COMPARISON: Prior exam(s) were available and reviewed for comparison. DENSITY: c. The breast(s) are heterogeneously dense, which may obscuresmall masses. FINDINGS: No mammographic findings of malignancy. IMPRESSION: Negative. RECOMMENDATION: Annual Screening Mammogram ASSESSMENT: BI-RADS: 1: Negative. Britney Ramirez APRN, C.N.P., D.N.P. IM G BI PROCEDURES Final Result * Glucose, Fasting (12/15/2022 9:25 AM STILL CLEANER) Glucose, P 96 70 - 100 mg/dL 12/15/2022 11:52 AM STILL CLEANER OWAT Last Intake 16 hr 12/15/2022 11:05 AM STILL CLEANER [facility] Blood (Blood, Venous) 12/15/2022 9:25 AM STILL CLEANER 12/15/2022 11:05 AM STILL CLEANER us Janice SKINNER, P.A.-C. LAB BLOOD NON ADD -ON Final Result [facility] [address] [place] [address], [place] [facility] [place] [address] [place] [address] from Last 3 Months or Most Recently Relevant to Health [place] [id number] Care Teams Traffic Incident Management Manager Relationship Specialty Start Date End Date Jv-Britney Bass APRN, C.N.P., D.N.P. [address], [place] [phone] PCP - General 04/10/23
--- OUTSIDE RECORDS SUMMARY | 2024-08-22 08:00 | XMS_ITS | Encounter Summary ---
Author Organization [facility] Address [address] [place] [address] Care Team Providers Care Marker Maker Name Role Phone Britney Ramirez APRN, C.N.P., D.N.P. P [facility] Care Provider Reason for Referral * Outpatient (Routine) - Authorized Specialty Diagnoses / Procedures Referred By Contnuris t Referred To Contact Family Medicine Diagnoses Hypercholesterolemia Britney Ramirez APRN, C.N.P., D.N.P. [address] [place] [address] Phone: tel: fax: [facility] Referral ID Status Reason Start Date Expiration Date V isits Requested Visits Authorized [id number] Authorized 07/30/2024 01/29/2026 1 1 Scheduling Instructions Service prompted by Rx/Med algorithm Reason for Visit * Reason Comments Med Refill Encounter Details Date Type Department Care Team (Late st Contact Info) Description 07/27/2024 Refill Department of Community Internal Medicine in [place], [place] [address] [place] [address] Jarrell Coronel P.AAnnabel. [address] [place] [address] Med Refill Social History Tobacco Use Types Packs/Day Years Used Date Smoking Tobacco: Never Smokeless Tobacco: Never Alcohol Use Standard Drinks/Week Comments Not Currently 0 (1 standard drink = 0.6 oz pur e alcohol) [facility] Utilities Answer Date Recorded In the past 12 months has th e electric, gas, oil, or water company threatened to shut off services in your [...] How often do you attend restorationism or worship serv ices? Patient declined 10/28/2022 Do you [...] Answer Date Recorded PHQ-2 Score 0 11/07/2022 [facility] - Occupational Stress [...] your living situation today? I have a [place] place to live 04/16/2024 Education Answer Date Recorded What is the highest level of school you have completed or the highest degree you have received? Associate degree: occupational, technical, or vocational program 02/02/2021 Comments No Sex and Gender Information Value Date Recorded Sex Assigned at Female 12/15/2022 12:54 PM SEWAGE DISPOSAL WORKER Legal Sex Female 11:38 PM SEWAGE DISPOSAL WORKER Gender Identity Female 09/19/2017 11:16 AM SEWAGE DISPOSAL WORKER Sexual Orientation Straight 09/19/2017 11 :16 AM SEWAGE DISPOSAL WORKER documented as of this encounter Miscellaneous Notes * Telephone Encounter - Yuliana Castañeda - 07/29/2024 1:00 PM CDT Per Rx Algorithm Office Visit have been Pended. documented in this encounter Plan of Treatment Upcoming Encounters Date Type Department Care Team (Late st Contact Info) Description 08/28/2024 3:00 PM SEWAGE DISPOSAL WORKER Nurse Only Department of Dermatology in [place], [place] [address] [place] [phone] Brittany Cazares M.D. [address] [place] [phone] Scheduled Referrals Name Type Priority Associated Diagnoses Orde r Schedule Family Medicine office visit (clinic) Outpatient Referral Routine Hypercholesterolemia Expected: 07/30/2024, Expires: 10/29/2025 documented as of this encounter Visit Diagnoses Diagnosis Hypercholesterolemia- Primary documented in this encounter Additional Health Concerns Assessment Noted Time PHQ-9 Depression Total Score: 0 09/19/20 17 8:32 AM SEWAGE DISPOSAL WORKER documented as of this encounter Care Teams Marker Maker Relationship Specialty Start Date End Date Jv-Britney Bass APRN, C.N.P., D.N.P. [address] [phone] PCP - General 04/10/23 documented as of this encounter
--- OUTSIDE RECORDS SUMMARY | 2024-08-22 08:00 | XMS_ITS | Encounter Summary ---
Author Organization [facility] Address [address] [place] [address] Care Team Providers Care Balance Wheel Screw Hole Tapper Name Role Phone Britney Ramirez APRN C.N.PKarol, D.N.P. P [place] [place] Care Provider Reason for Referral * Outpatient (Routine) - Closed Specialty Diagnoses / Procedures Referred By Iona t Referred To Contact Dermatology Brittany Cazares M.D. 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 [address] [place] [phone] Phone: tel: fax: [facility] Region Referral ID Status Reason Start Date Expiration Date Visits Re quested Visits Authorized [id number] Closed 08/09/2024 08/09/2025 1 1 Encounter Details Date Type Department Care Team (Latest Contact Info) Description 08/13/2024 11:30 AM CDT Procedure visit Department of Dermatology in [place], [place] [address] [place] [phone] Brittany Cazares M.D. 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 Patient declined 10/28/2022 Do you belong to any clubs o r organizations such as orthodoxy groups, unions, fraternal or [...] Answer Date Recorded PHQ-2 Score 0 11/07/2022 [facility] - Occupational [...] Answer Date Recorded Dental: Regular Dentist Yes 12/28/20 22 Employment Answer Date Recorded Employment status Retired 04/16/2024 Housing Stability Answer Date Recorded What is your living situation today? I have a [facility] place to live 04/16/2024 Education Answer Date Recorded What is the highest level of school you have completed or the highest degree you have received? Associate degree: occupational, technical, or vocational program 02/02/2021 Comments No Sex and Gender Information Value Date Recorded Sex Assigned at Female 12/15/2022 12:54 PM HOT BILLET SHEAR OPERATOR Legal Sex Female 11:38 PM HOT BILLET SHEAR OPERATOR Gender Identity Female 09/19/2017 11:16 AM HOT BILLET SHEAR OPERATOR Sexual Orientation Straight 09/19/2017 11 :16 AM HOT BILLET SHEAR OPERATOR documented as of this encounter Last Filed [...] - documented in this encounter Patient Instructions * Patient Instructions* Ioana Rivas R.N. - 08/13/2024 11:30 AM CDT You are going home with an Unna boot in place. An Unna boot is a dressing and wrap combination that is applied from your foot to your knee. An Unna boot has a special medicine in the gauze that will help heal your surgical incision. Home care: Don???t get your Unna boot wet. Take a sponge bath to avoid getting your Unna boot wet Keep the rest of your skin clean. Avoid standing or sitting in the same position for more than 30 minutes at a time. Keep your legs elevated as much as possible. When to call your healthcare provider Tingling or numbness in the injured body part Severe pain that cannot be relieved A fever of 100.4??F (38??C) or higher, or as advised Swelling, coldness, or blue-welch color in the fingers or toes Unna boot that feels too tight or too loose Unna boot that is damaged or has rough edges that hurt Unna boot that gets wet Drainage from Unna boot dressing that smells different than usual Bleeding after surgery You may see small amount of blood on your dressing. This is normal. However, if bleeding continues and the dressing becomes wet with blood use a clean gauze or washcloth to apply continuous pressure to the site for a full 15 minutes without peeking. The bleeding should stop. If bleeding does not stop, repeat above step for an additional 15 minutes. If it still does not stop call the Dermatology cl in for further instructions. If it is after hours you may need to seek urgent medical care to stop the bleeding. Pain after surgery Surgical site discomfort is usually mild. If needed, take Acetaminophen (Tylenol) 500 mg, 1 or 2 tablets, every 4 to 6 hours while you are awake. Do not take more than 3,000 mg of Acetaminophen in a 24 hour period. You may alternate with Ibuprofen 200 mg, 1 or 2 tablets (brand names include Motrin or Advil) for better pain control or if you do not tolerate Acetaminophen. If this does not control your pain, please call the Dermatology clinic. Restrictions after surgery - Do not lift anything that weighs 10 pounds or more for 7-10 days - If you have a head wound, do not bend from the waist. Please squat down instead. - Avoid alcohol for 48 hours after surgery. - Avoid exercise for 1 week after surgery. - Avoid baths/swimming pools/hot tubs for 2 weeks. - Avoid Neosporin. - Avoid Direct sunlight to the wound. Additional Information You may have some bruising after the procedure, including a black eye(s) or swollen eye if surgery was on the face. This is normal and will fade over the next two weeks. Ice can be helpful to reduce the swelling and discomfort. Continue with your daily aspirin and all other blood thinners as prescribed by your provider. You may need to change your sleeping position or prop yourself up with pillows if surgery is on an area that you sleep on. This may damage your sutures or bandages, which can lead to delayed wound healing. Call the Dermatology Clinic if: 1. The area becomes increasingly RED, WARM, SWOLLEN, TENDER, or YELLOW (NOT CLEAR) DRAINAGE. 2. If you have fever or chills 3. The sutures come out or the incision opens. The Dermatology Nurses can be reached at ([phone]) Monday-Monday between 8:00am - 4:00pm. Leave a message if no one answers. We will return your call as soon as we are able. If you need assistance after clinic hours or on weekends for possible infection- Please call the [facility] Investigative Analyst: [phone] and to be connected with Dr. Wilma Cazares if you have any: increasing pain not managed with pbtz-wxz-sdorafc pain medication, soaking through bandages, and any new swelling. If you should need to remove unna boot, please start vinegar soaks twice daily, apply Vaseline and a clean bandage. Vinegar Rinses Combine three cups ???cool?? water and one cup distilled white vinegar (for smaller amounts use 1 tablespoon of white vinegar and mix it with 3 tablespoons of water Soak gauze, cotton cloth (cotton T-shirt) a paper towel or washcloth in the solution, ring out excess liquid and then apply to the area. Soak for 15 minutes twice a day. After 15 minutes allow area to dry, and then apply topical prescription medication/s as directed byyour provider Repeat this process twice a day Distilled white vinegar works as a natural astringent, antifungal, and antibacterial Questions related to this information- Contact your Provider directly via Patient Online Services or call the Dermatology Nurse Line at [phone]. 5-Fluorouracil/Calcipotriene Cream You have been prescribed a topical medication called 5- Fluorouracil/Calcipotriene cream to treat Actinic Keratosis (precancers). This combination topical cream is not typically covered by insurance and can be quite expensive if both medications are prescribed separately. [facility]: Your prescription: Your physician will send your prescription to the pharmacy through [email or web address] Your verification: You will receive an email from [email or web address] where you will follow the instructions withinthe email to provide your billing and shipping information. Your medication will be shipped directly to you! If you have any questions you can email [facility] at [email or web address] or you can call them at . How to Apply 5-Fluorouracil/Calcipotriene cream You will apply a thin layer of this cream: Apply twice daily to lower legs for 14 days Important things to remember Apply the cream in the morning and then again in the early evening at least 2 hours before bedtime. Apply this cream before you apply any other creams, such as moisturizer, sunscreen or make-up (these may irritate your skin). What to expect when using cream You can expect redness and irritation starting within a few days after you start your treatment andup to 2-3 weeks after treatment is completed. Areas being treated may be crusted, itchy or painful. There will be a burning/tight sensation, redness and possible sores on the treatment areas. Your skin may peel, blister, and become discolored (red or brown- this is temporary). 4. Treated areas may also become swollen. The reactions listed above are all NORMAL and EXPECTED. Application instructions Wash the skin using a gentle cleanser prior to each application of the cream. If you are treating your face- On days 1-3 of your treatment: after cleansing your face, moisten a cotton ball with rubbing alcohol and wipe entire face - avoiding eyes - to remove excess oils from your skin If you are treating your scalp, arms or hands- On days 1-5 of your treatment after cleansing your scalp, moisten a cotton ball with acetone (nail armenian remover) - avoiding eyes - to remove excess oils from your skin. 2. Apply a thin layer of cream to the area - avoiding eyes, eyelids, mouth & nostrils. 3. Wash your hands thoroughly immediately after using the cream. Precautions This mediation will cause you to be very sensitive to the sun. It is important to protect yourself from the sun and wear sunscreen, even during cold weather. Do not shave if you have open areas on your face while doing this treatment, this could cause infection. Tips Apply Vaseline every 2-3 hours once you become dry and crusty, and also use a dilute vinegar compress to soothe your skin (see recipe below). A vinegar compress is made by mixing 2 Tablespoons of white vinegar with 2 cups of water and dampening a soft towel in the solution and covering the affected area for up to 30 minutes If you use a CPAP for sleep at night you can cut strips of wax paper to place over your face to keep Vaseline in place overnight as well as to lessen the irritation that may occur from your CPAP mask. Storage: Store any remaining medication in the refrigerator for possible future use. This medication does not need to be discarded based on the beyond use date (BUD) If possible, please take photos on the worst day to review at your next appointment *When to call nursing:* If you are having fevers of 100.4 degrees of higher. If any of the open areas on your face are draining, bleeding, or have yellow, pus-like drainage. Please call [phone] with questions documented in this encounter Procedure Notes * Brittany Cazares M.D. 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 Date of Surgery: 08/13/2024 Surgeon: Dr. Wilma Cazares M.D. Location: [facility] Visit Type: Outpatient PostOp Diagnosis: same Anatomic Location: left masters Preoperative size: 1.4 x 1.5 cm [facility] number: [id number] Indication(s) for Mohs Micrographic Surgery: [...] the healthcare team participating in the procedure. All questions answered and consent given. PATIENT EDUCATION Ready to learn, no apparent learning barriers were identified; learning preferences include listening. Explained diagnosis and treatment plan; patient expressed understanding of the content. Preoperative medications: - Acetaminophen 500-mg by mouth once The anesthesia used was 1% lidocaine with 1:100,000 epinephrine. The skin was prepped in a sterile fashion with Hibiclens. Histologic tumor-free margins were obtained in 2 stages (1, 1 blocks) by standard Mohs micrographictechniques with the Mohs surgeon performing both the surgery and pathology. The final defect depth was down to level of: dermis. Postoperative size: 1.8x 2.0 cm. After discussing the options for wound management, it was decided to allow the wound to heal by second intention and assess the cosmetic and functional outcome at a later date. Estimated blood loss: Minimal. Complications: None. Wound care: Routine. Postoperative medications: doxycycline 100-mg BID x 14 days - Additionally advised field therapy to the left masters using 7-qwdttsovurxf-gwuvlsislerfs twice daily for 14-21 days once the skin of the masters has completely healed from today's procedure. --- Wilma Cazares M.D. documented in this encounter Plan of Treatment Upcoming Encounters Date Type Department Care Team (Late st Contact Info) Description 08/28/2024 3:00 PM HOT BILLET SHEAR OPERATOR Nurse Only Department of Dermatology in [place], [place] [address] [place] [address] Brittany Cazares M.D. 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 - 08/13/2024 11:30 AM CDT Brittany Cazares M.D. ? 08/14/2024 ??1:03 PM PREOP INDICATION: REMOVAL. Date of Surgery: 08/13/2024 Surgeon: Dr. Wilma Cazares M.D. Location: [facility] Visit Type: Outpatient PostOp Diagnosis: same Anatomic Location: left masters Preoperative size: 1.4 x 1.5 cm [facility] number: [id number] Indication(s) for Mohs Micrographic Surgery: [...] field therapy to the left masters using 4-qzbbzimnbafi-wloiflhraookv twice daily for 14-21 days once the skin of the masters has completely healed from today's procedure. --- Wilma Cazares M.D. Delaney Rivera M.D. 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 [address] [place] [address] PCP - General 04/10/23 documented as of this encounter
--- OUTSIDE RECORDS SUMMARY | 2024-08-22 08:00 | XMS_ITS | Clinical Summary ---
Author Organization [facility] Address [place], [place] [address] Care Team Providers Care Probate Paralegal Name Role Phone Ember Hebert CUSTOMER CARE VOICE CONSULTANT Unavailable Allyson Resendiz CUSTOMER CARE VOICE CONSULTANT Unavailable [phone] Janice Ambrosio PA-C Primary Care Provider [phone] Allergies Active Allergy Reactions Criticality Noted Date Comments Adhesive Rash 01/21/2021 Skin itchy, bumpy and skin reddened in area covered by bandaid Titanium Other - Describe In Comment Field 02/21/2018 Medications Medication Sig Dispensed Refills Start Date End Date Status VERAPAMIL HCL (VERAPAMIL ORAL) Take 180 mg by mouth once daily. Uses as needed for Raynaud's Active MULTIVITAMIN ORAL Take 1 tablet by mouth once daily. Active CALCIUM CARBONATE/VITAMIN D3 (CALCIUM + D ORAL) Take 1 tablet by mouth once daily. Active vitamin B complex (B COMPLEX 1) tablet Take 1 tablet by mouth once daily. Active FSH/FLX/PRIM/CUR/BOR/O M3,6,9 5 (OMEGA 3-6-9 FATTY ACIDS ORAL) Take 1 capsule by mouth. Active atorvastatin (LIPITOR) 10 mg tablet Take 5 mg by mouth once daily. 11/07/2022 Active Active Problems Problem Noted Date Diagnosed Date Other acne Raynaud's syndrome Family History Medical History Relation Name Comments Cancer-breast Neg. Relation Name Status Comments Neg. Social History Tobacco Use Types Packs/Day Years Used Date Smoking Tobacco: Never Smokeless Tobacco: Never Alcohol Use Standard Drinks/Week Comments No 0 (1 standard drink = 0.6 oz pur e alcohol) rarely Sex and Gender Information Value Date Recorded Sex Assigned at Not on file Gender Identity Not on file Sexual Orientation Not on file Obstetrics History Last Filed Vital Signs Vital Sign Reading Time Taken Comments Blood Pressure 106/54 01/05/2023 3:55 PM CDT Pulse 69 01/05/2023 3:55 PM CDT Temperature 36.3 ??C (97.4 ??F) 01/05/2023 11:55 AM C DT Respiratory Rate 16 01/05/2023 3:55 PM CDT Oxygen Saturation 100% 01/05/2023 3:55 PM CDT Inhaled Oxygen Concentration - - Weight 70.9 kg (156 lb 6.4 oz) 01/05/2023 11:55 AM CDT Height 176.2 cm (5' 9.37) 01/05/2023 11:55 AM C DT Body Mass Index 22.85 01/05/2023 11:55 AM CDT Plan of Treatment Health Maintenance Due Date Last Done Comments Tdap 1973 Depression screening for age 12+ 1974 HIV for age 15-65 1977 Hepatitis C screening for ag e 18-79 02/29/1980 Tetanus booster 1982 Pap test for age 21-65 1983 Lipids for age 45-75 2007 Mammogram for age 45-75 03/06/2010 03/06/20 09, 02/20/2008 Zoster (shingles) series for age 50+ (1 of 2) 02/29/2012 BMI (ht and wt on same day) for age 18+ 03/22/2020 03/22/2019 COVID-19 vaccine series (2023- season) 2024 10/22/2021 Influenza for age 50-64 06/16/2024 Colonoscopy through age 75 01/05/203301/05, 09/25/2017 Pneumococcal series for age 6-64 Aged Out No longer eligible b ased on patient's age to complete this topic Procedures Procedure Name Priority Date/Time Associated Diagnosis Comments COLONOSCOPY 01/05/2023 2:24 PM CDT SCAN-MAMMOGRAPHY REPORT 03/06/2009 12:00 AM CDT from Last 3 Months or Most Recently Relevant to Health Maintenance Results * COLONOSCOPY (01/05/2023 2:24 PM CDT) 01/05/2023 2:24 PM CDT Narrative Transcriptions Ariella Hudson MD - 01/05/2023 3:28 PM CDT Patient Name: Amanda Osorio Procedure Date: 01/05/2023 Gender: Female Date of : 1960 Admit Type: Ambulatory Procedure: Colonoscopy Proceduralist: Ariella Hernández MD Referring MD: Ariella Hernández MD Indications/Pre-Op Diagnosis: Colon cancer screening in patient atincreased risk: Family history of colon polyps in multiple 1st-degree relatives, Last colonoscopy: September 2017 Medications: Monitored Anesthesia Care Procedure Description: The procedure, indications, potential complications, (bleeding, perforation, infection, adverse medication reaction, missed lesionsor polyps) and alternatives available were explained to the patient, who appeared to understand and indicated this. Opportunity for questionswas provided and informed consent obtained. The endoscope [id number]-[id number] was passed through the anus andadvanced to the cecum, identified by appendiceal orifice and ileocecal valve.The colonoscopy was performed without difficulty. The patient toleratedthe procedure well. The quality of the bowel preparation was evaluatedusing the BBPS (Lynn Bowel Preparation Scale) with scores of: Right Colon= 3, Transverse Colon = 3 and Left Colon = 3 (entire mucosa seen wellwith no residual staining, small fragments of stool or opaque liquid). The total BBPS score equals 9. Complications: No immediate complications. Estimated Blood Loss & Specimen: Estimated blood loss was minimal. Specimen collected: Yes and sent to Laboratory Findings: The perianal and digital rectal examinations were normal. . A 10 mm polyp was found in the cecum. The polyp was sessile. Thepolyp was removed with a piecemeal technique using a cold snare. Resectionand retrieval were complete. A 5 mm polyp was found in the rectum. The polyp was sessile. Thepolyp was removed with a cold snare. Resection and retrieval werecomplete. The exam was otherwise without abnormality on direct and retroflexion views. Impressions/Post-Op Diagnosis: - One 10 mm polyp in the cecum, removed piecemeal using a cold snare. Resected and retrieved. - One 5 mm polyp in the rectum, removed with a cold snare. Resectedand retrieved. - The examination was otherwise normal on direct and retroflexionviews. Recommendation: - Dr. Hernández's office will call you with results and follow up instructions Moderate Sedation: see anesthesia report Ariella Hernández MD 01/05/2023 3:28:06 PM This report has been signed electronically. Note Initiated On: 01/05/2023 2:24 PM Ariella Vila MD PROCEDURE O RD * SCAN-MAMMOGRAPHY REPORT (03/06/2009 12:00 AM CDT) Anatomical Region Laterality Modality Other Narrative Procedure Note Scanner - 03/06/2009 12:00 AM CDT Scanner OTHER from Last 3 Months or Most Recently Relevant to Health Maintenance Advance Directives * Full Code (Latest Code Status on File) Date Activated Date Inactivated Comments 01/05/2023 8:05 AM 01/05/2023 6:14 PM Question Answer Comments Code Status Discussion: Not Discussed * Full Code Date Activated Date Inactivated Comments 09/25/2017 10:29 AM 09/25/2017 4:37 PM * Full Code Date Activated Date Inactivated Comments 07/28/2014 6:00 PM 07/30/2014 2:04 PM Care Teams Probate Paralegal Relationship Specialty Start Date End Date Janice Ambrosio PA-C [facility] [address] [phone] PCP - General Physician Critical Power Technician 11/16/22 Ember Hebert CUSTOMER CARE VOICE CONSULTANT [address] [place] [phone] 06/21/11 Allyson Resendiz NP [address] [place] [address] [phone] Nurse Practitioner 12/16/13
--- OUTSIDE RECORDS SUMMARY | 2024-08-22 08:00 | XMS_ITS | Encounter Summary ---
Author Organization [facility] Address [address] [place] [address] Care Team Providers Care Hunter Skin Diver Name Role Phone Britney Ramirez APRN, C.N.P., D.N.P. 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 [address] [place] [phone] Phone: tel: fax: [facility] Region Referral ID Status Reason Start Date Expiration Date Visits Re quested Visits Authorized [id number] Closed 08/09/2024 08/09/2025 1 1 Encounter Details Date Type Department Care Team (Late st Contact Info) Description 08/08/2024 Clinical Communication Department of Dermatology in [address] [phone] Delaney Rivera M.D. [address] [place] [phone] Social History Tobacco Use Types Packs/Day Years Used Date Smoking Tobacco: Never Smokeless Tobacco: Never Alcohol Use Standard Drinks/Week Comments Not Currently 0 (1 standard drink = 0.6 oz pur e alcohol) [facility] Utilities Answer Date Recorded In the past [...] declined 10/28/2022 How often do you attend hindu or orthodox serv ices? Patient declined 10/28/2022 Do you belong to any clubs o r organizations such as hindu groups, unions, fraternal or [...] Answer Date Recorded PHQ-2 Score 0 11/07/2022 [facility] Occupat ional [facility] - Occupational Stress Questionnaire Answer Date Recorded [...] your living situation today? I have a [facility] place to live 04/16/2024 Education Answer Date Recorded What is the highest level of school you have completed or the highest degree you have received? Associate degree: occupational, technical, or vocational program 02/02/2021 Comments No Sex and Gender Information Value Date Recorded Sex Assigned at Female 12/15/2022 12:54 PM LOAD MIXER Legal Sex Female 11:38 PM LOAD MIXER Gender Identity Female 09/19/2017 11:16 AM LOAD MIXER Sexual Orientation Straight 09/19/2017 11 :16 AM LOAD MIXER documented as of this encounter Miscellaneous Notes * Telephone Encounter - Estelle Torres R.N. - 08/09/2024 11:04 AM CDT I spoke to Amanda Osorio regarding her biopsy results and to discuss the need for Mohs Surgery. Procedure explained to the patient along with what to expect on the day of surgery. All medications and allergies reviewed and updated in EMR PreOp checklist reviewed with patient and pertinent information listed below - NA On the morning of surgery patient reminded to eat breakfast, take her normal doses of prescription medications and arrange to have a substitute bus driver. Mohs pamphlet and additional information regarding what to expect sent to patient in the mail alongwith information regarding how to consult with insurance regarding coverage and the need for a prior authorization. All questions answered to patient's satisfaction. * Telephone Encounter - Estelle Torres R.N. - 08/08/2024 3:39 PM CDT Voicemail left for patient to call dermatology regarding biopsy results and provider recommendations. Chart prepped History updated * Telephone Encounter - Estelle Torres R.N. - 08/08/2024 3:39 PM CDT ----- Message from Delaney Rivera M.D. sent at 08/08/2024 3:29 PM CDT ----- Please call patient with results. Lesion on left masters = SCC. Please schedule MMS and add new diagnosis to medical history. Recheck in December as scheduled with me for FSE. documented in this encounter Plan of Treatment Upcoming Encounters Date Type Department Care Team (Late st Contact Info) Description 08/28/2024 3:00 PM LOAD MIXER Nurse Only Department of Dermatology in [place], [place] [address] [place] [address] Brittany Cazares M.D. [address] [place] [address] documented as of this encounter Results * LEELEE MOHS single site (08/13/2024 11:30 AM CDT) Narrative Brittany Cazares M.D. - 08/13/2024 11:30 AM CDT Brittany Cazares M.D. ? 08/14/2024 ??1:03 PM PREOP INDICATION: REMOVAL. Date of Surgery: 08/13/2024 Surgeon: Dr. Wilma Cazares M.D. Location: [facility] Visit Type: Outpatient PostOp Diagnosis: same Anatomic Location: left masters Preoperative size: 1.4 x 1.5 cm [facility] number: [phone] Indication(s) for Mohs Micrographic Surgery: [...] field therapy to the left masters using 0-hayufwiskbeo-nwmkdzggtslmd twice daily for 14-21 days once the skin of the masters has completely healed from today's procedure. --- Wilma Cazares M.D. Delaney Rivera M.D. 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 [address] [place] [phone] PCP - General 04/10/23 documented as of this encounter
--- OUTSIDE RECORDS SUMMARY | 2024-08-22 08:00 | XMS_ITS | Encounter Summary ---
Author Organization [facility] Address [address] [place] [address] Care Team Providers Care Feedmobile Driver Name Role Phone Britney Ramirez APRN, C.N.P., D.N.P. P [facility] Care Provider Encounter Details Date Type Department Care Team (Late st Contact Info) Description 08/06/2024 11:15 AM CDT Ancillary Procedure Department of Dermatology Social History Tobacco Use Types Packs/Day Years Used Date Smoking Tobacco: Never Smokeless Tobacco: Never Alcohol Use Standard Drinks/Week Comments Not Currently 0 (1 standard drink = 0.6 oz pur e alcohol) [facility] Utilities Answer Date Recorded In the past 12 months has [employer], gas, oil, or water [employer] threatened to shut off services in your [...] declined 10/28/2022 How often do you attend yazdanism or roman catholic serv ices? Patient declined 10/28/2022 Do you belong to any clubs o r organizations such as yazdanism groups, unions, fraternal or athletic groups, or [...] Answer Date Recorded PHQ-2 Score 0 11/07/2022 [facility] of Occupat ional [facility] - Occupational Stress Questionnaire Answer Date Recorded [...] your living situation today? I have a [facility] place to live 04/16/2024 Education Answer Date Recorded What is the highest level of school you have completed or the highest degree you have received? Associate degree: occupational, technical, or vocational program 02/02/2021 Comments No Sex and Gender Information Value Date Recorded Sex Assigned at Female 12/15/2022 12:54 PM MEAT SOAKER Legal Sex Female 11:38 PM MEAT SOAKER Gender Identity Female 09/19/2017 11:16 AM MEAT SOAKER Sexual Orientation Straight 09/19/2017 11 :16 AM MEAT SOAKER documented as of this encounter Plan of Treatment Upcoming Encounters Date Type Department Care Team (Late st Contact Info) Description 08/28/2024 3:00 PM MEAT SOAKER Nurse Only Department of Dermatology in [place], [place] [address] [place] [address] Brittany Cazares M.D. [address] [place] [phone] documented as of this encounter Procedures Procedure Name Priority Date/Time Associated Diagnosis Comments DERMATOLOGY IMAGE EXAM Routine 08/06/2024 11:15 AM CDT documented in this encounter Results * Lower extremity left anterior masters 407-Dermatology Image Exam (08/06/2024 11:15 AM CDT) 08/06/2024 11:1 2 AM CDT Narrative [facility] - 08/06/2024 11:15 AM CDT This order has been created and auto-finalized to support the import of images acquired without order. The clinical documentation to support these images can be found on the encounter that produced images. us Provider Not In System IMG NON RAD IMAGING PROCE DAVID Final Result [facility] NA documented in this encounter Visit Diagnoses Not on filedocumented in this encounter Additional Health Concerns Assessment Noted Time PHQ-9 Depression Total Score: 0 09/19/20 17 8:32 AM MEAT SOAKER documented as of this encounter Care Teams Feedmobile Driver Relationship Specialty Start Date End Date Britney Ramirez APRN, C.N.P., D.N.P. [address], [place] [address] PCP - General 04/10/23 documented as of this encounter
--- OUTSIDE RECORDS SUMMARY | 2024-08-22 08:00 | XMS_ITS | Encounter Summary ---
Author Organization [facility] Address [address] [place] [address] Care Team Providers Care Hand Trimmer Name Role Phone Britney Ramirez APRN, C.N.P., D.N.P. P [facility] Care Provider Reason for Visit * Reason Comments Med Refill Encounter Details Date Type Department Care Team (Late st Contact Info) Description 07/30/2024 Refill Department of Community Internal Medicine in [address] [place] [facility] [place] [address] Britney Ramirez APRN, C.N.P., D.N.P. [address] [phone] Med Refill Social History Tobacco Use Types Packs/Day Years Used Date Smoking Tobacco: Never Smokeless Tobacco: Never Alcohol Use Standard Drinks/Week Comments Not Currently 0 (1 standard drink = 0.6 oz pur e alcohol) [facility] Utilities Answer Date Recorded In the past 12 months has e electric, gas, oil, or water [employer] threatened to shut off services in your [...] declined 10/28/2022 How often do you attend pentecostalism or voodoo serv ices? Patient declined 10/28/2022 Do you belong to any clubs o r organizations such as pentecostalism groups, unions, fraternal or [...] Answer Date Recorded PHQ-2 Score 0 11/07/2022 [facility] - Occupational Stress [...] your living situation today? I have a [facility] place to live 04/16/2024 Education Answer Date Recorded What is the highest level of school you have completed or the highest degree you have received? Associate degree: occupational, technical, or vocational program 02/02/2021 Comments No Sex and Gender Information Value Date Recorded Sex Assigned at Female 12/15/2022 12:54 PM LEASE PURCHASE TRUCK DRIVER Legal Sex Female 11:38 PM LEASE PURCHASE TRUCK DRIVER Gender Identity Female 09/19/2017 11:16 AM LEASE PURCHASE TRUCK DRIVER Sexual Orientation Straight 09/19/2017 11 :16 AM LEASE PURCHASE TRUCK DRIVER documented as of this encounter Miscellaneous Notes * Telephone Encounter - Kalli Cuellar - 07/31/2024 9:33 AM CDT Patient needs to be seen for further refills documented in this encounter Plan of Treatment Upcoming Encounters Date Type Department Care Team (Late st Contact Info) Description 08/28/2024 3:00 PM LEASE PURCHASE TRUCK DRIVER Nurse Only Department of Dermatology in [address] [phone] Brittany Cazares M.D. [address] [place] [address] documented as of this encounter Visit Diagnoses Diagnosis Hypercholesterolemia documented in this encounter Additional Health Concerns Assessment Noted Time PHQ-9 Depression Total Score: 0 09/19/20 17 8:32 AM LEASE PURCHASE TRUCK DRIVER documented as of this encounter Care Teams Hand Trimmer Relationship Specialty Start Date End Date Jv-Britney Bass APRN, C.N.P., D.N.P. [address] [place] [address] PCP - General 04/10/23 documented as of this encounter
--- OUTSIDE RECORDS SUMMARY | 2024-08-22 08:00 | XMS_ITS | Encounter Summary ---
Author Organization [facility] Address [address] [place] [address] Care Team Providers Care Graphics Manager Name Role Phone Britney Ramirez APRN, C.N.PKarol, D.N.P. [facility] Care Provider Reason for Visit * Reason Comments Skin Check FSE * Appointment Request (Routine) - Closed Specialty Diagnoses / Procedures Referred By Iona vee Referred To Contact Dermatology Referral ID Status Reason Start Date Expiration Date Visits Re quested Visits Authorized [id number] Closed 05/10/2024 05/10/2025 1 1 Encounter Details Date Type Department Care Team (Latest Contact Info) Description 08/06/2024 10:45 AM CDT Comprehensive Visit Department of Dermatology in [place], [place] [address] [place] [phone] Delaney Rivera M.D. [address] [place] [phone] Neoplasm Uncertain Behavior Skin (Primary Dx); Cancer Skin Squamous Cell Personal History; Keratosis Seborrheic; Lentigo; Angioma Gutierrez; Nevi Multiple; Dermatitis Seborrheic; Keratosis Seborrheic Inflamed Social History Tobacco Use Types Packs/Day Years Used Date Smoking Tobacco: Never Smokeless Tobacco: Never Alcohol Use Standard Drinks/Week Comments Not Currently 0 (1 standard drink = 0.6 oz pur e alcohol) [facility] Utilities Answer Date Recorded In the past 12 months has [employer] electric, gas, oil, or water company threatened [...] declined 10/28/2022 How often do you attend advent or evangelical serv ices? Patient declined 10/28/2022 Do you belong to any clubs o r organizations such as advent groups, unions, fraternal or [...] Answer Date Recorded PHQ-2 Score 0 11/07/2022 [facility] [place] of Occupat ional Health - Occupational Stress [...] your living situation today? I have a [facility] place to live 04/16/2024 Education Answer Date Recorded What is the highest level of school you have completed or the highest degree you have received? Associate degree: occupational, technical, or vocational program 02/02/2021 Comments No Sex and Gender Information Value Date Recorded Sex Assigned at Female 12/15/2022 12:54 PM HARDWARE INSTALLATION COORDINATOR Legal Sex Female 11:38 PM HARDWARE INSTALLATION COORDINATOR Gender Identity Female 09/19/2017 11:16 AM HARDWARE INSTALLATION COORDINATOR Sexual Orientation Straight 09/19/2017 11 :16 AM HARDWARE INSTALLATION COORDINATOR documented as of this encounter Patient Instructions * Patient Instructions* Tiara Garnett L.P.N. - 08/06/2024 10:45 AM CDT Images from the original note were not included. Daily Care of Your Shave Biopsy Site How to care for your wound Keep the area covered and dry for 12-24 hours. Remove the bandage after 12-24 hours. Once the bandage is removed, follow the steps below: Clean the area with gentle soap and water. Pat the area dry. It is ok to shower after 12-24 hours. Apply a layer of petroleum jelly (Vaseline) over the wound. Cover the wound with a clean bandage daily. -Follow these steps until the area has healed (your wound is closed) -It is normal for the wound to have a red rim around it, appear white to pale yellow in the center,slightly swollen and tender if touched. Getting your results after your biopsy You will be notified of your biopsy results within 14 days. Results may appear in your patient portal prior to being notified by dermatology staff, please know we are reviewing your results and will contact you with those results within 14 days. If you do not hear from us within 14 days, please call our department at [phone]. Signs of infection: Please call us if you have any of the following symptoms: Fever of 101*F or higher Significant increase in redness, pain and swelling at the treated area Any yellow/green pus at the treated area If after clinic hours, please seek urgent or emergency care evaluation. Care after Cryosurgery Today you had a procedure called cryosurgery. During the procedure, your skin lesions were frozen with liquid nitrogen. The below instructions will help you to recover from your procedure. Caring for your wounds Cleanse the area daily with gentle soap and water. Pat the area dry. It is ok to shower. Apply petroleum jelly (Vaseline) to the treated areas once daily You do not have to put a bandage over the wound. However, you can use a bandage if: The area is oozing You want to protect your clothing You are bothered by the way the wound looks If the area feels irritated from clothing What to expect Your wounds will become red and swollen within a few hours. Then they may blister and swell a bit more in the next 2-3 days. This is expected. After your wounds blister, a dark crust might develop over them. It will fall off in 2-4 weeks. Also expect some oozing and drainage for about 2 weeks. Wounds on your face take about 2 weeks to heal. Wounds on other parts of your body take about 3-4 weeks to slowly heal. When to call Call us at [phone] if you have any of the following symptoms: Fever of 101*F or higher Significant increase in redness and swelling at the treated area Any pus at the treated area Sun Protection When UV rays come into contact with skin, they damage the cells, causing freckles, wrinkles, sunburn and skin cancer. UVA rays penetrate the skin deeply and are responsible for premature wrinkling/aging, while UVB rays are primarily responsible for sunburn and skin cancer. Sunburns received during childhood greatly increase the risk of developing melanoma, the most serious and potentially deadly form of skin cancer. How to protect your skin: Cover up: Wear protective clothing, hats and sunglasses. Wide brimmed hats which cover your ears and neck are best. Choose light colors which do not absorb heat as much as dark clothing, and choose loose-fitting clothing made from tightly woven fabric. Look for wide-brimmed hats and photoprotectiveclothing with UPF 50 on the label. Coolibar and UV Skinz are good brands. Use sunscreen: Get in the habit! Just as you comb your hair and brush your teeth every morning, youshould apply sunscreen as part of your routine. We recommend applying a layer of sunscreen to all exposed areas EVERY morning, even in the wintertime and on cloudy days. If I can see you with the lights turned off, you are being exposed to sun. Look for an SPF of 30 or higher. If working outdoors, boating, golfing etc. with extended sun exposure, SPF 50+ is helpful. Reapply frequently, every 2 hours, even more frequently if sweating or swimming. What you should look for in a sunscreen: Mineral SPF is the way to go! There are a ton of sunscreens out there but the best ones usually will say MINERAL SPF on the bottle, if you are not sure you should look at the ingredients list for zinc oxide and titanium dioxide and for SPF 30 or higher. Avoid oxybenzone which can cause rashes and is also not good for the environment. Lip Balms: Palmers Aaliyah Butter Lip [place]ar SPF 15 All Good Lip [place] SPF 15 (Zinc Oxide only 3.5%) TIZO Lip Protection SPF 45 Here are some options we sell in office that you can purchase TODAY! ? TIQUINCY Facial Primer Tinted and Non-tinted SPF 40 ? Bailey LUNA UV Clear tinted and non tinted SPF 46 ? TIQUINCY AM Replenish Lightly Tinted SPF 40 - Bailey LUNA UV Elements Broad-Spectrum SPF 44 -Revision Intellishade TruPhysical SPF 45 ? Isnatalia [place] Ageless - Tinted- SPF 50 -ZO Sunscreen+Powder Broad-Spectrum SPF 45 ? Isnatalia Peñafoiris Actinica Non Tinted- SPF 50 - Alumier Sheer Hydration Tinted or Untinted SPF 40 - Skin Ceuticals Physical Fusion UV Defense SPF50 More sunscreen options that can be found over the counter or online- -Vanicream SPF 50 -Aveeno Ultra-calming mineral sunscreen -CeraVe AM (Facial Lotion w/ SPF 30) -Bare Republic mineral sunscreen lotion SPF 30 ? CeraVe Hydrating SPF 30 or 50 -Derm Store daily mineral sunscreen -Rae Posay- Toleraine Double Repair SPF 30 -Cotz Tinted - SPF 50 ? Rae Posay- Anthelios SPF 60 ? ZO Skin Health Sunscreen Powder ? Eucerin Sensitive Mineral- SPF 50 -Neutrogena Mineral Ultra Sheer- SPF 30 Seek shade: Avoid the sun when directly overhead, especially between 10:00am and 3:00pm. Ban the loivas: There is no such thing as a safe olivas! Do not use tanning beds which give off intense UV rays and damage your skin, leading to skin aging and skin cancer. If you desire the look of a olivas,use bronzers, self tanning lotion or spray tans. Watch out: If you notice any freckles, moles or other skin spots that changes or stand out, call your doctor for an evaluation. SEBORRHEIC DERMATITIS Seborrheic dermatitis is a common skin disease that causes a red, scaly, itchy rash. Most often it occurs on the scalp, sides of the nose, eyebrows, ears, eyelids, and middle of the chest. This skin problem is easily treated, but are often chronic and recur. Sometimes people use the terms dandruff, seborrhea, and seborrheic dermatitis to mean the same thing. Dandruff causes scaling on the scalp but not redness. With seborrhea, the skin is oily, mainly onthe scalp and face, but has no redness or scaling. People with seborrhea may later get seborrheic dermatitis, which causes both redness and scaling. WHO GETS SEBORRHEIC DERMATITIS Seborrheic dermatitis affects people of all ages. It occurs most often in infants and older adults. In most infants, the condition appears on the scalp (cradle cap). This most often clears without treatment between 8 and 12 months of age. It is not contagious. In some infants, seborrheic dermatitis occurs just in the diaper area. People may confuse it with other forms of diaper rash. When seborrheic dermatitis appears after infancy, it tends to come and go and can be life-long. In teens and adults, it often first occurs as scalp scaling (dandruff). Elderly adults are prone to getting seborrheic dermatitis. This is mainly because of the effects of aging on the skin and infrequent shampooing. CAUSES Doctors think that the presence of a yeast-like organism and an excess release of oil from the skincontribute to seborrheic dermatitis. How sensitive a person's immune system is also plays a part. The excess oil from the skin makes a food source for the yeast to grow. Then the yeast causes inflammation (redness and swelling), irritation, scaling, and flaking. TREATMENT There is no way to prevent or cure seborrheic dermatitis. However, treatment with non-prescription products and/or prescription medicines can control it. Seborrheic dermatitis may get better on its own. With daily treatment, the condition often improves quickly. For infants, gentle shampooing with a mild shampoo helps infants with cradle cap. The parent also may apply a cream or lotion containing a low-dose corticosteroid or an anti-fungal medicine to the child's affected skin. Adults often need to use a medicated shampoos and/or a stronger corticosteroid cream. Daily shampooing often helps, and rotating dandruff shampoos can keep the yeast organism guessing. Even with the use of corticosteroids and medicated shampoos, seborrheic dermatitis will often recur. Dandruff shampoos are made from the following ingredients: Pyrithione zinc (2% is the highest concentration and the one we recommend) Salicylic Acid with or without sulfur (2-3% salicylic acid is best) (Neutrogena T Jose) Ketoconazole 1% (over the counter) or 2% (prescription strength) Selenium Sulfide Tar (Neutrogena T gel) Look for different, active ingredients, and either rotate them or alternate them by using a different ingredient each time you wash your hair. Treatments to Remove Thick Scale Warm Oil Scalp Treatment Mineral oil or coconut oil can be warmed gently in the microwave. Of course, be careful not to heatit to the point that it mcneal your skin! Apply the warmed oil to the scalp skin for about 30 minutes under a towel Comb the scalp to help loosen the scale Then, shampoo your scalp to remove the oil Use your medicated shampoo as your last lather Allow it to sit on your scalp for a few minutes, and then rinse You can use conditioner or your normal styling products after using a medicated shampoo. Your provider may also provided a prescription oil called [place]-Smoothe. This contains a mild steroid for anti-inflammatory properties and is meant to be left on over night. Massage into your scalp, cover with shower cap, and shampoo off in the morning. P&S Liquid Scalp Treatment P&S Liquid is a product with medicine that loosens scale. Apply the liquid to the stubborn, scaly areas of your scalp and cover with a shower cap for 8 hours. Then, shampoo your scalp as described above. Repeat these methods until the dryness and flaking is controlled. You can also apply one of the next leave-on treatments after shampooing for maximal therapy: Foote Formula 1% Pyrithione Zinc bar soap is recommended. It is available on Kaminario. Use on affected areas in the shower daily 5-Fluorouracil/Calcipotriene Cream You have been prescribed a topical medication called 5- Fluorouracil/Calcipotriene cream to treat Actinic Keratosis (precancers). This combination topical cream is not typically covered by insurance and can be quite expensive if both medications are prescribed separately. [facility]: Your prescription: Your physician will send your prescription to the pharmacy through [email or web address] Your verification: You will receive an email from [email or web address] where you will follow the instructions withinthe email to provide your billing and shipping information. Your medication will be shipped directly to you! If you have any questions you can email [facility] at or you can call them at . How to Apply 5-Fluorouracil/Calcipotriene cream You will apply a thin layer of this cream: to face and legs Apply twice daily to face for 7 days Apply twice daily to shins for 14 days Important things to remember Apply the cream in the morning and then again in the early evening at least 2 hours before bedtime. Apply this cream before you apply any other creams, such as moisturizer, sunscreen or make-up (these may irritate your skin). You may also be prescribed a antiviral pill called valacyclovir, this has been sent to your local preferred pharmacy. You should start taking oral Valacyclovir on the same day you start treating yourface with the cream to prevent cold sores. You will take this oral medication 2 times per day for the full 21 days. Why have I been prescribed valacyclovir? The virus that causes cold sores is a herpesvirus that can be reactivated by stress. Over 90% of [place] adults have been exposed to this virus and so to prevent a cold sore outbreak (that can quickly get out of control while using the cream) we recommend taking the antiviral medication during thetreatment course. The antiviral is a very low risk, common medication with negligible side effects.If you prefer to forego this medication, that's fine as it is purely for prophylaxis however if youdevelop a cold sore during the course of treatment you should contact our clinic as soon as possible. What to expect when using cream You [...] moisten a cotton ball with acetone (nail st lucian remover) - avoiding eyes - to remove [...] or have yellow, pus-like drainage. Please call [phone] with questions documented in this encounter Progress Notes * Delaney Rivera M.D. - 08/06/2024 10:45 AM CDT Images from the original note were not included. 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 CHIEF COMPLAINT Skin Check (FSE), last FSE [facility] 05/2023 HISTORY OF PRESENT ILLNESS Amanda Osorio is a 64 y.o. female here for total body skin surveillance exam given hx of SCCs and atypical nevus. Concerns as below: 1. Lesion on left masters Present for 2-3 months, not healing 2. Lesion on left neck Present for 18 months 3. Left abdomen and left upper chest Inflamed as of last week, tender, catches on clothing 4. Right dorsal hand Noticed 2 weeks ago, not bothersome 5. Redness and scaling around nose, eyes and ears Has tried treating with Aquaphor DERM HISTORY Past Medical History: Diagnosis Date Acne Rosacea 09/30/2014 Infection Wound Postoperative Initial 01/14/2021 Infection and nonhealing surgical wound from removal of cancerous lesion anterior mid tibial shaft area right leg. Amanda had a cancerous lesion removed with 21 radiation treatments. She has been receiving wound care through [facility] in [place]. She has been a series of antibiotics sinceOctober and November. She is currently on cephalexin. She had wound culture done at the derma Keratosis Actinic 2007 5FU/kashif face and chest Malignant Neoplasm Of Skin Squamous Cell Carcinoma 07/2020 right proximal pretibial region medial, keratoacanthoma, [facility], treated with radiation Malignant Neoplasm Of Skin Squamous Cell Carcinoma 07/2020 right proximal pretibial area lateral,keratoacanthoma, [facility], treated with radiation Nevus Atypical 2010 left masters, moderate Raynaud's Disease 03/23/2010 History of tanning bed use? Yes, 50x History of organ transplant, immunosuppression, radiation, chemotherapy? No PMH: Reviewed and updated as appropriate. Meds: Reviewed and updated as appropriate. All: Reviewed and updated as appropriate. FAMILY HISTORY Melanoma in father and sister OBJECTIVE PHYSICAL EXAM GENERAL: In no acute distress. SKIN: FSE today inclusive of scalp, face, neck, left upper extremity, right upper extremity, chest,abdomen, back, buttocks, left lower extremity, right lower extremity, hair, nails. Dermoscopy utilized. No recurrence of tumors at sites of previous squamous cell carcinomas No recurrence of pigment at site of atypical nevus Dense photodistributed lentigines and evidence of photodamage, including increased rhytides, on sun-exposed areas of the skin Scattered sharp shouldered, light brown to dark brown stuck on papules and small plaques, c/w seborrheic keratoses under dermoscopy, including lesion of her concern on right dorsal hand and left neck Scattered sharp shouldered, light brown to dark brown stuck on papules and small plaques, c/w seborrheic keratoses under dermoscopy including pink, inflamed, and excoriated lesions of her concern on left abdomen and left lateral upper chest Scattered on trunk and extremities, there are many <5 mm gutierrez red papules Ill-defined erythematous patches with overlying greasy yellow scale involving the glabella, perinasal and postauricular creases Scattered brown macules and papules with even coloring and regular borders, and reassuring featuresunder dermoscopy Lesion A on left masters 6 mm pink crusted papule, lesion of her concern Clinical photographs: Photographs of affected areas obtained with verbal consent of patient by Dr. Rivera. It was explained the photos are HIPAA protected and are to be used for purposes of clinical documentation and monitoring only (see Qreads). ASSESSMENT / PLAN # Neoplasm of uncertain behavior leg, left masters, ddx SCC -will biopsy as below: PROCEDURE Biopsy via tangential shave technique SITE: leg, left masters (see photo in Qreads) PROCEDURE: A procedural pause was conducted to verify: correct patient identity, procedure to be performed, and as applicable, correct side and site, correct patient position, and availability of implants, special equipment, or special requirements. We explained the potential diagnosis and advised biopsy. Discussed the risks including scar, open wound, infection and incomplete removal, as well asbenefits and alternatives. All questions answered and consent was given. The site was marked by Dr. Rivera. Area was then prepped with alcohol and anesthetized with 1% lidocaine with 1:100,000 epinephrine. The lesion was shave- biopsied down to dermis and aluminum chloride followed by petrolatum ointment and bandage were applied. Performed by Dr. Rivera. POSTOPERATIVE INSTRUCTIONS: Wound care instructions were given. She was advised to please call if not informed of results within 2 weeks. # Benign nevi -discussed benign diagnosis -discussed ABCDEs of melanoma -pt to RTC if noting any changes in current nevi or development of new lesions # Seborrheic keratoses -discussed benign diagnosis -no need for treatment at this time # Irritated/inflamed seborrheic keratosis(es) -reviewed benign nature -as the lesion(s) are irritated/pruritic/tender, will treat with cryotherapy as below Procedure: Cryotherapy Informed verbal consent was obtained in the patient???s [place] language by Dr. Rivera wherein commonrisks, benefits, and alternatives explained. Side effects including but not limited to erythema, edema, blistering, bruising, infection, scarring, dyspigmentation, recurrences, and no improvement were discussed. 9 lesion(s) located on the left lateral abdomen and left upper lateral chest and also left anteriorneck treated with LN2. The patient tolerated the procedure well without complications. Verbal woundcare instructions were given to the patient. Patient asked to call if there is any problem. # Gutierrez angiomas -discussed benign diagnosis -no need for treatment at this time # Solar lentigines -discussed benign diagnosis though also discussed relationship to ultraviolet exposure -discussed need for ongoing photoprotection # Seborrheic dermatitis -reviewed the condition and explained chronic/recurrent nature -advised to wash face daily with pyrithione zinc bar soap -start ciclopirox 0.77% cream BID PRN to affected areas -call if worsening # History of squamous cell carcinomas -no evidence of recurrence -full skin exam performed today and concerning lesions listed above -discussed importance of sun avoidance, protection with SPF 30+ to be applied every 2 hours and useof photoprotective clothing -reviewed signs and symptoms of melanoma and NMSC -advised monthly self skin examinations and should seek care with any concerns RTC in 6-8 weeks to discuss field therapy, earlier with concerns. Delaney Rivera MD Family Medicine Skin Care [facility] Dermatology Department This note was partially scribed by Tiara Garnett LPN, in the presence of Delaney Rivera M.D. documented in this encounter Miscellaneous Notes * Result Encounter Note - Delaney Rivera M.D. - 08/08/2024 3:29 PM CDT Please call patient with results. Lesion on left masters = SCC. Please schedule MMS and add new diagnosis to medical history. Recheck in December as scheduled with me for FSE. documented in this encounter Plan of Treatment Upcoming Encounters Date Type Department Care Team (Late st Contact Info) Description 08/28/2024 3:00 PM HARDWARE INSTALLATION COORDINATOR Nurse Only Department of Dermatology in [address] [phone] Brittany Cazares M.D. [address] [place] [phone] documented as of this encounter Procedures Procedure Name Priority Date/Time Associated Diagnosis Comments DERMATOPATHOLOGY Routine 08/06/2024 11:2 9 AM CDT Neoplasm Uncertain Behavior Skin documented in this encounter Results * Dermatopathology (08/06/2024 11:29 AM CDT) 08/08/2024 [...] LAB PATH DERM ORDERABLES Fi nal Result [facility] [address] [place] [address], [facility] [address] [address] documented in this encounter Visit Diagnoses Diagnosis Neoplasm Uncertain Behavior Skin- Primary Cancer Skin Squamous Cell Personal History Keratosis Seborrheic Lentigo Angioma Gutierrez Nevi Multiple Dermatitis Seborrheic Keratosis Seborrheic Inflamed documented in this encounter Additional Health Concerns Assessment Noted Time PHQ-9 Depression Total Score: 0 09/19/20 17 8:32 AM HARDWARE INSTALLATION COORDINATOR documented as of this encounter Care Teams Graphics Manager Relationship Specialty Start Date End Date Britney Ramirez APRN, C.N.P., D.N.P. [address] [phone] PCP - General 04/10/23 documented as of this encounter
--- OUTSIDE RECORDS SUMMARY | 2024-08-22 08:00 | XMS_ITS | Encounter Summary ---
Author Organization [facility] Address [address] [place] [address] Care Team Providers Care Division Engineer Name Role Phone Britney Ramirez APRN, C.N.P., D.N.P. P [facility] Care Provider Encounter Details Date Type Department Care Team (Late st Contact Info) Description 08/20/2024 2:40 PM SAMPLE DRILLER Ancillary Procedure Department of Dermatology Arrived Social History Tobacco Use Types Packs/Day Years Used Date Smoking Tobacco: Never Smokeless Tobacco: Never Alcohol Use Standard Drinks/Week Comments Not Currently 0 (1 standard drink = 0.6 oz pur e alcohol) [facility] Utilities Answer Date Recorded In the past 12 months has [employer], gas, oil, or water [employer] threatened to shut off services in your [...] declined 10/28/2022 How often do you attend mu-ism or christian serv ices? Patient declined 10/28/2022 Do you belong to any clubs o r organizations such as mu-ism groups, unions, fraternal or [...] Answer Date Recorded PHQ-2 Score 0 11/07/2022 [facility] Occupat ional [facility] - Occupational Stress Questionnaire Answer [...] your living situation today? I have a [facility] place to live 04/16/2024 Education Answer Date Recorded What is the highest level of school you have completed or the highest degree you have received? Associate degree: occupational, technical, or vocational program 02/02/2021 Comments No Sex and Gender Information Value Date Recorded Sex Assigned at Female 12/15/2022 12:54 PM SAMPLE DRILLER Legal Sex Female 11:38 PM SAMPLE DRILLER Gender Identity Female 09/19/2017 11:16 AM SAMPLE DRILLER Sexual Orientation Straight 09/19/2017 11 :16 AM SAMPLE DRILLER documented as of this encounter Plan of Treatment Upcoming Encounters Date Type Department Care Team (Late st Contact Info) Description 08/28/2024 3:00 PM SAMPLE DRILLER Nurse Only Department of Dermatology in [place], [place] [address] [place] [address] Brittany Cazares M.D. [address] [place] [phone] documented as of this encounter Procedures Procedure Name Priority Date/Time Associated Diagnosis Comments DERMATOLOGY IMAGE EXAM Routine 08/20/2024 2:39 PM SAMPLE DRILLER documented in this encounter Results * Leg left 528b-Dermatology Image Exam (08/20/2024 2:39 PM SAMPLE DRILLER) 08/20/2024 2:36 PM SAMPLE DRILLER Narrative IIMS - 08/20/2024 2:39 PM SAMPLE DRILLER This order has been created and auto-finalized to support the import of images acquired without order. The clinical documentation to support these images can be found on the encounter that produced images. us Provider Not In System IMG NON RAD IMAGING PROCE DURES Final Result IIMS NA documented in this encounter Visit Diagnoses Not on filedocumented in this encounter Additional Health Concerns Assessment Noted Time PHQ-9 Depression Total Score: 0 09/19/20 17 8:32 AM SAMPLE DRILLER documented as of this encounter Care Teams Division Engineer Relationship Specialty Start Date End Date Jv-Britney Bass APRN, C.N.P., D.N.P. [address] [place] [phone] PCP - General 04/10/23 documented as of this encounter
--- OUTSIDE RECORDS SUMMARY | 2024-08-22 08:00 | XMS_ITS | Encounter Summary ---
Author Organization [facility] Address [address] [place] [address] Care Team Providers Care Director Learning Services Name Role Phone Britney Ramirez APRN, C.N.P., D.N.P. P [facility] Care Provider Reason for Visit * Reason Comments Med Refill Encounter Details Date Type Department Care Team (Late st Contact Info) Description 06/05/2024 Refill [facility] in [place], [place] [address] [place] [address] Britney Ramirez APRN, C.N.P., D.N.P. [address] [place] [phone] Med Refill Social History Tobacco Use Types Packs/Day Years Used Date Smoking Tobacco: Never Smokeless Tobacco: Never Alcohol Use Standard Drinks/Week Comments Not Currently 0 (1 standard drink = 0.6 oz pur e alcohol) [facility] Utilities Answer Date Recorded In the past 12 months has e electric, gas, oil, or water company [...] declined 10/28/2022 How often do you attend religion or bahai serv ices? Patient declined 10/28/2022 Do you belong to any clubs o r organizations such as religion groups, unions, fraternal or [...] Answer Date Recorded PHQ-2 Score 0 11/07/2022 [facility] of Occupat ional Health - Occupational Stress [...] Sex Assigned at Female 12/15/2022 12:54 PM FORK LIFT TRUCK OPERATOR Legal Sex Female 11:38 PM FORK LIFT TRUCK OPERATOR Gender Identity Female 09/19/2017 11:16 AM FORK LIFT TRUCK OPERATOR Sexual Orientation Straight 09/19/2017 11 :16 AM FORK LIFT TRUCK OPERATOR documented as of this encounter Plan of Treatment Upcoming Encounters Date Type Department Care Team (Late st Contact Info) Description 08/28/2024 3:00 PM FORK LIFT TRUCK OPERATOR Nurse Only Department of Dermatology in [place], [place] [address] [place] [phone] Brittany Cazares M.D. [address] [place] [address] documented as of this encounter Visit Diagnoses Diagnosis Sinusitis Acute Maxillary documented in this encounter Additional Health Concerns Assessment Noted Time PHQ-9 Depression Total Score: 0 09/19/20 17 8:32 AM FORK LIFT TRUCK OPERATOR documented as of this encounter Care Teams Director Learning Services Relationship Specialty Start Date End Date Jv-Britney Bass APRN, C.N.P., D.N.P. [address] [place] [phone] PCP - General 04/10/23 documented as of this encounter
--- OUTSIDE RECORDS SUMMARY | 2024-08-22 08:00 | XMS_ITS | Referral Summary ---
Author Organization [facility] Address [address] [place] [address] Care Team Providers Care Turner In Name Role Phone Britney Ramirez APRN C.N.PKarol, D.N.P. P [place] Care Provider Source Comments Patient records contain information from all sites at [facility]. For routine questions regarding patient records, call [phone] during business hours, M-F 8:00 AM - 5:00 PM Central Time. Record requests for emergency care only can be directed to [phone] at any time.[facility] Encounters Date Type Department Care Team Description 08/20/2024 2:40 PM SITE PROJECT MANAGER Ancillary Procedure Department of Dermatology Arrived 08/20/2024 2:15 PM SITE PROJECT MANAGER Nurse Only Department of Dermatology in [address] [phone] Brittany Cazares M.D. Criss Malone M.S.N., R.N. Wound Check (UNNA boot) 08/13/2024 11:35 AM CDT Ancillary Procedure Department of Dermatology 08/13/2024 11:30 AM CDT Procedure visit Department of Dermatology in [address] [phone] Brittany Cazares M.D. 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 08/06/2024 11:15 AM CDT Ancillary Procedure Department of Dermatology 08/06/2024 10:45 AM CDT Comprehensive Visit Department of Dermatology in [place], [place] [address] [place] [phone] Delaney Rivera M.D. Neoplasm Uncertain Behavior Skin (Primary Dx); Cancer Skin Squamous Cell Personal History; Keratosis Seborrheic; Lentigo; Angioma Gutierrez; Nevi Multiple; Dermatitis Seborrheic; Keratosis Seborrheic Inflamed 07/30/2024 Refill [facility] in [place], [place] [address] [place] [phone] Britney Ramirez APRN, C.N.P., D.N.P. Med Refill 07/27/2024 Refill [facility] in [place], [place] [address] [place] [phone] Jarrell Coronel PKarolAKarol-Klaudia. Med Refill 06/05/2024 Refill [facility] at [facility] in [place], [place] [address] [place] [phone] Britney Ramirez APRN, C.N.P., D.N.P. Med Refill from Last 3 Months Allergies Active Allergy Reactions Criticality Noted Date [...] by mouth daily. 04/04/20 12 Active multivitamin-C d-yqud-cqhtwde s tablet Take 1 tablet by mouth daily. 01/15/20 10 Active verapamiL (VERELAN) 180 mg 24 hr capsuleIndicat ions:Raynaud's Disease Take 1 capsule (180 mg total) by mouth daily as needed (Reynaud's disease). 30 capsule 1 04/14/20 21 Active ammonium lactate (AMLACTIN) 12 % cream APPLY TO DRY LESIONS ON BODY ONCE A DAY AFTER SHOWERING 08/28/20 22 Active tretinoin (RETIN-A) 0.05 % cream APPLY [...] weeks. She was under the care of [facility] in [place]. She also sees a chiropractor who does [...] She got the wound culture results from [facility]. The wound is growing Pseudomonas and Serratia. [...] has been receiving wound care through [facility] in [place]. She has been a a series of antibiotics since October and November. She is currently on cephalexin. She had wound culture done at the wellness manager yesterday and results are pending. She had [...] years. Assessment & Plan (11/09/2022 12:36 PM SITE PROJECT MANAGER): Based on the above history and the [...] Extremity Right 08/31/2005 Overview (11/07/2022): LW Onset: [id number] ; Varicose Veins Resolved Problems Problem Noted Date Diagnosed Date Resolved Date Depression/Mireya/Bipolar NOS 12/13/2013 11/07/2022 Overview (03/07/2017): Mood disorder NOS. Varicose Vein Lower Extremity 06/11/2010 09/19/2017 Immunizations Name Administration Dates Next Due Influenza, Injectable, Quadrivalent 07/11/2019,0 07/13/2017,07/08/2015 Influenza, Unspecified 07/29/2016,2014,07/22/2014,2012,09/25/2012 Tdap 11/07/2022,03/23/2010 influenza vaccine quad (FLUZONE/FLUARIX) (6 months and older)(PF) 09/12/2022,09/18/2018 Social History Tobacco Use Types Packs/Day Years Used Date Smoking Tobacco: Never Smokeless Tobacco: Never Tobacco Cessation:Counseling Given: Not Answered Alcohol Use Standard Drinks/Week Comments Not Currently 0 (1 standard drink = 0.6 oz pur e alcohol) [facility] Utilities Answer Date Recorded In the past 12 months has e [employer], oil, or water [employer] threatened to shut off services in your [...] declined 10/28/2022 How often do you attend jewish or gnosticism serv ices? Patient declined 10/28/2022 Do you belong to any clubs o r organizations such as jewish groups, unions, fraternal or athletic groups, or [...] Answer Date Recorded PHQ-2 Score 0 11/07/2022 [facility] of Occupat ional Health - Occupational Stress [...] your living situation today? I have a [facility] place to live 04/16/2024 Education Answer Date Recorded What is the highest level of school you have completed or the highest degree you have received? Associate degree: occupational, technical, or vocational program 02/02/2021 Comments No Sex and Gender Information Value Date Recorded Sex Assigned at Female 12/15/2022 12:54 PM SITE PROJECT MANAGER Legal Sex Female 11:38 PM SITE PROJECT MANAGER Gender Identity Female 09/19/2017 11:16 AM SITE PROJECT MANAGER Sexual Orientation Straight 09/19/2017 11 :16 AM SITE PROJECT MANAGER Last Filed Vital Signs Vital Sign Reading Time Taken Comments Blood Pressure 127/85 08/13/2024 11:24 AM CDT Pulse 84 08/13/2024 11:24 AM CDT Temperature 37.2 ??C (99 ??F) 08/13/2024 11:24 AM CDT Respiratory Rate 18 08/13/2024 11:24 AM CDT Oxygen Saturation 100% 08/13/2024 11:24 AM CDT Inhaled Oxygen Concentration - - Weight 73.3 kg (161 lb 9.6 oz) 12/23/2022 11:00 AM SITE PROJECT MANAGER Height 176.2 cm (5' 9.37) 12/23/2022 11:[address] Body Mass Index 23.61 12/23/2022 11:00 AM SITE PROJECT MANAGER Plan of Treatment Upcoming Encounters Date Type Department Care Team (Late st Contact Info) Description 08/28/2024 3:00 PM SITE PROJECT MANAGER Nurse Only Department of Dermatology in [place], [place] [address] [place] [address] Brittany Cazares M.D. [address] [place] [address] Procedures Procedure Name Priority Date/Time Associated Diagnosis Comments DERMATOLOGY IMAGE EXAM Routine 4 2:39 PM SITE PROJECT MANAGER DERMATOLOGY IMAGE EXAM Routine 4 11:35 AM [...] inpatients and all outpatients) 11/03/2023 10:12 AM SITE PROJECT MANAGER Screening Mammogram Breast Cancer GLUCOSE, FASTING, S/P Routine 12/15/2022 9:25 AM SITE PROJECT MANAGER Screening Test Laboratory from Last 3 Months or Most Recently Relevant to Health Maintenance Results * Leg left 528b-Dermatology Image Exam (08/20/2024 2:39 PM SITE PROJECT MANAGER) Only the most recent of3 resultswithin the time period is included. 08/20/2024 2:36 PM SITE PROJECT MANAGER Narrative IIMS - 08/20/2024 2:39 PM SITE PROJECT MANAGER This order has been created and auto-finalized to support the import of images acquired without order. The clinical documentation to support these images can be found on the encounter that produced images. us Provider Not In System IMG NON RAD IMAGING PROCE DURES Final Result IIMS NA * [facility] single site (08/13/2024 11:30 AM CDT) Narrative Brittany Cazares M.D. - 08/13/2024 11:30 AM CDT Brittany Cazares M.D. ? 08/14/2024 ??1:03 PM PREOP INDICATION: REMOVAL. Date of Surgery: 08/13/2024 Surgeon: Dr. Wilma Cazares M.D. Location: [facility] Visit Type: Outpatient PostOp Diagnosis: same Anatomic Location: left masters Preoperative size: 1.4 x 1.5 cm [facility] number: [id number] Indication(s) for Mohs Micrographic [...] field therapy to the left masters using 3-octalrugorxe-cuvhpcjxcgnrz twice daily for 14-21 days once the skin of the masters has completely healed from today's procedure. --- Wilma Cazares M.D. Delaney Rivera M.D. DERM PROCEDURE ORDERABLES F inal Result * Dermatopathology (08/06/2024 11:29 AM CDT) 08/08/2024 8:53 AM CDT TO Report Electronically Signed By Quinton Wallace M.D. [...] CDT MKTO Specimen Source A. Left masters 10/24/2 024 8:53 AM CDT MKTO Clinical Information Squamous [...] LAB PATH DERM ORDERABLES Fi nal Result [facility] [address] [place] [address], [facility] MKTO [address] [place] [address] * Lipid Panel (12/29/2023 8:58 AM CDT) [...] equation. Cholesterol, HDL 64 >=50 mg/dL 12/29/19 24 2:13 PM CDT OWAT Cholesterol, Non-HDL, Calculated 111 mg/dL 12/29/2023 2:13 PM CDT OWAT Comment: ----REFERENCE VALUE---- Desirable: <130 mg/dL Above Desirable: 130-159 mg/dL Borderline High: 160-189 mg/dL High: 190-219 mg/dL Very High: > or =220 mg/dL Fasting (8 HR or more) yes 12/29/2023 1:08 PM CDT OWAT Blood (Blood, Venous) 12/29/2023 8:58 AM CDT 12/29/2023 1:08 PM CDT us Janice SKINNER, P.A.-C. LAB BLOOD ADD-ON Final Result [facility] [address] [place] [address], [facility] OWAT [facility] [place] [address] [place] [address] * BI Breast Screening Bilateral with Tomosynthesis (11/03/2023 10:12 AM SITE PROJECT MANAGER) Anatomical Region Laterality Modality Breast, Breast Imaging RST L OS, Breast Imaging ARZ LOS, Breast Imaging FLA LOS Bilateral Mammography Impressions 11/03/2023 10:34 AM SITE PROJECT MANAGER Negative. RECOMMENDATION: ??Annual Screening Mammogram ASSESSMENT: ??BI-RADS: 1: Negative. Narrative 11/03/2023 10:34 AM SITE PROJECT MANAGER EXAM: ??BI BREAST SCREENING BILATERAL WITH TOMOSYNTHESIS [...] Result * Glucose, Fasting (12/15/2022 9:25 AM SITE PROJECT MANAGER) Glucose, P 96 70 - 100 mg/dL 12/15/2022 11:52 AM SITE PROJECT MANAGER OWAT Last Intake 16 hr 12/15/2022 11:05 AM SITE PROJECT MANAGER OWAT Blood (Blood, Venous) 12/15/2022 9:25 AM SITE PROJECT MANAGER 12/15/2022 11:05 AM SITE PROJECT MANAGER Janice SKINNER, P.A.-C. LAB BLOOD NON ADD -ON Final Result [facility] [address] [place] [address], [facility] OWAT [facility] [place] [address] [place] [address] from Last 3 Months or Most Recently Relevant to Health Maintenance Insurance [employer] [place] [id number] Care Teams Turner In Relationship Specialty Start Date End Date Jv-Britney Bass APRN, C.N.P., D.N.P. [address] [place] [phone] PCP - General 04/10/23
== END 2024-08-22 07:55 | disposition home or self-care (01) ==
PROVIDERS: PCP Internal Medicine; Visit Provider Nurse Practitioner Family
DX: Z48.817 Encounter for surgical aftercare following surgery on the skin and subcutaneous tissue (principal); C44.92 Squamous cell carcinoma of skin, unspecified
CPT/HCPCS: 11042; G0463

== ENCOUNTER 2024-08-29 08:41 | Outpatient (CLI) | payer OTHER, SELFPAY ==
--- OUTSIDE RECORDS SUMMARY | 2024-08-29 08:42 | XMS_ITS | Referral Summary ---
Author Organization [facility] Address [address] [place] [address] Care Team Providers Care Special Education Inclusion Teacher Name Role Phone Britney Ramirez APRN C.N.PKarol, D.N.P. P [facility] Care Provider Source Comments Patient records contain information from all sites at [facility]. For routine questions regarding patient records, call [phone] during business hours, M-F 8:00 AM - 5:00 PM Central Time. Record requests for emergency care only can be directed to [phone] at any time.[facility] Encounters Date Type Department Care Team Description 08/20/2024 2:40 PM STRETCHER HELPER Ancillary Procedure Department of Dermatology 08/20/2024 2:15 PM STRETCHER HELPER Nurse Only Department of Dermatology in [address] [address] Brittany Cazares M.D. Criss Malone M.S.N., R.N. Wound Check (UNNA boot) 08/13/2024 11:35 AM CDT Ancillary Procedure Department of Dermatology 08/13/2024 11:30 AM CDT Procedure visit Department of Dermatology in [address] [phone] Brittany Cazares M.D. 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 08/06/2024 11:15 AM CDT Ancillary Procedure Department of Dermatology 08/06/2024 10:45 AM CDT Comprehensive Visit Department of Dermatology in [place], [place] [address] [place] [phone] Delaney Rivera M.D. Neoplasm Uncertain Behavior Skin (Primary Dx); Cancer Skin Squamous Cell Personal History; Keratosis Seborrheic; Lentigo; Angioma Gutierrez; Nevi Multiple; Dermatitis Seborrheic; Keratosis Seborrheic Inflamed 07/30/2024 Refill Department of [facility] in [place], [place] [address] [place] [phone] Britney Ramirez APRN, C.N.P., D.N.P. Med Refill 07/27/2024 Refill Department of [facility] in [place], [place] [address] [place] [phone] Jarrell Coronel P.A.-C. Med Refill 06/05/2024 Refill [facility] at [facility] in [place], [place] [address] [place] [phone] Britney Ramirez APRN, C.N.P., D.N.P. Med Refill from Last 3 Months Allergies Active Allergy Reactions Criticality Noted Date Comments Adhesive Other (see comments) 01/21/2021 Skin itchy, bumpy and skin reddened in area covered by bandaid Titanium Other (see comments) 02/21/2018 Medications * This document contains information received from the source organization and may not represent a complete record from that organization. B complex-vitamin s (BALANCE B-50) tablet Take 1 tablet by mouth daily. 07/09/20 14 Active FSH/FLX/PRIM/CU R/BOR/OM3,6,9 5 (OMEGA 3-6-9 FATTY ACIDS ORAL) Take 1 capsule by mouth daily. 01/22/20 14 Active calcium carbonate-vitam in D3 600 mg-5 mcg (200 unit) capsule Take 1 tablet by mouth daily. 04/04/20 12 Active multivitamin-Ca -iron-minerals tablet Take 1 tablet by mouth daily. 01/15/20 10 Active verapamiL (VERELAN) 180 mg 24 hr capsuleIndicati ons:Raynaud's Disease Take 1 capsule (180 mg total) [...] Active fluticasone propionate (Flonase) 50 mcg/actuation nasal sprayIndication s:Sinusitis Acute Maxillary ADMINISTER 1 SPRAY INTO EACH NOSTRIL TWICE DAILY. USE OVER THE NEXT 10-14 DAYS FOR SINUS AND EAR CONGESTION. 48 g 3 06/05/20 24 Active atorvastatin (Lipitor) 10 mg tabletIndicatio ns:Hypercholest erolemia take 1/2 tablet by mouth every day 30 tablet 07/30/20 24 Active ciclopirox (Loprox) 0.77 % cream Apply 1 Application topically 2 (two) times a day. Gently massage into affected areas and surrounding skin 30 g 2 08/06/20 24 024 Active chlorhexidine (PERIDEX) 0.12 % mouthwash RINSE WITH 1 CAPFUL TWICE DAILY 12/09/19 23 024 Discontinu ed(Therapy completed) doxycycline monohydrate (Monodox) 100 mg capsule Take 1 capsule (100 mg total) by mouth 2 (two) times a day before morning and evening meals for 14 days. 28 capsule 08/13/20 24 024 Active Problems Patient Care Coordination No te [...] under the care of [facility] in [place]. She also sees a chiropractor who does [...] She got the wound culture results from [facility]. The wound is growing Pseudomonas and Serratia. [...] She has been receiving wound care through [facility] in [place]. She has been a a series of antibiotics since October and November. She is currently on cephalexin. She had wound culture done at the product lead yesterday and results are pending. She had [...] years. Assessment & Plan (11/09/2022 12:36 PM STRETCHER HELPER): Based on the above history and the [...] Extremity Right 08/31/2005 Overview (11/07/2022): LW Onset: [id number] ; Varicose Veins Resolved Problems Problem Noted [...] drink = 0.6 oz pur e alcohol) [facility] Utilities Answer Date Recorded In the past [...] declined 10/28/2022 How often do you attend sikhism or jehovah's witness serv ices? Patient declined 10/28/2022 Do you belong to any clubs o r organizations such as sikhism groups, unions, fraternal or [...] Answer Date Recorded PHQ-2 Score 0 11/07/2022 [facility] Occupat ional Health - Occupational Stress [...] Sex Assigned at Female 12/15/2022 12:54 PM STRETCHER HELPER Legal Sex Female 11:38 PM STRETCHER HELPER Gender Identity Female 09/19/2017 11:16 AM STRETCHER HELPER Sexual Orientation Straight 09/19/2017 11 :16 AM STRETCHER HELPER Last Filed Vital Signs Vital Sign Reading Time Taken Comments Blood Pressure 127/85 08/13/2024 11:24 AM CDT Pulse 84 08/13/2024 11:24 AM CDT Temperature 37.2 ??C (99 ??F) 08/13/2024 11:24 AM CDT Respiratory Rate 18 08/13/2024 11:24 AM CDT Oxygen Saturation 100% 08/13/2024 11:24 AM CDT Inhaled Oxygen Concentration - - Weight 73.3 kg (161 lb 9.6 oz) 12/23/2022 11:00 AM STRETCHER HELPER Height 176.2 cm (5' 9.37) 12/23/2022 11:[address] Body Mass Index 23.61 12/23/2022 11:00 AM STRETCHER HELPER Plan of Treatment Not on file Procedures Procedure Name Priority Date/Time Associated Diagnosis Comments DERMATOLOGY IMAGE EXAM Routine 4 2:39 PM STRETCHER HELPER DERMATOLOGY IMAGE EXAM Routine 4 11:35 AM [...] inpatients and all outpatients) 11/03/2023 10:12 AM STRETCHER HELPER Screening Mammogram Breast Cancer GLUCOSE, FASTING, S/P Routine 12/15/2022 9:25 AM STRETCHER HELPER Screening Test Laboratory from Last 3 Months or Most Recently Relevant to Health Maintenance Results * Leg left 528b-Dermatology Image Exam (08/20/2024 2:39 PM STRETCHER HELPER) Only the most recent of3 resultswithin the time period is included. 08/20/2024 2:36 PM STRETCHER HELPER Narrative IIMS - 08/20/2024 2:39 PM STRETCHER HELPER This order has been created and auto-finalized to support the import of images acquired without order. The clinical documentation to support these images can be found on the encounter that produced images. us Provider Not In System IMG NON RAD IMAGING PROCE DURES Final Result IIMS NA * [facility] single site (08/13/2024 11:30 AM CDT) Narrative Brittany Cazares M.D. - 08/13/2024 11:30 AM CDT Brittany Cazares M.D. ? 08/14/2024 ??1:03 PM PREOP INDICATION: REMOVAL. Date of Surgery: 08/13/2024 Surgeon: Dr. Wilma Czaares M.D. Location: [facility] Visit Type: Outpatient PostOp Diagnosis: same Anatomic Location: left masters Preoperative size: 1.4 x 1.5 cm [facility] number: [id number] Indication(s) for Mohs Micrographic Surgery: [...] field therapy to the left masters using 6-wfvbmfaozgei-osjaryxvpgtif twice daily for 14-21 days once the [...] CDT MKTO Specimen Source A. Left masters 024 8:53 AM CDT MKTO Clinical Information [...] LAB PATH DERM ORDERABLES Fi nal Result [facility] [address] [place] [address], [facility] MKTO [address] [facility] [address] [place] [address] * Lipid Panel (12/29/2023 8:58 AM CDT) [...] CDT 12/29/2023 1:08 PM CDT Janice SKINNER P.A.-C. LAB BLOOD ADD-ON Final Result [facility] [address] [place] [address], [place] OWAT [facility] [place] [address] [place] [address] * BI Breast Screening Bilateral with Tomosynthesis (11/03/2023 10:12 AM STRETCHER HELPER) Anatomical Region Laterality Modality Breast, Breast Imaging RST L OS, Breast Imaging ARZ LOS, Breast Imaging FLA LOS Bilateral Mammography Impressions 11/03/2023 10:34 AM STRETCHER HELPER Negative. RECOMMENDATION: ??Annual Screening Mammogram ASSESSMENT: ??BI-RADS: 1: Negative. Narrative 11/03/2023 10:34 AM STRETCHER HELPER EXAM: ??BI BREAST SCREENING BILATERAL WITH TOMOSYNTHESIS [...] Result * Glucose, Fasting (12/15/2022 9:25 AM STRETCHER HELPER) Glucose, P 96 70 - 100 mg/dL 12/15/2022 11:52 AM STRETCHER HELPER OWAT Last Intake 16 hr 12/15/2022 11:05 AM STRETCHER HELPER OWAT Blood (Blood, Venous) 12/15/2022 9:25 AM STRETCHER HELPER 12/15/2022 11:05 AM STRETCHER HELPER us Janice SKINNER, P.A.-C. LAB BLOOD NON ADD -ON Final Result [facility] [address] [place] [address], [place] OW[place] [facility] [place] [address] [place] [address] from Last 3 Months or Most Recently Relevant to Health Maintenance Insurance MEDICA Care Teams Special Education Inclusion Teacher Relationship Specialty Start Date End Date Britney Ramirez APRN, C.N.P., D.N.P. [address], [place] [phone] PCP - General 04/10/23
--- OUTSIDE RECORDS SUMMARY | 2024-08-29 08:42 | XMS_ITS | Encounter Summary ---
Author Organization [facility] Address [address] [place] [address] Care Team Providers Care Reclamation Kettle Tender Name Role Phone Britney Ramirez APRN, C.N.P., D.N.P. P [facility] Care Provider Encounter Details Date Type Department Care Team (Late st Contact Info) Description 08/20/2024 2:40 PM TOWERMAN Ancillary Procedure Department of Dermatology Social History Tobacco Use Types Packs/Day Years Used Date Smoking Tobacco: Never Smokeless Tobacco: Never Alcohol Use Standard Drinks/Week Comments Not Currently 0 (1 standard drink = 0.6 oz pur e alcohol) [facility] Utilities Answer Date Recorded In the past 12 months has [employer], gas, oil, or water [employer] threatened to shut off services in your [...] declined 10/28/2022 How often do you attend congregation or rastafarian serv ices? Patient declined 10/28/2022 Do you belong to any clubs o r organizations such as congregation groups, unions, fraternal or [...] Answer Date Recorded PHQ-2 Score 0 11/07/2022 [facility] of Occupat ional [facility] - Occupational Stress Questionnaire Answer Date Recorded [...] your living situation today? I have a [facility] place to live 04/16/2024 Education Answer Date Recorded What is the highest level of school you have completed or the highest degree you have received? Associate degree: occupational, technical, or vocational program 02/02/2021 Comments No Sex and Gender Information Value Date Recorded Sex Assigned at Female 12/15/2022 12:54 PM TOWERMAN Legal Sex Female 11:38 PM TOWERMAN Gender Identity Female 09/19/2017 11:16 AM TOWERMAN Sexual Orientation Straight 09/19/2017 11 :16 AM TOWERMAN documented as of this encounter Plan of Treatment Not on file documented as of this encounter Procedures Procedure Name Priority Date/Time Associated Diagnosis Comments DERMATOLOGY IMAGE EXAM Routine 08/20/2024 2:39 PM TOWERMAN documented in this encounter Results * Leg left 528b-Dermatology Image Exam (08/20/2024 2:39 PM TOWERMAN) 08/20/2024 2:36 PM TOWERMAN Narrative IIMS - 08/20/2024 2:39 PM TOWERMAN This order has been created and auto-finalized [...] Total Score: 0 09/19/20 17 8:32 AM TOWERMAN documented as of this encounter Care Teams Reclamation Kettle Tender Relationship Specialty Start Date End Date Miles-Britney Bass APRN, C.N.P., D.N.P. [address] [place] [phone] PCP - General 04/10/23 documented as of this encounter
--- OUTSIDE RECORDS SUMMARY | 2024-08-29 08:42 | XMS_ITS | Clinical Summary ---
Author Organization [facility] Address [address] [place] [address] Care Team Providers Care Outside Installer Apprentice Name Role Phone Britney Ramirez APRN, C.N.P., D.N.P. P [facility] Care Provider Source Comments Patient records contain information from all sites at [facility]. For routine questions regarding patient records, call [phone] during business hours, M-F 8:00 AM - 5:00 PM Central Time. Record requests for emergency care only can be directed to [phone] at any time.[facility] Allergies Active Allergy Reactions Criticality [...] diagnosis of Fibromyalgia. Infection Wound Postoperative Subsequent Overview (01/14/2021): Infection and nonhealing surgical wound [...] weeks. She was under the care of [facility] in [place]. She also sees a chiropractor who does [...] She got the wound culture results from [facility]. The wound is growing Pseudomonas and [...] She has been receiving wound care through [facility] in [place]. She has been a a series of antibiotics since October and November. She is currently on cephalexin. She had wound culture done at the logging shovel operator yesterday and results are pending. She had [...] years. Assessment & Plan (11/09/2022 12:36 PM COTTON BAG SEWER): Based on the above history and the [...] Extremity Right 08/31/2005 Overview (11/07/2022): LW Onset: [id number] ; Varicose Veins Resolved Problems Problem Noted Date Diagnosed Date Resolved Date Depression/Mireya/Bipolar NOS 12/13/2013 11/07/2022 Overview (03/07/2017): Mood disorder NOS. Varicose Vein Lower Extremity 06/11/2010 09/19/2017 Encounters Date Type Department Care Team Description 08/20/2024 2:40 PM COTTON BAG SEWER Ancillary Procedure Department of Dermatology 08/20/2024 2:15 PM COTTON BAG SEWER Nurse Only Department of Dermatology in [address] [phone] Brittany Cazares M.D. Criss Malone M.S.N., R.N. Wound Check (UNNA boot) 08/13/2024 11:35 AM CDT Ancillary Procedure Department of Dermatology 08/13/2024 11:30 AM CDT Procedure visit Department of Dermatology in [place], [place] [address] [place] [address] Brittany Cazares M.D. 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 08/06/2024 11:15 AM CDT Ancillary Procedure Department of Dermatology 08/06/2024 10:45 AM CDT Comprehensive Visit Department of Dermatology in [place], [place] [address] [place] [address] Delaney Rivera M.D. Neoplasm Uncertain Behavior Skin (Primary Dx); Cancer Skin Squamous Cell Personal History; Keratosis Seborrheic; Lentigo; Angioma Gutierrez; Nevi Multiple; Dermatitis Seborrheic; Keratosis Seborrheic Inflamed 07/30/2024 Refill Department of [facility] in [place], [place] [address] [place] [address] Britney Ramirez APRN, C.N.P., D.N.P. Med Refill 07/27/2024 Refill Department of Community Internal Medicine in [address] [phone] Jarrell Coronel P.A.-C. Med Refill 06/05/2024 Refill [facility] Care at [facility] in [place], [place] [address] [place] [address] Britney Ramirez APRN, C.N.P., D.N.P. Med Refill [...] drink = 0.6 oz pur e alcohol) [facility] Utilities Answer Date Recorded In the past 12 months has e [employer], [employer], oil, or water [employer] threatened to shut off services in your [...] declined 10/28/2022 How often do you attend anabaptism or voodoo serv ices? Patient declined 10/28/2022 Do you belong to any clubs o r organizations such as anabaptism groups, unions, fraternal or athletic groups, or [...] Answer Date Recorded PHQ-2 Score 0 11/07/2022 [facility] - Occupational Stress Questionnaire Answer [...] Sex Assigned at Female 12/15/2022 12:54 PM COTTON BAG SEWER Legal Sex Female 11:38 PM COTTON BAG SEWER Gender Identity Female 09/19/2017 11:16 AM COTTON BAG SEWER Sexual Orientation Straight 09/19/2017 11 :16 AM COTTON BAG SEWER Last Filed Vital Signs Vital Sign Reading Time Taken Comments Blood Pressure 127/85 08/13/2024 11:24 AM CDT Pulse 84 08/13/2024 11:24 AM CDT Temperature 37.2 ??C (99 ??F) 08/13/2024 11:24 AM CDT Respiratory Rate 18 08/13/2024 11:24 AM CDT Oxygen Saturation 100% 08/13/2024 11:24 AM CDT Inhaled Oxygen Concentration - - Weight 73.3 kg (161 lb 9.6 oz) 12/23/2022 11:00 AM COTTON BAG SEWER Height 176.2 cm (5' 9.37) 12/23/2022 11:[address] Body Mass Index 23.61 12/23/2022 11:00 AM COTTON BAG SEWER Plan of Treatment Health Maintenance Due Date [...] Associated Diagnosis Comments DERMATOLOGY IMAGE EXAM Routine 2:39 PM COTTON BAG SEWER DERMATOLOGY IMAGE EXAM Routine 11:35 AM CDT LEELEE MOHS SINGLE SITE Routine 08/13/2024 11:30 AM CDT 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 DERMATOPATHOLOGY Routine 08/06/2024 11:29 AM CDT Neoplasm Uncertain Behavior Skin DERMATOLOGY IMAGE EXAM Routine 11:15 AM CDT LIPID PANEL, S Routine 12/29/2023 8:58 AM CDT General Medical Examination Adult BI BREAST SCREENING BILATERAL WITH TOMOSYNTHESIS RAD - Routine (most inpatients and all outpatients) 11/03/2023 10:12 AM COTTON BAG SEWER Screening Mammogram Breast Cancer GLUCOSE, FASTING, S/P Routine 12/15/2022 9:25 AM COTTON BAG SEWER Screening Test Laboratory from Last 3 Months or Most Recently Relevant to Health Maintenance Results * Leg left 528b-Dermatology Image Exam (08/20/2024 2:39 PM COTTON BAG SEWER) Only the most recent of3 resultswithin the time period is included. 08/20/2024 2:36 PM COTTON BAG SEWER Narrative IIMS - 08/20/2024 2:39 PM COTTON BAG SEWER This order has been created and auto-finalized to support the import of images acquired without order. The clinical documentation to support these images can be found on the encounter that produced images. us Provider Not In System IMG NON RAD IMAGING PROCE DURES Final Result IIMS NA * LEELEE MOHS single site (08/13/2024 11:30 AM CDT) Narrative Brittany Cazares M.D. - 08/13/2024 11:30 AM CDT Brittany Cazares M.D. ? 08/14/2024 ??1:03 PM PREOP INDICATION: REMOVAL. Date of Surgery: 08/13/2024 Surgeon: Dr. Wilma Cazares M.D. Location: [facility] Visit Type: Outpatient PostOp Diagnosis: same Anatomic Location: left masters Preoperative size: 1.4 x 1.5 cm [facility] number: [id number] Indication(s) for Mohs Micrographic Surgery: [...] field therapy to the left masters using 4-ythyretzfimx-jvgwjeeibaryu twice daily for 14-21 days once the [...] 9 AM CDT 08/06/2024 2:38 PM CDT Delaney Rivera M.D. LAB PATH DERM ORDERABLES Fi nal Result [facility] [address] [place] [address], [facility] MKTO [address] [address] * Lipid Panel (12/29/2023 8:58 AM CDT) [...] SKINNER, P.A.-C. LAB BLOOD ADD-ON Final Result [facility] [address] [place] [address], [facility] OWAT [facility] [place] [address] [place] [address] * BI Breast Screening Bilateral with Tomosynthesis (11/03/2023 10:12 AM COTTON BAG SEWER) Anatomical Region Laterality Modality Breast, Breast Imaging RST L OS, Breast Imaging ARZ LOS, Breast Imaging FLA LOS Bilateral Mammography Impressions 11/03/2023 10:34 AM COTTON BAG SEWER Negative. RECOMMENDATION: ??Annual Screening Mammogram ASSESSMENT: ??BI-RADS: 1: Negative. Narrative 11/03/2023 10:34 AM COTTON BAG SEWER EXAM: ??BI BREAST SCREENING BILATERAL WITH TOMOSYNTHESIS [...] Result * Glucose, Fasting (12/15/2022 9:25 AM COTTON BAG SEWER) Glucose, P 96 70 - 100 mg/dL 12/15/2022 11:52 AM COTTON BAG SEWER OWAT Last Intake 16 hr 12/15/2022 11:05 AM COTTON BAG SEWER OWAT Blood (Blood, Venous) 12/15/2022 9:25 AM COTTON BAG SEWER 12/15/2022 11:05 AM COTTON BAG SEWER Janice Ambrosio MPAS, P.A.-C. LAB BLOOD NON ADD -ON Final Result [facility] [address] [place] [address], [place] OWAT [facility] [place] [address] [place] [address] from Last 3 Months or Most Recently Relevant to Health Maintenance Insurance MEDICA Care Teams Outside Installer Apprentice Relationship Specialty Start Date End Date Jv-Britney Bass APRN, C.N.P., D.N.P. [address] [place] [address] PCP - General 04/10/23
--- OUTSIDE RECORDS SUMMARY | 2024-08-29 08:42 | XMS_ITS | Encounter Summary ---
Author Organization [facility] Address [address] [place] [address] Care Team Providers Care Rehabilitation Tech Name Role Phone Britney Ramirez APRN, C.N.PKarol, D.N.P. P [facility] Care Provider Reason for Referral * Outpatient (Routine) - Authorized Specialty Diagnoses / Procedures Referred By Contac t Referred To Contact Dermatology Brittany Cazares M.D. [address] [place] [phone] Phone: tel: fax: [facility] Referral ID Status Reason Start Date Expiration Date V isits Requested Visits Authorized [id number] Authorized 08/20/2024 02/19/2026 1 1 Scheduling Instructions Recheck MMS to left masters OGICAL AIDE Reason for Visit * Reason Comments Wound Check UNNA boot * Outpatient (Routine) - Closed Specialty Diagnoses / Procedures Referred By Contac t Referred To Contact Dermatology Brittany Cazares M.D. [address] [place] [phone] Phone: tel: fax: [facility] Referral ID Status Reason Start Date Expiration Date Visits Re quested Visits Authorized [id number] Closed 08/13/2024 02/12/2026 1 1 Encounter Details Date Type Department Care Team (Late st Contact Info) Description 08/20/2024 2:15 PM GEOLOGICAL AIDE Nurse Only Department of Dermatology in [place], [place] [address] [place] [phone] Brittany Cazares M.D. [address] [place] [phone] Criss Malone M.S.N., R.N. Wound Check (UNNA boot) Social History Tobacco Use Types Packs/Day Years Used Date Smoking Tobacco: Never Smokeless Tobacco: Never Alcohol Use Standard Drinks/Week Comments Not Currently 0 (1 standard drink = 0.6 oz pur e alcohol) [facility] Utilities Answer Date Recorded In the past 12 months has e [employer], gas, oil, or water [employer] threatened to shut off services in your [...] declined 10/28/2022 How often do you attend mosque or mandaeism serv ices? Patient declined 10/28/2022 Do you belong to any clubs o r organizations such as mosque groups, unions, fraternal or [...] Answer Date Recorded PHQ-2 Score 0 11/07/2022 [facility] of Occupat ional Health - [...] Sex Assigned at Female 12/15/2022 12:54 PM GEOLOGICAL AIDE Legal Sex Female 11:38 PM GEOLOGICAL AIDE Gender Identity Female 09/19/2017 11:16 AM GEOLOGICAL AIDE Sexual Orientation Straight 09/19/2017 11 :16 AM GEOLOGICAL AIDE documented as of this encounter Progress Notes [...] appears has slight erythema. Photos uploaded to [employer]. Dr. Cazares viewed the photos and recommends: - To apply Mupirocin/Telfa to wound and reapply UNNA boot - RTC in 1 week for wound check UNNA boot reapplied and patient advised to follow same instructions as last visit. All questions answered. OGICAL AIDE documented in this encounter Plan of Treatment Scheduled Referrals Name Type Priority Associated Diagnoses Order Schedule Dermatology nurse visit (clinic) Outpatient Referral Routine Expected: 08/27/2024 (Approximate), Expires: 11/18/2024 documented as of this encounter Visit Diagnoses Diagnosis Wound Care Skin Post Surgery [Z48.817]- Primary documented in this encounter Additional Health Concerns Assessment Noted Time PHQ-9 Depression Total Score: 0 09/19/20 17 8:32 AM GEOLOGICAL AIDE documented as of this encounter Care Teams Rehabilitation Tech Relationship Specialty Start Date End Date Britney Ramirez APRN, C.N.P., D.N.P. [address] [place] [phone] PCP - General 04/10/23 documented as of this encounter
--- OUTSIDE RECORDS SUMMARY | 2024-08-29 08:42 | XMS_ITS ---
Author Organization [facility] Address [address] [place] [address] Care Team Providers Care Customer Service Administrator Name Role Phone Unavailable Unavailable Unavailable Surgery Details Not on file Complications Check Surgery Details section. Procedure Estimated Blood Loss Check Surgery Details section. Procedure Findings Check Surgery Details section. Procedure Specimens Taken Check Surgery Details section.
--- OUTSIDE RECORDS SUMMARY | 2024-08-29 08:43 | XMS_ITS | Encounter Summary ---
Author Organization [facility] Address [address] [place] [address] Care Team Providers Care Upper Leather Sorter Name Role Phone Britney Ramirez APRN, C.N.PKarol, D.N.P. P [facility] Care Provider Reason for Visit * Reason Comments Skin Check FSE * Appointment Request (Routine) - Closed Specialty Diagnoses / Procedures Referred By Iona vee Referred To Contact Dermatology Referral ID Status Reason Start Date Expiration Date Visits Re quested Visits Authorized [id number] Closed 05/10/2024 05/10/2025 1 1 Encounter Details Date Type Department Care Team (Latest Contact Info) Description 08/06/2024 10:45 AM CDT Comprehensive Visit Department of Dermatology in [place], [place] [address] [place] [phone] Delaney Rivera M.D. [address] [place] [phone] Neoplasm Uncertain Behavior Skin (Primary Dx); Cancer Skin Squamous Cell Personal History; Keratosis Seborrheic; Lentigo; Angioma Gutierrez; Nevi Multiple; Dermatitis Seborrheic; Keratosis Seborrheic Inflamed Social History Tobacco Use Types Packs/Day Years Used Date Smoking Tobacco: Never Smokeless Tobacco: Never Alcohol Use Standard Drinks/Week Comments Not Currently 0 (1 standard drink = 0.6 oz pur e alcohol) [facility] Utilities Answer Date Recorded In the past 12 months has [employer] electric, gas, oil, or water company threatened [...] declined 10/28/2022 How often do you attend catholic or taoism serv ices? Patient declined 10/28/2022 Do you belong to any clubs o r organizations such as catholic groups, unions, fraternal or [...] Answer Date Recorded PHQ-2 Score 0 11/07/2022 [facility] of Occupat ional Health - Occupational Stress [...] your living situation today? I have a [facility] place to live 04/16/2024 Education Answer Date Recorded What is the highest level of school you have completed or the highest degree you have received? Associate degree: occupational, technical, or vocational program 02/02/2021 Comments No Sex and Gender Information Value Date Recorded Sex Assigned at Female 12/15/2022 12:54 PM SERIALS LIBRARIAN Legal Sex Female 11:38 PM SERIALS LIBRARIAN Gender Identity Female 09/19/2017 11:16 AM SERIALS LIBRARIAN Sexual Orientation Straight 09/19/2017 11 :16 AM SERIALS LIBRARIAN documented as of this encounter Patient Instructions [...] 14 days, please call our department at [phone]. Signs of infection: Please call us if [...] heal. When to call Call us at [phone] if you have any of the following [...] environment. Lip Balms: Palmers Aaliyah Butter Lip [place] SPF 15 All Good Lip [place] SPF 15 (Zinc Oxide only 3.5%) TIZO [...] especially between 10:00am and 3:00pm. Ban the olivas: There is no such thing as a [...] may also provided a prescription oil called [place]. This contains a mild steroid for anti-inflammatory [...] soap is recommended. It is available on [employer]. Use on affected areas in the shower daily 5-Fluorouracil/Calcipotriene Cream You have been prescribed a topical medication called 5- Fluorouracil/Calcipotriene cream to treat Actinic Keratosis (precancers). This combination topical cream is not typically covered by insurance and can be quite expensive if both medications are prescribed separately. Skin Medicinals: Your prescription: Your physician will send your prescription to the pharmacy through [email or web address] Your verification: You will receive an email from [email or web address] where you will follow the instructions withinthe [...] be reactivated by stress. Over 90% of [place] adults have been exposed to this virus [...] moisten a cotton ball with acetone (nail wallisian remover) - avoiding eyes - to remove [...] or have yellow, pus-like drainage. Please call [phone] with questions documented in this encounter Progress Notes * Delaney Rivera M.D. - 08/06/2024 10:45 AM CDT Images from the original note were not included. 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 CHIEF COMPLAINT Skin Check (FSE), last FSE [facility] 05/2023 HISTORY OF PRESENT ILLNESS Amanda [...] She has been receiving wound care through [facility] in [place]. She has been a series of antibiotics sinceOctober and November. She is currently on cephalexin. She had wound culture done at the derma Keratosis Actinic 2007 5FU/kashif face and chest Malignant Neoplasm Of Skin Squamous Cell Carcinoma 07/2020 right proximal pretibial region medial, keratoacanthoma, [facility], treated with radiation Malignant Neoplasm Of Skin Squamous Cell Carcinoma 07/2020 right proximal pretibial area lateral,keratoacanthoma, [facility], treated with radiation Nevus Atypical 2010 [...] verbal consent was obtained in the patient???s chitimacha language by Dr. Rivera wherein commonrisks, benefits, [...] Delaney Rivera MD Family Medicine Skin Care [facility] Department This note was partially scribed [...] LAB PATH DERM ORDERABLES Fi nal Result [facility] [address] [place] [address], [facility] [address] [address] documented in this encounter Visit Diagnoses Diagnosis Neoplasm Uncertain Behavior Skin- Primary Cancer Skin Squamous Cell Personal History Keratosis Seborrheic Lentigo Angioma Gutierrez Nevi Multiple Dermatitis Seborrheic Keratosis Seborrheic Inflamed documented in this encounter Additional Health Concerns Assessment Noted Time PHQ-9 Depression Total Score: 0 09/19/20 17 8:32 AM SERIALS LIBRARIAN documented as of this encounter Care Teams Upper Leather Sorter Relationship Specialty Start Date End Date Britney Ramirez APRN, C.N.P., D.N.P. [address] [place] [phone] PCP - General 04/10/23 documented as of this encounter
--- OUTSIDE RECORDS SUMMARY | 2024-08-29 08:43 | XMS_ITS | Encounter Summary ---
Author Organization [facility] Address [address] [place] [address] Care Team Providers Care Metalsmith Name Role Phone Britney Ramirez APRN C.N.PKarol, D.N.P. P [facility] Care Provider Reason for Referral * Outpatient (Routine) - Closed Specialty Diagnoses / Procedures Referred By Iona t Referred To Contact Dermatology Brittany Cazares M.D. 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 [address] [place] [phone] Phone: tel: fax: [facility] Region Referral ID Status Reason Start Date Expiration Date Visits Re quested Visits Authorized [id number] Closed 08/09/2024 08/09/2025 1 1 Encounter Details Date Type Department Care Team (Latest Contact Info) Description 08/13/2024 11:30 AM CDT Procedure visit Department of Dermatology in [place], [place] [address] [place] [phone] Brittany Cazares M.D. 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 Patient declined 10/28/2022 Do you belong to any clubs o r organizations such as baptism groups, unions, fraternal or [...] Answer Date Recorded PHQ-2 Score 0 11/07/2022 [facility] of Occupat ional Health - Occupational [...] your living situation today? I have a [facility] place to live 04/16/2024 Education Answer Date Recorded What is the highest level of school you have completed or the highest degree you have received? Associate degree: occupational, technical, or vocational program 02/02/2021 Comments No Sex and Gender Information Value Date Recorded Sex Assigned at Female 12/15/2022 12:54 PM WOODWORKING SHOP HAND Legal Sex Female 11:38 PM WOODWORKING SHOP HAND Gender Identity Female 09/19/2017 11:16 AM WOODWORKING SHOP HAND Sexual Orientation Straight 09/19/2017 11 :16 AM WOODWORKING SHOP HAND documented as of this encounter Last Filed [...] The Dermatology Nurses can be reached at ([phone]) Monday-Monday between 8:00am - 4:00pm. Leave a message if no one answers. We will return your call as soon as we are able. If you need assistance after clinic hours or on weekends for possible infection- Please call the [facility] Test Examiner: [phone] and to be connected with Dr. Wilma Cazares if you have any: increasing pain not managed with wvhj-mqq-nyuvlfv pain medication, soaking through bandages, and any [...] or call the Dermatology Nurse Line at [phone]. 5-Fluorouracil/Calcipotriene Cream You have been prescribed a topical medication called 5- Fluorouracil/Calcipotriene cream to treat Actinic Keratosis (precancers). This combination topical cream is not typically covered by insurance and can be quite expensive if both medications are prescribed separately. Skin Medicinals: Your prescription: Your physician will send your prescription to the pharmacy through [email or web address] Your verification: You will receive an email from www.[email or web address] where you will follow the instructions withinthe email to provide your billing and shipping information. Your medication will be shipped directly to you! If you have any questions you can email Skin Medicinals at [email or web address] or you can call them at . [...] moisten a cotton ball with acetone (nail kittitian remover) - avoiding eyes - to remove [...] or have yellow, pus-like drainage. Please call [phone] with questions documented in this encounter Procedure Notes * Brittany Cazares M.D. 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 Date of Surgery: 08/13/2024 Surgeon: Dr. Wilma Cazares M.D. Location: [facility] Visit Type: Outpatient PostOp Diagnosis: same Anatomic Location: left masters Preoperative size: 1.4 x 1.5 cm [facility] number: 407 Indication(s) for Mohs [...] field therapy to the left masters using 2-jmrdpyyiopvo-avbcgduxjyrdu twice daily for 14-21 days once the skin of the masters has completely healed from today's procedure. --- Wilma Cazares M.D. 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 - 08/13/2024 11:30 AM CDT Brittany Cazares M.D. ? 08/14/2024 ??1:03 PM PREOP INDICATION: REMOVAL. Date of Surgery: 08/13/2024 Surgeon: Dr. Wilma Cazares M.D. Location: [facility] Visit Type: Outpatient PostOp Diagnosis: same Anatomic Location: left masters Preoperative size: 1.4 x 1.5 cm [facility] number: 407 Indication(s) for Mohs [...] field therapy to the left masters using 3-xvseuxpbgqko-vrbhcvjpmbmtw twice daily for 14-21 days once the skin of the masters has completely healed from today's procedure. --- Wilma Cazares M.D. Delaney Rivera M.D. 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 [address] [place] [phone] PCP - General 04/10/23 documented as of this encounter
--- OUTSIDE RECORDS SUMMARY | 2024-08-29 08:43 | XMS_ITS | Encounter Summary ---
Author Organization [facility] Address [address] [place] [address] Care Team Providers Care Flue Gas Analyst Name Role Phone Britney Ramirez APRN, C.N.P., D.N.P. P [facility] Care Provider Reason for Visit * Reason Comments Med Refill Encounter Details Date Type Department Care Team (Late st Contact Info) Description 07/30/2024 Refill Department of Community Internal Medicine in [address] [facility] [phone] Britney Ramirez APRN, C.N.P., D.N.P. [address] [phone] Med Refill Social History Tobacco Use Types Packs/Day Years Used Date Smoking Tobacco: Never Smokeless Tobacco: Never Alcohol Use Standard Drinks/Week Comments Not Currently 0 (1 standard drink = 0.6 oz pur e alcohol) [facility] Utilities Answer Date Recorded In the past 12 months has e electric, gas, oil, or water [employer] threatened to shut off services in your [...] declined 10/28/2022 How often do you attend buddhism or jainism serv ices? Patient declined 10/28/2022 Do you belong to any clubs o r organizations such as buddhism groups, unions, fraternal or [...] Answer Date Recorded PHQ-2 Score 0 11/07/2022 [facility] of Occupat ional Health - Occupational [...] your living situation today? I have a [facility] place to live 04/16/2024 Education Answer Date Recorded What is the highest level of school you have completed or the highest degree you have received? Associate degree: occupational, technical, or vocational program 02/02/2021 Comments No Sex and Gender Information Value Date Recorded Sex Assigned at Female 12/15/2022 12:54 PM LITHOGRAPHED PLATE INSPECTOR Legal Sex Female 11:38 PM LITHOGRAPHED PLATE INSPECTOR Gender Identity Female 09/19/2017 11:16 AM LITHOGRAPHED PLATE INSPECTOR Sexual Orientation Straight 09/19/2017 11 :16 AM LITHOGRAPHED PLATE INSPECTOR documented as of this encounter Miscellaneous Notes * Telephone Encounter - Kalli Cuellar - 07/31/2024 9:33 AM CDT Patient needs to be seen for further refills documented in this encounter Plan of Treatment Not on file documented as of this encounter Visit Diagnoses Diagnosis Hypercholesterolemia documented in this encounter Additional Health Concerns Assessment Noted Time PHQ-9 Depression Total Score: 0 09/19/20 17 8:32 AM LITHOGRAPHED PLATE INSPECTOR documented as of this encounter Care Teams Flue Gas Analyst Relationship Specialty Start Date End Date Britney Ramirez APRN, C.N.P., D.N.P. [address] [place] [phone] PCP - General 04/10/23 documented as of this encounter
--- OUTSIDE RECORDS SUMMARY | 2024-08-29 08:43 | XMS_ITS | Encounter Summary ---
Author Organization [facility] Address [address] [place] [address] Care Team Providers Care Explosive Ordnance Disposal Technician Name Role Phone Britney Ramirez APRN, C.N.P., D.N.P. P [facility] Care Provider Encounter Details Date Type Department Care Team (Late st Contact Info) Description 08/06/2024 11:15 AM CDT Ancillary Procedure Department of Dermatology Social History Tobacco Use Types Packs/Day Years Used Date Smoking Tobacco: Never Smokeless Tobacco: Never Alcohol Use Standard Drinks/Week Comments Not Currently 0 (1 standard drink = 0.6 oz pur e alcohol) [facility] Utilities Answer Date Recorded In the past 12 months has [employer], gas, oil, or water [employer] threatened to shut off services in your [...] declined 10/28/2022 How often do you attend presybeterian or mu-ism serv ices? Patient declined 10/28/2022 Do you belong to any clubs o r organizations such as presybeterian groups, unions, fraternal or [...] Answer Date Recorded PHQ-2 Score 0 11/07/2022 [facility] of Occupat ional [facility] - Occupational Stress Questionnaire Answer Date Recorded [...] your living situation today? I have a [facility] place to live 04/16/2024 Education Answer Date Recorded What is the highest level of school you have completed or the highest degree you have received? Associate degree: occupational, technical, or vocational program 02/02/2021 Comments No Sex and Gender Information Value Date Recorded Sex Assigned at Female 12/15/2022 12:54 PM REED WORKER Legal Sex Female 11:38 PM REED WORKER Gender Identity Female 09/19/2017 11:16 AM REED WORKER Sexual Orientation Straight 09/19/2017 11 :16 AM REED WORKER documented as of this encounter Plan of [...] Time PHQ-9 Depression Total Score: 0 09/19/20 8:32 AM REED WORKER documented as of this encounter Care Teams Explosive Ordnance Disposal Technician Relationship Specialty Start Date End Date Jv-Britney Bass APRN, C.N.P., D.N.P. [address] [place] [phone] PCP - General 04/10/23 documented as of this encounter
--- OUTSIDE RECORDS SUMMARY | 2024-08-29 08:43 | XMS_ITS | Encounter Summary ---
Author Organization [facility] Address [address] [place] [address] Care Team Providers Care Practical Nurse Name Role Phone Britney Ramirez APRN, C.N.P., D.N.P. [facility] Care Provider Reason for Referral * Outpatient (Routine) - Authorized Specialty Diagnoses / Procedures Referred By Contnuris t Referred To Contact Family Medicine Diagnoses Hypercholesterolemia Britney Ramirez APRN, C.N.P., D.N.P. [address] [place] [address] Phone: tel: fax: [facility] Referral ID Status Reason Start Date Expiration Date V isits Requested Visits Authorized [id number] Authorized 07/30/2024 01/29/2026 1 1 Scheduling Instructions Service prompted by Rx/Med algorithm Reason for Visit * Reason Comments Med Refill Encounter Details Date Type Department Care Team (Late st Contact Info) Description 07/27/2024 Refill Department of Community Internal Medicine in [place], [place] [address] [place] [address] Jarrell Coronel P.AAnnabel. [address] [place] [phone] Med Refill Social History Tobacco [...] declined 10/28/2022 How often do you attend yarsani or taoist serv ices? Patient declined 10/28/2022 Do you belong to any clubs o r organizations such as yarsani groups, unions, fraternal or athletic groups, or [...] Answer Date Recorded PHQ-2 Score 0 11/07/2022 [facility] of Occupat ional Health - Occupational Stress [...] Sex Assigned at Female 12/15/2022 12:54 PM VIBRATORY PILE DRIVER Legal Sex Female 11:38 PM VIBRATORY PILE DRIVER Gender Identity Female 09/19/2017 11:16 AM VIBRATORY PILE DRIVER Sexual Orientation Straight 09/19/2017 11 :16 AM VIBRATORY PILE DRIVER documented as of this encounter Miscellaneous Notes * Telephone Encounter - Yonny Castañedamyah Ahumada - 07/29/2024 1:00 PM CDT Per Rx [...] Total Score: 0 09/19/20 17 8:32 AM VIBRATORY PILE DRIVER documented as of this encounter Care Teams Practical Nurse Relationship Specialty Start Date End Date Britney Ramirez APRN, C.N.P., D.N.P. [address] [phone] PCP - General 04/10/23 documented as of this encounter
--- OUTSIDE RECORDS SUMMARY | 2024-08-29 08:43 | XMS_ITS | Encounter Summary ---
Author Organization [facility] Address [address] [place] [address] Care Team Providers Care Commercial Sales Representative Name Role Phone Britney Ramirez APRN, C.N.P., D.N.P. 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 [address] [place] [phone] Phone: tel: fax: [facility] Region Referral ID Status Reason Start Date Expiration Date Visits Re quested Visits Authorized [id number] Closed 08/09/2024 08/09/2025 1 1 Encounter Details Date Type Department Care Team (Late st Contact Info) Description 08/08/2024 Clinical Communication Department of Dermatology in [address] [phone] Delaney Rivera M.D. [address] [place] [phone] Social History Tobacco Use Types Packs/Day Years Used Date Smoking Tobacco: Never Smokeless Tobacco: Never Alcohol Use Standard Drinks/Week Comments Not Currently 0 (1 standard drink = 0.6 oz pur e alcohol) [facility] Utilities Answer Date Recorded In [...] declined 10/28/2022 How often do you attend buddhist or shinto serv ices? Patient declined 10/28/2022 Do you belong to any clubs o r organizations such as buddhist groups, unions, fraternal or [...] 11/07/2022 [facility] of Occupat ional [facility] - Occupational Stress Questionnaire Answer Date [...] your living situation today? I have a [facility] place to live 04/16/2024 Education Answer Date Recorded What is the highest level of school you have completed or the highest degree you have received? Associate degree: occupational, technical, or vocational program 02/02/2021 Comments No Sex and Gender Information Value Date Recorded Sex Assigned at Female 12/15/2022 12:54 PM CHHA Legal Sex Female 11:38 PM CHHA Gender Identity Female 09/19/2017 11:16 AM CHHA Sexual Orientation Straight 09/19/2017 11 :16 AM CHHA documented as of this encounter Miscellaneous Notes [...] prescription medications and arrange to have a spike driver. Mohs pamphlet and additional information regarding [...] on file documented as of this encounter Results * LEELEE [facility] single site (08/13/2024 11:30 AM CDT) Narrative Brittany Cazares M.D. - 08/13/2024 11:30 AM CDBrittany Fraser M.D. ? 08/14/2024 ??1:03 PM PREOP INDICATION: REMOVAL. Date of Surgery: 08/13/2024 Surgeon: Dr. Wilma Cazares M.D. Location: [facility] Visit Type: Outpatient PostOp Diagnosis: same Anatomic Location: left masters Preoperative size: 1.4 x 1.5 cm [facility] number: 407 Indication(s) for Mohs Micrographic [...] field therapy to the left masters using 3-ycjkqywrfdeu-ytetomirjhktb twice daily for 14-21 days once the [...] Total Score: 0 09/19/20 17 8:32 AM CHHA documented as of this encounter Care Teams Commercial Sales Representative Relationship Specialty Start Date End Date Britney Ramirez APRN, C.N.P., D.N.P. [address] [place] [phone] PCP - General 04/10/23 documented as of this encounter
--- OUTSIDE RECORDS SUMMARY | 2024-08-29 08:43 | XMS_ITS | Encounter Summary ---
Author Organization [facility] Address [address] [place] [address] Care Team Providers Care Drafter Tool Design Name Role Phone Britney Ramirez APRN, C.N.P., D.N.P. P [facility] Care Provider Encounter Details Date [...] Recorded In the past 12 months has [employer], gas, oil, or water [employer] threatened to shut off services in your [...] declined 10/28/2022 How often do you attend zoroastrian or protestant serv ices? Patient declined 10/28/2022 Do you belong to any clubs o r organizations such as zoroastrian groups, unions, fraternal or athletic groups, or [...] Date Recorded PHQ-2 Score 0 11/07/2022 [facility] - Occupational Stress Questionnaire Answer Date [...] your living situation today? I have a [facility] place to live 04/16/2024 Education Answer Date Recorded What is the highest level of school you have completed or the highest degree you have received? Associate degree: occupational, technical, or vocational program 02/02/2021 Comments No Sex and Gender Information Value Date Recorded Sex Assigned at Female 12/15/2022 12:54 PM KETTLEMAN Legal Sex Female 11:38 PM KETTLEMAN Gender Identity Female 09/19/2017 11:16 AM KETTLEMAN Sexual Orientation Straight 09/19/2017 11 :16 AM KETTLEMAN documented as of this encounter Plan of [...] Total Score: 0 09/19/20 17 8:32 AM KETTLEMAN documented as of this encounter Care Teams Drafter Tool Design Relationship Specialty Start Date End Date Jv-Britney Bass APRN, C.N.P., D.N.P. [address] [place] [phone] PCP - General 04/10/23 documented as of this encounter
--- OUTSIDE RECORDS SUMMARY | 2024-08-29 08:44 | XMS_ITS | Clinical Summary ---
Author Organization [facility] Address [place], [place] [address] Care Team Providers Care Reading Tutor Name Role Phone Ember Hebert LEATHER DRESSER Unavailable [phone] Allyson Resendiz LEATHER DRESSER Unavailable [phone] Janice Ambrosio PA-C Primary Care Provider [phone] Allergies Active Allergy Reactions Criticality Noted Date [...] and informed consent obtained. The endoscope [id number] was passed through the anus andadvanced to the cecum, identified by appendiceal orifice and ileocecal valve.The colonoscopy was performed without difficulty. The patient toleratedthe procedure well. The quality of the bowel preparation was evaluatedusing the BBPS ([place] Bowel Preparation Scale) with scores of: Right [...] 6:00 PM 07/30/2014 2:04 PM Care Teams Reading Tutor Relationship Specialty Start Date End Date Janice Ambrosio PA-C [facility] [address] [phone] PCP - General Physician Materials And Corrosion Engineer 11/16/22 Ember Hebert LEATHER DRESSER [address] [place] [phone] 06/21/11 Allyson Resendiz NP [address] [place] [phone] Nurse Practitioner 12/16/13
--- OUTSIDE RECORDS SUMMARY | 2024-08-29 08:44 | XMS_ITS | Encounter Summary ---
Author Organization [facility] Address [address] [place] [address] Care Team Providers Care Inhalation Therapy Teacher Name Role Phone Britney Ramirez APRN, C.N.P., D.N.P. P [facility] Care Provider Reason for Visit * Reason Comments Med Refill Encounter Details Date Type Department Care Team (Late st Contact Info) Description 06/05/2024 Refill [facility] Express Care at [facility] in [place], [place] [address] [place] [address] Britney Ramirez APRN, C.N.P., D.N.P. [address] [place] [phone] Med Refill Social History Tobacco Use Types Packs/Day Years Used Date Smoking Tobacco: Never Smokeless Tobacco: Never Alcohol Use Standard Drinks/Week Comments Not Currently 0 (1 standard drink = 0.6 oz pur e alcohol) [facility] Utilities Answer Date Recorded In the past [...] How often do you attend restorationism or temple serv ices? Patient declined 10/28/2022 Do you [...] your living situation today? I have a [facility] place to live 04/16/2024 Education Answer Date Recorded What is the highest level of school you have completed or the highest degree you have received? Associate degree: occupational, technical, or vocational program 02/02/2021 Comments No Sex and Gender Information Value Date Recorded Sex Assigned at Female 12/15/2022 12:54 PM ROLLER INSPECTOR Legal Sex Female 11:38 PM ROLLER INSPECTOR Gender Identity Female 09/19/2017 11:16 AM ROLLER INSPECTOR Sexual Orientation Straight 09/19/2017 11 :16 AM ROLLER INSPECTOR documented as of this encounter Plan of Treatment Not on file documented as of this encounter Visit Diagnoses Diagnosis Sinusitis Acute Maxillary documented in this encounter Additional Health Concerns Assessment Noted Time PHQ-9 Depression Total Score: 0 09/19/20 17 8:32 AM ROLLER INSPECTOR documented as of this encounter Care Teams Inhalation Therapy Teacher Relationship Specialty Start Date End Date Britney Ramirez APRN, C.N.P., D.N.P. [address] [place] [phone] PCP - General 04/10/23 documented as of this encounter
== END 2024-08-29 08:42 | disposition home or self-care (01) ==
LOC: WOUND 08:41
PROVIDERS: PCP Internal Medicine; Visit Provider Nurse Practitioner Family
DX: Z48.817 Encounter for surgical aftercare following surgery on the skin and subcutaneous tissue (principal); C44.92 Squamous cell carcinoma of skin, unspecified
CPT/HCPCS: 11042